=== PATIENT | female | born 1940 | race Caucasian/White ===

== ENCOUNTER → 2018-02-01 13:49 | Outpatient (CLI) | payer MEDICARE, BC, SELFPAY ==
[2018-02-01 15:03] LABS: Add Manual Diff / Slide Review NO; Basophils Percent Auto 0.9 % (0-2); Eosinophils Percent Auto 1.2 % (2-4); Hematocrit 33.4 % (36-46); Hemoglobin 11.3 g/dL (12.0-16.0); Lymphocytes Percent Auto 24.8 % (25-40); Mean Corpuscular HGB Conc 33.8 % (30-36); Mean Corpuscular Hemoglobin 33.2 PG (26-34); Mean Corpuscular Volume 98.1 fL (80-100); Monocytes Percent Auto 12.5 % (3-14); Neutrophils Absolute Auto 3400 /uL (3000-5900); Neutrophils Percent Auto 60.6 % (50-75); Platelet Count 174 X10^3/uL (150-400); Red Cell Distribution Width 16.7 % (11.6-14.8); White Blood Cell Count 5.5 X10^3/uL (4.5-11.0)
== END ==
PROVIDERS: Family Provider Internal Medicine; PCP Internal Medicine; Visit Provider Obstetrics & Gynecology
DX: C57.4 Malignant neoplasm of uterine adnexa, unspecified (principal)
CPT/HCPCS: 36415; 85025

== ENCOUNTER → 2018-02-23 16:05 | Outpatient (CLI) | payer MEDICARE, BC, SELFPAY ==
[2018-02-23 17:15] LABS: Add Manual Diff / Slide Review NO; Eosinophils Percent Auto 1.8 % (2-4); Hematocrit 32.8 % (36-46); Lymphocytes Percent Auto 35.2 % (25-40); Mean Corpuscular HGB Conc 33.5 % (30-36); Mean Corpuscular Hemoglobin 34.2 PG (26-34); Mean Corpuscular Volume 102.3 fL (80-100); Monocytes Percent Auto 15.4 % (3-14); Neutrophils Absolute Auto 2100 /uL (3000-5900); Neutrophils Percent Auto 46.6 % (50-75); Platelet Count 197 X10^3/uL (150-400); Red Blood Cell Count 3.21 X10^6/uL (4.0-5.2); Red Cell Distribution Width 16.6 % (11.6-14.8); White Blood Cell Count 4.6 X10^3/uL (4.5-11.0)
== END ==
PROVIDERS: Family Provider Internal Medicine; PCP Internal Medicine; Visit Provider Obstetrics & Gynecology
DX: C56.9 Malignant neoplasm of unspecified ovary (principal)
CPT/HCPCS: 36415; 85025

== ENCOUNTER → 2018-03-14 14:14 | Outpatient (CLI) | payer MEDICARE, BC, SELFPAY ==
[2018-03-14 14:40] LABS: Add Manual Diff / Slide Review NO; Basophils Percent Auto 1.2 % (0-2); Eosinophils Percent Auto 1.3 % (2-4); Hematocrit 33.3 % (36-46); Hemoglobin 11.4 g/dL (12.0-16.0); Lymphocytes Percent Auto 25.6 % (25-40); Mean Corpuscular HGB Conc 34.2 % (30-36); Mean Corpuscular Hemoglobin 35.4 PG (26-34); Mean Corpuscular Volume 103.6 fL (80-100); Monocytes Percent Auto 12.2 % (3-14); Neutrophils Absolute Auto 3700 /uL (3000-5900); Neutrophils Percent Auto 59.7 % (50-75); Platelet Count 184 X10^3/uL (150-400); Red Blood Cell Count 3.22 X10^6/uL (4.0-5.2); Red Cell Distribution Width 15.6 % (11.6-14.8); White Blood Cell Count 6.2 X10^3/uL (4.5-11.0)
== END ==
PROVIDERS: Family Provider Internal Medicine; PCP Internal Medicine; Visit Provider Obstetrics & Gynecology
DX: C57.4 Malignant neoplasm of uterine adnexa, unspecified (principal)
CPT/HCPCS: 36415; 85025

== ENCOUNTER → 2018-06-20 11:45 | Outpatient (CLI) | payer MEDICARE, BC, SELFPAY ==
[2018-06-20 12:04] LABS: Add Manual Diff / Slide Review NO; Basophils Percent Auto 0.4 % (0-2); Hematocrit 36.9 % (36-46); Hemoglobin 12.2 g/dL (12.0-16.0); Lymphocytes Percent Auto 20.9 % (25-40); Mean Corpuscular HGB Conc 33.2 % (30-36); Mean Corpuscular Hemoglobin 33.6 PG (26-34); Mean Corpuscular Volume 101.1 fL (80-100); Monocytes Percent Auto 3.5 % (3-14); Neutrophils Absolute Auto 3600 /uL (3000-5900); Neutrophils Percent Auto 73.2 % (50-75); Platelet Count 163 X10^3/uL (150-400); Red Blood Cell Count 3.65 X10^6/uL (4.0-5.2); Red Cell Distribution Width 12.4 % (11.6-14.8)
== END ==
PROVIDERS: Family Provider Internal Medicine; PCP Internal Medicine; Visit Provider Obstetrics & Gynecology
DX: C57.4 Malignant neoplasm of uterine adnexa, unspecified (principal); R68.89 Other general symptoms and signs
CPT/HCPCS: 36415; 85025

== ENCOUNTER → 2018-07-02 12:08 | Outpatient (CLI) | payer MEDICARE, BC, SELFPAY | PROVIDERS: Family Provider Internal Medicine; PCP Internal Medicine; Visit Provider Internal Medicine | DX: Z12.31 Encounter for screening mammogram for malignant neoplasm of breast (principal); Z53.9 Procedure and treatment not carried out, unspecified reason ==

== ENCOUNTER → 2018-07-11 10:23 | Outpatient (CLI) | payer MEDICARE, BC, SELFPAY ==
--- NOTE | 2018-07-11 | DI.MG.S_ITS ---
BILATERAL DIGITAL SCREENING MAMMOGRAM 3D/2D WITH CAD: 07/11/2018 Comparison is made to exams dated: 07/05/2017 mammogram, 07/03/2016 mammogram, and 07/01/2015 mammogram - [facility]. The tissue of both breasts is extremely dense, which lowers the sensitivity of mammography. Current study was also evaluated with a Computer Aided Detection (CAD) system. No significant masses, calcifications, or other findings are seen in either breast. There has been no significant interval change. IMPRESSION: NEGATIVE There is no mammographic evidence of malignancy. A 1 year screening mammogram is recommended. This exam was interpreted at Station ID: [id number]. NOTE: For mammograms, a report in lay terms will be sent to the patient. Approximately 15% of breast malignancies will not be visualized mammographically. In the management of a palpable breast mass, a negative mammogram must not discourage biopsy of a clinically suspicious lesion. Electronically Signed By: Kyleigh leos/[email or web address]:07/11/2018 14:28:23 copy to: Estrada Bahena letter sent: Normal Exam ACR BI-RADS Category 1: Negative [id number]
[2018-07-11 11:59] LABS: Add Manual Diff / Slide Review NO; Basophils Percent Auto 0.4 % (0-2); Eosinophils Percent Auto 0.5 % (2-4); Hematocrit 31.7 % (36-46); Hemoglobin 10.7 g/dL (12.0-16.0); Lymphocytes Percent Auto 11.8 % (25-40); Mean Corpuscular HGB Conc 33.6 % (30-36); Mean Corpuscular Volume 101.4 fL (80-100); Monocytes Percent Auto 6.7 % (3-14); Neutrophils Absolute Auto 5400 /uL (3000-5900); Neutrophils Percent Auto 80.6 % (50-75); Platelet Count 318 X10^3/uL (150-400); Red Blood Cell Count 3.13 X10^6/uL (4.0-5.2); Red Cell Distribution Width 13.3 % (11.6-14.8); White Blood Cell Count 6.7 X10^3/uL (4.5-11.0)
== END ==
PROVIDERS: Family Provider Obstetrics & Gynecology; PCP Internal Medicine; Visit Provider Internal Medicine
DX: Z12.31 Encounter for screening mammogram for malignant neoplasm of breast (principal); C57.00 Malignant neoplasm of unspecified fallopian tube
CPT/HCPCS: 36415; 77063; 77067; 85025

== ENCOUNTER → 2018-08-01 12:26 | Outpatient (CLI) | payer MEDICARE, BC, SELFPAY ==
[2018-08-01 13:03] LABS: Add Manual Diff / Slide Review NO; Basophils Percent Auto 0.9 % (0-2); Eosinophils Percent Auto 2.9 % (2-4); Hemoglobin 11.8 g/dL (12.0-16.0); Lymphocytes Percent Auto 23.1 % (25-40); Mean Corpuscular HGB Conc 33.6 % (30-36); Monocytes Percent Auto 8.6 % (3-14); Neutrophils Absolute Auto 5300 /uL (3000-5900); Neutrophils Percent Auto 64.5 % (50-75); Platelet Count 220 X10^3/uL (150-400); Red Blood Cell Count 3.47 X10^6/uL (4.0-5.2); Red Cell Distribution Width 15.6 % (11.6-14.8); White Blood Cell Count 8.2 X10^3/uL (4.5-11.0)
[2018-08-01 14:19] LABS: Alanine Aminotransferase 36 IU/L (9-52); Albumin Globulin Ratio 1.2 (1.0-2.8); Alkaline Phosphatase 79 U/L (38-126); Aspartate Aminotransferase 47 IU/L (14-36); Bilirubin Total 0.4 mg/dL (0.2-1.3); Blood Urea Nitrogen 40 mg/dL (7-17); Calcium 9.2 mg/dL (8.4-10.2); Carbon Dioxide 18 mmol/L (22-32); Chloride 108 mmol/L (98-107); Estimated Glomerular Filt Rate 53.9 mL/min (>60); Globulin 3.3 g/dL (1.7-4.1); Glucose 116 mg/dL (80-110); HEMOLYSIS < 15 (0-50); Potassium 5.2 mmol/L (3.4-5.1); Sodium 137 mmol/L (137-145); Total Protein 7.3 g/dL (6.3-8.2)
== END ==
PROVIDERS: Family Provider Obstetrics & Gynecology; PCP Internal Medicine; Visit Provider Physician Assistant Medical
DX: C56.9 Malignant neoplasm of unspecified ovary (principal)
CPT/HCPCS: 36415; 80053; 85025

== ENCOUNTER 2018-08-10 15:15 | Outpatient (RCR) | payer MEDICARE, BC, SELFPAY ==
--- NOTE | 2018-07-17 12:08 | PT.OPPOC ---
Current Diagnoses Lymphedema, not elsewhere classified (07/15/18) Sciatica, unspecified side (07/15/18) Provider Visit Care Team Role Provider Type Kristy Ortega MD Family Provider Non-Staff Primary Care Provider Specialty: Medical Address: [address] [place], [address] Email: Chuy Gudino MD Attending Provider Physician Specialty: Internal Medicine Address: [address] [place] [address], [phone] Email: [email or web address] Plan Of Care PT-OP-T Assessment and Plan Start: 07/15/18 15:14 Freq: Status: Active Protocol: Document 07/15/18 15:15 ADA (Rec: 07/17/18 12:08 ADA [id number]) Physical Therapy Assessment Rehab Potential Rehabilitation Potential Good Evaluation Complexity Number of Personal Factors/Comorbidities 3 or More Number of Body Systems Impaired 3 Clinical Presentation at Evaluation Evolving Impairments Impairments Activity Tolerance Edema Functional Mobility Goals Two Impairment Activity tolerance Life Enrichment Specialist Goal (LTG) Patient able to resume usual activities without worsening of her lymphedema. LTG Duration 8 wks One Impairment lymphedema exacerbation Retirement Goal (LTG) Decrease lymphedema sufficient to allow patient to resume use of compression stockings and self-manage her lymphedema LTG Duration 8 wks Assessment Summary Assessment Patient presents with exacerbation of her lymphedema and with signs and symptoms of cellulitis, currently being treated with antibiotics. Patient reports some improvement since starting medications. MLD is contraindicated during active infection. Patient requested no lymphedema wrapping today due to not having appropriate clothing and shoes to wear over. Tubigrip of appropriate sizes were applied to bilateral LE's for sequential compression, will do lymphedema wrapping next session and do further lymphedema management to include MLD when infection cleared as well as sequential lymphedema exercises for lymphedema reduction. Physical Therapy Plan Frequency and Duration Frequency of Treatment 3x/Week Duration of Treatment 2 months Plan of Care Start Date 07/15/18 Plan of Care End Date 09/14/18 Therapeutic Interventions Therapeutic Interventions Lymphedema Management Manual Therapy Patient/Caregiver Education Self-Care/Home Management Next Visit Focus/Plan Next Note Type Treatment Note Next Visit Plan Lymphedema wrapping, sequential lymphedema exercises. Plan of Care Dates Plan of Care Start Date 07/15/18 Plan of Care End Date 09/14/18 Please Sign and Return: I have reviewed this Plan of Care and certify that the skilled therapy services above are required to meet the patient?s needs. Physician Signature Date Printed Name and Credentials Clinical Instructor Signature Printed Name and Credentials
--- NOTE | 2018-07-17 12:08 | PT.OIE ---
Current Diagnoses Lymphedema, not elsewhere classified (07/15/18) Sciatica, unspecified side (07/15/18) Past Medical History (Last Updated 07/05/18 @ 11:04 by Charmaine Cabral) Pulmonary nodule (Chronic) Essential hypertension (Chronic) Fallopian tube carcinoma (Chronic) Hyperlipidemia (Chronic) Ovarian cancer (Chronic) Past Surgical History (Last Updated 07/05/18 @ 11:04 by Charmaine Cabral) Status post splenectomy (Inactive) Status post exploratory laparotomy (Inactive) History of partial pancreatectomy (Inactive) S/P total abdominal hysterectomy and bilateral salpingo-oophorectomy (~2013) Provider Visit Care Team Role Provider Type Kristy Ortega MD Family Provider Non-Staff Primary Care Provider Specialty: Medical Address: [address] [place] [address], [phone] Email: Chuy Gudino MD Attending Provider Physician Specialty: Internal Medicine Address: [address] [place] [address], [address] Email: [email or web address] Physical Therapy Initial Evaluation PT-OP-A Visit Information Start: 07/15/18 15:14 Freq: Status: Active Protocol: Document 07/15/18 15:15 [facility] (Rec: 07/17/18 12:08 [facility] [id number]) Out-Patient Physical Therapy Visit Information Visit Information Visit Type Initial Evaluation Visit Start Time 15:15 Visit Stop Time 16:05 Total Visit Minutes 50 Visit Number 1 Number of ENVIRONMENTAL MONITORING SPECIALIST Visits 0 Evaluation Information Evaluation Date 07/15/18 PT-OP-B Current Condition Start: 07/15/18 15:14 Freq: Status: Active Protocol: Document 07/15/18 15:15 SAK (Rec: 07/15/18 16:09 SAK [id number]) Current Condition History of Current Condition Onset Date 3 wks Current Complaints function-limiting swelling and redness bilateral LE's L greater than R History of Current Condition Started on a new chemo 3 wks ago; prior to that lymphedema was under control wearing compression stockings. Since starting chemo lymphedema worsened and became reddened and warm, unable to fit into compression stockings. Chemotherapy treatment held this week due to LE symptoms. Ultrasound performed bilateral LE's; no clot. Started on Doxacillin 07/12/18, Bactrim added today. Also has developed abdominal hernia since last seen in PT; can't have surgery due to cancer medications impact o healing. Has lost 12 lbs. Wearing Spanx to control abdominal and pelvic edema. Also reports recent symptoms of sciatica but at this time that is a secondary issue; states she has looked up some exercises and is performing on her own with some improvement of sciatica. Treatment Goals Patient/Caregiver Goals Reduce her edema sufficient to allow her to wear compression stockings and manage lymphedema independently. 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 PT-OP-J Posture/Palpation/Skin Start: 07/15/18 15:14 Freq: Status: Active Protocol: Document 07/15/18 15:15 [facility] (Rec: 07/17/18 12:08 [facility] [id number]) Skin Assessment Edema Assessment Bilateral Leg Edema Appearance Discolored Taut Comments lymphedema, reddening from toes to mid-calf PT-OP-N Lymphedema Start: 07/15/18 15:14 Freq: Status: Active Protocol: Document 07/15/18 15:15 [facility] (Rec: 07/17/18 12:08 [facility] [id number]) Lymphedema Measurements Lower Extremity Circumference Measurements Right Affected MT Heads 24.5 cm Medial Malleolus 28.6 cm 10 cm From Medial Malleolus 25.3 cm 20 cm From Medial Malleolus 29.4 cm 30 cm From Medial Malleolus 35.8 cm 40 cm From Medial Malleolus 35.2 cm 50 cm From Medial Malleolus 39.7 cm 60 cm From Medial Malleolus 39.8 cm 70 cm From Medial Malleolus 45.4 cm 80 cm From Medial Malleolus 52.5 cm Hip 57.7 cm Left Affected MT Heads 24 cm Medial Malleolus 31 cm 10 cm From Medial Malleolus 26.5 cm 20 cm From Medial Malleolus 28.8 cm 30 cm From Medial Malleolus 37 cm 40 cm From Medial Malleolus 37.4 cm 50 cm From Medial Malleolus 43 cm 60 cm From Medial Malleolus 45.5 cm 70 cm From Medial Malleolus 50.6 cm 80 cm From Medial Malleolus 58 cm Hip 62 cm Comments Lymphedema Comments skin reddened and taut mid calf to toes PT-OP-Q Treatments Start: 07/15/18 15:14 Freq: Status: Active Protocol: Document 07/15/18 15:15 [facility] (Rec: 07/15/18 16:29 [facility] [id number]) Lymphedema Treatment Manual Lymphatic Drainage Comments MLD contraindicated at this time due to active infection Lymphedema Wrapping Body Location right and left LE Materials right LE: Tubigrip size E toes to mid calf, size F toes to upper thigh left LE: Tibigrip size F toes to mid calf, size G toes to upper thigh Other Patient requests no wrapping today due to inability to don pants or shoes if wrapped. Will wear more appropriate clothing next session to allow for full lymphedema wrapping. Patient Education Other Elevate LE's as recommended by physician, wear appropriate clothing to allow wrapping if indicated next PT session. No MLD when being actively treated for infection. PT-OP-T Assessment and Plan Start: 07/15/18 15:14 Freq: Status: Active Protocol: Document 07/15/18 15:15 [facility] (Rec: 07/17/18 12:08 [facility] [id number]) Physical Therapy Assessment Rehab Potential Rehabilitation Potential Good Evaluation Complexity Number of Personal Factors/Comorbidities 3 or More Number of Body Systems Impaired 3 Clinical Presentation at Evaluation Evolving Impairments Impairments Activity Tolerance Edema Functional Mobility Goals Two Impairment Activity tolerance Locomotive Switch Operator Goal (LTG) Patient able to resume usual activities without worsening of her lymphedema. LTG Duration 8 wks One Impairment lymphedema exacerbation Locomotive Switch Operator Goal (LTG) Decrease lymphedema sufficient to allow patient to resume use of compression stockings and self-manage her lymphedema LTG Duration 8 wks Assessment Summary Assessment Patient presents with exacerbation of her lymphedema and with signs and symptoms of cellulitis, currently being treated with antibiotics. Patient reports some improvement since starting medications. MLD is contraindicated during active infection. Patient requested no lymphedema wrapping today due to not having appropriate clothing and shoes to wear over. Tubigrip of appropriate sizes were applied to bilateral LE's for sequential compression, will do lymphedema wrapping next session and do further lymphedema management to include MLD when infection cleared as well as sequential lymphedema exercises for lymphedema reduction. Physical Therapy Plan Frequency and Duration Frequency of Treatment 3x/Week Duration of Treatment 2 months Plan of Care Start Date 07/15/18 Plan of Care End Date 09/14/18 Therapeutic Interventions Therapeutic Interventions Lymphedema Management Manual Therapy Patient/Caregiver Education Self-Care/Home Management Next Visit Focus/Plan Next Note Type Treatment Note Next Visit Plan Lymphedema wrapping, sequential lymphedema exercises.
--- NOTE | 2018-07-20 16:19 | PT.OTN ---
Current Diagnoses Lymphedema, not elsewhere classified (07/20/18) Sciatica, unspecified side (07/20/18) Physical Therapy Treatment Note PT-OP-A Visit Information Start: 07/15/18 15:14 Freq: Status: Active Protocol: Document 07/20/18 15:20 SAK (Rec: 07/20/18 15:21 SAK [id number]) Out-Patient Physical Therapy Visit Information Visit Information Visit Type Treatment Note Visit Start Time 15:20 Visit Stop Time 16:00 Total Visit Minutes 40 Visit Number 2 Number of VB DEVELOPER Visits 0 Evaluation Information Evaluation Date 07/15/18 PT-OP-B Current Condition Start: 07/15/18 15:14 Freq: Status: Active Protocol: Document 07/15/18 15:15 SAK (Rec: 07/15/18 16:09 SAK [id number]) Current Condition History of Current Condition Onset Date 3 wks Current Complaints function-limiting swelling and redness bilateral LE's L greater than R History of Current Condition Started on a new chemo 3 wks ago; prior to that lymphedema was under control wearing compression stockings. Since starting chemo lymphedema worsened and became reddened and warm, unable to fit into compression stockings. Chemotherapy treatment held this week due to LE symptoms. Ultrasound performed bilateral LE's; no clot. Started on Doxacillin 07/12/18, Bactrim added today. Also has developed abdominal hernia since last seen in PT; can't have surgery due to cancer medications impact o healing. Has lost 12 lbs. Wearing Spanx to control abdominal and pelvic edema. Also reports recent symptoms of sciatica but at this time that is a secondary issue; states she has looked up some exercises and is performing on her own with some improvement of sciatica. Treatment Goals Patient/Caregiver Goals Reduce her edema sufficient to allow her to wear compression stockings and manage lymphedema independently. 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 PT-OP-C Subjective Start: 07/15/18 15:14 Freq: Status: Active Protocol: Document 07/20/18 15:21 SAK (Rec: 07/20/18 16:17 SAK [id number]) OP-PT Subjective Patient Comments Patient Comments Still on antibiotics, has been able to wear compression stockings past 3 days, still keeping legs up. Will be taking antibiotics another week. States her physician called her and agreed with no massage at this time due to infection; wants gentle ex. PT-OP-J Posture/Palpation/Skin Start: 07/15/18 15:14 Freq: Status: Active Protocol: Document 07/15/18 15:15 SAK (Rec: 07/17/18 12:08 [facility] [id number]) Skin Assessment Edema Assessment Bilateral Leg Edema Appearance Discolored Taut Comments lymphedema, reddening from toes to mid-calf PT-OP-N Lymphedema Start: 07/15/18 15:14 Freq: Status: Active Protocol: Document 07/15/18 15:15 SAK (Rec: 07/17/18 12:08 [facility] [id number]) Lymphedema Measurements Lower Extremity Circumference Measurements Right Affected MT Heads 24.5 cm Medial Malleolus 28.6 cm 10 cm From Medial Malleolus 25.3 cm 20 cm From Medial Malleolus 29.4 cm 30 cm From Medial Malleolus 35.8 cm 40 cm From Medial Malleolus 35.2 cm 50 cm From Medial Malleolus 39.7 cm 60 cm From Medial Malleolus 39.8 cm 70 cm From Medial Malleolus 45.4 cm 80 cm From Medial Malleolus 52.5 cm Hip 57.7 cm Left Affected MT Heads 24 cm Medial Malleolus 31 cm 10 cm From Medial Malleolus 26.5 cm 20 cm From Medial Malleolus 28.8 cm 30 cm From Medial Malleolus 37 cm 40 cm From Medial Malleolus 37.4 cm 50 cm From Medial Malleolus 43 cm 60 cm From Medial Malleolus 45.5 cm 70 cm From Medial Malleolus 50.6 cm 80 cm From Medial Malleolus 58 cm Hip 62 cm Comments Lymphedema Comments skin reddened and taut mid calf to toes PT-OP-Q Treatments Start: 07/15/18 15:14 Freq: Status: Active Protocol: Document 07/20/18 15:21 [facility] (Rec: 07/20/18 16:17 [facility] [id number]) Therapeutic Exercises Supine Exercises figure 4 stretch Reps/Minutes 2x piriformis stretch Reps/Minutes 2x DKTC, SKTC Reps/Minutes 2x Lymphedema Treatment Manual Lymphatic Drainage Comments MLD contraindicated at this time due to active infection Lymphedema Wrapping Materials inserted 1 chip bag and 1 horshoe ankle pad into compression stocking left medial and lateral malleolus for further edema reduction. Also encouraged wearing compression sock over current stocking due to persistant ankle lymphedema. Sequential Lymphedema Exercises Location cedric LE's Duration 15 min PT-OP-T Assessment and Plan Start: 07/15/18 15:14 Freq: Status: Active Protocol: Document 07/20/18 15:21 [facility] (Rec: 07/20/18 16:17 [facility] [id number]) Physical Therapy Assessment Goals Two Impairment Activity tolerance Bowling Ball Grader Goal (LTG) Patient able to resume usual activities without worsening of her lymphedema. LTG Duration 8 wks One Impairment lymphedema exacerbation Bowling Ball Grader Goal (LTG) Decrease lymphedema sufficient to allow patient to resume use of compression stockings and self-manage her lymphedema LTG Duration 8 wks Assessment Summary Assessment Improved edema with patient now able to wear her compression stockings though on left does not appear adequate compression at ankle with significant edema med and lateral malleoli regions; trial use of chip bag and horsehoe ankle pad. Patient also instructed to try wearing compression sock over current stocking. May need to consider new compression stocking. Also instructed in LE stretches to address recent sciatic pain which appears caused by patient pushing her in his wheelchair; demonstrates some weakness and decreased flexibility throuh her hips. Physical Therapy Plan Frequency and Duration Frequency of Treatment 3x/Week Duration of Treatment 2 months Plan of Care Start Date 07/15/18 Plan of Care End Date 09/14/18 Therapeutic Interventions Therapeutic Interventions Lymphedema Management Manual Therapy Patient/Caregiver Education Self-Care/Home Management Next Visit Focus/Plan Next Note Type Treatment Note Next Visit Plan Circumerential measurements, continue with lymphedema management, review HEP for sciatica and progress ther ex as indicated.
--- NOTE | 2018-08-10 16:23 | PT.OTN ---
Current Diagnoses Lymphedema, not elsewhere classified (08/10/18) Sciatica, unspecified side (08/10/18) Physical Therapy Treatment Note PT-OP-A Visit Information Start: 07/15/18 15:14 Freq: Status: Active Protocol: Document 07/20/18 15:20 [facility] (Rec: 07/20/18 15:21 [facility] [id number]) Out-Patient Physical Therapy Visit Information Visit Information Visit Type Treatment Note Visit Start Time 15:20 Visit Stop Time 16:00 Total Visit Minutes 40 Visit Number 2 Number of PARKING TECHNICIAN Visits 0 Evaluation Information Evaluation Date 07/15/18 PT-OP-B Current Condition Start: 07/15/18 15:14 Freq: Status: Active Protocol: Document 07/15/18 15:15 [facility] (Rec: 07/15/18 16:09 [facility] [id number]) Current Condition History of Current Condition Onset Date 3 wks Current Complaints function-limiting swelling and redness bilateral LE's L greater than R History of Current Condition Started on a new chemo 3 wks ago; prior to that lymphedema was under control wearing compression stockings. Since starting chemo lymphedema worsened and became reddened and warm, unable to fit into compression stockings. Chemotherapy treatment held this week due to LE symptoms. Ultrasound performed bilateral LE's; no clot. Started on Doxacillin 07/12/18, Bactrim added today. Also has developed abdominal hernia since last seen in PT; can't have surgery due to cancer medications impact o healing. Has lost 12 lbs. Wearing Spanx to control abdominal and pelvic edema. Also reports recent symptoms of sciatica but at this time that is a secondary issue; states she has looked up some exercises and is performing on her own with some improvement of sciatica. Treatment Goals Patient/Caregiver Goals Reduce her edema sufficient to allow her to wear compression stockings and manage lymphedema independently. 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 PT-OP-C Subjective Start: 07/15/18 15:14 Freq: Status: Active Protocol: Document 08/10/18 15:17 [facility] (Rec: 08/10/18 16:23 [facility] [id number]) OP-PT Subjective Patient Comments Patient Comments Completed antibiotics, swelling went down but reports she started back on chemo, next session next week and swelling has increased again. Able to wear stockings so far . PT-OP-J Posture/Palpation/Skin Start: 07/15/18 15:14 Freq: Status: Active Protocol: Document 07/15/18 15:15 [facility] (Rec: 07/17/18 12:08 [facility] [id number]) Skin Assessment Edema Assessment Bilateral Leg Edema Appearance Discolored Taut Comments lymphedema, reddening from toes to mid-calf PT-OP-N Lymphedema Start: 07/15/18 15:14 Freq: Status: Active Protocol: Document 08/10/18 15:17 [facility] (Rec: 08/10/18 16:23 [facility] [id number]) Lymphedema Measurements Lower Extremity Circumference Measurements Right Affected MT Heads 23.5 cm Medial Malleolus 25.1 cm 10 cm From Medial Malleolus 21.3 cm 20 cm From Medial Malleolus 28 cm 30 cm From Medial Malleolus 33.7 cm 40 cm From Medial Malleolus 33 cm 50 cm From Medial Malleolus 39 cm 60 cm From Medial Malleolus 45.3 cm Left Affected MT Heads 23.3 cm Medial Malleolus 28.2 cm 10 cm From Medial Malleolus 23.3 cm 20 cm From Medial Malleolus 28.4 cm 30 cm From Medial Malleolus 34.6 cm 40 cm From Medial Malleolus 33.4 cm 50 cm From Medial Malleolus 42.6 cm 60 cm From Medial Malleolus 45.1 cm PT-OP-Q Treatments Start: 07/15/18 15:14 Freq: Status: Active Protocol: Document 08/10/18 15:17 [facility] (Rec: 08/10/18 16:23 [facility] [id number]) Lymphedema Treatment Manual Lymphatic Drainage Duration 30 min Comments MLD left LE PT-OP-T Assessment and Plan Start: 07/15/18 15:14 Freq: Status: Active Protocol: Document 08/10/18 15:17 [facility] (Rec: 08/10/18 16:23 [facility] [id number]) Physical Therapy Assessment Goals Two Impairment Activity tolerance Favor Maker Goal (LTG) Patient able to resume usual activities without worsening of her lymphedema. LTG Duration 8 wks One Impairment lymphedema exacerbation Favor Maker Goal (LTG) Decrease lymphedema sufficient to allow patient to resume use of compression stockings and self-manage her lymphedema LTG Duration 8 wks Assessment Summary Assessment Decreased measurements compared to initial evaluation though with resumption of chemotherapy patient noting an increase again. Will need further monitoring and treatment for lymphedema as she attempts to complete her chemotherapy treatments. Physical Therapy Plan Frequency and Duration Frequency of Treatment 3x/Week Duration of Treatment 2 months Plan of Care Start Date 07/15/18 Plan of Care End Date 09/14/18 Therapeutic Interventions Therapeutic Interventions Lymphedema Management Manual Therapy Patient/Caregiver Education Self-Care/Home Management Next Visit Focus/Plan Next Note Type Treatment Note Next Visit Plan Circumerential measurements, continue with lymphedema management, review HEP for sciatica and progress ther ex as indicated. End session with recumbent elliptical to facilitate lymphatic flow.
--- NOTE | 2018-10-11 08:38 | PT.OPDS ---
Current Diagnoses Lymphedema, not elsewhere classified (08/10/18) Sciatica, unspecified side (08/10/18) Provider Visit Care Team Role Provider Type Kristy Ortega MD Family Provider Non-Staff Primary Care Provider Specialty: Medical Address: [address] [place], [address] Email: Chuy Gudino MD Attending Provider Physician Specialty: Internal Medicine Address: [address] [place] [address], [id number] Email: [email or web address] Visit Number Visit Number 2 Discharge Summary PT-OP-B Current Condition Start: 07/15/18 15:14 Freq: Status: Active Protocol: Document 07/15/18 15:15 [facility] (Rec: 07/15/18 16:09 [facility] [id number]) Current Condition History of Current Condition Onset Date 3 wks Current Complaints function-limiting swelling and redness bilateral LE's L greater than R History of Current Condition Started on a new chemo 3 wks ago; prior to that lymphedema was under control wearing compression stockings. Since starting chemo lymphedema worsened and became reddened and warm, unable to fit into compression stockings. Chemotherapy treatment held this week due to LE symptoms. Ultrasound performed bilateral LE's; no clot. Started on Doxacillin 07/12/18, Bactrim added today. Also has developed abdominal hernia since last seen in PT; can't have surgery due to cancer medications impact o healing. Has lost 12 lbs. Wearing Spanx to control abdominal and pelvic edema. Also reports recent symptoms of sciatica but at this time that is a secondary issue; states she has looked up some exercises and is performing on her own with some improvement of sciatica. Treatment Goals Patient/Caregiver Goals Reduce her edema sufficient to allow her to wear compression stockings and manage lymphedema independently. 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 PT-OP-C Subjective Start: 07/15/18 15:14 Freq: Status: Active Protocol: Document 08/10/18 15:17 [facility] (Rec: 08/10/18 16:23 [facility] [id number]) OP-PT Subjective Patient Comments Patient Comments Completed antibiotics, swelling went down but reports she started back on chemo, next session next week and swelling has increased again. Able to wear stockings so far . PT-OP-J Posture/Palpation/Skin Start: 07/15/18 15:14 Freq: Status: Active Protocol: Document 07/15/18 15:15 [facility] (Rec: 07/17/18 12:08 [facility] [id number]) Skin Assessment Edema Assessment Bilateral Leg Edema Appearance Discolored Taut Comments lymphedema, reddening from toes to mid-calf PT-OP-N Lymphedema Start: 07/15/18 15:14 Freq: Status: Active Protocol: Document 08/10/18 15:17 [facility] (Rec: 08/10/18 16:23 [facility] [id number]) Lymphedema Measurements Lower Extremity Circumference Measurements Right Affected MT Heads 23.5 cm Medial Malleolus 25.1 cm 10 cm From Medial Malleolus 21.3 cm 20 cm From Medial Malleolus 28 cm 30 cm From Medial Malleolus 33.7 cm 40 cm From Medial Malleolus 33 cm 50 cm From Medial Malleolus 39 cm 60 cm From Medial Malleolus 45.3 cm Left Affected MT Heads 23.3 cm Medial Malleolus 28.2 cm 10 cm From Medial Malleolus 23.3 cm 20 cm From Medial Malleolus 28.4 cm 30 cm From Medial Malleolus 34.6 cm 40 cm From Medial Malleolus 33.4 cm 50 cm From Medial Malleolus 42.6 cm 60 cm From Medial Malleolus 45.1 cm PT-OP-T Assessment and Plan Start: 07/15/18 15:14 Freq: Status: Active Protocol: Document 10/11/18 08:35 [facility] (Rec: 10/11/18 08:38 [facility] [id number]) Physical Therapy Assessment Goals Two Impairment Activity tolerance Business Process Specialist Goal (LTG) Patient able to resume usual activities without worsening of her lymphedema. goal met LTG Duration 8 wks One Impairment lymphedema exacerbation Business Process Specialist Goal (LTG) Decrease lymphedema sufficient to allow patient to resume use of compression stockings and self-manage her lymphedema goal met LTG Duration 8 wks Physical Therapy Plan Discharge Physical Therapy Discharge Reasons Goals Met Discharge Comments medical issues
== END 2018-08-11 11:42 ==
LOC: PHYS 15:15
PROVIDERS: Family Provider Obstetrics & Gynecology; PCP Obstetrics & Gynecology; Visit Provider Internal Medicine
DX: I89.0 Lymphedema, not elsewhere classified (principal); M54.30 Sciatica, unspecified side
CPT/HCPCS: 97110; 97140; 97162; 97535

== ENCOUNTER → 2018-08-22 12:11 | Outpatient (CLI) | payer MEDICARE, BC, SELFPAY ==
[2018-08-22 12:29] LABS: Add Manual Diff / Slide Review NO; Basophils Percent Auto 1.6 % (0-2); Eosinophils Percent Auto 1.3 % (2-4); Hematocrit 30.3 % (36-46); Hemoglobin 10.1 g/dL (12.0-16.0); Lymphocytes Percent Auto 22.9 % (25-40); Mean Corpuscular HGB Conc 33.5 % (30-36); Mean Corpuscular Volume 101.7 fL (80-100); Neutrophils Absolute Auto 3800 /uL (1500-7000); Neutrophils Percent Auto 68.2 % (50-75); Platelet Count 250 X10^3/uL (150-400); Red Blood Cell Count 2.98 X10^6/uL (4.0-5.2); White Blood Cell Count 5.6 X10^3/uL (4.5-11.0)
== END ==
PROVIDERS: Family Provider Obstetrics & Gynecology; PCP Internal Medicine; Visit Provider Obstetrics & Gynecology
DX: C57.4 Malignant neoplasm of uterine adnexa, unspecified (principal)
CPT/HCPCS: 36415; 85025

== ENCOUNTER → 2018-09-12 12:26 | Outpatient (CLI) | payer MEDICARE, BC, SELFPAY ==
[2018-09-12 12:48] LABS: Add Manual Diff / Slide Review NO; Eosinophils Percent Auto 1.4 % (2-4); Hematocrit 34.5 % (36-46); Hemoglobin 11.5 g/dL (12.0-16.0); Lymphocytes Percent Auto 16.4 % (25-40); Mean Corpuscular HGB Conc 33.2 % (30-36); Mean Corpuscular Hemoglobin 34.4 PG (26-34); Mean Corpuscular Volume 103.4 fL (80-100); Monocytes Percent Auto 10.6 % (3-14); Neutrophils Absolute Auto 7000 /uL (1500-7000); Neutrophils Percent Auto 70.6 % (50-75); Platelet Count 207 X10^3/uL (150-400); Red Blood Cell Count 3.34 X10^6/uL (4.0-5.2); White Blood Cell Count 9.9 X10^3/uL (4.5-11.0)
[2018-09-12 13:00] LABS: Alanine Aminotransferase 26 IU/L (9-52); Albumin 4.3 g/dL (3.5-5.0); Albumin Globulin Ratio 1.3 (1.0-2.8); Alkaline Phosphatase 70 U/L (38-126); Aspartate Aminotransferase 37 IU/L (14-36); BUN Creatinine Ratio 25.5 (6-22); Bilirubin Total 0.3 mg/dL (0.2-1.3); Bilirubin Unconjugated 0.2 mg/dL (0.0-1.1); Blood Urea Nitrogen 28 mg/dL (7-17); Calcium 9.4 mg/dL (8.4-10.2); Carbon Dioxide 25 mmol/L (22-32); Chloride 103 mmol/L (98-107); Estimated Glomerular Filt Rate 48.3 mL/min (>60); Globulin 3.2 g/dL (1.7-4.1); Glucose 104 mg/dL (80-110); HEMOLYSIS 16 (0-50); Lactate Dehydrogenase 551 U/L (313-618); Potassium 4.5 mmol/L (3.4-5.1); Sodium 141 mmol/L (137-145); Total Protein 7.5 g/dL (6.3-8.2)
== END ==
PROVIDERS: PCP Internal Medicine; Visit Provider Obstetrics & Gynecology
DX: C57.4 Malignant neoplasm of uterine adnexa, unspecified (principal)
CPT/HCPCS: 36415; 80053; 80076; 83615; 83735; 85025

== ENCOUNTER → 2018-09-19 12:14 | Outpatient (CLI) | payer MEDICARE, BC, SELFPAY ==
[2018-09-19 12:54] LABS: Add Manual Diff / Slide Review NO; Basophils Absolute Auto 100 /uL (0-100); Basophils Percent Auto 0.9 % (0-2); Eosinophils Absolute Auto 200 /uL (0-450); Eosinophils Percent Auto 2.4 % (2-4); Hematocrit 33.8 % (36-46); Hemoglobin 11.1 g/dL (12.0-16.0); Lymphocytes Absolute Auto 1100 /uL (1100-4500); Lymphocytes Percent Auto 16.8 % (25-40); Mean Corpuscular HGB Conc 32.8 % (30-36); Mean Corpuscular Hemoglobin 33.8 PG (26-34); Mean Corpuscular Volume 102.9 fL (80-100); Monocytes Absolute Auto 200 /uL (0-900); Monocytes Percent Auto 3.7 % (3-14); Neutrophils Absolute Auto 4900 /uL (1500-7000); Neutrophils Percent Auto 76.2 % (50-75); Platelet Count 177 X10^3/uL (150-400); Red Blood Cell Count 3.29 X10^6/uL (4.0-5.2); Red Cell Distribution Width 17.1 % (11.6-14.8); White Blood Cell Count 6.5 X10^3/uL (4.5-11.0)
== END ==
PROVIDERS: PCP Internal Medicine; Visit Provider Obstetrics & Gynecology
DX: C56.9 Malignant neoplasm of unspecified ovary (principal)
CPT/HCPCS: 36415; 85025

== ENCOUNTER → 2018-09-26 12:13 | Outpatient (CLI) | payer MEDICARE, BC, SELFPAY ==
[2018-09-26 14:22] LABS: Add Manual Diff / Slide Review NO; Basophils Absolute Auto 0 /uL (0-100); Basophils Percent Auto 0.7 % (0-2); Eosinophils Absolute Auto 100 /uL (0-450); Hematocrit 31.9 % (36-46); Hemoglobin 10.7 g/dL (12.0-16.0); Lymphocytes Absolute Auto 1000 /uL (1100-4500); Lymphocytes Percent Auto 29.2 % (25-40); Mean Corpuscular HGB Conc 33.6 % (30-36); Mean Corpuscular Hemoglobin 34.5 PG (26-34); Mean Corpuscular Volume 102.9 fL (80-100); Monocytes Absolute Auto 200 /uL (0-900); Monocytes Percent Auto 6.6 % (3-14); Neutrophils Absolute Auto 2000 /uL (1500-7000); Neutrophils Percent Auto 60.5 % (50-75); Red Cell Distribution Width 16.3 % (11.6-14.8); White Blood Cell Count 3.3 X10^3/uL (4.5-11.0)
[2018-09-26 14:43] LABS: Anisocytosis 1+; Macrocytosis 1+; Poikilocytosis 1+
[2018-09-26 19:29] LABS: Platelet Count 215 X10^3/uL (150-400)
== END ==
PROVIDERS: Family Provider Obstetrics & Gynecology; PCP Internal Medicine; Visit Provider Nurse Practitioner Family
DX: C57.4 Malignant neoplasm of uterine adnexa, unspecified (principal)
CPT/HCPCS: 36415; 85025

== ENCOUNTER → 2018-10-10 11:45 | Outpatient (CLI) | payer MEDICARE, BC, SELFPAY ==
[2018-10-10 12:28] LABS: Alanine Aminotransferase 34 IU/L (9-52); Albumin 4.3 g/dL (3.5-5.0); Albumin Globulin Ratio 1.3 (1.0-2.8); Alkaline Phosphatase 88 U/L (38-126); Aspartate Aminotransferase 42 IU/L (14-36); BUN Creatinine Ratio 31.1 (6-22); Bilirubin Total 0.4 mg/dL (0.2-1.3); Bilirubin Unconjugated 0.3 mg/dL (0.0-1.1); Blood Urea Nitrogen 28 mg/dL (7-17); Carbon Dioxide 25 mmol/L (22-32); Chloride 100 mmol/L (98-107); Estimated Glomerular Filt Rate > 60.0 mL/min (>60); Globulin 3.3 g/dL (1.7-4.1); Glucose 100 mg/dL (80-110); HEMOLYSIS < 15 (0-50); Lactate Dehydrogenase 509 U/L (313-618); Potassium 4.4 mmol/L (3.4-5.1); Sodium 137 mmol/L (137-145); Total Protein 7.6 g/dL (6.3-8.2)
[2018-10-10 12:39] LABS: Add Manual Diff / Slide Review NO; Basophils Absolute Auto 0 /uL (0-100); Basophils Percent Auto 0.5 % (0-2); Eosinophils Absolute Auto 100 /uL (0-450); Hemoglobin 11.4 g/dL (12.0-16.0); Lymphocytes Absolute Auto 1500 /uL (1100-4500); Mean Corpuscular HGB Conc 32.6 % (30-36); Mean Corpuscular Hemoglobin 33.8 PG (26-34); Mean Corpuscular Volume 103.5 fL (80-100); Monocytes Absolute Auto 900 /uL (0-900); Neutrophils Absolute Auto 4200 /uL (1500-7000); Neutrophils Percent Auto 62.5 % (50-75); Platelet Count 216 X10^3/uL (150-400); Red Blood Cell Count 3.38 X10^6/uL (4.0-5.2); Red Cell Distribution Width 16.6 % (11.6-14.8); White Blood Cell Count 6.7 X10^3/uL (4.5-11.0)
== END ==
PROVIDERS: Family Provider Obstetrics & Gynecology; PCP Internal Medicine; Visit Provider Obstetrics & Gynecology
DX: C57.4 Malignant neoplasm of uterine adnexa, unspecified (principal); E83.42 Hypomagnesemia
CPT/HCPCS: 36415; 80053; 80076; 83615; 83735; 85025

== ENCOUNTER → 2018-10-17 12:23 | Outpatient (CLI) | payer MEDICARE, BC, SELFPAY ==
[2018-10-17 12:44] LABS: Add Manual Diff / Slide Review NO; Basophils Absolute Auto 200 /uL (0-100); Basophils Percent Auto 3.2 % (0-2); Eosinophils Absolute Auto 100 /uL (0-450); Eosinophils Percent Auto 1.1 % (2-4); Hematocrit 34.3 % (36-46); Hemoglobin 11.6 g/dL (12.0-16.0); Lymphocytes Absolute Auto 1100 /uL (1100-4500); Lymphocytes Percent Auto 16.2 % (25-40); Mean Corpuscular HGB Conc 33.9 % (30-36); Mean Corpuscular Hemoglobin 34.1 PG (26-34); Mean Corpuscular Volume 100.5 fL (80-100); Monocytes Absolute Auto 400 /uL (0-900); Monocytes Percent Auto 5.1 % (3-14); Neutrophils Absolute Auto 5200 /uL (1500-7000); Neutrophils Percent Auto 74.4 % (50-75); Platelet Count 190 X10^3/uL (150-400); Red Blood Cell Count 3.41 X10^6/uL (4.0-5.2); Red Cell Distribution Width 15.6 % (11.6-14.8)
== END ==
PROVIDERS: Family Provider Obstetrics & Gynecology; PCP Internal Medicine; Visit Provider Nurse Practitioner Family
DX: C11.2 Malignant neoplasm of lateral wall of nasopharynx (principal); C57.4 Malignant neoplasm of uterine adnexa, unspecified
CPT/HCPCS: 36415; 85025

== ENCOUNTER → 2018-11-07 10:52 | Outpatient (CLI) | payer MEDICARE, BC, SELFPAY ==
[2018-11-07 11:39] LABS: Add Manual Diff / Slide Review NO; Basophils Absolute Auto 100 /uL (0-100); Basophils Percent Auto 1.5 % (0-2); Eosinophils Absolute Auto 100 /uL (0-450); Eosinophils Percent Auto 1.7 % (2-4); Hematocrit 35.8 % (36-46); Hemoglobin 11.8 g/dL (12.0-16.0); Lymphocytes Absolute Auto 1300 /uL (1100-4500); Mean Corpuscular Hemoglobin 33.7 PG (26-34); Monocytes Absolute Auto 800 /uL (0-900); Monocytes Percent Auto 11.7 % (3-14); Neutrophils Absolute Auto 4500 /uL (1500-7000); Neutrophils Percent Auto 66.1 % (50-75); Platelet Count 215 X10^3/uL (150-400); Red Blood Cell Count 3.51 X10^6/uL (4.0-5.2); Red Cell Distribution Width 15.6 % (11.6-14.8); White Blood Cell Count 6.9 X10^3/uL (4.5-11.0)
[2018-11-07 11:51] LABS: Alanine Aminotransferase 32 IU/L (9-52); Albumin 4.4 g/dL (3.5-5.0); Albumin Globulin Ratio 1.3 (1.0-2.8); Alkaline Phosphatase 84 U/L (38-126); Aspartate Aminotransferase 44 IU/L (14-36); BUN Creatinine Ratio 30.9 (6-22); Bilirubin Total 0.5 mg/dL (0.2-1.3); Bilirubin Unconjugated 0.3 mg/dL (0.0-1.1); Blood Urea Nitrogen 34 mg/dL (7-17); Calcium 9.5 mg/dL (8.4-10.2); Carbon Dioxide 27 mmol/L (22-32); Chloride 101 mmol/L (98-107); Estimated Glomerular Filt Rate 48.3 mL/min (>60); Globulin 3.5 g/dL (1.7-4.1); Glucose 101 mg/dL (80-110); HEMOLYSIS < 15 (0-50); Lactate Dehydrogenase 540 U/L (313-618); Magnesium 2.1 mg/dL (1.6-2.3); Sodium 137 mmol/L (137-145); Total Protein 7.9 g/dL (6.3-8.2)
== END ==
PROVIDERS: Family Provider Obstetrics & Gynecology; PCP Internal Medicine; Visit Provider Obstetrics & Gynecology
DX: C57.4 Malignant neoplasm of uterine adnexa, unspecified (principal)
CPT/HCPCS: 36415; 80053; 80076; 83615; 83735; 85025

== ENCOUNTER → 2018-11-14 16:24 | Outpatient (CLI) | payer MEDICARE, BC, SELFPAY ==
[2018-11-14 17:47] LABS: Alanine Aminotransferase 34 IU/L (9-52); Albumin Globulin Ratio 1.3 (1.0-2.8); Alkaline Phosphatase 69 U/L (38-126); Aspartate Aminotransferase 31 IU/L (14-36); Bilirubin Total 0.4 mg/dL (0.2-1.3); Bilirubin Unconjugated 0.3 mg/dL (0.0-1.1); Blood Urea Nitrogen 32 mg/dL (7-17); Carbon Dioxide 25 mmol/L (22-32); Chloride 101 mmol/L (98-107); Estimated Glomerular Filt Rate 53.9 mL/min (>60); Glucose 95 mg/dL (80-110); HEMOLYSIS < 15 (0-50); Lactate Dehydrogenase 475 U/L (313-618); Magnesium 1.9 mg/dL (1.6-2.3); Potassium 4.5 mmol/L (3.4-5.1); Sodium 135 mmol/L (137-145)
== END ==
PROVIDERS: Family Provider Obstetrics & Gynecology; PCP Internal Medicine; Visit Provider Obstetrics & Gynecology
DX: E83.40 Disorders of magnesium metabolism, unspecified (principal)
CPT/HCPCS: 36415; 80053; 80076; 83615; 83735

== ENCOUNTER → 2018-11-15 09:18 | Outpatient (CLI) | payer MEDICARE, BC, SELFPAY ==
[2018-11-15 09:33] LABS: Add Manual Diff / Slide Review NO; Basophils Absolute Auto 100 /uL (0-100); Basophils Percent Auto 1.3 % (0-2); Eosinophils Absolute Auto 100 /uL (0-450); Eosinophils Percent Auto 1.8 % (2-4); Hematocrit 36.5 % (36-46); Lymphocytes Absolute Auto 1100 /uL (1100-4500); Lymphocytes Percent Auto 17.4 % (25-40); Mean Corpuscular HGB Conc 32.9 % (30-36); Mean Corpuscular Hemoglobin 33.6 PG (26-34); Monocytes Absolute Auto 200 /uL (0-900); Neutrophils Absolute Auto 4700 /uL (1500-7000); Neutrophils Percent Auto 76.5 % (50-75); Platelet Count 185 X10^3/uL (150-400); Red Blood Cell Count 3.58 X10^6/uL (4.0-5.2); Red Cell Distribution Width 15.5 % (11.6-14.8); White Blood Cell Count 6.1 X10^3/uL (4.5-11.0)
== END ==
PROVIDERS: PCP Internal Medicine; Visit Provider Obstetrics & Gynecology
DX: C57.4 Malignant neoplasm of uterine adnexa, unspecified (principal)
CPT/HCPCS: 85025

== ENCOUNTER → 2018-11-29 14:39 | Outpatient (CLI) | payer MEDICARE, BC, SELFPAY ==
--- NOTE | 2018-11-29 | DI.MG.S_ITS ---
UNILATERAL RIGHT DIGITAL DIAGNOSTIC MAMMOGRAM 3D/2D: 11/29/2018 CLINICAL: .5 cm lesion Right breast seen on CT 11/04/18. Comparison is made to exams dated: 07/11/2018 mammogram, 07/05/2017 mammogram, and 07/03/2016 mammogram - [facility]. The tissue of right breast is extremely dense, which lowers the sensitivity of mammography. No significant masses, calcifications, or other findings are seen in the breast. IMPRESSION: INCOMPLETE: NEEDS ADDITIONAL IMAGING EVALUATION There is no abnormality seen in the right breast to correspond with the CT finding in the outer aspect, however, ultrasound is recommended. This exam was interpreted at Station ID: [id number]. NOTE: For mammograms, a report in lay terms will be sent to the patient. Approximately 15% of breast malignancies will not be visualized mammographically. In the management of a palpable breast mass, a negative mammogram must not discourage biopsy of a clinically suspicious lesion. Electronically Signed By: Piotr baker/:11/29/2018 15:36:09 copy to: Estrada Bahena letter sent: Need Ultrasound ACR BI-RADS Category 0: Incomplete [id number]
--- NOTE | 2018-11-29 | DI.US.S_ITS ---
LIMITED ULTRASOUND OF RIGHT BREAST: 11/29/2018 CLINICAL: Patient returns for additional imaging over a suspected mass in the right breast. Comparison is made to exams dated: 11/29/2018 mammogram, 07/05/2017 mammogram, 07/11/2018 mammogram, 07/03/2016 mammogram, 07/01/2015 mammogram, and 06/29/2014 mammogram - [facility]. Color flow and real-time ultrasound of the right breast outer aspect were performed on the areas of interest. There is 0.8 cm x 0.2 cm x 0.5 cm oval mass with a circumscribed margin in the right breast at 9 o'clock posterior depth. This oval mass is hypoechoic. Color flow imaging demonstrates that there is an adjacent vascularity. This may correspond to the finding on prior CT. IMPRESSION: PROBABLY BENIGN The 0.8 cm x 0.2 cm x 0.5 cm oval mass in the right breast resembles a lymph node and is probably benign. A follow-up ultrasound in 3 months is recommended. A follow-up ultrasound in 3 months is recommended. This may not correspond to the finding on prior CT. Attention is recommended to the finding on followup CT studies. This exam was interpreted at Station ID: [id number]. Electronically Signed By: Piotr baker/:11/29/2018 17:30:25 letter sent: Followup Recommended Ultrasound BI-RADS: 3 Probably benign
== END ==
PROVIDERS: PCP Internal Medicine; Visit Provider Obstetrics & Gynecology
DX: R92.8 Other abnormal and inconclusive findings on diagnostic imaging of breast (principal); N63.10 Unspecified lump in the right breast, unspecified quadrant
CPT/HCPCS: 76642; 77065; G0279

== ENCOUNTER → 2018-12-05 11:51 | Outpatient (CLI) | payer MEDICARE, BC, SELFPAY ==
[2018-12-05 12:32] LABS: Add Manual Diff / Slide Review NO; Basophils Absolute Auto 100 /uL (0-100); Basophils Percent Auto 1.4 % (0-2); Eosinophils Absolute Auto 100 /uL (0-450); Eosinophils Percent Auto 0.9 % (2-4); Hematocrit 38.1 % (36-46); Hemoglobin 12.4 g/dL (12.0-16.0); Lymphocytes Absolute Auto 1600 /uL (1100-4500); Lymphocytes Percent Auto 19.6 % (25-40); Mean Corpuscular HGB Conc 32.5 % (30-36); Mean Corpuscular Hemoglobin 32.6 PG (26-34); Mean Corpuscular Volume 100.4 fL (80-100); Monocytes Absolute Auto 800 /uL (0-900); Monocytes Percent Auto 10.1 % (3-14); Neutrophils Absolute Auto 5700 /uL (1500-7000); Platelet Count 243 X10^3/uL (150-400); Red Cell Distribution Width 15.7 % (11.6-14.8); White Blood Cell Count 8.4 X10^3/uL (4.5-11.0)
[2018-12-05 13:53] LABS: Alanine Aminotransferase 33 IU/L (9-52); Albumin 4.3 g/dL (3.5-5.0); Albumin Globulin Ratio 1.4 (1.0-2.8); Alkaline Phosphatase 88 U/L (38-126); Aspartate Aminotransferase 36 IU/L (14-36); Bilirubin Total 0.4 mg/dL (0.2-1.3); Bilirubin Unconjugated 0.3 mg/dL (0.0-1.1); Blood Urea Nitrogen 29 mg/dL (7-17); Calcium 9.6 mg/dL (8.4-10.2); Carbon Dioxide 26 mmol/L (22-32); Chloride 100 mmol/L (98-107); Estimated Glomerular Filt Rate 53.9 mL/min (>60); Glucose 93 mg/dL (80-110); HEMOLYSIS < 15 (0-50); Lactate Dehydrogenase 575 U/L (313-618); Magnesium 1.8 mg/dL (1.6-2.3); Potassium 4.7 mmol/L (3.4-5.1); Sodium 137 mmol/L (137-145); Total Protein 7.3 g/dL (6.3-8.2)
== END ==
PROVIDERS: PCP Internal Medicine; Visit Provider Obstetrics & Gynecology
DX: C57.4 Malignant neoplasm of uterine adnexa, unspecified (principal); E83.40 Disorders of magnesium metabolism, unspecified
CPT/HCPCS: 36415; 80053; 80076; 83615; 83735; 85025

== ENCOUNTER → 2018-12-12 12:02 | Outpatient (CLI) | payer MEDICARE, BC, SELFPAY ==
[2018-12-12 12:19] LABS: Add Manual Diff / Slide Review NO; Basophils Absolute Auto 100 /uL (0-100); Basophils Percent Auto 1.2 % (0-2); Eosinophils Absolute Auto 100 /uL (0-450); Eosinophils Percent Auto 1.6 % (2-4); Hematocrit 36.2 % (36-46); Hemoglobin 11.9 g/dL (12.0-16.0); Lymphocytes Absolute Auto 1300 /uL (1100-4500); Lymphocytes Percent Auto 22.2 % (25-40); Mean Corpuscular HGB Conc 32.9 % (30-36); Mean Corpuscular Hemoglobin 32.8 PG (26-34); Mean Corpuscular Volume 99.6 fL (80-100); Monocytes Absolute Auto 200 /uL (0-900); Monocytes Percent Auto 3.5 % (3-14); Neutrophils Absolute Auto 4200 /uL (1500-7000); Neutrophils Percent Auto 71.5 % (50-75); Platelet Count 183 X10^3/uL (150-400); Red Blood Cell Count 3.63 X10^6/uL (4.0-5.2); Red Cell Distribution Width 15.6 % (11.6-14.8); White Blood Cell Count 5.9 X10^3/uL (4.5-11.0)
== END ==
PROVIDERS: PCP Internal Medicine; Visit Provider Obstetrics & Gynecology
DX: C57.4 Malignant neoplasm of uterine adnexa, unspecified (principal)
CPT/HCPCS: 36415; 85025

== ENCOUNTER → 2019-01-02 12:28 | Outpatient (CLI) | payer MEDICARE, BC, SELFPAY ==
[2019-01-02 12:46] LABS: Add Manual Diff / Slide Review NO; Basophils Absolute Auto 100 /uL (0-100); Basophils Percent Auto 1.3 % (0-2); Eosinophils Absolute Auto 100 /uL (0-450); Hematocrit 38.4 % (36-46); Hemoglobin 12.5 g/dL (12.0-16.0); Lymphocytes Absolute Auto 2000 /uL (1100-4500); Lymphocytes Percent Auto 27.5 % (25-40); Mean Corpuscular HGB Conc 32.7 % (30-36); Mean Corpuscular Hemoglobin 32.5 PG (26-34); Mean Corpuscular Volume 99.4 fL (80-100); Monocytes Absolute Auto 800 /uL (0-900); Monocytes Percent Auto 10.6 % (3-14); Neutrophils Absolute Auto 4300 /uL (1500-7000); Neutrophils Percent Auto 59.6 % (50-75); Platelet Count 210 X10^3/uL (150-400); Red Blood Cell Count 3.86 X10^6/uL (4.0-5.2); Red Cell Distribution Width 15.8 % (11.6-14.8); White Blood Cell Count 7.2 X10^3/uL (4.5-11.0)
[2019-01-02 13:01] LABS: Alanine Aminotransferase 25 IU/L (9-52); Albumin 4.6 g/dL (3.5-5.0); Albumin Globulin Ratio 1.4 (1.0-2.8); Alkaline Phosphatase 93 U/L (38-126); Aspartate Aminotransferase 38 IU/L (14-36); Bilirubin Total 0.4 mg/dL (0.2-1.3); Bilirubin Unconjugated 0.4 mg/dL (0.0-1.1); Blood Urea Nitrogen 23 mg/dL (7-17); Calcium 9.4 mg/dL (8.4-10.2); Carbon Dioxide 27 mmol/L (22-32); Chloride 99 mmol/L (98-107); Estimated Glomerular Filt Rate 53.9 mL/min (>60); Globulin 3.4 g/dL (1.7-4.1); Glucose 98 mg/dL (80-110); HEMOLYSIS < 15 (0-50); Lactate Dehydrogenase 528 U/L (313-618); Magnesium 2.1 mg/dL (1.6-2.3); Potassium 4.4 mmol/L (3.4-5.1); Sodium 137 mmol/L (137-145)
== END ==
PROVIDERS: PCP Internal Medicine; Visit Provider Obstetrics & Gynecology
DX: C57.4 Malignant neoplasm of uterine adnexa, unspecified (principal)
CPT/HCPCS: 36415; 80053; 80076; 83615; 83735; 85025

== ENCOUNTER → 2019-01-09 11:56 | Outpatient (CLI) | payer MEDICARE, BC, SELFPAY ==
[2019-01-09 12:15] LABS: Add Manual Diff / Slide Review NO; Basophils Absolute Auto 100 /uL (0-100); Basophils Percent Auto 0.9 % (0-2); Eosinophils Absolute Auto 0 /uL (0-450); Eosinophils Percent Auto 0.7 % (2-4); Hematocrit 36.7 % (36-46); Lymphocytes Absolute Auto 1300 /uL (1100-4500); Lymphocytes Percent Auto 20.7 % (25-40); Mean Corpuscular HGB Conc 32.7 % (30-36); Mean Corpuscular Hemoglobin 32.3 PG (26-34); Mean Corpuscular Volume 98.6 fL (80-100); Monocytes Absolute Auto 300 /uL (0-900); Monocytes Percent Auto 4.3 % (3-14); Neutrophils Absolute Auto 4600 /uL (1500-7000); Neutrophils Percent Auto 73.4 % (50-75); Platelet Count 176 X10^3/uL (150-400); Red Blood Cell Count 3.73 X10^6/uL (4.0-5.2); Red Cell Distribution Width 15.5 % (11.6-14.8); White Blood Cell Count 6.3 X10^3/uL (4.5-11.0)
== END ==
PROVIDERS: PCP Internal Medicine; Visit Provider Obstetrics & Gynecology
DX: C57.4 Malignant neoplasm of uterine adnexa, unspecified (principal)
CPT/HCPCS: 36415; 85025

== ENCOUNTER → 2019-02-13 12:16 | Outpatient (CLI) | payer MEDICARE, BC, SELFPAY ==
[2019-02-13 13:00] LABS: Add Manual Diff / Slide Review NO; Basophils Absolute Auto 0 /uL (0-100); Basophils Percent Auto 0.5 % (0-2); Eosinophils Absolute Auto 200 /uL (0-450); Eosinophils Percent Auto 2.7 % (2-4); Hemoglobin 11.7 g/dL (12.0-16.0); Lymphocytes Absolute Auto 1200 /uL (1100-4500); Lymphocytes Percent Auto 18.6 % (25-40); Mean Corpuscular HGB Conc 33.5 % (30-36); Mean Corpuscular Hemoglobin 32.4 PG (26-34); Mean Corpuscular Volume 96.9 fL (80-100); Monocytes Absolute Auto 300 /uL (0-900); Monocytes Percent Auto 4.9 % (3-14); Neutrophils Absolute Auto 4700 /uL (1500-7000); Neutrophils Percent Auto 73.3 % (50-75); Platelet Count 202 X10^3/uL (150-400); Red Blood Cell Count 3.61 X10^6/uL (4.0-5.2); White Blood Cell Count 6.5 X10^3/uL (4.5-11.0)
== END ==
PROVIDERS: PCP Internal Medicine; Visit Provider Obstetrics & Gynecology
DX: C57.4 Malignant neoplasm of uterine adnexa, unspecified (principal)
CPT/HCPCS: 36415; 85025

== ENCOUNTER → 2019-02-16 12:36 | Outpatient (CLI) | payer MEDICARE, BC, SELFPAY ==
--- NOTE | 2019-02-16 | DI.US.S_ITS ---
ULTRASOUND OF RIGHT BREAST: 02/16/2019 CLINICAL: 3 month follow-up nodule. Comparison is made to exams dated: 11/29/2018 ultrasound, 11/29/2018 mammogram, 07/11/2018 mammogram, 07/05/2017 mammogram, 07/03/2016 mammogram, and 07/01/2015 mammogram - [facility]. Color flow and real-time ultrasound of the right breast were performed. Ortega scale images of the real-time examination were reviewed. There is 0.8 cm x 0.2 cm x 0.5 cm oval mass with a circumscribed margin in the right breast at 9 o'clock posterior depth. This oval mass is hypoechoic. This abnormality is not significantly changed. Color flow imaging demonstrates that there is an adjacent vascularity. This mass does not definitively correlate with finding on prior outside CT dated 11/04/2018. Review of the CT images showed that the nodular density may have represented a lymph node. No other sonographic abnormalities were seen on today's evaluation. IMPRESSION: PROBABLY BENIGN The 0.8 cm x 0.2 cm x 0.5 cm oval mass in the right breast resembles a lymph node versus focus of fatty breast tissue, and remains stable. This is probably benign. Follow-up bilateral mammogram and right breast ultrasound in 6 months is recommended to document continued stability. This exam was interpreted at Station ID: [id number]. Electronically Signed By: Eldon Oropeza M.D. aty/:02/16/2019 15:26:29 letter sent: Followup Recommended Ultrasound BI-RADS: 3 Probably benign
== END ==
PROVIDERS: PCP Internal Medicine; Visit Provider Obstetrics & Gynecology
DX: R92.8 Other abnormal and inconclusive findings on diagnostic imaging of breast (principal); N63.10 Unspecified lump in the right breast, unspecified quadrant
CPT/HCPCS: 76642

== ENCOUNTER → 2019-03-06 12:08 | Outpatient (CLI) | payer MEDICARE, BC, SELFPAY ==
[2019-03-06 12:28] LABS: Add Manual Diff / Slide Review NO; Basophils Absolute Auto 100 /uL (0-100); Basophils Percent Auto 1.4 % (0-2); Eosinophils Absolute Auto 200 /uL (0-450); Eosinophils Percent Auto 2.4 % (2-4); Hematocrit 36.8 % (36-46); Hemoglobin 12.2 g/dL (12.0-16.0); Lymphocytes Absolute Auto 1400 /uL (1100-4500); Lymphocytes Percent Auto 17.4 % (25-40); Mean Corpuscular Volume 96.8 fL (80-100); Monocytes Absolute Auto 900 /uL (0-900); Monocytes Percent Auto 11.3 % (3-14); Neutrophils Absolute Auto 5500 /uL (1500-7000); Neutrophils Percent Auto 67.5 % (50-75); Platelet Count 253 X10^3/uL (150-400); Red Cell Distribution Width 15.3 % (11.6-14.8); White Blood Cell Count 8.1 X10^3/uL (4.5-11.0)
== END ==
PROVIDERS: PCP Internal Medicine; Visit Provider Obstetrics & Gynecology
DX: C57.4 Malignant neoplasm of uterine adnexa, unspecified (principal)
CPT/HCPCS: 36415; 85025

== ENCOUNTER → 2019-03-13 12:24 | Outpatient (CLI) | payer MEDICARE, BC, SELFPAY ==
[2019-03-13 13:13] LABS: Add Manual Diff / Slide Review NO; Basophils Absolute Auto 0 /uL (0-100); Basophils Percent Auto 0.6 % (0-2); Eosinophils Absolute Auto 200 /uL (0-450); Eosinophils Percent Auto 3.4 % (2-4); Hematocrit 35.1 % (36-46); Hemoglobin 11.5 g/dL (12.0-16.0); Lymphocytes Absolute Auto 1000 /uL (1100-4500); Lymphocytes Percent Auto 15.7 % (25-40); Mean Corpuscular HGB Conc 32.7 % (30-36); Mean Corpuscular Hemoglobin 31.8 PG (26-34); Mean Corpuscular Volume 97.2 fL (80-100); Monocytes Absolute Auto 400 /uL (0-900); Monocytes Percent Auto 6.4 % (3-14); Neutrophils Absolute Auto 4600 /uL (1500-7000); Neutrophils Percent Auto 73.9 % (50-75); Platelet Count 206 X10^3/uL (150-400); Red Blood Cell Count 3.61 X10^6/uL (4.0-5.2); Red Cell Distribution Width 15.5 % (11.6-14.8); White Blood Cell Count 6.2 X10^3/uL (4.5-11.0)
== END ==
PROVIDERS: PCP Internal Medicine; Visit Provider Obstetrics & Gynecology
DX: C57.4 Malignant neoplasm of uterine adnexa, unspecified (principal)
CPT/HCPCS: 36415; 85025

== ENCOUNTER → 2019-04-03 12:01 | Outpatient (CLI) | payer MEDICARE, BC, SELFPAY ==
[2019-04-03 12:29] LABS: Add Manual Diff / Slide Review NO; Basophils Absolute Auto 100 /uL (0-100); Basophils Percent Auto 1.8 % (0-2); Eosinophils Absolute Auto 100 /uL (0-450); Eosinophils Percent Auto 1.2 % (2-4); Hematocrit 36.7 % (36-46); Lymphocytes Absolute Auto 1600 /uL (1100-4500); Lymphocytes Percent Auto 19.9 % (25-40); Mean Corpuscular HGB Conc 32.7 % (30-36); Mean Corpuscular Hemoglobin 31.7 PG (26-34); Monocytes Absolute Auto 900 /uL (0-900); Monocytes Percent Auto 11.8 % (3-14); Neutrophils Absolute Auto 5200 /uL (1500-7000); Neutrophils Percent Auto 65.3 % (50-75); Platelet Count 232 X10^3/uL (150-400); Red Blood Cell Count 3.79 X10^6/uL (4.0-5.2)
[2019-04-03 12:39] LABS: Albumin 4.3 g/dL (3.5-5.0); Blood Urea Nitrogen 28 mg/dL (7-17); Calcium 9.6 mg/dL (8.4-10.2); Carbon Dioxide 28 mmol/L (22-32); Chloride 101 mmol/L (98-107); Estimated Glomerular Filt Rate 53.8 mL/min (>60); Glucose 100 mg/dL (80-110); HEMOLYSIS < 15 (0-50); Lactate Dehydrogenase 531 U/L (313-618); Magnesium 1.9 mg/dL (1.6-2.3); Phosphorous 4.1 mg/dL (2.8-4.1); Potassium 4.6 mmol/L (3.4-5.1); Sodium 138 mmol/L (137-145)
== END ==
PROVIDERS: PCP Internal Medicine; Visit Provider Obstetrics & Gynecology
DX: C57.4 Malignant neoplasm of uterine adnexa, unspecified (principal)
CPT/HCPCS: 36415; 80069; 83615; 83735; 85025

== ENCOUNTER → 2019-04-10 12:17 | Outpatient (CLI) | payer MEDICARE, BC, SELFPAY ==
[2019-04-10 13:04] LABS: Add Manual Diff / Slide Review NO; Basophils Absolute Auto 0 /uL (0-100); Basophils Percent Auto 0.8 % (0-2); Eosinophils Absolute Auto 100 /uL (0-450); Eosinophils Percent Auto 1.8 % (2-4); Hematocrit 34.9 % (36-46); Hemoglobin 11.6 g/dL (12.0-16.0); Lymphocytes Absolute Auto 1000 /uL (1100-4500); Mean Corpuscular HGB Conc 33.3 % (30-36); Mean Corpuscular Hemoglobin 32.1 PG (26-34); Mean Corpuscular Volume 96.4 fL (80-100); Monocytes Absolute Auto 200 /uL (0-900); Monocytes Percent Auto 4.1 % (3-14); Neutrophils Absolute Auto 4300 /uL (1500-7000); Neutrophils Percent Auto 75.3 % (50-75); Platelet Count 161 X10^3/uL (150-400); Red Blood Cell Count 3.62 X10^6/uL (4.0-5.2); Red Cell Distribution Width 16.3 % (11.6-14.8); White Blood Cell Count 5.7 X10^3/uL (4.5-11.0)
== END ==
PROVIDERS: PCP Internal Medicine; Visit Provider Obstetrics & Gynecology
DX: C57.4 Malignant neoplasm of uterine adnexa, unspecified (principal)
CPT/HCPCS: 36415; 85025

== ENCOUNTER → 2019-05-01 12:25 | Outpatient (CLI) | payer MEDICARE, BC, SELFPAY ==
[2019-05-01 12:47] LABS: Add Manual Diff / Slide Review NO; Basophils Absolute Auto 100 /uL (0-100); Basophils Percent Auto 1.6 % (0-2); Eosinophils Absolute Auto 100 /uL (0-450); Eosinophils Percent Auto 1.2 % (2-4); Hematocrit 37.2 % (36-46); Hemoglobin 12.2 g/dL (12.0-16.0); Lymphocytes Absolute Auto 1800 /uL (1100-4500); Lymphocytes Percent Auto 28.1 % (25-40); Mean Corpuscular HGB Conc 32.8 % (30-36); Mean Corpuscular Hemoglobin 31.9 PG (26-34); Mean Corpuscular Volume 97.4 fL (80-100); Monocytes Absolute Auto 800 /uL (0-900); Monocytes Percent Auto 12.1 % (3-14); Neutrophils Absolute Auto 3700 /uL (1500-7000); Platelet Count 211 X10^3/uL (150-400); Red Blood Cell Count 3.82 X10^6/uL (4.0-5.2); Red Cell Distribution Width 16.8 % (11.6-14.8); White Blood Cell Count 6.5 X10^3/uL (4.5-11.0)
[2019-05-01 12:58] LABS: Alanine Aminotransferase 22 IU/L (9-52); Albumin 4.5 g/dL (3.5-5.0); Albumin Globulin Ratio 1.3 (1.0-2.8); Alkaline Phosphatase 89 U/L (38-126); Aspartate Aminotransferase 45 IU/L (14-36); BUN Creatinine Ratio 22.2 (6-22); Bilirubin Total 0.6 mg/dL (0.2-1.3); Bilirubin Unconjugated 0.3 mg/dL (0.0-1.1); Blood Urea Nitrogen 20 mg/dL (7-17); Calcium 9.5 mg/dL (8.4-10.2); Carbon Dioxide 24 mmol/L (22-32); Chloride 103 mmol/L (98-107); Estimated Glomerular Filt Rate > 60.0 mL/min (>60); Globulin 3.5 g/dL (1.7-4.1); Glucose 94 mg/dL (80-110); HEMOLYSIS 21 (0-50); Lactate Dehydrogenase 580 U/L (313-618); Magnesium 1.8 mg/dL (1.6-2.3); Potassium 3.8 mmol/L (3.4-5.1); Sodium 139 mmol/L (137-145)
== END ==
PROVIDERS: PCP Internal Medicine; Visit Provider Obstetrics & Gynecology
DX: C57.02 Malignant neoplasm of left fallopian tube (principal); C57.4 Malignant neoplasm of uterine adnexa, unspecified
CPT/HCPCS: 36415; 80053; 80076; 83615; 83735; 85025

== ENCOUNTER → 2019-05-22 10:24 | Outpatient (CLI) | payer MEDICARE, BC, SELFPAY ==
[2019-05-22 10:51] LABS: Add Manual Diff / Slide Review NO; Basophils Absolute Auto 100 /uL (0-100); Basophils Percent Auto 1.8 % (0-2); Eosinophils Absolute Auto 300 /uL (0-450); Eosinophils Percent Auto 4.7 % (2-4); Hemoglobin 12.7 g/dL (12.0-16.0); Lymphocytes Absolute Auto 1100 /uL (1100-4500); Mean Corpuscular HGB Conc 33.5 % (30-36); Mean Corpuscular Hemoglobin 32.4 PG (26-34); Mean Corpuscular Volume 96.8 fL (80-100); Monocytes Absolute Auto 600 /uL (0-900); Monocytes Percent Auto 10.2 % (3-14); Neutrophils Absolute Auto 4000 /uL (1500-7000); Neutrophils Percent Auto 65.3 % (50-75); Platelet Count 218 X10^3/uL (150-400); Red Blood Cell Count 3.92 X10^6/uL (4.0-5.2); Red Cell Distribution Width 16.1 % (11.6-14.8); White Blood Cell Count 6.1 X10^3/uL (4.5-11.0)
[2019-05-22 11:11] LABS: Alanine Aminotransferase 18 IU/L (9-52); Albumin 4.3 g/dL (3.5-5.0); Albumin Globulin Ratio 1.3 (1.0-2.8); Alkaline Phosphatase 87 U/L (38-126); Aspartate Aminotransferase 47 IU/L (14-36); Bilirubin Total 0.6 mg/dL (0.2-1.3); Bilirubin Unconjugated 0.4 mg/dL (0.0-1.1); Blood Urea Nitrogen 25 mg/dL (7-17); Calcium 9.6 mg/dL (8.4-10.2); Carbon Dioxide 27 mmol/L (22-32); Chloride 101 mmol/L (98-107); Estimated Glomerular Filt Rate 53.8 mL/min (>60); Globulin 3.4 g/dL (1.7-4.1); Glucose 96 mg/dL (80-110); HEMOLYSIS < 15 (0-50); Potassium 4.5 mmol/L (3.4-5.1); Sodium 140 mmol/L (137-145); Total Protein 7.7 g/dL (6.3-8.2)
[2019-05-22 16:21] LABS: Lactate Dehydrogenase 532 U/L (313-618)
== END ==
PROVIDERS: Family Provider Internal Medicine; PCP Internal Medicine; Visit Provider Obstetrics & Gynecology
DX: Z79.899 Other long term (current) drug therapy (principal); C57.4 Malignant neoplasm of uterine adnexa, unspecified; C57.02 Malignant neoplasm of left fallopian tube
CPT/HCPCS: 36415; 80053; 80076; 83615; 83735; 85025

== ENCOUNTER → 2019-06-12 12:38 | Outpatient (CLI) | payer MEDICARE, BC, SELFPAY ==
[2019-06-12 13:30] LABS: Add Manual Diff / Slide Review NO; Basophils Absolute Auto 0 /uL (0-100); Basophils Percent Auto 0.5 % (0-2); Eosinophils Absolute Auto 400 /uL (0-450); Hematocrit 39.1 % (36-46); Hemoglobin 13.1 g/dL (12.0-16.0); Lymphocytes Absolute Auto 1400 /uL (1100-4500); Lymphocytes Percent Auto 25.3 % (25-40); Mean Corpuscular HGB Conc 33.5 % (30-36); Mean Corpuscular Hemoglobin 32.3 PG (26-34); Mean Corpuscular Volume 96.3 fL (80-100); Monocytes Absolute Auto 600 /uL (0-900); Monocytes Percent Auto 9.9 % (3-14); Neutrophils Absolute Auto 3100 /uL (1500-7000); Neutrophils Percent Auto 56.3 % (50-75); Red Blood Cell Count 4.06 X10^6/uL (4.0-5.2); Red Cell Distribution Width 14.4 % (11.6-14.8); White Blood Cell Count 5.6 X10^3/uL (4.5-11.0)
[2019-06-12 13:41] LABS: Alanine Aminotransferase 23 IU/L (9-52); Albumin 4.4 g/dL (3.5-5.0); Albumin Globulin Ratio 1.3 (1.0-2.8); Alkaline Phosphatase 91 U/L (38-126); Aspartate Aminotransferase 40 IU/L (14-36); Bilirubin Total 0.6 mg/dL (0.2-1.3); Bilirubin Unconjugated 0.5 mg/dL (0.0-1.1); Blood Urea Nitrogen 24 mg/dL (7-17); Calcium 9.5 mg/dL (8.4-10.2); Carbon Dioxide 27 mmol/L (22-32); Chloride 101 mmol/L (98-107); Estimated Glomerular Filt Rate 53.8 mL/min (>60); Globulin 3.4 g/dL (1.7-4.1); Glucose 99 mg/dL (80-110); HEMOLYSIS < 15 (0-50); Lactate Dehydrogenase 504 U/L (313-618); Potassium 4.2 mmol/L (3.4-5.1); Sodium 138 mmol/L (137-145); Total Protein 7.8 g/dL (6.3-8.2)
[2019-06-12 14:03] LABS: Platelet Count 197 X10^3/uL (150-400)
== END ==
PROVIDERS: Family Provider Internal Medicine; PCP Obstetrics & Gynecology; Visit Provider Obstetrics & Gynecology
DX: C57.4 Malignant neoplasm of uterine adnexa, unspecified (principal); Z79.899 Other long term (current) drug therapy; C57.02 Malignant neoplasm of left fallopian tube
CPT/HCPCS: 36415; 80053; 80076; 83615; 83735; 85025

== ENCOUNTER → 2019-07-03 13:27 | Outpatient (CLI) | payer MEDICARE, BC, SELFPAY ==
[2019-07-03 14:14] LABS: Add Manual Diff / Slide Review NO; Basophils Absolute Auto 100 /uL (0-100); Basophils Percent Auto 0.8 % (0-2); Eosinophils Absolute Auto 1600 /uL (0-450); Eosinophils Percent Auto 19.7 % (2-4); Hematocrit 39.4 % (36-46); Hemoglobin 13.2 g/dL (12.0-16.0); Lymphocytes Absolute Auto 1700 /uL (1100-4500); Lymphocytes Percent Auto 20.8 % (25-40); Mean Corpuscular HGB Conc 33.4 % (30-36); Mean Corpuscular Hemoglobin 32.2 PG (26-34); Mean Corpuscular Volume 96.3 fL (80-100); Monocytes Absolute Auto 700 /uL (0-900); Neutrophils Absolute Auto 4100 /uL (1500-7000); Neutrophils Percent Auto 49.7 % (50-75); Platelet Count 197 X10^3/uL (150-400); Red Blood Cell Count 4.09 X10^6/uL (4.0-5.2); White Blood Cell Count 8.2 X10^3/uL (4.5-11.0)
[2019-07-03 15:36] LABS: Alanine Aminotransferase 28 IU/L (9-52); Albumin 4.4 g/dL (3.5-5.0); Albumin Globulin Ratio 1.3 (1.0-2.8); Alkaline Phosphatase 91 U/L (38-126); Aspartate Aminotransferase 49 IU/L (14-36); Bilirubin Total 0.8 mg/dL (0.2-1.3); Bilirubin Unconjugated 0.4 mg/dL (0.0-1.1); Blood Urea Nitrogen 22 mg/dL (7-17); Calcium 9.7 mg/dL (8.4-10.2); Carbon Dioxide 29 mmol/L (22-32); Chloride 101 mmol/L (98-107); Estimated Glomerular Filt Rate 53.8 mL/min (>60); Globulin 3.5 g/dL (1.7-4.1); Glucose 96 mg/dL (80-110); HEMOLYSIS < 15 (0-50); Magnesium 1.9 mg/dL (1.6-2.3); Potassium 4.5 mmol/L (3.4-5.1); Sodium 138 mmol/L (137-145); Total Protein 7.9 g/dL (6.3-8.2)
== END ==
PROVIDERS: PCP Obstetrics & Gynecology; Visit Provider Obstetrics & Gynecology
DX: Z79.899 Other long term (current) drug therapy (principal); C57.4 Malignant neoplasm of uterine adnexa, unspecified; C57.02 Malignant neoplasm of left fallopian tube
CPT/HCPCS: 36415; 80053; 80076; 83735; 85025

== ENCOUNTER → 2019-07-24 12:43 | Outpatient (CLI) | payer MEDICARE, BC, SELFPAY ==
[2019-07-24 13:02] LABS: Add Manual Diff / Slide Review NO; Basophils Absolute Auto 100 /uL (0-100); Basophils Percent Auto 1.1 % (0-2); Eosinophils Absolute Auto 300 /uL (0-450); Eosinophils Percent Auto 5.4 % (2-4); Hematocrit 40.8 % (36-46); Hemoglobin 13.7 g/dL (12.0-16.0); Lymphocytes Absolute Auto 1500 /uL (1100-4500); Lymphocytes Percent Auto 25.6 % (25-40); Mean Corpuscular HGB Conc 33.6 % (30-36); Mean Corpuscular Hemoglobin 32.1 PG (26-34); Mean Corpuscular Volume 95.6 fL (80-100); Monocytes Absolute Auto 700 /uL (0-900); Monocytes Percent Auto 13.1 % (3-14); Neutrophils Absolute Auto 3100 /uL (1500-7000); Neutrophils Percent Auto 54.8 % (50-75); Platelet Count 195 X10^3/uL (150-400); Red Blood Cell Count 4.27 X10^6/uL (4.0-5.2); Red Cell Distribution Width 13.9 % (11.6-14.8); White Blood Cell Count 5.7 X10^3/uL (4.5-11.0)
[2019-07-24 13:21] LABS: Alanine Aminotransferase 21 IU/L (<35); Albumin 4.5 g/dL (3.5-5.0); Albumin Globulin Ratio 1.5 (1.0-2.8); Alkaline Phosphatase 92 U/L (38-126); Aspartate Aminotransferase 43 IU/L (14-36); Bilirubin Total 0.7 mg/dL (0.2-1.3); Blood Urea Nitrogen 23 mg/dL (7-17); Calcium 9.5 mg/dL (8.4-10.2); Carbon Dioxide 30 mmol/L (22-32); Chloride 100 mmol/L (98-107); Estimated Glomerular Filt Rate 53.8 mL/min (>60); Globulin 3.1 g/dL (1.7-4.1); Glucose 95 mg/dL (80-110); HEMOLYSIS < 15 (0-50); Magnesium 2.1 mg/dL (1.6-2.3); Potassium 4.6 mmol/L (3.4-5.1); Sodium 139 mmol/L (137-145); Total Protein 7.6 g/dL (6.3-8.2)
== END ==
PROVIDERS: PCP Obstetrics & Gynecology; Visit Provider Physician Assistant Medical
DX: Z79.899 Other long term (current) drug therapy (principal); Z51.11 Encounter for antineoplastic chemotherapy
CPT/HCPCS: 36415; 80053; 83735; 85025

== ENCOUNTER → 2019-08-14 13:40 | Outpatient (CLI) | payer MEDICARE, BC, SELFPAY ==
[2019-08-14 13:59] LABS: Add Manual Diff / Slide Review NO; Basophils Absolute Auto 100 /uL (0-100); Basophils Percent Auto 1.5 % (0-2); Eosinophils Absolute Auto 300 /uL (0-450); Eosinophils Percent Auto 4.4 % (2-4); Hematocrit 40.7 % (36-46); Hemoglobin 13.6 g/dL (12.0-16.0); Lymphocytes Absolute Auto 1700 /uL (1100-4500); Lymphocytes Percent Auto 23.5 % (25-40); Mean Corpuscular HGB Conc 33.5 % (30-36); Mean Corpuscular Hemoglobin 31.6 PG (26-34); Mean Corpuscular Volume 94.4 fL (80-100); Monocytes Absolute Auto 900 /uL (0-900); Monocytes Percent Auto 12.7 % (3-14); Neutrophils Absolute Auto 4100 /uL (1500-7000); Neutrophils Percent Auto 57.9 % (50-75); Platelet Count 206 X10^3/uL (150-400); Red Blood Cell Count 4.32 X10^6/uL (4.0-5.2); Red Cell Distribution Width 13.8 % (11.6-14.8); White Blood Cell Count 7.1 X10^3/uL (4.5-11.0)
== END ==
PROVIDERS: PCP Internal Medicine; Visit Provider Physician Assistant Medical
DX: C57.4 Malignant neoplasm of uterine adnexa, unspecified (principal)
CPT/HCPCS: 36415; 85025

== ENCOUNTER → 2019-09-04 13:35 | Outpatient (CLI) | payer MEDICARE, BC, SELFPAY ==
[2019-09-04 13:58] LABS: Add Manual Diff / Slide Review NO; Basophils Absolute Auto 100 /uL (0-100); Basophils Percent Auto 1.3 % (0-2); Eosinophils Absolute Auto 200 /uL (0-450); Eosinophils Percent Auto 3.2 % (2-4); Hematocrit 38.5 % (36-46); Hemoglobin 12.9 g/dL (12.0-16.0); Lymphocytes Absolute Auto 1600 /uL (1100-4500); Lymphocytes Percent Auto 24.5 % (25-40); Mean Corpuscular HGB Conc 33.4 % (30-36); Mean Corpuscular Hemoglobin 31.8 PG (26-34); Mean Corpuscular Volume 95.2 fL (80-100); Monocytes Absolute Auto 700 /uL (0-900); Neutrophils Absolute Auto 4000 /uL (1500-7000); Platelet Count 183 X10^3/uL (150-400); Red Blood Cell Count 4.04 X10^6/uL (4.0-5.2); White Blood Cell Count 6.7 X10^3/uL (4.5-11.0)
[2019-09-04 14:08] LABS: Alanine Aminotransferase 21 IU/L (<35); Albumin 4.2 g/dL (3.5-5.0); Albumin Globulin Ratio 1.4 (1.0-2.8); Alkaline Phosphatase 86 U/L (38-126); Aspartate Aminotransferase 41 IU/L (14-36); BUN Creatinine Ratio 23.3 (6-22); Bilirubin Total 0.6 mg/dL (0.2-1.3); Blood Urea Nitrogen 21 mg/dL (7-17); Calcium 9.5 mg/dL (8.4-10.2); Carbon Dioxide 26 mmol/L (22-32); Chloride 104 mmol/L (98-107); Estimated Glomerular Filt Rate > 60.0 mL/min (>60); Globulin 2.9 g/dL (1.7-4.1); Glucose 91 mg/dL (80-110); HEMOLYSIS < 15 (0-50); Potassium 4.3 mmol/L (3.4-5.1); Sodium 140 mmol/L (137-145); Total Protein 7.1 g/dL (6.3-8.2)
== END ==
PROVIDERS: PCP Internal Medicine; Visit Provider Physician Assistant Medical
DX: C57.4 Malignant neoplasm of uterine adnexa, unspecified (principal)
CPT/HCPCS: 36415; 80053; 83735; 85025

== ENCOUNTER → 2019-09-25 12:12 | Outpatient (CLI) | payer MEDICARE, BC, SELFPAY ==
[2019-09-25 13:16] LABS: Add Manual Diff / Slide Review NO; Basophils Absolute Auto 100 /uL (0-100); Basophils Percent Auto 0.9 % (0-2); Eosinophils Absolute Auto 200 /uL (0-450); Eosinophils Percent Auto 2.7 % (2-4); Hematocrit 38.2 % (36-46); Hemoglobin 12.9 g/dL (12.0-16.0); Lymphocytes Absolute Auto 1200 /uL (1100-4500); Lymphocytes Percent Auto 20.5 % (25-40); Mean Corpuscular HGB Conc 33.7 % (30-36); Mean Corpuscular Hemoglobin 31.7 PG (26-34); Monocytes Absolute Auto 600 /uL (0-900); Monocytes Percent Auto 10.1 % (3-14); Neutrophils Absolute Auto 3900 /uL (1500-7000); Neutrophils Percent Auto 65.8 % (50-75); Platelet Count 184 X10^3/uL (150-400); Red Blood Cell Count 4.07 X10^6/uL (4.0-5.2); Red Cell Distribution Width 14.3 % (11.6-14.8)
[2019-09-25 13:36] LABS: Alanine Aminotransferase 27 IU/L (<35); Albumin 4.2 g/dL (3.5-5.0); Albumin Globulin Ratio 1.4 (1.0-2.8); Alkaline Phosphatase 93 U/L (38-126); Aspartate Aminotransferase 36 IU/L (14-36); Bilirubin Total 0.6 mg/dL (0.2-1.3); Blood Urea Nitrogen 25 mg/dL (7-17); Calcium 9.5 mg/dL (8.4-10.2); Carbon Dioxide 23 mmol/L (22-32); Chloride 107 mmol/L (98-107); Estimated Glomerular Filt Rate 53.8 mL/min (>60); Globulin 3.1 g/dL (1.7-4.1); Glucose 101 mg/dL (80-110); HEMOLYSIS < 15 (0-50); Magnesium 2.1 mg/dL (1.6-2.3); Potassium 5.5 mmol/L (3.4-5.1); Sodium 138 mmol/L (137-145); Total Protein 7.3 g/dL (6.3-8.2)
== END ==
PROVIDERS: PCP Internal Medicine; Visit Provider Obstetrics & Gynecology
DX: C57.4 Malignant neoplasm of uterine adnexa, unspecified (principal)
CPT/HCPCS: 36415; 80053; 83735; 85025

== ENCOUNTER → 2019-09-28 13:28 | Outpatient (CLI) | payer MEDICARE, BC, SELFPAY ==
--- NOTE | 2019-09-28 | DI.US.S_ITS ---
PROCEDURE: US PERIPH VENOUS LOW EXTREM LT INDICATIONS: LOCALIZED SWELLING, MASS AND LUMP, LEFT LOWER LIMB TECHNIQUE: Real-time imaging, as well as color and pulse Doppler interrogation, were performed of the lower extremity deep veins from the inguinal ligament to the popliteal fossa. COMPARISON: None. FINDINGS: The common femoral, femoral and popliteal veins are normally compressible, and free of intraluminal thrombus. Color and pulse Doppler demonstrate normal phasic intraluminal flow. There is normal augmentation response to distal compression maneuver. Extensive nonspecific soft tissue edema noted throughout the left calf and ankle. IMPRESSION: No evidence of a vein thrombosis involving the left lower extremity. Dictated by: Sandy Cabrera MD, PhD on 09/28/2019 at 14:15 Approved by: Sandy Cabrera MD, PhD on 09/28/2019 at 14:16
[2019-09-28 14:35] LABS: Blood Urea Nitrogen 24 mg/dL (7-17); Carbon Dioxide 22 mmol/L (22-32); Chloride 106 mmol/L (98-107); Estimated Glomerular Filt Rate 53.8 mL/min (>60); Glucose 109 mg/dL (80-110); HEMOLYSIS < 15 (0-50); Potassium 4.9 mmol/L (3.4-5.1); Sodium 137 mmol/L (137-145)
== END ==
PROVIDERS: PCP Internal Medicine; Visit Provider Obstetrics & Gynecology
DX: R22.42 Localized swelling, mass and lump, left lower limb (principal); E87.5 Hyperkalemia
CPT/HCPCS: 36415; 80048; 93971

== ENCOUNTER → 2019-10-16 12:07 | Outpatient (CLI) | payer MEDICARE, BC, SELFPAY ==
[2019-10-16 12:40] LABS: Add Manual Diff / Slide Review NO; Basophils Absolute Auto 100 /uL (0-100); Basophils Percent Auto 1.6 % (0-2); Eosinophils Absolute Auto 100 /uL (0-450); Eosinophils Percent Auto 1.9 % (2-4); Hematocrit 35.4 % (36-46); Hemoglobin 11.9 g/dL (12.0-16.0); Lymphocytes Absolute Auto 1200 /uL (1100-4500); Mean Corpuscular HGB Conc 33.7 % (30-36); Monocytes Absolute Auto 600 /uL (0-900); Monocytes Percent Auto 10.4 % (3-14); Neutrophils Absolute Auto 4100 /uL (1500-7000); Neutrophils Percent Auto 66.1 % (50-75); Platelet Count 190 X10^3/uL (150-400); Red Blood Cell Count 3.72 X10^6/uL (4.0-5.2); Red Cell Distribution Width 14.1 % (11.6-14.8); White Blood Cell Count 6.1 X10^3/uL (4.5-11.0)
[2019-10-16 12:57] LABS: Alanine Aminotransferase 16 IU/L (<35); Albumin 3.9 g/dL (3.5-5.0); Albumin Globulin Ratio 1.3 (1.0-2.8); Alkaline Phosphatase 75 U/L (38-126); Aspartate Aminotransferase 33 IU/L (14-36); BUN Creatinine Ratio 30.7 (6-22); Bilirubin Total 0.5 mg/dL (0.2-1.3); Bilirubin Unconjugated 0.5 mg/dL (0.0-1.1); Blood Urea Nitrogen 46 mg/dL (7-17); Calcium 9.2 mg/dL (8.4-10.2); Carbon Dioxide 19 mmol/L (22-32); Chloride 107 mmol/L (98-107); Estimated Glomerular Filt Rate 33.7 mL/min (>60); Globulin 3.1 g/dL (1.7-4.1); Glucose 105 mg/dL (80-110); Phosphorous 5.4 mg/dL (2.8-4.1); Sodium 135 mmol/L (137-145)
[2019-10-16 13:08] LABS: HEMOLYSIS 16 (0-50)
[2019-10-16 13:11] LABS: Potassium 6.7 mmol/L (3.4-5.1)
== END ==
PROVIDERS: PCP Internal Medicine; Referring Provider Physician Assistant Medical; Visit Provider Physician Assistant Medical
DX: C57.4 Malignant neoplasm of uterine adnexa, unspecified (principal)
CPT/HCPCS: 36415; 80069; 80076; 85025

== ENCOUNTER 2019-10-16 14:43 | Emergency (ER) | payer MEDICARE, BC, SELFPAY ==
[2019-10-16 15:13] VITALS: BP 204/92; PULSE 69; RESP 18; TEMP 36.8; O2SAT 97
[2019-10-16 15:42] LABS: HEMOLYSIS < 15 (0-50)
[2019-10-16 15:44] LABS: Potassium 5.9 mmol/L (3.4-5.1)
[2019-10-16 16:19] VITALS: BP 190/80; PULSE 60; RESP 15; O2SAT 100
[2019-10-16 16:26] LABS: Magnesium 2.6 mg/dL (1.6-2.3)
--- NOTE | 2019-10-16 16:36 | ED.RECABL ---
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 Patient has a history of attest that ache ovarian cancer and has been receiving chemo therapy with Avastatin every 3 weeks at for last 2 years which has been very effective for her ovarian cancer. Prior to this, patient gets blood test done routinely and she received a phone call today to going to ED for re-evaluation on potassium level duty was elevated up to 6.7. Patient also reports she has been struggling for high blood pressure which is 1 of the side effects from Avastatin. She has been seeing Dr. Shea, network infrastructure architect and her PCP, Dr. Gudino with elevated blood pressure and she is currently taking 6 different blood pressure medications to control this. She has follow-up appointment with Dr. Shea on 10/30/19 and is currently waiting for echocardiogram. Patient denies chest pain, breathing difficulty, dizziness, muscle aches or weakness at this time but reports occasional mild dizziness and short of breath. Patient denies trouble with urination. Related Data Home Medications Medication Instructions Recorded Confirmed prochlorperazine maleate 10 mg 10 mg PO Q6-8H PRN 01/07/18 10/12/19 tablet bevacizumab 25 mg/mL intravenous 5 mg IV ONCE ml 08/31/19 10/12/19 solution minoxidil 10 mg tablet 10 mg PO DAILY 10/12/19 10/12/19 spironolactone 50 mg PO DAILY 10/16/19 Previous Rx's Medication Instructions Recorded metoprolol succinate 100 mg See Rx Instructions .ROUTE 06/14/19 tablet,extended release 24 hr .COMPLEX #90 tablet felodipine 10 mg tablet,extended 10 mg PO DAILY #30 tab 08/31/19 release 24 hr clonidine HCl 0.3 mg tablet 0.3 mg PO BID #60 tab 09/04/19 lisinopril 40 mg tablet 40 mg PO BID #60 tab 09/08/19 Allergies Allergy/AdvReac Type Severity Reaction Status Date / Time azithromycin [AZITHROMYCIN] Allergy Unknown HIVES Verified 10/12/19 16:02 latex [LATEX] Allergy Unknown RASH Verified 10/12/19 16:02 Penicillins [PENICILLINS] Allergy Unknown HIVES/SWELL Verified 10/12/19 16:02 ING hydralazine AdvReac Severe hives Verified 10/12/19 16:02 hydrochlorothiazide AdvReac Intermediate FATIGUE/LIG Verified 10/12/19 16:02 [From DYAZIDE] HTHEADEDNES S triamterene [From DYAZIDE] AdvReac Intermediate FATIGUE/LIG Verified 10/12/19 16:02 HTHEADEDNES S HENRY Inhibitors AdvReac Unknown COUGH Verified 10/12/19 16:02 [HENRY INHIBITORS] amlodipine [AMLODIPINE] AdvReac Unknown EDEMA Verified 10/12/19 16:02 nifedipine [NIFEDIPINE] AdvReac Unknown EDEMA Verified 10/12/19 16:02 Sulfa (Sulfonamide AdvReac Unknown EMESIS Verified 10/12/19 16:02 Antibiotics) [SULFA (SULFONAMIDE ANTIBIOTICS)] Review of Systems <EVA Sargent - Last Filed: 10/16/19 21:27> Review of Systems Narrative: General: Denies fever, chills, fatigue, malaise, sweats. HEENT: Denies sinus pain, ear pain, sore throat, difficulty swallowing, dizziness. Respiratory: Denies dyspnea, cough, wheezing, hemoptysis, sputum. Cardiovascular: Denies chest pain, palpitations, orthopnea, edema. Gastrointestinal: Denies nausea, vomiting, abdominal pain, diarrhea, constipation, melena. : Denies dysuria, frequency, incontinence, hematuria, urinary retention. Musculoskeletal: Denies weakness, joint pain or bony pain. Skin: Denies rash, skin lesions, or other. Neurologic: Denies weakness, headache, numbness, change in speech, confusion, seizures, incoordination. Psychiatric: No concerning psychosocial issues. 12-point review of systems is negative except for those stated above. Patient History <EVA Sargent - Last Filed: 10/16/19 21:27> Medical History Essential hypertension (Chronic) Fallopian tube carcinoma (Chronic) Pulmonary nodule (Chronic) Surgical History History of partial pancreatectomy (Inactive) S/P total abdominal hysterectomy and bilateral salpingo-oophorectomy (Inactive ~2013) Status post exploratory laparotomy (Inactive) Status post splenectomy (Inactive) Social History Smoking Status: Never smoker Smoking Status: Never smoker Exam <EVA Sargent - Last Filed: 10/16/19 21:27> Narrative Exam Narrative: GEN: Alert, oriented x 3, well appearing and nourished, and in no acute distress. Head: Normal cephalic, atraumatic. No scalp or temporal tenderness, palpable mass or rash. EYES: Pupils are equal, round, and reactive to light and accommodation. Extraocular muscles are intact bilaterally. There is no subconjunctival hemorrhage, exudate and sclera non-icteric. ENT: Bilateral auditory canals and tympanic membranes clear. Hearing grossly intact. Nose without bleeding, purulent discharge or deviation. Facial sinuses nontender to palpate. Mucous membrane moist, no mucosal lesion. Throat without erythema, tonsillar hypertrophy or exudate. Uvula in midline, airway patent. Neck: Trachea in midline. No JVD, non-tender without lymphadenopathy. No masses or thyroid megaly. Supple, non-tender and no meningeal signs. CARDIAC: Normal regular rate and rhythm without murmurs, gallops, or rubs. No chest wall tenderness. No peripheral edema, cyanosis or pallor. Capillary refill is less than 2 seconds. RESPIRATORY: Lungs are clear to auscultate bilaterally. No cough, wheezes, rales, or rhonchi. No stridor, respiratory distress, increase work of breathing, or accessary muscle used. ABD: Abdomen soft, nontender and non-distended. No guarding or rebound tenderness to palpate. Bowel sounds are normal in all 4 quadrants. There is no palpable masses or organomegaly. EXT: Full painless ROM of all extremities with no loss of sensation, strength, effusion or edema. SKIN: Warm, dry, normal color for patient. No erythema, lesions or rash over visible areas. BACK: Nontender without deformity or crepitance. No flank tenderness. NEUROLOGICAL: Alert and oriented to place, time and person. Sensation and motor function intact bilaterally. No facial droops, dysphasia. PSYCHIATRIC: Good judgement and reason, without hallucinations, abnormal affect or abnormal behaviors during the examination. Initial Vital Signs Initial Vital Signs: Vital Signs Temperature 98.2 F 10/16/19 15:13 Pulse Rate 69 10/16/19 15:13 Respiratory Rate 18 10/16/19 15:13 Blood Pressure 204/92 H 10/16/19 15:13 Pulse Oximetry 97 10/16/19 15:13 <Naldo Alberto DO - Last Filed: 10/17/19 06:55> Initial Vital Signs Initial Vital Signs: Vital Signs Temperature 98.2 F 10/16/19 15:13 Pulse Rate 69 10/16/19 15:13 Respiratory Rate 18 10/16/19 15:13 Blood Pressure 204/92 H 10/16/19 15:13 Pulse Oximetry 97 10/16/19 15:13 Scores <EVA Sargent - Last Filed: 10/16/19 21:27> GCS Milligan coma scale eye opening: Spontaneous Milligan coma scale verbal response: Orientated Tyrone coma scale motor response: Obey commands Milligan coma scale total score: 15 Course <EVA Sargent - Last Filed: 10/16/19 21:27> Orders Ordered: Discontinued Medications Furosemide (Lasix) 20 mg IV NOW ONE Stop: 10/16/19 17:23 Last Admin: 10/16/19 18:16 Dose: 20 mg Documented by: NIMISHA Sodium Chloride (Normal Saline 0.9%) 500 mls @ 1,000 mls/hr IV BOLUS ONE Stop: 10/16/19 16:52 Last Infusion: 10/16/19 17:58 Dose: 0 mls/hr Documented by: Admin: 10/16/19 17:10 Dose: 1,000 mls/hr Documented by: WHITLEY Sodium Polystyrene Sulfonate (Kayexalate) 30 gm PO NOW ONE Stop: 10/16/19 17:23 Last Admin: 10/16/19 18:16 Dose: 30 gm Documented by: MARIEONER Vital Signs Vital signs: Vital Signs - 8 hr 10/16/19 15:13 10/16/19 16:19 02/10/20 18:41 Temperature 98.2 F Pulse Rate 69 60 69 Respiratory Rate 18 15 15 Blood Pressure 204/92 H Blood Pressure [Left Arm] 190/80 H 182/79 H Pulse Oximetry 97 100 99 <Naldo Alberto DO - Last Filed: 10/17/19 06:55> Orders Ordered: Discontinued Medications Furosemide (Lasix) 20 mg IV NOW ONE Stop: 10/16/19 17:23 Last Admin: 10/16/19 18:16 Dose: 20 mg Documented by: BTONER Sodium Chloride (Normal Saline 0.9%) 500 mls @ 1,000 mls/hr IV BOLUS ONE Stop: 10/16/19 16:52 Last Infusion: 10/16/19 17:58 Dose: 0 mls/hr Documented by: Admin: 10/16/19 17:10 Dose: 1,000 mls/hr Documented by: WHITLEY Sodium Polystyrene Sulfonate (Kayexalate) 30 gm PO NOW ONE Stop: 10/16/19 17:23 Last Admin: 10/16/19 18:16 Dose: 30 gm Documented by: BTONER Vital Signs Vital signs: Vital Signs - 8 hr 10/16/19 15:13 10/16/19 16:19 10/16/19 18:41 Temperature 98.2 F Pulse Rate 69 60 69 Respiratory Rate 18 15 15 Blood Pressure 204/92 H Blood Pressure [Left Arm] 190/80 H 182/79 H Pulse Oximetry 97 100 99 MDM - Recheck/Abnormal Lab/Rx <EVA Sargent - Last Filed: 10/16/19 21:27> Differential Diagnosis Differential diagnosis: Likely other (Hyperkalemia, electrolyte abnormality) Medical Records Attestation: I reviewed the patient's medical records. Lab Data Attestation: I reviewed the patient's lab results. Result diagrams: 10/16/19 15:20 Labs: Lab Results 10/16/19 10/16/19 Range/Units 15:20 15:20 Potassium 5.9 H (3.4-5.1) mmol/L Phosphorus 5.0 H (2.8-4.1) mg/dL Magnesium 2.6 H (1.6-2.3) mg/dL ECG Data Attestation: I personally reviewed and interpreted this ECG as follows: Prior ECG tracings: available for review Interpretation: Sinus rhythm with occasional supraventricular premature complexes rate at 63. Normal [place]. No ST elevation or depression. Previous EKG sinus bradycardia rate in 50s. MDM Narrative Medical decision making narrative: Spoke with YOUNG Pond at [facility] to inform current potassium level of 5.9. Lab test results from 09/04 today has been for faxed to the [facility] by lab department. Mildly elevated Mg of 2.6 and phosporous of 5.0. Patient denies urinary tension and reports able to urinate without difficulty. Patient has been busy today and had not been hydrated with water until she presented to ED since this morning. The patient is also taking spironolactone 50 mg once a day which was prescribed for twice a day actually. Patient's slightly decreased kidney function test an a bump up in creatinine is likely from dehydration. Blood pressure has decreased mildly to 190/80 and is asymptomatic at this time. Patient is being hydrated with normal saline 500 mL bolus 1st and medicated patient with Lasix 20 mg IV and Kayexalate 30 mg p.o. prior discharging to home. Patient advised to hydrate adequately since Lasix and Kayexalate may dehydrated with increasing urine and stool output. Patient reported has no problem hydrating orally. Patient advised to follow-up with [facility] as scheduled tomorrow for recheck on her labs and treatment as needed. Patient advised to follow-up with network infrastructure architect and PCP for elevated blood pressure, decreased kidney function, and elevated potassium with ongoing hypertension, multiple hypertensive medication included spironolactone. Return precautions were discussed with the patient and patient verbalized understanding and agrees with the treatment plan. <Naldo Alberto, DO - Last Filed: 10/17/19 06:55> Lab Data Labs: Lab Results 10/16/19 10/16/19 Range/Units 15:20 15:20 Potassium 5.9 H (3.4-5.1) mmol/L Phosphorus 5.0 H (2.8-4.1) mg/dL Magnesium 2.6 H (1.6-2.3) mg/dL Discharge Plan Departure Patient Disposition: Home Clinical Impression: Hyperkalemia Hypertension Qualifiers: Hypertension type: essential hypertension Qualified Code(s): I10 - Essential (primary) hypertension Discharge Date/Time: 10/16/19 18:42 Instructions: DI for Hyperkalemia, Low-Phosphorous Diet Activity Restrictions/Additional Instructions: You have been diagnosed with [hyperkalemia and elevated blood pressure. The 2nd potassium has improved from 6.7 to 5.9. It appears to be you were dehydrated as you stated and your kidney function test was somewhat decreased today. You were hydrated with IV fluid of normal saline and medicated with Lasix 20 mg IV and Kayexalate 30 mg p.o. before discharged to home. Also magnesium and phosphorus was mildly elevated today. If you take magnesium supplement please stop for next a few days. Please see diet list which is high in phosphorus and avoid these. ]. What to do: *Take your medications as directed. No new medications to go home with today. Please hydrate adequately when you get home. *Follow up with your primary care provider in 2-3 days, call for an appointment. Please follow-up with Dr. Ortega tomorrow as scheduled and you'll need repeat lab test. Also, please follow with Dr. Shea as scheduled if blood pressure is continue to be elevated. Let them know you were seen in the ED and that we asked you to be seen in follow up. *Return to ED if you have any new, worsening, or concerning symptoms, such as [chest pain, breathing difficulty, lightheadedness, unable to tolerate fluids, muscle weakness, tremor, fever or any acute concerns]. Prescriptions: No Action metoprolol succinate 100 mg tablet extended release 24 hr See Rx Instructions .ROUTE .COMPLEX Qty: 90 RF: 3 clonidine HCl 0.3 mg tablet 0.3 mg PO BID Qty: 60 RF: 1 lisinopril 40 mg tablet 40 mg PO BID Qty: 60 RF: 3 prochlorperazine maleate [Compazine] 10 mg tablet 10 mg PO Q6-8H PRNRF: 0 Avastin 25 mg/mL solution 5 mg IV ONCE RF: 0 felodipine 10 mg tablet extended release 24 hr 10 mg PO DAILY Qty: 30 RF: 0 minoxidil 10 mg tablet 10 mg PO DAILY RF: 0 spironolactone 50 mg tablet 50 mg PO DAILY RF: 0 Referrals: Kristy Ortega MD [Non-Staff] - Chuy Gudino MD [Primary Care Provider] - Precious Shea MD [Physician] - <Naldo Alberto DO - Last Filed: 10/17/19 06:55> Sign Out Provider Sign Out Attestation: Dr Alberto Co-Sign Statement: I was available for consultation during this patient's emergency department visit. This chart is signed by myself for administrative purposes only. I did not have direct contact with this patient during this visit. They were seen independently by the APC.
[2019-10-16] MEDS: SODIUM CHLORIDE 0.9% 500 ML 1000 ML IV (17:10)
[2019-10-16] MEDS: FUROSEMIDE 20 MG/2 ML VIAL IV (18:16)
[2019-10-16] MEDS: SODIUM POLYSTYRENE SULFON/SORB 15 GM/60 ML CUP 30 GM PO (18:16)
[2019-10-16 18:41] VITALS: BP 182/79; PULSE 69; RESP 15; O2SAT 99
== END 2019-10-16 18:42 | disposition home or self-care (01) ==
PROVIDERS: Emergency Medicine; Emergency Provider Nurse Practitioner Family; PCP Internal Medicine
DX: E87.5 Hyperkalemia (principal); I10 Essential (primary) hypertension; R00.1 Bradycardia, unspecified; C57.4 Malignant neoplasm of uterine adnexa, unspecified
CPT/HCPCS: 36415; 80069; 80076; 83735; 84100; 84132; 85025; 93005; 96361; 96374; 99284; J1940

== ENCOUNTER → 2019-10-23 13:32 | Outpatient (CLI) | payer MEDICARE, BC, SELFPAY ==
[2019-10-23 16:28] LABS: Alanine Aminotransferase 20 IU/L (<35); Albumin 3.9 g/dL (3.5-5.0); Albumin Globulin Ratio 1.3 (1.0-2.8); Alkaline Phosphatase 72 U/L (38-126); Aspartate Aminotransferase 37 IU/L (14-36); BUN Creatinine Ratio 20.9 (6-22); Bilirubin Total 0.4 mg/dL (0.2-1.3); Blood Urea Nitrogen 23 mg/dL (7-17); Calcium 8.9 mg/dL (8.4-10.2); Carbon Dioxide 23 mmol/L (22-32); Chloride 107 mmol/L (98-107); Estimated Glomerular Filt Rate 48.2 mL/min (>60); Globulin 3.1 g/dL (1.7-4.1); Glucose 90 mg/dL (80-110); HEMOLYSIS < 15 (0-50); Potassium 5.3 mmol/L (3.4-5.1); Sodium 138 mmol/L (137-145)
== END ==
PROVIDERS: PCP Internal Medicine; Referring Provider Internal Medicine Cardiovascular Disease; Visit Provider Obstetrics & Gynecology
DX: Z79.899 Other long term (current) drug therapy (principal)
CPT/HCPCS: 36415; 80053

== ENCOUNTER → 2019-10-25 06:45 | Outpatient (CLI) | payer MEDICARE, BC, SELFPAY ==
--- NOTE | 2019-10-25 | DI.ECHO.S_ITS ---
[facility] +---------+ : : [address] [address] : : : : [id number] : : : : Phone: [phone]---------+ Echocardiogram Report + + :Name: JUAN ANTONIO TREVIÑO Study Date: 10/25/2019 Height: 68 in : :[facility] Weight: 121 lb : : Gender: Female BSA: 1.7 m2 : :: 1940 Age: 79 yrs BP: 142/86 mmHg: :Reason For Study: Murmur : :Ordering Physician: Alexia Sanabria : :Monse Performed By: Stacie Verdin : :Referring: ALEXIA SHEA : + + Interpretation Summary 1) Normal left ventricular size, thickness, wall motion, and systolic function (EF 60-65%). 2) Normal right ventricular size and function. 3) There is mild to moderate tricuspid regurgitation. 4) Compared to the Echo done 06/05/2011, no change in valvluar abnormalities or LV function. Procedure: A two-dimensional transthoracic echocardiogram with color flow and Doppler was performed. The study quality was technically adequate. Comparison is made with the echocardiogram of 06/05/2011. Short segment of tachycardia with a heart rate of 101bpm was visualized during the exam. The patient was in sinus bradycardia with heart rates between 52-61 bpm during the exam. Left Ventricle: The left ventricle is normal in size and wall thickness. The ejection fraction is estimated to be 60-65%. Left ventricular wall motion is normal. Right Ventricle: The right ventricle is normal in size and function. Atria: The left atrium is moderately dilated. The right atrium is mild to moderately dilated. There is no Doppler evidence for an interatrial shunt. Mitral Valve: The mitral valve leaflets appear mildly thickened, but open well. There is mild mitral regurgitation. Aortic Valve: The aortic valve is trileaflet. The aortic valve opens well. There is mild aortic valve sclerosis. There is no aortic valve stenosis. There is mild aortic regurgitation. Tricuspid Valve: The tricuspid valve leaflets are thin and pliable. There is mild to moderate tricuspid regurgitation. The right ventricular systolic pressure is estimated to be at least 38 mmHg based on an estimated right atrial pressure of 8 mm Hg. Pulmonic Valve: The pulmonic valve is normal in structure and function. There is no pulmonic valvular regurgitation. Great Vessels: The aortic root is normal size. The aortic arch is normal in size. The ascending aorta is normal in size. The IVC is dilated (diameter is greater than 2.1 cm) yet it collapses greater than 50% with a sniff. This suggests a right atrial pressure of 8 mm Hg. Pericardium/ Pleura There is no pericardial effusion. MMode/2D Measurements & Calculations LVIDd: 4.5 cm LVOT diam: 1.8 cm LVIDs: 2.9 cm Ao root diam: 3.1 cm FS: 34.9 % asc Aorta Diam: 2.6 cm EPSS: 0.28 cm Ao Arch Diam (Prox Trans): 2.2 cm IVSd: 0.73 cm LVPWd: 0.73 cm LV thompson. diameter/BSA (cm/m^2): 2.7 LV sys. diameter/BSA (cm/m^2): 1.8 LA A2 area: 25.0 cm2 RA long axis: 4.7 cm LA A4 area: 18.6 cm2 RA area: 18.5 cm2 LA length (vol): 4.9 cm RA vol: 61.7 ml LA vol: 81.3 ml RA : 37.4 ml/m2 LA vol index: 49.3 ml/m2 IVC diam: 2.4 cm RVD1 (basal): 3.1 cm RVD2 (mid): 2.9 cm TAPSE: 2.5 cm Doppler Measurements & Calculations Ao V2 max: 107.8 cm/sec LVOT Max Baron: 122.0 cm/sec Ao V2 mean: 69.6 cm/sec LV V1 max P.9 mmHg Ao max P.6 mmHg LV V1 VTI: 28.8 cm Ao mean P.3 mmHg REYNALDO(I,D): 2.7 cm2 Ao V2 VTI: 27.0 cm REYNALDO(V,D): 2.9 cm2 sev ratio: 1.1 REYNALDO indexed to BSA (cm^2/m^2): 1.6 MV E max baron: 117.7 cm/sec TR max baron: 272.8 cm/sec MV A max baron: 86.4 cm/sec TR max P.8 mmHg MV E/A: 1.4 PA V2 max: 77.3 cm/sec Med Peak E' Baron: 7.8 cm/sec PA V2 mean: 56.5 cm/sec E/E' med: 15.1 PA mean P.4 mmHg Lat Peak E' Baron: 11.8 cm/sec PA pr(Accel): 20.9 mmHg E/E' lat: 10.0 PA Accel Time: 0.16 sec E/e' average: 12.5 MV dec time: 0.18 sec MV P1/2t: 54.8 msec MV P1/2t max baron: 117.8 cm/sec SV(LVOT): 73.0 ml MVA(P1/2t): 4.0 cm2 Reading Physician:09:38 AM
== END ==
PROVIDERS: PCP Internal Medicine; Referring Provider Internal Medicine Cardiovascular Disease; Visit Provider Internal Medicine Cardiovascular Disease
DX: I08.3 Combined rheumatic disorders of mitral, aortic and tricuspid valves (principal); R01.1 Cardiac murmur, unspecified
CPT/HCPCS: 93306

== ENCOUNTER 2019-10-31 13:00 | Outpatient (RCR) | payer MEDICARE, BC, SELFPAY ==
--- NOTE | 2019-10-02 16:49 | PT.OIE ---
Current Diagnoses Lymphedema, not elsewhere classified (10/02/19) Other specified disorders of muscle (10/02/19) Past Medical History (Last Reviewed 05/01/19 @ 16:52 by Chuy Gudino MD) Essential hypertension (Chronic) Fallopian tube carcinoma (Chronic) Pulmonary nodule (Chronic) Past Surgical History (Last Reviewed 05/01/19 @ 16:52 by Chuy Gudino MD) History of partial pancreatectomy (Inactive) S/P total abdominal hysterectomy and bilateral salpingo-oophorectomy (Inactive ~2013) Status post exploratory laparotomy (Inactive) Status post splenectomy (Inactive) Visit Care Team Role Provider Type Chuy Gudino MD Primary Care Provider Physician Specialty: Internal Medicine Address: [address] [place] [address], [address], [address] Email: [email or web address] Other Providers Specialty: Address: Phone: Fax: Email: EVA Salvador Attending Provider Non-Staff Specialty: Women's Health Address: [address] [place] [address], [id number] Email: Physical Therapy Initial Evaluation PT-OP-A Visit Information Start: 09/30/19 10:30 Freq: Status: Active Protocol: Document 10/02/19 14:29 [facility] (Rec: 10/02/19 16:34 [facility] [id number]) Out-Patient Physical Therapy Visit Information Visit Information Visit Type Initial Evaluation Visit Start Time 14:30 Visit Stop Time 15:45 Total Visit Minutes 75 Visit Number 1 Number of CIVIL SERVICE CLERK Visits 0 Evaluation Information Evaluation Date 10/02/19 Precautions Precautions history of cervical cancer, ongoing chemotherapy every 3 weeks, abdominal hernia, history of cellulitis, HTN, scoliosis PT-OP-B Current Condition Start: 09/30/19 10:30 Freq: Status: Active Protocol: Document 10/02/19 14:29 [facility] (Rec: 10/02/19 16:34 [facility] [id number]) Current Condition History of Current Condition Onset Date 6 months Current Complaints left LE lymphedema; stays red, hot, tight History of Current Condition Patient initially diagnosed with cervical cancer in 2013, underwent hysterectomy and oophorectomy and chem, with reported 26 lymph nodes biopsied. 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 Has had treatment previously for lymphedema and wears knee high compression stockings. Pantyhose-style compression previously recommended by PT but patient finds them very difficult to don and states she doesn't see a difference when she wears those vs knee high. Lymphedema worse on left, worst in lower leg and foot. Reports cellulitis 1 year ago left LE treated with antibiotics. States for unknown reason 6 months ago her lymphedema started to worsen and reports frequent redness and warmth. Had an ultrasound last week to check for a clot and test was negative. Prior Treatments and Tests ultrasound last week, negative for any clots left LE Future Testing and Treatments Planned doing chemo every 3 wks Hot spots lung, supraclavicular on left, intercostal region right, liver; physicians watching. Avastin side effect is HTN, having difficulty controlling BP, continues to work with her GP on this. Treatment Goals Patient/Caregiver Goals Decrease lymphedema to allow her to walk more easily, wear usual clothes, be caregiver for her more easily. 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 PT-OP-C Subjective Start: 09/30/19 10:30 Freq: Status: Active Protocol: Document 10/02/19 14:29 [facility] (Rec: 10/02/19 16:34 [facility] [id number]) OP-PT Pain Assessment Pain Assessment Grid Paper Pain Assessment Grid Completed Yes Location left LE Pain Location Details worst in foot Description Aching,Burning,Tightness PT-OP-G Mobility & Gait Start: 09/30/19 10:30 Freq: Status: Active Protocol: Document 10/02/19 14:29 [facility] (Rec: 10/02/19 16:34 [facility] [id number]) OP Mobility Evaluation Transfers Sit to Stand indep Bed to Chair Transfers indep Car Transfers indep OP Gait Assessment Gait Gait Assistance Required: Independent Assistive Devices Assistive Device None Gait Deviations General Gait Pattern Antalgic Factors Limiting Gait Function Factors Limiting Gait Function Decreased Strength, Incoordination,Pain Comments Gait Comments limited by weight of leg from lymphedema, scoliosis pain PT-OP-J Posture/Palpation/Skin Start: 09/30/19 10:30 Freq: Status: Active Protocol: Document 10/02/19 14:29 [facility] (Rec: 10/02/19 16:34 [facility] [id number]) Palpation Assessment Location abdomen Palpation Details hernia left lower leg Palpation Findings Edema,Soft Tissue Tightness Palpation Details incresed redness and warmth ( patient reports better than when seen by physician last week) Skin Assessment Edema Assessment Bilateral Leg Edema Type Pitting Edema Degree 3+ Edema Appearance Puffy,Shiny,Taut Subjective Edema Description Tightness PT-OP-K Range of Motion Start: 09/30/19 10:30 Freq: Status: Active Protocol: Document 10/02/19 14:29 [facility] (Rec: 10/02/19 16:34 [facility] [id number]) Hip Goniometric Range of Motion Hip cedric Hip ROM WFL Yes Knee Goniometric Range of Motion Knee cedric Knee ROM WFL Yes Ankle and Foot Goniometric Range of Motion Ankle and Foot Left Ankle/Foot ROM WFL No Dorsiflexion with Knee Flexed 5 Dorsiflexion with Knee Extended 0 Plantarflexion 35 Inversion 15 Eversion 10 Right Ankle/Foot ROM WFL Yes Ankle and Foot ROM Limitations ROM Limitations Soft Tissue Tightness,Swelling PT-OP-N Lymphedema Start: 09/30/19 10:30 Freq: Status: Active Protocol: Document 10/02/19 14:29 [facility] (Rec: 10/02/19 16:34 [facility] [id number]) Lymphedema Measurements Lower Extremity Circumference Measurements Right Affected MT Heads 22.7 cm Medial Malleolus 22.8 cm 10 cm From Medial Malleolus 25.4 cm 20 cm From Medial Malleolus 32.6 cm 30 cm From Medial Malleolus 31.6 cm 40 cm From Medial Malleolus 37.6 cm 50 cm From Medial Malleolus 38.9 cm 60 cm From Medial Malleolus 41.4 cm 70 cm From Medial Malleolus 50.3 cm Left Affected MT Heads 22.7 cm Medial Malleolus 25.7 cm 10 cm From Medial Malleolus 29.7 cm 20 cm From Medial Malleolus 35.6 cm 30 cm From Medial Malleolus 35.7 cm 40 cm From Medial Malleolus 38.5 cm 50 cm From Medial Malleolus 43 cm 60 cm From Medial Malleolus 46.4 cm 70 cm From Medial Malleolus 51.3 cm PT-OP-Q Treatments Start: 09/30/19 10:30 Freq: Status: Active Protocol: Document 10/02/19 14:29 [facility] (Rec: 10/02/19 16:34 [facility] [id number]) Lymphedema Treatment Manual Lymphatic Drainage Location trunk and left LE Duration 45 PT-OP-T Assessment and Plan Start: 09/30/19 10:30 Freq: Status: Active Protocol: Document 10/02/19 14:29 [facility] (Rec: 10/02/19 16:34 [facility] [id number]) Physical Therapy Assessment Rehab Potential Rehabilitation Potential Fair Evaluation Complexity Number of Personal Factors/Comorbidities 1-2 Number of Body Systems Impaired 3 Clinical Presentation at Evaluation Unstable Impairments Impairments Edema,Functional Activities, ROM Goals Four Impairment Lymphedema Life Impact Scale ( LLIS) score 50% Short Term Goal (STG) Decrease score on LLIS to no greater than 40% STG Duration 6 weeks [employer] Technical Developer Goal (LTG) Decrease score on LLIS to no greater than 25% LTG Duration 12 weeks Three Impairment decreased left ankle ROM Intermediate Goal (LTG) Improve left ankle ROM to WNL for improved use of muscle pump for reduction and management of lymphedema LTG Duration 12 weeks Two Impairment Activity intolerance due to edema and discomfort [employer] Technical Developer Goal (LTG) Patient able to resume all usual activities including being primary caregiver for her without worsening of her lymphedema. LTG Duration 12 weeks One Impairment lymphedema exacerbation [employer] Technical Developer Goal (LTG) Decrease lymphedema to a stable level (no increase or decrease more than 1 cm over the course of 1 week) and patient to obtain any new appropriate compression garments as indicated for self -management. Patient to be independent with all aspects of self-care: skin care, self- MLD, exercise, compression. LTG Duration 12 weeks Assessment Summary Assessment Patient presents with exacerbation of her lymphedema bilateral LE's left greater than right that started approximately 6 months ago for no known reason; denies change in her cancer treatment of any other issue that may have contributed. She continues with long-term chemotherapy treatments to address cervical cancer and reports no recent changes in the hot spots that are being monitored by her physicians. She had treatment for cellulitis in her left LE 1 year ago. Some redness of bilateral LE's below the know left worse than right, with puffiness and shiny skin dorsum of both feet. She is wearing knee high compression stockings as she notes no difference when she wears thigh high or pantyhose stle compression as previously recommended for her. She would benefit from physical therapy for lymphedema management to address the above goals. 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 Scheduling of PT appointments as frequently as recommended as well as being willing or able to have her LE wrapped with lymphedema bandages may be dictated by her 's needs. Physical Therapy Plan Frequency and Duration Frequency of Treatment 2-4x/wk Duration of Treatment 12 wks Plan of Care Start Date 10/02/19 Plan of Care End Date 12/31/19 Therapeutic Interventions Therapeutic Interventions Home Exercise Program, Lymphedema Management,Manual Therapy,Patient/Caregiver Education,Self-Care/Home Management,Therapeutic Activities,Therapeutic Exercises Next Visit Focus/Plan Next Note Type Treatment Note Next Visit Plan Manual lymphatic drainage, ther exercise, consider lymphedema wrapping left LE ( patient not willing today due to clothing and difficulty with mobility as she is primary caregiver for her )
--- NOTE | 2019-10-02 16:50 | PT.OPPOC ---
Physical, Occupational & Speech Therapy At [facility] Current Diagnoses Lymphedema, not elsewhere classified (10/02/19) Other specified disorders of muscle (10/02/19) Visit Care Team Role Provider Type Chuy Gudino MD Primary Care Provider Physician Specialty: Internal Medicine Address: [address] [place] [address], [facility] [address], [address] Email: [email or web address] Other Providers Specialty: Address: Phone: Fax: Email: EVA Salvador Attending Provider Non-Staff Specialty: Women's Health Address: [address] [place], [address] Email: Plan Of Care PT-OP-T Assessment and Plan Start: 09/30/19 10:30 Freq: Status: Active Protocol: Document 10/02/19 14:29 [facility] (Rec: 10/02/19 16:34 [facility] [id number]) Physical Therapy Assessment Rehab Potential Rehabilitation Potential Fair Evaluation Complexity Number of Personal Factors/Comorbidities 1-2 Number of Body Systems Impaired 3 Clinical Presentation at Evaluation Unstable Impairments Impairments Edema,Functional Activities, ROM Goals Four Impairment Lymphedema Life Impact Scale ( LLIS) score 50% Short Term Goal (STG) Decrease score on LLIS to no greater than 40% STG Duration 6 weeks [employer] Goal (LTG) Decrease score on LLIS to no greater than 25% LTG Duration 12 weeks Three Impairment decreased left ankle ROM [employer] Goal (LTG) Improve left ankle ROM to WNL for improved use of muscle pump for reduction and management of lymphedema LTG Duration 12 weeks Two Impairment Activity intolerance due to edema and discomfort [employer] Goal (LTG) Patient able to resume all usual activities including being primary caregiver for her without worsening of her lymphedema. LTG Duration 12 weeks One Impairment lymphedema exacerbation [facility] Goal (LTG) Decrease lymphedema to a stable level (no increase or decrease more than 1 cm over the course of 1 week) and patient to obtain any new appropriate compression garments as indicated for self -management. Patient to be independent with all aspects of self-care: skin care, self- MLD, exercise, compression. LTG Duration 12 weeks Assessment Summary Assessment Patient presents with exacerbation of her lymphedema bilateral LE's left greater than right that started approximately 6 months ago for no known reason; denies change in her cancer treatment of any other issue that may have contributed. She continues with long-term chemotherapy treatments to address cervical cancer and reports no recent changes in the hot spots that are being monitored by her physicians. She had treatment for cellulitis in her left LE 1 year ago. Some redness of bilateral LE's below the know left worse than right, with puffiness and shiny skin dorsum of both feet. She is wearing knee high compression stockings as she notes no difference when she wears thigh high or pantyhose stle compression as previously recommended for her. She would benefit from physical therapy for lymphedema management to address the above goals. 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 Scheduling of PT appointments as frequently as recommended as well as being willing or able to have her LE wrapped with lymphedema bandages may be dictated by her 's needs. Physical Therapy Plan Frequency and Duration Frequency of Treatment 2-4x/wk Duration of Treatment 12 wks Plan of Care Start Date 10/02/19 Plan of Care End Date 12/31/19 Therapeutic Interventions Therapeutic Interventions Home Exercise Program, Lymphedema Management,Manual Therapy,Patient/Caregiver Education,Self-Care/Home Management,Therapeutic Activities,Therapeutic Exercises Next Visit Focus/Plan Next Note Type Treatment Note Next Visit Plan Manual lymphatic drainage, ther exercise, consider lymphedema wrapping left LE ( patient not willing today due to clothing and difficulty with mobility as she is primary caregiver for her ) Plan of Care Dates Plan of Care Start Date 10/02/19 Plan of Care End Date 12/31/19 Electronically Signed by: Lara Balderas, PT 10/02/19 2389 Please Sign and Return: I have reviewed this Plan of Care and certify that the skilled therapy services above are required to meet the patient?s needs. Physician Signature Date Printed Name and Credentials Clinical Instructor Signature Printed Name and Credentials
--- NOTE | 2019-10-04 15:55 | PT.OTN ---
Current Diagnoses Lymphedema, not elsewhere classified (10/04/19) Other specified disorders of muscle (10/04/19) Physical Therapy Treatment Note PT-OP-A Visit Information Start: 09/30/19 10:30 Freq: Status: Active Protocol: Document 10/04/19 14:24 [facility] (Rec: 10/04/19 15:55 [facility] [id number]) Out-Patient Physical Therapy Visit Information Visit Information Visit Type Treatment Note Visit Start Time 14:30 Visit Stop Time 15:45 Total Visit Minutes 75 Visit Number 2 Number of CURRICULUM DEVELOPMENT SPECIALIST Visits 0 Evaluation Information Evaluation Date 10/02/19 Precautions Precautions history of cervical cancer, ongoing chemotherapy every 3 weeks, abdominal hernia, history of cellulitis, HTN, scoliosis PT-OP-B Current Condition Start: 09/30/19 10:30 Freq: Status: Active Protocol: Document 10/02/19 14:29 [facility] (Rec: 10/02/19 16:34 [facility]AK [id number]) Current Condition History of Current Condition Onset Date 6 months Current Complaints left LE lymphedema; stays red, hot, tight History of Current Condition Patient initially diagnosed with cervical cancer in 2013, underwent hysterectomy and oophorectomy and chem, with reported 26 lymph nodes biopsied. 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 Has had treatment previously for lymphedema and wears knee high compression stockings. Pantyhose-style compression previously recommended by PT but patient finds them very difficult to don and states she doesn't see a difference when she wears those vs knee high. Lymphedema worse on left, worst in lower leg and foot. Reports cellulitis 1 year ago left LE treated with antibiotics. States for unknown reason 6 months ago her lymphedema started to worsen and reports frequent redness and warmth. Had an ultrasound last week to check for a clot and test was negative. Prior Treatments and Tests ultrasound last week, negative for any clots left LE Future Testing and Treatments Planned doing chemo every 3 wks Hot spots lung, supraclavicular on left, intercostal region right, liver; physicians watching. Avastin side effect is HTN, having difficulty controlling BP, continues to work with her GP on this. Treatment Goals Patient/Caregiver Goals Decrease lymphedema to allow her to walk more easily, wear usual clothes, be caregiver for her more easily. 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 PT-OP-C Subjective Start: 09/30/19 10:30 Freq: Status: Active Protocol: Document 10/04/19 14:24 [facility] (Rec: 10/04/19 15:55 [facility] [id number]) OP-PT Subjective Patient Comments Patient Comments Wears 30mm Hg compression stockings, willing to go to 40mm Hg, will ask her physician for order for 40 mmHg. Willing to consider lymphedema bandaging but not able to be today. PT-OP-G Mobility & Gait Start: 09/30/19 10:30 Freq: Status: Active Protocol: Document 10/02/19 14:29 [facility] (Rec: 10/02/19 16:34 [facility] [id number]) OP Mobility Evaluation Transfers Sit to Stand indep Bed to Chair Transfers indep Car Transfers indep OP Gait Assessment Gait Gait Assistance Required: Independent Assistive Devices Assistive Device None Gait Deviations General Gait Pattern Antalgic Factors Limiting Gait Function Factors Limiting Gait Function Decreased Strength, Incoordination,Pain Comments Gait Comments limited by weight of leg from lymphedema, scoliosis pain PT-OP-J Posture/Palpation/Skin Start: 09/30/19 10:30 Freq: Status: Active Protocol: Document 10/02/19 14:29 [facility] (Rec: 10/02/19 16:34 [facility] [id number]) Palpation Assessment Location abdomen Palpation Details hernia left lower leg Palpation Findings Edema,Soft Tissue Tightness Palpation Details incresed redness and warmth ( patient reports better than when seen by physician last week) Skin Assessment Edema Assessment Bilateral Leg Edema Type Pitting Edema Degree 3+ Edema Appearance Puffy,Shiny,Taut Subjective Edema Description Tightness PT-OP-K Range of Motion Start: 09/30/19 10:30 Freq: Status: Active Protocol: Document 10/02/19 14:29 [facility] (Rec: 10/02/19 16:34 [facility] [id number]) Hip Goniometric Range of Motion Hip cedric Hip ROM WFL Yes Knee Goniometric Range of Motion Knee cedric Knee ROM WFL Yes Ankle and Foot Goniometric Range of Motion Ankle and Foot Left Ankle/Foot ROM WFL No Dorsiflexion with Knee Flexed 5 Dorsiflexion with Knee Extended 0 Plantarflexion 35 Inversion 15 Eversion 10 Right Ankle/Foot ROM WFL Yes Ankle and Foot ROM Limitations ROM Limitations Soft Tissue Tightness,Swelling PT-OP-N Lymphedema Start: 09/30/19 10:30 Freq: Status: Active Protocol: Document 10/02/19 14:29 [facility] (Rec: 10/02/19 16:34 [facility] [id number]) Lymphedema Measurements Lower Extremity Circumference Measurements Right Affected MT Heads 22.7 cm Medial Malleolus 22.8 cm 10 cm From Medial Malleolus 25.4 cm 20 cm From Medial Malleolus 32.6 cm 30 cm From Medial Malleolus 31.6 cm 40 cm From Medial Malleolus 37.6 cm 50 cm From Medial Malleolus 38.9 cm 60 cm From Medial Malleolus 41.4 cm 70 cm From Medial Malleolus 50.3 cm Left Affected MT Heads 22.7 cm Medial Malleolus 25.7 cm 10 cm From Medial Malleolus 29.7 cm 20 cm From Medial Malleolus 35.6 cm 30 cm From Medial Malleolus 35.7 cm 40 cm From Medial Malleolus 38.5 cm 50 cm From Medial Malleolus 43 cm 60 cm From Medial Malleolus 46.4 cm 70 cm From Medial Malleolus 51.3 cm PT-OP-Q Treatments Start: 09/30/19 10:30 Freq: Status: Active Protocol: Document 10/04/19 14:24 [facility] (Rec: 10/04/19 15:55 [facility] [id number]) Lymphedema Treatment Manual Lymphatic Drainage Location trunk and left LE Duration 45 Lymphedema Wrapping Body Location left LE Materials Comprilan over left foot and calf for demonstration and trial to increase level of compression. Other Patient issued written handout for self-wrapping and supplies for trial at home. Sequential Lymphedema Exercises Comments verbal review Patient Education Compression Garments need to increase level of compression Self Manual Lymphatic Drainage verbal review Sequential Lymphedema Exercises verbal review PT-OP-T Assessment and Plan Start: 09/30/19 10:30 Freq: Status: Active Protocol: Document 10/04/19 14:24 [facility] (Rec: 10/04/19 15:55 [facility] [id number]) Physical Therapy Assessment Rehab Potential Rehabilitation Potential Fair Evaluation Complexity Number of Personal Factors/Comorbidities 1-2 Number of Body Systems Impaired 3 Clinical Presentation at Evaluation Unstable Impairments Impairments Edema,Functional Activities, ROM Goals Four Impairment Lymphedema Life Impact Scale ( LLIS) score 50% Short Term Goal (STG) Decrease score on LLIS to no greater than 40% STG Duration 6 weeks Senior Care Goal (LTG) Decrease score on LLIS to no greater than 25% LTG Duration 12 weeks Three Impairment decreased left ankle ROM Senior Care Goal (LTG) Improve left ankle ROM to WNL for improved use of muscle pump for reduction and management of lymphedema LTG Duration 12 weeks Two Impairment Activity intolerance due to edema and discomfort Director Of Collections And Archives Goal (LTG) Patient able to resume all usual activities including being primary caregiver for her without worsening of her lymphedema. LTG Duration 12 weeks One Impairment lymphedema exacerbation Senior Care Goal (LTG) Decrease lymphedema to a stable level (no increase or decrease more than 1 cm over the course of 1 week) and patient to obtain any new appropriate compression garments as indicated for self -management. Patient to be independent with all aspects of self-care: skin care, self- MLD, exercise, compression. LTG Duration 12 weeks Assessment Summary Assessment Patient demonstrated good understanding of probable need for increased compression level in her compression stockings, and benefits of bandaging for LE lymphedema. 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 Physical Therapy Plan Frequency and Duration Frequency of Treatment 2-4x/wk Duration of Treatment 12 wks Plan of Care Start Date 10/02/19 Plan of Care End Date 12/31/19 Therapeutic Interventions Therapeutic Interventions Home Exercise Program, Lymphedema Management,Manual Therapy,Patient/Caregiver Education,Self-Care/Home Management,Therapeutic Activities,Therapeutic Exercises Next Visit Focus/Plan Next Note Type Treatment Note Next Visit Plan MLD, ther ex, lymphedema wrapping left LE. Continue lymphedema management. Review of self-wrapping. Determine if patient able to obtain 40mmHg compression stockings.
--- NOTE | 2019-10-19 16:51 | PT.OTN ---
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[employer]AT[employer] PLANT Visits 0 Precautions Precautions history of cervical cancer, ongoing chemotherapy every 3 weeks, abdominal hernia, history of cellulitis, HTN, scoliosis PT-OP-B Current Condition Start: 09/30/19 10:30 Freq: Status: Active Protocol: Document 10/02/19 14:29 [facility] (Rec: 10/02/19 16:34 [facility] [id number]) Current Condition History of Current Condition Onset Date 6 months Current Complaints left LE lymphedema; stays red, hot, tight History of Current Condition Patient initially diagnosed with cervical cancer in 2013, underwent hysterectomy and oophorectomy and chem, with reported 26 lymph nodes biopsied. 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 Has had treatment previously for lymphedema and wears knee high compression stockings. Pantyhose-style compression previously recommended by PT but patient finds them very difficult to don and states she doesn't see a difference when she wears those vs knee high. Lymphedema worse on left, worst in lower leg and foot. Reports cellulitis 1 year ago left LE treated with antibiotics. States for unknown reason 6 months ago her lymphedema started to worsen and reports frequent redness and warmth. Had an ultrasound last week to check for a clot and test was negative. Prior Treatments and Tests ultrasound last week, negative for any clots left LE Future Testing and Treatments Planned doing chemo every 3 wks Hot spots lung, supraclavicular on left, intercostal region right, liver; physicians watching. Avastin side effect is HTN, having difficulty controlling BP, continues to work with her GP on this. Treatment Goals Patient/Caregiver Goals Decrease lymphedema to allow her to walk more easily, wear usual clothes, be caregiver for her more easily. 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 PT-OP-C Subjective Start: 09/30/19 10:30 Freq: Status: Active Protocol: Document 10/19/19 14:29 [facility] (Rec: 10/19/19 16:24 [facility] [id number]) OP-PT Subjective Patient Comments Patient Comments Has gotten new compression stockings 30-40 mm Hg but not wearing today. Not sure she has seen a change in her lymphedema. Reports continued problems with HTN, has had medication changes ( see record), was unable to have most recent chemo because of blood levels of potassium. Patient very frustrated with ongoing medical issues including lymphedema. Next appointment for scans next week 2, then sees oncologist . Echocardiogram 10/25/19, sees tractor sweeper driver 10/30/19 PT-OP-G Mobility & Gait Start: 09/30/19 10:30 Freq: Status: Active Protocol: Document 10/02/19 14:29 [facility] (Rec: 10/02/19 16:34 [facility] [id number]) OP Mobility Evaluation Transfers Sit to Stand indep Bed to Chair Transfers indep Car Transfers indep OP Gait Assessment Gait Gait Assistance Required: Independent Assistive Devices Assistive Device None Gait Deviations General Gait Pattern Antalgic Factors Limiting Gait Function Factors Limiting Gait Function Decreased Strength, Incoordination,Pain Comments Gait Comments limited by weight of leg from lymphedema, scoliosis pain PT-OP-J Posture/Palpation/Skin Start: 09/30/19 10:30 Freq: Status: Active Protocol: Document 10/02/19 14:29 [facility] (Rec: 10/02/19 16:34 [facility] [id number]) Palpation Assessment Location abdomen Palpation Details hernia left lower leg Palpation Findings Edema,Soft Tissue Tightness Palpation Details incresed redness and warmth ( patient reports better than when seen by physician last week) Skin Assessment Edema Assessment Bilateral Leg Edema Type Pitting Edema Degree 3+ Edema Appearance Puffy,Shiny,Taut Subjective Edema Description Tightness PT-OP-K Range of Motion Start: 09/30/19 10:30 Freq: Status: Active Protocol: Document 10/02/19 14:29 [facility] (Rec: 10/02/19 16:34 [facility] [id number]) Hip Goniometric Range of Motion Hip cedric Hip ROM WFL Yes Knee Goniometric Range of Motion Knee cedric Knee ROM WFL Yes Ankle and Foot Goniometric Range of Motion Ankle and Foot Left Ankle/Foot ROM WFL No Dorsiflexion with Knee Flexed 5 Dorsiflexion with Knee Extended 0 Plantarflexion 35 Inversion 15 Eversion 10 Right Ankle/Foot ROM WFL Yes Ankle and Foot ROM Limitations ROM Limitations Soft Tissue Tightness,Swelling PT-OP-N Lymphedema Start: 09/30/19 10:30 Freq: Status: Active Protocol: Document 10/02/19 14:29 [facility] (Rec: 10/02/19 16:34 [facility] [id number]) Lymphedema Measurements Lower Extremity Circumference Measurements Right Affected MT Heads 22.7 cm Medial Malleolus 22.8 cm 10 cm From Medial Malleolus 25.4 cm 20 cm From Medial Malleolus 32.6 cm 30 cm From Medial Malleolus 31.6 cm 40 cm From Medial Malleolus 37.6 cm 50 cm From Medial Malleolus 38.9 cm 60 cm From Medial Malleolus 41.4 cm 70 cm From Medial Malleolus 50.3 cm Left Affected MT Heads 22.7 cm Medial Malleolus 25.7 cm 10 cm From Medial Malleolus 29.7 cm 20 cm From Medial Malleolus 35.6 cm 30 cm From Medial Malleolus 35.7 cm 40 cm From Medial Malleolus 38.5 cm 50 cm From Medial Malleolus 43 cm 60 cm From Medial Malleolus 46.4 cm 70 cm From Medial Malleolus 51.3 cm PT-OP-Q Treatments Start: 09/30/19 10:30 Freq: Status: Active Protocol: Document 10/19/19 14:29 [facility] (Rec: 10/19/19 16:24 [facility] [id number]) Lymphedema Treatment Manual Lymphatic Drainage Location trunk and left LE Duration 45 Comments gentle over fractured rib left . Using left IA, PII routes. Lymphedema Wrapping Body Location left LE Materials Artiflex and Comprilan toes to groin demo with patient instruction for home wrapping at night. Patient Education Other donning aids, compression alternatives, instructed in trial of layering her compression stockings for increased compression. PT-OP-T Assessment and Plan Start: 09/30/19 10:30 Freq: Status: Active Protocol: Document 10/19/19 14:29 [facility] (Rec: 10/19/19 16:24 [facility] [id number]) Physical Therapy Assessment Goals Four Impairment Lymphedema Life Impact Scale ( LLIS) score 50% Short Term Goal (STG) Decrease score on LLIS to no greater than 40% STG Duration 6 weeks Half-Way Goal (LTG) Decrease score on LLIS to no greater than 25% LTG Duration 12 weeks Three Impairment decreased left ankle ROM Watch And Clock Repair Clerk Goal (LTG) Improve left ankle ROM to WNL for improved use of muscle pump for reduction and management of lymphedema LTG Duration 12 weeks Two Impairment Activity intolerance due to edema and discomfort Watch And Clock Repair Clerk Goal (LTG) Patient able to resume all usual activities including being primary caregiver for her without worsening of her lymphedema. LTG Duration 12 weeks One Impairment lymphedema exacerbation Watch And Clock Repair Clerk Goal (LTG) Decrease lymphedema to a stable level (no increase or decrease more than 1 cm over the course of 1 week) and patient to obtain any new appropriate compression garments as indicated for self -management. Patient to be independent with all aspects of self-care: skin care, self- MLD, exercise, compression. LTG Duration 12 weeks Assessment Summary Assessment Decrease in edema s/p MLD. Demonstrated good understanding of demonstrated full lymphedema LE wrapping for use at night and of trial of layering of compression stockings. Interested in exploring compression alternatives. Physical Therapy Plan Frequency and Duration Frequency of Treatment 2-4x/wk Duration of Treatment 12 wks Plan of Care Start Date 10/02/19 Plan of Care End Date 12/31/19 Therapeutic Interventions Therapeutic Interventions Home Exercise Program, Lymphedema Management,Manual Therapy,Patient/Caregiver Education,Self-Care/Home Management,Therapeutic Activities,Therapeutic Exercises Next Visit Focus/Plan Next Note Type Treatment Note Next Visit Plan MLD, ther ex, lymphedema wrapping left LE. Continue lymphedema management. Review of self-wrapping. Determine if patient able to obtain 40mmHg compression stockings.
--- NOTE | 2019-10-24 16:26 | PT.OTN ---
Current Diagnoses Lymphedema, not elsewhere classified (10/24/19) Other specified disorders of muscle (10/24/19) Physical Therapy Treatment Note PT-OP-A Visit Information Start: 09/30/19 10:30 Freq: Status: Active Protocol: Document 10/24/19 16:11 [facility] (Rec: 10/24/19 16:26 [facility] [id number]) Out-Patient Physical Therapy Visit Information Visit Information Visit Type Treatment Note Visit Start Time 14:30 Visit Stop Time 16:00 Total Visit Minutes 90 Visit Number 4 Number of ADVERTISING SALES MANAGER Visits 0 Precautions Precautions history of cervical cancer, ongoing chemotherapy every 3 weeks, abdominal hernia, history of cellulitis, HTN, scoliosis PT-OP-B Current Condition Start: 09/30/19 10:30 Freq: Status: Active Protocol: Document 10/02/19 14:29 [facility] (Rec: 10/02/19 16:34 [facility] [id number]) Current Condition History of Current Condition Onset Date 6 months Current Complaints left LE lymphedema; stays red, hot, tight History of Current Condition Patient initially diagnosed with cervical cancer in 2013, underwent hysterectomy and oophorectomy and chem, with reported 26 lymph nodes biopsied. 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 Has had treatment previously for lymphedema and wears knee high compression stockings. Pantyhose-style compression previously recommended by PT but patient finds them very difficult to don and states she doesn't see a difference when she wears those vs knee high. Lymphedema worse on left, worst in lower leg and foot. Reports cellulitis 1 year ago left LE treated with antibiotics. States for unknown reason 6 months ago her lymphedema started to worsen and reports frequent redness and warmth. Had an ultrasound last week to check for a clot and test was negative. Prior Treatments and Tests ultrasound last week, negative for any clots left LE Future Testing and Treatments Planned doing chemo every 3 wks Hot spots lung, supraclavicular on left, intercostal region right, liver; physicians watching. Avastin side effect is HTN, having difficulty controlling BP, continues to work with her GP on this. Treatment Goals Patient/Caregiver Goals Decrease lymphedema to allow her to walk more easily, wear usual clothes, be caregiver for her more easily. 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 PT-OP-C Subjective Start: 09/30/19 10:30 Freq: Status: Active Protocol: Document 10/24/19 16:11 [facility] (Rec: 10/24/19 16:26 [facility] [id number]) OP-PT Subjective Patient Comments Patient Comments Reports she feels her edema continues to worsen, feels at least some related to her medications. Having echocardiogram tomorrow. Sees geospatial scientist 10/30/19. Wearing knee high compression stockings (knee high) today, no compression above. Hasn't been able to layer compression ; unable to put new stocking over old thigh high. States she feels her edema worsening, especially in her thigh. Agreeable to try new knee high stockings with old thigh high for more gradient effect as previously instructed. Patient reports LE cramping with lymphedema wraps, did not bring with her today. PT-OP-G Mobility & Gait Start: 09/30/19 10:30 Freq: Status: Active Protocol: Document 10/02/19 14:29 [facility] (Rec: 10/02/19 16:34 [facility] [id number]) OP Mobility Evaluation Transfers Sit to Stand indep Bed to Chair Transfers indep Car Transfers indep OP Gait Assessment Gait Gait Assistance Required: Independent Assistive Devices Assistive Device None Gait Deviations General Gait Pattern Antalgic Factors Limiting Gait Function Factors Limiting Gait Function Decreased Strength, Incoordination,Pain Comments Gait Comments limited by weight of leg from lymphedema, scoliosis pain PT-OP-J Posture/Palpation/Skin Start: 09/30/19 10:30 Freq: Status: Active Protocol: Document 10/02/19 14:29 [facility] (Rec: 10/02/19 16:34 [facility] [id number]) Palpation Assessment Location abdomen Palpation Details hernia left lower leg Palpation Findings Edema,Soft Tissue Tightness Palpation Details incresed redness and warmth ( patient reports better than when seen by physician last week) Skin Assessment Edema Assessment Bilateral Leg Edema Type Pitting Edema Degree 3+ Edema Appearance Puffy,Shiny,Taut Subjective Edema Description Tightness PT-OP-K Range of Motion Start: 09/30/19 10:30 Freq: Status: Active Protocol: Document 10/02/19 14:29 [facility] (Rec: 10/02/19 16:34 [facility] [id number]) Hip Goniometric Range of Motion Hip cedric Hip ROM WFL Yes Knee Goniometric Range of Motion Knee cedric Knee ROM WFL Yes Ankle and Foot Goniometric Range of Motion Ankle and Foot Left Ankle/Foot ROM WFL No Dorsiflexion with Knee Flexed 5 Dorsiflexion with Knee Extended 0 Plantarflexion 35 Inversion 15 Eversion 10 Right Ankle/Foot ROM WFL Yes Ankle and Foot ROM Limitations ROM Limitations Soft Tissue Tightness,Swelling PT-OP-N Lymphedema Start: 09/30/19 10:30 Freq: Status: Active Protocol: Document 10/24/19 16:11 [facility] (Rec: 10/24/19 16:26 [facility] [id number]) Lymphedema Measurements Lower Extremity Circumference Measurements Left Affected MT Heads 23 cm Medial Malleolus 25.7 cm 10 cm From Medial Malleolus 30.4 cm 20 cm From Medial Malleolus 37.4 cm 30 cm From Medial Malleolus 38.2 cm 40 cm From Medial Malleolus 47.1 cm 50 cm From Medial Malleolus 51.8 cm 60 cm From Medial Malleolus 57.6 cm 70 cm From Medial Malleolus 62.8 cm PT-OP-Q Treatments Start: 09/30/19 10:30 Freq: Status: Active Protocol: Document 10/24/19 16:11 [facility] (Rec: 10/24/19 16:26 [facility] [id number]) Lymphedema Treatment Manual Lymphatic Drainage Location trunk and left LE Duration 45 Comments gentle over fractured rib left . Using left IA, PII routes. Lymphedema Wrapping Body Location left LE Materials assisted patient to don her new compression stocking (30- 40 mm Hg) and will done thigh high 20mm Hg over when she gets home. Other Patient did not come to PT wearing her LE wraps Sequential Lymphedema Exercises Comments verbal review Patient Education Compression Garments further discussion of layering of compression Other video shown to patient of Juzo gator slippie device for donning of compression stockings. PT-OP-T Assessment and Plan Start: 09/30/19 10:30 Freq: Status: Active Protocol: Document 10/24/19 16:11 [facility] (Rec: 10/24/19 16:26 [facility] [id number]) Physical Therapy Assessment Rehab Potential Rehabilitation Potential Fair Evaluation Complexity Number of Personal Factors/Comorbidities 1-2 Number of Body Systems Impaired 3 Clinical Presentation at Evaluation Unstable Impairments Impairments Edema,Functional Activities, ROM Goals Four Impairment Lymphedema Life Impact Scale ( LLIS) score 50% Short Term Goal (STG) Decrease score on LLIS to no greater than 40% STG Duration 6 weeks Pawn Broker Goal (LTG) Decrease score on LLIS to no greater than 25% LTG Duration 12 weeks Three Impairment decreased left ankle ROM Correction Goal (LTG) Improve left ankle ROM to WNL for improved use of muscle pump for reduction and management of lymphedema LTG Duration 12 weeks Two Impairment Activity intolerance due to edema and discomfort Correction Goal (LTG) Patient able to resume all usual activities including being primary caregiver for her without worsening of her lymphedema. LTG Duration 12 weeks One Impairment lymphedema exacerbation Correction Goal (LTG) Decrease lymphedema to a stable level (no increase or decrease more than 1 cm over the course of 1 week) and patient to obtain any new appropriate compression garments as indicated for self -management. Patient to be independent with all aspects of self-care: skin care, self- MLD, exercise, compression. LTG Duration 12 weeks Assessment Summary Assessment Lymphedema increased, no signs or symptoms of cellulitis. Patient not wearing adequate compression; only wearing knee high, needs further problem solving of compression as discussed today. Also continue to work on problem- solving donning of higher compression stockings; shown Juzo gator slippie today and donning gloves; will need further review and practice of aids before determining most helpful and appropriate for this patient. Physical Therapy Plan Frequency and Duration Frequency of Treatment 2-4x/wk Duration of Treatment 12 wks Plan of Care Start Date 10/02/19 Plan of Care End Date 12/31/19 Therapeutic Interventions Therapeutic Interventions Home Exercise Program, Lymphedema Management,Manual Therapy,Patient/Caregiver Education,Self-Care/Home Management,Therapeutic Activities,Therapeutic Exercises Next Visit Focus/Plan Next Note Type Treatment Note Next Visit Plan MLD, further problem solving of compression levels and donning aid use, application of compression wraps as indicated, recumbant elliptical after compression applied.
--- NOTE | 2019-10-26 16:31 | PT.OTN ---
Current Diagnoses Lymphedema, not elsewhere classified (10/26/19) Other specified disorders of muscle (10/26/19) Physical Therapy Treatment Note PT-OP-A Visit Information Start: 09/30/19 10:30 Freq: Status: Active Protocol: Document 10/26/19 16:15 [facility] (Rec: 10/26/19 16:29 [facility] [id number]) Out-Patient Physical Therapy Visit Information Visit Information Visit Type Treatment Note Visit Start Time 14:30 Visit Stop Time 16:00 Total Visit Minutes 90 Visit Number 5 Number of MANAGER OF SOFTWARE Visits 0 Precautions Precautions history of cervical cancer, ongoing chemotherapy every 3 weeks, abdominal hernia, history of cellulitis, HTN, scoliosis PT-OP-B Current Condition Start: 09/30/19 10:30 Freq: Status: Active Protocol: Document 10/02/19 14:29 [facility] (Rec: 10/02/19 16:34 [facility] [id number]) Current Condition History of Current Condition Onset Date 6 months Current Complaints left LE lymphedema; stays red, hot, tight History of Current Condition Patient initially diagnosed with cervical cancer in 2013, underwent hysterectomy and oophorectomy and chem, with reported 26 lymph nodes biopsied. 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 Has had treatment previously for lymphedema and wears knee high compression stockings. Pantyhose-style compression previously recommended by PT but patient finds them very difficult to don and states she doesn't see a difference when she wears those vs knee high. Lymphedema worse on left, worst in lower leg and foot. Reports cellulitis 1 year ago left LE treated with antibiotics. States for unknown reason 6 months ago her lymphedema started to worsen and reports frequent redness and warmth. Had an ultrasound last week to check for a clot and test was negative. Prior Treatments and Tests ultrasound last week, negative for any clots left LE Future Testing and Treatments Planned doing chemo every 3 wks Hot spots lung, supraclavicular on left, intercostal region right, liver; physicians watching. Avastin side effect is HTN, having difficulty controlling BP, continues to work with her GP on this. Treatment Goals Patient/Caregiver Goals Decrease lymphedema to allow her to walk more easily, wear usual clothes, be caregiver for her more easily. 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 PT-OP-C Subjective Start: 09/30/19 10:30 Freq: Status: Active Protocol: Document 10/26/19 16:15 [facility] (Rec: 10/26/19 16:29 [facility] [id number]) OP-PT Subjective Patient Comments Patient Comments States she tried wearing her thigh high plus new knee high compression stocking yesterday , didn't notice bit difference in edema, though did report urinating more yesterday. Won 't be able to be wrapped today due to footwear, states she will wrap tonight. Feels lymphedema keeps getting worse . Agreeable to try pneumatic sequential pump today. PT-OP-G Mobility & Gait Start: 09/30/19 10:30 Freq: Status: Active Protocol: Document 10/02/19 14:29 [facility] (Rec: 10/02/19 16:34 [facility] [id number]) OP Mobility Evaluation Transfers Sit to Stand indep Bed to Chair Transfers indep Car Transfers indep OP Gait Assessment Gait Gait Assistance Required: Independent Assistive Devices Assistive Device None Gait Deviations General Gait Pattern Antalgic Factors Limiting Gait Function Factors Limiting Gait Function Decreased Strength, Incoordination,Pain Comments Gait Comments limited by weight of leg from lymphedema, scoliosis pain PT-OP-J Posture/Palpation/Skin Start: 09/30/19 10:30 Freq: Status: Active Protocol: Document 10/02/19 14:29 [facility] (Rec: 10/02/19 16:34 [facility] [id number]) Palpation Assessment Location abdomen Palpation Details hernia left lower leg Palpation Findings Edema,Soft Tissue Tightness Palpation Details incresed redness and warmth ( patient reports better than when seen by physician last week) Skin Assessment Edema Assessment Bilateral Leg Edema Type Pitting Edema Degree 3+ Edema Appearance Puffy,Shiny,Taut Subjective Edema Description Tightness PT-OP-K Range of Motion Start: 09/30/19 10:30 Freq: Status: Active Protocol: Document 10/02/19 14:29 [facility] (Rec: 10/02/19 16:34 [facility] [id number]) Hip Goniometric Range of Motion Hip cedric Hip ROM WFL Yes Knee Goniometric Range of Motion Knee cedric Knee ROM WFL Yes Ankle and Foot Goniometric Range of Motion Ankle and Foot Left Ankle/Foot ROM WFL No Dorsiflexion with Knee Flexed 5 Dorsiflexion with Knee Extended 0 Plantarflexion 35 Inversion 15 Eversion 10 Right Ankle/Foot ROM WFL Yes Ankle and Foot ROM Limitations ROM Limitations Soft Tissue Tightness,Swelling PT-OP-N Lymphedema Start: 09/30/19 10:30 Freq: Status: Active Protocol: Document 10/26/19 16:15 [facility] (Rec: 10/26/19 16:29 [facility] [id number]) Lymphedema Measurements Lower Extremity Circumference Measurements Right Affected MT Heads 23.7 cm Medial Malleolus 27 cm 10 cm From Medial Malleolus 27.6 cm 20 cm From Medial Malleolus 35.9 cm 30 cm From Medial Malleolus 36.1 cm 40 cm From Medial Malleolus 37.6 cm 50 cm From Medial Malleolus 41.4 cm 60 cm From Medial Malleolus 44.7 cm 70 cm From Medial Malleolus 50.9 cm PT-OP-Q Treatments Start: 09/30/19 10:30 Freq: Status: Active Protocol: Document 10/26/19 16:15 [facility] (Rec: 10/26/19 16:29 [facility] [id number]) Cardio Equipment Recumbent Elliptical (Biodex) Duration (Minutes) 5 Resistance 1 Other to facilitate lymphatic flow after MLD and compression stocking application Lymphedema Treatment Manual Lymphatic Drainage Location trunk and right LE Duration 45 Comments gentle over fractured rib left . Using left IA, PII routes. Lymphedema Wrapping Body Location cedric LE Materials assisted patient to don her new compression stocking left LE (30-40 mm Hg) using [email or web address] Gator (patient to borrow over weekend to see if wants to purchase one), and assisted in donning thigh-high stocking (20 mm Hg) over top on left LE On right LE toes wrapped and assisted patient in donning 20 mm Hg stocking. Other Patient to wrap at night PT-OP-R Modalities Start: 09/30/19 10:30 Freq: Status: Active Protocol: Document 10/26/19 16:29 [facility] (Rec: 10/26/19 16:31 [facility] [id number]) Compression Pump Treatment Treatment Location Left Leg Pressure Amount (mmHg) (mmHG) 45 Inflation Time (Seconds) 30 Deflation Time (Seconds) 10 Treatment Duration (minutes) 50 Treatment Tolerance Good Treatment Comments decrease edema left ankle PT-OP-T Assessment and Plan Start: 09/30/19 10:30 Freq: Status: Active Protocol: Document 10/26/19 16:15 [facility] (Rec: 10/26/19 16:29 [facility] [id number]) Physical Therapy Assessment Rehab Potential Rehabilitation Potential Fair Evaluation Complexity Number of Personal Factors/Comorbidities 1-2 Number of Body Systems Impaired 3 Clinical Presentation at Evaluation Unstable Impairments Impairments Edema,Functional Activities, ROM Goals Four Impairment Lymphedema Life Impact Scale ( LLIS) score 50% Short Term Goal (STG) Decrease score on LLIS to no greater than 40% STG Duration 6 weeks Alf Goal (LTG) Decrease score on LLIS to no greater than 25% LTG Duration 12 weeks Three Impairment decreased left ankle ROM Control Systems Eng Goal (LTG) Improve left ankle ROM to WNL for improved use of muscle pump for reduction and management of lymphedema LTG Duration 12 weeks Two Impairment Activity intolerance due to edema and discomfort Alf Goal (LTG) Patient able to resume all usual activities including being primary caregiver for her without worsening of her lymphedema. LTG Duration 12 weeks One Impairment lymphedema exacerbation Alf Goal (LTG) Decrease lymphedema to a stable level (no increase or decrease more than 1 cm over the course of 1 week) and patient to obtain any new appropriate compression garments as indicated for self -management. Patient to be independent with all aspects of self-care: skin care, self- MLD, exercise, compression. LTG Duration 12 weeks Assessment Summary Assessment Patient showed some reduction around ankle with pneumatic pump today. Not able to be wrapped but able to layer her compression garments today. 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 States she will continue to work on coming with footwear and clothing that will allow her to be wrapped at PT. Physical Therapy Plan Frequency and Duration Frequency of Treatment 2-4x/wk Duration of Treatment 12 wks Plan of Care Start Date 10/02/19 Plan of Care End Date 12/31/19 Therapeutic Interventions Therapeutic Interventions Home Exercise Program, Lymphedema Management,Manual Therapy,Patient/Caregiver Education,Self-Care/Home Management,Therapeutic Activities,Therapeutic Exercises Next Visit Focus/Plan Next Note Type Treatment Note Next Visit Plan Discuss physician visit, response to last treatment. MLD, pneumatic pump, lymphedema wrapping if able, assess ability to don compression stockings with device, continue to problem solve with lymphedema management. Pre and post pump measurements.
--- NOTE | 2019-10-31 15:56 | PT.OTN ---
Current Diagnoses Lymphedema, not elsewhere classified (10/31/19) Other specified disorders of muscle (10/31/19) Physical Therapy Treatment Note PT-OP-A Visit Information Start: 09/30/19 10:30 Freq: Status: Active Protocol: Document 10/31/19 12:57 [facility] (Rec: 10/31/19 14:45 [facility] [id number]) Out-Patient Physical Therapy Visit Information Visit Information Visit Type Treatment Note Visit Start Time 13:00 Visit Stop Time 14:30 Total Visit Minutes 90 Visit Number 6 Number of CLEAT FEEDER Visits 0 Precautions Precautions history of cervical cancer, ongoing chemotherapy every 3 weeks, abdominal hernia, history of cellulitis, HTN, scoliosis PT-OP-B Current Condition Start: 09/30/19 10:30 Freq: Status: Active Protocol: Document 10/02/19 14:29 [facility] (Rec: 10/02/19 16:34 [facility] [id number]) Current Condition History of Current Condition Onset Date 6 months Current Complaints left LE lymphedema; stays red, hot, tight History of Current Condition Patient initially diagnosed with cervical cancer in 2013, underwent hysterectomy and oophorectomy and chem, with reported 26 lymph nodes biopsied. 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 Has had treatment previously for lymphedema and wears knee high compression stockings. Pantyhose-style compression previously recommended by PT but patient finds them very difficult to don and states she doesn't see a difference when she wears those vs knee high. Lymphedema worse on left, worst in lower leg and foot. Reports cellulitis 1 year ago left LE treated with antibiotics. States for unknown reason 6 months ago her lymphedema started to worsen and reports frequent redness and warmth. Had an ultrasound last week to check for a clot and test was negative. Prior Treatments and Tests ultrasound last week, negative for any clots left LE Future Testing and Treatments Planned doing chemo every 3 wks Hot spots lung, supraclavicular on left, intercostal region right, liver; physicians watching. Avastin side effect is HTN, having difficulty controlling BP, continues to work with her GP on this. Treatment Goals Patient/Caregiver Goals Decrease lymphedema to allow her to walk more easily, wear usual clothes, be caregiver for her more easily. 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 PT-OP-C Subjective Start: 09/30/19 10:30 Freq: Status: Active Protocol: Document 10/31/19 12:57 [facility] (Rec: 10/31/19 14:45 [facility] [id number]) OP-PT Subjective Patient Comments Patient Comments Saw tax senior associate yesterday who was concerned about the fragility of her skin. He eliminated 1 medication, added Lasix. He told her that 2 of her current medications cause fluid retention. Echo was clear. He advised wearing thigh high without layering due to skin concerns. Stopped Metoprolol, added Carvediol and Lasix. Has body scans and sees Dr. Ortega 09/08/19 . PT-OP-G Mobility & Gait Start: 09/30/19 10:30 Freq: Status: Active Protocol: Document 10/02/19 14:29 [facility] (Rec: 10/02/19 16:34 [facility] [id number]) OP Mobility Evaluation Transfers Sit to Stand indep Bed to Chair Transfers indep Car Transfers indep OP Gait Assessment Gait Gait Assistance Required: Independent Assistive Devices Assistive Device None Gait Deviations General Gait Pattern Antalgic Factors Limiting Gait Function Factors Limiting Gait Function Decreased Strength, Incoordination,Pain Comments Gait Comments limited by weight of leg from lymphedema, scoliosis pain PT-OP-J Posture/Palpation/Skin Start: 09/30/19 10:30 Freq: Status: Active Protocol: Document 10/02/19 14:29 [facility] (Rec: 10/02/19 16:34 [facility] [id number]) Palpation Assessment Location abdomen Palpation Details hernia left lower leg Palpation Findings Edema,Soft Tissue Tightness Palpation Details incresed redness and warmth ( patient reports better than when seen by physician last week) Skin Assessment Edema Assessment Bilateral Leg Edema Type Pitting Edema Degree 3+ Edema Appearance Puffy,Shiny,Taut Subjective Edema Description Tightness PT-OP-K Range of Motion Start: 09/30/19 10:30 Freq: Status: Active Protocol: Document 10/02/19 14:29 [facility] (Rec: 10/02/19 16:34 [facility] [id number]) Hip Goniometric Range of Motion Hip cedric Hip ROM WFL Yes Knee Goniometric Range of Motion Knee cedric Knee ROM WFL Yes Ankle and Foot Goniometric Range of Motion Ankle and Foot Left Ankle/Foot ROM WFL No Dorsiflexion with Knee Flexed 5 Dorsiflexion with Knee Extended 0 Plantarflexion 35 Inversion 15 Eversion 10 Right Ankle/Foot ROM WFL Yes Ankle and Foot ROM Limitations ROM Limitations Soft Tissue Tightness,Swelling PT-OP-N Lymphedema Start: 09/30/19 10:30 Freq: Status: Active Protocol: Document 10/31/19 12:57 [facility] (Rec: 10/31/19 14:45 [facility] [id number]) Lymphedema Measurements Lower Extremity Circumference Measurements left affected after pneumatic pump MT Heads 23.2 cm Medial Malleolus 31 cm 10 cm From Medial Malleolus 30.5 cm 20 cm From Medial Malleolus 38.3 cm 30 cm From Medial Malleolus 39.5 cm 40 cm From Medial Malleolus 41.4 cm 50 cm From Medial Malleolus 42.5 cm 60 cm From Medial Malleolus 48 cm 70 cm From Medial Malleolus 51.6 cm Left Affected MT Heads 23.3 cm Medial Malleolus 31 cm 10 cm From Medial Malleolus 30.5 cm 20 cm From Medial Malleolus 38.3 cm 30 cm From Medial Malleolus 39.5 cm 40 cm From Medial Malleolus 41.4 cm 50 cm From Medial Malleolus 42.5 cm 60 cm From Medial Malleolus 48 cm 70 cm From Medial Malleolus 51.6 cm PT-OP-Q Treatments Start: 09/30/19 10:30 Freq: Status: Active Protocol: Document 10/31/19 12:57 [facility] (Rec: 10/31/19 15:56 [facility] [id number]) Lymphedema Treatment Manual Lymphatic Drainage Location trunk and right LE Duration 50 Comments gentle over fractured rib left . Using left IA, PII routes. Patient Education Compression Garments don't layer per physician recommendations Other patient to bring clothing and shoes to allow wrapping with short stretch bandages increase elevation PT-OP-R Modalities Start: 09/30/19 10:30 Freq: Status: Active Protocol: Document 10/31/19 12:57 [facility] (Rec: 10/31/19 14:45 [facility] [id number]) Compression Pump Treatment Treatment Location Left Leg Pressure Amount (mmHg) (mmHG) 45 Inflation Time (Seconds) 30 Deflation Time (Seconds) 10 Treatment Duration (minutes) 30 Treatment Tolerance Good Treatment Comments decrease edema left ankle PT-OP-T Assessment and Plan Start: 09/30/19 10:30 Freq: Status: Active Protocol: Document 10/31/19 12:57 [facility] (Rec: 10/31/19 14:45 [facility] [id number]) Physical Therapy Assessment Goals Four Impairment Lymphedema Life Impact Scale ( LLIS) score 50% Short Term Goal (STG) Decrease score on LLIS to no greater than 40% STG Duration 6 weeks Furniture Assembler And Installer Goal (LTG) Decrease score on LLIS to no greater than 25% LTG Duration 12 weeks Three Impairment decreased left ankle ROM Furniture Assembler And Installer Goal (LTG) Improve left ankle ROM to WNL for improved use of muscle pump for reduction and management of lymphedema LTG Duration 12 weeks Two Impairment Activity intolerance due to edema and discomfort Furniture Assembler And Installer Goal (LTG) Patient able to resume all usual activities including being primary caregiver for her without worsening of her lymphedema. LTG Duration 12 weeks One Impairment lymphedema exacerbation Detention Goal (LTG) Decrease lymphedema to a stable level (no increase or decrease more than 1 cm over the course of 1 week) and patient to obtain any new appropriate compression garments as indicated for self -management. Patient to be independent with all aspects of self-care: skin care, self- MLD, exercise, compression. LTG Duration 12 weeks Assessment Summary Assessment Feel patient may benefit from use of home lymphedema pump for home management of lymphedema , pending response to medication changes; see measurements for changes with pump. Physical Therapy Plan Frequency and Duration Frequency of Treatment 2-4x/wk Duration of Treatment 12 wks Plan of Care Start Date 10/02/19 Plan of Care End Date 12/31/19 Therapeutic Interventions Therapeutic Interventions Home Exercise Program, Lymphedema Management,Manual Therapy,Patient/Caregiver Education,Self-Care/Home Management,Therapeutic Activities,Therapeutic Exercises Next Visit Focus/Plan Next Note Type Treatment Note Next Visit Plan Further patient education regarding self-wrapping and to determine if more effective compression at this time than her compression stockings. Continue use of pneumatic pump as well.
--- NOTE | 2019-11-02 12:43 | PT-OP ANOTE ---
cancelled due to medical issues
--- NOTE | 2020-05-08 08:51 | PT.OPDS ---
Current Diagnoses Lymphedema, not elsewhere classified (10/31/19) Other specified disorders of muscle (10/31/19) Visit Care Team Role Provider Type Chuy Gudino MD Primary Care Provider Physician Specialty: Internal Medicine Address: [address] [place] [address], [address], [place], [address] Email: [email or web address] Providers Specialty: Address: Phone: Fax: Email: EVA Salvador Attending Provider Non-Staff Specialty: Women's Health Address: [address] [place], [address] Email: Visit Number Visit Number 6 Discharge Summary PT-OP-B Current Condition Start: 09/30/19 10:30 Freq: Status: Active Protocol: Document 10/02/19 14:29 [facility] (Rec: 10/02/19 16:34 [facility] [id number]) Current Condition History of Current Condition Onset Date 6 months Current Complaints left LE lymphedema; stays red, hot, tight History of Current Condition Patient initially diagnosed with cervical cancer in 2013, underwent hysterectomy and oophorectomy and chem, with reported 26 lymph nodes biopsied. 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 Has had treatment previously for lymphedema and wears knee high compression stockings. Pantyhose-style compression previously recommended by PT but patient finds them very difficult to don and states she doesn't see a difference when she wears those vs knee high. Lymphedema worse on left, worst in lower leg and foot. Reports cellulitis 1 year ago left LE treated with antibiotics. States for unknown reason 6 months ago her lymphedema started to worsen and reports frequent redness and warmth. Had an ultrasound last week to check for a clot and test was negative. Prior Treatments and Tests ultrasound last week, negative for any clots left LE Future Testing and Treatments Planned doing chemo every 3 wks Hot spots lung, supraclavicular on left, intercostal region right, liver; physicians watching. Avastin side effect is HTN, having difficulty controlling BP, continues to work with her GP on this. Treatment Goals Patient/Caregiver Goals Decrease lymphedema to allow her to walk more easily, wear usual clothes, be caregiver for her more easily. 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 PT-OP-C Subjective Start: 09/30/19 10:30 Freq: Status: Active Protocol: Document 10/31/19 12:57 [facility] (Rec: 10/31/19 14:45 [facility] [id number]) OP-PT Subjective Patient Comments Patient Comments Saw sorting supervisor yesterday who was concerned about the fragility of her skin. He eliminated 1 medication, added Lasix. He told her that 2 of her current medications cause fluid retention. Echo was clear. He advised wearing thigh high without layering due to skin concerns. Stopped Metoprolol, added Carvediol and Lasix. Has body scans and sees Dr. Ortega 09/08/19 . PT-OP-G Mobility & Gait Start: 09/30/19 10:30 Freq: Status: Active Protocol: Document 10/02/19 14:29 [facility] (Rec: 10/02/19 16:34 [facility] [id number]) OP Mobility Evaluation Transfers Sit to Stand indep Bed to Chair Transfers indep Car Transfers indep OP Gait Assessment Gait Gait Assistance Required: Independent Assistive Devices Assistive Device None Gait Deviations General Gait Pattern Antalgic Factors Limiting Gait Function Factors Limiting Gait Function Decreased Strength, Incoordination,Pain Comments Gait Comments limited by weight of leg from lymphedema, scoliosis pain PT-OP-J Posture/Palpation/Skin Start: 09/30/19 10:30 Freq: Status: Active Protocol: Document 10/02/19 14:29 [facility] (Rec: 10/02/19 16:34 [facility] [id number]) Palpation Assessment Location abdomen Palpation Details hernia left lower leg Palpation Findings Edema,Soft Tissue Tightness Palpation Details incresed redness and warmth ( patient reports better than when seen by physician last week) Skin Assessment Edema Assessment Bilateral Leg Edema Type Pitting Edema Degree 3+ Edema Appearance Puffy,Shiny,Taut Subjective Edema Description Tightness PT-OP-K Range of Motion Start: 09/30/19 10:30 Freq: Status: Active Protocol: Document 10/02/19 14:29 [facility] (Rec: 10/02/19 16:34 [facility] [id number]) Hip Goniometric Range of Motion Hip cedric Hip ROM WFL Yes Knee Goniometric Range of Motion Knee cedric Knee ROM WFL Yes Ankle and Foot Goniometric Range of Motion Ankle and Foot Left Ankle/Foot ROM WFL No Dorsiflexion with Knee Flexed 5 Dorsiflexion with Knee Extended 0 Plantarflexion 35 Inversion 15 Eversion 10 Right Ankle/Foot ROM WFL Yes Ankle and Foot ROM Limitations ROM Limitations Soft Tissue Tightness,Swelling PT-OP-N Lymphedema Start: 09/30/19 10:30 Freq: Status: Active Protocol: Document 10/31/19 12:57 [facility] (Rec: 10/31/19 14:45 [facility] [id number]) Lymphedema Measurements Lower Extremity Circumference Measurements left affected after pneumatic pump MT Heads 23.2 cm Medial Malleolus 31 cm 10 cm From Medial Malleolus 30.5 cm 20 cm From Medial Malleolus 38.3 cm 30 cm From Medial Malleolus 39.5 cm 40 cm From Medial Malleolus 41.4 cm 50 cm From Medial Malleolus 42.5 cm 60 cm From Medial Malleolus 48 cm 70 cm From Medial Malleolus 51.6 cm Left Affected MT Heads 23.3 cm Medial Malleolus 31 cm 10 cm From Medial Malleolus 30.5 cm 20 cm From Medial Malleolus 38.3 cm 30 cm From Medial Malleolus 39.5 cm 40 cm From Medial Malleolus 41.4 cm 50 cm From Medial Malleolus 42.5 cm 60 cm From Medial Malleolus 48 cm 70 cm From Medial Malleolus 51.6 cm PT-OP-T Assessment and Plan Start: 09/30/19 10:30 Freq: Status: Active Protocol: Document 05/08/20 08:50 [facility] (Rec: 05/08/20 08:51 [facility] [id number]) Physical Therapy Plan Discharge Physical Therapy Discharge Reasons Patient Request
== END 2020-05-09 11:40 ==
LOC: PHYS 13:00
PROVIDERS: PCP Internal Medicine; Visit Provider Nurse Practitioner Women's Health
DX: I89.0 Lymphedema, not elsewhere classified (principal); M62.89 Other specified disorders of muscle
CPT/HCPCS: 97016; 97140; 97162; 97535

== ENCOUNTER → 2019-11-06 11:38 | Outpatient (CLI) | payer MEDICARE, BC, SELFPAY ==
[2019-11-06 11:58] LABS: Add Manual Diff / Slide Review NO; Basophils Absolute Auto 100 /uL (0-100); Basophils Percent Auto 1.6 % (0-2); Eosinophils Absolute Auto 100 /uL (0-450); Eosinophils Percent Auto 1.3 % (2-4); Hematocrit 35.7 % (36-46); Hemoglobin 11.9 g/dL (12.0-16.0); Lymphocytes Absolute Auto 1000 /uL (1100-4500); Lymphocytes Percent Auto 19.5 % (25-40); Mean Corpuscular HGB Conc 33.4 % (30-36); Mean Corpuscular Hemoglobin 31.7 PG (26-34); Mean Corpuscular Volume 94.8 fL (80-100); Monocytes Absolute Auto 600 /uL (0-900); Monocytes Percent Auto 11.2 % (3-14); Neutrophils Absolute Auto 3500 /uL (1500-7000); Neutrophils Percent Auto 66.4 % (50-75); Platelet Count 210 X10^3/uL (150-400); Red Blood Cell Count 3.77 X10^6/uL (4.0-5.2); Red Cell Distribution Width 14.2 % (11.6-14.8); White Blood Cell Count 5.3 X10^3/uL (4.5-11.0)
[2019-11-06 12:10] LABS: Alanine Aminotransferase 18 IU/L (<35); Albumin 4.1 g/dL (3.5-5.0); Albumin Globulin Ratio 1.3 (1.0-2.8); Alkaline Phosphatase 85 U/L (38-126); Aspartate Aminotransferase 36 IU/L (14-36); Bilirubin Total 0.4 mg/dL (0.2-1.3); Bilirubin Unconjugated 0.4 mg/dL (0.0-1.1); Blood Urea Nitrogen 28 mg/dL (7-17); Carbon Dioxide 25 mmol/L (22-32); Chloride 103 mmol/L (98-107); Estimated Glomerular Filt Rate 36.5 mL/min (>60); Globulin 3.2 g/dL (1.7-4.1); Glucose 108 mg/dL (80-110); HEMOLYSIS < 15 (0-50); Potassium 5.3 mmol/L (3.4-5.1); Sodium 136 mmol/L (137-145); Total Protein 7.3 g/dL (6.3-8.2)
== END ==
PROVIDERS: PCP Internal Medicine; Referring Provider Physician Assistant Medical; Visit Provider Physician Assistant Medical
DX: C57.4 Malignant neoplasm of uterine adnexa, unspecified (principal)
CPT/HCPCS: 36415; 80069; 80076; 85025

== ENCOUNTER → 2019-12-04 12:54 | Outpatient (CLI) | payer MEDICARE, BC, SELFPAY ==
[2019-12-04 13:35] LABS: Hematocrit 39.7 % (36-46); Hemoglobin 13.1 g/dL (12.0-16.0); Mean Corpuscular HGB Conc 32.9 % (30-36); Mean Corpuscular Hemoglobin 31.7 PG (26-34); Mean Corpuscular Volume 96.3 fL (80-100); Platelet Count 203 X10^3/uL (150-400); Red Blood Cell Count 4.12 X10^6/uL (4.0-5.2); Red Cell Distribution Width 14.1 % (11.6-14.8); White Blood Cell Count 6.4 X10^3/uL (4.5-11.0)
[2019-12-04 13:55] LABS: Alanine Aminotransferase 19 IU/L (<35); Albumin 4.6 g/dL (3.5-5.0); Albumin Globulin Ratio 1.4 (1.0-2.8); Alkaline Phosphatase 89 U/L (38-126); Aspartate Aminotransferase 38 IU/L (14-36); BUN Creatinine Ratio 30.3 (6-22); Bilirubin Total 0.5 mg/dL (0.2-1.3); Bilirubin Unconjugated 0.4 mg/dL (0.0-1.1); Blood Urea Nitrogen 33 mg/dL (7-17); Calcium 9.7 mg/dL (8.4-10.2); Carbon Dioxide 23 mmol/L (22-32); Chloride 105 mmol/L (98-107); Estimated Glomerular Filt Rate 48.7 mL/min (>60); Globulin 3.3 g/dL (1.7-4.1); Glucose 84 mg/dL (80-110); HEMOLYSIS < 15 (0-50); Phosphorous 4.8 mg/dL (2.8-4.1); Potassium 4.3 mmol/L (3.4-5.1); Sodium 139 mmol/L (137-145); Total Protein 7.9 g/dL (6.3-8.2)
[2019-12-04 13:56] LABS: Neutrophils Absolute Manual 3840 /uL (3000-5900); Total Cells Counted 100
[2019-12-04 14:01] LABS: Burr Cells 1+; Poikilocytosis 1+
== END ==
PROVIDERS: Family Provider Internal Medicine; PCP Internal Medicine; Referring Provider Obstetrics & Gynecology; Visit Provider Obstetrics & Gynecology
DX: C57.4 Malignant neoplasm of uterine adnexa, unspecified (principal); Z79.899 Other long term (current) drug therapy
CPT/HCPCS: 36415; 80069; 80076; 83735; 85025

== ENCOUNTER → 2020-01-01 11:17 | Outpatient (CLI) | payer MEDICARE, BC, SELFPAY ==
[2020-01-01 13:22] LABS: Add Manual Diff / Slide Review NO; Basophils Absolute Auto 0 /uL (0-100); Basophils Percent Auto 0.6 % (0-2); Eosinophils Absolute Auto 300 /uL (0-450); Eosinophils Percent Auto 5.4 % (2-4); Hematocrit 39.4 % (36-46); Hemoglobin 13.1 g/dL (12.0-16.0); Lymphocytes Absolute Auto 1300 /uL (1100-4500); Mean Corpuscular HGB Conc 33.3 % (30-36); Mean Corpuscular Hemoglobin 31.6 PG (26-34); Mean Corpuscular Volume 94.8 fL (80-100); Monocytes Absolute Auto 600 /uL (0-900); Neutrophils Absolute Auto 3800 /uL (1500-7000); Platelet Count 186 X10^3/uL (150-400); Red Blood Cell Count 4.16 X10^6/uL (4.0-5.2); Red Cell Distribution Width 13.5 % (11.6-14.8); White Blood Cell Count 6.1 X10^3/uL (4.5-11.0)
[2020-01-01 13:37] LABS: Alanine Aminotransferase 19 IU/L (<35); Albumin 4.5 g/dL (3.5-5.0); Albumin Globulin Ratio 1.3 (1.0-2.8); Alkaline Phosphatase 95 U/L (38-126); Aspartate Aminotransferase 40 IU/L (14-36); BUN Creatinine Ratio 31.3 (6-22); Bilirubin Total 0.6 mg/dL (0.2-1.3); Blood Urea Nitrogen 36 mg/dL (7-17); Calcium 9.8 mg/dL (8.4-10.2); Carbon Dioxide 22 mmol/L (22-32); Chloride 103 mmol/L (98-107); Estimated Glomerular Filt Rate 45.8 mL/min (>60); Globulin 3.5 g/dL (1.7-4.1); Glucose 138 mg/dL (80-110); HEMOLYSIS < 15 (0-50); Potassium 4.8 mmol/L (3.4-5.1); Sodium 136 mmol/L (137-145)
== END ==
PROVIDERS: Physician Assistant Medical; Family Provider Internal Medicine; PCP Internal Medicine; Referring Provider Internal Medicine; Visit Provider Obstetrics & Gynecology
DX: C57.4 Malignant neoplasm of uterine adnexa, unspecified (principal); Z79.899 Other long term (current) drug therapy
CPT/HCPCS: 36415; 80053; 83735; 85025

== ENCOUNTER → 2020-01-25 12:54 | Outpatient (CLI) | payer MEDICARE, BC, SELFPAY ==
[2020-01-25 13:23] LABS: Add Manual Diff / Slide Review NO; Basophils Absolute Auto 0 /uL (0-100); Basophils Percent Auto 0.8 % (0-2); Eosinophils Absolute Auto 400 /uL (0-450); Eosinophils Percent Auto 6.7 % (2-4); Hematocrit 40.9 % (36-46); Hemoglobin 13.9 g/dL (12.0-16.0); Lymphocytes Absolute Auto 1300 /uL (1100-4500); Lymphocytes Percent Auto 24.1 % (25-40); Mean Corpuscular Hemoglobin 31.9 PG (26-34); Mean Corpuscular Volume 93.8 fL (80-100); Monocytes Absolute Auto 600 /uL (0-900); Monocytes Percent Auto 11.6 % (3-14); Neutrophils Absolute Auto 3100 /uL (1500-7000); Neutrophils Percent Auto 56.8 % (50-75); Platelet Count 197 X10^3/uL (150-400); Red Blood Cell Count 4.35 X10^6/uL (4.0-5.2); Red Cell Distribution Width 13.4 % (11.6-14.8); White Blood Cell Count 5.5 X10^3/uL (4.5-11.0)
[2020-01-25 13:35] LABS: Alanine Aminotransferase 20 IU/L (<35); Albumin 4.5 g/dL (3.5-5.0); Albumin Globulin Ratio 1.2 (1.0-2.8); Alkaline Phosphatase 95 U/L (38-126); Aspartate Aminotransferase 39 IU/L (14-36); BUN Creatinine Ratio 33.3 (6-22); Bilirubin Total 0.4 mg/dL (0.2-1.3); Bilirubin Unconjugated 0.3 mg/dL (0.0-1.1); Blood Urea Nitrogen 42 mg/dL (7-17); Calcium 9.7 mg/dL (8.4-10.2); Carbon Dioxide 25 mmol/L (22-32); Chloride 102 mmol/L (98-107); Estimated Glomerular Filt Rate 41.1 mL/min (>60); Globulin 3.8 g/dL (1.7-4.1); Glucose 77 mg/dL (80-110); HEMOLYSIS < 15 (0-50); Magnesium 2.1 mg/dL (1.6-2.3); Phosphorous 4.9 mg/dL (2.8-4.1); Potassium 4.8 mmol/L (3.4-5.1); Sodium 138 mmol/L (137-145); Total Protein 8.3 g/dL (6.3-8.2)
== END ==
PROVIDERS: Family Provider Internal Medicine; PCP Internal Medicine; Referring Provider Internal Medicine; Visit Provider Obstetrics & Gynecology
DX: C57.4 Malignant neoplasm of uterine adnexa, unspecified (principal); Z79.899 Other long term (current) drug therapy
CPT/HCPCS: 36415; 80069; 80076; 83735; 85025

== ENCOUNTER → 2020-02-26 11:59 | Outpatient (CLI) | payer MEDICARE, BC, SELFPAY ==
[2020-02-26 12:27] LABS: Add Manual Diff / Slide Review NO; Basophils Absolute Auto 0 /uL (0-100); Basophils Percent Auto 0.6 % (0-2); Eosinophils Absolute Auto 100 /uL (0-450); Eosinophils Percent Auto 1.1 % (2-4); Hematocrit 40.2 % (36-46); Hemoglobin 13.6 g/dL (12.0-16.0); Lymphocytes Absolute Auto 2100 /uL (1100-4500); Lymphocytes Percent Auto 26.6 % (25-40); Mean Corpuscular HGB Conc 33.7 % (30-36); Mean Corpuscular Hemoglobin 31.8 PG (26-34); Mean Corpuscular Volume 94.4 fL (80-100); Monocytes Absolute Auto 800 /uL (0-900); Monocytes Percent Auto 9.6 % (3-14); Neutrophils Absolute Auto 4900 /uL (1500-7000); Neutrophils Percent Auto 62.1 % (50-75); Platelet Count 221 X10^3/uL (150-400); Red Blood Cell Count 4.26 X10^6/uL (4.0-5.2); Red Cell Distribution Width 13.6 % (11.6-14.8); White Blood Cell Count 7.9 X10^3/uL (4.5-11.0)
[2020-02-26 12:49] LABS: Alanine Aminotransferase 27 IU/L (<35); Albumin 4.2 g/dL (3.5-5.0); Albumin Globulin Ratio 1.3 (1.0-2.8); Alkaline Phosphatase 97 U/L (38-126); Aspartate Aminotransferase 39 IU/L (14-36); BUN Creatinine Ratio 29.7 (6-22); Bilirubin Total 0.6 mg/dL (0.2-1.3); Bilirubin Unconjugated 0.5 mg/dL (0.0-1.1); Blood Urea Nitrogen 27 mg/dL (7-17); Calcium 9.3 mg/dL (8.4-10.2); Carbon Dioxide 27 mmol/L (22-32); Chloride 101 mmol/L (98-107); Estimated Glomerular Filt Rate 59.8 mL/min (>60); Globulin 3.2 g/dL (1.7-4.1); Glucose 94 mg/dL (80-110); HEMOLYSIS < 15 (0-50); Magnesium 2.4 mg/dL (1.6-2.3); Phosphorous 3.5 mg/dL (2.8-4.1); Potassium 5.1 mmol/L (3.4-5.1); Sodium 134 mmol/L (137-145); Total Protein 7.4 g/dL (6.3-8.2)
== END ==
PROVIDERS: Family Provider Internal Medicine; PCP Internal Medicine; Referring Provider Physician Assistant Medical; Visit Provider Physician Assistant Medical
DX: C57.4 Malignant neoplasm of uterine adnexa, unspecified (principal); Z79.899 Other long term (current) drug therapy
CPT/HCPCS: 36415; 80069; 80076; 83735; 85025

== ENCOUNTER → 2020-03-21 14:18 | Outpatient (CLI) | payer MEDICARE, BC, SELFPAY ==
--- NOTE | 2020-03-21 | DI.US.S_ITS ---
ULTRASOUND OF RIGHT BREAST: 03/21/2020 CLINICAL: Patient returns for short term follow-up of a probably benign mass in the right breast. Patient returns for a 6 month follow up of the right breast. Comparison is made to exams dated: 03/21/2020 mammogram, 02/16/2019 ultrasound, 11/29/2018 ultrasound, 11/29/2018 mammogram, 07/11/2018 mammogram, and 07/05/2017 mammogram - [facility]. Ultrasound of the right breast was performed on the area of interest. Ortega scale images of the real-time examination were reviewed. The hypoechoic mass in the right breast at 9 o'clock posterior depth that resembled a normal lymph node on the 02/16/19 ultrasound is no longer seen. IMPRESSION: BENIGN There is no sonographic evidence of malignancy. Return to annual mammogram screening schedule is recommended. This exam was interpreted at Station ID: [id number]. Electronically Signed By: Kyleigh leos/:03/21/2020 16:11:22 letter sent: Normal Exam Ultrasound BI-RADS: 2 Benign
--- NOTE | 2020-03-21 | DI.MG.S_ITS ---
BILATERAL DIGITAL DIAGNOSTIC MAMMOGRAM 3D/2D SHORT-TERM FOLLOW-UP: 03/21/2020 CLINICAL: Patient returns for 6 month follow up of right breast, due for bilateral exam. Comparison is made to exams dated: 11/29/2018 mammogram, 07/11/2018 mammogram, and 07/05/2017 mammogram - [facility]. The tissue of both breasts is extremely dense, which lowers the sensitivity of mammography. No significant masses, calcifications, or other findings are seen in either breast. IMPRESSION: INCOMPLETE: NEEDS ADDITIONAL IMAGING EVALUATION A targeted ultrasound of the right breast is recommended to evaluate the 0.8 cm x 0.2 cm x 0.5 cm oval mass with a circumscribed margin in the right breast at 9 o'clock posterior depth seen on the prior ultrasound and will be performed immediately following this exam. This exam was interpreted at Station ID: [id number]. NOTE: For mammograms, a report in lay terms will be sent to the patient. Approximately 15% of breast malignancies will not be visualized mammographically. In the management of a palpable breast mass, a negative mammogram must not discourage biopsy of a clinically suspicious lesion. Electronically Signed By: Kyleigh Otero M.D. lk/:03/21/2020 15:05:25 ACR BI-RADS Category 0: Incomplete [id number]
== END ==
PROVIDERS: Family Provider Internal Medicine; PCP Internal Medicine; Referring Provider Internal Medicine; Visit Provider Obstetrics & Gynecology
DX: R92.8 Other abnormal and inconclusive findings on diagnostic imaging of breast (principal); N63.10 Unspecified lump in the right breast, unspecified quadrant
CPT/HCPCS: 76642; 77066; G0279

== ENCOUNTER → 2020-03-25 13:18 | Outpatient (CLI) | payer MEDICARE, BC, SELFPAY ==
[2020-03-25 13:55] LABS: Add Manual Diff / Slide Review NO; Basophils Absolute Auto 100 /uL (0-100); Basophils Percent Auto 0.9 % (0-2); Eosinophils Absolute Auto 400 /uL (0-450); Eosinophils Percent Auto 7.7 % (2-4); Hemoglobin 12.7 g/dL (12.0-16.0); Lymphocytes Absolute Auto 1200 /uL (1100-4500); Lymphocytes Percent Auto 22.5 % (25-40); Mean Corpuscular HGB Conc 32.5 % (30-36); Mean Corpuscular Hemoglobin 31.1 PG (26-34); Mean Corpuscular Volume 95.9 fL (80-100); Monocytes Absolute Auto 600 /uL (0-900); Monocytes Percent Auto 10.7 % (3-14); Neutrophils Absolute Auto 3200 /uL (1500-7000); Neutrophils Percent Auto 58.2 % (50-75); Red Blood Cell Count 4.07 X10^6/uL (4.0-5.2); Red Cell Distribution Width 14.1 % (11.6-14.8); White Blood Cell Count 5.5 X10^3/uL (4.5-11.0)
[2020-03-25 14:11] LABS: Alanine Aminotransferase 22 IU/L (<35); Albumin 4.4 g/dL (3.5-5.0); Albumin Globulin Ratio 1.4 (1.0-2.8); Alkaline Phosphatase 114 U/L (38-126); Aspartate Aminotransferase 38 IU/L (14-36); BUN Creatinine Ratio 28.6 (6-22); Bilirubin Total 0.5 mg/dL (0.2-1.3); Bilirubin Unconjugated 0.5 mg/dL (0.0-1.1); Blood Urea Nitrogen 28 mg/dL (7-17); Calcium 9.6 mg/dL (8.4-10.2); Carbon Dioxide 25 mmol/L (22-32); Chloride 104 mmol/L (98-107); Estimated Glomerular Filt Rate 54.9 mL/min (>60); Globulin 3.2 g/dL (1.7-4.1); Glucose 98 mg/dL (80-110); HEMOLYSIS < 15 (0-50); Lactate Dehydrogenase 493 U/L (313-618); Magnesium 2.1 mg/dL (1.6-2.3); Phosphorous 4.5 mg/dL (2.8-4.1); Potassium 5.2 mmol/L (3.4-5.1); Sodium 135 mmol/L (137-145); Total Protein 7.6 g/dL (6.3-8.2)
[2020-03-25 14:27] LABS: Platelet Count 222 X10^3/uL (150-400)
[2020-03-25 14:41] LABS: Cancer Antigen 125 11.6 U/mL (0-35)
== END ==
PROVIDERS: Family Provider Internal Medicine; PCP Internal Medicine; Referring Provider Nurse Practitioner Women's Health; Visit Provider Nurse Practitioner Women's Health
DX: C57.4 Malignant neoplasm of uterine adnexa, unspecified (principal); Z79.899 Other long term (current) drug therapy
CPT/HCPCS: 36415; 80069; 80076; 83615; 83735; 85025; 86304

== ENCOUNTER → 2020-04-22 12:04 | Outpatient (CLI) | payer MEDICARE, BC, SELFPAY ==
[2020-04-22 13:23] LABS: Add Manual Diff / Slide Review NO; Basophils Absolute Auto 100 /uL (0-100); Basophils Percent Auto 1.1 % (0-2); Eosinophils Absolute Auto 800 /uL (0-450); Eosinophils Percent Auto 11.1 % (2-4); Hematocrit 37.3 % (36-46); Hemoglobin 12.3 g/dL (12.0-16.0); Lymphocytes Absolute Auto 1300 /uL (1100-4500); Lymphocytes Percent Auto 18.8 % (25-40); Mean Corpuscular HGB Conc 32.9 % (30-36); Mean Corpuscular Hemoglobin 31.3 PG (26-34); Mean Corpuscular Volume 95.1 fL (80-100); Monocytes Absolute Auto 600 /uL (0-900); Monocytes Percent Auto 8.6 % (3-14); Neutrophils Absolute Auto 4100 /uL (1500-7000); Neutrophils Percent Auto 60.4 % (50-75); Platelet Count 203 X10^3/uL (150-400); Red Blood Cell Count 3.92 X10^6/uL (4.0-5.2); Red Cell Distribution Width 13.7 % (11.6-14.8); White Blood Cell Count 6.8 X10^3/uL (4.5-11.0)
[2020-04-22 14:04] LABS: Alanine Aminotransferase 22 IU/L (<35); Albumin 4.1 g/dL (3.5-5.0); Albumin Globulin Ratio 1.4 (1.0-2.8); Alkaline Phosphatase 99 U/L (38-126); Aspartate Aminotransferase 37 IU/L (14-36); BUN Creatinine Ratio 25.5 (6-22); Bilirubin Total 0.5 mg/dL (0.2-1.3); Bilirubin Unconjugated 0.4 mg/dL (0.0-1.1); Blood Urea Nitrogen 25 mg/dL (7-17); Calcium 9.5 mg/dL (8.4-10.2); Carbon Dioxide 25 mmol/L (22-32); Chloride 102 mmol/L (98-107); Estimated Glomerular Filt Rate 54.9 mL/min (>60); Globulin 2.9 g/dL (1.7-4.1); Glucose 95 mg/dL (80-110); HEMOLYSIS < 15 (0-50); Phosphorous 4.7 mg/dL (2.8-4.1); Sodium 135 mmol/L (137-145)
[2020-04-22 14:07] LABS: Potassium 5.8 mmol/L (3.4-5.1)
== END ==
PROVIDERS: Family Provider Internal Medicine; PCP Internal Medicine; Referring Provider Nurse Practitioner Women's Health; Visit Provider Nurse Practitioner Women's Health
DX: C57.4 Malignant neoplasm of uterine adnexa, unspecified (principal)
CPT/HCPCS: 36415; 80069; 80076; 83735; 85025; 86304

== ENCOUNTER → 2020-05-20 13:24 | Outpatient (CLI) | payer MEDICARE, BC, SELFPAY ==
[2020-05-20 14:19] LABS: Add Manual Diff / Slide Review NO; Basophils Absolute Auto 0 /uL (0-100); Basophils Percent Auto 0.6 % (0-2); Eosinophils Absolute Auto 200 /uL (0-450); Eosinophils Percent Auto 4.1 % (2-4); Hematocrit 39.1 % (36-46); Hemoglobin 12.8 g/dL (12.0-16.0); Lymphocytes Absolute Auto 1300 /uL (1100-4500); Lymphocytes Percent Auto 21.1 % (25-40); Mean Corpuscular HGB Conc 32.6 % (30-36); Mean Corpuscular Hemoglobin 31.2 PG (26-34); Mean Corpuscular Volume 95.6 fL (80-100); Monocytes Absolute Auto 600 /uL (0-900); Monocytes Percent Auto 9.9 % (3-14); Neutrophils Absolute Auto 3800 /uL (1500-7000); Neutrophils Percent Auto 64.3 % (50-75); Platelet Count 189 X10^3/uL (150-400); Red Cell Distribution Width 13.5 % (11.6-14.8)
[2020-05-20 14:29] LABS: Alanine Aminotransferase 22 IU/L (<35); Albumin 4.4 g/dL (3.5-5.0); Albumin Globulin Ratio 1.3 (1.0-2.8); Alkaline Phosphatase 113 U/L (38-126); Aspartate Aminotransferase 42 IU/L (14-36); BUN Creatinine Ratio 31.5 (6-22); Bilirubin Total 0.5 mg/dL (0.2-1.3); Bilirubin Unconjugated 0.5 mg/dL (0.0-1.1); Blood Urea Nitrogen 35 mg/dL (7-17); Calcium 9.4 mg/dL (8.4-10.2); Carbon Dioxide 26 mmol/L (22-32); Chloride 99 mmol/L (98-107); Estimated Glomerular Filt Rate 47.5 mL/min (>60); Globulin 3.4 g/dL (1.7-4.1); Glucose 100 mg/dL (80-110); HEMOLYSIS < 15 (0-50); Phosphorous 4.6 mg/dL (2.8-4.1); Potassium 4.4 mmol/L (3.4-5.1); Sodium 135 mmol/L (137-145); Total Protein 7.8 g/dL (6.3-8.2)
== END ==
PROVIDERS: Family Provider Internal Medicine; PCP Internal Medicine; Referring Provider Nurse Practitioner Women's Health; Visit Provider Nurse Practitioner Women's Health
DX: C57.4 Malignant neoplasm of uterine adnexa, unspecified (principal); Z79.899 Other long term (current) drug therapy
CPT/HCPCS: 36415; 80069; 80076; 83735; 85025

== ENCOUNTER → 2020-05-31 14:21 | Outpatient (CLI) | payer MEDICARE, BC, SELFPAY ==
--- NOTE | 2020-05-31 14:24 | DIET.PN ---
Dietary Progress Note Assessment: 80y F referred to nutrition for help with weight gain and regulating nutrition related lab values secondary to residential chemotherapy for metastatic ovarian cancer and BP medication which is K+ sparing. Pt has been on antantiogenic chemo for 6y receiving infusions q3w at [facility]. Pt is confused on what to eat as she needs to limit potassium and phosphorus as well as watch her renal labs while trying to maintain weight. Pt has been trying to increase weight by having high protein snacks throughout the day including: chicken (thighs), pb (Jif or Skippy), dairy (cottage cheese, yogurt, cheese such as pimento cheese). Pt reports being hungry all the time but gets full easily so has small frequent meals and snacks. Appetite is complicated by taste changes which come and go. Pt drinks 4c green tea daily as well as 64oz water. Pt is on diuretic. Usual Day: wakes 8am drinks green tea Noon: brunch- oatmeal, scrambled egg beaters, pancakes, cold cereal, cream of wheat, toast/muffin, green tea 4pm: cheese and crackers, pb and crackers, fresh fruit-peach/apple Dinner: chicken, kale, spinach, asparagus, yellow squash, small roast c potatoes and carrots or beef short ribs c roast carrots. Since our initial phone conversation, pt has started cooking c more olive oil (instead of spinach in water, spinach in olive oil) and is limiting high K+ foods of potato, avocado, banana, is being more discerning on phosphorus additives in foods. RD and patient goals include increasing body weight to 120-125# while supporting immune system by focusing consumption of root vegetables and healthy fats, continue optimizing intake to regulate nutrition related laboratory values (K+, phos, sodium, Cr, eGFR). HT: 69 WT: 115# pt was maintaining high 120s# until 9mo ago UBW: 136-142# BMI: 17.3 (underweight) Labs: (05/20/20) Na 135 L, K+ 4.4 (down from 5.8), BUN 35 H, Cr 1.11 H, eGFR 47.5 L, phos 4.6 AST 42 H Nutrition Diagnosis: 1. underweight r/t early satiety and intake of low kcal diet aeb pts food recall show regular intake of low kcal versions of foods (egg beaters, steaming veggies c/o oil, drinking water or plain green tea), pt BMI 17.3 (severe for age), pt reports 8% unintentional weight loss in 9mo. 2. altered nutrition related laboratory values r/t nutrition related knowledge deficit, drug-nutrient interactions aeb pt reports using high protein foods to attempt weight gain, pt consuming high amounts of pro, K+, and phos containing foods, pt taking residential chemotherapy infusions and K+ sparing BP medication, deranged labs as listed above. Interventions: 1. Discussed focus on starchy veggies (carrots, parsnips, beets, sweet potato, rutabaga, turnip, etc) this fall for seasonally appropriate and immune supporting foods to promote weight gain. Also focus on increasing intake of healthy fats such as nuts, beans, seeds, olive and avocado oils. 2. Focus on 50g pro per day to see if this helps renal fxn. Plant based proteins easier on kidneys and phosphorus in them is only 60% absorbed by body. EER: 2g K+, limit phos from dairy and food additives, 50g PRO goal/d Monitoring/Evaluations: RD to follow pts labs and continuously work on optimizing intake c pt
== END ==
PROVIDERS: Family Provider Internal Medicine; PCP Internal Medicine; Referring Provider Internal Medicine; Visit Provider Internal Medicine
DX: C79.60 Secondary malignant neoplasm of unspecified ovary (principal); R63.4 Abnormal weight loss; Z68.1 Body mass index [BMI] 19.9 or less, adult; Z71.3 Dietary counseling and surveillance
CPT/HCPCS: 97802

== ENCOUNTER → 2020-06-17 12:30 | Outpatient (CLI) | payer MEDICARE, BC, SELFPAY ==
[2020-06-17 12:44] LABS: Add Manual Diff / Slide Review NO; Basophils Absolute Auto 0 /uL (0-100); Basophils Percent Auto 0.6 % (0-2); Eosinophils Absolute Auto 100 /uL (0-450); Eosinophils Percent Auto 1.8 % (2-4); Hematocrit 38.9 % (36-46); Hemoglobin 13.1 g/dL (12.0-16.0); Lymphocytes Absolute Auto 1200 /uL (1100-4500); Lymphocytes Percent Auto 19.3 % (25-40); Mean Corpuscular HGB Conc 33.6 % (30-36); Mean Corpuscular Hemoglobin 31.8 PG (26-34); Mean Corpuscular Volume 94.6 fL (80-100); Monocytes Absolute Auto 500 /uL (0-900); Neutrophils Absolute Auto 4400 /uL (1500-7000); Neutrophils Percent Auto 70.3 % (50-75); Platelet Count 188 X10^3/uL (150-400); Red Blood Cell Count 4.11 X10^6/uL (4.0-5.2); Red Cell Distribution Width 13.6 % (11.6-14.8); White Blood Cell Count 6.3 X10^3/uL (4.5-11.0)
[2020-06-17 12:56] LABS: Alanine Aminotransferase 27 IU/L (<35); Albumin 4.4 g/dL (3.5-5.0); Albumin Globulin Ratio 1.3 (1.0-2.8); Alkaline Phosphatase 117 U/L (38-126); Aspartate Aminotransferase 42 IU/L (14-36); BUN Creatinine Ratio 25.9 (6-22); Bilirubin Total 0.5 mg/dL (0.2-1.3); Blood Urea Nitrogen 29 mg/dL (7-17); Calcium 9.2 mg/dL (8.4-10.2); Carbon Dioxide 26 mmol/L (22-32); Chloride 103 mmol/L (98-107); Globulin 3.5 g/dL (1.7-4.1); Glucose 101 mg/dL (80-110); HEMOLYSIS < 15 (0-50); Magnesium 2.1 mg/dL (1.6-2.3); Sodium 136 mmol/L (137-145); Total Protein 7.9 g/dL (6.3-8.2)
== END ==
PROVIDERS: Family Provider Internal Medicine; PCP Internal Medicine; Referring Provider Physician Assistant Medical; Visit Provider Physician Assistant Medical
DX: C57.00 Malignant neoplasm of unspecified fallopian tube (principal); I10 Essential (primary) hypertension
CPT/HCPCS: 36415; 80053; 83735; 85025

== ENCOUNTER → 2020-06-19 13:51 | Outpatient (CLI) | payer MEDICARE, BC, SELFPAY ==
--- NOTE | 2020-06-20 14:26 | DIET.PN ---
Addendum entered by Neda Nguyễn 07/18/20 11:10: Pt was seen on 06/19/2020 with progress note signed on 06/20/2020 Original Note: Dietary Progress Note 80y F here for RD f/u for oncology related weight loss and abnormal nutrition related laboratory values (Cr, BUN, eGFR, K+, phos). Pt happy to report 2# weight gain since last visit and both BUN and K+ are stable, but Cr and eGFR has worsened slightly. Pts oncologist has reduced her chemotherapy slightly. Pt reports trying to stick to her 50g protein limit set last visit but feels hungry and is having difficulty with knowing what to eat things that are low potassium are high protein, etc. Pt regularly eats low fat food alternatives such as Egg Beaters and margarine which do not promote weight gain. Interventions: 1. Discussed current labs c pt and to focus on a long-term regulation of labs, we only started adjusting the diet together recently and will keep adjusting based on what labs are saying and how pt is doing with meal and snack choices. 2. RD shared two kidney friendly recipe resources: [employer] and [employer] for recipes that will be compliant with her low phos, low K+, protein restricted diet. Encouraged pt to increase portion sizes of pasta and rice as well as healthy fats in her diet to promote weight gain and satiety. While this seems counter intuitive to general healthy eating, it is a renal friendly method to support her health in the short term. Monitoring/Evaluation: RD to follow pts labs and pt to schedule f/u after next set to continue optimizing diet.
== END ==
PROVIDERS: Family Provider Internal Medicine; PCP Internal Medicine; Referring Provider Internal Medicine; Visit Provider Internal Medicine
DX: R63.4 Abnormal weight loss (principal)
CPT/HCPCS: 97803

== ENCOUNTER → 2020-07-15 13:12 | Outpatient (CLI) | payer MEDICARE, BC, SELFPAY ==
[2020-07-15 13:43] LABS: Add Manual Diff / Slide Review NO; Basophils Absolute Auto 0 /uL (0-100); Basophils Percent Auto 0.6 % (0-2); Eosinophils Absolute Auto 100 /uL (0-450); Eosinophils Percent Auto 1.4 % (2-4); Hematocrit 36.8 % (36-46); Hemoglobin 12.2 g/dL (12.0-16.0); Lymphocytes Absolute Auto 1200 /uL (1100-4500); Lymphocytes Percent Auto 18.1 % (25-40); Mean Corpuscular HGB Conc 33.1 % (30-36); Mean Corpuscular Hemoglobin 31.4 PG (26-34); Mean Corpuscular Volume 94.9 fL (80-100); Monocytes Absolute Auto 700 /uL (0-900); Monocytes Percent Auto 10.1 % (3-14); Neutrophils Absolute Auto 4700 /uL (1500-7000); Neutrophils Percent Auto 69.8 % (50-75); Platelet Count 203 X10^3/uL (150-400); Red Blood Cell Count 3.87 X10^6/uL (4.0-5.2)
[2020-07-15 13:59] LABS: Alanine Aminotransferase 19 IU/L (<35); Albumin 4.1 g/dL (3.5-5.0); Albumin Globulin Ratio 1.2 (1.0-2.8); Alkaline Phosphatase 108 U/L (38-126); Aspartate Aminotransferase 36 IU/L (14-36); Bilirubin Total 0.6 mg/dL (0.2-1.3); Bilirubin Unconjugated 0.5 mg/dL (0.0-1.1); Blood Urea Nitrogen 26 mg/dL (7-17); Calcium 9.1 mg/dL (8.4-10.2); Carbon Dioxide 30 mmol/L (22-32); Chloride 103 mmol/L (98-107); Estimated Glomerular Filt Rate 51.3 mL/min (>60); Globulin 3.3 g/dL (1.7-4.1); Glucose 110 mg/dL (80-110); HEMOLYSIS < 15 (0-50); Magnesium 1.8 mg/dL (1.6-2.3); Phosphorous 4.5 mg/dL (2.8-4.1); Potassium 4.2 mmol/L (3.4-5.1); Total Protein 7.4 g/dL (6.3-8.2)
[2020-07-15 14:06] LABS: Sodium 136 mmol/L (137-145)
[2020-07-15 14:07] LABS: White Blood Cell Count 6.7 X10^3/uL (4.5-11.0)
== END ==
PROVIDERS: Family Provider Internal Medicine; PCP Internal Medicine; Referring Provider Nurse Practitioner Women's Health; Visit Provider Nurse Practitioner Women's Health
DX: C57.00 Malignant neoplasm of unspecified fallopian tube (principal); Z79.899 Other long term (current) drug therapy
CPT/HCPCS: 36415; 80069; 80076; 83735; 85025

== ENCOUNTER → 2020-08-05 14:35 | Outpatient (CLI) | payer MEDICARE, BC, SELFPAY ==
[2020-08-05 15:30] LABS: COVID19 -Nasal RAPID Negative (Negative)
== END ==
PROVIDERS: Family Provider Internal Medicine; PCP Internal Medicine; Visit Provider Internal Medicine
DX: Z01.818 Encounter for other preprocedural examination (principal)
CPT/HCPCS: 87635

== ENCOUNTER → 2020-08-26 13:50 | Outpatient (CLI) | payer MEDICARE, BC, SELFPAY ==
[2020-08-26 14:11] LABS: Add Manual Diff / Slide Review NO; Basophils Absolute Auto 100 /uL (0-100); Basophils Percent Auto 1.1 % (0-2); Eosinophils Absolute Auto 100 /uL (0-450); Eosinophils Percent Auto 1.5 % (2-4); Hematocrit 35.2 % (36-46); Hemoglobin 11.7 g/dL (12.0-16.0); Lymphocytes Absolute Auto 1400 /uL (1100-4500); Lymphocytes Percent Auto 21.1 % (25-40); Mean Corpuscular HGB Conc 33.2 % (30-36); Mean Corpuscular Hemoglobin 31.4 PG (26-34); Mean Corpuscular Volume 94.4 fL (80-100); Monocytes Absolute Auto 600 /uL (0-900); Monocytes Percent Auto 9.2 % (3-14); Neutrophils Absolute Auto 4500 /uL (1500-7000); Neutrophils Percent Auto 67.1 % (50-75); Platelet Count 190 X10^3/uL (150-400); Red Blood Cell Count 3.73 X10^6/uL (4.0-5.2); Red Cell Distribution Width 13.8 % (11.6-14.8); White Blood Cell Count 6.6 X10^3/uL (4.5-11.0)
[2020-08-26 14:26] LABS: Alanine Aminotransferase 17 IU/L (<35); Albumin Globulin Ratio 1.3 (1.0-2.8); Alkaline Phosphatase 93 U/L (38-126); Aspartate Aminotransferase 36 IU/L (14-36); Bilirubin Total 0.4 mg/dL (0.2-1.3); Bilirubin Unconjugated 0.4 mg/dL (0.0-1.1); Blood Urea Nitrogen 27 mg/dL (7-17); Calcium 8.9 mg/dL (8.4-10.2); Carbon Dioxide 27 mmol/L (22-32); Chloride 104 mmol/L (98-107); Estimated Glomerular Filt Rate 51.3 mL/min (>60); Globulin 3.1 g/dL (1.7-4.1); Glucose 104 mg/dL (80-110); HEMOLYSIS < 15 (0-50); Magnesium 1.9 mg/dL (1.6-2.3); Phosphorous 4.3 mg/dL (2.8-4.1); Potassium 4.1 mmol/L (3.4-5.1); Sodium 135 mmol/L (137-145); Total Protein 7.1 g/dL (6.3-8.2)
== END ==
PROVIDERS: Family Provider Internal Medicine; PCP Internal Medicine; Referring Provider Obstetrics & Gynecology; Visit Provider Obstetrics & Gynecology
DX: C57.00 Malignant neoplasm of unspecified fallopian tube (principal); Z79.899 Other long term (current) drug therapy
CPT/HCPCS: 36415; 80069; 80076; 83735; 85025

== ENCOUNTER → 2020-09-23 12:14 | Outpatient (CLI) | payer MEDICARE, BC, SELFPAY ==
[2020-09-23 12:53] LABS: Add Manual Diff / Slide Review NO; Basophils Absolute Auto 0 /uL (0-100); Basophils Percent Auto 0.3 % (0-2); Eosinophils Absolute Auto 100 /uL (0-450); Eosinophils Percent Auto 1.6 % (2-4); Hematocrit 36.9 % (36-46); Hemoglobin 12.4 g/dL (12.0-16.0); Lymphocytes Absolute Auto 1100 /uL (1100-4500); Lymphocytes Percent Auto 16.3 % (25-40); Mean Corpuscular HGB Conc 33.5 % (30-36); Mean Corpuscular Hemoglobin 31.8 PG (26-34); Mean Corpuscular Volume 94.9 fL (80-100); Monocytes Absolute Auto 600 /uL (0-900); Monocytes Percent Auto 8.7 % (3-14); Neutrophils Absolute Auto 5000 /uL (1500-7000); Neutrophils Percent Auto 73.1 % (50-75); Red Blood Cell Count 3.89 X10^6/uL (4.0-5.2); Red Cell Distribution Width 14.2 % (11.6-14.8); White Blood Cell Count 6.9 X10^3/uL (4.5-11.0)
[2020-09-23 13:15] LABS: Alanine Aminotransferase 20 IU/L (<35); Albumin 4.3 g/dL (3.5-5.0); Albumin Globulin Ratio 1.3 (1.0-2.8); Alkaline Phosphatase 104 U/L (38-126); Aspartate Aminotransferase 44 IU/L (14-36); BUN Creatinine Ratio 26.8 (6-22); Bilirubin Total 0.5 mg/dL (0.2-1.3); Bilirubin Unconjugated 0.5 mg/dL (0.0-1.1); Blood Urea Nitrogen 26 mg/dL (7-17); Calcium 9.3 mg/dL (8.4-10.2); Carbon Dioxide 29 mmol/L (22-32); Chloride 103 mmol/L (98-107); Estimated Glomerular Filt Rate 55.5 mL/min (>60); Globulin 3.4 g/dL (1.7-4.1); Glucose 105 mg/dL (80-110); HEMOLYSIS 20 (0-50); Magnesium 1.8 mg/dL (1.6-2.3); Phosphorous 4.8 mg/dL (2.8-4.1); Potassium 4.5 mmol/L (3.4-5.1); Sodium 137 mmol/L (137-145); Total Protein 7.7 g/dL (6.3-8.2)
[2020-09-23 13:43] LABS: Platelet Count 199 X10^3/uL (150-400)
== END ==
PROVIDERS: Family Provider Internal Medicine; PCP Internal Medicine; Referring Provider Nurse Practitioner Women's Health; Visit Provider Obstetrics & Gynecology
DX: C57.00 Malignant neoplasm of unspecified fallopian tube (principal)
CPT/HCPCS: 36415; 80069; 80076; 83735; 85025

== ENCOUNTER → 2020-10-18 15:12 | Outpatient (CLI) | payer MEDICARE, BC, SELFPAY ==
[2020-10-18 16:55] LABS: Add Manual Diff / Slide Review NO; Basophils Absolute Auto 100 /uL (0-100); Basophils Percent Auto 0.7 % (0-2); Eosinophils Absolute Auto 100 /uL (0-450); Hematocrit 40.5 % (36-46); Hemoglobin 13.3 g/dL (12.0-16.0); Lymphocytes Absolute Auto 1500 /uL (1100-4500); Lymphocytes Percent Auto 20.4 % (25-40); Mean Corpuscular HGB Conc 32.8 % (30-36); Mean Corpuscular Hemoglobin 31.4 PG (26-34); Mean Corpuscular Volume 95.8 fL (80-100); Monocytes Absolute Auto 600 /uL (0-900); Monocytes Percent Auto 7.7 % (3-14); Neutrophils Absolute Auto 5100 /uL (1500-7000); Neutrophils Percent Auto 69.2 % (50-75); Platelet Count 199 X10^3/uL (150-400); Red Blood Cell Count 4.22 X10^6/uL (4.0-5.2); Red Cell Distribution Width 13.9 % (11.6-14.8); White Blood Cell Count 7.4 X10^3/uL (4.5-11.0)
[2020-10-18 17:05] LABS: Alanine Aminotransferase 17 IU/L (<35); Albumin 4.2 g/dL (3.5-5.0); Albumin Globulin Ratio 1.2 (1.0-2.8); Alkaline Phosphatase 88 U/L (38-126); Aspartate Aminotransferase 36 IU/L (14-36); BUN Creatinine Ratio 27.9 (6-22); Bilirubin Total 0.3 mg/dL (0.2-1.3); Bilirubin Unconjugated 0.2 mg/dL (0.0-1.1); Blood Urea Nitrogen 31 mg/dL (7-17); Carbon Dioxide 30 mmol/L (22-32); Chloride 102 mmol/L (98-107); Estimated Glomerular Filt Rate 47.5 mL/min (>60); Globulin 3.5 g/dL (1.7-4.1); Glucose 119 mg/dL (80-110); HEMOLYSIS < 15 (0-50); Phosphorous 4.6 mg/dL (2.8-4.1); Potassium 4.4 mmol/L (3.4-5.1); Sodium 137 mmol/L (137-145); Total Protein 7.7 g/dL (6.3-8.2)
== END ==
PROVIDERS: Family Provider Internal Medicine; PCP Internal Medicine; Referring Provider Physician Assistant Medical; Visit Provider Physician Assistant Medical
DX: C57.00 Malignant neoplasm of unspecified fallopian tube (principal); Z79.899 Other long term (current) drug therapy
CPT/HCPCS: 36415; 80069; 80076; 83735; 85025

== ENCOUNTER → 2020-11-18 13:08 | Outpatient (CLI) | payer MEDICARE, BC, SELFPAY ==
[2020-11-18 14:20] LABS: Add Manual Diff / Slide Review NO; Basophils Absolute Auto 100 /uL (0-100); Basophils Percent Auto 0.8 % (0-2); Eosinophils Absolute Auto 100 /uL (0-450); Eosinophils Percent Auto 1.7 % (2-4); Hematocrit 37.6 % (36-46); Hemoglobin 12.5 g/dL (12.0-16.0); Lymphocytes Absolute Auto 1300 /uL (1100-4500); Lymphocytes Percent Auto 18.9 % (25-40); Mean Corpuscular HGB Conc 33.2 % (30-36); Mean Corpuscular Volume 96.2 fL (80-100); Monocytes Absolute Auto 600 /uL (0-900); Monocytes Percent Auto 8.3 % (3-14); Neutrophils Absolute Auto 4700 /uL (1500-7000); Neutrophils Percent Auto 70.3 % (50-75); Platelet Count 196 X10^3/uL (150-400); Red Cell Distribution Width 13.4 % (11.6-14.8); White Blood Cell Count 6.7 X10^3/uL (4.5-11.0)
[2020-11-18 14:57] LABS: Alanine Aminotransferase 18 IU/L (<35); Albumin 4.2 g/dL (3.5-5.0); Albumin Globulin Ratio 1.4 (1.0-2.8); Alkaline Phosphatase 102 U/L (38-126); Aspartate Aminotransferase 36 IU/L (14-36); Bilirubin Total 0.6 mg/dL (0.2-1.3); Bilirubin Unconjugated 0.6 mg/dL (0.0-1.1); Blood Urea Nitrogen 31 mg/dL (7-17); Calcium 9.3 mg/dL (8.4-10.2); Carbon Dioxide 26 mmol/L (22-32); Chloride 102 mmol/L (98-107); Estimated Glomerular Filt Rate 55.5 mL/min (>60); Globulin 3.1 g/dL (1.7-4.1); Glucose 100 mg/dL (80-110); HEMOLYSIS < 15 (0-50); Magnesium 2.1 mg/dL (1.6-2.3); Phosphorous 4.4 mg/dL (2.8-4.1); Potassium 4.6 mmol/L (3.4-5.1); Sodium 135 mmol/L (137-145); Total Protein 7.3 g/dL (6.3-8.2)
== END ==
PROVIDERS: Family Provider Internal Medicine; PCP Internal Medicine; Referring Provider Physician Assistant Medical; Visit Provider Physician Assistant Medical
DX: Z79.899 Other long term (current) drug therapy (principal)
CPT/HCPCS: 36415; 80069; 80076; 83735; 85025

== ENCOUNTER → 2020-12-06 14:45 | Outpatient (CLI) | payer MEDICARE, BC, SELFPAY ==
--- NOTE | 2020-12-06 14:56 | DI.CT.S_ITS ---
PROCEDURE: CT SINUS SCREEN WO CON INDICATIONS: Chronic pansinusitis TECHNIQUE: Noncontrast 3.0 mm axial images acquired from the frontal sinuses to the mid-sella, with coronal and sagittal reformats. For radiation dose reduction, the following was used: automated exposure control, adjustment of mA and/or kV according to patient size. COMPARISON: None. FINDINGS: Image quality: Excellent. Maxillary Sinuses: No bony remodeling or destruction. Sinuses are clear. Ethmoid Air Cells: No bony remodeling or destruction. Sinuses are clear. Sphenoid Sinuses: No bony remodeling or destruction. There is moderate mucosal thickening seen within the left sphenoid sinus. Frontal Sinuses: No bony remodeling or destruction. Sinuses are clear. Ostiomeatal Complexes: Ostiomeatal complexes are patent, yet there constitutionally narrowed, with bilateral Yusuf cells. Miscellaneous: Visualized intra-orbital contents are normal. No lisa bullosa or paradoxical turbinate curvature. No nasal septal deviation. Degenerative changes can be seen of the temporomandibular joints, with joint space narrowing with associated spur formation and irregularity, as on series 5 images 13 and 45. IMPRESSION: Focal moderate mucosal thickening seen within the left sphenoid sinus. Constitutionally narrowed ostiomeatal complexes, with bilateral Yusuf cells. Note is made of degenerative change of the temporomandibular joints. Dictated by: Steven Tran M.D. on 12/06/2020 at 14:39 Approved by: Steven Tran M.D. on 12/06/2020 at 14:41
== END ==
PROVIDERS: Family Provider Internal Medicine; PCP Internal Medicine; Referring Provider Otolaryngology; Visit Provider Otolaryngology
DX: J32.4 Chronic pansinusitis (principal); G44.89 Other headache syndrome; J34.89 Other specified disorders of nose and nasal sinuses; C57.00 Malignant neoplasm of unspecified fallopian tube; I10 Essential (primary) hypertension
CPT/HCPCS: 36415; 70486; 80069; 80076; 83735; 85025

== ENCOUNTER → 2020-12-06 14:56 | Outpatient (CLI) | payer MEDICARE, BC, SELFPAY ==
[2020-12-06 15:59] LABS: Add Manual Diff / Slide Review NO; Basophils Absolute Auto 100 /uL (0-100); Basophils Percent Auto 0.9 % (0-2); Eosinophils Absolute Auto 100 /uL (0-450); Hematocrit 38.1 % (36-46); Hemoglobin 12.5 g/dL (12.0-16.0); Lymphocytes Absolute Auto 1600 /uL (1100-4500); Lymphocytes Percent Auto 22.2 % (25-40); Mean Corpuscular HGB Conc 32.7 % (30-36); Mean Corpuscular Hemoglobin 31.4 PG (26-34); Mean Corpuscular Volume 95.8 fL (80-100); Monocytes Absolute Auto 600 /uL (0-900); Monocytes Percent Auto 7.6 % (3-14); Neutrophils Absolute Auto 4900 /uL (1500-7000); Neutrophils Percent Auto 67.3 % (50-75); Platelet Count 224 X10^3/uL (150-400); Red Blood Cell Count 3.98 X10^6/uL (4.0-5.2); Red Cell Distribution Width 13.3 % (11.6-14.8); White Blood Cell Count 7.3 X10^3/uL (4.5-11.0)
[2020-12-06 16:28] LABS: Alanine Aminotransferase 18 IU/L (<35); Albumin 4.2 g/dL (3.5-5.0); Albumin Globulin Ratio 1.2 (1.0-2.8); Alkaline Phosphatase 88 U/L (38-126); Aspartate Aminotransferase 34 IU/L (14-36); BUN Creatinine Ratio 23.7 (6-22); Bilirubin Total 0.3 mg/dL (0.2-1.3); Bilirubin Unconjugated 0.4 mg/dL (0.0-1.1); Blood Urea Nitrogen 23 mg/dL (7-17); Calcium 9.1 mg/dL (8.4-10.2); Carbon Dioxide 26 mmol/L (22-32); Chloride 105 mmol/L (98-107); Estimated Glomerular Filt Rate 55.5 mL/min (>60); Globulin 3.4 g/dL (1.7-4.1); Glucose 91 mg/dL (80-110); HEMOLYSIS < 15 (0-50); Magnesium 2.1 mg/dL (1.6-2.3); Phosphorous 3.7 mg/dL (2.8-4.1); Potassium 4.4 mmol/L (3.4-5.1); Sodium 139 mmol/L (137-145); Total Protein 7.6 g/dL (6.3-8.2)
== END ==
PROVIDERS: Family Provider Internal Medicine; PCP Internal Medicine; Referring Provider Obstetrics & Gynecology; Visit Provider Obstetrics & Gynecology
DX: C57.00 Malignant neoplasm of unspecified fallopian tube (principal); I10 Essential (primary) hypertension
CPT/HCPCS: 36415; 80069; 80076; 83735; 85025

== ENCOUNTER → 2020-12-30 10:39 | Outpatient (CLI) | payer MEDICARE, BC, SELFPAY ==
[2020-12-30 11:50] LABS: Add Manual Diff / Slide Review NO; Basophils Absolute Auto 0 /uL (0-100); Basophils Percent Auto 0.6 % (0-2); Eosinophils Absolute Auto 100 /uL (0-450); Hematocrit 37.5 % (36-46); Hemoglobin 12.3 g/dL (12.0-16.0); Lymphocytes Absolute Auto 1100 /uL (1100-4500); Lymphocytes Percent Auto 16.3 % (25-40); Mean Corpuscular HGB Conc 32.7 % (30-36); Mean Corpuscular Hemoglobin 31.4 PG (26-34); Mean Corpuscular Volume 95.9 fL (80-100); Monocytes Absolute Auto 600 /uL (0-900); Monocytes Percent Auto 8.2 % (3-14); Neutrophils Absolute Auto 5000 /uL (1500-7000); Neutrophils Percent Auto 72.9 % (50-75); Platelet Count 204 X10^3/uL (150-400); Red Blood Cell Count 3.91 X10^6/uL (4.0-5.2); Red Cell Distribution Width 13.3 % (11.6-14.8); White Blood Cell Count 6.9 X10^3/uL (4.5-11.0)
[2020-12-30 12:16] LABS: Alanine Aminotransferase 13 IU/L (<35); Albumin Globulin Ratio 1.3 (1.0-2.8); Alkaline Phosphatase 93 U/L (38-126); Aspartate Aminotransferase 31 IU/L (14-36); BUN Creatinine Ratio 33.6 (6-22); Bilirubin Total 0.4 mg/dL (0.2-1.3); Bilirubin Unconjugated 0.4 mg/dL (0.0-1.1); Blood Urea Nitrogen 36 mg/dL (7-17); Calcium 9.6 mg/dL (8.4-10.2); Carbon Dioxide 22 mmol/L (22-32); Chloride 105 mmol/L (98-107); Estimated Glomerular Filt Rate 49.6 mL/min (>60); Glucose 93 mg/dL (80-110); HEMOLYSIS < 15 (0-50); Magnesium 2.3 mg/dL (1.6-2.3); Phosphorous 4.5 mg/dL (2.8-4.1); Potassium 5.1 mmol/L (3.4-5.1); Sodium 135 mmol/L (137-145)
== END ==
PROVIDERS: Family Provider Internal Medicine; PCP Internal Medicine; Referring Provider Nurse Practitioner Women's Health; Visit Provider Nurse Practitioner Women's Health
DX: C57.00 Malignant neoplasm of unspecified fallopian tube (principal)
CPT/HCPCS: 36415; 80069; 80076; 83735; 85025

== ENCOUNTER → 2021-01-27 13:46 | Outpatient (CLI) | payer MEDICARE, BC, SELFPAY ==
[2021-01-27 14:01] LABS: Add Manual Diff / Slide Review NO; Basophils Absolute Auto 0 /uL (0-100); Basophils Percent Auto 0.8 % (0-2); Eosinophils Absolute Auto 100 /uL (0-450); Eosinophils Percent Auto 1.9 % (2-4); Hematocrit 35.6 % (36-46); Hemoglobin 11.9 g/dL (12.0-16.0); Lymphocytes Absolute Auto 1400 /uL (1100-4500); Lymphocytes Percent Auto 22.4 % (25-40); Mean Corpuscular HGB Conc 33.4 % (30-36); Mean Corpuscular Hemoglobin 32.2 PG (26-34); Mean Corpuscular Volume 96.4 fL (80-100); Monocytes Absolute Auto 500 /uL (0-900); Neutrophils Absolute Auto 4000 /uL (1500-7000); Neutrophils Percent Auto 65.9 % (50-75); Platelet Count 235 X10^3/uL (150-400); Red Blood Cell Count 3.69 X10^6/uL (4.0-5.2); White Blood Cell Count 6.1 X10^3/uL (4.5-11.0)
[2021-01-27 14:14] LABS: Alanine Aminotransferase 15 IU/L (<35); Albumin 4.3 g/dL (3.5-5.0); Albumin Globulin Ratio 1.3 (1.0-2.8); Alkaline Phosphatase 79 U/L (38-126); Aspartate Aminotransferase 32 IU/L (14-36); BUN Creatinine Ratio 28.4 (6-22); Bilirubin Total 0.4 mg/dL (0.2-1.3); Blood Urea Nitrogen 31 mg/dL (7-17); Calcium 9.1 mg/dL (8.4-10.2); Carbon Dioxide 21 mmol/L (22-32); Chloride 104 mmol/L (98-107); Estimated Glomerular Filt Rate 48.4 mL/min (>60); Globulin 3.2 g/dL (1.7-4.1); Glucose 108 mg/dL (80-110); HEMOLYSIS < 15 (0-50); Potassium 4.6 mmol/L (3.4-5.1); Sodium 134 mmol/L (137-145); Total Protein 7.5 g/dL (6.3-8.2)
== END ==
PROVIDERS: Family Provider Internal Medicine; PCP Internal Medicine; Referring Provider Obstetrics & Gynecology; Visit Provider Obstetrics & Gynecology
DX: Z79.899 Other long term (current) drug therapy (principal); C57.00 Malignant neoplasm of unspecified fallopian tube
CPT/HCPCS: 36415; 80053; 83735; 85025

== ENCOUNTER → 2021-01-30 12:14 | Outpatient (CLI) | payer MEDICARE, BC, SELFPAY ==
--- NOTE | 2021-01-30 12:16 | DI.MRI.S_ITS ---
PROCEDURE: MR LUMBAR SPINE WO CON INDICATIONS: Spinal stenosis, lumbar region with neurogenic claudication. TECHNIQUE: Noncontrast sagittal T1 spin echo and T2 fast echo, sagittal STIR, axial T1 and T2 fast spin echo through the lumbar spine. In cases with scoliosis, additional coronal T2 fast spin echo may be performed. COMPARISON: [facility], MR, L-SPINE WITHOUT CONTRAST, 07/17/2011, 6:57. [facility], MR, L-SPINE WITHOUT CONTRAST, 07/12/2007, 20:46. [facility], CT, CT CHEST ABDOMEN PELVIS WITH CONTRAST, 01/10/2021, 13:38. [facility], MR, L-SPINE WITHOUT CONTRAST, 02/01/2013, 7:55. [facility], CR, XR LUMBAR SPINE WITH OLBIQUES PLUS FLEXION EXTENSION, 01/20/2021, 15:27. FINDINGS: Image quality: This examination is limited by involuntary motion artifact. Alignment and Curvature: There is at least moderate dextroconvex scoliosis. Mild grade 1 anterolisthesis is seen at the L5-S1 level. Bone Marrow: Marrow is of normal overall signal. No acute vertebral body compression fractures. Spinal Cord: Conus medullaris terminates at the L1 level. Visualized cord demonstrates normal signal and size. Paraspinous Soft Tissues: No paravertebral masses. T12-L1: No significant abnormality is seen. L1-L2: The disc height and disk signal are well-preserved. Mild generalized disc bulge is seen. Mild to moderate facet hypertrophy is seen. Moderate bilateral neural foraminal narrowing is seen. No significant central canal narrowing is seen. These imaging findings have progressed compared to the prior study. L2-L3: There is at least moderate loss of disc height and disc signal on the left side. Reactive marrow endplate changes are seen, which are hyperintense on T1-weighted and T2-weighted imaging and most consistent with fatty metaplasia (Modic type II changes). Moderate disc bulge is seen, which is eccentric to the left. There is at least moderate facet hypertrophy seen. There is hdmx-nm-[id number] right-sided and moderate left-sided neural foraminal narrowing seen. Mild central canal narrowing is seen. These imaging findings have progressed compared to the prior study. L3-L4: There is at least moderate loss of disc height and disc signal seen on the left side. At least moderate disc bulge is seen, which is eccentric to the left. There is a central/left disc protrusion. At least moderate facet hypertrophy can be seen. There is moderate to severe bilateral neural foraminal narrowing seen. There is a degree of compression seen upon the exiting nerve roots. These imaging findings have progressed compared to the prior study. L4-L5: On the left, there are bilateral pedicle screws seen, with associated susceptibility artifact. There is a vertical fixation ester. A disc spacer is seen. Moderate loss of disc height is seen. Loss of disc signal is seen. There is at least moderate facet hypertrophy seen. There is pnva-hm-cegwqdyw right-sided and no significant left-sided neural foraminal narrowing seen. No significant central canal narrowing is seen. The degree of central canal narrowing is improved compared to 2013. L5-S1: The disc height is well-preserved. Loss of disc signal is seen at this level. Moderate disc bulge is seen, which is eccentric to the right. There is moderate to prominent facet hypertrophy seen at this level. There is moderate to severe right-sided and mild left-sided neural foraminal narrowing seen. There is a degree of compression seen upon the exiting right L5 nerve root. Mild central canal narrowing is seen. These degenerative changes are worse than in two thousand thirteen. 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 IMPRESSION: Unremarkable L4-5 postoperative hardware. There is improvement in the degree of central canal narrowing at L4-L5 compared to 2013. Dextroconvex scoliosis, with multiple levels of relatively prominent degenerative change. The degenerative changes have overall progressed compared to 2013. Dictated by: Steven Tran M.D. on 01/30/2021 at 12:52 Approved by: Steven Tran M.D. on 01/30/2021 at 12:59
== END ==
PROVIDERS: Family Provider Internal Medicine; PCP Internal Medicine; Referring Provider Physical Medicine & Rehabilitation Pain Medicine; Visit Provider Physical Medicine & Rehabilitation Pain Medicine
DX: M48.062 Spinal stenosis, lumbar region with neurogenic claudication (principal); M47.816 Spondylosis without myelopathy or radiculopathy, lumbar region; M47.817 Spondylosis without myelopathy or radiculopathy, lumbosacral region; M41.86 Other forms of scoliosis, lumbar region; Z98.1 Arthrodesis status
CPT/HCPCS: 72148

== ENCOUNTER → 2021-02-11 13:45 | Outpatient (CLI) | payer MEDICARE, BC, SELFPAY ==
--- NOTE | 2021-02-11 | DI.MRI.S_ITS ---
PROCEDURE: MR HEAD/BRAIN WO CON INDICATIONS: Headache, unspecified TECHNIQUE: Non-contrast axial T1 spin echo, axial T2 fast spin echo, sagittal and axial FLAIR, coronal T2 fast spin echo, axial gradient echo, axial diffusion and ADC through the brain. COMPARISON: None. FINDINGS: Image quality: Excellent. CSF spaces: Ventricles appear symmetric in size and shape. Basal cisterns are patent. No extra-axial fluid collections. Brain: No intracranial bleeds or mass effects. There is cerebral volume loss for age. There are periventricular and deep white matter chronic small vessel ischemic changes. Brainstem appears normal. Diffusion-weighted images show no acute ischemic insults. No chronic ischemic insults. Normal intravascular flow voids are present. Skull and face: Calvarial bone marrow is normal in signal. Orbits are normal. Sinuses: Sinuses and mastoids are clear. IMPRESSION: Minimal microvascular atherosclerotic change in the deep white matter of each hemisphere. No evidence of mass, ventriculomegaly, or trauma. A definite source of non-specific headache symptoms is not seen. Dictated by: Tim Hall M.D. on 02/11/2021 at 15:08 Approved by: iTm Hall M.D. on 02/11/2021 at 15:09
== END ==
PROVIDERS: Family Provider Internal Medicine; PCP Internal Medicine; Referring Provider Psychiatry & Neurology Neurology; Visit Provider Psychiatry & Neurology Neurology
DX: R51.9 Headache, unspecified (principal)
CPT/HCPCS: 70551

== ENCOUNTER → 2021-02-24 12:03 | Outpatient (CLI) | payer MEDICARE, BC, SELFPAY ==
[2021-02-24 12:57] LABS: Add Manual Diff / Slide Review NO; Basophils Absolute Auto 100 /uL (0-100); Basophils Percent Auto 0.9 % (0-2); Eosinophils Absolute Auto 100 /uL (0-450); Eosinophils Percent Auto 2.2 % (2-4); Hemoglobin 11.7 g/dL (12.0-16.0); Lymphocytes Absolute Auto 900 /uL (1100-4500); Lymphocytes Percent Auto 14.3 % (25-40); Mean Corpuscular HGB Conc 33.4 % (30-36); Mean Corpuscular Hemoglobin 32.4 PG (26-34); Mean Corpuscular Volume 96.9 fL (80-100); Monocytes Absolute Auto 600 /uL (0-900); Monocytes Percent Auto 9.3 % (3-14); Neutrophils Absolute Auto 4800 /uL (1500-7000); Neutrophils Percent Auto 73.3 % (50-75); Platelet Count 210 X10^3/uL (150-400); Red Blood Cell Count 3.62 X10^6/uL (4.0-5.2); Red Cell Distribution Width 13.3 % (11.6-14.8); White Blood Cell Count 6.5 X10^3/uL (4.5-11.0)
[2021-02-24 13:04] LABS: Alanine Aminotransferase 18 IU/L (<35); Albumin Globulin Ratio 1.2 (1.0-2.8); Alkaline Phosphatase 88 U/L (38-126); Aspartate Aminotransferase 35 IU/L (14-36); BUN Creatinine Ratio 33.3 (6-22); Bilirubin Total 0.5 mg/dL (0.2-1.3); Blood Urea Nitrogen 34 mg/dL (7-17); Calcium 9.1 mg/dL (8.4-10.2); Carbon Dioxide 25 mmol/L (22-32); Chloride 102 mmol/L (98-107); Estimated Glomerular Filt Rate 52.3 mL/min (>60); Globulin 3.3 g/dL (1.7-4.1); Glucose 98 mg/dL (80-110); HEMOLYSIS < 15 (0-50); Magnesium 2.3 mg/dL (1.6-2.3); Sodium 134 mmol/L (137-145); Total Protein 7.3 g/dL (6.3-8.2)
[2021-02-24 13:15] LABS: Erythrocyte Sedimentation Rate 23 MM/HR (0-20)
== END ==
PROVIDERS: Family Provider Internal Medicine; PCP Internal Medicine; Referring Provider Psychiatry & Neurology Neurology; Visit Provider Psychiatry & Neurology Neurology
DX: R51.9 Headache, unspecified (principal); Z79.899 Other long term (current) drug therapy
CPT/HCPCS: 36415; 80053; 83735; 85025; 85651

== ENCOUNTER → 2021-03-29 14:46 | Outpatient (CLI) | payer MEDICARE, BC, SELFPAY ==
--- NOTE | 2021-03-29 | DI.MG.S_ITS ---
BILATERAL DIGITAL SCREENING MAMMOGRAM 3D/2D WITH CAD: 03/29/2021 CLINICAL: Routine screening. Comparison is made to exams dated: 03/21/2020 mammogram, 07/11/2018 mammogram, and 07/05/2017 mammogram - [facility]. The tissue of both breasts is extremely dense, which lowers the sensitivity of mammography. Current study was also evaluated with a Computer Aided Detection (CAD) system. No significant masses, calcifications, or other findings are seen in either breast. There has been no significant interval change. IMPRESSION: NEGATIVE There is no mammographic evidence of malignancy. A 1 year screening mammogram is recommended. This exam was interpreted at Station ID: [id number]. NOTE: For mammograms, a report in lay terms will be sent to the patient. Approximately 15% of breast malignancies will not be visualized mammographically. In the management of a palpable breast mass, a negative mammogram must not discourage biopsy of a clinically suspicious lesion. Electronically Signed By: Binu Ordonez M.D., jr/jossie:03/31/2021 09:37:46 letter sent: Normal Exam ACR BI-RADS Category 1: Negative [id number]
== END ==
PROVIDERS: Family Provider Internal Medicine; PCP Internal Medicine; Referring Provider Internal Medicine; Visit Provider Internal Medicine
DX: Z12.31 Encounter for screening mammogram for malignant neoplasm of breast (principal)
CPT/HCPCS: 77063; 77067

== ENCOUNTER → 2021-03-31 12:14 | Outpatient (CLI) | payer MEDICARE, BC, SELFPAY ==
[2021-03-31 13:44] LABS: Add Manual Diff / Slide Review NO; Basophils Absolute Auto 0 /uL (0-100); Basophils Percent Auto 0.4 % (0-2); Eosinophils Absolute Auto 200 /uL (0-450); Eosinophils Percent Auto 3.6 % (2-4); Hematocrit 35.9 % (36-46); Hemoglobin 11.8 g/dL (12.0-16.0); Lymphocytes Absolute Auto 1200 /uL (1100-4500); Lymphocytes Percent Auto 18.3 % (25-40); Mean Corpuscular HGB Conc 32.8 % (30-36); Mean Corpuscular Hemoglobin 31.7 PG (26-34); Mean Corpuscular Volume 96.7 fL (80-100); Monocytes Absolute Auto 800 /uL (0-900); Monocytes Percent Auto 12.2 % (3-14); Neutrophils Absolute Auto 4300 /uL (1500-7000); Neutrophils Percent Auto 65.5 % (50-75); Platelet Count 238 X10^3/uL (150-400); Red Blood Cell Count 3.71 X10^6/uL (4.0-5.2); Red Cell Distribution Width 13.1 % (11.6-14.8); White Blood Cell Count 6.5 X10^3/uL (4.5-11.0)
[2021-03-31 14:20] LABS: Alanine Aminotransferase 20 IU/L (<35); Albumin Globulin Ratio 1.1 (1.0-2.8); Alkaline Phosphatase 96 U/L (38-126); Aspartate Aminotransferase 38 IU/L (14-36); BUN Creatinine Ratio 29.4 (6-22); Bilirubin Total 0.3 mg/dL (0.2-1.3); Blood Urea Nitrogen 30 mg/dL (7-17); Calcium 9.1 mg/dL (8.4-10.2); Carbon Dioxide 23 mmol/L (22-32); Chloride 100 mmol/L (98-107); Estimated Glomerular Filt Rate 52.3 mL/min (>60); Globulin 3.5 g/dL (1.7-4.1); Glucose 100 mg/dL (80-110); HEMOLYSIS < 15 (0-50); Magnesium 2.2 mg/dL (1.6-2.3); Potassium 4.8 mmol/L (3.4-5.1); Sodium 131 mmol/L (137-145); Total Protein 7.5 g/dL (6.3-8.2)
== END ==
PROVIDERS: Family Provider Internal Medicine; PCP Internal Medicine; Referring Provider Physician Assistant Medical; Visit Provider Physician Assistant Medical
DX: C57.00 Malignant neoplasm of unspecified fallopian tube (principal); Z79.899 Other long term (current) drug therapy
CPT/HCPCS: 36415; 80053; 83735; 85025

== ENCOUNTER → 2021-05-15 13:52 | Outpatient (CLI) | payer MEDICARE, BC, SELFPAY ==
[2021-05-15 15:37] LABS: Add Manual Diff / Slide Review NO; Basophils Absolute Auto 0 /uL (0-100); Basophils Percent Auto 0.3 % (0-2); Eosinophils Absolute Auto 0 /uL (0-450); Eosinophils Percent Auto 0.2 % (2-4); Hematocrit 37.3 % (36-46); Hemoglobin 12.1 g/dL (12.0-16.0); Lymphocytes Absolute Auto 1600 /uL (1100-4500); Lymphocytes Percent Auto 12.5 % (25-40); Mean Corpuscular HGB Conc 32.4 % (30-36); Mean Corpuscular Hemoglobin 31.4 PG (26-34); Mean Corpuscular Volume 96.8 fL (80-100); Monocytes Absolute Auto 1300 /uL (0-900); Monocytes Percent Auto 10.7 % (3-14); Neutrophils Absolute Auto 9500 /uL (1500-7000); Neutrophils Percent Auto 76.3 % (50-75); Platelet Count 271 X10^3/uL (150-400); Red Blood Cell Count 3.85 X10^6/uL (4.0-5.2); Red Cell Distribution Width 12.9 % (11.6-14.8); White Blood Cell Count 12.4 X10^3/uL (4.5-11.0)
[2021-05-15 15:59] LABS: Alanine Aminotransferase 21 IU/L (<35); Albumin 4.1 g/dL (3.5-5.0); Albumin Globulin Ratio 1.4 (1.0-2.8); Alkaline Phosphatase 87 U/L (38-126); Aspartate Aminotransferase 29 IU/L (14-36); BUN Creatinine Ratio 41.2 (6-22); Bilirubin Total 0.4 mg/dL (0.2-1.3); Blood Urea Nitrogen 40 mg/dL (7-17); Calcium 8.8 mg/dL (8.4-10.2); Carbon Dioxide 24 mmol/L (22-32); Chloride 100 mmol/L (98-107); Estimated Glomerular Filt Rate 55.4 mL/min (>60); Glucose 90 mg/dL (80-110); HEMOLYSIS < 15 (0-50); Magnesium 2.2 mg/dL (1.6-2.3); Potassium 4.5 mmol/L (3.4-5.1); Sodium 132 mmol/L (137-145); Total Protein 7.1 g/dL (6.3-8.2)
== END ==
PROVIDERS: Family Provider Internal Medicine; PCP Internal Medicine; Referring Provider Obstetrics & Gynecology; Visit Provider Obstetrics & Gynecology
DX: C57.00 Malignant neoplasm of unspecified fallopian tube (principal); Z79.899 Other long term (current) drug therapy
CPT/HCPCS: 36415; 80053; 83735; 85025

== ENCOUNTER → 2021-05-20 13:59 | Outpatient (CLI) | payer MEDICARE, BC, SELFPAY ==
[2021-05-20 14:31] LABS: COVID19 -Nasal RAPID Negative (Negative)
== END ==
PROVIDERS: Family Provider Internal Medicine; PCP Internal Medicine; Referring Provider Surgery; Visit Provider Surgery
DX: Z01.812 Encounter for preprocedural laboratory examination (principal); Z20.822 Contact with and (suspected) exposure to COVID-19
CPT/HCPCS: 87635

== ENCOUNTER 2021-05-21 07:42 | Day surgery (SDC) | payer MEDICARE, BC, SELFPAY ==
[2021-05-14 13:47] VITALS: BMI 17.4
[2021-05-21] VITALS (17 sets, daily range): BP systolic 122–169; BP diastolic 58–92; PULSE 59–74; RESP 11–18; TEMP 35.9–37; O2SAT 97–100; BMI 17.4
[2021-05-21] MEDS: ACETAMINOPHEN 325 MG TABLET 975 MG PO (08:28)
[2021-05-21] MEDS: GABAPENTIN 300 MG CAPSULE PO (08:29)
[2021-05-21] MEDS: LACTATED RINGERS 1,000 ML 42 ML IV ×2 (08:31→10:28)
--- NOTE | 2021-05-21 08:34 | PM.PREOP ---
Pre-operative Note Interval Note History & Physical reviewed/Exam performed by Physician: Yes Changes to H&P: No
[2021-05-21] MEDS: CEFAZOLIN 1 GM VIAL 2 GM IV (09:07)
--- NOTE | 2021-05-21 09:46 | SUR.OPER ---
Supine on padded OR bed, head on pillow, arms secured on padded arm boards at <90 degrees abduction, gel pads under both elbows and forearms, legs uncrossed, safety belt at thigh, tape over blanket over lower legs.
[2021-05-21] MEDS: BUPIVACAINE 0.5% (PF) VIAL 30 ML INJ (10:06)
[2021-05-21] MEDS: BUPIVACAINE LIPOSOME 266 MG/20 ML VIAL INJ (10:07)
--- NOTE | 2021-05-21 11:54 | PM.OP.1 ---
Operative Date/Time/Diagnoses Date of procedure: 05/21/21 Time of procedure: 11:55 Pre-op diagnosis: Incisional hernia Post-op diagnosis: same Procedure & Clinicians Procedure: Open ventral hernia retro rectus with mesh Same procedure as scheduled: Yes Indications: Infra umbilical incisional hernia containing bowel Surgeon: Anurag Lewis Click Yes if Unassisted: Yes Anesthesia Type: General Operative Notes Findings: 15 by 8 cm incisional hernia defect inferior to the umbilicus containing transverse colon Specimen(s): none sent Estimated Blood Loss (mL): 50 Procedure in detail: Patient was brought to the operating room placed supine on the table. Bilateral lower extremity compression devices were applied. They received 2 g of Ancef prior to skin incision. Prepped and draped in sterile fashion. Time-out was performed. A midline incision was made inferior to the umbilicus with a knife. The subcutaneous tissue was divided to expose the midline fascia. The fascia was elevated and sharply incised. The abdomen was entered atrumatically. There were minimal intra-abdominal adhesions, the hernia sac contained the transverse colon which was freed. With the viscera mobile, a towel was then placed over the visceral content to protect it out of harms way. The retromuscular space was entered by incising the posterior rectus sheath approximately 1 cm from its edge. The retromuscular plane was developed using electrocautery with care to protect the neurovascular structures. The retrorectus space was developed in the same fashion on the contralateral side. The spaces were then connected superiorly near the umbilicus and inferiorly near the pubis. The peritoneum was then closed in interrupted fashion with with running 2-0 vicryl. The peritoneum was tight and attenuated but because it was so thin and I was concerned that she may develop rent in it I decided to use mesh with anti adhesive on its posterior surface. We did not have a single piece of mesh of this fashion available so two 8 cm circular pieces of mesh were joined end to end and placed into the retro rectus space. Each mesh was anchored with interrupted Ethibond in transfascial fashion circumferentially using the cornelia domingo device such that the mesh lay under physiologic tension. A 10 [place] flat drain was placed anterior to the mesh and behind the anterior sheath brought out through the skin. The anterior sheath/ linea alba was then closed in interrupted fashion with Ethibond without tension. I laid a second piece of soft macroporus mesh over the anterior sheath for additional support which was tacked in place with interupted Ethibond to the anterior sheath. Hemostasis was checked. The subcutaneous tissue was then reapproximated using Vicryl skin closed with running 4-0 Monocryl followed by the application of Dermabond. Patient emerged from anesthesia was extubated and transferred to recovery room in stable condition. Complications: none Post-operative Condition: stable Disposition: observation
--- NOTE | 2021-05-21 12:56 | PM.PROC.1 ---
Procedures Date/Time Date of procedure: 05/21/21 Time of procedure: 11:40 Nerve Block Time out performed: Yes Local anesthetic used: bupivacaine 0.25% Location of anesthetic used: bilateral TAP Amount of anesthesia used (mL): 30 Nerve blocks: other (transverse abdominus plane) Procedure successful: Yes Patient tolerated procedure: well and no complications Complications: none Additional comments: Bilateral TAP block performed for post-op pain control at surgeon request. Patient was positioned with IV, O2, monitors and rescue meds available. Prepped and timeout performed. Target identified with continuous ultrasound guidance. 15 mL of bupivicaine 0.25% was injected in the space with intermittent aspiration and injection. No blood, no paresthesias, no acute complications. Ultrasound pic attached.
--- NOTE | 2021-05-21 13:16 | PT-IP ANOTE ---
checked with nurse and pt just arrived from PACU ~ 5 min ago and will not be ready for PT eval. will f/u tomorrow.
--- NOTE | 2021-05-21 13:52 | PC.NURSE ---
Patient to room 220. She has an incision to her lower abdomen that is cdi with dressing in place, and abdominal binder over. Patient also has a wade drain with bloody drainage in bulb. She denies pain, report from [employer] states that she had a tap block. She will be on ivf and patient states that she just wants to sleep for 1 week. She has a hx of fallopian tube cancer with hysterectomy and states that she goes to chemotherapy every 3 weeks. Patient has a portacath present in her r.upper chest. Betsy also has 3+ pitting edema to her l.lower extremity, she states that they had to remove 32 lymphnodes and biopsy them, this left her with lymph edema. Patient usually wears a compression stockings. She has bilateral scds on and states that they feel good to her.
[2021-05-21] MEDS: LACTATED RINGERS 1,000 ML 100 ML IV (14:23)
[2021-05-21] MEDS: LOSARTAN 50 MG TABLET PO (20:16)
[2021-05-21] MEDS: TRIMETH/SULFA 160/800 (DS) TABLET 1 TAB PO (20:16)
[2021-05-21] MEDS: carvediloL 3.125 MG TABLET 6.25 MG PO (20:16)
[2021-05-22] VITALS (7 sets, daily range): BP systolic 142–179; BP diastolic 79–89; PULSE 66–89; RESP 16; TEMP 35.9–36; O2SAT 97–98
[2021-05-22] MEDS: ACETAMINOPHEN 325 MG TABLET 650 MG PO (06:37)
[2021-05-22] MEDS: hydroCHLOROthiazide 25 MG TABLET 12.5 MG PO (08:29)
[2021-05-22] MEDS: TRIMETH/SULFA 160/800 (DS) TABLET 1 TAB PO (08:29)
[2021-05-22] MEDS: LOSARTAN 50 MG TABLET PO (08:29)
[2021-05-22] MEDS: carvediloL 12.5 MG TABLET PO (08:30)
[2021-05-22] MEDS: AMLODIPINE 5 MG TABLET PO (08:30)
--- NOTE | 2021-05-22 10:47 | PT.IIE ---
Current Diagnoses Ventral hernia without obstruction or gangrene (05/21/21) Surgery Performed Operation Date: 05/21/21 08:45 Actual Procedures p Open Ventral Hernia Repair(Not Applicable) - Anurag Lewis MD Surgical History (Last Updated 05/14/21 @ 13:50 by Nery Garcia, RN) History of partial pancreatectomy S/P total abdominal hysterectomy and bilateral salpingo-oophorectomy (~2013) Status post exploratory laparotomy Status post splenectomy (2015) Medical History (Last Updated 05/14/21 @ 14:10 by Nery Garcia RN) Arthritis Essential hypertension Fallopian tube carcinoma Ovarian cancer Pulmonary nodule Scoliosis Physical Therapy Inpatient Evaluation/Re-Eval M1 PT/OT-IP Prior Functional Status Start: 05/22/21 13:16 Freq: NEEDED Status: Active Protocol: Document 05/22/21 10:47 AB (Rec: 05/22/21 13:27 AB [id number]) Medical Review Prior Functional Status Medical History Reviewed Yes Communication able to make needs known Mobility and Gait pt stated that she is modified indepenedent with all mobilities and ambulation without AD but usually furniture cruises; stated that she has bad scoliosis but is very careful when moving Social History Household Members spouse Living Arrangements House Number of Floors (Floors) One Floor Number of Stairs To Enter/Railing? 3 platform steps to enter the house Home Environment High Toilet,Walk in Shower Home Equipment Front Wheel Walker,Straight Cane,Shower Seat with Backrest ,Hand Held Shower,Grab Bars Near Toilet,Grab Bars In Shower Additional Social History Comment pt stated that her spouse has a CVA and cannot assist her. 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 PT-IP Current Condition Start: 05/22/21 13:16 Freq: NEEDED Status: Active Protocol: Document 05/22/21 10:47 AB (Rec: 05/22/21 13:27 AB [email or web address]) Physical Therapy Current Condition Current Condition Evaluation Date 05/22/21 Treatment Diagnosis s/p hernia repair; difficulty in walking Onset Date 05/21/21 Precautions Abdominal Surgery Precautions Log Roll,Lifting Restrictions, Gait Belt above Incisional Area M3 PT-IP Subjective Start: 05/22/21 13:16 Freq: NEEDED Status: Active Protocol: Document 05/22/21 10:47 AB (Rec: 05/22/21 13:27 [id number]) Subjective Physical Therapy Visit Type Type Initial Evaluation Visit Start Time 10:47 Visit Stop Time 11:09 Total Visit Minutes 22 Number of SYSTEMS ARCHITECT Visits 0 Physical Therapy Visit Comments Patient Comments pt is agreeable to do PT Therapy Pain Assessment Pain When Pain Assessed At Rest Pain Present Pain Present Pain Reported Location abdomen Intensity 3 Scale Used Numeric (0 - 10) Pain Management Techniques Distraction,Modification of Treatment,Re-positioning, Timing of Activity with Medications M4 PT-IP Mobility and Gait Start: 05/22/21 13:16 Freq: NEEDED Status: Active Protocol: Document 05/22/21 10:47 AB (Rec: 05/22/21 13:27 [email or web address]) PT-Bed Mobility Assessment Rolling Type of Rolling Log Rolling Level of Assist Standby Assistance Supine to Sit Supine to Sit Standby Assistance PT-Transfer Assessment Sit to and From Stand Sit to and from Stand Standby Assistance Equipment Transfer Assistive Device None,Gait Belt,Front Wheeled Walker Orthotic/Prosthetic Devices or Brace: No Transfers Transfer Destination Toilet Transfer Technique ambulated Transfer Ability Level of Assist Standby Assistance,Contact Guard Assistance,1 Person Assistance,Use of Upper Extremities Comments Mobility Comments pt is aware of her abdominal precautions and log roll bed mobility. able to complete log roll SBA but with cues needed. pt completed sit to stand SBA and ambulated in room without AD SBA to CGA. pt tends to hold on to the wall for support. pt agreed to use FWW. ambulated ~ 40 ft using FWW SBA. completed up/ down platform step x 2 reps using FWW SBA to CGA. pt ambulated back to the room and requested to use the toilet. Left pt using the toilet. informed nurse. Gait Assessment Gait Gait Assistance Required: Standby Assistance,Contact Guard Assist Distance (Feet) 40 Able to Maintain Weight Bearing Status Yes During Gait Assistive Devices Assistive Device None,Gait Belt,Front Wheeled Walker Orthotic/Prosthetic Devices or Brace: No Gait Deviations General Gait Pattern Antalgic,Decreased Stride Length,Decreased Feet Clearance Factors Limiting Gait Function Factors Limiting Gait Function Decreased Activity Tolerance, Decreased Strength,Limited Range of Motion,Pain Stair Climbing Assessment Evaluation Level of Assist On Stairs Standby Assistance,1 Person Assistance Devices Stair Climbing Assistive Devices Front Wheel Walker Technique/Endurance Stair Climbing Direction Ascend and Descend Stair Climbing Technique Step to Step Number of Steps Climbed 1 Query Text: Stair Climbing Set # Repetitions (reps) 2 PT-Balance Assessment Sitting Balance and Reactions Static Sitting Balance Ability Normal Dynamic Sitting Balance Ability Good Standing Balance and Reactions Static Standing Balance Ability Fair Dynamic Standing Balance Ability Fair Device Used without AD M5 PT-IP Objective Assessments Start: 05/22/21 13:16 Freq: NEEDED Status: Active Protocol: Document 05/22/21 10:47 AB (Rec: 05/22/21 13:27 [facility] Orientation Orientation/Cognition Level of Alertness Alert Orientation Name,Place,Situation Language Function Ability No Deficits Noted Safety Awareness Understands Safety Issues Gross Range of Motion Lower Extremity ROM Assessment Within Functional Limits Strength Lower Extremity Strength Assessment Within Functional Limits Coordination Assessment Gross Coordination Gross Coordination WNL Sensation Assessment Sensation Gross Sensation WNL Muscle Tone Muscle Tone WNL Yes M6 PT-IP Treatment Start: 05/22/21 13:16 Freq: NEEDED Status: Active Protocol: Document 05/22/21 10:47 AB (Rec: 05/22/21 13:27 [facility] Physical Therapy Treatment Education Education Provided Precautions,Safety M7 PT-IP Assessment and Plan Start: 05/22/21 13:16 Freq: NEEDED Status: Active Protocol: Document 05/22/21 10:47 AB (Rec: 05/22/21 13:27 [facility]) PT Summary Assessment and Plan Potential Rehabilitation Potential Good Status of Condition at Evaluation Stable Summary Impairments Pain,ROM,Strength,Balance,Bed Mobility,Transfers,Gait, Activity Tolerance Assessment Summary pt requiring SBA with mobility and CGA with ambulation without AD and recommending use of FWW at this time. Pt agreed. pt has 29/03 caregiver available at home and plans to go home with assist. pt may go home when medically stable. Goals Bed Mobility Goal Independent Transfer Goal Independent Gait Goal Independent Gait Distance 150 Other Goals up/down 3 platform steps without AD SBA Days to Meet Goals 5 Frequency of Treatment Frequency Of Treatment Once a Day Treatment Plan Physical Therapy Treatment Plan Bed Mobility Training,Transfer Training,Gait Training, Therapeutic Exercise,Balance Retraining,Post Op Education, Discharge Planning,Hot or Cold Pack,Neuromuscular Re-ed, Coordination Retraining,Manual Therapy Precautions Abdominal Surgery Precautions Log Roll,Lifting Restrictions, Gait Belt above Incisional Area Recommendations To Nursing Amount of Assist Needed Standby Assistance Discharge Recommendations PT Discharge Recommendations Home with Assistance Transportation Needs at Discharge Private Vehicle
--- NOTE | 2021-05-22 11:46 | CM.DANOTE ---
DCP: Case received, EMR reviewed and met with patient. Introduced self and role. Was able to obtain information regarding patient's baseline activity status prior to hospitalization. DCP assessment competed with information currently available. Patient is a 81 year old female who admitted yesterday morning to the care of the surgical team. PCP: Dr. Gudino. Payer: confirmed: Medicare/ [employer]. Patient came to the hospital for a surgical procedure. She had open ventral hernia retro with mesh. Patient was prepared for surgery. She has had history of ventral hernia. Met with patient in her room. She is alert and oriented, pleasant. She resides here in [place] with her spouse, Estrada. She indicated that she has round the clock caregivers, [employer], for her , for he had a CVA. 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 At her baseline, she is independent. She is to work with [facility] today. P: Patient is to discharge home today. She will be working with [facility] before discharge. She does not use any DME at her baseline. Madonna Whitley RN/Weight Loss Sales Consultant
--- NOTE | 2021-05-22 14:07 | PC.NURSE ---
Pt recieved lying in bed, A&OX3. BP elevated initially SBP 170's-180's prior to a.m. antihypertensives. Pt alerted staff the site around her Yasir drain was leaking blood this a.m. RN reinforced with good effect. PA at bedside aware and after evaluating patient, cleared her discharge home. She is able to ambulate independently in the room. She acknowledges activity restrictions, site care, new medications and symptoms worsening as well as follow up appointment and Yasir drain management. She requests to stay until after lunch and then assisted to get dressed. At approximately 1300 patient is escorted by wheel chair to private vehicle with friend with all of her belongings.
== END 2021-05-22 13:56 | disposition home or self-care (01) ==
LOC: AC 05-22 13:16 → OR 05-23 09:57
PROVIDERS: Family Provider Internal Medicine; PCP Internal Medicine; Referring Provider Surgery; Visit Provider Surgery
PROC: 0WUF0JZ Supplement Abdominal Wall with Synthetic Substitute, Open Approach (ICD-10-PCS; CPT 49560; principal; 2021-05-21 08:45)
DX: K43.2 Incisional hernia without obstruction or gangrene (principal); K43.9 Ventral hernia without obstruction or gangrene; I10 Essential (primary) hypertension; Z20.822 Contact with and (suspected) exposure to COVID-19; Z85.44 Personal history of malignant neoplasm of other female genital organs; Z90.710 Acquired absence of both cervix and uterus; Z90.81 Acquired absence of spleen
CPT/HCPCS: 49560; 49568; 87635; 94760; 97161; C1781; C9803; C9290; J0690; J1100; J1170; J1885; J2405; J2704

== ENCOUNTER → 2021-06-23 15:14 | Outpatient (CLI) | payer MEDICARE, BC, SELFPAY ==
[2021-06-04 13:28] VITALS: BMI 17.4
[2021-06-23 15:35] LABS: Add Manual Diff / Slide Review NO; Basophils Absolute Auto 100 /uL (0-100); Basophils Percent Auto 0.9 % (0-2); Eosinophils Absolute Auto 100 /uL (0-450); Hematocrit 33.3 % (36-46); Lymphocytes Absolute Auto 1400 /uL (1100-4500); Lymphocytes Percent Auto 20.7 % (25-40); Mean Corpuscular HGB Conc 32.9 % (30-36); Mean Corpuscular Hemoglobin 31.7 PG (26-34); Mean Corpuscular Volume 96.4 fL (80-100); Monocytes Absolute Auto 800 /uL (0-900); Monocytes Percent Auto 11.3 % (3-14); Neutrophils Absolute Auto 4400 /uL (1500-7000); Neutrophils Percent Auto 65.1 % (50-75); Platelet Count 265 X10^3/uL (150-400); Red Blood Cell Count 3.45 X10^6/uL (4.0-5.2); Red Cell Distribution Width 13.8 % (11.6-14.8); White Blood Cell Count 6.8 X10^3/uL (4.5-11.0)
[2021-06-23 16:32] LABS: Alanine Aminotransferase 16 IU/L (<35); Albumin 4.1 g/dL (3.5-5.0); Albumin Globulin Ratio 1.4 (1.0-2.8); Alkaline Phosphatase 94 U/L (38-126); Aspartate Aminotransferase 32 IU/L (14-36); BUN Creatinine Ratio 29.3 (6-22); Bilirubin Total 0.3 mg/dL (0.2-1.3); Blood Urea Nitrogen 24 mg/dL (7-17); Calcium 9.5 mg/dL (8.4-10.2); Carbon Dioxide 24 mmol/L (22-32); Chloride 107 mmol/L (98-107); Estimated Glomerular Filt Rate > 60.0 mL/min (>60); Glucose 102 mg/dL (80-110); HEMOLYSIS < 15 (0-50); Magnesium 1.9 mg/dL (1.6-2.3); Potassium 5.1 mmol/L (3.4-5.1); Sodium 139 mmol/L (137-145); Total Protein 7.1 g/dL (6.3-8.2)
== END ==
PROVIDERS: Family Provider Internal Medicine; PCP Internal Medicine; Referring Provider Obstetrics & Gynecology; Visit Provider Obstetrics & Gynecology
DX: C57.00 Malignant neoplasm of unspecified fallopian tube (principal); Z79.899 Other long term (current) drug therapy
CPT/HCPCS: 36415; 80053; 83735; 85025

== ENCOUNTER → 2021-07-08 13:57 | Outpatient (CLI) | payer MEDICARE, BC, SELFPAY ==
[2021-06-04 13:28] VITALS: BMI 17.4
[2021-07-08 15:07] LABS: Add Manual Diff / Slide Review NO; Basophils Absolute Auto 100 /uL (0-100); Basophils Percent Auto 0.8 % (0-2); Eosinophils Absolute Auto 200 /uL (0-450); Eosinophils Percent Auto 2.9 % (2-4); Hematocrit 33.1 % (36-46); Hemoglobin 10.9 g/dL (12.0-16.0); Lymphocytes Absolute Auto 1500 /uL (1100-4500); Lymphocytes Percent Auto 22.9 % (25-40); Mean Corpuscular HGB Conc 33.1 % (30-36); Mean Corpuscular Hemoglobin 31.8 PG (26-34); Monocytes Absolute Auto 700 /uL (0-900); Monocytes Percent Auto 10.5 % (3-14); Neutrophils Absolute Auto 4000 /uL (1500-7000); Neutrophils Percent Auto 62.9 % (50-75); Platelet Count 226 X10^3/uL (150-400); Red Blood Cell Count 3.45 X10^6/uL (4.0-5.2); Red Cell Distribution Width 13.7 % (11.6-14.8); White Blood Cell Count 6.4 X10^3/uL (4.5-11.0)
[2021-07-08 15:44] LABS: Alanine Aminotransferase 13 IU/L (<35); Albumin Globulin Ratio 1.4 (1.0-2.8); Alkaline Phosphatase 73 U/L (38-126); Aspartate Aminotransferase 28 IU/L (14-36); BUN Creatinine Ratio 27.7 (6-22); Bilirubin Total 0.3 mg/dL (0.2-1.3); Blood Urea Nitrogen 28 mg/dL (7-17); Calcium 8.9 mg/dL (8.4-10.2); Carbon Dioxide 27 mmol/L (22-32); Chloride 102 mmol/L (98-107); Estimated Glomerular Filt Rate 52.9 mL/min (>60); Globulin 2.8 g/dL (1.7-4.1); Glucose 97 mg/dL (80-110); HEMOLYSIS < 15 (0-50); Magnesium 2.4 mg/dL (1.6-2.3); Potassium 4.8 mmol/L (3.4-5.1); Sodium 136 mmol/L (137-145); Total Protein 6.8 g/dL (6.3-8.2)
== END ==
PROVIDERS: Family Provider Internal Medicine; PCP Internal Medicine; Referring Provider Obstetrics & Gynecology; Visit Provider Obstetrics & Gynecology
DX: C57.00 Malignant neoplasm of unspecified fallopian tube (principal); Z79.899 Other long term (current) drug therapy
CPT/HCPCS: 36415; 80053; 83735; 85025

== ENCOUNTER → 2021-08-04 15:25 | Outpatient (CLI) | payer MEDICARE, BC, SELFPAY ==
[2021-06-04 13:28] VITALS: BMI 17.4
[2021-08-04 16:02] LABS: Add Manual Diff / Slide Review NO; Basophils Absolute Auto 100 /uL (0-100); Basophils Percent Auto 0.9 % (0-2); Eosinophils Absolute Auto 100 /uL (0-450); Hematocrit 32.3 % (36-46); Hemoglobin 10.8 g/dL (12.0-16.0); Lymphocytes Absolute Auto 1300 /uL (1100-4500); Lymphocytes Percent Auto 20.4 % (25-40); Mean Corpuscular HGB Conc 33.3 % (30-36); Mean Corpuscular Volume 96.1 fL (80-100); Monocytes Absolute Auto 800 /uL (0-900); Monocytes Percent Auto 12.8 % (3-14); Neutrophils Absolute Auto 4100 /uL (1500-7000); Neutrophils Percent Auto 63.9 % (50-75); Platelet Count 213 X10^3/uL (150-400); Red Blood Cell Count 3.37 X10^6/uL (4.0-5.2); Red Cell Distribution Width 13.5 % (11.6-14.8); White Blood Cell Count 6.4 X10^3/uL (4.5-11.0)
[2021-08-04 16:12] LABS: Alanine Aminotransferase 14 IU/L (<35); Albumin 4.2 g/dL (3.5-5.0); Albumin Globulin Ratio 1.3 (1.0-2.8); Alkaline Phosphatase 76 U/L (38-126); Aspartate Aminotransferase 29 IU/L (14-36); BUN Creatinine Ratio 27.3 (6-22); Bilirubin Total 0.5 mg/dL (0.2-1.3); Bilirubin Unconjugated 0.3 mg/dL (0.0-1.1); Blood Urea Nitrogen 24 mg/dL (7-17); Carbon Dioxide 25 mmol/L (22-32); Chloride 105 mmol/L (98-107); Estimated Glomerular Filt Rate > 60.0 mL/min (>60); Globulin 3.2 g/dL (1.7-4.1); Glucose 101 mg/dL (80-110); HEMOLYSIS < 15 (0-50); Magnesium 1.9 mg/dL (1.6-2.3); Phosphorous 3.5 mg/dL (2.8-4.1); Potassium 4.4 mmol/L (3.4-5.1); Sodium 138 mmol/L (137-145); Total Protein 7.4 g/dL (6.3-8.2)
== END ==
PROVIDERS: Obstetrics & Gynecology; Family Provider Internal Medicine; PCP Internal Medicine; Referring Provider Nurse Practitioner Women's Health; Visit Provider Nurse Practitioner Women's Health
DX: C57.00 Malignant neoplasm of unspecified fallopian tube (principal); Z79.899 Other long term (current) drug therapy
CPT/HCPCS: 36415; 80069; 80076; 83735; 85025

== ENCOUNTER → 2021-09-08 14:35 | Outpatient (CLI) | payer MEDICARE, BC, SELFPAY ==
[2021-06-04 13:28] VITALS: BMI 17.4
[2021-09-08 15:19] LABS: Add Manual Diff / Slide Review NO; Basophils Absolute Auto 0 /uL (0-100); Basophils Percent Auto 0.6 % (0-2); Eosinophils Absolute Auto 100 /uL (0-450); Eosinophils Percent Auto 2.1 % (2-4); Hematocrit 34.3 % (36-46); Hemoglobin 11.4 g/dL (12.0-16.0); Lymphocytes Absolute Auto 1400 /uL (1100-4500); Lymphocytes Percent Auto 23.6 % (25-40); Mean Corpuscular HGB Conc 33.3 % (30-36); Mean Corpuscular Hemoglobin 31.8 PG (26-34); Mean Corpuscular Volume 95.4 fL (80-100); Monocytes Absolute Auto 700 /uL (0-900); Monocytes Percent Auto 11.9 % (3-14); Neutrophils Absolute Auto 3700 /uL (1500-7000); Neutrophils Percent Auto 61.8 % (50-75); Platelet Count 221 X10^3/uL (150-400); Red Blood Cell Count 3.59 X10^6/uL (4.0-5.2); Red Cell Distribution Width 12.9 % (11.6-14.8)
[2021-09-08 15:44] LABS: Alanine Aminotransferase 15 IU/L (<35); Albumin 4.3 g/dL (3.5-5.0); Albumin Globulin Ratio 1.4 (1.0-2.8); Alkaline Phosphatase 84 U/L (38-126); Aspartate Aminotransferase 31 IU/L (14-36); BUN Creatinine Ratio 29.1 (6-22); Bilirubin Total 0.4 mg/dL (0.2-1.3); Bilirubin Unconjugated 0.4 mg/dL (0.0-1.1); Blood Urea Nitrogen 30 mg/dL (7-17); Calcium 9.5 mg/dL (8.4-10.2); Carbon Dioxide 24 mmol/L (22-32); Chloride 106 mmol/L (98-107); Estimated Glomerular Filt Rate 51.7 mL/min (>60); Glucose 93 mg/dL (80-110); HEMOLYSIS < 15 (0-50); Phosphorous 3.5 mg/dL (2.8-4.1); Potassium 4.4 mmol/L (3.4-5.1); Sodium 137 mmol/L (137-145); Total Protein 7.3 g/dL (6.3-8.2)
== END ==
PROVIDERS: Family Provider Internal Medicine; PCP Internal Medicine; Referring Provider Obstetrics & Gynecology; Visit Provider Obstetrics & Gynecology
DX: C57.00 Malignant neoplasm of unspecified fallopian tube (principal); Z79.899 Other long term (current) drug therapy
CPT/HCPCS: 36415; 80069; 80076; 83735; 85025

== ENCOUNTER → 2021-10-06 14:32 | Outpatient (CLI) | payer MEDICARE, BC, SELFPAY ==
[2021-06-04 13:28] VITALS: BMI 17.4
[2021-10-06 15:30] LABS: Add Manual Diff / Slide Review NO; Basophils Absolute Auto 0 /uL (0-100); Basophils Percent Auto 0.7 % (0-2); Eosinophils Absolute Auto 100 /uL (0-450); Eosinophils Percent Auto 1.8 % (2-4); Hematocrit 36.1 % (36-46); Hemoglobin 11.8 g/dL (12.0-16.0); Lymphocytes Absolute Auto 1200 /uL (1100-4500); Lymphocytes Percent Auto 17.3 % (25-40); Mean Corpuscular HGB Conc 32.8 % (30-36); Mean Corpuscular Hemoglobin 31.4 PG (26-34); Mean Corpuscular Volume 95.5 fL (80-100); Monocytes Absolute Auto 600 /uL (0-900); Monocytes Percent Auto 9.6 % (3-14); Neutrophils Absolute Auto 4800 /uL (1500-7000); Neutrophils Percent Auto 70.6 % (50-75); Platelet Count 221 X10^3/uL (150-400); Red Blood Cell Count 3.78 X10^6/uL (4.0-5.2); Red Cell Distribution Width 13.3 % (11.6-14.8); White Blood Cell Count 6.7 X10^3/uL (4.5-11.0)
[2021-10-06 16:01] LABS: Alanine Aminotransferase 15 IU/L (<35); Albumin 4.5 g/dL (3.5-5.0); Albumin Globulin Ratio 1.5 (1.0-2.8); Alkaline Phosphatase 94 U/L (38-126); Aspartate Aminotransferase 32 IU/L (14-36); BUN Creatinine Ratio 26.6 (6-22); Bilirubin Total 0.5 mg/dL (0.2-1.3); Bilirubin Unconjugated 0.5 mg/dL (0.0-1.1); Blood Urea Nitrogen 29 mg/dL (7-17); Calcium 9.2 mg/dL (8.4-10.2); Carbon Dioxide 23 mmol/L (22-32); Chloride 105 mmol/L (98-107); Estimated Glomerular Filt Rate 48.4 mL/min (>60); Globulin 3.1 g/dL (1.7-4.1); Glucose 109 mg/dL (80-110); HEMOLYSIS < 15 (0-50); Phosphorous 4.2 mg/dL (2.8-4.1); Sodium 134 mmol/L (137-145); Total Protein 7.6 g/dL (6.3-8.2)
[2021-10-06 16:02] LABS: Potassium 5.6 mmol/L (3.4-5.1)
== END ==
PROVIDERS: Family Provider Internal Medicine; PCP Internal Medicine; Referring Provider Physician Assistant Medical; Visit Provider Physician Assistant Medical
DX: Z51.11 Encounter for antineoplastic chemotherapy (principal); C57.00 Malignant neoplasm of unspecified fallopian tube; Z79.899 Other long term (current) drug therapy
CPT/HCPCS: 36415; 80069; 80076; 83735; 85025

== ENCOUNTER → 2021-10-31 15:44 | Outpatient (CLI) | payer MEDICARE, BC, SELFPAY ==
[2021-06-04 13:28] VITALS: BMI 17.4
[2021-10-31 16:25] LABS: Add Manual Diff / Slide Review NO; Basophils Absolute Auto 0 /uL (0-100); Basophils Percent Auto 0.6 % (0-2); Eosinophils Absolute Auto 100 /uL (0-450); Eosinophils Percent Auto 2.2 % (2-4); Hematocrit 34.8 % (36-46); Hemoglobin 11.5 g/dL (12.0-16.0); Lymphocytes Absolute Auto 1300 /uL (1100-4500); Lymphocytes Percent Auto 20.3 % (25-40); Mean Corpuscular HGB Conc 33.1 % (30-36); Mean Corpuscular Hemoglobin 31.3 PG (26-34); Mean Corpuscular Volume 94.5 fL (80-100); Monocytes Absolute Auto 800 /uL (0-900); Monocytes Percent Auto 11.7 % (3-14); Neutrophils Absolute Auto 4300 /uL (1500-7000); Neutrophils Percent Auto 65.2 % (50-75); Platelet Count 209 X10^3/uL (150-400); Red Blood Cell Count 3.68 X10^6/uL (4.0-5.2); Red Cell Distribution Width 13.2 % (11.6-14.8); White Blood Cell Count 6.5 X10^3/uL (4.5-11.0)
[2021-10-31 16:43] LABS: Albumin 4.4 g/dL (3.5-5.0); BUN Creatinine Ratio 28.2 (6-22); Blood Urea Nitrogen 29 mg/dL (7-17); Calcium 9.1 mg/dL (8.4-10.2); Carbon Dioxide 25 mmol/L (22-32); Chloride 105 mmol/L (98-107); Estimated Glomerular Filt Rate 51.7 mL/min (>60); Glucose 100 mg/dL (80-110); HEMOLYSIS < 15 (0-50); Phosphorous 4.1 mg/dL (2.8-4.1); Potassium 5.3 mmol/L (3.4-5.1); Sodium 133 mmol/L (137-145)
[2021-11-01 07:28] LABS: Alanine Aminotransferase 14 IU/L (<35); Albumin Globulin Ratio 1.3 (1.0-2.8); Alkaline Phosphatase 94 U/L (38-126); Aspartate Aminotransferase 51 IU/L (14-36); Bilirubin Total 0.4 mg/dL (0.2-1.3); Bilirubin Unconjugated 0.4 mg/dL (0.0-1.1); Globulin 3.4 g/dL (1.7-4.1); Total Protein 7.8 g/dL (6.3-8.2)
== END ==
PROVIDERS: Family Provider Internal Medicine; PCP Internal Medicine; Referring Provider Physician Assistant Medical; Visit Provider Physician Assistant Medical
DX: C57.00 Malignant neoplasm of unspecified fallopian tube (principal); Z51.11 Encounter for antineoplastic chemotherapy; Z79.899 Other long term (current) drug therapy
CPT/HCPCS: 36415; 80069; 80076; 83735; 85025

== ENCOUNTER → 2021-12-01 14:50 | Outpatient (CLI) | payer MEDICARE, BC, SELFPAY ==
[2021-06-04 13:28] VITALS: BMI 17.4
[2021-12-01 15:23] LABS: Add Manual Diff / Slide Review NO; Basophils Absolute Auto 0 /uL (0-100); Basophils Percent Auto 0.8 % (0-2); Eosinophils Absolute Auto 100 /uL (0-450); Eosinophils Percent Auto 2.4 % (2-4); Hematocrit 33.9 % (36-46); Hemoglobin 11.2 g/dL (12.0-16.0); Lymphocytes Absolute Auto 1100 /uL (1100-4500); Lymphocytes Percent Auto 17.8 % (25-40); Mean Corpuscular Hemoglobin 31.2 PG (26-34); Mean Corpuscular Volume 94.6 fL (80-100); Monocytes Absolute Auto 700 /uL (0-900); Neutrophils Absolute Auto 4100 /uL (1500-7000); Platelet Count 227 X10^3/uL (150-400); Red Blood Cell Count 3.59 X10^6/uL (4.0-5.2); Red Cell Distribution Width 13.2 % (11.6-14.8)
[2021-12-01 15:35] LABS: Alanine Aminotransferase 13 IU/L (<35); Albumin 4.4 g/dL (3.5-5.0); Albumin Globulin Ratio 1.4 (1.0-2.8); Alkaline Phosphatase 82 U/L (38-126); Aspartate Aminotransferase 28 IU/L (14-36); BUN Creatinine Ratio 27.2 (6-22); Bilirubin Total 0.5 mg/dL (0.2-1.3); Blood Urea Nitrogen 31 mg/dL (7-17); Calcium 9.1 mg/dL (8.4-10.2); Carbon Dioxide 21 mmol/L (22-32); Chloride 107 mmol/L (98-107); Globulin 3.2 g/dL (1.7-4.1); Glucose 102 mg/dL (80-110); HEMOLYSIS < 15 (0-50); Sodium 135 mmol/L (137-145); Total Protein 7.6 g/dL (6.3-8.2)
[2021-12-01 15:43] LABS: Potassium 5.7 mmol/L (3.4-5.1)
== END ==
PROVIDERS: Family Provider Internal Medicine; PCP Internal Medicine; Referring Provider Physician Assistant Medical; Visit Provider Physician Assistant Medical
DX: I10 Essential (primary) hypertension (principal); C57.00 Malignant neoplasm of unspecified fallopian tube; E83.42 Hypomagnesemia
CPT/HCPCS: 36415; 80053; 83735; 85025

== ENCOUNTER → 2021-12-16 14:53 | Outpatient (CLI) | payer MEDICARE, BC, SELFPAY ==
[2021-06-04 13:28] VITALS: BMI 17.4
[2021-12-16 16:04] LABS: BUN Creatinine Ratio 28.2 (6-22); Blood Urea Nitrogen 37 mg/dL (7-17); Calcium 8.7 mg/dL (8.4-10.2); Carbon Dioxide 22 mmol/L (22-32); Chloride 104 mmol/L (98-107); Estimated Glomerular Filt Rate 41.4 mL/min (>60); Glucose 103 mg/dL (80-110); HEMOLYSIS < 15 (0-50); Potassium 5.3 mmol/L (3.4-5.1); Sodium 135 mmol/L (137-145)
== END ==
PROVIDERS: Family Provider Internal Medicine; PCP Internal Medicine; Referring Provider Internal Medicine Cardiovascular Disease; Visit Provider Internal Medicine Cardiovascular Disease
DX: E87.5 Hyperkalemia (principal)
CPT/HCPCS: 36415; 80048

== ENCOUNTER → 2021-12-30 16:38 | Outpatient (CLI) | payer MEDICARE, BC, SELFPAY ==
[2021-06-04 13:28] VITALS: BMI 17.4
[2021-12-30 17:34] LABS: Add Manual Diff / Slide Review NO; Basophils Absolute Auto 100 /uL (0-100); Basophils Percent Auto 0.9 % (0-2); Eosinophils Absolute Auto 200 /uL (0-450); Eosinophils Percent Auto 3.1 % (2-4); Hematocrit 32.4 % (36-46); Hemoglobin 10.6 g/dL (12.0-16.0); Lymphocytes Absolute Auto 1300 /uL (1100-4500); Mean Corpuscular HGB Conc 32.8 % (30-36); Mean Corpuscular Hemoglobin 31.2 PG (26-34); Mean Corpuscular Volume 95.3 fL (80-100); Monocytes Absolute Auto 600 /uL (0-900); Monocytes Percent Auto 10.2 % (3-14); Neutrophils Absolute Auto 3600 /uL (1500-7000); Neutrophils Percent Auto 62.8 % (50-75); Platelet Count 234 X10^3/uL (150-400); Red Cell Distribution Width 13.6 % (11.6-14.8); White Blood Cell Count 5.8 X10^3/uL (4.5-11.0)
[2021-12-30 17:50] LABS: Alanine Aminotransferase 17 IU/L (<35); Albumin 4.3 g/dL (3.5-5.0); Albumin Globulin Ratio 1.3 (1.0-2.8); Alkaline Phosphatase 86 U/L (38-126); Aspartate Aminotransferase 35 IU/L (14-36); BUN Creatinine Ratio 25.7 (6-22); Bilirubin Total 0.4 mg/dL (0.2-1.3); Blood Urea Nitrogen 26 mg/dL (7-17); Carbon Dioxide 22 mmol/L (22-32); Chloride 107 mmol/L (98-107); Estimated Glomerular Filt Rate 57 mL/min (>60); Globulin 3.2 g/dL (1.7-4.1); Glucose 145 mg/dL (80-110); HEMOLYSIS < 15 (0-50); Magnesium 2.3 mg/dL (1.6-2.3); Phosphorous 3.9 mg/dL (2.8-4.1); Sodium 137 mmol/L (137-145); Total Protein 7.5 g/dL (6.3-8.2)
[2021-12-30 17:57] LABS: Potassium 5.9 mmol/L (3.4-5.1)
== END ==
PROVIDERS: Family Provider Internal Medicine; PCP Internal Medicine; Referring Provider Physician Assistant Medical; Visit Provider Physician Assistant Medical
DX: I10 Essential (primary) hypertension (principal); Z79.899 Other long term (current) drug therapy; C57.00 Malignant neoplasm of unspecified fallopian tube; E83.42 Hypomagnesemia
CPT/HCPCS: 36415; 80053; 80069; 83735; 85025

== ENCOUNTER → 2022-01-20 14:11 | Outpatient (CLI) | payer MEDICARE, BC, SELFPAY ==
[2021-06-04 13:28] VITALS: BMI 17.4
[2022-01-20 15:56] LABS: Add Manual Diff / Slide Review NO; Basophils Absolute Auto 0 /uL (0-100); Basophils Percent Auto 0.5 % (0-2); Eosinophils Absolute Auto 100 /uL (0-450); Eosinophils Percent Auto 2.4 % (2-4); Hematocrit 31.9 % (36-46); Hemoglobin 10.6 g/dL (12.0-16.0); Lymphocytes Absolute Auto 1300 /uL (1100-4500); Lymphocytes Percent Auto 20.7 % (25-40); Mean Corpuscular HGB Conc 33.1 % (30-36); Mean Corpuscular Hemoglobin 31.8 PG (26-34); Mean Corpuscular Volume 96.1 fL (80-100); Monocytes Absolute Auto 700 /uL (0-900); Monocytes Percent Auto 11.2 % (3-14); Neutrophils Absolute Auto 4000 /uL (1500-7000); Neutrophils Percent Auto 65.2 % (50-75); Platelet Count 224 X10^3/uL (150-400); Red Blood Cell Count 3.32 X10^6/uL (4.0-5.2); White Blood Cell Count 6.1 X10^3/uL (4.5-11.0)
[2022-01-20 16:42] LABS: Alanine Aminotransferase 15 IU/L (<35); Albumin 4.2 g/dL (3.5-5.0); Albumin Globulin Ratio 1.2 (1.0-2.8); Alkaline Phosphatase 77 U/L (38-126); Aspartate Aminotransferase 33 IU/L (14-36); Bilirubin Total 0.4 mg/dL (0.2-1.3); Blood Urea Nitrogen 28 mg/dL (7-17); Calcium 8.6 mg/dL (8.4-10.2); Carbon Dioxide 25 mmol/L (22-32); Chloride 102 mmol/L (98-107); Estimated Glomerular Filt Rate 50 mL/min (>60); Globulin 3.4 g/dL (1.7-4.1); Glucose 95 mg/dL (80-110); HEMOLYSIS < 15 (0-50); Potassium 5.1 mmol/L (3.4-5.1); Sodium 135 mmol/L (137-145); Total Protein 7.6 g/dL (6.3-8.2)
== END ==
PROVIDERS: Family Provider Internal Medicine; PCP Internal Medicine; Referring Provider Obstetrics & Gynecology; Visit Provider Obstetrics & Gynecology
DX: C57.00 Malignant neoplasm of unspecified fallopian tube (principal)
CPT/HCPCS: 36415; 80053; 83735; 85025

== ENCOUNTER → 2022-01-26 16:11 | Outpatient (CLI) | payer MEDICARE, BC, SELFPAY ==
[2021-06-04 13:28] VITALS: BMI 17.4
[2022-01-26 17:09] LABS: Add Manual Diff / Slide Review NO; Basophils Absolute Auto 0 /uL (0-100); Basophils Percent Auto 1.1 % (0-2); Eosinophils Absolute Auto 100 /uL (0-450); Eosinophils Percent Auto 1.4 % (2-4); Hematocrit 32.3 % (36-46); Hemoglobin 10.8 g/dL (12.0-16.0); Lymphocytes Absolute Auto 1200 /uL (1100-4500); Lymphocytes Percent Auto 25.1 % (25-40); Mean Corpuscular HGB Conc 33.6 % (30-36); Mean Corpuscular Hemoglobin 31.8 PG (26-34); Mean Corpuscular Volume 94.8 fL (80-100); Monocytes Absolute Auto 300 /uL (0-900); Monocytes Percent Auto 5.8 % (3-14); Neutrophils Absolute Auto 3100 /uL (1500-7000); Neutrophils Percent Auto 66.6 % (50-75); Platelet Count 188 X10^3/uL (150-400); Red Blood Cell Count 3.41 X10^6/uL (4.0-5.2); Red Cell Distribution Width 13.7 % (11.6-14.8); White Blood Cell Count 4.6 X10^3/uL (4.5-11.0)
[2022-01-26 17:22] LABS: Alanine Aminotransferase 15 IU/L (<35); Albumin 4.3 g/dL (3.5-5.0); Albumin Globulin Ratio 1.3 (1.0-2.8); Alkaline Phosphatase 72 U/L (38-126); Aspartate Aminotransferase 33 IU/L (14-36); BUN Creatinine Ratio 35.5 (6-22); Bilirubin Total 0.6 mg/dL (0.2-1.3); Blood Urea Nitrogen 39 mg/dL (7-17); Calcium 8.6 mg/dL (8.4-10.2); Carbon Dioxide 23 mmol/L (22-32); Chloride 102 mmol/L (98-107); Estimated Glomerular Filt Rate 51 mL/min (>60); Globulin 3.3 g/dL (1.7-4.1); Glucose 112 mg/dL (80-110); HEMOLYSIS < 15 (0-50); Sodium 135 mmol/L (137-145); Total Protein 7.6 g/dL (6.3-8.2)
== END ==
PROVIDERS: Family Provider Internal Medicine; PCP Internal Medicine; Referring Provider Obstetrics & Gynecology; Visit Provider Obstetrics & Gynecology
DX: Z79.899 Other long term (current) drug therapy (principal); C57.00 Malignant neoplasm of unspecified fallopian tube
CPT/HCPCS: 36415; 80053; 83735; 85025

== ENCOUNTER → 2022-02-09 16:19 | Outpatient (CLI) | payer MEDICARE, BC, SELFPAY ==
[2021-06-04 13:28] VITALS: BMI 17.4
[2022-02-09 17:14] LABS: Basophils Absolute Auto 0 /uL (0-100); Basophils Percent Auto 1.2 % (0-2); Eosinophils Absolute Auto 100 /uL (0-450); Eosinophils Percent Auto 1.3 % (2-4); Hematocrit 29.9 % (36-46); Hemoglobin 10.2 g/dL (12.0-16.0); Lymphocytes Absolute Auto 1300 /uL (1100-4500); Mean Corpuscular HGB Conc 34.1 % (30-36); Mean Corpuscular Hemoglobin 32.7 PG (26-34); Mean Corpuscular Volume 95.9 fL (80-100); Monocytes Absolute Auto 800 /uL (0-900); Monocytes Percent Auto 19.9 % (3-14); Neutrophils Absolute Auto 2000 /uL (1500-7000); Neutrophils Percent Auto 47.6 % (50-75); Platelet Count 239 X10^3/uL (150-400); Red Blood Cell Count 3.11 X10^6/uL (4.0-5.2); Red Cell Distribution Width 13.9 % (11.6-14.8); White Blood Cell Count 4.2 X10^3/uL (4.5-11.0)
[2022-02-09 17:16] LABS: Add Manual Diff / Slide Review SLIDE REVIEW
[2022-02-09 17:18] LABS: Alanine Aminotransferase 19 IU/L (<35); Albumin 4.3 g/dL (3.5-5.0); Albumin Globulin Ratio 1.4 (1.0-2.8); Alkaline Phosphatase 77 U/L (38-126); Aspartate Aminotransferase 38 IU/L (14-36); BUN Creatinine Ratio 31.4 (6-22); Bilirubin Total 0.2 mg/dL (0.2-1.3); Blood Urea Nitrogen 33 mg/dL (7-17); Calcium 8.6 mg/dL (8.4-10.2); Carbon Dioxide 25 mmol/L (22-32); Chloride 104 mmol/L (98-107); Estimated Glomerular Filt Rate 54 mL/min (>60); Globulin 3.1 g/dL (1.7-4.1); Glucose 100 mg/dL (80-110); HEMOLYSIS < 15 (0-50); Magnesium 2.4 mg/dL (1.6-2.3); Potassium 4.8 mmol/L (3.4-5.1); Sodium 136 mmol/L (137-145); Total Protein 7.4 g/dL (6.3-8.2)
[2022-02-09 17:24] LABS: Anisocytosis 1+; Burr Cells 1+
== END ==
PROVIDERS: Family Provider Internal Medicine; PCP Internal Medicine; Referring Provider Obstetrics & Gynecology; Visit Provider Obstetrics & Gynecology
DX: Z79.899 Other long term (current) drug therapy (principal)
CPT/HCPCS: 36415; 80053; 83735; 85025

== ENCOUNTER → 2022-02-14 12:44 | Outpatient (CLI) | payer MEDICARE, BC, SELFPAY ==
[2021-06-04 13:28] VITALS: BMI 17.4
--- NOTE | 2022-02-14 | DI.RAD.S_ITS ---
PROCEDURE: XR HIP W PEL IF DONE DEYANIRA MIN 4V INDICATIONS: Bilateral Hip Pain TECHNIQUE: AP pelvis with lateral views of each hip. COMPARISON: None. FINDINGS: Bones: Postsurgical changes are seen with tendon anchors in the left greater trochanter. No acute fractures or dislocations. Pelvic ring appears intact. No suspicious bony lesions. Postsurgical changes are partially imaged in the lower lumbar spine. Minimal degenerative changes in the hips. Soft tissues: The visualized bowel gas pattern is normal. No suspicious soft tissue calcifications. IMPRESSION: Postsurgical changes at the left greater trochanter. No acute osseous abnormality. Very mild bilateral hip osteoarthrosis. Dictated by: Bernard Crawford M.D. on 02/14/2022 at 13:12 Approved by: Bernard Crawford M.D. on 02/14/2022 at 13:13
== END ==
PROVIDERS: Family Provider Internal Medicine; PCP Internal Medicine; Referring Provider Physician Assistant Medical; Visit Provider Physician Assistant Medical
DX: M16.0 Bilateral primary osteoarthritis of hip (principal); M25.551 Pain in right hip; M25.552 Pain in left hip
CPT/HCPCS: 73522

== ENCOUNTER → 2022-02-16 15:16 | Outpatient (CLI) | payer MEDICARE, BC, SELFPAY ==
[2021-06-04 13:28] VITALS: BMI 17.4
[2022-02-16 15:48] LABS: Add Manual Diff / Slide Review NO; Basophils Absolute Auto 100 /uL (0-100); Basophils Percent Auto 1.1 % (0-2); Eosinophils Absolute Auto 0 /uL (0-450); Eosinophils Percent Auto 0.7 % (2-4); Hematocrit 31.3 % (36-46); Hemoglobin 10.7 g/dL (12.0-16.0); Lymphocytes Absolute Auto 1200 /uL (1100-4500); Mean Corpuscular HGB Conc 34.2 % (30-36); Mean Corpuscular Hemoglobin 32.7 PG (26-34); Mean Corpuscular Volume 95.7 fL (80-100); Monocytes Absolute Auto 300 /uL (0-900); Monocytes Percent Auto 6.3 % (3-14); Neutrophils Absolute Auto 3800 /uL (1500-7000); Neutrophils Percent Auto 69.9 % (50-75); Platelet Count 196 X10^3/uL (150-400); Red Blood Cell Count 3.27 X10^6/uL (4.0-5.2); Red Cell Distribution Width 14.2 % (11.6-14.8); White Blood Cell Count 5.4 X10^3/uL (4.5-11.0)
[2022-02-16 16:01] LABS: Alanine Aminotransferase 16 IU/L (<35); Albumin 4.2 g/dL (3.5-5.0); Albumin Globulin Ratio 1.3 (1.0-2.8); Alkaline Phosphatase 70 U/L (38-126); Aspartate Aminotransferase 32 IU/L (14-36); BUN Creatinine Ratio 36.4 (6-22); Bilirubin Total 0.4 mg/dL (0.2-1.3); Blood Urea Nitrogen 36 mg/dL (7-17); Calcium 8.7 mg/dL (8.4-10.2); Carbon Dioxide 25 mmol/L (22-32); Chloride 107 mmol/L (98-107); Estimated Glomerular Filt Rate 58 mL/min (>60); Globulin 3.3 g/dL (1.7-4.1); Glucose 112 mg/dL (80-110); HEMOLYSIS < 15 (0-50); Magnesium 1.7 mg/dL (1.6-2.3); Potassium 4.6 mmol/L (3.4-5.1); Sodium 137 mmol/L (137-145); Total Protein 7.5 g/dL (6.3-8.2)
== END ==
PROVIDERS: Family Provider Internal Medicine; PCP Internal Medicine; Referring Provider Obstetrics & Gynecology; Visit Provider Obstetrics & Gynecology
DX: C57.00 Malignant neoplasm of unspecified fallopian tube (principal); I10 Essential (primary) hypertension
CPT/HCPCS: 36415; 80053; 83735; 85025

== ENCOUNTER → 2022-03-02 15:32 | Outpatient (CLI) | payer MEDICARE, BC, SELFPAY ==
[2021-06-04 13:28] VITALS: BMI 17.4
[2022-03-02 16:41] LABS: Basophils Absolute Auto 0 /uL (0-100); Basophils Percent Auto 0.4 % (0-2); Eosinophils Absolute Auto 100 /uL (0-450); Eosinophils Percent Auto 1.1 % (2-4); Hematocrit 29.7 % (36-46); Lymphocytes Absolute Auto 1300 /uL (1100-4500); Lymphocytes Percent Auto 28.3 % (25-40); Mean Corpuscular HGB Conc 33.6 % (30-36); Mean Corpuscular Hemoglobin 32.4 PG (26-34); Mean Corpuscular Volume 96.5 fL (80-100); Monocytes Absolute Auto 800 /uL (0-900); Monocytes Percent Auto 18.3 % (3-14); Neutrophils Absolute Auto 2400 /uL (1500-7000); Neutrophils Percent Auto 51.9 % (50-75); Platelet Count 240 X10^3/uL (150-400); Red Blood Cell Count 3.07 X10^6/uL (4.0-5.2); Red Cell Distribution Width 14.8 % (11.6-14.8); White Blood Cell Count 4.6 X10^3/uL (4.5-11.0)
[2022-03-02 16:42] LABS: Add Manual Diff / Slide Review SLIDE REVIEW
[2022-03-02 17:10] LABS: Alanine Aminotransferase 16 IU/L (<35); Albumin 4.3 g/dL (3.5-5.0); Albumin Globulin Ratio 1.4 (1.0-2.8); Alkaline Phosphatase 73 U/L (38-126); Aspartate Aminotransferase 32 IU/L (14-36); BUN Creatinine Ratio 32.7 (6-22); Bilirubin Total 0.3 mg/dL (0.2-1.3); Blood Urea Nitrogen 34 mg/dL (7-17); Calcium 8.6 mg/dL (8.4-10.2); Carbon Dioxide 26 mmol/L (22-32); Chloride 103 mmol/L (98-107); Estimated Glomerular Filt Rate 54 mL/min (>60); Globulin 3.1 g/dL (1.7-4.1); Glucose 96 mg/dL (80-110); HEMOLYSIS < 15 (0-50); Magnesium 1.7 mg/dL (1.6-2.3); Potassium 4.3 mmol/L (3.4-5.1); RBC Morphology Normal Morphology; Sodium 137 mmol/L (137-145); Total Protein 7.4 g/dL (6.3-8.2)
== END ==
PROVIDERS: Family Provider Internal Medicine; PCP Internal Medicine; Referring Provider Obstetrics & Gynecology; Visit Provider Obstetrics & Gynecology
DX: Z79.899 Other long term (current) drug therapy (principal)
CPT/HCPCS: 36415; 80053; 83735; 85025

== ENCOUNTER → 2022-03-10 14:40 | Outpatient (CLI) | payer MEDICARE, BC, SELFPAY ==
[2021-06-04 13:28] VITALS: BMI 17.4
[2022-03-10 15:03] LABS: Add Manual Diff / Slide Review NO; Basophils Absolute Auto 100 /uL (0-100); Basophils Percent Auto 0.9 % (0-2); Eosinophils Absolute Auto 0 /uL (0-450); Eosinophils Percent Auto 0.6 % (2-4); Hematocrit 30.5 % (36-46); Hemoglobin 10.2 g/dL (12.0-16.0); Lymphocytes Absolute Auto 1200 /uL (1100-4500); Lymphocytes Percent Auto 21.1 % (25-40); Mean Corpuscular HGB Conc 33.3 % (30-36); Mean Corpuscular Hemoglobin 32.4 PG (26-34); Mean Corpuscular Volume 97.4 fL (80-100); Monocytes Absolute Auto 300 /uL (0-900); Neutrophils Absolute Auto 4100 /uL (1500-7000); Neutrophils Percent Auto 71.4 % (50-75); Platelet Count 195 X10^3/uL (150-400); Red Blood Cell Count 3.14 X10^6/uL (4.0-5.2); White Blood Cell Count 5.7 X10^3/uL (4.5-11.0)
[2022-03-10 15:32] LABS: Alanine Aminotransferase 15 IU/L (<35); Albumin Globulin Ratio 1.4 (1.0-2.8); Alkaline Phosphatase 75 U/L (38-126); Aspartate Aminotransferase 29 IU/L (14-36); BUN Creatinine Ratio 37.6 (6-22); Bilirubin Total 0.4 mg/dL (0.2-1.3); Blood Urea Nitrogen 32 mg/dL (7-17); Calcium 8.5 mg/dL (8.4-10.2); Carbon Dioxide 23 mmol/L (22-32); Chloride 104 mmol/L (98-107); Estimated Glomerular Filt Rate > 60 mL/min (>60); Globulin 2.8 g/dL (1.7-4.1); Glucose 91 mg/dL (80-110); HEMOLYSIS < 15 (0-50); Magnesium 1.9 mg/dL (1.6-2.3); Potassium 4.9 mmol/L (3.4-5.1); Sodium 135 mmol/L (137-145); Total Protein 6.8 g/dL (6.3-8.2)
== END ==
PROVIDERS: Family Provider Internal Medicine; PCP Internal Medicine; Referring Provider Obstetrics & Gynecology; Visit Provider Obstetrics & Gynecology
DX: C57.00 Malignant neoplasm of unspecified fallopian tube (principal); Z79.899 Other long term (current) drug therapy
CPT/HCPCS: 36415; 80053; 83735; 85025

== ENCOUNTER 2022-03-17 14:30 | Outpatient (RCR) | payer MEDICARE, BC, SELFPAY ==
[2021-06-04 13:28] VITALS: BMI 17.4
--- NOTE | 2022-02-17 15:00 | PT.OIE ---
Current Diagnoses Lymphedema, not elsewhere classified (02/17/22) Past Medical History (Last Updated 05/14/21 @ 14:10 by Nery Garcia RN) Arthritis Essential hypertension Fallopian tube carcinoma Ovarian cancer Pulmonary nodule Scoliosis Past Surgical History (Last Updated 05/14/21 @ 13:50 by Nery Garcia RN) History of lung biopsy (2016) History of partial pancreatectomy S/P total abdominal hysterectomy and bilateral salpingo-oophorectomy (~2013) Status post exploratory laparotomy Status post splenectomy (2015) Visit Care Team Role Provider Type Chuy Gudino MD Attending Provider Physician Family Provider Primary Care Provider Referring Provider Specialty: Internal Medicine Address: [address] [place] [address], [address], [facility] Email: [email or web address] Physical Therapy Initial Evaluation PT-OP-A Visit Information Start: 02/16/22 16:45 Freq: Status: Active Protocol: Document 02/17/22 13:49 SAK (Rec: 02/22/22 11:32 SAK [id number]) Out-Patient Physical Therapy Visit Information Visit Information Visit Type Initial Evaluation Visit Start Time 13:45 Visit Stop Time 14:30 Total Visit Minutes 45 Visit Number 1 Evaluation Information Evaluation Date 02/17/22 Precautions Precautions currently on long-term chemo with mets to lungs PT-OP-B Current Condition Start: 02/16/22 16:45 Freq: Status: Active Protocol: Document 02/17/22 13:49 SAK (Rec: 02/17/22 14:37 SAK [id number]) Current Condition History of Current Condition Onset Date 8 months Current Complaints increased lymphedema left LE History of Current Condition Gradual increase in lymphedema , doesn't reduce at night. Red but negative for infection or clot. Wound on left leg recently that took weeks to heal. Sees oncologist tomorrow. Metastasis with 2 masses right lung. Has been on long-term cancer treatment. Now doing chemo Plaxotaxol in combination with Evastin. On 2 weeks, off 1 week x 8 cycles . Currently on second cycle. Has knee high compression stocking and thigh high compression stocking 30-40 mm Hg compression, very difficult to don. Recent irritation to skin. 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 , hot needle pain medial right thigh, spasms left LE at night , poor sleep. Doing self massage 2x/day. Prior Treatments and Tests Has had prior treatment for lymphedema, has compression stockings . Difficult to don at this time due to severity of lymphedema Developmental History Developmental History PMH: Arthritis Essential hypertension Fallopian tube carcinoma Ovarian cancer Pulmonary nodule Scoliosis Treatment Goals Patient/Caregiver Goals decrease lymphedema to allow her to move more easily, have less discomfort, and be able to wear her usual clothing. 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 Prior Functional Status Baseline Function- ADL's Independent Baseline Function- Mobility Independent Baseline Function- Gait indep Current Functional Impairments (Reported) Functional Limitations- ADL's difficult, painful, leg heavy Functional Limitations- Mobility/Gait leg heavy, limited, unable to take walks Functional Limitations- Work/School retired, caregiver for her Personal Factors Other Personal Factors That May Effect unable to take NSAIDS Therapy/Recovery PT-OP-C Subjective Start: 02/16/22 16:45 Freq: Status: Active Protocol: Document 02/17/22 13:49 [facility] (Rec: 02/22/22 11:32 [facility] [id number]) Patient Questionnaires Lymphedema Life Impact Score Lymphedema Score 54 PT-OP-K Range of Motion Start: 02/16/22 16:45 Freq: Status: Active Protocol: Document 02/17/22 13:49 [facility] (Rec: 02/22/22 11:32 [facility] [id number]) Hip Goniometric Range of Motion Hip Left Hip ROM WFL No Right Hip ROM WFL Yes Hip ROM Limitations Hip ROM Limitations Soft Tissue Tightness,Swelling Comments moderate decrease due to lymphedema Knee Goniometric Range of Motion Knee Left Knee ROM WFL No Right Knee ROM WFL Yes Knee ROM Limitations Knee ROM Limitations Soft Tissue Tightness,Swelling Comments mildly decreased flexion due to lymphedema Ankle and Foot Goniometric Range of Motion Ankle and Foot Left Ankle/Foot ROM WFL No Right Ankle/Foot ROM WFL Yes Ankle and Foot ROM Limitations ROM Limitations Swelling Comments moderately dec due to lymphedema PT-OP-N Lymphedema Start: 02/16/22 16:45 Freq: Status: Active Protocol: Document 02/17/22 13:49 [facility] (Rec: 02/22/22 11:32 [facility] [id number]) Lymphedema Measurements Lower Extremity Circumference Measurements Left Affected MT Heads 23.3 cm Mid-foot 23.4 cm Medial Malleolus 29.5 cm 10 cm From Medial Malleolus 30.5 cm 20 cm From Medial Malleolus 36 cm 30 cm From Medial Malleolus 36.8 cm 40 cm From Medial Malleolus 38.9 cm 50 cm From Medial Malleolus 42 cm 60 cm From Medial Malleolus 46 cm 70 cm From Medial Malleolus 53.7 cm Knee Joint 39.9 cm Hip 57.5 cm Right Unaffected MT Heads 23.2 cm Mid-foot 22.3 cm Medial Malleolus 25.1 cm 10 cm From Medial Malleolus 23.5 cm 20 cm From Medial Malleolus 32.1 cm 30 cm From Medial Malleolus 32.8 cm 40 cm From Medial Malleolus 37.9 cm 50 cm From Medial Malleolus 37.2 cm 60 cm From Medial Malleolus 42 cm 70 cm From Medial Malleolus 49.8 cm Knee Joint 38.8 cm Hip 59.4 cm PT-OP-Q Treatments Start: 02/16/22 16:45 Freq: Status: Active Protocol: Document 02/17/22 13:49 [facility] (Rec: 02/22/22 11:32 [facility] [id number]) Lymphedema Treatment Lymphedema Wrapping Materials Patient was loaned Ready Wrap, Juzo night garments for trial Patient Education Lymphedema Pathology patient demonstrates good understanding Lymphedema Prevention patient demonstrates good understanding Lymphedema Precautions patient demonstrates good understanding Compression Garments discussed options, loaned above garments for trial Self Manual Lymphatic Drainage Patient reports does 2x/day; will need to review for effectiveness Sequential Lymphedema Exercises does 1-2x/day; will need to review for effectiveness Other Discussed possible medication options including anti- inflammatory and antibiotics; patient to discuss with her oncologist tomorrow. PT-OP-T Assessment and Plan Start: 02/16/22 16:45 Freq: Status: Active Protocol: Document 02/17/22 13:49 [facility] (Rec: 02/22/22 11:32 [facility] [id number]) Physical Therapy Assessment Rehab Potential Rehabilitation Potential Fair Evaluation Complexity Number of Personal Factors/Comorbidities 1-2 Number of Body Systems Impaired 3 Clinical Presentation at Evaluation Unstable Impairments Impairments Activity Tolerance,Edema, Functional Mobility Goals Two Impairment lymphedema left LE Short Term Goal (STG) Review all aspects of lymphedema self-care, identify and discuss alternative compression garments for self- management of lymphedema during the day and night. STG Duration 04/06/22 Electrical Machinist Goal (LTG) Decrease lymphedema to a stable level (no increase or decrease greater than 1 cm over the course of 1 week) and patient to be independent with all aspects of lymphedema care to include skin care, self manual lymphatic drainage , lymphedema exercises, and use of compression. Patient to have effective and well- fitting compression garments for wearing during the day and night for lymphedema management. LTG Duration 05/20/22 One Impairment lymphedema left LE affecting patient's daily function Impairment Lymphedema Life Impact scale 54% indicating decreased activity tolerance and functional mobility Electrical Machinist Goal (LTG) Decrease LLIS to no greater than 25% as measure of improved management of lymphedema and improved daily function and quality of life. LTG Duration 05/20/22 Assessment Summary Assessment Patient presents to PT with function-limiting lymphedema left LE. She has been managing lymphedema for 10+ years due to cancer with chronic chemotherapy treatments. Most recent exacerbation of lymphedema was largely due to a medication issue, and patient to discuss this with her oncologist tomorrow. Recommendation made to discuss options of anti- inflammatories and/or antibiotics as possible adjunct to lymphedema management with her oncologist . Feel patient may benefit from use of compression alternative garments due to difficulty currently with donning and doffing and benefit from use of compression garments at night. She reports being unable to tolerate compression pump, but if no improvement with other options feel that is something she should consider also, starting with very low setting . REcommend PT for lymphedema management. Physical Therapy Plan Frequency and Duration Frequency of Treatment 2x/Week Duration of Treatment 12 weeks Plan of Care Start Date 02/17/22 Plan of Care End Date 05/20/22 Therapeutic Interventions Therapeutic Interventions Home Exercise Program, Lymphedema Management,Manual Therapy,Self-Care/Home Management,Therapeutic Exercises Next Visit Focus/Plan Next Note Type Treatment Note Next Visit Plan Discuss outcome of patient appointment with oncologist, review self-massage and lymphedema exercises, further discussion of compression options, MLD.
--- NOTE | 2022-02-17 15:00 | PT.OPPOC ---
Physical, Occupational & Speech Therapy At [facility] Current Diagnoses Lymphedema, not elsewhere classified (02/17/22) Visit Care Team Role Provider Type Chuy Gudino MD Attending Provider Physician Family Provider Primary Care Provider Referring Provider Specialty: Internal Medicine Address: [address] [place] [address], [address], [facility] Email: [email or web address] Plan Of Care PT-OP-T Assessment and Plan Start: 02/16/22 16:45 Freq: Status: Active Protocol: Document 02/17/22 13:49 SAK (Rec: 02/22/22 11:32 SAK [id number]) Physical Therapy Assessment Rehab Potential Rehabilitation Potential Fair Evaluation Complexity Number of Personal Factors/Comorbidities 1-2 Number of Body Systems Impaired 3 Clinical Presentation at Evaluation Unstable Impairments Impairments Activity Tolerance,Edema, Functional Mobility Goals Two Impairment lymphedema left LE Short Term Goal (STG) Review all aspects of lymphedema self-care, identify and discuss alternative compression garments for self- management of lymphedema during the day and night. STG Duration 04/06/22 Long-Term Goal (LTG) Decrease lymphedema to a stable level (no increase or decrease greater than 1 cm over the course of 1 week) and patient to be independent with all aspects of lymphedema care to include skin care, self manual lymphatic drainage , lymphedema exercises, and use of compression. Patient to have effective and well- fitting compression garments for wearing during the day and night for lymphedema management. LTG Duration 05/20/22 One Impairment lymphedema left LE affecting patient's daily function Impairment Lymphedema Life Impact scale 54% indicating decreased activity tolerance and functional mobility Ion Implant Machine Operator Goal (LTG) Decrease LLIS to no greater than 25% as measure of improved management of lymphedema and improved daily function and quality of life. LTG Duration 05/20/22 Assessment Summary Assessment Patient presents to PT with function-limiting lymphedema left LE. She has been managing lymphedema for 10+ years due to cancer with chronic chemotherapy treatments. Most recent exacerbation of lymphedema was largely due to a medication issue, and patient to discuss this with her oncologist tomorrow. Recommendation made to discuss options of anti- inflammatories and/or antibiotics as possible adjunct to lymphedema management with her oncologist . Feel patient may benefit from use of compression alternative garments due to difficulty currently with donning and doffing and benefit from use of compression garments at night. She reports being unable to tolerate compression pump, but if no improvement with other options feel that is something she should consider also, starting with very low setting . REcommend PT for lymphedema management. Physical Therapy Plan Frequency and Duration Frequency of Treatment 2x/Week Duration of Treatment 12 weeks Plan of Care Start Date 02/17/22 Plan of Care End Date 05/20/22 Therapeutic Interventions Therapeutic Interventions Home Exercise Program, Lymphedema Management,Manual Therapy,Self-Care/Home Management,Therapeutic Exercises Next Visit Focus/Plan Next Note Type Treatment Note Next Visit Plan Discuss outcome of patient appointment with oncologist, review self-massage and lymphedema exercises, further discussion of compression options, MLD. Plan of Care Dates Plan of Care Start Date 02/17/22 Plan of Care End Date 05/20/22 Electronically Signed by: Lara Balderas, PT 02/22/22 0998 If you are in agreement with this Plan of Care, please return a signed and dated copy. I have reviewed this Plan of Care and certify that the skilled therapy services above are required to meet the patient?s needs. Physician Signature Date Printed Name and Credentials Clinical Instructor Signature Printed Name and Credentials
--- NOTE | 2022-02-24 16:45 | PT.OTN ---
Current Diagnoses Lymphedema, not elsewhere classified (02/24/22) Physical Therapy Treatment Note PT-OP-A Visit Information Start: 02/16/22 16:45 Freq: Status: Active Protocol: Document 02/24/22 13:45 SAK (Rec: 02/24/22 16:45 SAK [id number]) Out-Patient Physical Therapy Visit Information Visit Information Visit Type Treatment Note Visit Start Time 13:45 Visit Stop Time 14:30 Total Visit Minutes 45 Visit Number 2 Evaluation Information Evaluation Date 02/17/22 Precautions Precautions currently on long-term chemo with mets to lungs PT-OP-B Current Condition Start: 02/16/22 16:45 Freq: Status: Active Protocol: Document 02/24/22 13:45 SAK (Rec: 02/24/22 16:45 SAK [id number]) Current Condition History of Current Condition Onset Date 8 months Current Complaints increased lymphedema left LE History of Current Condition Gradual increase in lymphedema , doesn't reduce at night. Red but negative for infection or clot. Wound on left leg recently that took weeks to heal. Sees oncologist tomorrow. Metastasis with 2 masses right lung. Has been on long-term cancer treatment. Now doing chemo Plaxotaxol in combination with Evastin. On 2 weeks, off 1 week x 8 cycles . Currently on second cycle. Has knee high compression stocking and thigh high compression stocking 30-40 mm Hg compression, very difficult to don. Recent irritation to skin. 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 , hot needle pain medial right thigh, spasms left LE at night , poor sleep. Doing self massage 2x/day. Prior Treatments and Tests Has had prior treatment for lymphedema, has compression stockings . Difficult to don at this time due to severity of lymphedema Developmental History Developmental History PMH: Arthritis Essential hypertension Fallopian tube carcinoma Ovarian cancer Pulmonary nodule Scoliosis Treatment Goals Patient/Caregiver Goals decrease lymphedema to allow her to move more easily, have less discomfort, and be able to wear her usual clothing. 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 Prior Functional Status Baseline Function- ADL's Independent Baseline Function- Mobility Independent Baseline Function- Gait indep PT-OP-C Subjective Start: 02/16/22 16:45 Freq: Status: Active Protocol: Document 02/24/22 13:45 SAK (Rec: 02/24/22 16:45 [facility] [id number]) OP-PT Subjective Patient Comments Patient Comments Can't take anti-inflammatory because of effect on BP. BUN and Creatinine high. No word yet on trial antibiotic, states oncologist is going to do further researching for any other medication that may be helpful. Has used compression some, uncomfortable, but wearing. Wearing 20-30mm Hg compression today. Has custom compression stockings but hasn't been remeasured for years; agreeable to PT recommendation to make appointment at [facility] to be remeasured. Plans to order night compression garments that were loaned. Requests no bandaging due to unable to wear clothes. Patient encouraged to wear skirt or wide leg pants to allow bandaging. Reports continued pain bilateral anterior hips, difficult to lift legs espescially into bed. PT-OP-K Range of Motion Start: 02/16/22 16:45 Freq: Status: Active Protocol: Document 02/17/22 13:49 SAK (Rec: 02/22/22 11:32 [facility] [id number]) Hip Goniometric Range of Motion Hip Left Hip ROM WFL No Right Hip ROM WFL Yes Hip ROM Limitations Hip ROM Limitations Soft Tissue Tightness,Swelling Comments moderate decrease due to lymphedema Knee Goniometric Range of Motion Knee Left Knee ROM WFL No Right Knee ROM WFL Yes Knee ROM Limitations Knee ROM Limitations Soft Tissue Tightness,Swelling Comments mildly decreased flexion due to lymphedema Ankle and Foot Goniometric Range of Motion Ankle and Foot Left Ankle/Foot ROM WFL No Right Ankle/Foot ROM WFL Yes Ankle and Foot ROM Limitations ROM Limitations Swelling Comments moderately dec due to lymphedema PT-OP-N Lymphedema Start: 02/16/22 16:45 Freq: Status: Active Protocol: Document 02/24/22 13:45 SAK (Rec: 02/24/22 16:45 [facility] [id number]) Lymphedema Measurements Lower Extremity Circumference Measurements Left Affected MT Heads 23.8 cm Mid-foot 22.3 cm Medial Malleolus 31.7 cm 10 cm From Medial Malleolus 31.3 cm 20 cm From Medial Malleolus 38.1 cm 30 cm From Medial Malleolus 39.7 cm 40 cm From Medial Malleolus 43.9 cm 50 cm From Medial Malleolus 46.4 cm 60 cm From Medial Malleolus 51 cm Knee Joint 39.9 cm Hip 58 cm PT-OP-Q Treatments Start: 02/16/22 16:45 Freq: Status: Active Protocol: Document 02/24/22 13:45 [facility] (Rec: 02/24/22 16:45 [facility] [id number]) Therapeutic Exercises Supine Exercises hip flexor stretch Reps/Minutes 2x30 left Comments instructed to do cedric. Manual Therapy Treatment Soft Tissue Mobilization iliopsoas Body Location left hip Mobilization Type Sustained Pressure Intensity/Depth Moderate Body Position Supine Lymphedema Treatment Manual Lymphatic Drainage Location left LE Duration 20 min Comments focus and AIA and AII pathways with patient educated to try using soft brush at home with self MLD and watch cancer rehab APT videos for lymphedema education. Lymphedema Wrapping Materials Patient to wear current compression stockings but foam horseshoe cut for around lateral malleolus and recommended patient bandage with short stretch bandage as foot and ankle have worst edema. Also issued 2 small chip bags as alternative under bandage. Unable to bandage today due to time constraints; 45 min scheduled session vs recommended 90 min to allow full treatment. Patient Education Self Manual Lymphatic Drainage instrsucted to try use of long -handled soft brush to reach hard to reach ar Sequential Lymphedema Exercises does 1-2x/day; will need to review for effectiveness Other Recommended patient make appointment for being remeasured for custom compression stockings. PT-OP-T Assessment and Plan Start: 02/16/22 16:45 Freq: Status: Active Protocol: Document 02/24/22 13:45 [facility] (Rec: 02/24/22 16:45 [facility] [id number]) Physical Therapy Assessment Evaluation Complexity Number of Personal Factors/Comorbidities 1-2 Number of Body Systems Impaired 3 Clinical Presentation at Evaluation Unstable Impairments Impairments Activity Tolerance,Edema, Functional Mobility Goals Three Impairment pain bilateral anterior hips Impairment 6/10 on pain scale Residential Youth Counselor Goal (LTG) Decrease pain to no greater than 2/10 with all usual activities include getting into bed. Patient to be independent with hip flexor stretching and self massage. LTG Duration 05/20/22 Two Impairment lymphedema left LE Short Term Goal (STG) Review all aspects of lymphedema self-care, identify and discuss alternative compression garments for self- management of lymphedema during the day and night. STG Duration 04/06/22 Senior Living Goal (LTG) Decrease lymphedema to a stable level (no increase or decrease greater than 1 cm over the course of 1 week) and patient to be independent with all aspects of lymphedema care to include skin care, self manual lymphatic drainage , lymphedema exercises, and use of compression. Patient to have effective and well- fitting compression garments for wearing during the day and night for lymphedema management. LTG Duration 05/20/22 One Impairment lymphedema left LE affecting patient's daily function Impairment Lymphedema Life Impact scale 54% indicating decreased activity tolerance and functional mobility Residential Youth Counselor Goal (LTG) Decrease LLIS to no greater than 25% as measure of improved management of lymphedema and improved daily function and quality of life. LTG Duration 05/20/22 Assessment Summary Assessment Patient circumferential measurements higher today. REcommended bandaging but patient states she wouldn't be able to wear clothes. Previously recommended wearing a long skirt to allow bandaging. PT cut black foam and issued chip bags for patient trial at home with self bandaging over compression stocking just at ankle with use of foam especially retromalleolar. Also recommended patient use long-handled soft brush for reaching distal areas with self MLD, make appointment for new measurements to be taken for custom compression stockings. Anterior hip pain appears due to iliopsoas tightness; started to address with STM and stretching; patient demonstrated good understanding. Some decrease in edema noted with MLD; time constraints didn't allow to be remeasured. Patient given information regarding [employer] PT videos. Physical Therapy Plan Frequency and Duration Frequency of Treatment 2x/Week Duration of Treatment 12 weeks Plan of Care Start Date 02/17/22 Plan of Care End Date 05/20/22 Therapeutic Interventions Therapeutic Interventions Home Exercise Program, Lymphedema Management,Manual Therapy,Self-Care/Home Management,Therapeutic Exercises Next Visit Focus/Plan Next Note Type Treatment Note Next Visit Plan REview lymphedema exercises, further discussion of compression options as needed including assure patient made appointment to be remeasured. . Extend treatment sessions to 90 min appointments as schedule allows.
--- NOTE | 2022-03-03 17:24 | PT.OTN ---
Current Diagnoses Lymphedema, not elsewhere classified (03/03/22) Physical Therapy Treatment Note PT-OP-A Visit Information Start: 02/16/22 16:45 Freq: Status: Active Protocol: Document 03/03/22 13:49 SAK (Rec: 03/03/22 14:45 SAK [id number]) Out-Patient Physical Therapy Visit Information Visit Information Visit Type Treatment Note Visit Start Time 13:46 Visit Stop Time 15:15 Total Visit Minutes 89 Visit Number 3 Evaluation Information Evaluation Date 02/17/22 Precautions Precautions currently on long-term chemo with mets to lungs PT-OP-B Current Condition Start: 02/16/22 16:45 Freq: Status: Active Protocol: Document 03/03/22 13:49 SAK (Rec: 03/03/22 14:45 SAK [id number]) Current Condition History of Current Condition Onset Date 8 months Current Complaints increased lymphedema left LE History of Current Condition Gradual increase in lymphedema , doesn't reduce at night. Red but negative for infection or clot. Wound on left leg recently that took weeks to heal. Sees oncologist tomorrow. Metastasis with 2 masses right lung. Has been on long-term cancer treatment. Now doing chemo Plaxotaxol in combination with Evastin. On 2 weeks, off 1 week x 8 cycles . Currently on second cycle. Has knee high compression stocking and thigh high compression stocking 30-40 mm Hg compression, very difficult to don. Recent irritation to skin. 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 , hot needle pain medial right thigh, spasms left LE at night , poor sleep. Doing self massage 2x/day. Prior Treatments and Tests Has had prior treatment for lymphedema, has compression stockings . Difficult to don at this time due to severity of lymphedema Developmental History Developmental History PMH: Arthritis Essential hypertension Fallopian tube carcinoma Ovarian cancer Pulmonary nodule Scoliosis Treatment Goals Patient/Caregiver Goals decrease lymphedema to allow her to move more easily, have less discomfort, and be able to wear her usual clothing. 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 Prior Functional Status Baseline Function- ADL's Independent Baseline Function- Mobility Independent Baseline Function- Gait indep PT-OP-C Subjective Start: 02/16/22 16:45 Freq: Status: Active Protocol: Document 03/03/22 13:49 SAK (Rec: 03/03/22 14:45 [facility] [id number]) OP-PT Subjective Patient Comments Patient Comments Measurements sent to [facility] for ordering new compression garment due to current ones not working well. Difficulty tolerating any night garments. Reports she previously had a pump but it was too difficult for her to manage but that was a long time ago and is willing to consider a more modern potentially easier pump to use. She reports frustration with her worsening lymphedema, difficulty managing at home despite wearing the compression she has and doing self-massage and exercise at least 2x/day. LYmphedema has been very bad past few days. Had last week off from chemo, has again tomorrow. PT-OP-K Range of Motion Start: 02/16/22 16:45 Freq: Status: Active Protocol: Document 02/17/22 13:49 [facility] (Rec: 02/22/22 11:32 [facility] [id number]) Hip Goniometric Range of Motion Hip Left Hip ROM WFL No Right Hip ROM WFL Yes Hip ROM Limitations Hip ROM Limitations Soft Tissue Tightness,Swelling Comments moderate decrease due to lymphedema Knee Goniometric Range of Motion Knee Left Knee ROM WFL No Right Knee ROM WFL Yes Knee ROM Limitations Knee ROM Limitations Soft Tissue Tightness,Swelling Comments mildly decreased flexion due to lymphedema Ankle and Foot Goniometric Range of Motion Ankle and Foot Left Ankle/Foot ROM WFL No Right Ankle/Foot ROM WFL Yes Ankle and Foot ROM Limitations ROM Limitations Swelling Comments moderately dec due to lymphedema PT-OP-N Lymphedema Start: 02/16/22 16:45 Freq: Status: Active Protocol: Document 03/03/22 17:15 [facility] (Rec: 03/03/22 17:16 [facility] [id number]) Lymphedema Measurements Lower Extremity Circumference Measurements Left Affected MT Heads 24.1 cm Mid-foot 22.9 cm Medial Malleolus 29.5 cm 10 cm From Medial Malleolus 29.4 cm 20 cm From Medial Malleolus 36.7 cm 30 cm From Medial Malleolus 37.8 cm 40 cm From Medial Malleolus 39.7 cm 50 cm From Medial Malleolus 44.1 cm 60 cm From Medial Malleolus 47.9 cm - after sequential pneumatic pump x 40 min PT-OP-Q Treatments Start: 02/16/22 16:45 Freq: Status: Active Protocol: Document 03/03/22 13:49 [facility] (Rec: 03/03/22 17:22 [facility] [id number]) Lymphedema Treatment Manual Lymphatic Drainage Location trunk in prep for pump to left LE Duration 20 min Comments prior to sequential pneumatic pump left LE; for prep of proximal trunk to facilitate lymphagiomotoricity during pump of LE. 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 Sequential Lymphedema Exercises Comments Patient not feeling well enough. Compression Garment Assessment Compression Garment Assessment Details further discussion and education in benefit of night garments, possibility of layering garments and/or bandaging. PT-OP-T Assessment and Plan Start: 02/16/22 16:45 Freq: Status: Active Protocol: Document 03/03/22 13:49 [facility] (Rec: 03/03/22 14:45 [facility] [id number]) Physical Therapy Assessment Goals Three Impairment pain bilateral anterior hips Impairment 6/10 on pain scale Leather Colorer Goal (LTG) Decrease pain to no greater than 2/10 with all usual activities include getting into bed. Patient to be independent with hip flexor stretching and self massage. LTG Duration 05/20/22 Two Impairment lymphedema left LE Short Term Goal (STG) Review all aspects of lymphedema self-care, identify and discuss alternative compression garments for self- management of lymphedema during the day and night. STG Duration 04/06/22 Assisted Goal (LTG) Decrease lymphedema to a stable level (no increase or decrease greater than 1 cm over the course of 1 week) and patient to be independent with all aspects of lymphedema care to include skin care, self manual lymphatic drainage , lymphedema exercises, and use of compression. Patient to have effective and well- fitting compression garments for wearing during the day and night for lymphedema management. LTG Duration 05/20/22 One Impairment lymphedema left LE affecting patient's daily function Impairment Lymphedema Life Impact scale 54% indicating decreased activity tolerance and functional mobility Assisted Goal (LTG) Decrease LLIS to no greater than 25% as measure of improved management of lymphedema and improved daily function and quality of life. LTG Duration 05/20/22 Assessment Summary Assessment Due to active cancer at this time MLD and use of pump is a precaution but not absolute contraindication and as patient lymphedema is so limiting and uncomfortable for her and has continued to worsen, I feel a home sequential pneumatic pump is highly indicated for this patient, including trunk component for best reduction. 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 She is concerned about her ability to be safe and mobile enough to be caregiver for her if she is bandaged. Trial done today with sequential pneumatic pump and we noted decrease in measurements as noted in chart after use of pump. Will request order from Dr. Gudino and send referral to [facility] rep. After noting improvement after trial next sessions will include training in use of pump as so far best results achieved with this. Measurements were sent to On[facility] at [facility] for new, custom compression stocking. Physical Therapy Plan Frequency and Duration Frequency of Treatment 2x/Week Duration of Treatment 12 weeks Plan of Care Start Date 02/17/22 Plan of Care End Date 05/20/22 Therapeutic Interventions Therapeutic Interventions Home Exercise Program, Lymphedema Management,Manual Therapy,Self-Care/Home Management,Therapeutic Exercises Next Visit Focus/Plan Next Note Type Treatment Note Next Visit Plan Assist with referral to [facility] for potential pump for home use. Continue lymphedema management including MLD, compression problem solving, evaluate new compression stocking when obtained, educate in use of sequential pneumatic pump in PT so she will be able to do independently in the home.
--- NOTE | 2022-03-05 17:38 | PT.OTN ---
Current Diagnoses Lymphedema, not elsewhere classified (03/05/22) Physical Therapy Treatment Note PT-OP-A Visit Information Start: 02/16/22 16:45 Freq: Status: Active Protocol: Document 03/05/22 16:05 SAK (Rec: 03/05/22 17:28 [facility] [id number]) Out-Patient Physical Therapy Visit Information Visit Information Visit Type Treatment Note Visit Start Time 16:05 Visit Stop Time 16:00 Total Visit Minutes 55 Visit Number 4 Evaluation Information Evaluation Date 02/17/22 Precautions Precautions currently on long-term chemo with mets to lungs PT-OP-B Current Condition Start: 02/16/22 16:45 Freq: Status: Active Protocol: Document 03/05/22 16:05 SAK (Rec: 03/05/22 17:28 [facility] [id number]) Current Condition History of Current Condition Onset Date 8 months Current Complaints increased lymphedema left LE History of Current Condition Gradual increase in lymphedema , doesn't reduce at night. Red but negative for infection or clot. Wound on left leg recently that took weeks to heal. Sees oncologist tomorrow. Metastasis with 2 masses right lung. Has been on long-term cancer treatment. Now doing chemo Plaxotaxol in combination with Evastin. On 2 weeks, off 1 week x 8 cycles . Currently on second cycle. Has knee high compression stocking and thigh high compression stocking 30-40 mm Hg compression, very difficult to don. Recent irritation to skin. 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 , hot needle pain medial right thigh, spasms left LE at night , poor sleep. Doing self massage 2x/day. Prior Treatments and Tests Has had prior treatment for lymphedema, has compression stockings . Difficult to don at this time due to severity of lymphedema Developmental History Developmental History PMH: Arthritis Essential hypertension Fallopian tube carcinoma Ovarian cancer Pulmonary nodule Scoliosis Treatment Goals Patient/Caregiver Goals decrease lymphedema to allow her to move more easily, have less discomfort, and be able to wear her usual clothing. 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 PT-OP-C Subjective Start: 02/16/22 16:45 Freq: Status: Active Protocol: Document 03/05/22 16:05 SAK (Rec: 03/05/22 17:28 [facility] [id number]) OP-PT Subjective Patient Comments Patient Comments Reports the pump felt so good last time, I am so hoping to be able to use one at home. Less swelling and discomfort in left leg after. Continues to do hip flexor stretch and manual treatment as instructed by PT and is having less anterior hip pain. PT-OP-K Range of Motion Start: 02/16/22 16:45 Freq: Status: Active Protocol: Document 02/17/22 13:49 [facility] (Rec: 02/22/22 11:32 [facility] [id number]) Hip Goniometric Range of Motion Hip Left Hip ROM WFL No Right Hip ROM WFL Yes Hip ROM Limitations Hip ROM Limitations Soft Tissue Tightness,Swelling Comments moderate decrease due to lymphedema Knee Goniometric Range of Motion Knee Left Knee ROM WFL No Right Knee ROM WFL Yes Knee ROM Limitations Knee ROM Limitations Soft Tissue Tightness,Swelling Comments mildly decreased flexion due to lymphedema Ankle and Foot Goniometric Range of Motion Ankle and Foot Left Ankle/Foot ROM WFL No Right Ankle/Foot ROM WFL Yes Ankle and Foot ROM Limitations ROM Limitations Swelling Comments moderately dec due to lymphedema PT-OP-N Lymphedema Start: 02/16/22 16:45 Freq: Status: Active Protocol: Document 03/05/22 17:36 [facility] (Rec: 03/05/22 17:38 [facility] [id number]) Lymphedema Measurements Lower Extremity Circumference Measurements Left Affected MT Heads 23.8 cm Mid-foot 22.8 cm Medial Malleolus 30.6 cm 10 cm From Medial Malleolus 30.5 cm 20 cm From Medial Malleolus 37.1 cm 30 cm From Medial Malleolus 38.6 cm 40 cm From Medial Malleolus 38.8 cm 50 cm From Medial Malleolus 45.8 cm 60 cm From Medial Malleolus 48.1 cm Knee Joint 42.7 cm Hip 60 cm - after sequential pneumatic pump x 40 min PT-OP-Q Treatments Start: 02/16/22 16:45 Freq: Status: Active Protocol: Document 03/05/22 16:05 [facility] (Rec: 03/05/22 17:28 [facility] [id number]) Lymphedema Treatment Manual Lymphatic Drainage Location trunk in prep for pump to left LE Duration 10 min Comments prior to sequential pneumatic pump left LE; for prep of proximal trunk to facilitate lymphagiomotoricity during pump of LE. (PT clinic pump has no trunk component) PT-OP-R Modalities Start: 02/16/22 16:45 Freq: Status: Active Protocol: Document 03/05/22 16:05 [facility] (Rec: 03/05/22 17:29 [facility] [id number]) Compression Pump Treatment Treatment Location Left Leg Pressure Amount (mmHg) (mmHG) 45 Inflation Time (Seconds) 30 Deflation Time (Seconds) 10 Treatment Duration (minutes) 40 Treatment Tolerance Excellent Treatment Comments decreased lymphedema visually as well as per circumferential measurements PT-OP-T Assessment and Plan Start: 02/16/22 16:45 Freq: Status: Active Protocol: Document 03/05/22 16:05 [facility] (Rec: 03/05/22 17:28 [facility] [id number]) Physical Therapy Assessment Goals Three Impairment pain bilateral anterior hips Impairment 6/10 on pain scale Group Home Goal (LTG) Decrease pain to no greater than 2/10 with all usual activities include getting into bed. Patient to be independent with hip flexor stretching and self massage. LTG Duration 05/20/22 Two Impairment lymphedema left LE Short Term Goal (STG) Review all aspects of lymphedema self-care, identify and discuss alternative compression garments for self- management of lymphedema during the day and night. STG Duration 04/06/22 Group Home Goal (LTG) Decrease lymphedema to a stable level (no increase or decrease greater than 1 cm over the course of 1 week) and patient to be independent with all aspects of lymphedema care to include skin care, self manual lymphatic drainage , lymphedema exercises, and use of compression. Patient to have effective and well- fitting compression garments for wearing during the day and night for lymphedema management. LTG Duration 05/20/22 One Impairment lymphedema left LE affecting patient's daily function Impairment Lymphedema Life Impact scale 54% indicating decreased activity tolerance and functional mobility Group Home Goal (LTG) Decrease LLIS to no greater than 25% as measure of improved management of lymphedema and improved daily function and quality of life. LTG Duration 05/20/22 Physical Therapy Plan Frequency and Duration Frequency of Treatment 2x/Week Duration of Treatment 12 weeks Plan of Care Start Date 02/17/22 Plan of Care End Date 05/20/22 Therapeutic Interventions Therapeutic Interventions Home Exercise Program, Lymphedema Management,Manual Therapy,Self-Care/Home Management,Therapeutic Exercises Next Visit Focus/Plan Next Note Type Treatment Note Next Visit Plan Assist with referral to [employer] for potential pump for home use. Continue lymphedema management including MLD, compression problem solving, evaluate new compression stocking when obtained, educate in use of sequential pneumatic pump in PT so she will be able to do independently in the home.
--- NOTE | 2022-03-12 15:04 | PT.OTN ---
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 Red but negative for infection or clot. Wound on left leg recently that took weeks to heal. Sees oncologist tomorrow. Metastasis with 2 masses right lung. Has been on long-term cancer treatment. Now doing chemo Plaxotaxol in combination with Evastin. On 2 weeks, off 1 week x 8 cycles . Currently on second cycle. Has knee high compression stocking and thigh high compression stocking 30-40 mm Hg compression, very difficult to don. Recent irritation to skin. 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 , hot needle pain medial right thigh, spasms left LE at night , poor sleep. Doing self massage 2x/day. Prior Treatments and Tests Has had prior treatment for lymphedema, has compression stockings . Difficult to don at this time due to severity of lymphedema Developmental History Developmental History PMH: Arthritis Essential hypertension Fallopian tube carcinoma Ovarian cancer Pulmonary nodule Scoliosis Treatment Goals Patient/Caregiver Goals decrease lymphedema to allow her to move more easily, have less discomfort, and be able to wear her usual clothing. 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 PT-OP-C Subjective Start: 02/16/22 16:45 Freq: Status: Active Protocol: Document 03/12/22 14:31 AW (Rec: 03/12/22 15:02 AW [id number]) OP-PT Subjective Patient Comments Patient Comments I had chemo yesterday and I'm feeling so nauseous and tired . PT-OP-K Range of Motion Start: 02/16/22 16:45 Freq: Status: Active Protocol: Document 02/17/22 13:49 SAK (Rec: 02/22/22 11:32 SAK [id number]) Hip Goniometric Range of Motion Hip Left Hip ROM WFL No Right Hip ROM WFL Yes Hip ROM Limitations Hip ROM Limitations Soft Tissue Tightness,Swelling Comments moderate decrease due to lymphedema Knee Goniometric Range of Motion Knee Left Knee ROM WFL No Right Knee ROM WFL Yes Knee ROM Limitations Knee ROM Limitations Soft Tissue Tightness,Swelling Comments mildly decreased flexion due to lymphedema Ankle and Foot Goniometric Range of Motion Ankle and Foot Left Ankle/Foot ROM WFL No Right Ankle/Foot ROM WFL Yes Ankle and Foot ROM Limitations ROM Limitations Swelling Comments moderately dec due to lymphedema PT-OP-N Lymphedema Start: 02/16/22 16:45 Freq: Status: Active Protocol: Document 03/05/22 17:36 SAK (Rec: 03/05/22 17:38 SAK [id number]) Lymphedema Measurements Lower Extremity Circumference Measurements Left Affected MT Heads 23.8 cm Mid-foot 22.8 cm Medial Malleolus 30.6 cm 10 cm From Medial Malleolus 30.5 cm 20 cm From Medial Malleolus 37.1 cm 30 cm From Medial Malleolus 38.6 cm 40 cm From Medial Malleolus 38.8 cm 50 cm From Medial Malleolus 45.8 cm 60 cm From Medial Malleolus 48.1 cm Knee Joint 42.7 cm Hip 60 cm - after sequential pneumatic pump x 40 min PT-OP-Q Treatments Start: 02/16/22 16:45 Freq: Status: Active Protocol: Document 03/12/22 14:31 AW (Rec: 03/12/22 15:02 AW [id number]) Lymphedema Treatment Manual Lymphatic Drainage Location trunk in prep for pump to left LE Duration 10 min Comments prior to sequential pneumatic pump left LE; for prep of proximal trunk to facilitate lymphagiomotoricity during pump of LE. (PT clinic pump has no trunk component) Sequential Lymphedema Exercises Comments Patient not feeling well enough. PT-OP-R Modalities Start: 02/16/22 16:45 Freq: Status: Active Protocol: Document 03/12/22 14:31 AW (Rec: 03/12/22 15:02 AW [id number]) Compression Pump Treatment Treatment Location Left Leg Pressure Amount (mmHg) (mmHG) 45 Inflation Time (Seconds) 30 Deflation Time (Seconds) 10 Treatment Duration (minutes) 40 Treatment Tolerance Excellent Treatment Comments decreased lymphedema visually as well as per circumferential measurements PT-OP-T Assessment and Plan Start: 02/16/22 16:45 Freq: Status: Active Protocol: Document 03/12/22 14:31 AW (Rec: 03/12/22 15:02 AW [id number]) Physical Therapy Assessment Goals Three Impairment pain bilateral anterior hips Impairment 6/10 on pain scale Correction Goal (LTG) Decrease pain to no greater than 2/10 with all usual activities include getting into bed. Patient to be independent with hip flexor stretching and self massage. LTG Duration 05/20/22 Two Impairment lymphedema left LE Short Term Goal (STG) Review all aspects of lymphedema self-care, identify and discuss alternative compression garments for self- management of lymphedema during the day and night. STG Duration 04/06/22 [employer] Goal (LTG) Decrease lymphedema to a stable level (no increase or decrease greater than 1 cm over the course of 1 week) and patient to be independent with all aspects of lymphedema care to include skin care, self manual lymphatic drainage , lymphedema exercises, and use of compression. Patient to have effective and well- fitting compression garments for wearing during the day and night for lymphedema management. LTG Duration 05/20/22 One Impairment lymphedema left LE affecting patient's daily function Impairment Lymphedema Life Impact scale 54% indicating decreased activity tolerance and functional mobility Correction Goal (LTG) Decrease LLIS to no greater than 25% as measure of improved management of lymphedema and improved daily function and quality of life. LTG Duration 05/20/22 Assessment Summary Assessment Short treatment today due to scheduling. Pt has limited tolerance for treatment this date after chemo yesterday. Focused on MLD prep at trunk and pneumatic pump treatment today with reduction noted visually and with circumferential measurements post-treatment. Continue to recommend pump for home to improve pt's mobility and ability to care for her spouse . Physical Therapy Plan Frequency and Duration Frequency of Treatment 2x/Week Duration of Treatment 12 weeks Plan of Care Start Date 02/17/22 Plan of Care End Date 05/20/22 Therapeutic Interventions Therapeutic Interventions Home Exercise Program, Lymphedema Management,Manual Therapy,Self-Care/Home Management,Therapeutic Exercises Next Visit Focus/Plan Next Note Type Treatment Note Next Visit Plan Assist with referral to [employer] for potential pump for home use. Continue lymphedema management including MLD, compression problem solving, evaluate new compression stocking when obtained, educate in use of sequential pneumatic pump in PT so she will be able to do independently in the home.
--- NOTE | 2022-03-12 17:02 | PT.OTN ---
Current Diagnoses Lymphedema, not elsewhere classified (03/12/22) Physical Therapy Treatment Note PT-OP-A Visit Information Start: 02/16/22 16:45 Freq: Status: Active Protocol: Document 03/12/22 14:31 AW (Rec: 03/12/22 15:02 AW [id number]) Out-Patient Physical Therapy Visit Information Visit Information Visit Type Treatment Note Visit Start Time 14:30 Visit Stop Time 15:15 Total Visit Minutes 45 Visit Number 5 Number of TUNNEL MUCKER Visits 0 Evaluation Information Evaluation Date 02/17/22 Precautions Precautions currently on long-term chemo with mets to lungs PT-OP-B Current Condition Start: 02/16/22 16:45 Freq: Status: Active Protocol: Document 03/05/22 16:05 SAK (Rec: 03/05/22 17:28 SAK [id number]) Current Condition History of Current Condition Onset Date 8 months Current Complaints increased lymphedema left LE History of Current Condition Gradual increase in lymphedema , doesn't reduce at night. Red but negative for infection or clot. Wound on left leg recently that took weeks to heal. Sees oncologist tomorrow. Metastasis with 2 masses right lung. Has been on long-term cancer treatment. Now doing chemo Plaxotaxol in combination with Evastin. On 2 weeks, off 1 week x 8 cycles . Currently on second cycle. Has knee high compression stocking and thigh high compression stocking 30-40 mm Hg compression, very difficult to don. Recent irritation to skin. 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 , hot needle pain medial right thigh, spasms left LE at night , poor sleep. Doing self massage 2x/day. Prior Treatments and Tests Has had prior treatment for lymphedema, has compression stockings . Difficult to don at this time due to severity of lymphedema Developmental History Developmental History PMH: Arthritis Essential hypertension Fallopian tube carcinoma Ovarian cancer Pulmonary nodule Scoliosis Treatment Goals Patient/Caregiver Goals decrease lymphedema to allow her to move more easily, have less discomfort, and be able to wear her usual clothing. 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 PT-OP-C Subjective Start: 02/16/22 16:45 Freq: Status: Active Protocol: Document 03/12/22 14:31 AW (Rec: 03/12/22 15:02 AW [id number]) OP-PT Subjective Patient Comments Patient Comments I had chemo yesterday and I'm feeling so nauseous and tired . PT-OP-K Range of Motion Start: 02/16/22 16:45 Freq: Status: Active Protocol: Document 02/17/22 13:49 SAK (Rec: 02/22/22 11:32 SAK [id number]) Hip Goniometric Range of Motion Hip Left Hip ROM WFL No Right Hip ROM WFL Yes Hip ROM Limitations Hip ROM Limitations Soft Tissue Tightness,Swelling Comments moderate decrease due to lymphedema Knee Goniometric Range of Motion Knee Left Knee ROM WFL No Right Knee ROM WFL Yes Knee ROM Limitations Knee ROM Limitations Soft Tissue Tightness,Swelling Comments mildly decreased flexion due to lymphedema Ankle and Foot Goniometric Range of Motion Ankle and Foot Left Ankle/Foot ROM WFL No Right Ankle/Foot ROM WFL Yes Ankle and Foot ROM Limitations ROM Limitations Swelling Comments moderately dec due to lymphedema PT-OP-N Lymphedema Start: 02/16/22 16:45 Freq: Status: Active Protocol: Document 03/12/22 14:31 AW (Rec: 03/12/22 17:02 AW [id number]) Lymphedema Measurements Lower Extremity Circumference Measurements Left Affected MT Heads 22.3 cm Mid-foot 22.4 cm Medial Malleolus 28.9 cm 10 cm From Medial Malleolus 29.5 cm 20 cm From Medial Malleolus 35.1 cm 30 cm From Medial Malleolus 34.8 cm 40 cm From Medial Malleolus 38.1 cm 50 cm From Medial Malleolus 41.8 cm 60 cm From Medial Malleolus 44.2 cm - after sequential pneumatic pump left LE PT-OP-Q Treatments Start: 02/16/22 16:45 Freq: Status: Active Protocol: Document 03/12/22 14:31 AW (Rec: 03/12/22 15:02 AW [id number]) Lymphedema Treatment Manual Lymphatic Drainage Location trunk in prep for pump to left LE Duration 10 min Comments prior to sequential pneumatic pump left LE; for prep of proximal trunk to facilitate lymphagiomotoricity during pump of LE. (PT clinic pump has no trunk component) Sequential Lymphedema Exercises Comments Patient not feeling well enough. PT-OP-R Modalities Start: 02/16/22 16:45 Freq: Status: Active Protocol: Document 03/12/22 14:31 AW (Rec: 03/12/22 15:02 AW [id number]) Compression Pump Treatment Treatment Location Left Leg Pressure Amount (mmHg) (mmHG) 45 Inflation Time (Seconds) 30 Deflation Time (Seconds) 10 Treatment Duration (minutes) 40 Treatment Tolerance Excellent Treatment Comments decreased lymphedema visually as well as per circumferential measurements PT-OP-T Assessment and Plan Start: 02/16/22 16:45 Freq: Status: Active Protocol: Document 03/12/22 14:31 AW (Rec: 03/12/22 15:02 AW [id number]) Physical Therapy Assessment Goals Three Impairment pain bilateral anterior hips Impairment 6/10 on pain scale Jail Goal (LTG) Decrease pain to no greater than 2/10 with all usual activities include getting into bed. Patient to be independent with hip flexor stretching and self massage. LTG Duration 05/20/22 Two Impairment lymphedema left LE Short Term Goal (STG) Review all aspects of lymphedema self-care, identify and discuss alternative compression garments for self- management of lymphedema during the day and night. STG Duration 04/06/22 Jail Goal (LTG) Decrease lymphedema to a stable level (no increase or decrease greater than 1 cm over the course of 1 week) and patient to be independent with all aspects of lymphedema care to include skin care, self manual lymphatic drainage , lymphedema exercises, and use of compression. Patient to have effective and well- fitting compression garments for wearing during the day and night for lymphedema management. LTG Duration 05/20/22 One Impairment lymphedema left LE affecting patient's daily function Impairment Lymphedema Life Impact scale 54% indicating decreased activity tolerance and functional mobility Serger Goal (LTG) Decrease LLIS to no greater than 25% as measure of improved management of lymphedema and improved daily function and quality of life. LTG Duration 05/20/22 Assessment Summary Assessment Short treatment today due to scheduling. Pt has limited tolerance for treatment this date after chemo yesterday. Focused on MLD prep at trunk and pneumatic pump treatment today with reduction noted visually and with circumferential measurements post-treatment. Continue to recommend pump for home to improve pt's mobility and ability to care for her spouse . Physical Therapy Plan Frequency and Duration Frequency of Treatment 2x/Week Duration of Treatment 12 weeks Plan of Care Start Date 02/17/22 Plan of Care End Date 05/20/22 Therapeutic Interventions Therapeutic Interventions Home Exercise Program, Lymphedema Management,Manual Therapy,Self-Care/Home Management,Therapeutic Exercises Next Visit Focus/Plan Next Note Type Treatment Note Next Visit Plan Assist with referral to [employer] for potential pump for home use. Continue lymphedema management including MLD, compression problem solving, evaluate new compression stocking when obtained, educate in use of sequential pneumatic pump in PT so she will be able to do independently in the home.
--- NOTE | 2022-03-17 16:30 | PT.OTN ---
Current Diagnoses Lymphedema, not elsewhere classified (03/17/22) Physical Therapy Treatment Note PT-OP-A Visit Information Start: 02/16/22 16:45 Freq: Status: Active Protocol: Document 03/17/22 14:31 AW (Rec: 03/17/22 15:11 AW [id number]) Out-Patient Physical Therapy Visit Information Visit Information Visit Type Treatment Note Visit Start Time 14:30 Visit Stop Time 15:15 Total Visit Minutes 45 Visit Number 6 Number of IMPREGNATOR OPERATOR Visits 0 Precautions Precautions currently on long-term chemo with mets to lungs PT-OP-B Current Condition Start: 02/16/22 16:45 Freq: Status: Active Protocol: Document 03/05/22 16:05 SAK (Rec: 03/05/22 17:28 SAK [id number]) Current Condition History of Current Condition Onset Date 8 months Current Complaints increased lymphedema left LE History of Current Condition Gradual increase in lymphedema , doesn't reduce at night. Red but negative for infection or clot. Wound on left leg recently that took weeks to heal. Sees oncologist tomorrow. Metastasis with 2 masses right lung. Has been on long-term cancer treatment. Now doing chemo Plaxotaxol in combination with Evastin. On 2 weeks, off 1 week x 8 cycles . Currently on second cycle. Has knee high compression stocking and thigh high compression stocking 30-40 mm Hg compression, very difficult to don. Recent irritation to skin. 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 , hot needle pain medial right thigh, spasms left LE at night , poor sleep. Doing self massage 2x/day. Prior Treatments and Tests Has had prior treatment for lymphedema, has compression stockings . Difficult to don at this time due to severity of lymphedema Developmental History Developmental History PMH: Arthritis Essential hypertension Fallopian tube carcinoma Ovarian cancer Pulmonary nodule Scoliosis Treatment Goals Patient/Caregiver Goals decrease lymphedema to allow her to move more easily, have less discomfort, and be able to wear her usual clothing. 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 PT-OP-C Subjective Start: 02/16/22 16:45 Freq: Status: Active Protocol: Document 03/17/22 14:31 AW (Rec: 03/17/22 15:11 AW [id number]) OP-PT Subjective Patient Comments Patient Comments This is an off week for chemo. Feeling less sick but maybe more swollen. Weight was up five pounds last week. PT-OP-K Range of Motion Start: 02/16/22 16:45 Freq: Status: Active Protocol: Document 02/17/22 13:49 SAK (Rec: 02/22/22 11:32 SAK [id number]) Hip Goniometric Range of Motion Hip Left Hip ROM WFL No Right Hip ROM WFL Yes Hip ROM Limitations Hip ROM Limitations Soft Tissue Tightness,Swelling Comments moderate decrease due to lymphedema Knee Goniometric Range of Motion Knee Left Knee ROM WFL No Right Knee ROM WFL Yes Knee ROM Limitations Knee ROM Limitations Soft Tissue Tightness,Swelling Comments mildly decreased flexion due to lymphedema Ankle and Foot Goniometric Range of Motion Ankle and Foot Left Ankle/Foot ROM WFL No Right Ankle/Foot ROM WFL Yes Ankle and Foot ROM Limitations ROM Limitations Swelling Comments moderately dec due to lymphedema PT-OP-N Lymphedema Start: 02/16/22 16:45 Freq: Status: Active Protocol: Document 03/17/22 14:31 AW (Rec: 03/17/22 15:11 AW [id number]) Lymphedema Measurements Lower Extremity Circumference Measurements Left Affected MT Heads 21.5 cm Mid-foot 22.4 cm Medial Malleolus 29.1 cm 10 cm From Medial Malleolus 28.9 cm 20 cm From Medial Malleolus 35.6 cm 30 cm From Medial Malleolus 36.6 cm 40 cm From Medial Malleolus 38.6 cm 50 cm From Medial Malleolus 42.6 cm 60 cm From Medial Malleolus 45.5 cm - measured after pump only today . PT-OP-Q Treatments Start: 02/16/22 16:45 Freq: Status: Active Protocol: Document 03/17/22 14:31 AW (Rec: 03/17/22 15:11 AW [id number]) Lymphedema Treatment Manual Lymphatic Drainage Location trunk in prep for pump to left LE Duration 10 min Comments prior to sequential pneumatic pump left LE; for prep of proximal trunk to facilitate lymphagiomotoricity during pump of LE. (PT clinic pump has no trunk component) Sequential Lymphedema Exercises Comments Limited treatment time today PT-OP-R Modalities Start: 02/16/22 16:45 Freq: Status: Active Protocol: Document 03/17/22 14:31 AW (Rec: 03/17/22 16:30 AW [id number]) Compression Pump Treatment Treatment Location Left Leg Pressure Amount (mmHg) (mmHG) 45 Inflation Time (Seconds) 30 Deflation Time (Seconds) 10 Treatment Duration (minutes) 40 Treatment Tolerance Excellent Treatment Comments decreased lymphedema visually as well as per circumferential measurements PT-OP-T Assessment and Plan Start: 02/16/22 16:45 Freq: Status: Active Protocol: Document 03/17/22 14:31 AW (Rec: 03/17/22 15:11 AW [id number]) Physical Therapy Assessment Goals Three Impairment pain bilateral anterior hips Impairment 6/10 on pain scale Chain Hoist Operator Goal (LTG) Decrease pain to no greater than 2/10 with all usual activities include getting into bed. Patient to be independent with hip flexor stretching and self massage. LTG Duration 05/20/22 Two Impairment lymphedema left LE Short Term Goal (STG) Review all aspects of lymphedema self-care, identify and discuss alternative compression garments for self- management of lymphedema during the day and night. STG Duration 04/06/22 Chain Hoist Operator Goal (LTG) Decrease lymphedema to a stable level (no increase or decrease greater than 1 cm over the course of 1 week) and patient to be independent with all aspects of lymphedema care to include skin care, self manual lymphatic drainage , lymphedema exercises, and use of compression. Patient to have effective and well- fitting compression garments for wearing during the day and night for lymphedema management. LTG Duration 05/20/22 One Impairment lymphedema left LE affecting patient's daily function Impairment Lymphedema Life Impact scale 54% indicating decreased activity tolerance and functional mobility Senior Living Goal (LTG) Decrease LLIS to no greater than 25% as measure of improved management of lymphedema and improved daily function and quality of life. LTG Duration 05/20/22 Assessment Summary Assessment Nicke from [facility] called pt and said new compression garment was in hand and would be mailed to her. Plan to assess next visit. Short treatment again today. Continued focus on MLD for trunk and LLE in preparation for pneumatic pump . Continued working trunk MLD during pump time. Measurements were taken only after pump today due to limited time. Continue to recommend pump for home to improve pt's mobility and ability to care for her spouse. Physical Therapy Plan Frequency and Duration Frequency of Treatment 2x/Week Duration of Treatment 12 weeks Plan of Care Start Date 02/17/22 Plan of Care End Date 05/20/22 Therapeutic Interventions Therapeutic Interventions Home Exercise Program, Lymphedema Management,Manual Therapy,Self-Care/Home Management,Therapeutic Exercises Next Visit Focus/Plan Next Note Type Treatment Note Next Visit Plan Assist with referral to [employer] for potential pump for home use. Continue lymphedema management including MLD, compression problem solving, evaluate new compression stocking when obtained, educate in use of sequential pneumatic pump in PT so she will be able to do independently in the home.
--- NOTE | 2022-06-10 13:31 | PT.OPDS ---
Current Diagnoses Lymphedema, not elsewhere classified (03/17/22) Visit Care Team Role Provider Type Chuy Gudino MD Attending Provider Physician Family Provider Primary Care Provider Referring Provider Specialty: Internal Medicine Address: [address] [place] [address], [address], [place], [address] Email: [email or web address] Visit Number Visit Number 6 Discharge Summary PT-OP-B Current Condition Start: 02/16/22 16:45 Freq: Status: Active Protocol: Document 03/05/22 16:05 SAK (Rec: 03/05/22 17:28 SAK [id number]) Current Condition History of Current Condition Onset Date 8 months Current Complaints increased lymphedema left LE History of Current Condition Gradual increase in lymphedema , doesn't reduce at night. Red but negative for infection or clot. Wound on left leg recently that took weeks to heal. Sees oncologist tomorrow. Metastasis with 2 masses right lung. Has been on long-term cancer treatment. Now doing chemo Plaxotaxol in combination with Evastin. On 2 weeks, off 1 week x 8 cycles . Currently on second cycle. Has knee high compression stocking and thigh high compression stocking 30-40 mm Hg compression, very difficult to don. Recent irritation to skin. 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 , hot needle pain medial right thigh, spasms left LE at night , poor sleep. Doing self massage 2x/day. Prior Treatments and Tests Has had prior treatment for lymphedema, has compression stockings . Difficult to don at this time due to severity of lymphedema Developmental History Developmental History PMH: Arthritis Essential hypertension Fallopian tube carcinoma Ovarian cancer Pulmonary nodule Scoliosis Treatment Goals Patient/Caregiver Goals decrease lymphedema to allow her to move more easily, have less discomfort, and be able to wear her usual clothing. 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 PT-OP-C Subjective Start: 02/16/22 16:45 Freq: Status: Active Protocol: Document 03/17/22 14:31 AW (Rec: 03/17/22 15:11 AW [id number]) OP-PT Subjective Patient Comments Patient Comments This is an off week for chemo. Feeling less sick but maybe more swollen. Weight was up five pounds last week. PT-OP-K Range of Motion Start: 02/16/22 16:45 Freq: Status: Active Protocol: Document 02/17/22 13:49 SAK (Rec: 02/22/22 11:32 SAK [id number]) Hip Goniometric Range of Motion Hip Left Hip ROM WFL No Right Hip ROM WFL Yes Hip ROM Limitations Hip ROM Limitations Soft Tissue Tightness,Swelling Comments moderate decrease due to lymphedema Knee Goniometric Range of Motion Knee Left Knee ROM WFL No Right Knee ROM WFL Yes Knee ROM Limitations Knee ROM Limitations Soft Tissue Tightness,Swelling Comments mildly decreased flexion due to lymphedema Ankle and Foot Goniometric Range of Motion Ankle and Foot Left Ankle/Foot ROM WFL No Right Ankle/Foot ROM WFL Yes Ankle and Foot ROM Limitations ROM Limitations Swelling Comments moderately dec due to lymphedema PT-OP-N Lymphedema Start: 02/16/22 16:45 Freq: Status: Active Protocol: Document 03/17/22 14:31 AW (Rec: 03/17/22 15:11 AW [id number]) Lymphedema Measurements Lower Extremity Circumference Measurements Left Affected MT Heads 21.5 cm Mid-foot 22.4 cm Medial Malleolus 29.1 cm 10 cm From Medial Malleolus 28.9 cm 20 cm From Medial Malleolus 35.6 cm 30 cm From Medial Malleolus 36.6 cm 40 cm From Medial Malleolus 38.6 cm 50 cm From Medial Malleolus 42.6 cm 60 cm From Medial Malleolus 45.5 cm - measured after pump only today . PT-OP-T Assessment and Plan Start: 02/16/22 16:45 Freq: Status: Active Protocol: Document 06/10/22 13:30 SAK (Rec: 06/10/22 13:31 SAK [id number]) Physical Therapy Plan Discharge Physical Therapy Discharge Reasons Change in Medical Status Discharge Comments hip fracture
== END 2022-06-11 12:15 | disposition home or self-care (01) ==
LOC: PHYS 14:30
PROVIDERS: Family Provider Internal Medicine; PCP Internal Medicine; Referring Provider Internal Medicine; Visit Provider Internal Medicine
DX: I89.0 Lymphedema, not elsewhere classified (principal)
CPT/HCPCS: 97016; 97140; 97163; 97535

== ENCOUNTER → 2022-03-23 15:11 | Outpatient (CLI) | payer MEDICARE, BC, SELFPAY ==
[2021-06-04 13:28] VITALS: BMI 17.4
[2022-03-23 16:25] LABS: Add Manual Diff / Slide Review NO; Basophils Absolute Auto 0 /uL (0-100); Basophils Percent Auto 0.5 % (0-2); Eosinophils Absolute Auto 100 /uL (0-450); Eosinophils Percent Auto 2.1 % (2-4); Hematocrit 31.3 % (36-46); Hemoglobin 10.5 g/dL (12.0-16.0); Lymphocytes Absolute Auto 1200 /uL (1100-4500); Lymphocytes Percent Auto 30.4 % (25-40); Mean Corpuscular HGB Conc 33.6 % (30-36); Mean Corpuscular Hemoglobin 32.8 PG (26-34); Mean Corpuscular Volume 97.5 fL (80-100); Monocytes Absolute Auto 800 /uL (0-900); Monocytes Percent Auto 19.7 % (3-14); Neutrophils Absolute Auto 1900 /uL (1500-7000); Neutrophils Percent Auto 47.3 % (50-75); Platelet Count 261 X10^3/uL (150-400); Red Blood Cell Count 3.21 X10^6/uL (4.0-5.2); Red Cell Distribution Width 15.6 % (11.6-14.8); White Blood Cell Count 4.1 X10^3/uL (4.5-11.0)
[2022-03-23 16:40] LABS: Alanine Aminotransferase 15 IU/L (<35); Albumin 4.3 g/dL (3.5-5.0); Albumin Globulin Ratio 1.6 (1.0-2.8); Alkaline Phosphatase 99 U/L (38-126); Aspartate Aminotransferase 31 IU/L (14-36); BUN Creatinine Ratio 23.6 (6-22); Bilirubin Total 0.3 mg/dL (0.2-1.3); Blood Urea Nitrogen 21 mg/dL (7-17); Calcium 8.9 mg/dL (8.4-10.2); Carbon Dioxide 26 mmol/L (22-32); Chloride 103 mmol/L (98-107); Estimated Glomerular Filt Rate > 60 mL/min (>60); Globulin 2.7 g/dL (1.7-4.1); Glucose 97 mg/dL (80-110); HEMOLYSIS < 15 (0-50); Magnesium 2.1 mg/dL (1.6-2.3); Sodium 135 mmol/L (137-145)
[2022-03-23 16:48] LABS: Potassium 5.4 mmol/L (3.4-5.1)
== END ==
PROVIDERS: Family Provider Internal Medicine; PCP Internal Medicine; Referring Provider Obstetrics & Gynecology; Visit Provider Obstetrics & Gynecology
DX: Z79.899 Other long term (current) drug therapy (principal)
CPT/HCPCS: 36415; 80053; 83735; 85025

== ENCOUNTER 2022-03-29 10:04 | Emergency (ER) | payer MEDICARE, BC, SELFPAY ==
[2021-06-04 13:28] VITALS: BMI 17.4
[2022-03-29] VITALS (7 sets, daily range): BP systolic 170–203; BP diastolic 78–95; PULSE 59–72; RESP 18–20; TEMP 36.4; O2SAT 97–99; BMI 18.2
--- NOTE | 2022-03-29 10:24 | DI.RAD.S_ITS ---
PROCEDURE: XR HIP W PEL IF DONE RT 2V INDICATIONS: pain, cancer TECHNIQUE: AP pelvis with lateral view(s) of the right hip(s). COMPARISON: Outside Facility, RG, CT THORAX/ABDOMEN/PELVIS WITH CONTRAST, 07/09/2021, 11:26. [facility], CR, XR HIP W PEL IF DONE DEYANIRA 3TO4V, 02/14/2022, 12:36. FINDINGS: Bones: There is an apparent mildly displaced fracture seen involving the right greater trochanter. Pelvic ring appears intact. Generalized degenerative changes are seen. Postoperative change is seen of the left lower lumbar spine and the left greater trochanter. Soft tissues: The visualized bowel gas pattern is normal. No suspicious soft tissue calcifications. IMPRESSION: Apparent mildly displaced fracture involving the right greater trochanter. If it would be helpful for clinical management decision making in this patient with this given history, please consider a dedicated CT for further evaluation. Postoperative and degenerative changes are seen. Dictated by: Steven Tran M.D. on 03/29/2022 at 10:19 Approved by: Steven Tran M.D. on 03/29/2022 at 10:21
--- NOTE | 2022-03-29 11:18 | ED_ITS ---
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 She is on Avastin and chemotherapy with SCCA. She has had increasing pain in her right groin area she has not fallen. She has increasing weakness in her leg. No nausea or vomiting. No chest pain or shortness of breath. She has ongoing lower leg swelling more in the left than the right. She has known lymphedema in the left leg. Related Data Home Medications Medication Instructions Recorded Confirmed telmisartan 40 mg tablet 40 mg PO BID 10/09/20 06/23/21 carvedilol 12.5 mg tablet 12.5 mg PO QAM 04/21/21 06/23/21 felodipine 5 mg tablet,extended 5 mg PO DAILY 04/21/21 06/23/21 release 24 hr hydrochlorothiazide 12.5 mg capsule 12.5 mg PO DAILY 04/21/21 06/23/21 carvedilol 12.5 mg tablet 6.25 mg PO QPM 05/14/21 06/23/21 prochlorperazine maleate 10 mg 10 mg PO Q6H PRN 05/26/21 06/23/21 tablet (Compazine) Previous Rx's Medication Instructions Recorded acetaminophen 325 mg capsule 650 mg PO QID PRN pain #60 caps 05/22/21 (Tylenol) docusate sodium 100 mg capsule 100 mg PO BID #30 caps 05/22/21 (Colace) sulfamethoxazole 800 1 tab PO Q12H #10 tabs 05/22/21 mg-trimethoprim 160 mg tablet (Bactrim DS) mupirocin 2 % topical ointment 1 applic topical BID #60 grams 12/17/21 hydrocodone 5 mg-acetaminophen 325 1 tab PO Q6H PRN pain #10 tabs 03/29/22 mg tablet Allergies Allergy/AdvReac Type Severity Reaction Status Date / Time latex [LATEX] Allergy Intermediate RASH Verified 06/23/21 15:07 amoxicillin Allergy Mild Rash Verified 06/23/21 15:07 azithromycin [AZITHROMYCIN] Allergy Mild HIVES Verified 06/23/21 15:07 Penicillins [PENICILLINS] Allergy Mild HIVES/SWELL Verified 06/23/21 15:07 ING hydralazine AdvReac Severe hives Verified 06/23/21 15:07 minoxidil AdvReac Intermediate severe leg Verified 06/23/21 15:07 edema and symptomatic hypotension spironolactone AdvReac Intermediate hyperkalemi Verified 06/23/21 15:07 a HENRY Inhibitors AdvReac Mild COUGH Verified 06/23/21 15:07 [HENRY INHIBITORS] Review of Systems Review of Systems Narrative: GENERAL: Denies chills, fatigue, malaise, fever, sweats, travel HEENT: Denies sinus pain, ear pain, sore throat, difficulty swallowing, neck pain RESPIRATORY: Denies dyspnea, cough, wheezing, hemoptysis, sputum. CARDIOVASCULAR: Denies chest pain, palpitations, orthopnea, edema GASTROINTESTINAL see HPI : Denies dysuria, frequency, incontinence, hematuria, urinary retention, flank pain. MUSCULOSKELETAL: Denies weakness, joint pain, or bony pain SKIN: No rash, no erythema, no pruritus NEUROLOGIC: Denies weakness, dizziness, headache, numbness, change in speech, confusion PSYCHIATRIC: No concerning psychosocial issues. 12 point review of systems is negative except for those stated above and HPI Patient History Medical History Arthritis Essential hypertension Fallopian tube carcinoma Ovarian cancer Pulmonary nodule Scoliosis Surgical History History of lung biopsy (2016) History of partial pancreatectomy S/P total abdominal hysterectomy and bilateral salpingo-oophorectomy (~2013) Status post exploratory laparotomy Status post splenectomy (2015) Social History household members: spouse Smoking Status: Former smoker alcohol intake: former Smoking Status: Former smoker Substance Use Type: does not use Exam Initial Vital Signs Initial Vital Signs: Vital Signs Temperature 97.6 F 03/29/22 10:04 Pulse Rate 72 03/29/22 10:04 Respiratory Rate 18 03/29/22 10:04 Blood Pressure 203/95 H 03/29/22 10:04 Pulse Oximetry 99 03/29/22 10:04 Oxygen Delivery Method 03/29/22 10:04 GENERAL: Chronically ill pleasant 82-year-old female HEENT: Head atraumatic,EOMI, pupils reactive, face symmetric, moist mucous membranes CARDIOVASCULAR: Regular rate and rhythm without murmurs, rubs or gallops. RESPIRATORY: Breath sounds equal bilaterally, no wheezes rales or rhonchi. ABDOMEN: Soft, nontender. Normoactive bowel sounds all 4 quadrants. No guarding or rebound. EXTREMITIES: Normal range of motion, no clubbing or edema. Neurovascularly intact Mild pain and right groin area strong femoral pulse on the right good distal pedal pulse on the right as well NEUROLOGICAL: Alert and oriented x4.Normal gait and speech. SKIN: Warm, dry, no laceration, no petechiae, no rashes or lesions. Course Orders Ordered: ED Orders 03/29/22 10:24 XR hip w pel if done RT 2V Stat 03/29/22 11:26 CT abdomen pelvis w con Stat 03/29/22 11:30 US periph venous low extrem bi Stat 03/29/22 12:44 Complete Blood Count AUTO DIFF Stat Comprehensive Metabolic Panel Stat Lipase Stat 03/29/22 13:00 Urine Microscopic Stat Discontinued Medications Sodium Chloride (Normal Saline 0.9%) 1,000 mls @ 150 mls/hr IV CONT KASHMIR Last Infusion: 03/29/22 15:04 Dose: 0 mls/hr Documented By: Admin: 03/29/22 12:07 Dose: 150 mls/hr Documented By: KB Morphine Sulfate (Morphine 2 Mg/Ml Inj) 2 mg IV NOW ONE Stop: 03/29/22 11:27 Last Admin: 03/29/22 12:32 Dose: 2 mg Documented By: OW Vital Signs Vital signs: Vital Signs - 8 hr 03/29/22 12:52 03/29/22 12:52 03/29/22 13:13 Pulse Rate 64 69 59 L Respiratory Rate 20 Blood Pressure 170/78 H Pulse Oximetry 98 98 99 Oxygen Delivery Method Room Air 03/29/22 13:14 03/29/22 13:14 03/29/22 13:30 Pulse Rate 60 Respiratory Rate Blood Pressure 198/81 H 181/78 H Pulse Oximetry 98 Oxygen Delivery Method 03/29/22 13:30 03/29/22 14:00 03/29/22 14:00 Pulse Rate 68 66 Respiratory Rate Blood Pressure 189/85 H Pulse Oximetry 97 98 Oxygen Delivery Method 03/29/22 14:30 03/29/22 14:30 Pulse Rate 64 Respiratory Rate Blood Pressure 177/83 H Pulse Oximetry 98 Oxygen Delivery Method MDM - Extremity Injury (Lower) Lab Data Result diagrams: 03/29/22 12:44 03/29/22 12:44 Labs: Lab Results 03/29/22 03/29/22 03/29/22 Range/Units 12:44 12:44 13:00 WBC 6.1 (4.5-11.0) X10^3/uL RBC 3.24 L (4.0-5.2) X10^6/uL Hgb 10.6 L (12.0-16.0) g/dL Hct 31.4 L (36-46) % MCV 97.0 (80-100) fL MCH 32.8 (26-34) PG MCHC 33.8 (30-36) % RDW 15.4 H (11.6-14.8) % Plt Count 196 (150-400) X10^3/uL Neut % (Auto) 81.7 H (50-75) % Lymph % (Auto) 9.8 L (25-40) % Mcminn % (Auto) 6.2 (3-14) % Eos % (Auto) 0.4 L (2-4) % Baso % (Auto) 1.9 (0-2) % Neut # (Auto) 5000 (1091-4507) /uL Lymph # (Auto) 600 L (8362-3747) /uL Mcminn # (Auto) 400 (0-900) /uL Eos # (Auto) 0 (0-450) /uL Baso # (Auto) 100 (0-100) /uL Sodium 134 L (137-145) mmol/L Potassium 4.5 (3.4-5.1) mmol/L Chloride 103 (98-107) mmol/L Carbon Dioxide 22 (22-32) mmol/L BUN 21 H (7-17) mg/dL Creatinine 0.75 (0.52-1.04) mg/dL Estimated GFR > 60 (>60) mL/min BUN/Creatinine Ratio 28.0 H (6-22) Glucose 109 (80-110) mg/dL Calcium 8.5 (8.4-10.2) mg/dL Total Bilirubin 0.6 (0.2-1.3) mg/dL AST 31 (14-36) IU/L ALT 15 (<35) IU/L Alkaline Phosphatase 90 (38-126) U/L Total Protein 7.0 (6.3-8.2) g/dL Albumin 4.0 (3.5-5.0) g/dL Globulin 3.0 (1.7-4.1) g/dL Albumin/Globulin Ratio 1.3 (1.0-2.8) Lipase 81 (23-300) U/L Urine RBC 0-1/hpf (0-5/HPF) Urine WBC None seen (0-5/HPF) Urine Bacteria None seen (None) Ur Culture Indicated? Cult not indicated Urine Dip Bedside Urine Glucose Negative Bedside Urine Bilirubin - Negative Bedside Urine Ketone - Negative Urine Specific [place] 1.015 Bedside Urine Occult Blood + Bedside Urine pH 7.0 Bedside Urine Protein ++ 100 Bedside Urine Urobilinogen - Negative Bedside Urine Nitrite - Negative Bedside Urine Leukocytes - Negative Esterase Imaging Data CT scan - abdomen/pelvis: Radiologist's Impression: CT Scan Report Signed Patient: Betsy Schmid MR#: [id number] : 1940 Acct:[id number] Age/Sex: 82 / F Date of Service: 03/29/22 Loc: ED Accession Number: [id number] ?? Procedure: CT abdomen pelvis w con Ordering Provider: Isabela Calderon D.O. PROCEDURE:? CT ABDOMEN PELVIS W CON ? INDICATIONS:? Metastatic ovarian cancer, increased right groin pain ? TECHNIQUE:? After the administration of oral and IV contrast, axial sections were acquired from the lung bases to the pubic symphysis.? Coronal and sagittal reformats were performed.? For radiation dose reduction, the following was used:? automated exposure control, adjustment of mA and/or kV according to patient size. ? COMPARISON:? Outside Facility, , CT THORAX/ABDOMEN/PELVIS WITH CONTRAST, , 11:26.? [facility], CT, ABDOMEN/PELVIS WITH CONTRAST, 03/20/2016, 11:59.? [facility], CR, XR HIP W PEL IF DONE RT 2V, 03/29/2022, 11:52. ? FINDINGS:? Image quality:? Excellent.? ? Lung bases:? Unremarkable.? ? Heart:? No significant findings. ? ? ABDOMEN: Liver:? Unremarkable.? ? Gallbladder:? Unremarkable.? ? Biliary ducts:? Unremarkable.? ? Pancreas:? Unremarkable.? ? Spleen:? Unremarkable.? ? Adrenal Glands:? Unremarkable.? ? Kidneys and Ureters:? Along the inferior lateral right kidney, there is a simple appearing water density nonenhancing renal cyst that measures 2.2 cm. ? Stomach and Bowel:? Postoperative change is seen of the stomach, which is attributed to gastric bypass surgery. No dilated loops of small bowel are seen. No significant colonic abnormality can be seen. Peritoneum:? No free air is seen.? There is a small amount of ascites. ? Ventral Wall: ? No hernia.? Abdominal Nodes:? No retroperitoneal or mesenteric adenopathy by size criteria.? Vessels:? Aorta and inferior vena cava are normal in size.? ? PELVIS: Pelvic Organs:? This patient is status post hysterectomy. No adnexal masses are seen.? Bladder:? Unremarkable.? ? Pelvic Nodes: No enlarged lymph nodes.? Miscellaneous: No inguinal hernias are seen. ? ? ? Bones:? In this patient with this given history, scrutiny is given to bones of the pelvis, including the right proximal femur.? There is no greater trochanter fracture.? Generalized degenerative changes are seen, without displaced fractures or suspicious lytic or blastic lesions. Note is made of osteitis pubis, which is not considered to be frankly abnormal in a woman of this age.? ? There is postoperative change of the left greater trochanter. ? Postoperative change is seen of the L4-L5 level.? There is moderate dextroconvex scoliosis.? Age-appropriate bony degenerative changes are seen.? ? ? IMPRESSION:? A cause of right groin pain is not seen.? No suspicious bony abnormality is seen. ? No right greater trochanter fracture is seen. ? Hysterectomy, without adnexal masses seen. ? Incidental note is made of: Apparent bariatric surgery Right renal cyst Dextroconvex scoliosis L4-5 postoperative change Left greater trochanter postoperative change. ? ? Dictated by: Steven Tran M.D. on 03/29/2022 at 11:21 ? ? Approved by: Steven Tran M.D. on 03/29/2022 at 11:26 ? US - DVT: Radiologist's Impression: Ultrasound Report Signed Patient: Betsy Schmid MR#: [id number] : 1940 Acct:[id number] Age/Sex: 82 / F Date of Service: 03/29/22 Loc: ED Accession Number: [id number] ?? Procedure: US periph venous low extrem bi Ordering Provider: Isabela Calderon D.O. PROCEDURE:? US PERIPH VENOUS LOW EXTREM BI ? INDICATIONS:? swelling pain ? TECHNIQUE:? Real-time imaging, as well as color and pulse Doppler interrogation, were performed of the deep veins of both legs from the inguinal ligament to the popliteal fossa.? ? COMPARISON:? [facility], PERIPH VENOUS LOW EXTREM LT, 09/28/2019, 13:43.? [facility], PERIPH.QUYNH EXT BILAT, 03/01/2014, 15:03.? [facility], CR, XR HIP W PEL IF DONE RT 2V, 03/29/2022, 11:52.? [facility], CT, CT ABDOMEN PELVIS W CON, 03/29/2022, 11:37. ? FINDINGS:? ? Right: The common femoral, femoral and popliteal veins are normally compressible, and free of intraluminal thrombus.? Color and pulse Doppler demonstrate normal phasic intravascular flow.? There is normal augmentation response to distal compression maneuver.? ? Left: The common femoral, femoral and popliteal veins are normally compressible, and free of intraluminal thrombus.? Color and pulse Doppler demonstrate normal phasic intravascular flow.? There is normal augmentation response to distal compression maneuver.? ? ? IMPRESSION:? ? Negative for deep venous thrombosis involving either lower extremity. ? ? Dictated by: Steven Tran M.D. on 03/29/2022 at 11:31 Extremity x-ray #1: Radiologist's Impression: Signed Patient: Betsy Schmid MR#: [id number] : 1940 Acct:[id number] Age/Sex: 82 / F Date of Service: 03/29/22 Loc: ED Accession Number: [id number] ?? Procedure: XR hip w pel if done RT 2V Ordering Provider: Isabela Calderon D.O. PROCEDURE:? XR HIP W PEL IF DONE RT 2V ? INDICATIONS:? pain, cancer ? TECHNIQUE:? AP pelvis with lateral view(s) of the right hip(s).? ? COMPARISON:? Outside Facility, RG, CT THORAX/ABDOMEN/PELVIS WITH CONTRAST, 07/09/2021, 11:26.? [facility], CR, XR HIP W PEL IF DONE DEYANIRA 3TO4V, 02/14/2022, 12:36. ? FINDINGS:? ? Bones:? There is an apparent mildly displaced fracture seen involving the right greater trochanter.? Pelvic ring appears intact.? ? Generalized degenerative changes are seen. ? Postoperative change is seen of the left lower lumbar spine and the left greater trochanter. ? Soft tissues:? The visualized bowel gas pattern is normal.? No suspicious soft tissue calcifications.? ? ? IMPRESSION:? Apparent mildly displaced fracture involving the right greater trochanter. ? If it would be helpful for clinical management decision making in this patient with this given history, please consider a dedicated CT for further evaluation. ? Postoperative and degenerative changes are seen.? Dictated by: Steven Tran M.D. on 03/29/2022 at 10:19 ?? [facility] Narrative Medical decision making narrative: Patient is a bharati 82-year-old female chronically ill with groin pain. CT blood work is negative. She does have chronic ongoing lower extremity edema but today negative for DVT. She does not describe pain is sharp and shooting nerve like it is a dull ache and has difficult time getting into a comfortable position. She thinks it might be nerve she may have had this before. She is given a small dose of morphine here which does seem to help. She was worried ab out taking any kind of pain medication could she was warned about Avastin. Which can cause thrombocytopenia admitting other side effects. However Tylenol should not interact nor should open in fact she was told to take Tylenol if needed for pain to that all she has been taking. Will give her some hydrocodone so she can get some rest and relief Discharge Plan Departure Patient Disposition: Home Clinical Impression: Acute hip pain Instructions: DI for Hip Pain Activity Restrictions/Additional Instructions: *You have been diagnosed with hip pain *What to do: At this time blood work and scans are overall reassuring no cause of acute hip pain *Continue to take medications as directed [place] 1 tablet every 6 hours if needed for severe pain--> SENT TO [facility] *Follow up with your primary care provider in 2-3 days or call [phone] *Return to ER if you should have increasing pain, or any new, worsening or concerning symptoms CONTROLLED SUBSTANCE DISCHARGE (Narcotoic/benzodiazepine/Flexeril/Phenergan) 1. You have been prescribed narcotic medications, it does have acetaminophen/ Tylenol/paracetamol in it, DO NOT TAKE MORE THAN 4,00mg in 24 hours of Tylenol. TRAMADOL DOES NOT CONTAIN TYLENOL 2. Please understand that we cannot provide further refills of narcotics, benzodiazepines or controlled substances through the ED and her pain management will need to be through your provider. 3. While on these medications you cannot drive or operate heavy machinery. 4. You cannot sign legal documents or perform any duties such as this. 5. As long as you're taking opiate pain medications he should also be taking a stool softener such as Colace, Dulcolax, MiraLAX or prune juice, to help avoid constipation. Prescriptions: New hydrocodone-acetaminophen 5-325 mg tablet 1 tab PO Q6H PRN (Reason: pain) Qty: 10 0RF No Action mupirocin 2 % ointment 1 applic topical BID Qty: 60 0RF telmisartan 40 mg tablet 40 mg PO BID hydrochlorothiazide 12.5 mg capsule 12.5 mg PO DAILY felodipine 5 mg tablet extended release 24 hr 5 mg PO DAILY carvedilol 12.5 mg tablet 12.5 mg PO QAM Rx Instructions: 1 tablet Qam / 1/2 tablet Qpm prochlorperazine maleate [Compazine] 10 mg tablet 10 mg PO Q6H PRN carvedilol 12.5 mg Tablet 6.25 mg PO QPM acetaminophen [Tylenol] 325 mg capsule 650 mg PO QID PRN (Reason: pain) Qty: 60 0RF sulfamethoxazole-trimethoprim [Bactrim DS] 800-160 mg tablet 1 tab PO Q12H Qty: 10 0RF docusate sodium [Colace] 100 mg capsule 100 mg PO BID Qty: 30 0RF Referrals: Chuy Gudino MD [Primary Care Provider] - Visit Report Forms: Patient Portal/API
--- NOTE | 2022-03-29 11:26 | DI.CT.S_ITS ---
PROCEDURE: CT ABDOMEN PELVIS W CON INDICATIONS: Metastatic ovarian cancer, increased right groin pain TECHNIQUE: After the administration of oral and IV contrast, axial sections were acquired from the lung bases to the pubic symphysis. Coronal and sagittal reformats were performed. For radiation dose reduction, the following was used: automated exposure control, adjustment of mA and/or kV according to patient size. COMPARISON: Outside Facility, , CT THORAX/ABDOMEN/PELVIS WITH CONTRAST, 07/09/2021, 11:26. [facility], CT, ABDOMEN/PELVIS WITH CONTRAST, 03/20/2016, 11:59. [facility], CR, XR HIP W PEL IF DONE RT 2V, 03/29/2022, 11:52. FINDINGS: Image quality: Excellent. Lung bases: Unremarkable. Heart: No significant findings. ABDOMEN: Liver: Unremarkable. Gallbladder: Unremarkable. Biliary ducts: Unremarkable. Pancreas: Unremarkable. Spleen: Unremarkable. Adrenal Glands: Unremarkable. Kidneys and Ureters: Along the inferior lateral right kidney, there is a simple appearing water density nonenhancing renal cyst that measures 2.2 cm. Stomach and Bowel: Postoperative change is seen of the stomach, which is attributed to gastric bypass surgery. No dilated loops of small bowel are seen. No significant colonic abnormality can be seen. Peritoneum: No free air is seen. There is a small amount of ascites. Ventral Wall: No hernia. Abdominal Nodes: No retroperitoneal or mesenteric adenopathy by size criteria. Vessels: Aorta and inferior vena cava are normal in size. PELVIS: Pelvic Organs: This patient is status post hysterectomy. No adnexal masses are seen. Bladder: Unremarkable. Pelvic Nodes: No enlarged lymph nodes. Miscellaneous: No inguinal hernias are seen. Bones: In this patient with this given history, scrutiny is given to bones of the pelvis, including the right proximal femur. There is no greater trochanter fracture. Generalized degenerative changes are seen, without displaced fractures or suspicious lytic or blastic lesions. Note is made of osteitis pubis, which is not considered to be frankly abnormal in a woman of this age. There is postoperative change of the left greater trochanter. Postoperative change is seen of the L4-L5 level. There is moderate dextroconvex scoliosis. Age-appropriate bony degenerative changes are seen. IMPRESSION: A cause of right groin pain is not seen. No suspicious bony abnormality is seen. No right greater trochanter fracture is seen. Hysterectomy, without adnexal masses seen. Incidental note is made of: Apparent bariatric surgery Right renal cyst Dextroconvex scoliosis L4-5 postoperative change Left greater trochanter postoperative change. Dictated by: Steven Tran M.D. on 03/29/2022 at 11:21 Approved by: Steven Tran M.D. on 03/29/2022 at 11:26
--- NOTE | 2022-03-29 11:30 | DI.US.S_ITS ---
PROCEDURE: US PERIP VENOUS LOW EXTREM BI INDICATIONS: swelling pain TECHNIQUE: Real-time imaging, as well as color and pulse Doppler interrogation, were performed of the deep veins of both legs from the inguinal ligament to the popliteal fossa. COMPARISON: [facility], , US PERIP VENOUS LOW EXTREM LT, 09/28/2019, 13:43. [facility], , PERIPH.QUYNH EXT BILAT, 03/01/2014, 15:03. [facility], CR, XR HIP W PEL IF DONE RT 2V, 03/29/2022, 11:52. [facility], CT, CT ABDOMEN PELVIS W CON, 03/29/2022, 11:37. FINDINGS: Right: The common femoral, femoral and popliteal veins are normally compressible, and free of intraluminal thrombus. Color and pulse Doppler demonstrate normal phasic intravascular flow. There is normal augmentation response to distal compression maneuver. Left: The common femoral, femoral and popliteal veins are normally compressible, and free of intraluminal thrombus. Color and pulse Doppler demonstrate normal phasic intravascular flow. There is normal augmentation response to distal compression maneuver. IMPRESSION: Negative for deep venous thrombosis involving either lower extremity. Dictated by: Steven Tran M.D. on 03/29/2022 at 11:31 Approved by: Steven rTan M.D. on 03/29/2022 at 11:32
[2022-03-29] MEDS: SODIUM CHLORIDE 0.9% 1,000 ML 150 ML IV (12:07)
--- NOTE | 2022-03-29 12:30 | PC.NURSE ---
Pt initially declined morphine but recently changed her mind and now wants the medication. MAR indicated not given but reversed so med could be given.
[2022-03-29] MEDS: MORPHINE 2 MG/ML INJ IV (12:32)
[2022-03-29 12:54] LABS: Add Manual Diff / Slide Review NO; Basophils Absolute Auto 100 /uL (0-100); Basophils Percent Auto 1.9 % (0-2); Eosinophils Absolute Auto 0 /uL (0-450); Eosinophils Percent Auto 0.4 % (2-4); Hematocrit 31.4 % (36-46); Hemoglobin 10.6 g/dL (12.0-16.0); Lymphocytes Absolute Auto 600 /uL (1100-4500); Lymphocytes Percent Auto 9.8 % (25-40); Mean Corpuscular HGB Conc 33.8 % (30-36); Mean Corpuscular Hemoglobin 32.8 PG (26-34); Monocytes Absolute Auto 400 /uL (0-900); Monocytes Percent Auto 6.2 % (3-14); Neutrophils Absolute Auto 5000 /uL (1500-7000); Neutrophils Percent Auto 81.7 % (50-75); Platelet Count 196 X10^3/uL (150-400); Red Blood Cell Count 3.24 X10^6/uL (4.0-5.2); Red Cell Distribution Width 15.4 % (11.6-14.8); White Blood Cell Count 6.1 X10^3/uL (4.5-11.0)
[2022-03-29 13:03] LABS: Alanine Aminotransferase 15 IU/L (<35); Albumin Globulin Ratio 1.3 (1.0-2.8); Alkaline Phosphatase 90 U/L (38-126); Aspartate Aminotransferase 31 IU/L (14-36); Bilirubin Total 0.6 mg/dL (0.2-1.3); Blood Urea Nitrogen 21 mg/dL (7-17); Calcium 8.5 mg/dL (8.4-10.2); Carbon Dioxide 22 mmol/L (22-32); Chloride 103 mmol/L (98-107); Estimated Glomerular Filt Rate > 60 mL/min (>60); Glucose 109 mg/dL (80-110); HEMOLYSIS 18 (0-50); Lipase 81 U/L (23-300); Potassium 4.5 mmol/L (3.4-5.1); Sodium 134 mmol/L (137-145)
[2022-03-29 13:36] LABS: Bacteria Urine None Seen; Culture Indicated Urine Cult Not Indicated; RBC Urine 0-1/HPF (0-5/HPF); WBC Urine None Seen (0-5/HPF)
--- NOTE | 2022-03-30 14:09 | PC.NURSE ---
Pt called today as she was unable to fill full hydrocodone prescription from single pharmacy. Per ED provider, unable to send another script. Pt encouraged to call PCP for further assistance which she verbalized understanding.
== END 2022-03-29 15:10 | disposition home or self-care (01) ==
PROVIDERS: Emergency Provider Emergency Medicine; Family Provider Internal Medicine; PCP Internal Medicine
DX: M25.551 Pain in right hip (principal); C57.00 Malignant neoplasm of unspecified fallopian tube
CPT/HCPCS: 73502; 74177; 80053; 81003; 81015; 83690; 85025; 93970; 96361; 96374; 99283; 99284; J2270; Q9967

== ENCOUNTER 2022-03-30 18:23 | Inpatient (IN) | payer MEDICARE, BC, SELFPAY ==
[2021-06-04 13:28] VITALS: BMI 17.4
--- NOTE | 2022-03-30 18:27 | DI.MRI.S_ITS ---
PROCEDURE: MR LUMBAR SPINE WO/W CON INDICATIONS: severe radiating pain to both legs, numbness, immune comprom TECHNIQUE: Noncontrast sagittal T1 spin echo and T2 fast spin echo, sagittal STIR, axial T1 and T2 fast spin echo through the lumbar spine. In cases with scoliosis, additional coronal T2 fast spin echo may be performed. After the administration of contrast, sagittal and axial T1 spin echo with fat saturation through the lumbar spine. COMPARISON: [facility], CT, CT ABDOMEN PELVIS W CON, 03/29/2022, 11:37. [facility], MR, MR LUMBAR SPINE WO CON, 01/30/2021, 12:27. [facility], CR, XR LUMBAR SPINE WITH OLBIQUES PLUS FLEXION EXTENSION, 01/20/2021, 15:27. FINDINGS: Image quality: Excellent. Alignment and curvature: There is severe scoliosis. Grade 1 anterolisthesis of L4 on L5 and L5 on S1. Marrow: Marrow is of normal overall signal. No abnormal enhancement. There is a 1 cm T2 hyperintense lesion in T12 and unchanged, most likely a cyst. No acute vertebral body compression fractures. No suspicious marrow enhancement. Spinal cord: Conus medullaris terminates at the L1 level. Visualized spinal cord demonstrates normal signal, without suspicious enhancement. Paraspinous soft tissues: No paravertebral masses or abnormal enhancement. Small paravertebral fluid is noted in the T12-L1 level, minimally visualized. Paravertebral muscle atrophy. There is hepatic steatosis. T12-L1: Normal appearance. L1-L2: Mild loss of disc height and disc desiccation. There is diffuse posterior disc bulge. Mild bilateral facet arthropathy. The central canal is patent. Moderate bilateral foraminal stenosis. L2-L3: Moderate loss of disc height and disc desiccation. There is diffuse posterior disc bulge and disc osteophyte complex. Moderate bilateral facet arthropathy. The central canal is mildly narrowed. Moderate left and ftrw-li-bdgywyia right foraminal stenosis. L3-L4: Left hemilaminectomy. Moderate loss of disc height and disc desiccation. There is diffuse posterior disc bulge and posterior and left lateral disc osteophyte complex. Moderate bilateral facet arthropathy. The central canal is severely narrowed. Severe left and ovvvnlrx-wh-ppnznw right foraminal stenosis. L4-L5: Discectomy and left hemilaminectomy. Cvktrmho-iz-snsbdm loss of disc height and disc desiccation. There is diffuse posterior disc bulge and posterior and left lateral disc osteophyte complex. Severe bilateral facet arthropathy. The central canal is patent. Xuxy-hp-bpsbcuma right foraminal stenosis. The left foramen is patent. L5-S1: Loss of disc height and moderate disc desiccation. There is diffuse posterior disc bulge and posterior and left lateral disc osteophyte complex. Severe bilateral facet arthropathy. The central canal is the narrowed. Severe right and mild left foraminal stenosis. 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 IMPRESSION: 1. Multilevel degenerative disc disease and facet arthropathy as described. 2. Multilevel central canal stenosis as described. 3. Multilevel foraminal stenosis as described. 4. Fluid collection posterior to the T12-L1 level on the left, partially visualized. It appears unchanged compared to 01/30/2021. Etiology is uncertain. If clinically indicated, thoracic spine MRI can be obtained for follow-up. Dictated by: Arash Ayers M.D. on 03/30/2022 at 19:36 Approved by: Arash Ayers M.D. on 03/30/2022 at 20:36
[2022-03-30 18:29] VITALS: BP 200/96; PULSE 78; RESP 18; TEMP 36.5; O2SAT 96; BMI 17.7
[2022-03-30] MEDS: ONDANSETRON 4 MG/2 ML INJ IV (18:41)
[2022-03-30] MEDS: HYDROMORPHONE 0.5 MG INJ IV ×2 (18:43→23:58)
[2022-03-30] MEDS: SODIUM CHLORIDE 0.9% 1,000 ML 125 ML IV (18:43)
[2022-03-30 18:50] LABS: Add Manual Diff / Slide Review NO; Basophils Absolute Auto 100 /uL (0-100); Basophils Percent Auto 1.1 % (0-2); Eosinophils Absolute Auto 0 /uL (0-450); Eosinophils Percent Auto 0.3 % (2-4); Hemoglobin 10.3 g/dL (12.0-16.0); Lymphocytes Absolute Auto 700 /uL (1100-4500); Lymphocytes Percent Auto 8.1 % (25-40); Mean Corpuscular HGB Conc 34.4 % (30-36); Mean Corpuscular Hemoglobin 33.2 PG (26-34); Mean Corpuscular Volume 96.5 fL (80-100); Monocytes Absolute Auto 400 /uL (0-900); Monocytes Percent Auto 4.3 % (3-14); Neutrophils Absolute Auto 7600 /uL (1500-7000); Neutrophils Percent Auto 86.2 % (50-75); Platelet Count 191 X10^3/uL (150-400); Red Blood Cell Count 3.11 X10^6/uL (4.0-5.2); Red Cell Distribution Width 15.2 % (11.6-14.8); White Blood Cell Count 8.8 X10^3/uL (4.5-11.0)
[2022-03-30 19:08] LABS: Alanine Aminotransferase 16 IU/L (<35); Albumin 4.2 g/dL (3.5-5.0); Albumin Globulin Ratio 1.4 (1.0-2.8); Alkaline Phosphatase 98 U/L (38-126); Aspartate Aminotransferase 39 IU/L (14-36); BUN Creatinine Ratio 28.9 (6-22); Bilirubin Total 0.4 mg/dL (0.2-1.3); Blood Urea Nitrogen 28 mg/dL (7-17); C-Reactive Protein Quant 2.7 mg/dL (<1.0); Calcium 8.6 mg/dL (8.4-10.2); Carbon Dioxide 22 mmol/L (22-32); Chloride 101 mmol/L (98-107); Estimated Glomerular Filt Rate 59 mL/min (>60); Glucose 113 mg/dL (80-110); HEMOLYSIS < 15 (0-50); Magnesium 1.9 mg/dL (1.6-2.3); Potassium 4.8 mmol/L (3.4-5.1); Sodium 132 mmol/L (137-145); Total Protein 7.2 g/dL (6.3-8.2)
[2022-03-30 19:12] LABS: Erythrocyte Sedimentation Rate 35 MM/HR (0-20)
[2022-03-30 19:28] LABS: COVID19 -Nasal RAPID Negative (Negative)
--- NOTE | 2022-03-30 19:38 | ED.EXTPRO ---
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 She denies any fall or injury. She was seen and evaluated yesterday for severe right hip pain in the absence of any fall and x-ray suggested the possibility of a nondisplaced right greater trochanter fracture, however CT of the abdomen and pelvis showed no bony abnormality. She states she has severe bilateral hip pain and lower extremity pain with numbness in her groin. She denies fever or chills. She denies any loss of control of bowel or bladder. She had been evaluated yesterday and was able to ambulate, pain control included hydrocodone but has not been sufficient. She presents for repeat evaluation. She denies any runny nose, sore throat or cough. She has no chest pain or shortness of breath. She has some nausea but denies any vomiting or diarrhea. She denies any back pain. She states her pain becomes severe, even intolerable with minimal motion or palpation Related Data Home Medications Medication Instructions Recorded Confirmed telmisartan 40 mg tablet 40 mg PO BID 10/09/20 03/31/22 carvedilol 12.5 mg tablet 12.5 mg PO QAM 04/21/21 03/31/22 felodipine 5 mg tablet,extended 5 mg PO BID 04/21/21 03/31/22 release 24 hr hydrochlorothiazide 12.5 mg capsule 12.5 mg PO DAILY 04/21/21 06/23/21 carvedilol 12.5 mg tablet 6.25 mg PO QPM 05/14/21 03/31/22 prochlorperazine maleate 10 mg 10 mg PO Q6H PRN Nausea 05/26/21 03/31/22 tablet (Compazine) Previous Rx's Medication Instructions Recorded acetaminophen 325 mg capsule 650 mg PO QID PRN pain #60 caps 05/22/21 (Tylenol) docusate sodium 100 mg capsule 100 mg PO BID #30 caps 05/22/21 (Colace) sulfamethoxazole 800 1 tab PO Q12H #10 tabs 05/22/21 mg-trimethoprim 160 mg tablet (Bactrim DS) mupirocin 2 % topical ointment 1 applic topical BID #60 grams 12/17/21 hydrocodone 5 mg-acetaminophen 325 1 tab PO Q6H PRN pain #10 tabs 03/29/22 mg tablet Allergies Allergy/AdvReac Type Severity Reaction Status Date / Time latex [LATEX] Allergy Intermediate RASH Verified 06/23/21 15:07 amoxicillin Allergy Mild Rash Verified 06/23/21 15:07 azithromycin [AZITHROMYCIN] Allergy Mild HIVES Verified 06/23/21 15:07 Penicillins [PENICILLINS] Allergy Mild HIVES/SWELL Verified 06/23/21 15:07 ING hydralazine AdvReac Severe hives Verified 06/23/21 15:07 minoxidil AdvReac Intermediate severe leg Verified 06/23/21 15:07 edema and symptomatic hypotension spironolactone AdvReac Intermediate hyperkalemi Verified 06/23/21 15:07 a HENRY Inhibitors AdvReac Mild COUGH Verified 06/23/21 15:07 [HENRY INHIBITORS] Review of Systems Review of Systems Narrative: GENERAL: See HPI HEENT: Denies sinus pain, ear pain, sore throat, difficulty swallowing, dizziness. RESPIRATORY: Denies dyspnea, cough, wheezing, hemoptysis, sputum. CARDIOVASCULAR: Denies chest pain, palpitations, orthopnea, edema, GASTROINTESTINAL: Denies nausea, vomiting, abdominal pain, diarrhea, constipation, melena. : Denies dysuria, frequency, incontinence, hematuria, urinary retention. MUSCULOSKELETAL: See HPI SKIN: Denies rash, skin lesions, or other NEUROLOGIC: See HPI PSYCHIATRIC: No concerning psychosocial issues. 12 point review of systems is negative except for those stated above Patient History Medical History Arthritis Essential hypertension Fallopian tube carcinoma Ovarian cancer Pulmonary nodule Scoliosis Surgical History History of lung biopsy (2016) History of partial pancreatectomy S/P total abdominal hysterectomy and bilateral salpingo-oophorectomy (~2013) Status post exploratory laparotomy Status post splenectomy (2015) Social History household members: spouse Smoking Status: Former smoker alcohol intake: former Smoking Status: Former smoker alcohol intake frequency: 0-2 drinks per day Substance Use Type: does not use Exam Narrative Exam Narrative: GENERAL: [82] year old patient appears stated age. Thin, chronically ill, obviously in significant pain and very uncomfortable HEAD: Atraumatic. Normocephalic. EYES: Pupils equal round and reactive. Extraocular motions intact. No scleral icterus. No injection or drainage. ENT: Nose without bleeding, purulent drainage. Throat without erythema, tonsillar hypertrophy or exudate. Airway patent. NECK: Trachea midline. Non tender CARDIOVASCULAR: Regular rate and rhythm without murmurs, gallops, or rubs. RESPIRATORY: Clear to auscultation. Breath sounds equal bilaterally. No wheezes, rales, or rhonchi. GASTROINTESTINAL: Abdomen soft, non-tender, nondistended. EXTREMITIES: No edema or joint tenderness. BACK: No midline back tenderness, step-offs or crepitance. no CVA tenderness, or vertebral point tenderness. Palpation to bilateral hips and anterior thighs as well as passive or active range of motion cause exquisite pain. Patient reports numbness though not lack of sensation in her groin. Patient in too much pain to actively flex at the hips. NEURO: Cranial nerves 2-12 grossly intact SKIN: No rash or erythema of visible areas Initial Vital Signs Initial Vital Signs: Vital Signs Temperature 97.7 F 03/30/22 18:29 Pulse Rate 78 03/30/22 18:29 Respiratory Rate 18 03/30/22 18:29 Blood Pressure 200/96 H 03/30/22 18:29 Pulse Oximetry 96 03/30/22 18:29 Oxygen Delivery Method 03/30/22 18:29 Course Orders Ordered: ED Orders 03/30/22 18:38 C-Reactive Protein Quant Stat COVID19 -Nasal RAPID/Pre-Proc Stat Complete Blood Count AUTO DIFF Stat Comprehensive Metabolic Panel Stat Erythrocyte Sedimentation Rate Stat Magnesium Stat Acetaminophen (Acetaminophen 325 Mg Tablet) 975 mg PO Q8HR [facility] Amlodipine Besylate (Amlodipine 5 Mg Tablet) 5 mg PO DAILY [facility] Carvedilol (Carvedilol 12.5 Mg Tablet) 12.5 mg PO DAILY [facility] Carvedilol (Carvedilol 12.5 Mg Tablet) 6.25 mg PO QPM [facility] Docusate Sodium (Docusate 100 Mg Capsule) 100 mg PO BID [facility] Enoxaparin Sodium (Enoxaparin 40 Mg/0.4 Ml Syringe) 40 mg SUBCUT DAILY [facility] Gabapentin (Gabapentin 300 Mg Capsule) 300 mg PO Q12HR [facility] Hydromorphone HCl (Hydromorphone 0.5 Mg Inj) 1 mg IV Q2H PRN PRN Reason: Breakthrough pain only (8-10) Dextrose/Sodium Chloride (Dextrose 5%-0.9% Ns) 1,000 mls @ 84 mls/hr IV CONT [facility] Last Admin: 03/31/22 01:49 Dose: 84 mls/hr Documented By: CS Losartan Potassium (Losartan 50 Mg Tablet) 50 mg PO BID [facility] Magnesium Hydroxide (Magnesium Hydroxide 30 Ml Udc) 30 ml PO DAILY PRN PRN Reason: Constipation Ondansetron HCl (Ondansetron 4 Mg/2 Ml Inj) 4 mg IV Q8HR PRN PRN Reason: Nausea And Vomiting Oxycodone HCl (Oxycodone Ir 5 Mg Tablet) 5 mg PO Q2H PRN PRN Reason: Pain, Moderate (4-6) Discontinued Medications Dexamethasone (Dexamethasone 10 Mg/Ml Vial) 6 mg IV NOW ONE Stop: 03/30/22 20:36 Last Admin: 03/30/22 20:52 Dose: 6 mg Documented By: KEILA Gabapentin (Gabapentin 300 Mg Capsule) 300 mg PO NOW ONE Stop: 03/30/22 20:36 Last Admin: 03/30/22 20:51 Dose: 300 mg Documented By: KEILA Hydromorphone HCl (Hydromorphone 0.5 Mg Inj) 0.5 mg IV NOW ONE Stop: 03/30/22 18:28 Last Admin: 03/30/22 18:43 Dose: 0.5 mg Documented By: NANDA Hydromorphone HCl (Hydromorphone 0.5 Mg Inj) 0.5 mg IV NOW ONE Stop: 03/30/22 23:46 Last Admin: 03/30/22 23:58 Dose: 0.5 mg Documented By: KEILA Sodium Chloride (Normal Saline 0.9%) 1,000 mls @ 125 mls/hr IV CONT [facility] Last Infusion: 03/31/22 00:00 Dose: 0 mls/hr Documented By: Admin: 03/30/22 18:43 Dose: 125 mls/hr Documented By: NANDA Ondansetron HCl (Ondansetron 4 Mg/2 Ml Inj) 4 mg IV NOW ONE Stop: 03/30/22 18:28 Last Admin: 03/30/22 18:41 Dose: 4 mg Documented By: NANDA Reevaluation(s) Reevaluation #1: Patient has had little to no improvement after above-stated therapies. She is unable to even tolerate the amount of pain associated with sitting on a bedside commode. Vital Signs Vital signs: Vital Signs - 8 hr 03/30/22 22:47 Pulse Rate 75 Blood Pressure 193/84 H Pulse Oximetry 95 Oxygen Delivery Method Room Air MDM - Extremity (Nontraumatic) Lab Data Result diagrams: 03/30/22 18:38 03/30/22 18:38 Labs: Lab Results 03/30/22 03/30/22 03/30/22 Range/Units 18:38 18:38 18:38 WBC 8.8 (4.5-11.0) X10^3/uL RBC 3.11 L (4.0-5.2) X10^6/uL Hgb 10.3 L (12.0-16.0) g/dL Hct 30.0 L (36-46) % MCV 96.5 (80-100) fL MCH 33.2 (26-34) PG MCHC 34.4 (30-36) % RDW 15.2 H (11.6-14.8) % Plt Count 191 (150-400) X10^3/uL Neut % (Auto) 86.2 H (50-75) % Lymph % (Auto) 8.1 L (25-40) % [place] % (Auto) 4.3 (3-14) % Eos % (Auto) 0.3 L (2-4) % Baso % (Auto) 1.1 (0-2) % Neut # (Auto) 7600 H (5805-6869) /uL Lymph # (Auto) 700 L (6197-0160) /uL [place] # (Auto) 400 (0-900) /uL Eos # (Auto) 0 (0-450) /uL Baso # (Auto) 100 (0-100) /uL ESR 35 H (0-20) MM/HR Sodium 132 L (137-145) mmol/L Potassium 4.8 (3.4-5.1) mmol/L Chloride 101 (98-107) mmol/L Carbon Dioxide 22 (22-32) mmol/L BUN 28 H (7-17) mg/dL Creatinine 0.97 (0.52-1.04) mg/dL Estimated GFR 59 L (>60) mL/min BUN/Creatinine Ratio 28.9 H (6-22) Glucose 113 H (80-110) mg/dL Calcium 8.6 (8.4-10.2) mg/dL Magnesium 1.9 (1.6-2.3) mg/dL Total Bilirubin 0.4 (0.2-1.3) mg/dL AST 39 H (14-36) IU/L ALT 16 (<35) IU/L Alkaline Phosphatase 98 (38-126) U/L C-Reactive Protein 2.7 H (<1.0) mg/dL Total Protein 7.2 (6.3-8.2) g/dL Albumin 4.2 (3.5-5.0) g/dL Globulin 3.0 (1.7-4.1) g/dL Albumin/Globulin Ratio 1.4 (1.0-2.8) SARS-CoV-2 (PCR) Negative (Negative) Imaging Data Lumbar MRI w/contrast: Radiologist's Impression: [address] [address] Magnetic Resonance Report Signed Patient: Betsy Schmid MR#: [id number] : 1940 Acct:[id number] Age/Sex: 82 / F Date of Service: 03/30/22 Loc: ED Accession Number: [id number] ?? Procedure: MR lumbar spine wo/w con Ordering Provider: Octaviano Santiago D.O. PROCEDURE:? MR LUMBAR SPINE WO/W CON ? INDICATIONS:? severe radiating pain to both legs, numbness, immune comprom ? TECHNIQUE:? Noncontrast sagittal T1 spin echo and T2 fast spin echo, sagittal STIR, axial T1 and T2 fast spin echo through the lumbar spine.? In cases with scoliosis, additional coronal T2 fast spin echo may be performed.? After the administration of contrast, sagittal and axial T1 spin echo with fat saturation through the lumbar spine.? ? COMPARISON:? [facility], CT, CT ABDOMEN PELVIS W CON, 03/29/2022, 11:37.? [facility], MR, MR LUMBAR SPINE WO CON, 01/30/2021, 12:27.? [facility], CR, XR LUMBAR SPINE WITH OLBIQUES PLUS FLEXION EXTENSION, 01/20/2021, 15:27. ? FINDINGS:? Image quality:? Excellent.? ? Alignment and curvature:? There is severe scoliosis.? Grade 1 anterolisthesis of L4 on L5 and L5 on S1.? ? Marrow:? Marrow is of normal overall signal.? No abnormal enhancement.? There is a 1 cm T2 hyperintense lesion in T12 and unchanged, most likely a cyst.? No acute vertebral body compression fractures.? No suspicious marrow enhancement.? ? Spinal cord:? Conus medullaris terminates at the L1 level.? Visualized spinal cord demonstrates normal signal, without suspicious enhancement.? ? Paraspinous soft tissues:? No paravertebral masses or abnormal enhancement.? Small paravertebral fluid is noted in the T12-L1 level, minimally visualized.? Paravertebral muscle atrophy.? There is hepatic steatosis. ? T12-L1:? Normal appearance.? ? L1-L2:? Mild loss of disc height and disc desiccation.? There is diffuse posterior disc bulge.? Mild bilateral facet arthropathy.? The central canal is patent.? Moderate bilateral foraminal stenosis.? ? L2-L3:? Moderate loss of disc height and disc desiccation.? There is diffuse posterior disc bulge and disc osteophyte complex.? Moderate bilateral facet arthropathy.? The central canal is mildly narrowed.? Moderate left and chvl-nz-pyrywrhn right foraminal stenosis.? ? L3-L4:? Left hemilaminectomy.? Moderate loss of disc height and disc desiccation.? There is diffuse posterior disc bulge and posterior and left lateral disc osteophyte complex.? Moderate bilateral facet arthropathy.? The central canal is severely narrowed.? Severe left and mdlxxeua-xu-vcknin right foraminal stenosis.? ? L4-L5:? Discectomy and left hemilaminectomy.? Bujbwsnz-jl-tvuzzx loss of disc height and disc desiccation.? There is diffuse posterior disc bulge and posterior and left lateral disc osteophyte complex.? Severe bilateral facet arthropathy.? The central canal is patent.? Fkxs-hu-neikglal right foraminal stenosis.? The left foramen is patent. ? L5-S1:? Loss of disc height and moderate disc desiccation.? There is diffuse posterior disc bulge and posterior and left lateral disc osteophyte complex.? Severe bilateral facet arthropathy.? The central canal is the narrowed.? Severe right and mild left foraminal stenosis.? 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 ? ? IMPRESSION:? ? 1. Multilevel degenerative disc disease and facet arthropathy as described. ? 2. Multilevel central canal stenosis as described. ? 3. Multilevel foraminal stenosis as described. ? 4. Fluid collection posterior to the T12-L1 level on the left, partially visualized.? It appears unchanged compared to 01/30/2021.? Etiology is uncertain.? If clinically indicated, thoracic spine MRI can be obtained for follow-up.? Dictated by: Arash Ayers M.D. on 03/30/2022 at 19:36 ? ? Approved by: Arash Ayers M.D. on 03/30/2022 at 20:36 ? MDM Narrative Medical decision making narrative: Patient has had multiple visits recently and multiple imaging modalities without obvious explanation of pain. Though yesterday there was some question on an x-ray of a nondisplaced greater trochanteric fracture a subsequent CT did not demonstrate fracture. Elements of her exam are certainly concerning for a lumbar radiculopathy and a lumbar MRI was performed today with contrast demonstrates no evidence of a neurosurgical emergency such as abscess or cauda equina. Patient pain is intractable in preventing her from ambulating, she will require hospitalization for pain control, gait evaluation and further evaluation Discharge Plan Departure Patient Disposition: Admitted as Observation Clinical Impression: Acute pain of right hip, Intractable pain Admit Date/Time: 03/30/22 23:56 Admit Provider: Chuy Gudino
[2022-03-30] MEDS: GABAPENTIN 300 MG CAPSULE PO (20:51)
[2022-03-30] MEDS: DEXAMETHASONE 10 MG/ML VIAL 6 MG IV (20:52)
[2022-03-30 22:47] VITALS: BP 193/84; PULSE 75; O2SAT 95
[2022-03-31 00:05] VITALS: BP 181/79; PULSE 63
[2022-03-31 00:20] LABS: Appearance Urine UA CLEAR; Bilirubin Urine UA NEGATIVE (NEGATIVE); Color Urine UA YELLOW; Glucose Urine UA NEGATIVE (Negative); Ketones Urine UA TRACE (NEGATIVE); Leukocyte Esterase Urine UA NEGATIVE (NEGATIVE); Nitrite Urine UA NEGATIVE (Negative); Occult Blood Urine UA 2+ (Negative); Protein Urine UA 2+ (Negative); Specific Gravity Urine UA 1.015 (1.000-1.035); Urobilinogen Urine UA 0.2 E.U./dL (0.2)
[2022-03-31 00:29] LABS: Bacteria Urine Occasional (0-1); Hyaline Casts Urine 0-1/LPF; RBC Urine 0-1/HPF (0-5/HPF); Squamous Epithelial Cell Urine 0-1 /HPF (0-5/HPF); WBC Urine None Seen (0-5/HPF)
[2022-03-31 00:30] LABS: Culture Indicated Urine Cult Not Indicated
[2022-03-31 00:46] VITALS: BMI 17.7
[2022-03-31 01:00] VITALS: BP 189/70; PULSE 81; RESP 25; TEMP 37.1; O2SAT 94
[2022-03-31] MEDS: DEXTROSE 5%-0.9% NS 1,000 ML 84 ML IV ×2 (01:49→16:57)
[2022-03-31] MEDS: OXYCODONE IR 5 MG TABLET PO ×3 (04:36→17:45)
[2022-03-31] MEDS: ACETAMINOPHEN 325 MG TABLET 975 MG PO ×3 (05:46→21:11)
--- NOTE | 2022-03-31 07:29 | PM.HP.1 ---
History of Present Illness History of Present Illness Date Patient Seen: 03/31/22 Time Patient Seen: 07:29 Chief complaint: Increased right hip pain Narrative: Patient admitted after presenting for the second straight day with severe right-sided hip or groin pain. She is unable to walk or ambulate. She says she has both pain and some element of weakness and she can not really tell the difference. In her head this is some progression of a neuropathic kind of pain she is had for long time but obviously is tremendously worse. she denies any difficulty with bowel or bladder control. Says her sensation appears to be altered in her right lower extremity compared to left although has not completely numb but is different. This is also somewhat new but also somewhat a progression of what she describes as her neuropathy as well. ER evaluation done day before admission and day of admission ruled out DVT or bony issue. CT scan failed to identify any bony abnormality either fracture or related to her known recurrent fallopian tube cancer. MRI of the lumbar spine also failed to reveal an etiology for ongoing symptoms. She really failed to improve after being given IV steroids and modest doses of IV narcotics. 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 She is felt to have recurrence of her cancer based on rising CA 125 levels as well as evidence of additional findings on CT scan based imaging. Patient with known severe left greater than right lower extremity lymphedema thought secondary to her issues in her pelvis. Also has had chronic hip pain evaluated by Ortho locally not felt to be a candidate for intervention Patient History Medical History (Updated 03/31/22 @ 08:08 by Chuy Gudino MD) Arthritis Essential hypertension Fallopian tube carcinoma Pulmonary nodule Scoliosis Surgical History History of lung biopsy (2016) History of partial pancreatectomy S/P total abdominal hysterectomy and bilateral salpingo-oophorectomy (~2013) Status post exploratory laparotomy Status post splenectomy (2016) Family & Social History Social History: household members spouse Prior Living Arrangements House Safety & Behavioral: Feels Safe in Current Yes Environment Tobacco & Substance use: Smoking Status Former smoker alcohol intake former alcohol intake frequency 0-2 drinks per day Substance Use Type does not use Meds Home Medications and Allergies Home Medications Medication Instructions Recorded Confirmed Type telmisartan 40 mg tablet 40 mg PO BID 10/09/20 03/31/22 History carvedilol 12.5 mg tablet 12.5 mg PO QAM 04/21/21 03/31/22 History felodipine 5 mg tablet,extended 5 mg PO BID 04/21/21 03/31/22 History release 24 hr hydrochlorothiazide 12.5 mg capsule 12.5 mg PO DAILY 04/21/21 06/23/21 History carvedilol 12.5 mg tablet 6.25 mg PO QPM 05/14/21 03/31/22 History acetaminophen 325 mg capsule 650 mg PO QID PRN pain #60 caps 05/22/21 03/31/22 Rx (Tylenol) docusate sodium 100 mg capsule 100 mg PO BID #30 caps 05/22/21 03/31/22 Rx (Colace) sulfamethoxazole 800 1 tab PO Q12H #10 tabs 05/22/21 03/31/22 Rx mg-trimethoprim 160 mg tablet (Bactrim DS) prochlorperazine maleate 10 mg 10 mg PO Q6H PRN Nausea 05/26/21 03/31/22 History tablet (Compazine) mupirocin 2 % topical ointment 1 applic topical BID #60 grams 12/17/21 03/31/22 Rx hydrocodone 5 mg-acetaminophen 325 1 tab PO Q6H PRN pain #10 tabs 03/29/22 03/31/22 Rx mg tablet Allergies Allergy/AdvReac Type Severity Reaction Status Date / Time latex [LATEX] Allergy Intermediate RASH Verified 06/23/21 15:07 amoxicillin Allergy Mild Rash Verified 06/23/21 15:07 azithromycin [AZITHROMYCIN] Allergy Mild HIVES Verified 06/23/21 15:07 Penicillins [PENICILLINS] Allergy Mild HIVES/SWELL Verified 06/23/21 15:07 ING hydralazine AdvReac Severe hives Verified 06/23/21 15:07 minoxidil AdvReac Intermediate severe leg Verified 06/23/21 15:07 edema and symptomatic hypotension spironolactone AdvReac Intermediate hyperkalemi Verified 06/23/21 15:07 a HENRY Inhibitors AdvReac Mild COUGH Verified 06/23/21 15:07 [HENRY INHIBITORS] Review of Systems Review of Systems ROS: Yes All systems reviewed with the patient and are negative except as otherwise documented Exam Vital Signs (past 8 hours): - 03/31/22 00:05 03/31/22 01:00 Temperature 98.8 F Pulse Rate 63 81 Respiratory Rate 25 H Blood Pressure 181/79 H 189/70 H Pulse Oximetry 94 Oxygen Flow Rate 0 Oxygen Delivery Method Room Air Oxygen Flow Rate 0 Narrative Exam Narrative: elderly female in no obvious distress lying in hospital bed not really moving HEENT- unremarkable Lungs- clear with good breath sounds Heart-regular rate and rhythm Abdomen- benign Extremities- 3+ pitting edema left lower extremity to the knee, 1+ edema right lower extremity to the knee. Seems to have diminished strength in the right lower leg compared to left Neuro- alert orient x3 no cranial nerve defects. Gait not tested but seems to have decreased muscle strength in right lower extremity compared to left as above Objective Labs Result Diagrams: 03/30/22 18:38 03/30/22 18:38 Labs: Laboratory Results - last 24 hr 03/30/22 03/30/22 03/30/22 18:38 18:38 18:38 WBC 8.8 RBC 3.11 L Hgb 10.3 L Hct 30.0 L MCV 96.5 MCH 33.2 MCHC 34.4 RDW 15.2 H Plt Count 191 Neut % (Auto) 86.2 H Lymph % (Auto) 8.1 L Levy % (Auto) 4.3 Eos % (Auto) 0.3 L Baso % (Auto) 1.1 Neut # (Auto) 7600 H Lymph # (Auto) 700 L Levy # (Auto) 400 Eos # (Auto) 0 Baso # (Auto) 100 ESR 35 H Sodium 132 L Potassium 4.8 Chloride 101 Carbon Dioxide 22 BUN 28 H Creatinine 0.97 Estimated GFR 59 L BUN/Creatinine Ratio 28.9 H Glucose 113 H Calcium 8.6 Magnesium 1.9 Total Bilirubin 0.4 AST 39 H ALT 16 Alkaline Phosphatase 98 C-Reactive Protein 2.7 H Total Protein 7.2 Albumin 4.2 Globulin 3.0 Albumin/Globulin Ratio 1.4 Urine Color Urine Appearance Urine pH Ur Specific [place] Urine Protein Urine Glucose (UA) Urine Ketones Urine Occult Blood Urine Nitrate Urine Bilirubin Urine Urobilinogen Ur Leukocyte Esterase Urine RBC Urine WBC Ur Squamous Epith Cells Urine Bacteria Hyaline Casts Ur Culture Indicated? SARS-CoV-2 (PCR) Negative 03/31/22 00:00 WBC RBC Hgb Hct MCV MCH MCHC RDW Plt Count Neut % (Auto) Lymph % (Auto) Levy % (Auto) Eos % (Auto) Baso % (Auto) Neut # (Auto) Lymph # (Auto) Levy # (Auto) Eos # (Auto) Baso # (Auto) ESR Sodium Potassium Chloride Carbon Dioxide BUN Creatinine Estimated GFR BUN/Creatinine Ratio Glucose Calcium Magnesium Total Bilirubin AST ALT Alkaline Phosphatase C-Reactive Protein Total Protein Albumin Globulin Albumin/Globulin Ratio Urine Color Yellow Urine Appearance Clear Urine pH 5.0 Ur Specific [place] 1.015 Urine Protein 2+ H Urine Glucose (UA) Negative Urine Ketones Trace H Urine Occult Blood 2+ H Urine Nitrate Negative Urine Bilirubin Negative Urine Urobilinogen 0.2 Ur Leukocyte Esterase Negative Urine RBC 0-1/hpf Urine WBC None seen Ur Squamous Epith Cells 0-1 /hpf Urine Bacteria Occasional (0-1) Hyaline Casts 0-1/lpf Ur Culture Indicated? Cult not indicated SARS-CoV-2 (PCR) Assessment & Plan Assessment & Plan narrative: 1. Severe right hip/groin pain-unclear etiology at this point. I have to believe it is related either her biologic medications for her malignancy of which myalgias arthralgias etcetera are significant known side effect or perhaps there is some evidence of disease although this point imaging fails to demonstrate any abnormalities within the bone or even soft tissues either in the lumbar spine with radicular radiating kind of symptoms or within the hip and pelvis itself. This certainly seems like a neurologic source of symptoms and I think we need some sort of imaging of the lumbosacral plexus and MRI is going to be the definitive modality for this. Will go ahead and order an MRI of the pelvis specifically asking to look at the lumbosacral plexus. For now we need to control her pain I will continue her on oral steroids as well as some gabapentin as well as oral opiate narcotics and if necessary parental opiate narcotics. She will need to be seen by Physical therapy to help evaluate her current status and next steps 2. Hypertension-patient has had severe difficult to control hypertension previously. Her current medication appears to be the best regimen we come up with. She is generally somewhat hypertensive on a good day. Continue to monitor her numbers knowing that some of her hypertension is likely secondary to her pain issues there 3. VTE prophylaxis-Lovenox make sense although will need to watch her blood counts having received her infusions for her fallopian tube cancer less than a week ago 4. Code status- patient has pretty clear with her current status that she would be unlikely to survive a cardiac or respiratory event returned to her previous level of functioning. She does have a disabled home she is primary caregiver for but recognizes she needs to take care of herself as well. In the and she is pretty clear and jose that she would not want to be resuscitated in the event of a sudden cardiac or respiratory arrest and so she is made a no code /do not resuscitate for the purposes this hospitalization COVID-19 COVID-19 status: Negative Result date/Date tested (Pos, Neg/Pending): 03/30/22 Quality VTE Deep Vein Thrombosis/Pulmonary Embolism Present on Admission: No
[2022-03-31 08:00] VITALS: BP 159/66; PULSE 67; RESP 17; TEMP 37.1; O2SAT 95
--- NOTE | 2022-03-31 08:03 | DI.MRI.S_ITS ---
PROCEDURE: MR PELIS WO/W CON INDICATIONS: right lumbosacral neuropathy TECHNIQUE: Noncontrast coronal T1 spin echo and STIR, sagittal T1 spin echo with fat saturation and STIR, axial T1 spin echo and T2 fast spin echo with fat saturation, axial T1 gradient echo in and out of phase, and axial diffusion-weighted imaging through the pelvis. Additional noncontrast coronal and T2 fast spin echo with fat saturation and sagittal T1 spin echo through the right hip. After the administration of contrast, axial/sagittal/coronal T1 spin echo with fat saturation through the pelvis. COMPARISON: [facility], CT, CT ABDOMEN PELVIS W CON, 03/29/2022, 11:37. [facility], CR, XR HIP W PEL IF DONE RT 2V, 03/29/2022, 11:52. FINDINGS: Image quality: Excellent. Bones: There is a displaced subcapital fracture of the right proximal femur that is new or newly displaced when compared to the radiographs from 03/29/2022. The femoral neck component is proximally displaced by up to 1.9 cm and anteriorly displaced by approximately 0.4 cm. The femoral head component is mildly rotated. The possible displaced intertrochanteric fracture seen on radiographs from 03/29/2022 was most likely artifactual due to a superimposed skin fold. Metallic surgical anchors are seen at the left greater trochanter with associated metal artifact. The remaining visualized pelvic bones are intact without internal edema or enhancement. Mild degenerative changes are seen in the pubic symphysis. Postsurgical changes in the lower lumbar spine are partially imaged, along with superimposed degenerative changes. No marrow replacing mass is seen. Soft tissues: Soft tissue edema is seen within the muscles surrounding the right hip as well as in the left abductor musculature. There is severe fatty infiltration of the left gluteus medius and minimus muscles and mild fatty infiltration of the right gluteus musculature. Bilateral proximal hamstring tendinosis is seen with superimposed low-grade partial tearing of the right hamstring muscle. Status post hysterectomy. Trace free fluid in the pelvis is nonspecific. No enhancing soft tissue mass. IMPRESSION: 1. Displaced subcapital fracture of the right proximal femur is new or newly displaced when compared to the recent prior exams from 03/29/2022. 2. Intramuscular edema is seen surrounding the right proximal femoral fracture that may be reactive or secondary to muscle strains. Low-grade muscle strains are seen within the left abductor musculature. 3. Postsurgical changes and degenerative changes are partially imaged in the lower lumbar spine. 4. Low-grade partial intrasubstance tearing of the right proximal hamstring tendon at the origin. Bilateral proximal hamstring tendinosis is also seen. 5. Trace free fluid in the pelvis is of uncertain etiology. Dictated by: Bernard Crawford M.D. on 03/31/2022 at 10:35 Approved by: Bernard Crawford M.D. on 03/31/2022 at 10:54
--- NOTE | 2022-03-31 08:45 | PC.NURSE ---
Addendum entered by Emili Gary R.N. 03/31/22 17:12: Patient bladder scanned for 281cc of urine, she is emptying out her bladder better this evening. No campos placed yet, will pass this on in report. Patient given oxycodone for complaints of 7/10 discomfort to r.hip. Addendum entered by Emili Gary R.N. 03/31/22 16:05: Patients bladder scan around 1130 was 300cc, She was over 700. Pure wick is placed and on suction. Patient is voiding in chamber. If she has above 400 or more when bladder scanned again around 1630, will place campos. Patient is sleeping soundly. Original Note: Assess- Patient is alert and oriented x4, she is having pain to her r.groin. She is not bearing any weight on this area, just down for an MRI and patient placed on a gurney and is down there now. She has 2+ lymph edema to her l.leg and r.leg is not swollen. Patient will get her medications when she comes back and pain medication with also be given. Patient is pleasant and makes her needs know.
[2022-03-31] MEDS: ENOXAPARIN 40 MG/0.4 ML SYRINGE SUBCUT (10:22)
[2022-03-31] MEDS: DOCUSATE 100 MG CAPSULE PO ×2 (10:23→21:06)
[2022-03-31] MEDS: LOSARTAN 50 MG TABLET PO ×2 (10:24→21:06)
[2022-03-31] MEDS: carvediloL 12.5 MG TABLET PO (10:24)
[2022-03-31] MEDS: AMLODIPINE 5 MG TABLET PO (10:24)
[2022-03-31] MEDS: dexAMETHasone 4 MG TABLET PO ×2 (10:25→17:46)
--- NOTE | 2022-03-31 11:29 | DIET.CONS ---
Dietary Consultation Note Admission Date: 03/30/2022 23:56 Assessment: 82y F admitted for severe pain found to have displaced subcapital femoral fracture screened by RD for low BMI (17.7) Pt is well known to this RD as we work intermittently together on outpatient basis. Pt with metastatic ovarian cancer (lungs, spleen) x8y treated through [facility]. Pt continues to have difficulty maintaining weight, current BMI 17.7, pts goal is to maintain BMI 18. Pt consumes small frequent meals with some protein restriction due to wavering renal function (currently good functioning, eGFR 59, Cr 0.97). Ht: 175.26 cm Wt: 54.431 kg BMI: 17.7 Last BM: 03/30/22 (03/31/22 00:46) MNA: 9 Chris Score: 19 Diet: 03/31/22 Breakfast General (Regular) Diet Diet Modifications: Nutrition Percent Meal Consumed 25% 03/31/22 08:42 Labs: RBC 3.11 X10^6/uL (4.0-5.2) L 03/30/22 18:38 Hgb 10.3 g/dL (12.0-16.0) L 03/30/22 18:38 Hct 30.0 % (36-46) L 03/30/22 18:38 Creatinine 0.97 mg/dL (0.52-1.04) 03/30/22 18:38 Nutrition Diagnosis: Severe Chronic Protein Calorie Malnutrition r/t chronic metastatic ovarian cancer in already lean post menopausal female aeb BMI 17.7 (severe for age), pt being treated at [facility] x8y, pt with difficulty maintaining BMI 18 despite nutrition assistance from RD, admitted for femoral fracture. Interventions: 1. Recc pt order small, frequent snacks in hospital for meals to allow her to graze throughout day. 2. Recc yogurt, LS cottage cheese to support bone health. 3. Recc starting ONS if pt having difficulty with POs. EER: 1800kcals (35kcal/kg), 55g PRO (1g/kg) Monitoring/Evaluations: following through d/c Electronically Signed by: Neda Nguyễn 03/31/22 11:29 Clinical Dietitian [address] [address]
--- NOTE | 2022-03-31 12:10 | PT-IP ANOTE ---
pt stated that she just had an MRI and has a lot of pain and wants PT later. Obtained PLOF and home set up. will f/u.
[2022-03-31] MEDS: GABAPENTIN 300 MG CAPSULE PO (12:18)
--- NOTE | 2022-03-31 13:17 | CM.DANOTE ---
DCP Assessment: Payor: Medicare PCP: MD Terese Pt is a 82 y.o. F who presented to the ER for evaluation of severe or worsening lower extremity pain. Pt has a history of metastatic ovarian cancer to the lung and spleen and is being managed with chemo at [facility]. Pt was seen and evaluated yesterday for R hip pain in the absence of any fall and the x-ray showed possible nondisplaced right greater trochanter fracture. CT showed no bony abnormality of the abdomen and pelvis. Pt admitted under observation for further management of her pain. DCP met with pt this morning to discuss discharge needs. Pt sitting up in bed. DCP introduced herself and role. Pt states that she lives in a 3 story house with her spouse Estrada. Estrada is left side compromised from previous stroke and pt is sole caregiver. Pt states that they have [employer] Caregivers who provide assistance within the home. Pt states that she has friends and neighbors willing to help out when needed. Pt states that since Wednesday, she has been using a walker. Pt declines any further resources at this time. DCP to continue to follow. Whiteboard updated and instructed to call. P: Once pt is medically stable for discharge, pt to discharge home via [facility]. Christa Skinner RN/ROSELIA Discharge Planning/Care Management Advanced directive, confirm from FAMILY Start: 03/31/22 00:53 Freq: Q24H Status: Active Protocol: Document 03/31/22 01:42 CS (Rec: 03/31/22 01:42 CS [id number]) Advance Directive, confirm on record Time 01:42 Person contacted pt Copy received No CM Discharge Assessment Start: 03/31/22 13:06 Freq: Status: Active Protocol: Document 03/31/22 13:06 AJ (Rec: 03/31/22 13:07 AJ [id number]) Discharge Planning Assessment Assigned Photovoltaic Technician Christa Skinner RN/MANDAP Advance Directives? Yes Advance Directives on File Yes History Provided By Patient,Medical Record Prior Living Arrangements House Household Members spouse Type of transporation used prior to Relies on Others admit Independent with ADL's Yes Is patient alert and oriented? Yes Caregiver for Another Yes: Spouse DME Already Rented / Owned FWW / Walker Discharge Plan Home Transportation Arrangement Friend Vida Osorio Referrals Initiated None needed Additional Comment At this time. Whiteboard Updated in Patient Room with Yes name and ext. # of Photovoltaic Technician Comment Instructed to call Review Status In Process Please Provide Date Initial DC 03/31/22 Assessment Was Performed Next Review Type Continued Stay Review
--- NOTE | 2022-03-31 13:41 | PT-IP ANOTE ---
Recent EMR showed R hip fracture and per patricia Quinonez at this time. Awaiting ortho consult. Will d/c PT eval order for now.
[2022-03-31] MEDS: carvediloL 12.5 MG TABLET 6.25 MG PO (17:46)
--- NOTE | 2022-03-31 18:19 | P.CONS_ITS ---
History of Present Illness Consult details Date Patient Seen: 03/31/22 Time Patient Seen: 18:19 Chief complaint: Increased right hip pain Reason for consult: Right femoral neck fracture Requesting provider: Chuy Gudino Narrative: The patient is an 82-year-old woman undergoing treatment for metastatic cancer with Dr. Kristy Ortega at [facility]. She has had a couple of months of significant right hip pain which has worsened considerably over the last several weeks. She had an x-ray performed at [facility] on February 14, 2022 which was read as negative. On Wednesday she found it hard to walk. On Wednesday she borrowed her 's walker and on Wednesday, March 29, 2022 she was seen in the emergency room and evaluated with a CT scan, ultrasound and x-ray of the right hip, these were read as negative. She was discharged home but returned on Wednesday, March 30, 2022 due to continued pain with ambulation. An MRI of the lumbar spine with and without contrast was obtained. This showed a prior spinal fusion but no fractures. She was readmitted to the hospital due to failure to walk. An MRI of the pelvis was obtained on March 31, 2022 and this revealed a displaced femoral neck fracture. Orthopedic consultation has been obtained for definitive management of the fracture. Meds Home Medications and Allergies Home Medications Medication Instructions Recorded Confirmed Type telmisartan 40 mg tablet 40 mg PO BID 10/09/20 03/31/22 History carvedilol 12.5 mg tablet 12.5 mg PO QAM 04/21/21 03/31/22 History felodipine 5 mg tablet,extended 5 mg PO BID 04/21/21 03/31/22 History release 24 hr hydrochlorothiazide 12.5 mg capsule 12.5 mg PO DAILY 04/21/21 06/23/21 History carvedilol 12.5 mg tablet 6.25 mg PO QPM 05/14/21 03/31/22 History acetaminophen 325 mg capsule 650 mg PO QID PRN pain #60 caps 05/22/21 03/31/22 Rx (Tylenol) docusate sodium 100 mg capsule 100 mg PO BID #30 caps 05/22/21 03/31/22 Rx (Colace) sulfamethoxazole 800 1 tab PO Q12H #10 tabs 05/22/21 03/31/22 Rx mg-trimethoprim 160 mg tablet (Bactrim DS) prochlorperazine maleate 10 mg 10 mg PO Q6H PRN Nausea 05/26/21 03/31/22 History tablet (Compazine) mupirocin 2 % topical ointment 1 applic topical BID #60 grams 12/17/21 03/31/22 Rx hydrocodone 5 mg-acetaminophen 325 1 tab PO Q6H PRN pain #10 tabs 03/29/22 03/31/22 Rx mg tablet Allergies Allergy/AdvReac Type Severity Reaction Status Date / Time latex [LATEX] Allergy Intermediate RASH Verified 06/23/21 15:07 amoxicillin Allergy Mild ITCHING/CALIN Verified 03/31/22 14:13 H azithromycin [AZITHROMYCIN] Allergy Mild HIVES Verified 06/23/21 15:07 Penicillins [PENICILLINS] Allergy Mild RASH/ITCHIN Verified 03/31/22 14:13 G hydralazine AdvReac Severe hives Verified 06/23/21 15:07 minoxidil AdvReac Intermediate severe leg Verified 06/23/21 15:07 edema and symptomatic hypotension spironolactone AdvReac Intermediate hyperkalemi Verified 06/23/21 15:07 a HENRY Inhibitors AdvReac Mild COUGH Verified 06/23/21 15:07 [HENRY INHIBITORS] Review of Systems Review of Systems Narrative: Review of systems is notable for the effects of her chemotherapy. Exam Vital Signs (past 8 hours): Oxygen Delivery Method Room Air Oxygen Flow Rate 0 Narrative Exam Narrative: On physical examination, the patient is comfortably resting in her hospital bed. Her right leg is shortened and externally rotated. The skin overlying the intended incision is intact. Light touch is intact in the superficial and deep peroneal nerve distribution as well as the tibial nerve distribution. She can dorsiflex and plantar flex her toes on command. She has a 2+ dorsalis pedis pulse. Objective Labs Result Diagrams: 03/30/22 18:38 03/30/22 18:38 Labs: Laboratory Results - last 24 hr 03/30/22 03/30/22 03/30/22 18:38 18:38 18:38 WBC 8.8 RBC 3.11 L Hgb 10.3 L Hct 30.0 L MCV 96.5 MCH 33.2 MCHC 34.4 RDW 15.2 H Plt Count 191 Neut % (Auto) 86.2 H Lymph % (Auto) 8.1 L [place] % (Auto) 4.3 Eos % (Auto) 0.3 L Baso % (Auto) 1.1 Neut # (Auto) 7600 H Lymph # (Auto) 700 L [place] # (Auto) 400 Eos # (Auto) 0 Baso # (Auto) 100 ESR 35 H Sodium 132 L Potassium 4.8 Chloride 101 Carbon Dioxide 22 BUN 28 H Creatinine 0.97 Estimated GFR 59 L BUN/Creatinine Ratio 28.9 H Glucose 113 H Calcium 8.6 Magnesium 1.9 Total Bilirubin 0.4 AST 39 H ALT 16 Alkaline Phosphatase 98 C-Reactive Protein 2.7 H Total Protein 7.2 Albumin 4.2 Globulin 3.0 Albumin/Globulin Ratio 1.4 Urine Color Urine Appearance Urine pH Ur Specific [place] Urine Protein Urine Glucose (UA) Urine Ketones Urine Occult Blood Urine Nitrate Urine Bilirubin Urine Urobilinogen Ur Leukocyte Esterase Urine RBC Urine WBC Ur Squamous Epith Cells Urine Bacteria Hyaline Casts Ur Culture Indicated? SARS-CoV-2 (PCR) Negative 03/31/22 00:00 WBC RBC Hgb Hct MCV MCH MCHC RDW Plt Count Neut % (Auto) Lymph % (Auto) [place] % (Auto) Eos % (Auto) Baso % (Auto) Neut # (Auto) Lymph # (Auto) [place] # (Auto) Eos # (Auto) Baso # (Auto) ESR Sodium Potassium Chloride Carbon Dioxide BUN Creatinine Estimated GFR BUN/Creatinine Ratio Glucose Calcium Magnesium Total Bilirubin AST ALT Alkaline Phosphatase C-Reactive Protein Total Protein Albumin Globulin Albumin/Globulin Ratio Urine Color Yellow Urine Appearance Clear Urine pH 5.0 Ur Specific [place] 1.015 Urine Protein 2+ H Urine Glucose (UA) Negative Urine Ketones Trace H Urine Occult Blood 2+ H Urine Nitrate Negative Urine Bilirubin Negative Urine Urobilinogen 0.2 Ur Leukocyte Esterase Negative Urine RBC 0-1/hpf Urine WBC None seen Ur Squamous Epith Cells 0-1 /hpf Urine Bacteria Occasional (0-1) Hyaline Casts 0-1/lpf Ur Culture Indicated? Cult not indicated SARS-CoV-2 (PCR) Radiographic studies: Plain film of the pelvis with right hip February 14, 2022 is reviewed and indepen dently interpreted. This shows no significant findings of right hip fracture. Plain film of the pelvis with right hip on March 29, 2022 is reviewed and independently interpreted. This shows a line of compression underlying the femoral head in the area of the eventual fracture which in retrospect probably represents an impacted fracture of the femoral neck. This is also evident in retrospect on the CT of the abdomen and pelvis obtained on March 29, 2022. The MRI scan of the lumbar spine from March 30, 2022 is reviewed and independently interpreted. This shows a prior fusion with hardware in the lumbar spine. No evidence of compression fracture. The MRI scan of the pelvis from March 31, 2022 was reviewed and independently interpreted today. This shows a displaced femoral neck fracture on the right. There does not appear to be a metastatic lesion at the site of the fracture. [facility] Medical History Arthritis Essential hypertension Fallopian tube carcinoma Pulmonary nodule Scoliosis Surgical History History of lung biopsy (2016) History of partial pancreatectomy S/P total abdominal hysterectomy and bilateral salpingo-oophorectomy (~2013) Status post exploratory laparotomy Status post splenectomy (2015) Social History household members: spouse Tobacco & Substance Use Smoking Status: Former smoker alcohol intake: former Assessment & Plan Assessment & Plan narrative: She has a pathologic fracture of the femoral neck. This is pathologic in the sense that it occurred as a stress fracture from low bone density, not due to it being through a metastatic lesion. She is being treated for fallopian tube cancer with chemotherapy. This will affect her fracture healing. Appropriate treatment for this condition would be a hemiarthroplasty of the right hip even in normal circumstances, a cemented hemiarthroplasty of the hip does not require healing of a fracture as fixation is maximal with the cement immediately. I suspect she has an increased risk of infection however delaying surgery until the effects of her chemotherapy have completely resolved would put her at risk of extended bed rest. Although the fracture does not appear to be related to her metastatic cancer, we will send the femoral head to pathology to rule out tumor involvement. I have discussed the risks benefits and alternatives to right hip hemiarthroplasty with the patient. Risks discussed included but were not limited to: Failure to relieve pain, dislocation, leg length discrepancy, blood loss requiring transfusion, deep venous thrombosis, pulmonary embolism, wound healing difficulties, infection, nerve damage, stroke, myocardial infarction, permanent paralysis and . Surgery will be performed tomorrow at the conclusion of my elective operating day. We will keep her NPO after midn ight as if there is a cancellation during the day we will do her surgery earlier. COVID-19 COVID-19 status: Negative Result date/Date tested (Pos, Neg/Pending): 03/30/22 Time Spent With Patient Time with patient: 30 to 49 minutes with 50% spent counseling/coordinating care Critical Care time: I spent a total of [] minutes of critical care time on this patient's care today; this time is exclusive of procedural time.
[2022-03-31 19:00] VITALS: BP 143/58; PULSE 72; RESP 18; TEMP 36.9; O2SAT 92; O2SAT 95
[2022-03-31 21:06] VITALS: BP 143/58; PULSE 72
[2022-04-01] VITALS (21 sets, daily range): BP systolic 130–190; BP diastolic 62–94; PULSE 53–78; RESP 9–20; TEMP 36–37.5; O2SAT 93–99; BMI 17.4
--- NOTE | 2022-04-01 | PATH_ITS ---
[facility] [place] Accession Number: [id number] No. of containers..01 Tissue . 01 Material submitted: . hip - RIGHT FEMORAL HEAD . 01 Clinical history: . TO RULE OUT METASTASIS FROM FALLOPIAN TUBE CANCER . 01 Diagnosis: Right Femoral Head, Resection: Focal mild degenerative changes, osteopenia, and apparent hemorrhagic fracture site at base/neck. Negative for malignancy. [facility] 04/09/2022 0958 Local . 01 Electronically signed: . Zayra Mcmanus MD, Pathologist NPI- [id number] . 01 Gross description: . Received in formalin in a specimen container, labeled with the patient's name and medical record number, right femoral head, rule out metastasis from fallopian tube cancer, is a femoral head with notch at resection margin that measures 4.5 x 4.5 x 3.2 cm in height. The notched hemorrhagic resection margin is entirely inked blue. There is an old screw site within the resection margin that measures 0.5 x 1.0 cm. The articular surface is focally wrinkled and irregular. No distinct eburnated areas or osteophytes are grossly identified. The specimen is serially sectioned to reveal dense bone parenchyma. No distinct lesions are grossly identified. Also in the same container is a possible femoral neck with smooth resection margin and no acute surface identified that measures 3.3 x 3.0 x 1.8 cm. The specimen is entirely inked in blue and serially sectioned to reveal unremarkable dense calcified bone parenchyma cut surfaces. No distinct lesions are grossly identified. Actuarial Mathematician sections are submitted in cassettes A1-A3 as follows: . A1: Resection margin on femoral head. A2: Slightly irregular surface of femoral head. A3: Possible femoral neck career services representative. . The specimen is submitted following decalcification. ([id number]) /MRV 04/03/2022 1059 Local . 01 Pathologist provided ICD-10: M84.9 . 01 CPT . 811545, 732439, 854508, 212949 Specimen Comment: A courtesy copy of this report has been sent to [phone] Performed at: 01 [facility] [address] [place] [address], [place], [place] [id number] MD Piotr Palmer MD Phone: [phone]
--- NOTE | 2022-04-01 | DI.RAD.S_ITS ---
PROCEDURE: XR PELVIS 1-2V INDICATIONS: Right proximal femur fracture. TECHNIQUE: Single AP view(s) of the pelvis acquired. COMPARISON: [facility], MR, MR PELVIS WO/W CON, 03/31/2022, 8:45. [facility], CR, XR HIP W PEL IF DONE RT 2V, 03/29/2022, 11:52. FINDINGS: Status post right total hip arthroplasty. No periprosthetic fracture. Relatively large amount of subcutaneous and intra-articular air noted. IMPRESSION: Interval right total hip arthroplasty with no acute complicating hardware feature identified. Dictated by: Binu Ordonez M.D. on 04/01/2022 at 20:27 Approved by: Binu Ordonez M.D. on 04/01/2022 at 20:30
[2022-04-01] MEDS: GABAPENTIN 300 MG CAPSULE PO ×2 (00:14→11:08)
[2022-04-01] MEDS: dexAMETHasone 4 MG TABLET PO ×2 (02:24→09:34)
[2022-04-01 06:14] LABS: Add Manual Diff / Slide Review NO; Basophils Absolute Auto 0 /uL (0-100); Basophils Percent Auto 0.2 % (0-2); Eosinophils Absolute Auto 0 /uL (0-450); Hematocrit 28.8 % (36-46); Hemoglobin 9.7 g/dL (12.0-16.0); Lymphocytes Absolute Auto 400 /uL (1100-4500); Lymphocytes Percent Auto 6.5 % (25-40); Mean Corpuscular HGB Conc 33.5 % (30-36); Mean Corpuscular Hemoglobin 32.6 PG (26-34); Mean Corpuscular Volume 97.2 fL (80-100); Monocytes Absolute Auto 200 /uL (0-900); Monocytes Percent Auto 2.6 % (3-14); Neutrophils Absolute Auto 6200 /uL (1500-7000); Neutrophils Percent Auto 90.7 % (50-75); Platelet Count 193 X10^3/uL (150-400); Red Blood Cell Count 2.97 X10^6/uL (4.0-5.2); Red Cell Distribution Width 15.2 % (11.6-14.8); White Blood Cell Count 6.9 X10^3/uL (4.5-11.0)
[2022-04-01 06:24] LABS: BUN Creatinine Ratio 34.7 (6-22); Blood Urea Nitrogen 35 mg/dL (7-17); Calcium 7.9 mg/dL (8.4-10.2); Carbon Dioxide 19 mmol/L (22-32); Chloride 104 mmol/L (98-107); Estimated Glomerular Filt Rate 56 mL/min (>60); Glucose 146 mg/dL (80-110); HEMOLYSIS < 15 (0-50); Potassium 4.9 mmol/L (3.4-5.1); Sodium 131 mmol/L (137-145)
--- NOTE | 2022-04-01 09:16 | PM.PN.1 ---
Subjective Subjective Date Patient Seen: 04/01/22 Time Patient Seen: 09:16 Interval history: Patient with an uneventful evening. Was seen by Dr. Cox from Orthopedic surgery who explained what is required to help fix her hip to get her back on her feet literally and she of course is fully on board with that her words to me this morning are basically 'let us get on with it'. Patient reports her pain is well controlled no issues there Exam Vital Signs (past 8 hours): Oxygen Delivery Method Room Air Oxygen Flow Rate 0 Objective Labs Result Diagrams: 04/01/22 06:02 04/01/22 06:02 Labs: Laboratory Results - last 24 hr 04/01/22 04/01/22 06:02 06:02 WBC 6.9 RBC 2.97 L Hgb 9.7 L Hct 28.8 L MCV 97.2 MCH 32.6 MCHC 33.5 RDW 15.2 H Plt Count 193 Neut % (Auto) 90.7 H Lymph % (Auto) 6.5 L [place] % (Auto) 2.6 L Eos % (Auto) 0.0 L Baso % (Auto) 0.2 Neut # (Auto) 6200 Lymph # (Auto) 400 L [place] # (Auto) 200 Eos # (Auto) 0 Baso # (Auto) 0 Sodium 131 L Potassium 4.9 Chloride 104 Carbon Dioxide 19 L BUN 35 H Creatinine 1.01 Estimated GFR 56 L BUN/Creatinine Ratio 34.7 H Glucose 146 H Calcium 7.9 L PFSH Medical History Arthritis Essential hypertension Fallopian tube carcinoma Pulmonary nodule Scoliosis Surgical History History of lung biopsy (2016) History of partial pancreatectomy S/P total abdominal hysterectomy and bilateral salpingo-oophorectomy (~2013) Status post exploratory laparotomy Status post splenectomy (2015) Social History household members: spouse Smoking Status: Former smoker alcohol intake: former Assessment & Plan Assessment & Plan narrative: 1. Right hip fracture-for surgical repair later today as per Orthopedic surgery 2. Fallopian tube malignancy-patient was due for additional treatment today as part of her ongoing cycle. Obviously this will have to be interrupted for surgery and long enough to allow for healing to occur. I have left a message for her oncologist in [place] but have yet to hear back from her as yet. 3. Severe chronic protein calorie malnutrition-patient of course significantly malnourished in part due to her malignancy or chemotherapy on overall debilitated state. She struggles to keep her BMI over 18. This increased pain from her hip etcetera as well as the ongoing active treatment for her metastatic cancer has not been helpful. Will continue to offer small frequent snacks and continue monitoring by dietary staff. The malnutrition will probably slow her healing addition to of course the chemotherapy etcetera. 4. Hypertension-patient's blood pressure better controlled with better pain control obviously. Continue her usual medications. Note: Greater than 20 minutes total time was spent on day of service, evaluating the patient on the floor, including examining the patient, discussing clinical course with clinical and nursing staff, reviewing clinical course in the computer, preparing documentation and writing orders for continued management of care, discussing status with family as appropriate, reviewing plans for the next 24 hours with both patient/family and nursing staff as appropriate. Quality VTE Deep Vein Thrombosis/Pulmonary Embolism Present on Admission: No
[2022-04-01] MEDS: carvediloL 12.5 MG TABLET PO (09:34)
[2022-04-01] MEDS: AMLODIPINE 5 MG TABLET PO (09:34)
[2022-04-01] MEDS: LOSARTAN 50 MG TABLET PO ×2 (09:34→23:58)
[2022-04-01] MEDS: DOCUSATE 100 MG CAPSULE PO ×2 (09:34→23:58)
[2022-04-01] MEDS: OXYCODONE IR 5 MG TABLET PO (11:08)
[2022-04-01] MEDS: HYDROMORPHONE 0.5 MG INJ 1 MG IV (12:40)
--- NOTE | 2022-04-01 13:58 | CM.DPC ---
DCP Cont: Per Ortho Consult, recommending surgical intervention for pt's hip pain. Per MD, pt agreeable and goal is to get back to being ambulatory to be home with her . Per rn community, surgery scheduled for later today around 1615. Pt changed from OBS to Inpt Status as of 03/31/22 and therefore SW to follow closely post surgery and PT/OT eval towards determining SNF vs home with assist and PP CGs already in place. Plan: SW to follow closely after surgery late this afternoon towards determining d/c planning needs as high likelihood she may need SNF rehab. Juli Hudson MSW
[2022-04-01] MEDS: carvediloL 12.5 MG TABLET 6.25 MG PO (17:18)
--- NOTE | 2022-04-01 17:30 | PC.NURSE ---
Day shift: Pt off unit at approx 1720 for left hip surgery.
[2022-04-01] MEDS: LACTATED RINGERS 1,000 ML 42 ML IV (17:58)
--- NOTE | 2022-04-01 18:22 | PM.PREOP ---
Pre-operative Note COVID-19 COVID-19 status: Negative Result date/Date tested (Pos, Neg/Pending): 03/30/22 Interval Note History & Physical reviewed/Exam performed by Physician: Yes Changes to H&P: No
[2022-04-01] MEDS: CEFAZOLIN 2 GM/20 ML SYRINGE IV (18:58)
[2022-04-01] MEDS: TRANEXAMIC ACID 1,000 MG VIAL 2000 MG INJ ×2 (19:03→20:10)
--- NOTE | 2022-04-01 19:33 | SUR.OPER ---
Lateral on padded OR bed. Gel axillary roll. Arms secured on padded armboard with pillow supporting top arm. Padded hip positioner braces x4 - anterior and posterior chest and pelvis. Additional gel pad used anterior pelvis. Gel pad under bottom leg from knee to foot and secured with tape over sheet. Patient voided via Purewick device in pre-op area prior to entering OR. Brief also in place.
[2022-04-01] MEDS: BUPIVACAINE 0.5% W/ EPI (PF) 30 ML VIAL INJ (19:44)
[2022-04-01] MEDS: EPINEPHrine 1 MG/ML 0.15 MG INJ (19:47)
--- NOTE | 2022-04-01 20:20 | P.OP_ITS ---
Operative Date/Time/Diagnoses Date of procedure: 04/01/22 Time of procedure: 20:20 Pre-op diagnosis: Right hip femoral neck fracture Post-op diagnosis: same Procedure & Clinicians Procedure: Right hip hemiarthroplasty Same procedure as scheduled: Yes Indications: The patient is an 82-year-old woman who likely had a stress fracture of her fem oral neck on the right which eventually completed and became a displaced femoral neck fracture. She is agreed to hemiarthroplasty after discussion the risks benefits and alternatives. Risks discussed included but were not limited to: Failure to improve, infection, leg length discrepancy, dislocation, deep venous thrombosis, pulmonary embolism, nerve damage, stroke, myocardial infarction, permanent paralysis and . Surgeon: Minor Cox [employer] Communications Sergeant: Caron Grayson Walker Click Yes if Unassisted: No Anesthesia Type: General and Local Operative Notes Findings: Displaced femoral neck fracture on the right Closure Type: primary Specimen(s): other (Femoral head and neck sent to pathology to rule out pathologic fracture from metastatic cancer.) Prosthetic devices, grafts, tissues, transplants, or devices: Implants used in this procedure were manufactured by the [employer] and [employer] and included a 47 mm tandem unipolar head with a size 10 synergy cemented stem with a 10 mm distal centralizer and a +0 taper sleeve. In addition a distal cement bone plug was placed. Applied: implant(s) Estimated Blood Loss (mL): 150 Blood products transfused: none Procedure in detail: The patient was seen in the pre-operative area, where they identified the right hip as the operative site and this was marked with my initials. The patient received pre-operative antibiotics and was taken to the operating room and placed on the operative table in the left lateral decubitus position after satisfactory anesthesia. A night time nanny out was performed. The right leg was prepared from the ankle to the iliac crest with ChloroPrep in the usual fashion and draped through sterile drapes. The hip was approached through an approximately 15 cm incision centered over the greater trochanter and curving gently posteriorly as it went proximally. This was carried sharply to the fascia bert, which was divided and retracted with a self-retaining retractor. The trochanteric bursa was excised with care being taken to avoid the sciatic nerve, which was identified and protected throughout the case. The short external rotators were incised and the capsulomuscular flap was raised and tagged for later repair. The femoral head was removed with a ?corkscrew?, and the femoral neck osteotomy performed approximately 15 mm above the lesser trochanter. Retractors were placed to expose the acetabulum and a trial femoral head placed to confirm the size of the ball. We then turned our attention to the femur. The canal was opened with a box cutting osteotome, followed by a T handled reamer and a lateralizing reamer. The broaches were used, sequentially enlarging until a good fit was obtained. A trial head and neck were then placed and the hip relocated and checked for leg length and stability. The patient was stable in the position of sleep, of squatting, and could be put through a range of motion with 45 degrees internal rotation without dislocation. At 90 degrees flexion, internal rotation to 70? was possible before dislocation. This was felt to be satisfactory and the appropriate components were opened, and the trials were removed. The canal was prepared by placing a distal cement plug. The pulsatile lavage wa s used followed by an epinephrine-soaked sponge for hemostasis. Cement was then retrograde injected and pressurized. The final stem was then impacted into the prepared femoral canal. Finally the femoral head was impacted onto the stem. The acetabulum was cleared of all material and the hip relocated one final time. Radiographs were obtained intra-operatively confirming the position of all components and confirming that there were no iatrogenic fractures. The capsulomuscular flap was then repaired to the greater trochanter though an awl hole using the tag sutures. The short external rotators were repaired with a running 0 Vicryl. The fascia bert was closed with running and interrupted 0 Vicryl. The subcutaneous layer was closed with interrupted 3-0 Vicryl, and the skin with a running 3-0 V-Lock suture and Dermabond. An Aquacel Ag dressing was applied and the patient was taken to recovery having tolerated the procedure well. A skilled budget assistant was required for this procedure both for positioning the leg and assisting with exposure. The procedure would have taken considerably longer had Walker not been available. Complications: none Post-operative Condition: stable Disposition: PACU Plan for aftercare: She will be maintained on posterior hip precautions. She will be allowed to weight bear as tolerated. She will be discharged either to home or to a nursing home facility depending on her progress with physical therapy.
[2022-04-01] MEDS: HYDROMORPHONE 2 MG INJ IV ×3 (21:20→21:42)
--- NOTE | 2022-04-01 21:26 | SUR.PHASEI ---
Patient was attempting to reposition herself in the bed, caused dressing to roll up. Dressing changed by Juanita Montana RN. New brief applied, pure-wick in place for urination. Working to position patient for comfort. Medicated for pain 03/15.
--- NOTE | 2022-04-01 21:45 | SUR.PHASEI ---
continues to decline PO Rx, very pleasant and appreciative. Communicates well regarding pain management based on her experience and knowledge.
--- NOTE | 2022-04-01 22:03 | SUR.PHASEI ---
discussed pain level with patient; currently 6/10 and feels this is acceptable and that we can prepare for transfer to her room. States anything is better than the pain she was having pre-op. Resting comfortably with eyes closed, arouses easily to voice.
--- NOTE | 2022-04-01 22:12 | SUR.PHASEI ---
waiting for AC RN to return call for report. Patient comfortable, pleasant, declines oral intake I think I'll wait till I get to the floor.
--- NOTE | 2022-04-01 22:13 | SUR.PHASEI ---
Occasional desat to 91% when dozing but immediately rises to 96-97%
--- NOTE | 2022-04-01 22:40 | SUR.PHASEI ---
2228 patient to room, bed down and locked, call light within reach. SCDs on. Patient awake and talking, appreciative of care. No questions from patient or staff. Pain 3/10 when last asked.
[2022-04-01] MEDS: LACTATED RINGERS 1,000 ML 125 ML IV (23:58)
[2022-04-02] VITALS (9 sets, daily range): BP systolic 113–172; BP diastolic 63–76; PULSE 58–71; RESP 16–20; TEMP 36–36.6; O2SAT 93–99
[2022-04-02] MEDS: ACETAMINOPHEN 325 MG TABLET 650 MG PO ×3 (05:39→18:57)
--- NOTE | 2022-04-02 06:44 | PM.PN.1 ---
Subjective Subjective Date Patient Seen: 04/02/22 Time Patient Seen: 06:44 Interval history: Patient underwent successful surgery yesterday with a hemiarthroplasty to repair the fracture. Overnight vital signs have been stable no evidence of active complications I also spoke with her oncologist yesterday afternoon. 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 The Avastin will clearly delay healing and certainly will not likely be able to be restarted until least [address] The Abraxane that she was due for yesterday should have less of an impact on her recovery and is less likely to produce any complications. 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 Exam Vital Signs (past 8 hours): - 04/01/22 23:00 04/01/22 23:30 04/01/22 23:58 Temperature 97.3 F L 97.3 F L Pulse Rate 65 60 74 Respiratory Rate 20 17 Blood Pressure 140/67 131/64 167/85 H Pulse Oximetry 94 93 Oxygen Delivery Method Oxygen Flow Rate 0 0 04/01/22 23:00 04/02/22 00:30 04/02/22 01:30 Temperature 97.1 F L 96.8 F L Pulse Rate 69 68 Respiratory Rate 18 18 Blood Pressure 138/63 130/65 Pulse Oximetry 97 95 94 Oxygen Delivery Method Room Air Oxygen Flow Rate 0 0 0 04/02/22 05:30 Temperature 97.5 F L Pulse Rate 71 Respiratory Rate 20 Blood Pressure 113/64 Pulse Oximetry 93 Oxygen Delivery Method Oxygen Flow Rate 0 Oxygen Delivery Method Room Air Oxygen Flow Rate 0 Objective Labs Result Diagrams: 04/02/22 06:12 04/01/22 06:02 [facility] Medical History Arthritis Essential hypertension 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 Postop day 1 Status post right hemiarthroplasty-continue rehab and recovery as per Orthopedic surgery 2. Hypertension-patient's numbers are actually quite good during this ?honeymoon period? postop. I expect they will go back up through the course of the day and certainly should continue patient's usual medications 3. Fallopian tube carcinoma-treatment on hold. Will resume when medically appropriate presumably at least 6-[address] 4. Disposition-patient intends to go home with assistance at home. 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 Will see how she does in the first day or 2 here postop. Note: Greater than 20 minutes total time was spent on day of service, evaluating the patient on the floor, including examining the patient, discussing clinical course with clinical and nursing staff, reviewing clinical course in the computer, preparing documentation and writing orders for continued management of care, discussing status with family as appropriate, reviewing plans for the next 24 hours with both patient/family and nursing staff as appropriate. Quality VTE Deep Vein Thrombosis/Pulmonary Embolism Present on Admission: No
[2022-04-02 06:49] LABS: Hemoglobin 9.6 g/dL (12.0-16.0)
--- NOTE | 2022-04-02 08:03 | PM.PNPO.1 ---
Subjective Subjective Date Patient Seen: 04/02/22 Time Patient Seen: 08:03 Interval history: Patient was comfortable or early this morning but is having a little bit more pain currently. Denies fever or chills. No nausea vomiting. Exam Vital Signs (past 8 hours): - 04/02/22 00:30 04/02/22 01:30 04/02/22 05:30 Temperature 97.1 F L 96.8 F L 97.5 F L Pulse Rate 69 68 71 Respiratory Rate 18 18 20 Blood Pressure 138/63 130/65 113/64 Pulse Oximetry 95 94 93 Oxygen Flow Rate 0 0 0 Oxygen Delivery Method Room Air Oxygen Flow Rate 0 Narrative Exam Narrative: 82-year-old female resting comfortably in bed in no apparent distress. Dressing is Clean, dry, intact.. Motor functions intact distal right lower extremity. 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 Pulmonary nodule Scoliosis Surgical History History of lung biopsy (2016) History of partial pancreatectomy S/P total abdominal hysterectomy and bilateral salpingo-oophorectomy (~2013) Status post exploratory laparotomy Status post splenectomy (2015) Social History household members: spouse Smoking Status: Former smoker alcohol intake: former Assessment & Plan Post-op Postoperative Procedures: Procedures Operation Date: 04/01/22 16:15 Actual Procedure Side Surgeon p Hip Hemiarthroplasty Right Minor Cox MD Postoperative day: 1 Postoperative status: doing well Postoperative status narrative: Stable status post right hip hemiarthroplasty Postoperative plan: routine post-op care Postoperative plan narrative: Mobilize with physical therapy, posterior hip precautions, weight-bearing as tolerated Multimodal pain management Disposition to be determined dependent on progress with physical therapy. Quality VTE Deep Vein Thrombosis/Pulmonary Embolism Present on Admission: No
[2022-04-02] MEDS: DOCUSATE 100 MG CAPSULE PO ×3 (08:04→20:57)
[2022-04-02] MEDS: CELECOXIB 200 MG CAPSULE PO (08:07)
[2022-04-02] MEDS: HYDROMORPHONE 2 MG TABLET PO ×2 (08:07→11:30)
[2022-04-02] MEDS: carvediloL 12.5 MG TABLET PO (08:07)
[2022-04-02] MEDS: LOSARTAN 50 MG TABLET PO ×2 (08:07→20:58)
[2022-04-02] MEDS: AMLODIPINE 5 MG TABLET PO (08:07)
[2022-04-02] MEDS: ENOXAPARIN 40 MG/0.4 ML SYRINGE SUBCUT (08:10)
--- NOTE | 2022-04-02 08:38 | PC.NURSE ---
Addendum entered by Emili Gary R.N. 04/02/22 13:39: Patient medicated with po dilaudid and tylenol after getting up with physical therapy, she is sitting up in the chair and comfortable. Original Note: Assess- Patient is alert and oriented and states that she is having a lot of pain to her r.hip. Given po dilaudid and helpful. IVF stopped as patient is drinking plenty of fluids. Dressing to hip cdi, aquacel. Resting comfortably.
--- NOTE | 2022-04-02 10:25 | PT.IIE ---
Current Diagnoses Pathological fracture in neoplastic disease, right femur, initial encounter for fracture (03/31/22) Surgery Performed Operation Date: 04/01/22 16:15 Actual Procedures p Hip Hemiarthroplasty(Right) - Minor Cox MD Surgical History (Last Updated 04/02/22 @ 08:22 by Chuy Gudino MD) History of lung biopsy (2016) History of partial pancreatectomy S/P total abdominal hysterectomy and bilateral salpingo-oophorectomy (~2013) Status post exploratory laparotomy Status post hip hemiarthroplasty (04/01/22) Status post splenectomy (2015) Medical History (Last Reviewed 04/02/22 @ 08:04 by Rivera Hirsch PA-C) Arthritis Essential hypertension 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 Pulmonary nodule Scoliosis Physical Therapy Inpatient Evaluation/Re-Eval M1 PT/OT-IP Prior Functional Status Start: 03/31/22 12:10 Freq: NEEDED Status: Active Protocol: Document 04/02/22 10:25 AB (Rec: 04/02/22 13:20 AB [email or web address]) Medical Review Prior Functional Status Medical History Reviewed Yes Communication able to make needs known Mobility and Gait pt stated that she is modified independent with all mobilities and ambulation without AD; tends to furniture cruise when at home and stated that she is very careful when she walks outside without AD; uses shopping cart for support when going to the grocery Social History Household Members spouse Living Arrangements House Number of Floors (Floors) 3 or More Floors Number of Stairs To Enter/Railing? pt will stay on the main level of the house 3 steps with B rails to enter the house Home Environment High Toilet,Walk in Shower Home Equipment Front Wheel Walker,Four Wheel Walker,Shower Seat with Backrest,Grab Bars Near Toilet ,Grab Bars In Shower Additional Social History Comment pt stated that her spouse had a CVA and will not be able to assist her; pt has arranged for 29/03 assist/caregiver at home M2 PT-IP Current Condition Start: 03/31/22 12:10 Freq: NEEDED Status: Active Protocol: Document 04/02/22 10:25 AB (Rec: 04/02/22 13:20 AB [email or web address]) Physical Therapy Current Condition Current Condition Evaluation Date 04/02/22 Treatment Diagnosis R fem neck fx s/p hemiarthroplasty; CA w/ lung mets; difficulty in walking Onset Date 03/31/22 M3 PT-IP Subjective Start: 03/31/22 12:10 Freq: NEEDED Status: Active Protocol: Document 04/02/22 10:25 AB (Rec: 04/02/22 13:20 AB [email or web address]) Subjective Physical Therapy Visit Type Type Initial Evaluation Visit Start Time 10:25 Visit Stop Time 11:30 Total Visit Minutes 65 Number of ACCOUNTANCY PROFESSOR Visits 0 Physical Therapy Visit Comments Patient Comments agreeable to do PT M4 PT-IP Mobility and Gait Start: 03/31/22 12:10 Freq: NEEDED Status: Active Protocol: Document 04/02/22 10:25 AB (Rec: 04/02/22 13:20 AB [email or web address]) PT-Bed Mobility Assessment Supine to Sit Supine to Sit Minimal Assistance PT-Transfer Assessment Sit to and From Stand Sit to and from Stand Moderate Assistance,1 Person Assistance,Use of Upper Extremities Equipment Transfer Assistive Device Front Wheeled Walker Orthotic/Prosthetic Devices or Brace: No Transfers Transfer Destination Chair Transfer Technique Stand Step Pivot Transfer Ability Level of Assist Moderate Assistance,Maximum Assistance,1 Person Assistance ,Use of Upper Extremities Comments Mobility Comments educated pt on R hip posterior precautions. pt has difficulty recalling precautions and needs cues. completed supine to sit min A and max cues for techniques and for hip precautions. pt with increase guarding. able to sit on eOB SBA. completed sit to stand mod A and max cues. pt needs one step instructions on all tasks. completed step transfer to chair using FWW mod to max a and max cues. unable to ambulate at this time but agreed to stay up on the chair . positioned pt on the chair. call light and table placed within reach. informed pt regardign SNF rehab but pt refused. stated that she cannot be away from her spouse. PT-Balance Assessment Sitting Balance and Reactions Static Sitting Balance Ability Good Dynamic Sitting Balance Ability Good Standing Balance and Reactions Static Standing Balance Ability Fair Dynamic Standing Balance Ability Poor Device Used FWW M5 PT-IP Objective Assessments Start: 03/31/22 12:10 Freq: NEEDED Status: Active Protocol: Document 04/02/22 10:25 AB (Rec: 04/02/22 13:20 AB [id number]) Orientation Orientation/Cognition Level of Alertness Alert Orientation Name,Place,Situation Language Function Ability No Deficits Noted Safety Awareness Decreased Safety Awareness Memory Description Short Term Impaired Gross Range of Motion Lower Extremity ROM Assessment Within Functional Limits Strength Lower Extremity Strength Assessment Right Impaired Hip 3+/5 Knee 4-/5 Coordination Assessment Gross Coordination Gross Coordination WNL Muscle Tone Muscle Tone WNL Yes M6 PT-IP Treatment Start: 03/31/22 12:10 Freq: NEEDED Status: Active Protocol: Document 04/02/22 10:25 AB (Rec: 04/02/22 13:20 AB [id number]) Physical Therapy Treatment Education Education Provided Precautions,Weight Bearing Status,Post-Op Packet,Safety M7 PT-IP Assessment and Plan Start: 03/31/22 12:10 Freq: NEEDED Status: Active Protocol: Document 04/02/22 10:25 AB (Rec: 04/02/22 13:20 AB [id number]) PT Summary Assessment and Plan Potential Rehabilitation Potential Fair Status of Condition at Evaluation Evolving Summary Impairments Pain,ROM,Strength,Balance, Coordination,Sensation,Tone, Cognition,Bed Mobility, Transfers,Gait,Activity Tolerance Assessment Summary pt requiring mod to max A with mobility and unable to ambulate at this time. presents with decrease activity tolerance and requires cues with all tasks. informed pt regarding SNF rehab but pt refused. Pt will need 24/7 assist at this time and services. will conduct caregiver when appropriate. pt has 3 steps to enter the house and need to be able to complete prior to d/c. will continue to assess progress. Goals Bed Mobility Goal Standby Assistance Transfer Goal Independent,Front Wheeled Walker Gait Goal Standby Assistance,Front Wheel Walker Gait Distance 150 Other Goals up/down 3 steps B rails SBA Frequency of Treatment Frequency Of Treatment Twice a Day Treatment Plan Physical Therapy Treatment Plan Bed Mobility Training,Transfer Training,Gait Training, Therapeutic Exercise,Balance Retraining,Post Op Education, Discharge Planning,Hot or Cold Pack,Neuromuscular Re-ed, Coordination Retraining,Manual Therapy Precautions Posterior Hip Precautions No Hip Flexion > 90 degrees,No Hip Internal Rotation,No Hip Adduction Weight Bearing Status Weight Bearing Status Weight Bear as Tolerated Allowed Weight Bearing Amount (enter % RLE WBAT or #) (%) Recommendations To Nursing Amount of Assist Needed 1 Person Assist Discharge Recommendations PT Discharge Recommendations Home with 24/7 Assist Available,Home Health,SNF Rehab,Home vs SNF Transportation Needs at Discharge Private Vehicle,Wheelchair/ Cabulance
--- NOTE | 2022-04-02 14:00 | PT.IPTN ---
Current Diagnoses Pathological fracture in neoplastic disease, right femur, initial encounter for fracture (03/31/22) Surgery Performed Operation Date: 04/01/22 16:15 Actual Procedures p Hip Hemiarthroplasty(Right) - Minor Cox MD Physical Therapy Treatment Note M2 PT-IP Current Condition Start: 03/31/22 12:10 Freq: NEEDED Status: Active Protocol: Document 04/02/22 10:25 AB (Rec: 04/02/22 13:20 AB [email or web address]) Physical Therapy Current Condition Current Condition Evaluation Date 04/02/22 Treatment Diagnosis R fem neck fx s/p hemiarthroplasty; CA w/ lung mets; difficulty in walking Onset Date 03/31/22 M3 PT-IP Subjective Start: 03/31/22 12:10 Freq: NEEDED Status: Active Protocol: Document 04/02/22 14:00 AB (Rec: 04/02/22 15:14 AB [email or web address]) Subjective Physical Therapy Visit Type Type Treatment Note Visit Start Time 14:00 Visit Stop Time 14:53 Total Visit Minutes 53 Number of MANAGER WELLNESS Visits 0 Physical Therapy Visit Comments Patient Comments agreeable to do PT M4 PT-IP Mobility and Gait Start: 03/31/22 12:10 Freq: NEEDED Status: Active Protocol: Document 04/02/22 14:00 AB (Rec: 04/02/22 15:14 AB [email or web address]) PT-Bed Mobility Assessment Sit to Supine Sit to Supine Moderate Assistance,1 Person Assistance PT-Transfer Assessment Sit to and From Stand Sit to and from Stand Contact Guard Assistance, Minimal Assistance,1 Person Assistance,Use of Upper Extremities Equipment Transfer Assistive Device Gait Belt,Front Wheeled Walker Orthotic/Prosthetic Devices or Brace: No Transfers Transfer Destination Bed Transfer Technique Stand Step Pivot Transfer Ability Level of Assist Contact Guard Assistance,Use of Upper Extremities Comments Mobility Comments reviewed posterior hip precautions. pt continues to require cues to recall. completed sit to stand from the chair CGA to min A and ambulated in room using FWW CGA to min A ~ 35 ft. cues for turns. pt with memory issues and tends to require cues for all tasks. pt sat back on chair. completed sit < >stand x 5 reps CGA to min A with emphasis on techniques and maintaining hip precautions and decreasing cues provided. pt completed step transfer to EOB using FWW CGA. completed sit<>stand from EOB x 5 reps requiring CGA to min A and LOB x 1. pt continues to require max cues but occasionally just requires mod cues. completed sit to supine mod A and max cues. positioned pt on the bed. call light and table placed within reach. set up caregiver training tomorrow at 1pm. Gait Assessment Gait Gait Assistance Required: Contact Guard Assist,Minimum Assistance Distance (Feet) 35 Able to Maintain Weight Bearing Status Yes During Gait Assistive Devices Assistive Device Gait Belt,Front Wheeled Walker Orthotic/Prosthetic Devices or Brace: No Gait Deviations General Gait Pattern Decreased Stride Length, Decreased Feet Clearance,Step- to Gait Factors Limiting Gait Function Factors Limiting Gait Function Decreased Activity Tolerance, Decreased Strength,Difficulty Following Directions,Limited Range of Motion,Pain,Poor Balance,Poor Safety Awareness M5 PT-IP Objective Assessments Start: 03/31/22 12:10 Freq: NEEDED Status: Active Protocol: Document 04/02/22 10:25 AB (Rec: 04/02/22 13:20 AB [email or web address]) Orientation Orientation/Cognition Level of Alertness Alert Orientation Name,Place,Situation Language Function Ability No Deficits Noted Safety Awareness Decreased Safety Awareness Memory Description Short Term Impaired Gross Range of Motion Lower Extremity ROM Assessment Within Functional Limits Strength Lower Extremity Strength Assessment Right Impaired Hip 3+/5 Knee 4-/5 Coordination Assessment Gross Coordination Gross Coordination WNL Muscle Tone Muscle Tone WNL Yes M6 PT-IP Treatment Start: 03/31/22 12:10 Freq: NEEDED Status: Active Protocol: Document 04/02/22 14:00 AB (Rec: 04/02/22 15:14 AB [email or web address]) Physical Therapy Treatment Education Education Provided Precautions,Safety M7 PT-IP Assessment and Plan Start: 03/31/22 12:10 Freq: NEEDED Status: Active Protocol: Document 04/02/22 14:00 AB (Rec: 04/02/22 15:14 AB [email or web address]) PT Summary Assessment and Plan Potential Rehabilitation Potential Fair Summary Impairments Pain,ROM,Strength,Balance, Coordination,Sensation,Tone, Cognition,Bed Mobility, Transfers,Gait,Activity Tolerance Progress Towards Goals Slow Progress due to Medical Issues,Slow Progress due to Activity Tolerance,Slow Progress - Other Assessment Summary pt progressing slowly with mobility and able to ambulate this afternoon using FWW but continues to require step by step cues with all tasks. caregiver training set up tomorrow at 1pm. pt continues to require to go to SNF rehab. will continue to assess progress. Goals Bed Mobility Goal Standby Assistance Transfer Goal Independent,Front Wheeled Walker Gait Goal Standby Assistance,Front Wheel Walker Gait Distance 150 Other Goals up/down 3 steps B rails SBA Frequency of Treatment Frequency Of Treatment Twice a Day Treatment Plan Physical Therapy Treatment Plan Bed Mobility Training,Transfer Training,Gait Training, Therapeutic Exercise,Balance Retraining,Post Op Education, Discharge Planning,Hot or Cold Pack,Neuromuscular Re-ed, Coordination Retraining,Manual Therapy Precautions Posterior Hip Precautions No Hip Flexion > 90 degrees,No Hip Internal Rotation,No Hip Adduction Weight Bearing Status Weight Bearing Status Weight Bear as Tolerated Allowed Weight Bearing Amount (enter % RLE WBAT or #) (%) Recommendations To Nursing Amount of Assist Needed 1 Person Assist Discharge Recommendations PT Discharge Recommendations Home with 29/03 Assist Available,Home Health,SNF Rehab,Home vs SNF Transportation Needs at Discharge Private Vehicle,Wheelchair/ Cabulance
[2022-04-02] MEDS: carvediloL 12.5 MG TABLET 6.25 MG PO (18:57)
[2022-04-03] VITALS (11 sets, daily range): BP systolic 144–186; BP diastolic 65–73; PULSE 57–80; RESP 15–18; TEMP 36.3–37; O2SAT 96–99
[2022-04-03] MEDS: HYDROMORPHONE 2 MG TABLET PO ×2 (02:12→14:57)
--- NOTE | 2022-04-03 07:16 | PM.PN.1 ---
Subjective Subjective Date Patient Seen: 04/03/22 Time Patient Seen: 07:17 Interval history: Patient with fairly uneventful postoperative course yesterday. Up with physical therapy a couple of times with basic transfers. 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 Postop day 2 status post right hemiarthroplasty-continued rehabilitation and management management of wound and recovery as per Orthopedic surgery. Patient plans to return home with significantly increased assistance when ready for discharge 2. Hypertension-patient's numbers are at her baseline. She is not getting her usual medications since those are non formulary but is receiving formulary alternatives here she maybe somewhat better when able to be discharged home on her usual medications. Pain is probably playing a role as well. Pain should also diminish over time 3. Fallopian tube carcinoma-treatment on hold. Will keep Oncology in [place] updated on status but not anticipating any intervention until end may at earliest 4. Disposition-patient plans to go home with increased assistance when medically appropriate. Note: Greater than 20 minutes total time was spent on day of service, evaluating the patient on the floor, including examining the patient, discussing clinical course with clinical and nursing staff, reviewing clinical course in the computer, preparing documentation and writing orders for continued management of care, discussing status with family as appropriate, reviewing plans for the next 24 hours with both patient/family and nursing staff as appropriate. Quality VTE Deep Vein Thrombosis/Pulmonary Embolism Present on Admission: No
--- NOTE | 2022-04-03 08:07 | P.PN_ITS ---
Subjective Subjective Date Patient Seen: 04/03/22 Time Patient Seen: 08:07 Interval history: Patient is complaining of moderate to severe right hip pain this morning. She is also complaining of increased left leg pain and notes she is not been taking her home gabapentin. She has baseline of neuropathy and left lower extremity edema due to prior cancer surgery. Overall she is feeling pretty well and would like to be discharged home when she is safe. Exam Vital Signs (past 8 hours): - 04/03/22 01:00 04/03/22 06:30 Temperature 98.6 F 98.1 F Pulse Rate 69 57 L Respiratory Rate 18 15 Blood Pressure 163/73 H 171/73 H Pulse Oximetry 96 96 Oxygen Flow Rate 0 Oxygen Delivery Method Room Air Oxygen Flow Rate 0 Narrative Exam Narrative: Pleasant but frail 82-year-old female, resting comfortably in bed, no acute distress. Dressing is clean, dry, intact. Bilateral lower extremity: Motor functions are grossly intact, sensation is decreased left compared to right, calves are soft and nontender to palpation. Left lower extremity has 1 to 2+ distal edema. 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 Pulmonary nodule Scoliosis Surgical History History of lung biopsy (2016) History of partial pancreatectomy S/P total abdominal hysterectomy and bilateral salpingo-oophorectomy (~2013) Status post exploratory laparotomy Status post hip hemiarthroplasty (04/01/22) Status post splenectomy (2015) Social History household members: spouse Smoking Status: Former smoker alcohol intake: former Assessment & Plan Post-op Postoperative Procedures: Procedures Operation Date: 04/01/22 16:15 Actual Procedure Side Surgeon p Hip Hemiarthroplasty Right Minor Cox MD Postoperative day: 2 Postoperative status narrative: -stable status post right hip hemiarthroplasty -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 Weightbearing as tolerated with front wheel walker. Maintain posterior hip precautions x6 weeks -patient will need 6 weeks of DVT prophylaxis, currently on Lovenox 40 mg -continue with multimodal pain management -hemoglobin hematocrit ordered today -patient would like to be discharged home once she is deemed safe by the Hospitalist team and cleared by Physical therapy. Quality VTE Deep Vein Thrombosis/Pulmonary Embolism Present on Admission: No
--- NOTE | 2022-04-03 08:43 | CM.DPC ---
Addendum entered by Madonna Whitley R.N. 04/03/22 15:19: Corey, Emergency Medical Technician Basic [facility] outpatient case manager came by to see patient for caregiver training with Ninfa. Corey is working on getting hours for patient, since their current client is her spouse, Sebas. Asked Corey how the training went after working with Ninfa, and she stated, went well. She is working on getting hours for patient. Let her know that patient could be ready by tomorrow or the next day for discharge. Asked her how to contact over the week-end, and she left her cards. Stated that there is someone to answer the phones on the weekend, can either try to contact her or the director, Monse Dumont. There is also an after hours number. Asked patient which home health agency she is interested in, and she picked [facility]. Called Yovani at [facility], and he is aware of the referral. Faxed over the face sheet, face to face, H&P, today's progress note, P.T, and O.T. notes. Yovani indicated, can update him on the week-end if she is ready for discharge. Addendum entered by Madonna Whitley R.N. 04/03/22 12:14: Brought in a Medicare Choice List for patient to review with home health agencies. She indicated, she will review and call this DC Hydraulic Specialist back. Completed face to face form. Asked patient if she was also interested in bath aide, she did state, she has [facility] currently, 24 hours a day for spouse, may be able to use them as well, but can still order. Adding nursing (pain assess), P.T, O.T, bath aide. Pending which agency patient chooses. Original Note: DCP Cont: Met with patient in her room. Introduced self and role. Wanted to confirm with patient that she wants home versus skilled. Patient is adamant that she wants home, would be willing to have home health. Confirmed with patient that she has been driving herself to her chemo appointments in [place]. She indicated, she does not need treatment for the next 6-8 weeks. Asked her if she preferred any particular home health agencies, and she stated, she has no preference, what ever you think. Will bring her in the Medicare Choice List later today. Let her know that [facility] and [facility] serve the [place] area, and that they can supply nursing, therapy, and shower aide if needed, which is covered by her insurance. She will be working with therapy today. P: ROSELIA to continue to follow. Will bring patient Medicare Choice List with home health agencies, and can send referral today with her agency of choice. She will be working with therapy further today. Madonna Whitley RN/Embossing Press [employer]
[2022-04-03 08:48] LABS: Hematocrit 30.3 % (36-46); Hemoglobin 10.4 g/dL (12.0-16.0)
[2022-04-03] MEDS: CELECOXIB 200 MG CAPSULE PO (09:32)
[2022-04-03] MEDS: GABAPENTIN 100 MG CAPSULE 200 MG PO ×2 (09:32→20:35)
[2022-04-03] MEDS: DOCUSATE 100 MG CAPSULE PO ×2 (09:32→20:33)
[2022-04-03] MEDS: AMLODIPINE 5 MG TABLET PO (09:32)
[2022-04-03] MEDS: carvediloL 12.5 MG TABLET PO (09:33)
[2022-04-03] MEDS: ENOXAPARIN 40 MG/0.4 ML SYRINGE SUBCUT (09:36)
[2022-04-03] MEDS: LOSARTAN 50 MG TABLET PO ×2 (09:40→20:33)
--- NOTE | 2022-04-03 10:07 | OT.IP.TRT ---
Current Diagnoses Pathological fracture in neoplastic disease, right femur, initial encounter for fracture (03/31/22) Surgery Performed Operation Date: 04/01/22 16:15 Actual Procedures p Hip Hemiarthroplasty(Right) - Minor Cox MD Occupational Therapy Treatment Note M2 OT-IP Current Condition Start: 04/03/22 11:53 Freq: Status: Active Protocol: Document 04/03/22 11:54 [facility] (Rec: 04/03/22 12:08 [facility] [id number]) Occupational Therapy Current Condition Current Condition Evaluation Date 04/03/22 Treatment Diagnosis Right hip femoral neck fx s/p R RYAN, CA with mets Diagnosis Onset Date 03/31/22 M3 OT- IP Subjective and Pain Start: 04/03/22 11:53 Freq: Status: Active Protocol: Document 04/03/22 11:54 [facility] (Rec: 04/03/22 12:08 [facility] [id number]) OT- Subjective Occupational Therapy Visit Type Type Treatment Note Visit Start Time 09:32 Visit Stop Time 10:07 Total Visit Minutes 35 Occupational Therapy Visit Comments Patient Comments Pt states too tired to get up and wanting to save her energy for PT sessions as having caregiver training later. Able to go over ADL equipment and needs with the pt. Patient/Caregiver Goals TO go home OT Pain Assessment Pain When Pain Assessed At Rest Pain Present Pain Present Pain Reported Location Right Hip Intensity 4 M4 OT- IP ADL's Start: 04/03/22 11:53 Freq: Status: Active Protocol: Document 04/03/22 11:54 [facility] (Rec: 04/03/22 12:08 [facility] [id number]) OT ADL-Dressing Comments OT Dressing Comments At this time pt states will have her caregiver assist her with all ADL tasks and slowly take on more when she is doing better. Pt also has CA with lung mets which limits her activity tolerance. Pt agrees that she will not be able to do her compression stocks anymore at this time due to her posterior hip precautions. OT ADL-Toileting Comments OT Toileting Comments Suggested pt get a BSC to use at night, in addition to use pads/brief at night and try to limit water intake at night. OT ADL-Bathing Comments OT Bathing Comments Pt states pending on activity tolerance considering just sponging off initially. Pt would benefit from a bath aid from home health. M6 OT- IP Functional Cognition Start: 04/03/22 11:53 Freq: Status: Active Protocol: Document 04/03/22 11:54 [facility] (Rec: 04/03/22 12:08 [facility] [id number]) Cognitive Factors Limiting Selfcare Function Cognitive Ability Level of Alertness Alert Patient Orientation Name,Age,Birthday,Month,Date, Year,Day of Week,Place, Situation Attention Span Ability Capable of Focused Attention, Capable of Sustained Attention Ability to Follow Commands Able to Follow Multi-Step Commands Memory Description No Deficits Noted Cognitive Comments Cognitive Assessment Comments Pt appears to be intact with no cognitive issue during OT session. OT- Vision and Hearing OT- Hearing Assessment OT- Hearing Assessment WFL OT- Vision Assessment Visual Acuity Glasses For Reading M9 OT- IP Assessment and Plan Start: 04/03/22 11:53 Freq: Status: Active Protocol: Document 04/03/22 11:54 [facility] (Rec: 04/03/22 12:08 [facility] [id number]) OT Summary Assessment and Plan Potential Rehabilitation Potential Good Summary OT Impairments Pain,Functional Mobility, Dressing,Toileting,Bathing, Toilet Transfers,Shower Transfers,Activity Tolerance Progress Towards Goals Slow Progress due to Pain,Slow Progress due to Medical Issues,Slow Progress due to Activity Tolerance Assessment Summary Pt not having energy to get up at this time and wanting to save her energy for caregiver training with PT today. Able to thoroughly go over ADL equipment needs and suggestions. To touch base with her caregiver this PM. Pt looking to go home with 24/7 assist and home health pending caregiver training needs. Discharge Recommendations OT Discharge Recommendations Home with 24/7 Assist Available,Home Health Home Equipment Needs BSC shoe horn and bath sponge issued Transportation Needs at Discharge Private Vehicle
--- NOTE | 2022-04-03 10:30 | PT.IPTN ---
Current Diagnoses Pathological fracture in neoplastic disease, right femur, initial encounter for fracture (03/31/22) Surgery Performed Operation Date: 04/01/22 16:15 Actual Procedures p Hip Hemiarthroplasty(Right) - Minor Cox MD Physical Therapy Treatment Note M2 PT-IP Current Condition Start: 03/31/22 12:10 Freq: NEEDED Status: Active Protocol: Document 04/02/22 10:25 AB (Rec: 04/02/22 13:20 AB [email or web address]) Physical Therapy Current Condition Current Condition Evaluation Date 04/02/22 Treatment Diagnosis R fem neck fx s/p hemiarthroplasty; CA w/ lung mets; difficulty in walking Onset Date 03/31/22 M3 PT-IP Subjective Start: 03/31/22 12:10 Freq: NEEDED Status: Active Protocol: Document 04/03/22 10:30 AB (Rec: 04/03/22 12:39 AB [email or web address]) Subjective Physical Therapy Visit Type Type Treatment Note Visit Start Time 10:30 Visit Stop Time 11:10 Total Visit Minutes 40 Number of CARDIAC EXERCISE SPECIALIST Visits 0 Physical Therapy Visit Comments Patient Comments agreeable to do PT M4 PT-IP Mobility and Gait Start: 03/31/22 12:10 Freq: NEEDED Status: Active Protocol: Document 04/03/22 10:30 AB (Rec: 04/03/22 12:39 AB [email or web address]) PT-Bed Mobility Assessment Supine to Sit Supine to Sit Standby Assistance PT-Transfer Assessment Sit to and From Stand Sit to and from Stand Contact Guard Assistance,1 Person Assistance,Use of Upper Extremities Equipment Transfer Assistive Device Gait Belt,Front Wheeled Walker Orthotic/Prosthetic Devices or Brace: No Transfers Transfer Destination Chair Transfer Technique Stand Step Pivot Transfer Ability Level of Assist Contact Guard Assistance,1 Person Assistance,Use of Upper Extremities Comments Mobility Comments reviewed hip precautions and pt continue to require cues to review. completed supine to sit SBA. completed sit to stand cGA and step transfer to chair using fWW CGA. pt sat on chair. c/o lightheadedness . BP checked: 154/63. pt agreed to ambulated. completed sit to stand from chair CGA and ambulated in room ~ 30 ft using FWW CGA to min A. c/o lightheadedness midway during ambulation but able to ambulate back to chair and sat. BP checked: 95/46. positioned pt on chair. nurse aware of PT. BP checked again seated 116/60. call light and table placed within reach. Gait Assessment Gait Gait Assistance Required: Contact Guard Assist,Minimum Assistance Distance (Feet) 30 Able to Maintain Weight Bearing Status Yes During Gait Assistive Devices Assistive Device Gait Belt,Front Wheeled Walker Orthotic/Prosthetic Devices or Brace: No Gait Deviations General Gait Pattern Antalgic,Decreased Stride Length,Decreased Feet Clearance Factors Limiting Gait Function Factors Limiting Gait Function Decreased Activity Tolerance, Decreased Strength,Difficulty Following Directions,Limited Range of Motion,Pain,Poor Balance,Poor Safety Awareness M5 PT-IP Objective Assessments Start: 03/31/22 12:10 Freq: NEEDED Status: Active Protocol: Document 04/02/22 10:25 [facility] (Rec: [facility]/02/22 13:[facility] Orientation Orientation/Cognition Level of Alertness Alert Orientation Name,Place,Situation Language Function Ability No Deficits Noted Safety Awareness Decreased Safety Awareness Memory Description Short Term Impaired Gross Range of Motion Lower Extremity ROM Assessment Within Functional Limits Strength Lower Extremity Strength Assessment Right Impaired Hip 3+/5 Knee 4-/5 Coordination Assessment Gross Coordination Gross Coordination WNL Muscle Tone Muscle Tone WNL Yes M6 PT-IP Treatment Start: 03/31/22 12:10 Freq: NEEDED Status: Active Protocol: Document 04/03/22 10:30 [facility] (Rec: 04/03/22 12:39 [facility] Physical Therapy Treatment Education Education Provided Precautions,Safety M7 PT-IP Assessment and Plan Start: 03/31/22 12:10 Freq: NEEDED Status: Active Protocol: Document 04/03/22 10:30 AB (Rec: 04/03/22 12:39 [facility] PT Summary Assessment and Plan Potential Rehabilitation Potential Fair Summary Impairments Pain,ROM,Strength,Balance, Coordination,Sensation,Tone, Cognition,Bed Mobility, Transfers,Gait,Activity Tolerance Progress Towards Goals Slow Progress due to Pain,Slow Progress due to Medical Issues,Slow Progress due to Activity Tolerance Assessment Summary Pt progressing with mobility but continues to require cues for safety. unable to tolerate much activity this morning due to c/o lightheadedness with decrease in BP. caregiver training set up this afternoon at 1pm. Goals Bed Mobility Goal Standby Assistance Transfer Goal Independent,Front Wheeled Walker Gait Goal Standby Assistance,Front Wheel Walker Gait Distance 150 Other Goals up/down 3 steps B rails SBA Days to Meet Goals 10 Frequency of Treatment Frequency Of Treatment Twice a Day Treatment Plan Physical Therapy Treatment Plan Bed Mobility Training,Transfer Training,Gait Training, Therapeutic Exercise,Balance Retraining,Post Op Education, Discharge Planning,Hot or Cold Pack,Neuromuscular Re-ed, Coordination Retraining,Manual Therapy Precautions Posterior Hip Precautions No Hip Flexion > 90 degrees,No Hip Internal Rotation,No Hip Adduction Weight Bearing Status Weight Bearing Status Weight Bear as Tolerated Allowed Weight Bearing Amount (enter % RLE WBAT or #) (%) Recommendations To Nursing Amount of Assist Needed 1 Person Assist Discharge Recommendations PT Discharge Recommendations Home with 29/03 Assist Available,Home Health,SNF Rehab,Home vs SNF Transportation Needs at Discharge Private Vehicle,Wheelchair/ Cabulance
[2022-04-03] MEDS: ACETAMINOPHEN 325 MG TABLET 650 MG PO (12:12)
--- NOTE | 2022-04-03 13:10 | PT.IPTN ---
Current Diagnoses Pathological fracture in neoplastic disease, right femur, initial encounter for fracture (03/31/22) Surgery Performed Operation Date: 04/01/22 16:15 Actual Procedures p Hip Hemiarthroplasty(Right) - Minor Cox MD Physical Therapy Treatment Note M2 PT-IP Current Condition Start: 03/31/22 12:10 Freq: NEEDED Status: Active Protocol: Document 04/02/22 10:25 AB (Rec: 04/02/22 13:20 AB [email or web address]) Physical Therapy Current Condition Current Condition Evaluation Date 04/02/22 Treatment Diagnosis R fem neck fx s/p hemiarthroplasty; CA w/ lung mets; difficulty in walking Onset Date 03/31/22 M3 PT-IP Subjective Start: 03/31/22 12:10 Freq: NEEDED Status: Active Protocol: Document 04/03/22 13:10 AB (Rec: 04/03/22 15:04 AB [email or web address]) Subjective Physical Therapy Visit Type Type Treatment Note Visit Start Time 13:10 Visit Stop Time 14:35 Total Visit Minutes 85 Number of TREASURY REPRESENTATIVE Visits 0 Physical Therapy Visit Comments Patient Comments agreeable to do PT M4 PT-IP Mobility and Gait Start: 03/31/22 12:10 Freq: NEEDED Status: Active Protocol: Document 04/03/22 13:10 AB (Rec: 04/03/22 15:04 AB [email or web address]) PT-Bed Mobility Assessment Supine to Sit Supine to Sit Standby Assistance Sit to Supine Sit to Supine Minimal Assistance,Moderate Assistance,1 Person Assistance PT-Transfer Assessment Sit to and From Stand Sit to and from Stand Contact Guard Assistance,1 Person Assistance,Use of Upper Extremities Equipment Transfer Assistive Device Gait Belt,Front Wheeled Walker Orthotic/Prosthetic Devices or Brace: No Transfers Transfer Destination Bed Transfer Technique ambulated Transfer Ability Level of Assist Contact Guard Assistance,1 Person Assistance Comments Mobility Comments caregiver arrived and educated on pt's hip precautions. educated on use of safety belt and how to assist pt. BP sittin/65. caregiver was able to put safety belt on pt. assisted with sit to stand and cued pt when needed. pt ambulated in room using FWW CGA with caregiver assisting ~ 20 ft and pt has to sit down. c/o lightheadedness. BP checked: 120/66. educated on safety and stair climbing techniques. BP checked after restin/74. pt has access to a w/ c and plans to use a w/c depending on endurance level. educated on safety and energy conservation. pt transferred to w/c using FWW with caregiver assisting. assisted pt towards the stairs. completed stair climbing using B rails with caregiver providing CGA to min A. assisted pt back to her room. transferred from w/c to EOB with caregiver assisting. completed sit to supine min A to mod A for LE elevation and cued caregiver on how to assist and was able to assist pt safely. completed supine to sit SBA. requested to go back to bed and completed sit to supine again with caregiver assisting. positioned pt in bed. call light and table placed within reach. Pt and caregiver without further concerns. Caregiver that is present stated that she will dispense and do training with other staff members that will assist pt upon dc. Gait Assessment Gait Gait Assistance Required: Contact Guard Assist Distance (Feet) 20 Able to Maintain Weight Bearing Status Yes During Gait Assistive Devices Assistive Device Gait Belt,Front Wheeled Walker Orthotic/Prosthetic Devices or Brace: No Gait Deviations General Gait Pattern Decreased Stride Length, Decreased Feet Clearance,Step- to Gait Factors Limiting Gait Function Factors Limiting Gait Function Decreased Activity Tolerance, Decreased Strength,Difficulty Following Directions,Limited Range of Motion,Pain,Poor Balance,Poor Safety Awareness Stair Climbing Assessment Evaluation Level of Assist On Stairs Contact Guard Assistance, Minimal Assistance Devices Stair Climbing Assistive Devices Left Railing,Right Railing Technique/Endurance Stair Climbing Direction Ascend and Descend Stair Climbing Technique Step to Step Number of Steps Climbed 3 Stair Climbing Set # Repetitions (reps) 1 M5 PT-IP Objective Assessments Start: 03/31/22 12:10 Freq: NEEDED Status: Active Protocol: Document 04/02/22 10:25 AB (Rec: 04/02/22 13:20 AB [id number]) Orientation Orientation/Cognition Level of Alertness Alert Orientation Name,Place,Situation Language Function Ability No Deficits Noted Safety Awareness Decreased Safety Awareness Memory Description Short Term Impaired Gross Range of Motion Lower Extremity ROM Assessment Within Functional Limits Strength Lower Extremity Strength Assessment Right Impaired Hip 3+/5 Knee 4-/5 Coordination Assessment Gross Coordination Gross Coordination WNL Muscle Tone Muscle Tone WNL Yes M6 PT-IP Treatment Start: 03/31/22 12:10 Freq: NEEDED Status: Active Protocol: Document 04/03/22 13:10 AB (Rec: 04/03/22 15:04 [id number]) Physical Therapy Treatment Education Education Provided Precautions,Weight Bearing Status,Post-Op Packet,Safety M7 PT-IP Assessment and Plan Start: 03/31/22 12:10 Freq: NEEDED Status: Active Protocol: Document 04/03/22 13:10 AB (Rec: 04/03/22 15:04 AB [id number]) PT Summary Assessment and Plan Potential Rehabilitation Potential Good Summary Impairments Pain,ROM,Strength,Balance, Coordination,Sensation,Tone, Cognition,Bed Mobility, Transfers,Gait,Activity Tolerance Progress Towards Goals Slow Progress due to Medical Issues,Slow Progress due to Activity Tolerance Assessment Summary caregiver training conducted and caregiver was able to safely assist pt with mobility . pt continues to have decrease activity tolernace affecting mobility level but has access to a w/c and plans to have 29/03 caregiver to assist her at home. Pt will need HHPT. Goals Bed Mobility Goal Standby Assistance Transfer Goal Independent,Front Wheeled Walker Gait Goal Standby Assistance,Front Wheel Walker Gait Distance 150 Other Goals up/down 3 steps B rails SBA Days to Meet Goals 10 Frequency of Treatment Frequency Of Treatment Twice a Day Treatment Plan Physical Therapy Treatment Plan Bed Mobility Training,Transfer Training,Gait Training, Therapeutic Exercise,Balance Retraining,Post Op Education, Discharge Planning,Hot or Cold Pack,Neuromuscular Re-ed, Coordination Retraining,Manual Therapy Precautions Posterior Hip Precautions No Hip Flexion > 90 degrees,No Hip Internal Rotation,No Hip Adduction Weight Bearing Status Weight Bearing Status Weight Bear as Tolerated Allowed Weight Bearing Amount (enter % RLE WBAT or #) (%) Recommendations To Nursing Amount of Assist Needed 1 Person Assist Discharge Recommendations PT Discharge Recommendations Home with 29/03 Assist Available,Home Health Transportation Needs at Discharge Private Vehicle,Wheelchair/ Cabulance
--- NOTE | 2022-04-03 14:45 | OT.IP.TRT ---
Current Diagnoses Pathological fracture in neoplastic disease, right femur, initial encounter for fracture (03/31/22) Surgery Performed Operation Date: 04/01/22 16:15 Actual Procedures p Hip Hemiarthroplasty(Right) - Minor Cox MD Occupational Therapy Treatment Note M2 OT-IP Current Condition Start: 04/03/22 11:53 Freq: Status: Active Protocol: Document 04/03/22 11:54 [facility] (Rec: 04/03/22 12:08 [facility] [id number]) Occupational Therapy Current Condition Current Condition Evaluation Date 04/03/22 Treatment Diagnosis Right hip femoral neck fx s/p R RYAN, CA with mets Diagnosis Onset Date 03/31/22 M3 OT- IP Subjective and Pain Start: 04/03/22 11:53 Freq: Status: Active Protocol: Document 04/03/22 14:48 [facility] (Rec: 04/03/22 14:52 [facility] [id number]) OT- Subjective Occupational Therapy Visit Type Type Treatment Note Visit Start Time 14:35 Visit Stop Time 14:45 Total Visit Minutes 10 Occupational Therapy Visit Comments Patient Comments Pt in bed resting after PT session of caregiver training. Patient/Caregiver Goals TO go home. OT Pain Assessment Pain When Pain Assessed At Rest Pain Present Pain Present Pain Reported M4 OT- IP ADL's Start: 04/03/22 11:53 Freq: Status: Active Protocol: Document 04/03/22 14:48 [facility] (Rec: 04/03/22 14:52 [facility] [id number]) OT ADL-Dressing Comments OT Dressing Comments Able to talk to caregiver fo dressing needs and definitely the need for assist with compression stocking. OT ADL-Toileting Comments OT Toileting Comments Pt states to get BSC, and already has wipes and to get pads/briefs. OT ADL-Bathing Comments OT Bathing Comments Pt agreed to having a bath aid would be helpful. M6 OT- IP Functional Cognition Start: 04/03/22 11:53 Freq: Status: Active Protocol: Document 04/03/22 11:54 [facility] (Rec: 04/03/22 12:08 [facility] [id number]) Cognitive Factors Limiting Selfcare Function Cognitive Ability Level of Alertness Alert Patient Orientation Name,Age,Birthday,Month,Date, Year,Day of Week,Place, Situation Attention Span Ability Capable of Focused Attention, Capable of Sustained Attention Ability to Follow Commands Able to Follow Multi-Step Commands Memory Description No Deficits Noted Cognitive Comments Cognitive Assessment Comments Pt appears to be intact with no cognitive issue during OT session. OT- Vision and Hearing OT- Hearing Assessment OT- Hearing Assessment WFL OT- Vision Assessment Visual Acuity Glasses For Reading M9 OT- IP Assessment and Plan Start: 04/03/22 11:53 Freq: Status: Active Protocol: Document 04/03/22 11:54 [facility] (Rec: 04/03/22 12:08 [facility] [id number]) OT Summary Assessment and Plan Potential Rehabilitation Potential Good Summary OT Impairments Pain,Functional Mobility, Dressing,Toileting,Bathing, Toilet Transfers,Shower Transfers,Activity Tolerance Progress Towards Goals Slow Progress due to Pain,Slow Progress due to Medical Issues,Slow Progress due to Activity Tolerance Assessment Summary Pt caregiver present to hear OT equipment needs and suggestions. Pt anticipating going home with 24/7 assist and home health. Discharge Recommendations OT Discharge Recommendations Home with 24/7 Assist Available,Home Health Home Equipment Needs BSC shoe horn and bath sponge issued Transportation Needs at Discharge Private Vehicle
[2022-04-03] MEDS: carvediloL 12.5 MG TABLET 6.25 MG PO (17:54)
[2022-04-04] VITALS (10 sets, daily range): BP systolic 151–191; BP diastolic 57–82; PULSE 63–79; RESP 16–19; TEMP 36.3–36.9; O2SAT 96–99
[2022-04-04] MEDS: ACETAMINOPHEN 325 MG TABLET 650 MG PO ×5 (00:26→23:28)
[2022-04-04] MEDS: carvediloL 12.5 MG TABLET PO ×2 (07:49→20:24)
[2022-04-04] MEDS: GABAPENTIN 100 MG CAPSULE 200 MG PO ×2 (07:49→20:24)
[2022-04-04] MEDS: AMLODIPINE 5 MG TABLET PO (07:50)
[2022-04-04] MEDS: LOSARTAN 50 MG TABLET PO ×2 (07:50→20:25)
[2022-04-04] MEDS: DOCUSATE 100 MG CAPSULE PO ×2 (07:50→20:26)
[2022-04-04] MEDS: CELECOXIB 200 MG CAPSULE PO (07:50)
[2022-04-04] MEDS: ENOXAPARIN 40 MG/0.4 ML SYRINGE SUBCUT (07:51)
--- NOTE | 2022-04-04 08:43 | OT.IPNOTE ---
Pt will have caregivers 29/03 to assist with all her ADL needs and and nursing assisting her here in the hospital due to limited activity tolerance. Able to finalize all OT equipment needs and suggestions with pt, therefore discharge pt for OT services. No charge.
--- NOTE | 2022-04-04 10:42 | P.PN_ITS ---
Subjective Subjective Date Patient Seen: 04/04/22 Time Patient Seen: 09:35 Interval history: Patient is complaining of moderate right hip pain. Her biggest concern is her elevated blood pressure. She does note she had headache over night. She is not feeling dizzy or lightheaded. She is working with physical therapy. Exam Vital Signs (past 8 hours): - 04/04/22 05:59 04/04/22 07:49 04/04/22 07:50 Temperature 97.4 F L Pulse Rate 65 63 63 Respiratory Rate 16 Blood Pressure 180/70 H 191/82 H 191/82 H Pulse Oximetry 96 Oxygen Delivery Method Oxygen Flow Rate 04/04/22 07:35 04/04/22 08:08 Temperature 98.3 F Pulse Rate 69 Respiratory Rate 17 Blood Pressure 170/71 H Pulse Oximetry 97 97 Oxygen Delivery Method Room Air Oxygen Flow Rate 0 Oxygen Delivery Method Room Air Oxygen Flow Rate 0 Narrative Exam Narrative: 82-year-old female, resting comfortably in bed, no acute distress. Dressing is clean, dry, intact. Bilateral lower extremity: Motor functions are grossly intact, sensation is grossly intact to light touch, calves are soft and nontender to palpation. 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 Pulmonary nodule Scoliosis Surgical History History of lung biopsy (2016) History of partial pancreatectomy S/P total abdominal hysterectomy and bilateral salpingo-oophorectomy (~2013) Status post exploratory laparotomy Status post hip hemiarthroplasty (04/01/22) Status post splenectomy (2015) Social History household members: spouse Smoking Status: Former smoker alcohol intake: former Assessment & Plan Post-op Postoperative Procedures: Procedures Operation Date: 04/01/22 16:15 Actual Procedure Side Surgeon p Hip Hemiarthroplasty Right Minor Cox MD Postoperative day: 3 Postoperative status narrative: -stable status post right hip hemiarthroplasty -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 Weightbearing as tolerated with front wheel walker. Maintain posterior hip precautions x6 weeks -patient will need 6 weeks of DVT prophylaxis, currently on Lovenox 40 mg -continue with multimodal pain management -patient is concerned about her elevated blood pressure, encouraged to work with primary Hospitalist team to make adjustments in medications as needed. -patient would like to be discharged home once she is deemed safe by the [facility] ali team and cleared by Physical therapy Quality VTE Deep Vein Thrombosis/Pulmonary Embolism Present on Admission: No
--- NOTE | 2022-04-04 11:00 | P.PN_ITS ---
Subjective Subjective Date Patient Seen: 04/04/22 Time Patient Seen: 11:00 Interval history: Patient doing all right overall. Relatively uneventful day yesterday. Concerned about her elevated blood pressure which is exceed 200 systolic this morning. She is had a bit of a headache. However she also had some hypotension with systolic in the 90s working with physical therapy yesterday. (the lowest I can see in the PT notes is 120 but patient was lightheaded with that although lightheaded with a blood pressure 150 in another episode as well) Clearly feeling better doing more with physical therapy up even doing a couple of stairs very carefully very slowly she reports to me Exam Vital Signs (past 8 hours): - 04/04/22 05:59 04/04/22 07:49 04/04/22 07:50 Temperature 97.4 F L Pulse Rate 65 63 63 Respiratory Rate 16 Blood Pressure 180/70 H 191/82 H 191/82 H Pulse Oximetry 96 Oxygen Delivery Method Oxygen Flow Rate 04/04/22 07:35 04/04/22 08:08 Temperature 98.3 F Pulse Rate 69 Respiratory Rate 17 Blood Pressure 170/71 H Pulse Oximetry 97 97 Oxygen Delivery Method Room Air Oxygen Flow Rate 0 Oxygen Delivery Method Room Air Oxygen Flow Rate 0 Objective Labs Result Diagrams: 04/03/22 08:38 04/01/22 06:02 [facility] Medical History Arthritis Essential hypertension 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 Postop day 3 status post right hemiarthroplasty-continued rehabilitation and skilled therapies as per Orthopedic surgery. Plan is for her to discharge home and is nearing that she is had tremendous improvement even in the last 24 hours. However likely she will be here another 48 hours or so 2. Hypertension-patient with significant hypertension which is been an ongoing struggle for her for years frankly. She gets quite symptomatic when her blood pressure is frankly closer to normal she has struggled because when her blood p ressure is 120 she does indeed feel poorly which is limited our ability to treat her blood pressure in a very tight narrow range. However I do think she would benefit from tighter blood pressure control and I am going to at this point add some topical nitrates which can be removed and the effect removed rapidly if need be if she develops hypotension. I am going to slowly increase her carvedilol up to 12.5 mg twice a day. Heart rates been in the mid 60s I think she will tolerate a slight increase in beta blockade and I do think we should go slow with additional medication for hypertension. Again something like the nitroglycerin topically that can be discontinued and its effect discontinued rapidly I think is going to be helpful. 3. Disposition-patient to go home when safe as per physical therapy Orthopedic surgery and my evaluation as well. Likely to happen sometime in the next 24-72 hours although at this point it is 1 day at a time of course. Note: Greater than 30 minutes total time was spent on day of service, evaluating the patient on the floor, including examining the patient, discussing clinical course with clinical and nursing staff, reviewing clinical course in the computer, preparing documentation and writing orders for continued management of care, discussing status with family as appropriate, reviewing plans for the next 24 hours with both patient/family and nursing staff as appropriate. Quality VTE Deep Vein Thrombosis/Pulmonary Embolism Present on Admission: No
--- NOTE | 2022-04-04 11:26 | PT.IPTN ---
Current Diagnoses Pathological fracture in neoplastic disease, right femur, initial encounter for fracture (03/31/22) Surgery Performed Operation Date: 04/01/22 16:15 Actual Procedures p Hip Hemiarthroplasty(Right) - Minor Cox MD Physical Therapy Treatment Note M2 PT-IP Current Condition Start: 03/31/22 12:10 Freq: NEEDED Status: Active Protocol: Document 04/02/22 10:25 AB (Rec: 04/02/22 13:20 AB [id number]) Physical Therapy Current Condition Current Condition Evaluation Date 04/02/22 Treatment Diagnosis R fem neck fx s/p hemiarthroplasty; CA w/ lung mets; difficulty in walking Onset Date 03/31/22 M3 PT-IP Subjective Start: 03/31/22 12:10 Freq: NEEDED Status: Active Protocol: Document 04/04/22 11:10 KS (Rec: 04/04/22 12:32 KS [id number]) Subjective Physical Therapy Visit Type Type Treatment Note Visit Start Time 11:10 Visit Stop Time 11:26 Total Visit Minutes 16 Number of FOREST AIDE Visits 1 Physical Therapy Visit Comments Patient Comments agreeable to do PT M4 PT-IP Mobility and Gait Start: 03/31/22 12:10 Freq: NEEDED Status: Active Protocol: Document 04/04/22 11:10 KS (Rec: 04/04/22 12:32 KS [id number]) PT-Bed Mobility Assessment Supine to Sit Supine to Sit Standby Assistance Scooting Scooting to Edge of Bed Standby Assistance PT-Transfer Assessment Sit to and From Stand Sit to and from Stand Contact Guard Assistance,1 Person Assistance,Use of Upper Extremities Equipment Transfer Assistive Device Gait Belt,Front Wheeled Walker Orthotic/Prosthetic Devices or Brace: No Transfers Transfer Destination Toilet Transfer Technique ambulated Transfer Ability Level of Assist Contact Guard Assistance,1 Person Assistance Comments Mobility Comments Pt in bed upon arrival and requesting assistance to walk to toilet. Pt SBA for sup<>Sit and scooting EOB. BP: 173/74. Pt sit<>stand w/ FWW and ambulated ~15 ft to toilet and sat down CGA. Pt left w/ call light as requested. Gait Assessment Gait Gait Assistance Required: Contact Guard Assist Distance (Feet) 15 Able to Maintain Weight Bearing Status Yes During Gait Assistive Devices Assistive Device Gait Belt,Front Wheeled Walker Orthotic/Prosthetic Devices or Brace: No Gait Deviations General Gait Pattern Decreased Stride Length, Decreased Feet Clearance,Step- to Gait Factors Limiting Gait Function Factors Limiting Gait Function Decreased Activity Tolerance, Decreased Strength,Limited Range of Motion,Pain,Poor Balance Comments Gait Comments Good use of FWW, no LOB . Stair Climbing Assessment Comments Stair Climbing Comments Did not assess. PT-Balance Assessment Sitting Balance and Reactions Static Sitting Balance Ability Good Dynamic Sitting Balance Ability Good Standing Balance and Reactions Static Standing Balance Ability Fair Dynamic Standing Balance Ability Fair Device Used FWW M5 PT-IP Objective Assessments Start: 03/31/22 12:10 Freq: NEEDED Status: Active Protocol: Document 04/02/22 10:25 AB (Rec: 04/02/22 13:20 AB [email or web address]) Orientation Orientation/Cognition Level of Alertness Alert Orientation Name,Place,Situation Language Function Ability No Deficits Noted Safety Awareness Decreased Safety Awareness Memory Description Short Term Impaired Gross Range of Motion Lower Extremity ROM Assessment Within Functional Limits Strength Lower Extremity Strength Assessment Right Impaired Hip 3+/5 Knee 4-/5 Coordination Assessment Gross Coordination Gross Coordination WNL Muscle Tone Muscle Tone WNL Yes M6 PT-IP Treatment Start: 03/31/22 12:10 Freq: NEEDED Status: Active Protocol: Document 04/04/22 11:10 KS (Rec: 04/04/22 12:32 KS [id number]) Physical Therapy Treatment Education Education Provided Precautions,Weight Bearing Status,Safety M7 PT-IP Assessment and Plan Start: 03/31/22 12:10 Freq: NEEDED Status: Active Protocol: Document 04/04/22 11:10 KS (Rec: 04/04/22 12:32 KS [id number]) PT Summary Assessment and Plan Potential Rehabilitation Potential Good Summary Impairments Pain,ROM,Strength,Balance, Coordination,Sensation,Tone, Cognition,Bed Mobility, Transfers,Gait,Activity Tolerance Progress Towards Goals Slow Progress due to Medical Issues,Slow Progress due to Activity Tolerance Assessment Summary Pt requiring SBA to CGA for assistance today. Good awareness and adherence to precautions. Completed caregiver training w/ her yesterday. She will require HHPt to improve strength and functional mobility. Goals Bed Mobility Goal Standby Assistance Transfer Goal Independent,Front Wheeled Walker Gait Goal Standby Assistance,Front Wheel Walker Gait Distance 150 Other Goals up/down 3 steps B rails SBA Days to Meet Goals 10 Frequency of Treatment Frequency Of Treatment Twice a Day Treatment Plan Physical Therapy Treatment Plan Bed Mobility Training,Transfer Training,Gait Training, Therapeutic Exercise,Balance Retraining,Post Op Education, Discharge Planning,Hot or Cold Pack,Neuromuscular Re-ed, Coordination Retraining,Manual Therapy Precautions Posterior Hip Precautions No Hip Flexion > 90 degrees,No Hip Internal Rotation,No Hip Adduction Weight Bearing Status Weight Bearing Status Weight Bear as Tolerated Allowed Weight Bearing Amount (enter % RLE WBAT or #) (%) Recommendations To Nursing Amount of Assist Needed 1 Person Assist Discharge Recommendations PT Discharge Recommendations Home with 29/03 Assist Available,Home Health Transportation Needs at Discharge Private Vehicle,Wheelchair/ Cabulance
[2022-04-04] MEDS: NITROGLYCERIN OINT 1 INCH/GM OINT...G. 0.5 INCH TOP (11:46)
--- NOTE | 2022-04-04 13:25 | PT-IP ANOTE ---
Attempted to see pt at 13:24, pt reports just getting back into bed and felt very lightheaded during transfer and therefore does not want PT this PM. Pt SBA to CGA this AM and w/ nursing staff.
[2022-04-04] MEDS: HYDROMORPHONE 2 MG TABLET PO (14:39)
[2022-04-05] VITALS (9 sets, daily range): BP systolic 132–192; BP diastolic 63–80; PULSE 63–83; RESP 16–18; TEMP 35.8–36.8; O2SAT 96–98
[2022-04-05] MEDS: ACETAMINOPHEN 325 MG TABLET 650 MG PO ×4 (06:41→23:46)
[2022-04-05] MEDS: ENOXAPARIN 40 MG/0.4 ML SYRINGE SUBCUT (08:45)
[2022-04-05] MEDS: DOCUSATE 100 MG CAPSULE PO ×2 (08:45→20:52)
[2022-04-05] MEDS: CELECOXIB 200 MG CAPSULE PO (08:47)
[2022-04-05] MEDS: LOSARTAN 50 MG TABLET PO ×2 (08:47→20:52)
[2022-04-05] MEDS: carvediloL 12.5 MG TABLET PO ×2 (08:51→20:52)
[2022-04-05] MEDS: AMLODIPINE 5 MG TABLET PO ×2 (08:51→11:36)
[2022-04-05] MEDS: GABAPENTIN 100 MG CAPSULE 200 MG PO ×2 (08:51→20:52)
--- NOTE | 2022-04-05 10:13 | P.PN_ITS ---
Subjective Subjective Date Patient Seen: 04/05/22 Time Patient Seen: 08:20 Interval history: Postop day 4 right hip hemiarthroplasty with Dr. Cox. Patient doing well. In bedside chair finishing breakfast. Pain is 0. Most concerned about her elevated blood pressure Exam Vital Signs (past 8 hours): - 04/05/22 03:01 04/05/22 08:47 04/05/22 08:51 Temperature 96.4 F L Pulse Rate 63 83 83 Respiratory Rate 16 Blood Pressure 188/78 H 160/80 H 160/80 H Pulse Oximetry 97 Oxygen Delivery Method Oxygen Flow Rate 04/05/22 07:40 04/05/22 10:02 Temperature 98.2 F Pulse Rate 69 Respiratory Rate 18 Blood Pressure 192/74 H Pulse Oximetry 96 96 Oxygen Delivery Method Room Air Oxygen Flow Rate 0 Oxygen Delivery Method Room Air Oxygen Flow Rate 0 Narrative Exam Narrative: Alert oriented no acute distress. Sitting in bedside chair. Respirations unlabored.. Elevated blood pressure. Demonstrates dorsiflexion plantar flexion of her ankles. Calves are soft. 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 Pulmonary nodule Scoliosis Surgical History History of lung biopsy (2016) History of partial pancreatectomy S/P total abdominal hysterectomy and bilateral salpingo-oophorectomy (~2013) Status post exploratory laparotomy Status post hip hemiarthroplasty (04/01/22) Status post splenectomy (2015) Social History household members: spouse Smoking Status: Former smoker alcohol intake: former Assessment & Plan Post-op Postoperative Procedures: Procedures Operation Date: 04/01/22 16:15 Actual Procedure Side Surgeon p Hip Hemiarthroplasty Right Minor Cox MD Postoperative day: 4 Postoperative status: doing well Postoperative status narrative: Doing well postop day for right hip hemiarthroplasty posterior approach with Dr. Cox. Postoperative plan: routine post-op care Postoperative plan narrative: Ambulate with walker. Weight bear as tolerated. Posterior hip precautions. DVT prophylaxis. Follow up outpatient with Orthopedics Time Spent With Patient Time with patient: less than 15 minutes Quality VTE Deep Vein Thrombosis/Pulmonary Embolism Present on Admission: No
--- NOTE | 2022-04-05 10:54 | PM.PN.1 ---
Subjective Subjective Date Patient Seen: 04/05/22 Time Patient Seen: 10:54 Interval history: Pretty uneventful day yesterday. Patient up with physical therapy moving pretty well. Still gets lightheaded at times without any real reproducible pattern and does not appear to be necessarily associated with hypotension of any significant degree Remains fairly concerned about her blood pressure which continues to be elevated first thing in the morning and then persistently 160-170 after that No new issues or complaints or problems identified Exam Vital Signs (past 8 hours): - 04/05/22 03:01 04/05/22 08:47 04/05/22 08:51 Temperature 96.4 F L Pulse Rate 63 83 83 Respiratory Rate 16 Blood Pressure 188/78 H 160/80 H 160/80 H Pulse Oximetry 97 Oxygen Delivery Method Oxygen Flow Rate 04/05/22 07:40 04/05/22 10:02 Temperature 98.2 F Pulse Rate 69 Respiratory Rate 18 Blood Pressure 192/74 H Pulse Oximetry 96 96 Oxygen Delivery Method Room Air Oxygen Flow Rate 0 Oxygen Delivery Method Room Air Oxygen Flow Rate 0 Objective Labs Result Diagrams: 04/03/22 08:38 04/01/22 06:02 [facility] Medical History Arthritis Essential hypertension 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 Postop day 4 status post right hemiarthroplasty-continued rehabilitation and postoperative management as per Orthopedic surgery. Planning to go home from here with home health services as well as additional private health care assistance etcetera 2. Hypertension-patient persists with hypertension. This been difficult to control despite multiple medications in the past. I am somewhat concerned about producing hypotension but I think at this point I am going to increase her calcium channel krystyna. She normally takes felodipine at home which is not on formulary here but amlodipine here is really fairly equivalent. I am going to increase her dose from 5 mg currently to 10 mg daily. I have already increased her carvedilol dose slightly from what it was before so now she is taking 12.5 mg twice daily. She may be able to tolerate a higher dose of this as well looking at her heart rate which is in the 70s and 80s consistently. Overall I am not worried about blood pressure in the 160s for the next several weeks but would not want to be at that level for month after month and certainly with the Avastin which can cause hypertension (which she will be off for the next couple of months) will need to be super cautious. 3. Disposition-patient planning to return home which I think given the resources she has at her disposal and is working to arrange is entirely appropriate. Patient should be ready for discharge in my opinion sometime the next 24-48 hours in all likelihood Note: Greater than 30 minutes total time was spent on day of service, evaluating the patient on the floor, including examining the patient, discussing clinical course with clinical and nursing staff, reviewing clinical course in the computer, preparing documentation and writing orders for continued management of care, discussing status with family as appropriate, reviewing plans for the next 24 hours with both patient/family and nursing staff as appropriate. Quality VTE Deep Vein Thrombosis/Pulmonary Embolism Present on Admission: No
--- NOTE | 2022-04-05 15:00 | PT.IPTN ---
Current Diagnoses Pathological fracture in neoplastic disease, right femur, initial encounter for fracture (03/31/22) Surgery Performed Operation Date: 04/01/22 16:15 Actual Procedures p Hip Hemiarthroplasty(Right) - Minor Cox MD Physical Therapy Treatment Note M2 PT-IP Current Condition Start: 03/31/22 12:10 Freq: NEEDED Status: Active Protocol: Document 04/02/22 10:25 AB (Rec: 04/02/22 13:20 AB [id number]) Physical Therapy Current Condition Current Condition Evaluation Date 04/02/22 Treatment Diagnosis R fem neck fx s/p hemiarthroplasty; CA w/ lung mets; difficulty in walking Onset Date 03/31/22 M3 PT-IP Subjective Start: 03/31/22 12:10 Freq: NEEDED Status: Active Protocol: Document 04/05/22 15:00 AW (Rec: 04/05/22 16:05 AW [id number]) Subjective Physical Therapy Visit Type Type Treatment Note Visit Start Time 14:46 Visit Stop Time 15:00 Total Visit Minutes 14 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 Physical Therapy Visit Comments Patient Comments agreeable to do PT M4 PT-IP Mobility and Gait Start: 03/31/22 12:10 Freq: NEEDED Status: Active Protocol: Document 04/05/22 15:00 AW (Rec: 04/05/22 16:05 AW [id number]) PT-Bed Mobility Assessment Supine to Sit Supine to Sit Standby Assistance PT-Transfer Assessment Sit to and From Stand Sit to and from Stand Standby Assistance,1 Person Assistance,Use of Upper Extremities Equipment Transfer Assistive Device Gait Belt,Front Wheeled Walker Orthotic/Prosthetic Devices or Brace: No Transfers Transfer Destination Toilet Transfer Technique ambulated with FWW Transfer Ability Level of Assist Standby Assistance,1 Person Assistance,Use of Upper Extremities Comments Mobility Comments Betsy was in bed as PT arrived. She agreed to get up, completing bed mobility SBA and sitting EOB. She stood SBA with good attention to hop precautions and used FWW to ambulate 80 feet in the halls. On return to the room, she transferred to the toilet with heavy use of the grab bar. She agreed to call nursing when ready to get up. Gait Assessment Gait Gait Assistance Required: Standby Assistance,Contact Guard Assist Distance (Feet) 80 Able to Maintain Weight Bearing Status Yes During Gait Assistive Devices Assistive Device Gait Belt,Front Wheeled Walker Gait Deviations General Gait Pattern Decreased Stride Length, Decreased Feet Clearance,Step- to Gait Factors Limiting Gait Function Factors Limiting Gait Function Decreased Activity Tolerance, Decreased Strength,Limited Range of Motion,Pain Comments Gait Comments Pt pays good attention to all precautions. She often verbalizes her movement strategies as she moves. Good safety awareness all around. Stair Climbing Assessment Comments Stair Climbing Comments Not assessed today. If pt to discharge tomorrow, can review . PT-Balance Assessment Sitting Balance and Reactions Static Sitting Balance Ability Good Dynamic Sitting Balance Ability Good Standing Balance and Reactions Static Standing Balance Ability Good Dynamic Standing Balance Ability Fair Device Used FWW M5 PT-IP Objective Assessments Start: 03/31/22 12:10 Freq: NEEDED Status: Active Protocol: Document 04/02/22 10:25 AB (Rec: 04/02/22 13:20 AB [id number]) Orientation Orientation/Cognition Level of Alertness Alert Orientation Name,Place,Situation Language Function Ability No Deficits Noted Safety Awareness Decreased Safety Awareness Memory Description Short Term Impaired Gross Range of Motion Lower Extremity ROM Assessment Within Functional Limits Strength Lower Extremity Strength Assessment Right Impaired Hip 3+/5 Knee 4-/5 Coordination Assessment Gross Coordination Gross Coordination WNL Muscle Tone Muscle Tone WNL Yes M6 PT-IP Treatment Start: 03/31/22 12:10 Freq: NEEDED Status: Active Protocol: Document 04/05/22 15:00 AW (Rec: 04/05/22 16:05 AW [id number]) Physical Therapy Treatment Education Education Provided Precautions,Weight Bearing Status,Safety M7 PT-IP Assessment and Plan Start: 03/31/22 12:10 Freq: NEEDED Status: Active Protocol: Document 04/05/22 15:00 AW (Rec: 04/05/22 16:05 AW [id number]) PT Summary Assessment and Plan Summary Progress Towards Goals Progressing Toward Goals Assessment Summary Pt continues to require SBA to CGA for mobility with FWW. She progressed her ambulation distance to 80 feet. She walks slowly but with good attention to precautions. She will have caregiver assist up to 29/03 at home. HH PT will be needed to progress her strength and mobility independence. Goals Bed Mobility Goal Standby Assistance Transfer Goal Independent,Front Wheeled Walker Gait Goal Standby Assistance,Front Wheel Walker Gait Distance 150 Other Goals up/down 3 steps B rails SBA Days to Meet Goals 10 Frequency of Treatment Frequency Of Treatment Twice a Day Treatment Plan Physical Therapy Treatment Plan Bed Mobility Training,Transfer Training,Gait Training, Therapeutic Exercise,Balance Retraining,Post Op Education, Discharge Planning,Hot or Cold Pack,Neuromuscular Re-ed, Coordination Retraining,Manual Therapy Precautions Posterior Hip Precautions No Hip Flexion > 90 degrees,No Hip Internal Rotation,No Hip Adduction Weight Bearing Status Weight Bearing Status Weight Bear as Tolerated Allowed Weight Bearing Amount (enter % RLE WBAT or #) (%) Recommendations To Nursing Amount of Assist Needed 1 Person Assist Discharge Recommendations PT Discharge Recommendations Home with 29/03 Assist Available,Home Health Transportation Needs at Discharge Private Vehicle,Wheelchair/ Cabulance
[2022-04-05] MEDS: SODIUM CHLORIDE 0.9% FLUSH 10 ML IV (20:53)
--- NOTE | 2022-04-05 21:36 | PC.NURSE ---
Patient is alert and oriented. Breath sounds CTA with RA sat of 97%. HRR. BP trends high and was 150/65 on last vitals check; MD is adjusting meds. Denies nausea. BT present and reports BM earlier today. Denies dysuria, frequency or urgency with urination. Is able to move herself in bed and gets out of bed with walker and SBA. Aquacel dressing to right hip is CDI. 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 Has chronic lymphedema in left LE. Wearing bilateral calf SCD's. Denies pain other than some soreness in right hip but declines pain medication. Fall risk score is high and bed alarm is activated.
[2022-04-05] MEDS: HYDROMORPHONE 2 MG TABLET PO (23:46)
[2022-04-06 05:42] VITALS: BP 181/70; PULSE 62; RESP 17; TEMP 36.3; O2SAT 97
[2022-04-06] MEDS: ACETAMINOPHEN 325 MG TABLET 650 MG PO ×2 (06:06→11:37)
--- NOTE | 2022-04-06 07:18 | P.PN_ITS ---
Subjective Subjective Date Patient Seen: 04/06/22 Time Patient Seen: 07:18 Interval history: Patient is complaining of very mild right hip pain this morning. Her biggest concern is her elevated blood pressure. She is complaining of a headache this morning. She has a history of baseline neuropathy bilaterally, left worse than right. Exam Vital Signs (past 8 hours): - 04/06/22 05:42 Temperature 97.3 F L Pulse Rate 62 Respiratory Rate 17 Blood Pressure 181/70 H Pulse Oximetry 97 Oxygen Delivery Method Room Air Oxygen Flow Rate 0 Narrative Exam Narrative: Very pleasant 82-year-old female, frail appearing, resting comfortably in bed, no acute distress. Dressing is clean, dry, intact. Bilateral lower extremity: Motor functions are grossly intact, sensation is decreased right compared to left (patient notes this is her baseline), bilateral calves are soft and nontender to palpation. 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 Pulmonary nodule Scoliosis Surgical History History of lung biopsy (2016) History of partial pancreatectomy S/P total abdominal hysterectomy and bilateral salpingo-oophorectomy (~2013) Status post exploratory laparotomy Status post hip hemiarthroplasty (04/01/22) Status post splenectomy (2015) Social History household members: spouse Smoking Status: Former smoker alcohol intake: former Assessment & Plan Post-op Postoperative Procedures: Procedures Operation Date: 04/01/22 16:15 Actual Procedure Side Surgeon p Hip Hemiarthroplasty Right Minor Cox MD Postoperative day: 5 Postoperative status narrative: -stable status post right hip hemiarthroplasty -history of fallopian tube cancer with wide spread Mets -symptomatic hypertension Postoperative plan narrative: -mobilize with PT. Weightbearing as tolerated with front wheel walker. Maintain posterior hip precautions x6 weeks -patient will need 6 weeks of DVT prophylaxis, currently on Lovenox 40 mg -continue with multimodal pain management -patient is concerned about her elevated blood pressure, encouraged to work with primary Hospitalist team to make adjustments in medications as needed. -patient would like to be discharged home once she is deemed safe by the Hospitalist team and cleared by Physical therapy -orthopedics to sign off at this point. Please not hesitate to re-consult us with any questions or concerns. Quality VTE Deep Vein Thrombosis/Pulmonary Embolism Present on Admission: No
[2022-04-06 07:30] VITALS: BP 165/70; PULSE 68; RESP 19; TEMP 37.3; O2SAT 97
--- NOTE | 2022-04-06 08:09 | PM.DS.1 ---
History of Present Illness History of Present Illness Date Patient Seen: 04/06/22 Time Patient Seen: 08:09 Chief complaint: Increased right hip pain Narrative: Patient admitted after presenting for the second straight day with severe right-sided hip or groin pain. She is unable to walk or ambulate. She says she has both pain and some element of weakness and she can not really tell the difference. In her head this is some progression of a neuropathic kind of pain she is had for long time but obviously is tremendously worse. she denies any difficulty with bowel or bladder control. Says her sensation appears to be altered in her right lower extremity compared to left although has not completely numb but is different. This is also somewhat new but also somewhat a progression of what she describes as her neuropathy as well. ER evaluation done day before admission and day of admission ruled out DVT or bony issue. CT scan failed to identify any bony abnormality either fracture or related to her known recurrent fallopian tube cancer. MRI of the lumbar spine also failed to reveal an etiology for ongoing symptoms. She really failed to improve after being given IV steroids and modest doses of IV narcotics. 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 She is felt to have recurrence of her cancer based on rising CA 125 levels as well as evidence of additional findings on CT scan based imaging. Patient with known severe left greater than right lower extremity lymphedema thought secondary to her issues in her pelvis. Also has had chronic hip pain evaluated by Ortho locally not felt to be a candidate for intervention Discharge Providers Provider Date of admission: 03/31/22 11:46 Discharge Date: 04/06/22 Primary care physician: Chuy Gudino MD Consults: 03/31/22 00:45 Consult to Discharge Planning Routine Comment: Consult to Physical Therapy Evaluate & Treat Comment: Physician Instructions: Evaluate and Treat 03/31/22 11:59 Consult to Physician Routine Comment: Consulting Provider: Minor Cox Reason for consultation: Fx Femur Has provider been notified: Yes 04/01/22 22:27 Consult to Discharge Planning Routine Comment: Consult to Physical Therapy Evaluate & Treat Comment: Physician Instructions: post op RYAN protocol 04/02/22 14:12 Consult to Occupational Therapy Evaluate & Treat Comment: Physician Instructions: Evaluate and treat Discharge provider: Chuy Gudino MD Summary Hospital Course Discharge Diagnosis: 1. Pathologic subcapital fracture right proximal femur 2. Hypertension 3. Fallopian tube carcinoma 4. Ventral hernia 5. Severe protein calorie malnutrition Hospital Course: Patient admitted to the hospital as above. Imaging demonstrated the fracture of the right proximal femur. Orthopedic surgery was consulted and she was taken to surgery for a hemiarthroplasty. She successfully underwent surgery without any obvious complications and was up and about as expected postoperatively. She is struggled a bit with hypertension which is been an ongoing issue for her. Hospital formulary does not contain the usual medications that have been effective in controlling her hypertension and she has demonstrated sensitivity to medications such that it has been difficult. However with titration of medications she was some improved. She had no immediately dangerous super hypertensive episodes Patient's blood counts remained normal There appeared to be normal healing going on postoperatively. This is of a concern given the ongoing treatment with Avastin, in addition to her severe protein calorie malnutrition. The malnutrition is secondary to her ongoing chronic illness with the fallopian tube cancer and subsequent treatments etcetera. 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 Patient will continue with 6 weeks of DVT prophylaxis with Lovenox Patient will continue all of her usual medications at the usual doses at home with the exception of a slight increase in her carvedilol to 12.5 mg b.i.d. Patient will follow-up with orthopedic surgery as recommended Patient will follow-up with me in the primary care clinic on [facility] in approximately 3-4 weeks time Discharge Plan Discharge Plan Patient Disposition: Home Health Service Discharge orders & Medications Prescriptions: New polyethylene glycol 3350 17 gram Powder In Packet 17 g PO DAILY PRN (Reason: Constipation) Qty: 30 0RF hydromorphone 2 mg Tablet 2 mg PO Q3H PRN (Reason: Pain, Severe (7-10)) Qty: 30 0RF enoxaparin [Lovenox] 40 mg/0.4 mL Syringe 40 mg SUBCUT DAILY Qty: 12 0RF gabapentin 100 mg Capsule 200 mg PO BID Qty: 180 0RF Continued mupirocin 2 % ointment 1 applic topical BID Qty: 60 0RF Rx Instructions: on R hip for pain telmisartan 40 mg tablet 40 mg PO BID hydrochlorothiazide 12.5 mg capsule 12.5 mg PO DAILY Label Comments: no longer takes felodipine 5 mg tablet extended release 24 hr 5 mg PO BID carvedilol 12.5 mg tablet 12.5 mg PO QAM Rx Instructions: 1 tablet Qam / 1/2 tablet Qpm prochlorperazine maleate [Compazine] 10 mg tablet 10 mg PO Q6H PRN (Reason: Nausea) Label Comments: no longer takes acetaminophen [Tylenol] 325 mg capsule 650 mg PO QID PRN (Reason: pain) Qty: 60 0RF docusate sodium [Colace] 100 mg capsule 100 mg PO BID Qty: 30 0RF Label Comments: does not use at this time hydrocodone-acetaminophen 5-325 mg tablet 1 tab PO Q6H PRN (Reason: pain) Qty: 10 0RF Label Comments: does not take until yesterday in the ED Changed carvedilol 12.5 mg Tablet 12.5 mg PO QPM Qty: 30 0RF Discontinued sulfamethoxazole-trimethoprim [Bactrim DS] 800-160 mg tablet 1 tab PO Q12H Qty: 10 0RF Label Comments: no longer takes Follow up/Referrals: Chuy Gudino MD [Primary Care Provider] - 1 Month Minor Cox MD [Physician] - (10-14 days for postoperative visit) Diet/Activity/Treatments Diet: Diet as Tolerated Other treatments: Dressing/Wound care: -Keep Aquacell dressing in place until postoperative follow-up office visit. -Okay to shower. Keep wound out of direct water stream. No soaking or submerging until all the scabs fall off (approximately 6 weeks). -No lotions, ointments, or scar creams directly to the incision until the wound is healed (4-6 weeks), -Please call the office if dressing becomes wet, soiled, or saturated. Activities: -Maintain posterior hip precautions x6 weeks. -Weight-bearing as tolerated. Use front wheeled walker, and progress to cane when safe. -Continue with home exercises as directed by your physical therapist. -Elevate ?toes above the nose if you have significant swelling in your lower leg. (A wedge pillow is easiest.) -Ice your incision as needed for pain/inflammation/swelling. Protect your skin with a folded pillowcase. Follow-up: -Follow-up with your surgeon or PA in the office in 10-14 days after surgery. -Follow-up with your surgeon 6 weeks postoperatively. Call the office if you have chest pain, shortness of breath, significant swelling that will not resolve with elevating, fever over 101?, significantly worsening pain, or are concerned you might need to go to the Emergency Room. [facility]: [phone] Skin/Wound/Dressing Care Report to your healthcare provider any signs of infection, such as:: chills, fever, night sweats, unusual drainage and unusual redness Visit Report/Discharge Packet Instructions: DI for Hip Replacement Stand Alone Forms: Surgery Discharge Discharge Data Primary Care Provider: Chuy Gudino Quality VTE Deep Vein Thrombosis/Pulmonary Embolism Present on Admission: No
[2022-04-06] MEDS: DOCUSATE 100 MG CAPSULE PO (09:49)
[2022-04-06] MEDS: LOSARTAN 50 MG TABLET PO (09:49)
[2022-04-06] MEDS: carvediloL 12.5 MG TABLET PO (09:49)
[2022-04-06] MEDS: CELECOXIB 200 MG CAPSULE PO (09:49)
[2022-04-06] MEDS: AMLODIPINE 5 MG TABLET 10 MG PO (09:49)
[2022-04-06] MEDS: GABAPENTIN 100 MG CAPSULE 200 MG PO (09:49)
[2022-04-06] MEDS: ENOXAPARIN 40 MG/0.4 ML SYRINGE SUBCUT (09:50)
[2022-04-06] MEDS: SODIUM CHLORIDE 0.9% FLUSH 10 ML IV (09:50)
--- NOTE | 2022-04-06 10:36 | PT.IPTN ---
Current Diagnoses Pathological fracture in neoplastic disease, right femur, initial encounter for fracture (03/31/22) Surgery Performed Operation Date: 04/01/22 16:15 Actual Procedures p Hip Hemiarthroplasty(Right) - Minor Cox MD Physical Therapy Treatment Note M2 PT-IP Current Condition Start: 03/31/22 12:10 Freq: NEEDED Status: Discharge Protocol: Document 04/06/22 10:35 SP (Rec: 04/06/22 16:46 SP [id number]) Physical Therapy Current Condition Current Condition Evaluation Date 04/02/22 Treatment Diagnosis R fem neck fx s/p hemiarthroplasty; CA w/ lung mets; difficulty in walking Onset Date 03/31/22 M3 PT-IP Subjective Start: 03/31/22 12:10 Freq: NEEDED Status: Discharge Protocol: Document 04/06/22 10:35 SP (Rec: 04/06/22 16:46 SP [id number]) Subjective Physical Therapy Visit Type Type Treatment Note Visit Start Time 10:28 Visit Stop Time 10:36 Total Visit Minutes 8 Notes ERIC Morse provided CGA-SBA to pt throughout tx while being directly supervised by CHIDI Cabrera. Vitals taken during tx: supine: BP 171/72 HR 73 SaO2 99% on RA post mobility: 179/79 HR 69 SaO2 99% Number of [facility]NAGER FACILITY Visits 1 Physical Therapy Visit Comments Patient Comments agreeable to do PT Patient Goals Return home with 24/7 caregivers to assist her and her . M4 PT-IP Mobility and Gait Start: 03/31/22 12:10 Freq: NEEDED Status: Discharge Protocol: Document 04/06/22 10:35 SP (Rec: 04/06/22 16:46 SP [id number]) PT-Bed Mobility Assessment Supine to Sit Supine to Sit Standby Assistance Sit to Supine Sit to Supine Standby Assistance Scooting Scooting to Edge of Bed Standby Assistance PT-Transfer Assessment Sit to and From Stand Sit to and from Stand Standby Assistance,Contact Guard Assistance,1 Person Assistance,Use of Upper Extremities Equipment Transfer Assistive Device Gait Belt,Front Wheeled Walker Orthotic/Prosthetic Devices or Brace: No Transfers Transfer Destination Bed,Toilet Transfer Technique ambulated with FWW Transfer Ability Level of Assist Standby Assistance,Contact Guard Assistance,1 Person Assistance,Use of Upper Extremities Comments Mobility Comments Pt recalled 3/3 precautions and maintained throughout tx. Elevated supine>sit, scoot to EOB SBA. Sit>stand CGA w/ FWW, cued for pushing from bed. Gait L side bed>door>bathroom approx 35 ft w/ FWW CGA initally safety assessment CG- SBA. Cued full pivot and back up to toilet with FWW, pt ableto complete clothing mgt and safety use of grab bar slow descent to toilet CGA. Pt able to void and perform self pericare in sitting. Sit> stand CGA w/ FWW and use of grab bar, self pant mgt. Gait further to sink approx 10 ft w / FWW CGA-SBA, good FWW positioning facing sink and no support required while washing hands, no LOB/ deviations. Gait back to bed w / FWW CG- SBA, cued side step higher to rail HOB and reach back slow descent SBA and RLE positioned little in front for comfort. Completed sit<supine SBA. Pt is ok to return home with 29/03 caregiver assist available when medically cleared, recommending HHPT to progress strength and functional independence in mobility. Pt declined review of post op exercises and stair mgt felt confident due to already completed with prior PT. MANAGER FACILITY ed for safety assessment with support requiring during stair mgt compared to 2 days ago and pt declined. Pt had call light and all needs in reach with bed alarmed before left. Gait Assessment Gait Gait Assistance Required: Standby Assistance,Contact Guard Assist Distance (Feet) 35 Able to Maintain Weight Bearing Status Yes During Gait Assistive Devices Assistive Device Gait Belt,Front Wheeled Walker Orthotic/Prosthetic Devices or Brace: No Gait Deviations General Gait Pattern Decreased Stride Length, Decreased Feet Clearance,Step- to Gait Factors Limiting Gait Function Factors Limiting Gait Function Decreased Activity Tolerance, Decreased Strength,Limited Range of Motion,Pain Comments Gait Comments Pt pays good attention to all precautions. She often verbalizes her movement strategies as she moves. Good safety awareness all around. Stair Climbing Assessment Comments Stair Climbing Comments Pt declined further assessment with stair mgt review since last performed 2 days ago. PT-Balance Assessment Sitting Balance and Reactions Static Sitting Balance Ability Normal Dynamic Sitting Balance Ability Normal Standing Balance and Reactions Static Standing Balance Ability Good Dynamic Standing Balance Ability Fair Device Used FWW M5 PT-IP Objective Assessments Start: 03/31/22 12:10 Freq: NEEDED Status: Discharge Protocol: Document 04/02/22 10:25 AB (Rec: 04/02/22 13:20 AB [id number]) Orientation Orientation/Cognition Level of Alertness Alert Orientation Name,Place,Situation Language Function Ability No Deficits Noted Safety Awareness Decreased Safety Awareness Memory Description Short Term Impaired Gross Range of Motion Lower Extremity ROM Assessment Within Functional Limits Strength Lower Extremity Strength Assessment Right Impaired Hip 3+/5 Knee 4-/5 Coordination Assessment Gross Coordination Gross Coordination WNL Muscle Tone Muscle Tone WNL Yes M6 PT-IP Treatment Start: 03/31/22 12:10 Freq: NEEDED Status: Discharge Protocol: Document 04/06/22 10:35 SP (Rec: 04/06/22 16:46 SP [id number]) Physical Therapy Treatment Education Education Provided Precautions,Weight Bearing Status,Safety M7 PT-IP Assessment and Plan Start: 03/31/22 12:10 Freq: NEEDED Status: Discharge Protocol: Document 04/06/22 10:35 SP (Rec: 04/06/22 16:46 SP [id number]) PT Summary Assessment and Plan Potential Rehabilitation Potential Good Status of Condition at Evaluation Evolving Summary Impairments Pain,ROM,Strength,Balance, Coordination,Sensation,Tone, Cognition,Bed Mobility, Transfers,Gait,Activity Tolerance Progress Towards Goals Progressing Toward Goals,Slow Progress due to Activity Tolerance Assessment Summary Pt continues to require SBA to CGA for mobility with FWW. She walks slowly but with good attention to precautions. She will have caregiver assist up to 29/03 at home. PT will be needed to progress her strength and mobility independence. Goals Bed Mobility Goal Standby Assistance Transfer Goal Independent,Front Wheeled Walker Gait Goal Standby Assistance,Front Wheel Walker Gait Distance 150 Other Goals up/down 3 steps B rails SBA Days to Meet Goals 10 Frequency of Treatment Frequency Of Treatment Twice a Day Treatment Plan Physical Therapy Treatment Plan Bed Mobility Training,Transfer Training,Gait Training, Therapeutic Exercise,Balance Retraining,Post Op Education, Discharge Planning,Hot or Cold Pack,Neuromuscular Re-ed, Coordination Retraining,Manual Therapy Other Recommendations and Next Treatment post op ex, gait w/ FWW, stair Focus mgt Precautions Posterior Hip Precautions No Hip Flexion > 90 degrees,No Hip Internal Rotation,No Hip Adduction Weight Bearing Status Weight Bearing Status Weight Bear as Tolerated Allowed Weight Bearing Amount (enter % RLE WBAT or #) (%) Recommendations To Nursing Amount of Assist Needed Standby Assistance,1 Person Assist Discharge Recommendations PT Discharge Recommendations Home with 29/03 Assist Available,Home Health Transportation Needs at Discharge Private Vehicle,Wheelchair/ Cabulance
--- NOTE | 2022-04-06 11:12 | CM.DPC ---
DCP Cont: DCP spoke with [facility] this morning to update them on pt discharge today. Yovani @ [place] aware and will reach out to the patient directly. DCP contacted [employer] to update them on pt discharge today. Chelsea verbalized thankfulness for the call and will reach out to the patient today. DCP to fax over d/c summary to [facility] Alfredo today. Christa Skinner RN/ROSELIA
--- NOTE | 2022-04-06 11:29 | PC.NURSE ---
Assess- Patient is getting up with one person assist and walker. She is working with physical therapy now. Dressing to r.hip is [facility], [facility] wnl. She will be discharging home at 1300 as ride will he here then. Personal items retrieved from the safe, she is sitting up in the chair and tylenol given.
== END 2022-04-06 13:17 | disposition home health service (06) | DRG 521 ==
LOC: ED 19:33 → AC 23:57
PROVIDERS: Orthopaedic Surgery; Physician Assistant; Admitting Provider Internal Medicine; Emergency Provider Emergency Medicine; Family Provider Internal Medicine; PCP Internal Medicine; Referring Provider Emergency Medicine; Visit Provider Internal Medicine
PROC: 0SRR0JZ Replacement of Right Hip Joint, Femoral Surface with Synthetic Substitute, Open Approach (ICD-10-PCS; CPT 27125; principal; 2022-04-01 16:15)
DX: M84.651A Pathological fracture in other disease, right femur, initial encounter for fracture (principal); E43 Unspecified severe protein-calorie malnutrition; C78.2 Secondary malignant neoplasm of pleura; Z68.1 Body mass index [BMI] 19.9 or less, adult; I10 Essential (primary) hypertension; C57.00 Malignant neoplasm of unspecified fallopian tube; Z20.822 Contact with and (suspected) exposure to COVID-19; Z87.891 Personal history of nicotine dependence
CPT/HCPCS: 36415; 72158; 72170; 72197; 73502; 74177; 80048; 80053; 81001; 81003; 81015; 83690; 83735; 85014; 85018; 85025; 85651; 86140; 87635; 93970; 96361; 96374; 96375; 96376; 97116; 97162; 97530; 97535; 99223; 99232; 99238; 99284; C9803; G0378; A9579; J0171; J0690; J1100; J1170; J1650; J2270; J2405; J2704; J3010; Q9967

== ENCOUNTER 2022-04-12 12:52 | Emergency (ER) | payer MEDICARE, BC, SELFPAY ==
[2022-04-12 12:32] VITALS: BP 175/79; PULSE 72; RESP 16; TEMP 36.8; O2SAT 96; BMI 17.9
--- NOTE | 2022-04-12 12:36 | DI.RAD.S_ITS ---
PROCEDURE: XR HIP W PEL IF DONE RT 2V INDICATIONS: recent R hip surg, felt pop today TECHNIQUE: Three views of the pelvis and right hip were submitted for review. COMPARISON: [facility] [place], CR, XR LUMBAR SPINE WITH OLBIQUES PLUS FLEXION EXTENSION, 01/20/2021, 15:27. [facility], CR, XR PELVIS 1-2V, 04/01/2022, 19:47. [facility], CR, XR HIP W PEL IF DONE RT 2V, 03/29/2022, 11:52. FINDINGS: Bones: Patient is status post right hip arthroplasty, with hardware components in expected positions and unchanged in alignment. The hip joint appears congruent. The visualized bony structures appear intact. Mild degenerative changes of the left hip with surgical anchors noted within the greater tuberosity. Severe scoliosis of the lumbar spine unchanged. Postsurgical changes of the lumbosacral junction incompletely evaluated. Soft tissues: Overlying postoperative changes are noted. No suspicious soft tissue densities. IMPRESSION: Postsurgical changes of right total hip arthroplasty in unchanged alignment without evidence of complication. Dictated by: Michael Novak D.O. on 04/12/2022 at 13:00 Approved by: Michael Novak D.O. on 04/12/2022 at 13:03
[2022-04-12 15:35] VITALS: BP 170/75; PULSE 78; RESP 18; O2SAT 99
--- NOTE | 2022-04-12 16:38 | ED.LOWEXIN ---
HPI - Extremity Injury (Lower) <Home Luna MD - Last Filed: 04/12/22 16:56> General Chief Complaint: Extremity Injury, Lower Stated Complaint: R hip px Time Seen by Provider: 04/12/22 16:38 Source: patient and EMS Mode of arrival: EMS History of Present Illness HPI Narrative: This 82-year-old patient had a total hip replacement on the right 11 days ago. She has been doing very well and not requiring any pain medication and today while walking on level ground she suddenly felt a loud ?pop? that caused severe pain and she is no longer able to bear weight without full assistance. She denies any trip or stumble and she did not fall to the ground. She has been doing extremely well otherwise. Additional medical problems include pulmonary nodule, essential hypertension, carcinoma of the fallopian tube Related Data Home Medications Medication Instructions Recorded Confirmed telmisartan 40 mg tablet 40 mg PO BID 10/09/20 03/31/22 carvedilol 12.5 mg tablet 12.5 mg PO QAM 04/21/21 03/31/22 felodipine 5 mg tablet,extended 5 mg PO BID 04/21/21 03/31/22 release 24 hr hydrochlorothiazide 12.5 mg capsule 12.5 mg PO DAILY 04/21/21 04/01/22 prochlorperazine maleate 10 mg 10 mg PO Q6H PRN Nausea 05/26/21 03/31/22 tablet (Compazine) Previous Rx's Medication Instructions Recorded acetaminophen 325 mg capsule 650 mg PO QID PRN pain #60 caps 05/22/21 (Tylenol) docusate sodium 100 mg capsule 100 mg PO BID #30 caps 05/22/21 (Colace) mupirocin 2 % topical ointment 1 applic topical BID #60 grams 12/17/21 hydrocodone 5 mg-acetaminophen 325 1 tab PO Q6H PRN pain #10 tabs 03/29/22 mg tablet carvedilol 12.5 mg tablet 12.5 mg PO QPM #30 tabs 04/05/22 enoxaparin 40 mg/0.4 mL 40 mg (0.4 mL) SUBCUT DAILY #12 mL 04/05/22 subcutaneous syringe (Lovenox) gabapentin 100 mg capsule 200 mg PO BID #180 caps 04/05/22 hydromorphone 2 mg tablet 2 mg PO Q3H PRN Pain, Severe 04/05/22 (7-10) #30 tabs polyethylene glycol 3350 17 gram 17 g PO DAILY PRN Constipation #30 04/05/22 oral powder packet ea Allergies Allergy/AdvReac Type Severity Reaction Status Date / Time latex [LATEX] Allergy Intermediate RASH Verified 04/12/22 12:35 amoxicillin Allergy Mild ITCHING/CALIN Verified 04/12/22 12:35 H azithromycin [AZITHROMYCIN] Allergy Mild HIVES Verified 04/12/22 12:35 Penicillins [PENICILLINS] Allergy Mild RASH/ITCHIN Verified 04/12/22 12:35 G hydralazine AdvReac Severe hives Verified 04/12/22 12:35 minoxidil AdvReac Intermediate severe leg Verified 04/12/22 12:35 edema and symptomatic hypotension spironolactone AdvReac Intermediate hyperkalemi Verified 04/12/22 12:35 a HENRY Inhibitors AdvReac Mild COUGH Verified 04/12/22 12:35 [HENRY INHIBITORS] Review of Systems <Home Luna MD - Last Filed: 04/12/22 16:56> Review of Systems Narrative: Review of systems is negative other than as noted Patient History <Home Luna MD - Last Filed: 04/12/22 16:56> Medical History Arthritis Essential hypertension 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 Pulmonary nodule Scoliosis Surgical History History of lung biopsy (2016) History of partial pancreatectomy S/P total abdominal hysterectomy and bilateral salpingo-oophorectomy (~2013) Status post exploratory laparotomy Status post hip hemiarthroplasty (04/01/22) Status post splenectomy (2015) Social History household members: spouse Smoking Status: Former smoker alcohol intake: former Smoking Status: Former smoker alcohol intake frequency: 0-2 drinks per day Substance Use Type: does not use Exam <Home Luna MD - Last Filed: 04/12/22 16:56> Narrative Exam Narrative: GENERAL: Alert, cooperative and in no distress. HEAD: Atraumatic. Normocephalic. EYES: Sclera are clear without icterus. Extraocular movements are full. ENT: No rhinorrhea NECK: No visible abnormality RESPIRATORY: No respiratory distress GASTROINTESTINAL: Nondistended EXTREMITIES: No obvious trauma. Patient can bear weight and take a couple of steps with full assistance from 2 people. Minimal ambulation is still very painful. NEURO: Nonfocal, normal speech SKIN: No rash or erythema of visible areas PSYCH: Normally oriented. Normal range of affect. Appropriate behavior Initial Vital Signs Initial Vital Signs: Vital Signs Temperature 98.2 F 04/12/22 12:32 Pulse Rate 72 04/12/22 12:32 Respiratory Rate 16 04/12/22 12:32 Blood Pressure 175/79 H 04/12/22 12:32 Pulse Oximetry 96 04/12/22 12:32 Oxygen Delivery Method 04/12/22 12:32 <Isabela Calderon DO - Last Filed: 04/12/22 23:47> Initial Vital Signs Initial Vital Signs: Vital Signs Temperature 98.2 F 04/12/22 12:32 Pulse Rate 72 04/12/22 12:32 Respiratory Rate 16 04/12/22 12:32 Blood Pressure 175/79 H 04/12/22 12:32 Pulse Oximetry 96 04/12/22 12:32 Oxygen Delivery Method 04/12/22 12:32 Course <Home Luna MD - Last Filed: 04/12/22 16:56> Orders Ordered: ED Orders 04/12/22 16:53 CT hip RT wo con Stat Discontinued Medications Acetaminophen (Acetaminophen 325 Mg Tablet) 650 mg PO NOW ONE Stop: 04/12/22 16:52 Last Admin: 04/12/22 17:25 Dose: 650 mg Documented By: RICHIE Consultations Consultation #1: Spoke with Dawn [facility] from [facility]. She recommends CT of the right hip to exclude occult fracture or periprosthetic fracture. Vital Signs Vital signs: Vital Signs - 8 hr 04/12/22 16:52 04/12/22 19:24 Temperature 98.6 F Pulse Rate 80 70 Respiratory Rate 18 18 Blood Pressure 170/64 H 143/69 H Pulse Oximetry 98 98 Oxygen Delivery Method Room Air <Isabela Calderon DO - Last Filed: 04/12/22 23:47> Orders Ordered: ED Orders 04/12/22 16:53 CT hip RT wo con Stat Discontinued Medications Acetaminophen (Acetaminophen 325 Mg Tablet) 650 mg PO NOW ONE Stop: 04/12/22 16:52 Last Admin: 04/12/22 17:25 Dose: 650 mg Documented By: RICHIE Vital Signs Vital signs: Vital Signs - 8 hr 04/12/22 16:52 04/12/22 19:24 Temperature 98.6 F Pulse Rate 80 70 Respiratory Rate 18 18 Blood Pressure 170/64 H 143/69 H Pulse Oximetry 98 98 Oxygen Delivery Method Room Air MDM - Extremity Injury (Lower) <Home Luna MD - Last Filed: 04/12/22 16:56> Imaging Data Extremity x-ray #1: Radiologist's Impression: IMPRESSION:? ? Postsurgical changes of right total hip arthroplasty in unchanged alignment without evidence of complication. ? Dictated by: Michael Novak D.O. on 04/12/2022 at 13:00 ? ? Approved by: Michael Novak D.O. on 04/12/2022 at 13:03 ? <Isabela Calderon DO - Last Filed: 04/12/22 23:47> Imaging Data CT pelvis: Radiologist's Impression: Postsurgical changes of right hip arthroplasty without evidence of acute osseous abnormality or complication MDM Narrative Medical decision making narrative: Patient signed out to me by Dr. Luna. I have seen evaluated patient myself. She is quite pleasant. Says that she was walking when she heard a pop overall she was doing very well postoperatively. She was in quite a bit of pain some likely 24 hour care at. She has a walker and a wheelchair. She does not want any medication here in the ED. She has Dilaudid at home. CT and x-ray are both negative. Discharge Plan Departure Patient Disposition: Home Clinical Impression: Acute hip pain Instructions: DI for Hip Pain Activity Restrictions/Additional Instructions: *You have been diagnosed with right hip pain *What to do: At this time both her x-ray and her CT are negative. I recommend talking with Dr. Cox tomorrow. Please ice in take it easy. Use wheelchair and walker as needed *Continue to take medications as directed Please take dilaudid tonight so you can get some sleep You may also take Tylenol 650 mg every 4 hours if needed for [id number] *Follow up with your primary care provider in 2-3 days or call [phone] Cox tomorrow *Return to ER if you should have inability to walk redness fever or any new, worsening or concerning symptoms Prescriptions: No Action mupirocin 2 % ointment 1 applic topical BID Qty: 60 0RF Rx Instructions: on R hip for pain telmisartan 40 mg tablet 40 mg PO BID hydrochlorothiazide 12.5 mg capsule 12.5 mg PO DAILY Label Comments: no longer takes felodipine 5 mg tablet extended release 24 hr 5 mg PO BID carvedilol 12.5 mg tablet 12.5 mg PO QAM Rx Instructions: 1 tablet Qam / 1/2 tablet Qpm prochlorperazine maleate [Compazine] 10 mg tablet 10 mg PO Q6H PRN (Reason: Nausea) Label Comments: no longer takes acetaminophen [Tylenol] 325 mg capsule 650 mg PO QID PRN (Reason: pain) Qty: 60 0RF docusate sodium [Colace] 100 mg capsule 100 mg PO BID Qty: 30 0RF Label Comments: does not use at this time hydrocodone-acetaminophen 5-325 mg tablet 1 tab PO Q6H PRN (Reason: pain) Qty: 10 0RF Label Comments: does not take until yesterday in the ED polyethylene glycol 3350 17 gram Powder In Packet 17 g PO DAILY PRN (Reason: Constipation) Qty: 30 0RF hydromorphone 2 mg Tablet 2 mg PO Q3H PRN (Reason: Pain, Severe (7-10)) Qty: 30 0RF enoxaparin [Lovenox] 40 mg/0.4 mL Syringe 40 mg SUBCUT DAILY Qty: 12 0RF gabapentin 100 mg Capsule 200 mg PO BID Qty: 180 0RF carvedilol 12.5 mg Tablet 12.5 mg PO QPM Qty: 30 0RF Referrals: Chuy Gudino MD [Primary Care Provider] - Visit Report Forms: Patient Portal/API
[2022-04-12 16:52] VITALS: BP 170/64; PULSE 80; RESP 18; O2SAT 98
--- NOTE | 2022-04-12 16:53 | DI.CT.S_ITS ---
PROCEDURE: CT HIP RIGHT WITHOUT CON INDICATIONS: pain TECHNIQUE: Noncontrast 3 mm axial sections acquired through the bony pelvis. Additional 3 mm axial sections acquired through the symptomatic hip joint, with coronal and sagittal reformats. COMPARISON: [facility], CT, CT ABDOMEN PELVIS W CON, 03/29/2022, 11:37. [facility], CR, XR PELVIS 1-2V, 04/01/2022, 19:47. [facility], CR, XR HIP W PEL IF DONE RT 2V, 04/12/2022, 13:42. FINDINGS: Image quality: Examination is somewhat limited given hardware artifact adjacent to the right hip prosthesis. Bones: Patient is status post right total hip arthroplasty. Hardware appears appropriately aligned and intact. No perihardware fracture. Stable calcification adjacent to the lesser trochanter likely representing small enthesophyte formation. Enthesophyte formation of the hamstring insertions are also noted. Postsurgical changes of the left hip greater trochanter with 2 anchors noted. Degenerative changes of the pubic symphysis and sacroiliac joints. Severe scoliotic curvature of the lumbar spine incompletely evaluated. Postsurgical changes of the lumbosacral junction are also incompletely evaluated. Other osseous structures are intact without evidence of an acute fracture. Soft tissues: Stable appearance of the lower abdomen/pelvis without evidence of an acute abnormality. Stable right renal cyst and pelviectasis. Status post hysterectomy. Soft tissues of the hips are unremarkable. IMPRESSION: Postsurgical changes of right hip arthroplasty without evidence of an acute osseous abnormality or complication. Dictated by: Michael Novak D.O. on 04/12/2022 at 16:41 Approved by: Michael Novak D.O. on 04/12/2022 at 16:46
[2022-04-12] MEDS: ACETAMINOPHEN 325 MG TABLET 650 MG PO (17:25)
[2022-04-12 19:24] VITALS: BP 143/69; PULSE 70; RESP 18; TEMP 37; O2SAT 98
== END 2022-04-12 19:24 | disposition home or self-care (01) ==
PROVIDERS: Emergency Provider Emergency Medicine; Family Provider Internal Medicine; PCP Internal Medicine
DX: T84.84XA Pain due to internal orthopedic prosthetic devices, implants and grafts, initial encounter (principal)
CPT/HCPCS: 73502; 73700; 99283

== ENCOUNTER → 2022-04-22 15:54 | Outpatient (CLI) | payer MEDICARE, BC, SELFPAY ==
[2022-03-31 00:46] VITALS: BMI 17.7
--- NOTE | 2022-04-22 | DI.US.S_ITS ---
PROCEDURE: US PERIPH VENOUS LOW EXTREM RT INDICATIONS: RULE OUT DVT RIGHT LEG TECHNIQUE: Real-time imaging, as well as color and pulse Doppler interrogation, were performed of the lower extremity deep veins from the inguinal ligament to the popliteal fossa. COMPARISON: None. FINDINGS: The common femoral, femoral and popliteal veins are normally compressible, and free of intraluminal thrombus. Color and pulse Doppler demonstrate normal phasic intraluminal flow. There is normal augmentation response to distal compression maneuver. IMPRESSION: No deep vein thrombosis of the right lower extremity. Dictated by: Kyleigh Otero M.D. on 04/23/2022 at 13:48 Approved by: Kyleigh Otero M.D. on 04/23/2022 at 13:48
== END ==
PROVIDERS: Family Provider Internal Medicine; PCP Internal Medicine; Referring Provider Orthopaedic Surgery; Visit Provider Physician Assistant Medical
DX: M79.89 Other specified soft tissue disorders (principal)
CPT/HCPCS: 93971

== ENCOUNTER → 2022-04-30 14:00 | Outpatient (CLI) | payer MEDICARE, BC, SELFPAY ==
[2022-03-31 00:46] VITALS: BMI 17.7
[2022-04-30 15:27] LABS: BUN Creatinine Ratio 26.8 (6-22); Blood Urea Nitrogen 26 mg/dL (7-17); Carbon Dioxide 26 mmol/L (22-32); Chloride 103 mmol/L (98-107); Estimated Glomerular Filt Rate 59 mL/min (>60); Glucose 88 mg/dL (80-110); HEMOLYSIS < 15 (0-50); Potassium 5.2 mmol/L (3.4-5.1); Sodium 137 mmol/L (137-145)
== END ==
PROVIDERS: Family Provider Internal Medicine; PCP Internal Medicine; Referring Provider Internal Medicine; Visit Provider Internal Medicine
DX: I10 Essential (primary) hypertension (principal)
CPT/HCPCS: 36415; 80048

== ENCOUNTER → 2022-05-14 13:11 | Outpatient (CLI) | payer MEDICARE, BC, SELFPAY ==
[2022-05-14 14:32] LABS: Add Manual Diff / Slide Review NO; Basophils Absolute Auto 100 /uL (0-100); Basophils Percent Auto 0.8 % (0-2); Eosinophils Absolute Auto 200 /uL (0-450); Eosinophils Percent Auto 2.7 % (2-4); Hematocrit 32.4 % (36-46); Hemoglobin 10.6 g/dL (12.0-16.0); Lymphocytes Absolute Auto 1000 /uL (1100-4500); Lymphocytes Percent Auto 13.2 % (25-40); Mean Corpuscular HGB Conc 32.6 % (30-36); Mean Corpuscular Hemoglobin 31.8 PG (26-34); Mean Corpuscular Volume 97.6 fL (80-100); Monocytes Absolute Auto 800 /uL (0-900); Monocytes Percent Auto 11.4 % (3-14); Neutrophils Absolute Auto 5300 /uL (1500-7000); Neutrophils Percent Auto 71.9 % (50-75); Platelet Count 258 X10^3/uL (150-400); Red Blood Cell Count 3.31 X10^6/uL (4.0-5.2); Red Cell Distribution Width 15.2 % (11.6-14.8); White Blood Cell Count 7.4 X10^3/uL (4.5-11.0)
[2022-05-14 14:37] LABS: Alanine Aminotransferase 10 IU/L (<35); Albumin 4.2 g/dL (3.5-5.0); Albumin Globulin Ratio 1.1 (1.0-2.8); Alkaline Phosphatase 86 U/L (38-126); Aspartate Aminotransferase 25 IU/L (14-36); Bilirubin Total 0.3 mg/dL (0.2-1.3); Blood Urea Nitrogen 33 mg/dL (7-17); Calcium 8.9 mg/dL (8.4-10.2); Carbon Dioxide 27 mmol/L (22-32); Chloride 102 mmol/L (98-107); Estimated Glomerular Filt Rate 51 mL/min (>60); Globulin 3.7 g/dL (1.7-4.1); Glucose 91 mg/dL (80-110); HEMOLYSIS < 15 (0-50); Sodium 138 mmol/L (137-145); Total Protein 7.9 g/dL (6.3-8.2)
== END ==
PROVIDERS: Family Provider Internal Medicine; PCP Internal Medicine; Referring Provider Physician Assistant Medical; Visit Provider Physician Assistant Medical
DX: C57.00 Malignant neoplasm of unspecified fallopian tube (principal)
CPT/HCPCS: 36415; 80053; 85025

== ENCOUNTER → 2022-05-21 14:17 | Outpatient (CLI) | payer MEDICARE, BC, SELFPAY ==
[2022-05-21 14:50] LABS: Add Manual Diff / Slide Review NO; Basophils Absolute Auto 100 /uL (0-100); Eosinophils Absolute Auto 200 /uL (0-450); Eosinophils Percent Auto 3.7 % (2-4); Hematocrit 29.7 % (36-46); Lymphocytes Absolute Auto 800 /uL (1100-4500); Lymphocytes Percent Auto 14.5 % (25-40); Mean Corpuscular HGB Conc 33.5 % (30-36); Mean Corpuscular Volume 95.6 fL (80-100); Monocytes Absolute Auto 400 /uL (0-900); Monocytes Percent Auto 6.6 % (3-14); Neutrophils Absolute Auto 4000 /uL (1500-7000); Neutrophils Percent Auto 74.2 % (50-75); Platelet Count 217 X10^3/uL (150-400); Red Blood Cell Count 3.11 X10^6/uL (4.0-5.2); Red Cell Distribution Width 14.5 % (11.6-14.8); White Blood Cell Count 5.3 X10^3/uL (4.5-11.0)
[2022-05-21 15:03] LABS: Alanine Aminotransferase 11 IU/L (<35); Albumin Globulin Ratio 1.1 (1.0-2.8); Alkaline Phosphatase 78 U/L (38-126); Aspartate Aminotransferase 25 IU/L (14-36); Bilirubin Total 0.3 mg/dL (0.2-1.3); Blood Urea Nitrogen 36 mg/dL (7-17); Calcium 8.6 mg/dL (8.4-10.2); Carbon Dioxide 25 mmol/L (22-32); Chloride 102 mmol/L (98-107); Estimated Glomerular Filt Rate 55 mL/min (>60); Globulin 3.5 g/dL (1.7-4.1); Glucose 115 mg/dL (80-110); HEMOLYSIS 20 (0-50); Potassium 4.9 mmol/L (3.4-5.1); Sodium 138 mmol/L (137-145); Total Protein 7.5 g/dL (6.3-8.2)
== END ==
PROVIDERS: Family Provider Internal Medicine; PCP Internal Medicine; Referring Provider Physician Assistant Medical; Visit Provider Physician Assistant Medical
DX: C57.00 Malignant neoplasm of unspecified fallopian tube (principal)
CPT/HCPCS: 36415; 80053; 85025

== ENCOUNTER → 2022-06-04 15:16 | Outpatient (CLI) | payer MEDICARE, BC, SELFPAY ==
[2022-06-04 16:30] LABS: Add Manual Diff / Slide Review NO; Basophils Absolute Auto 0 /uL (0-100); Basophils Percent Auto 0.5 % (0-2); Eosinophils Absolute Auto 0 /uL (0-450); Hematocrit 28.1 % (36-46); Hemoglobin 9.2 g/dL (12.0-16.0); Lymphocytes Absolute Auto 400 /uL (1100-4500); Mean Corpuscular HGB Conc 32.7 % (30-36); Mean Corpuscular Hemoglobin 31.1 PG (26-34); Mean Corpuscular Volume 95.1 fL (80-100); Monocytes Absolute Auto 200 /uL (0-900); Monocytes Percent Auto 2.7 % (3-14); Neutrophils Absolute Auto 5700 /uL (1500-7000); Neutrophils Percent Auto 90.8 % (50-75); Platelet Count 336 X10^3/uL (150-400); Red Blood Cell Count 2.95 X10^6/uL (4.0-5.2); Red Cell Distribution Width 15.5 % (11.6-14.8); White Blood Cell Count 6.3 X10^3/uL (4.5-11.0)
[2022-06-04 16:42] LABS: Alanine Aminotransferase 10 IU/L (<35); Albumin 3.8 g/dL (3.5-5.0); Albumin Globulin Ratio 1.1 (1.0-2.8); Alkaline Phosphatase 82 U/L (38-126); Aspartate Aminotransferase 26 IU/L (14-36); Bilirubin Total 0.3 mg/dL (0.2-1.3); Blood Urea Nitrogen 31 mg/dL (7-17); Calcium 8.4 mg/dL (8.4-10.2); Carbon Dioxide 20 mmol/L (22-32); Chloride 104 mmol/L (98-107); Estimated Glomerular Filt Rate 57 mL/min (>60); Globulin 3.6 g/dL (1.7-4.1); Glucose 116 mg/dL (80-110); HEMOLYSIS < 15 (0-50); Potassium 4.8 mmol/L (3.4-5.1); Sodium 136 mmol/L (137-145); Total Protein 7.4 g/dL (6.3-8.2)
== END ==
PROVIDERS: Family Provider Internal Medicine; PCP Internal Medicine; Referring Provider Obstetrics & Gynecology; Visit Provider Obstetrics & Gynecology
DX: C57.00 Malignant neoplasm of unspecified fallopian tube (principal)
CPT/HCPCS: 36415; 80053; 85025

== ENCOUNTER → 2022-06-10 16:07 | Outpatient (CLI) | payer MEDICARE, BC, SELFPAY ==
[2022-06-10 17:08] LABS: Hematocrit 30.1 % (36-46); Hemoglobin 9.7 g/dL (12.0-16.0); Mean Corpuscular HGB Conc 32.3 % (30-36); Mean Corpuscular Hemoglobin 30.8 PG (26-34); Mean Corpuscular Volume 95.3 fL (80-100); Platelet Count 301 X10^3/uL (150-400); Red Blood Cell Count 3.16 X10^6/uL (4.0-5.2); Red Cell Distribution Width 15.5 % (11.6-14.8); White Blood Cell Count 6.5 X10^3/uL (4.5-11.0)
[2022-06-10 17:15] LABS: Add Manual Diff / Slide Review YES
[2022-06-10 17:18] LABS: Alanine Aminotransferase 12 IU/L (<35); Albumin 3.8 g/dL (3.5-5.0); Albumin Globulin Ratio 1.2 (1.0-2.8); Alkaline Phosphatase 85 U/L (38-126); Aspartate Aminotransferase 22 IU/L (14-36); BUN Creatinine Ratio 38.5 (6-22); Bilirubin Total 0.4 mg/dL (0.2-1.3); Blood Urea Nitrogen 40 mg/dL (7-17); Calcium 8.3 mg/dL (8.4-10.2); Carbon Dioxide 24 mmol/L (22-32); Chloride 102 mmol/L (98-107); Estimated Glomerular Filt Rate 54 mL/min (>60); Globulin 3.3 g/dL (1.7-4.1); Glucose 117 mg/dL (80-110); HEMOLYSIS < 15 (0-50); Potassium 4.7 mmol/L (3.4-5.1); Sodium 137 mmol/L (137-145); Total Protein 7.1 g/dL (6.3-8.2)
[2022-06-10 18:01] LABS: Neutrophils Absolute Manual 4875 /uL (3000-5900); Platelet Estimate Adequate on smear; RBC Morphology Normal Morphology; Total Cells Counted 100
== END ==
PROVIDERS: Family Provider Internal Medicine; PCP Internal Medicine; Referring Provider Obstetrics & Gynecology; Visit Provider Obstetrics & Gynecology
DX: C57.00 Malignant neoplasm of unspecified fallopian tube (principal)
CPT/HCPCS: 36415; 80053; 85007; 85025

== ENCOUNTER → 2022-06-25 15:31 | Outpatient (CLI) | payer MEDICARE, BC, SELFPAY | PROVIDERS: Family Provider Internal Medicine; PCP Internal Medicine; Referring Provider Internal Medicine; Visit Provider Family Medicine | DX: I89.0 Lymphedema, not elsewhere classified (principal); L97.822 Non-pressure chronic ulcer of other part of left lower leg with fat layer exposed; L08.9 Local infection of the skin and subcutaneous tissue, unspecified; D84.821 Immunodeficiency due to drugs; Z79.899 Other long term (current) drug therapy; E46 Unspecified protein-calorie malnutrition | CPT/HCPCS: 11042; 87070; 87075; 87077; 87186; 87205; 99204; 99213 ==

== ENCOUNTER → 2022-06-30 14:55 | Outpatient (CLI) | payer MEDICARE, BC, SELFPAY | PROVIDERS: Family Provider Internal Medicine; PCP Internal Medicine; Referring Provider Internal Medicine; Visit Provider Family Medicine | DX: I89.0 Lymphedema, not elsewhere classified (principal); L97.822 Non-pressure chronic ulcer of other part of left lower leg with fat layer exposed; L08.9 Local infection of the skin and subcutaneous tissue, unspecified; B96.5 Pseudomonas (aeruginosa) (mallei) (pseudomallei) as the cause of diseases classified elsewhere; C57.00 Malignant neoplasm of unspecified fallopian tube; Z79.899 Other long term (current) drug therapy | CPT/HCPCS: 99212; 99214 ==

== ENCOUNTER → 2022-07-01 15:37 | Outpatient (CLI) | payer MEDICARE, BC, SELFPAY ==
[2022-07-01 16:00] LABS: Add Manual Diff / Slide Review NO; Basophils Absolute Auto 100 /uL (0-100); Basophils Percent Auto 1.2 % (0-2); Eosinophils Absolute Auto 100 /uL (0-450); Eosinophils Percent Auto 1.4 % (2-4); Hemoglobin 9.7 g/dL (12.0-16.0); Lymphocytes Absolute Auto 1100 /uL (1100-4500); Lymphocytes Percent Auto 16.5 % (25-40); Mean Corpuscular HGB Conc 33.4 % (30-36); Monocytes Absolute Auto 1100 /uL (0-900); Monocytes Percent Auto 15.7 % (3-14); Neutrophils Absolute Auto 4500 /uL (1500-7000); Neutrophils Percent Auto 65.2 % (50-75); Platelet Count 274 X10^3/uL (150-400); Red Blood Cell Count 3.12 X10^6/uL (4.0-5.2); Red Cell Distribution Width 16.1 % (11.6-14.8); White Blood Cell Count 6.9 X10^3/uL (4.5-11.0)
[2022-07-01 16:12] LABS: Alanine Aminotransferase 14 IU/L (<35); Albumin 3.7 g/dL (3.5-5.0); Albumin Globulin Ratio 1.1 (1.0-2.8); Alkaline Phosphatase 108 U/L (38-126); Aspartate Aminotransferase 24 IU/L (14-36); BUN Creatinine Ratio 22.1 (6-22); Bilirubin Total 0.3 mg/dL (0.2-1.3); Blood Urea Nitrogen 23 mg/dL (7-17); Calcium 8.4 mg/dL (8.4-10.2); Carbon Dioxide 23 mmol/L (22-32); Chloride 103 mmol/L (98-107); Estimated Glomerular Filt Rate 54 mL/min (>60); Globulin 3.4 g/dL (1.7-4.1); Glucose 93 mg/dL (80-110); HEMOLYSIS < 15 (0-50); Potassium 4.4 mmol/L (3.4-5.1); Sodium 136 mmol/L (137-145); Total Protein 7.1 g/dL (6.3-8.2)
== END ==
PROVIDERS: Family Provider Internal Medicine; PCP Internal Medicine; Referring Provider Obstetrics & Gynecology; Visit Provider Obstetrics & Gynecology
DX: Z79.899 Other long term (current) drug therapy (principal)
CPT/HCPCS: 36415; 80053; 85025

== ENCOUNTER → 2022-07-02 17:23 | Outpatient (CLI) | payer MEDICARE, BC, SELFPAY ==
--- NOTE | 2022-07-02 17:25 | DI.MG.S_ITS ---
BILATERAL DIGITAL SCREENING MAMMOGRAM 3D/2D WITH CAD: 07/02/2022 CLINICAL: Routine screening. Comparison is made to exams dated: 03/29/2021 mammogram, 03/21/2020 mammogram, and 07/11/2018 mammogram - [facility]. Both breasts are extremely dense, which lowers the sensitivity of mammography (category d />75% glandular tissue). Current study was also evaluated with a Computer Aided Detection (CAD) system. There is an asymmetry in the left breast posterior depth superior region seen on the mediolateral oblique view only. No other significant masses, calcifications, or other findings are seen in either breast. IMPRESSION: INCOMPLETE: NEEDS ADDITIONAL IMAGING EVALUATION The asymmetry in the left breast is indeterminate. Additional views with possible ultrasound are recommended. Based on the Tyrer Cuzick model (a risk assessment model) the patient's lifetime risk is 3.9% and her 10 year risk is 0.0%. According to the ACR, ACS, and NCCN guidelines, an annual breast MRI exam along with mammogram is recommended if the patient's lifetime risk is 20% or greater. This exam was interpreted at Station ID: [id number]. NOTE: For mammograms, a report in lay terms will be sent to the patient. Approximately 15% of breast malignancies will not be visualized mammographically. In the management of a palpable breast mass, a negative mammogram must not discourage biopsy of a clinically suspicious lesion. Electronically Signed By: Kyleigh leos/jossie:07/03/2022 08:48:58 letter sent: Additional Imaging Needed ACR BI-RADS Category 0: Incomplete 3340F
== END ==
PROVIDERS: Family Provider Internal Medicine; PCP Internal Medicine; Referring Provider Internal Medicine; Visit Provider Internal Medicine
DX: Z12.31 Encounter for screening mammogram for malignant neoplasm of breast (principal)
CPT/HCPCS: 77063; 77067

== ENCOUNTER → 2022-07-06 14:08 | Outpatient (CLI) | payer MEDICARE, BC, SELFPAY | PROVIDERS: Family Provider Internal Medicine; PCP Internal Medicine; Referring Provider Internal Medicine; Visit Provider Family Medicine | DX: I89.0 Lymphedema, not elsewhere classified (principal); L97.822 Non-pressure chronic ulcer of other part of left lower leg with fat layer exposed; Z79.899 Other long term (current) drug therapy; E46 Unspecified protein-calorie malnutrition | CPT/HCPCS: 97597; 97607 ==

== ENCOUNTER → 2022-07-08 15:00 | Outpatient (CLI) | payer MEDICARE, BC, SELFPAY ==
[2022-07-08 15:43] LABS: Add Manual Diff / Slide Review NO; Basophils Absolute Auto 100 /uL (0-100); Basophils Percent Auto 1.6 % (0-2); Eosinophils Absolute Auto 100 /uL (0-450); Eosinophils Percent Auto 1.8 % (2-4); Hematocrit 29.5 % (36-46); Hemoglobin 9.5 g/dL (12.0-16.0); Lymphocytes Absolute Auto 1200 /uL (1100-4500); Lymphocytes Percent Auto 25.5 % (25-40); Mean Corpuscular HGB Conc 32.3 % (30-36); Mean Corpuscular Hemoglobin 30.2 PG (26-34); Mean Corpuscular Volume 93.4 fL (80-100); Monocytes Absolute Auto 300 /uL (0-900); Monocytes Percent Auto 6.3 % (3-14); Neutrophils Absolute Auto 3200 /uL (1500-7000); Neutrophils Percent Auto 64.8 % (50-75); Platelet Count 213 X10^3/uL (150-400); Red Blood Cell Count 3.16 X10^6/uL (4.0-5.2); Red Cell Distribution Width 16.1 % (11.6-14.8); White Blood Cell Count 4.9 X10^3/uL (4.5-11.0)
[2022-07-08 15:54] LABS: Alanine Aminotransferase 12 IU/L (<35); Albumin 3.7 g/dL (3.5-5.0); Albumin Globulin Ratio 1.2 (1.0-2.8); Alkaline Phosphatase 88 U/L (38-126); Aspartate Aminotransferase 26 IU/L (14-36); BUN Creatinine Ratio 26.7 (6-22); Bilirubin Total 0.4 mg/dL (0.2-1.3); Blood Urea Nitrogen 36 mg/dL (7-17); Calcium 8.2 mg/dL (8.4-10.2); Carbon Dioxide 24 mmol/L (22-32); Chloride 105 mmol/L (98-107); Estimated Glomerular Filt Rate 40 mL/min (>60); Globulin 3.2 g/dL (1.7-4.1); Glucose 110 mg/dL (80-110); HEMOLYSIS 34 (0-50); Sodium 137 mmol/L (137-145); Total Protein 6.9 g/dL (6.3-8.2)
[2022-07-08 15:57] LABS: Potassium 5.5 mmol/L (3.4-5.1)
== END ==
PROVIDERS: Family Provider Internal Medicine; PCP Internal Medicine; Referring Provider Obstetrics & Gynecology; Visit Provider Obstetrics & Gynecology
DX: C57.00 Malignant neoplasm of unspecified fallopian tube (principal)
CPT/HCPCS: 36415; 80053; 85025

== ENCOUNTER → 2022-07-08 15:09 | Outpatient (CLI) | payer MEDICARE, BC, SELFPAY | PROVIDERS: Family Provider Internal Medicine; PCP Internal Medicine; Referring Provider Internal Medicine; Visit Provider Family Medicine | DX: I89.0 Lymphedema, not elsewhere classified (principal); L97.822 Non-pressure chronic ulcer of other part of left lower leg with fat layer exposed | CPT/HCPCS: 99213 ==

== ENCOUNTER → 2022-07-16 14:22 | Outpatient (CLI) | payer MEDICARE, BC, SELFPAY | PROVIDERS: Family Provider Internal Medicine; PCP Internal Medicine; Referring Provider Internal Medicine; Visit Provider Family Medicine | DX: I89.0 Lymphedema, not elsewhere classified (principal); L97.822 Non-pressure chronic ulcer of other part of left lower leg with fat layer exposed; C57.00 Malignant neoplasm of unspecified fallopian tube; M62.81 Muscle weakness (generalized); Z79.899 Other long term (current) drug therapy; E46 Unspecified protein-calorie malnutrition | CPT/HCPCS: 11042 ==

== ENCOUNTER → 2022-07-23 15:10 | Outpatient (CLI) | payer MEDICARE, BC, SELFPAY | PROVIDERS: Family Provider Internal Medicine; PCP Internal Medicine; Referring Provider Internal Medicine; Visit Provider Surgery | DX: I89.0 Lymphedema, not elsewhere classified (principal); L97.822 Non-pressure chronic ulcer of other part of left lower leg with fat layer exposed; Z79.899 Other long term (current) drug therapy; E46 Unspecified protein-calorie malnutrition | CPT/HCPCS: 15271; Q4196 ==

== ENCOUNTER → 2022-07-24 15:20 | Outpatient (CLI) | payer MEDICARE, BC, SELFPAY ==
[2022-07-24 15:53] LABS: Add Manual Diff / Slide Review NO; Basophils Absolute Auto 100 /uL (0-100); Basophils Percent Auto 1.1 % (0-2); Eosinophils Absolute Auto 200 /uL (0-450); Eosinophils Percent Auto 3.1 % (2-4); Hematocrit 33.5 % (36-46); Hemoglobin 10.7 g/dL (12.0-16.0); Lymphocytes Absolute Auto 1300 /uL (1100-4500); Lymphocytes Percent Auto 19.3 % (25-40); Mean Corpuscular HGB Conc 31.9 % (30-36); Mean Corpuscular Hemoglobin 29.7 PG (26-34); Mean Corpuscular Volume 93.2 fL (80-100); Monocytes Absolute Auto 900 /uL (0-900); Monocytes Percent Auto 14.6 % (3-14); Neutrophils Absolute Auto 4000 /uL (1500-7000); Neutrophils Percent Auto 61.9 % (50-75); Platelet Count 257 X10^3/uL (150-400); Red Cell Distribution Width 16.5 % (11.6-14.8); White Blood Cell Count 6.5 X10^3/uL (4.5-11.0)
[2022-07-24 16:07] LABS: Alanine Aminotransferase 15 IU/L (<35); Albumin 4.1 g/dL (3.5-5.0); Albumin Globulin Ratio 1.2 (1.0-2.8); Alkaline Phosphatase 132 U/L (38-126); Aspartate Aminotransferase 25 IU/L (14-36); BUN Creatinine Ratio 29.7 (6-22); Bilirubin Total 0.3 mg/dL (0.2-1.3); Bilirubin Unconjugated 0.3 mg/dL (0.0-1.1); Blood Urea Nitrogen 33 mg/dL (7-17); Calcium 8.7 mg/dL (8.4-10.2); Carbon Dioxide 24 mmol/L (22-32); Chloride 104 mmol/L (98-107); Estimated Glomerular Filt Rate 50 mL/min (>60); Globulin 3.5 g/dL (1.7-4.1); Glucose 86 mg/dL (80-110); HEMOLYSIS < 15 (0-50); Potassium 4.1 mmol/L (3.4-5.1); Sodium 138 mmol/L (137-145); Total Protein 7.6 g/dL (6.3-8.2)
== END ==
PROVIDERS: Family Provider Internal Medicine; PCP Internal Medicine; Referring Provider Obstetrics & Gynecology; Visit Provider Obstetrics & Gynecology
DX: C57.00 Malignant neoplasm of unspecified fallopian tube (principal)
CPT/HCPCS: 36415; 80048; 80076; 85025

== ENCOUNTER → 2022-07-28 15:11 | Outpatient (CLI) | payer MEDICARE, BC, SELFPAY | PROVIDERS: Family Provider Internal Medicine; PCP Internal Medicine; Referring Provider Internal Medicine; Visit Provider Surgery | DX: I89.0 Lymphedema, not elsewhere classified (principal); L97.822 Non-pressure chronic ulcer of other part of left lower leg with fat layer exposed; Z79.899 Other long term (current) drug therapy; C57.00 Malignant neoplasm of unspecified fallopian tube; E46 Unspecified protein-calorie malnutrition | CPT/HCPCS: 99212; 99213 ==

== ENCOUNTER → 2022-08-19 15:51 | Outpatient (CLI) | payer MEDICARE, BC, SELFPAY | PROVIDERS: Family Provider Internal Medicine; PCP Internal Medicine; Referring Provider Internal Medicine; Visit Provider Surgery | DX: I89.0 Lymphedema, not elsewhere classified (principal); L97.822 Non-pressure chronic ulcer of other part of left lower leg with fat layer exposed; C57.00 Malignant neoplasm of unspecified fallopian tube; Z79.899 Other long term (current) drug therapy | CPT/HCPCS: 99213 ==

== ENCOUNTER → 2022-09-04 13:15 | Outpatient (CLI) | payer MEDICARE, BC, SELFPAY ==
[2022-09-04 13:38] LABS: Add Manual Diff / Slide Review NO; Basophils Absolute Auto 0 /uL (0-100); Basophils Percent Auto 0.6 % (0-2); Eosinophils Absolute Auto 100 /uL (0-450); Eosinophils Percent Auto 1.9 % (2-4); Hematocrit 33.3 % (36-46); Hemoglobin 11.1 g/dL (12.0-16.0); Lymphocytes Absolute Auto 1200 /uL (1100-4500); Lymphocytes Percent Auto 17.4 % (25-40); Mean Corpuscular HGB Conc 33.2 % (30-36); Mean Corpuscular Hemoglobin 30.3 PG (26-34); Mean Corpuscular Volume 91.3 fL (80-100); Monocytes Absolute Auto 700 /uL (0-900); Monocytes Percent Auto 9.5 % (3-14); Neutrophils Absolute Auto 4800 /uL (1500-7000); Neutrophils Percent Auto 70.6 % (50-75); Platelet Count 248 X10^3/uL (150-400); Red Blood Cell Count 3.65 X10^6/uL (4.0-5.2); Red Cell Distribution Width 16.8 % (11.6-14.8); White Blood Cell Count 6.8 X10^3/uL (4.5-11.0)
[2022-09-04 13:48] LABS: Alanine Aminotransferase 14 IU/L (<35); Albumin 3.9 g/dL (3.5-5.0); Albumin Globulin Ratio 1.1 (1.0-2.8); Alkaline Phosphatase 150 U/L (38-126); Aspartate Aminotransferase 28 IU/L (14-36); BUN Creatinine Ratio 34.1 (6-22); Bilirubin Total 0.6 mg/dL (0.2-1.3); Bilirubin Unconjugated 0.3 mg/dL (0.0-1.1); Blood Urea Nitrogen 29 mg/dL (7-17); Carbon Dioxide 26 mmol/L (22-32); Chloride 103 mmol/L (98-107); Estimated Glomerular Filt Rate > 60 mL/min (>60); Globulin 3.6 g/dL (1.7-4.1); Glucose 94 mg/dL (80-110); HEMOLYSIS 32 (0-50); Potassium 4.4 mmol/L (3.4-5.1); Sodium 137 mmol/L (137-145); Total Protein 7.5 g/dL (6.3-8.2)
== END ==
PROVIDERS: Family Provider Internal Medicine; PCP Internal Medicine; Referring Provider Obstetrics & Gynecology; Visit Provider Obstetrics & Gynecology
DX: Z79.899 Other long term (current) drug therapy (principal)
CPT/HCPCS: 36415; 80048; 80076; 85025

== ENCOUNTER → 2022-09-09 12:58 | Outpatient (CLI) | payer MEDICARE, BC, SELFPAY | PROVIDERS: Family Provider Internal Medicine; PCP Internal Medicine; Referring Provider Internal Medicine; Visit Provider Surgery | DX: I89.0 Lymphedema, not elsewhere classified (principal); L97.822 Non-pressure chronic ulcer of other part of left lower leg with fat layer exposed; Z79.899 Other long term (current) drug therapy | CPT/HCPCS: 15271; 99213; Q4196 ==

== ENCOUNTER → 2022-09-16 14:41 | Outpatient (CLI) | payer MEDICARE, BC, SELFPAY | PROVIDERS: Family Provider Internal Medicine; PCP Internal Medicine; Referring Provider Internal Medicine; Visit Provider Surgery | DX: I89.0 Lymphedema, not elsewhere classified (principal); L97.822 Non-pressure chronic ulcer of other part of left lower leg with fat layer exposed | CPT/HCPCS: 15271; 99213; Q4196 ==

== ENCOUNTER → 2022-09-23 15:09 | Outpatient (CLI) | payer MEDICARE, BC, SELFPAY | PROVIDERS: Family Provider Internal Medicine; PCP Internal Medicine; Referring Provider Internal Medicine; Visit Provider Surgery | DX: I89.0 Lymphedema, not elsewhere classified (principal); L97.822 Non-pressure chronic ulcer of other part of left lower leg with fat layer exposed | CPT/HCPCS: 15271; Q4196 ==

== ENCOUNTER → 2022-09-30 13:27 | Outpatient (CLI) | payer MEDICARE, BC, SELFPAY ==
--- NOTE | 2022-09-30 | DI.US.S_ITS ---
LIMITED ULTRASOUND OF LEFT BREAST: 09/30/2022 CLINICAL: Patient returns today to evaluate a focal asymmetry in the left breast. Comparison is made to exams dated: 09/30/2022 mammogram, 07/02/2022 mammogram, and 03/21/2020 mammogram - [facility]. Real-time ultrasound of the left breast 12 o'clock region was performed. Ortega scale images of the real-time examination were reviewed. No significant abnormalities were seen sonographically in the left breast. IMPRESSION: NEGATIVE There is no sonographic evidence of malignancy. A 1 year screening mammogram is recommended. Exam findings were conveyed to the patient. This exam was interpreted at Station ID: [id number]. Electronically Signed By: Sidney Meng M.D. [facility]/:09/30/2022 16:26:43 letter sent: Normal Exam Ultrasound BI-RADS: 1 Negative
--- NOTE | 2022-09-30 | DI.MG.S_ITS ---
UNILATERAL LEFT DIGITAL DIAGNOSTIC MAMMOGRAM 3D/2D WITH ADDITIONAL VIEWS: 09/30/2022 CLINICAL: Additional evaluation requested from prior study. Comparison is made to exams dated: 07/02/2022 mammogram, 03/29/2021 mammogram, and 03/21/2020 mammogram - [facility]. The left breast is extremely dense, which lowers the sensitivity of mammography (category d />75% glandular tissue). There is a possible asymmetry in the left breast posterior depth superior region seen on the mediolateral oblique view only. This is less prominent. No other significant masses or calcifications are seen in the breast. IMPRESSION: INCOMPLETE: NEEDS ADDITIONAL IMAGING EVALUATION The possible asymmetry in the left breast is indeterminate. A targeted ultrasound is recommended and will immediately follow. Based on the Tyrer Cuzick model (a risk assessment model) the patient's lifetime risk is 3.9% and her 10 year risk is 0.0%. According to the ACR, ACS, and NCCN guidelines, an annual breast MRI exam along with mammogram is recommended if the patient's lifetime risk is 20% or greater. This exam was interpreted at Station ID: [id number]. NOTE: For mammograms, a report in lay terms will be sent to the patient. Approximately 15% of breast malignancies will not be visualized mammographically. In the management of a palpable breast mass, a negative mammogram must not discourage biopsy of a clinically suspicious lesion. Electronically Signed By: Sidney Meng M.D. [facility]/:09/30/2022 13:58:26 ACR BI-RADS Category 0: Incomplete 3340F
== END ==
PROVIDERS: Family Provider Internal Medicine; PCP Internal Medicine; Referring Provider Internal Medicine; Visit Provider Internal Medicine
DX: R92.8 Other abnormal and inconclusive findings on diagnostic imaging of breast (principal); N63.25 Unspecified lump in the left breast, overlapping quadrants
CPT/HCPCS: 76642; 77065; G0279

== ENCOUNTER → 2022-10-01 14:06 | Outpatient (CLI) | payer MEDICARE, BC, SELFPAY | PROVIDERS: Family Provider Internal Medicine; PCP Internal Medicine; Referring Provider Internal Medicine; Visit Provider Surgery | DX: I89.0 Lymphedema, not elsewhere classified (principal); L97.822 Non-pressure chronic ulcer of other part of left lower leg with fat layer exposed; C57.00 Malignant neoplasm of unspecified fallopian tube; R60.0 Localized edema | CPT/HCPCS: 15271; Q4196 ==

== ENCOUNTER → 2022-10-07 14:32 | Outpatient (CLI) | payer MEDICARE, BC, SELFPAY | PROVIDERS: Family Provider Internal Medicine; PCP Internal Medicine; Referring Provider Internal Medicine; Visit Provider Surgery | DX: I89.0 Lymphedema, not elsewhere classified (principal); L97.822 Non-pressure chronic ulcer of other part of left lower leg with fat layer exposed; Z79.899 Other long term (current) drug therapy; E46 Unspecified protein-calorie malnutrition | CPT/HCPCS: 97597 ==

== ENCOUNTER → 2022-10-14 15:08 | Outpatient (CLI) | payer MEDICARE, BC, SELFPAY | PROVIDERS: Family Provider Internal Medicine; PCP Internal Medicine; Referring Provider Internal Medicine; Visit Provider Surgery | DX: I89.0 Lymphedema, not elsewhere classified (principal); L97.822 Non-pressure chronic ulcer of other part of left lower leg with fat layer exposed; Z79.899 Other long term (current) drug therapy; E46 Unspecified protein-calorie malnutrition; C57.00 Malignant neoplasm of unspecified fallopian tube | CPT/HCPCS: 15271; 36415; 80048; 80076; 85025; Q4133 ==

== ENCOUNTER → 2022-10-14 15:29 | Outpatient (CLI) | payer MEDICARE, BC, SELFPAY ==
[2022-10-14 16:06] LABS: Add Manual Diff / Slide Review NO; Basophils Absolute Auto 100 /uL (0-100); Eosinophils Absolute Auto 100 /uL (0-450); Eosinophils Percent Auto 1.6 % (2-4); Hematocrit 34.2 % (36-46); Hemoglobin 10.9 g/dL (12.0-16.0); Lymphocytes Absolute Auto 1300 /uL (1100-4500); Mean Corpuscular Hemoglobin 30.1 PG (26-34); Mean Corpuscular Volume 94.1 fL (80-100); Monocytes Absolute Auto 600 /uL (0-900); Neutrophils Absolute Auto 3700 /uL (1500-7000); Neutrophils Percent Auto 64.4 % (50-75); Platelet Count 226 X10^3/uL (150-400); Red Blood Cell Count 3.63 X10^6/uL (4.0-5.2); Red Cell Distribution Width 15.8 % (11.6-14.8); White Blood Cell Count 5.8 X10^3/uL (4.5-11.0)
[2022-10-14 16:19] LABS: Alanine Aminotransferase 14 IU/L (<35); Albumin Globulin Ratio 1.1 (1.0-2.8); Alkaline Phosphatase 127 U/L (38-126); Aspartate Aminotransferase 27 IU/L (14-36); Bilirubin Total 0.3 mg/dL (0.2-1.3); Bilirubin Unconjugated 0.1 mg/dL (0.0-1.1); Blood Urea Nitrogen 35 mg/dL (7-17); Calcium 8.4 mg/dL (8.4-10.2); Carbon Dioxide 25 mmol/L (22-32); Chloride 101 mmol/L (98-107); Estimated Glomerular Filt Rate 49 mL/min (>60); Globulin 3.6 g/dL (1.7-4.1); Glucose 98 mg/dL (80-110); HEMOLYSIS < 15 (0-50); Potassium 4.7 mmol/L (3.4-5.1); Sodium 137 mmol/L (137-145); Total Protein 7.6 g/dL (6.3-8.2)
== END ==
PROVIDERS: Family Provider Internal Medicine; PCP Internal Medicine; Referring Provider Obstetrics & Gynecology; Visit Provider Obstetrics & Gynecology
DX: C57.00 Malignant neoplasm of unspecified fallopian tube (principal)
CPT/HCPCS: 36415; 80048; 80076; 85025

== ENCOUNTER → 2022-10-20 15:50 | Outpatient (CLI) | payer MEDICARE, BC, SELFPAY | PROVIDERS: Family Provider Internal Medicine; PCP Internal Medicine; Referring Provider Internal Medicine; Visit Provider Surgery | DX: L97.822 Non-pressure chronic ulcer of other part of left lower leg with fat layer exposed (principal); I89.0 Lymphedema, not elsewhere classified; Z79.899 Other long term (current) drug therapy | CPT/HCPCS: 15271; Q4133 ==

== ENCOUNTER → 2022-10-30 16:03 | Outpatient (CLI) | payer MEDICARE, BC, SELFPAY | PROVIDERS: Family Provider Internal Medicine; PCP Internal Medicine; Referring Provider Internal Medicine; Visit Provider Nurse Practitioner Family | DX: I89.0 Lymphedema, not elsewhere classified (principal); L97.822 Non-pressure chronic ulcer of other part of left lower leg with fat layer exposed | CPT/HCPCS: 15271; 99213; Q4133 ==

== ENCOUNTER → 2022-11-06 14:56 | Outpatient (CLI) | payer MEDICARE, BC, SELFPAY | PROVIDERS: Family Provider Internal Medicine; PCP Internal Medicine; Referring Provider Internal Medicine; Visit Provider Surgery | DX: I89.0 Lymphedema, not elsewhere classified (principal); L97.822 Non-pressure chronic ulcer of other part of left lower leg with fat layer exposed; Z79.899 Other long term (current) drug therapy; E46 Unspecified protein-calorie malnutrition; C57.00 Malignant neoplasm of unspecified fallopian tube | CPT/HCPCS: 15271; Q4196 ==

== ENCOUNTER → 2022-11-11 13:20 | Outpatient (CLI) | payer MEDICARE, BC, SELFPAY ==
[2022-11-11 13:39] LABS: Add Manual Diff / Slide Review NO; Basophils Absolute Auto 100 /uL (0-100); Basophils Percent Auto 1.8 % (0-2); Eosinophils Absolute Auto 100 /uL (0-450); Eosinophils Percent Auto 1.8 % (2-4); Hematocrit 36.9 % (36-46); Hemoglobin 12.1 g/dL (12.0-16.0); Lymphocytes Absolute Auto 1200 /uL (1100-4500); Lymphocytes Percent Auto 16.5 % (25-40); Mean Corpuscular HGB Conc 32.8 % (30-36); Mean Corpuscular Hemoglobin 30.6 PG (26-34); Mean Corpuscular Volume 93.4 fL (80-100); Monocytes Absolute Auto 800 /uL (0-900); Monocytes Percent Auto 10.9 % (3-14); Neutrophils Absolute Auto 5000 /uL (1500-7000); Platelet Count 209 X10^3/uL (150-400); Red Blood Cell Count 3.95 X10^6/uL (4.0-5.2); Red Cell Distribution Width 15.3 % (11.6-14.8); White Blood Cell Count 7.3 X10^3/uL (4.5-11.0)
[2022-11-11 13:53] LABS: Alanine Aminotransferase 16 IU/L (<35); Albumin 4.2 g/dL (3.5-5.0); Albumin Globulin Ratio 1.2 (1.0-2.8); Alkaline Phosphatase 128 U/L (38-126); Aspartate Aminotransferase 25 IU/L (14-36); BUN Creatinine Ratio 37.4 (6-22); Bilirubin Total 0.4 mg/dL (0.2-1.3); Bilirubin Unconjugated 0.2 mg/dL (0.0-1.1); Blood Urea Nitrogen 34 mg/dL (7-17); Calcium 8.7 mg/dL (8.4-10.2); Carbon Dioxide 29 mmol/L (22-32); Chloride 102 mmol/L (98-107); Estimated Glomerular Filt Rate > 60 mL/min (>60); Globulin 3.4 g/dL (1.7-4.1); Glucose 71 mg/dL (80-110); HEMOLYSIS < 15 (0-50); Potassium 4.2 mmol/L (3.4-5.1); Sodium 138 mmol/L (137-145); Total Protein 7.6 g/dL (6.3-8.2)
== END ==
PROVIDERS: Family Provider Internal Medicine; PCP Internal Medicine; Referring Provider Obstetrics & Gynecology; Visit Provider Obstetrics & Gynecology
DX: C57.00 Malignant neoplasm of unspecified fallopian tube (principal)
CPT/HCPCS: 36415; 80048; 80076; 85025

== ENCOUNTER → 2022-11-11 15:40 | Outpatient (CLI) | payer MEDICARE, BC, SELFPAY | PROVIDERS: Family Provider Internal Medicine; PCP Internal Medicine; Referring Provider Internal Medicine; Visit Provider Surgery | DX: L08.9 Local infection of the skin and subcutaneous tissue, unspecified (principal); I89.0 Lymphedema, not elsewhere classified; L97.822 Non-pressure chronic ulcer of other part of left lower leg with fat layer exposed; E46 Unspecified protein-calorie malnutrition; Z79.899 Other long term (current) drug therapy; R60.0 Localized edema; Z79.811 Long term (current) use of aromatase inhibitors; Z92.21 Personal history of antineoplastic chemotherapy | CPT/HCPCS: 36415; 80048; 80076; 85025; 87070; 87075; 87077; 87147; 87186; 87205; 97597; 99213 ==

== ENCOUNTER → 2022-11-11 16:16 | Outpatient (ROUT) | payer MEDICARE, BC, SELFPAY | PROVIDERS: Family Provider Internal Medicine; PCP Internal Medicine; Visit Provider Surgery | DX: L08.9 Local infection of the skin and subcutaneous tissue, unspecified (principal) | CPT/HCPCS: 87070; 87075; 87077; 87147; 87186; 87205 ==

== ENCOUNTER → 2022-11-18 14:51 | Outpatient (CLI) | payer MEDICARE, BC, SELFPAY | PROVIDERS: Family Provider Internal Medicine; PCP Internal Medicine; Referring Provider Internal Medicine; Visit Provider Surgery | DX: I89.0 Lymphedema, not elsewhere classified (principal); L97.822 Non-pressure chronic ulcer of other part of left lower leg with fat layer exposed; Z79.899 Other long term (current) drug therapy; E46 Unspecified protein-calorie malnutrition | CPT/HCPCS: 11042 ==

== ENCOUNTER → 2022-12-01 14:47 | Outpatient (CLI) | payer MEDICARE, BC, SELFPAY | PROVIDERS: Family Provider Internal Medicine; PCP Internal Medicine; Referring Provider Internal Medicine; Visit Provider Surgery | DX: I89.0 Lymphedema, not elsewhere classified (principal); L97.822 Non-pressure chronic ulcer of other part of left lower leg with fat layer exposed; Z79.899 Other long term (current) drug therapy; E46 Unspecified protein-calorie malnutrition | CPT/HCPCS: 99212; 99213 ==

== ENCOUNTER → 2022-12-08 14:41 | Outpatient (CLI) | payer MEDICARE, BC, SELFPAY ==
[2022-12-08 15:23] LABS: Add Manual Diff / Slide Review NO; Basophils Absolute Auto 100 /uL (0-100); Basophils Percent Auto 1.6 % (0-2); Eosinophils Absolute Auto 100 /uL (0-450); Eosinophils Percent Auto 2.4 % (2-4); Hematocrit 34.7 % (36-46); Hemoglobin 11.4 g/dL (12.0-16.0); Lymphocytes Absolute Auto 1400 /uL (1100-4500); Lymphocytes Percent Auto 23.3 % (25-40); Mean Corpuscular HGB Conc 32.8 % (30-36); Mean Corpuscular Hemoglobin 31.2 PG (26-34); Monocytes Absolute Auto 600 /uL (0-900); Monocytes Percent Auto 10.3 % (3-14); Neutrophils Absolute Auto 3700 /uL (1500-7000); Neutrophils Percent Auto 62.4 % (50-75); Platelet Count 204 X10^3/uL (150-400); Red Blood Cell Count 3.65 X10^6/uL (4.0-5.2); Red Cell Distribution Width 14.8 % (11.6-14.8); White Blood Cell Count 5.9 X10^3/uL (4.5-11.0)
[2022-12-08 15:45] LABS: Alanine Aminotransferase 17 IU/L (<35); Albumin Globulin Ratio 1.2 (1.0-2.8); Alkaline Phosphatase 109 U/L (38-126); Aspartate Aminotransferase 29 IU/L (14-36); BUN Creatinine Ratio 32.6 (6-22); Bilirubin Total 0.3 mg/dL (0.2-1.3); Bilirubin Unconjugated 0.2 mg/dL (0.0-1.1); Blood Urea Nitrogen 29 mg/dL (7-17); Calcium 8.6 mg/dL (8.4-10.2); Carbon Dioxide 25 mmol/L (22-32); Chloride 105 mmol/L (98-107); Estimated Glomerular Filt Rate > 60 mL/min (>60); Globulin 3.3 g/dL (1.7-4.1); Glucose 99 mg/dL (80-110); HEMOLYSIS < 15 (0-50); Potassium 4.7 mmol/L (3.4-5.1); Sodium 137 mmol/L (137-145); Total Protein 7.3 g/dL (6.3-8.2)
== END ==
PROVIDERS: Family Provider Internal Medicine; PCP Internal Medicine; Referring Provider Obstetrics & Gynecology; Visit Provider Obstetrics & Gynecology
DX: C57.00 Malignant neoplasm of unspecified fallopian tube (principal)
CPT/HCPCS: 36415; 80048; 80076; 85025

== ENCOUNTER → 2022-12-15 14:47 | Outpatient (CLI) | payer MEDICARE, BC, SELFPAY | PROVIDERS: Family Provider Internal Medicine; PCP Internal Medicine; Referring Provider Internal Medicine; Visit Provider Surgery | DX: I89.0 Lymphedema, not elsewhere classified (principal); C57.00 Malignant neoplasm of unspecified fallopian tube; Z79.899 Other long term (current) drug therapy; R60.0 Localized edema | CPT/HCPCS: 99213 ==

== ENCOUNTER → 2022-12-29 14:41 | Outpatient (CLI) | payer MEDICARE, BC, SELFPAY ==
[2022-12-28 16:40] VITALS: BMI 17.7
== END ==
PROVIDERS: Family Provider Internal Medicine; PCP Internal Medicine; Referring Provider Internal Medicine; Visit Provider Surgery
DX: I89.0 Lymphedema, not elsewhere classified (principal); L97.822 Non-pressure chronic ulcer of other part of left lower leg with fat layer exposed; Z79.899 Other long term (current) drug therapy; E46 Unspecified protein-calorie malnutrition
CPT/HCPCS: 99212; 99213

== ENCOUNTER → 2023-01-06 14:33 | Outpatient (CLI) | payer MEDICARE, BC, SELFPAY ==
[2022-12-28 16:40] VITALS: BMI 17.7
[2023-01-06 15:14] LABS: Basophils Absolute Auto 100 /uL (0-100); Basophils Percent Auto 1.2 % (0-2); Eosinophils Absolute Auto 100 /uL (0-450); Eosinophils Percent Auto 2.5 % (2-4); Hematocrit 34.8 % (36-46); Hemoglobin 11.6 g/dL (12.0-16.0); Lymphocytes Absolute Auto 1300 /uL (1100-4500); Lymphocytes Percent Auto 23.2 % (25-40); Mean Corpuscular HGB Conc 33.3 % (30-36); Mean Corpuscular Hemoglobin 31.4 PG (26-34); Mean Corpuscular Volume 94.3 fL (80-100); Monocytes Absolute Auto 700 /uL (0-900); Monocytes Percent Auto 13.2 % (3-14); Neutrophils Absolute Auto 3400 /uL (1500-7000); Neutrophils Percent Auto 59.9 % (50-75); Platelet Count 190 X10^3/uL (150-400); Red Blood Cell Count 3.69 X10^6/uL (4.0-5.2); White Blood Cell Count 5.7 X10^3/uL (4.5-11.0)
[2023-01-06 15:15] LABS: Add Manual Diff / Slide Review SLIDE REVIEW
[2023-01-06 15:21] LABS: Alanine Aminotransferase 18 IU/L (<35); Albumin Globulin Ratio 1.3 (1.0-2.8); Alkaline Phosphatase 98 U/L (38-126); Aspartate Aminotransferase 30 IU/L (14-36); BUN Creatinine Ratio 43.2 (6-22); Bilirubin Total 0.2 mg/dL (0.2-1.3); Blood Urea Nitrogen 54 mg/dL (7-17); Calcium 8.5 mg/dL (8.4-10.2); Carbon Dioxide 25 mmol/L (22-32); Chloride 102 mmol/L (98-107); Estimated Glomerular Filt Rate 44 mL/min (>60); Globulin 3.2 g/dL (1.7-4.1); Glucose 99 mg/dL (80-110); HEMOLYSIS < 15 (0-50); Potassium 4.8 mmol/L (3.4-5.1); Sodium 136 mmol/L (137-145); Total Protein 7.2 g/dL (6.3-8.2)
[2023-01-06 15:45] LABS: Poikilocytosis 1+
== END ==
PROVIDERS: Family Provider Internal Medicine; PCP Internal Medicine; Referring Provider Obstetrics & Gynecology; Visit Provider Obstetrics & Gynecology
DX: C57.00 Malignant neoplasm of unspecified fallopian tube (principal); Z79.899 Other long term (current) drug therapy
CPT/HCPCS: 36415; 80048; 80076; 85025

== ENCOUNTER → 2023-01-12 14:56 | Outpatient (CLI) | payer MEDICARE, BC, SELFPAY ==
[2022-12-28 16:40] VITALS: BMI 17.7
== END ==
PROVIDERS: Family Provider Internal Medicine; PCP Internal Medicine; Referring Provider Internal Medicine; Visit Provider Surgery
DX: I89.0 Lymphedema, not elsewhere classified (principal); Z79.899 Other long term (current) drug therapy; E46 Unspecified protein-calorie malnutrition
CPT/HCPCS: 99211; 99213

== ENCOUNTER → 2023-02-02 13:58 | Outpatient (CLI) | payer MEDICARE, BC, SELFPAY ==
[2022-12-28 16:40] VITALS: BMI 17.7
[2023-02-02 14:40] LABS: Add Manual Diff / Slide Review NO; Basophils Absolute Auto 0 /uL (0-100); Basophils Percent Auto 0.7 % (0-2); Eosinophils Absolute Auto 100 /uL (0-450); Eosinophils Percent Auto 2.8 % (2-4); Hematocrit 34.5 % (36-46); Hemoglobin 11.4 g/dL (12.0-16.0); Lymphocytes Absolute Auto 1000 /uL (1100-4500); Lymphocytes Percent Auto 20.3 % (25-40); Mean Corpuscular HGB Conc 32.9 % (30-36); Mean Corpuscular Hemoglobin 31.2 PG (26-34); Monocytes Absolute Auto 500 /uL (0-900); Monocytes Percent Auto 10.3 % (3-14); Neutrophils Absolute Auto 3100 /uL (1500-7000); Neutrophils Percent Auto 65.9 % (50-75); Platelet Count 182 X10^3/uL (150-400); Red Blood Cell Count 3.64 X10^6/uL (4.0-5.2); Red Cell Distribution Width 13.9 % (11.6-14.8); White Blood Cell Count 4.7 X10^3/uL (4.5-11.0)
[2023-02-02 14:53] LABS: Alanine Aminotransferase 17 IU/L (<35); Albumin Globulin Ratio 1.4 (1.0-2.8); Alkaline Phosphatase 93 U/L (38-126); Aspartate Aminotransferase 29 IU/L (14-36); BUN Creatinine Ratio 23.5 (6-22); Bilirubin Total 0.4 mg/dL (0.2-1.3); Blood Urea Nitrogen 24 mg/dL (7-17); Calcium 8.7 mg/dL (8.4-10.2); Carbon Dioxide 24 mmol/L (22-32); Chloride 103 mmol/L (98-107); Estimated Glomerular Filt Rate 55 mL/min (>60); Globulin 2.8 g/dL (1.7-4.1); Glucose 82 mg/dL (80-110); HEMOLYSIS < 15 (0-50); Potassium 4.8 mmol/L (3.4-5.1); Sodium 136 mmol/L (137-145); Total Protein 6.8 g/dL (6.3-8.2)
== END ==
PROVIDERS: Family Provider Internal Medicine; PCP Internal Medicine; Referring Provider Obstetrics & Gynecology; Visit Provider Obstetrics & Gynecology
DX: C57.00 Malignant neoplasm of unspecified fallopian tube (principal)
CPT/HCPCS: 36415; 80053; 85025

== ENCOUNTER → 2023-02-22 14:04 | Outpatient (CLI) | payer MEDICARE, BC, SELFPAY ==
[2022-12-28 16:40] VITALS: BMI 17.7
== END ==
PROVIDERS: Family Provider Internal Medicine; PCP Internal Medicine; Referring Provider Internal Medicine; Visit Provider Surgery
DX: I89.0 Lymphedema, not elsewhere classified (principal); L97.822 Non-pressure chronic ulcer of other part of left lower leg with fat layer exposed
CPT/HCPCS: 99213; 99214

== ENCOUNTER → 2023-03-02 13:48 | Outpatient (CLI) | payer MEDICARE, BC, SELFPAY ==
[2022-12-28 16:40] VITALS: BMI 17.7
[2023-03-02 14:39] LABS: Add Manual Diff / Slide Review NO; Basophils Absolute Auto 100 /uL (0-100); Basophils Percent Auto 0.9 % (0-2); Eosinophils Absolute Auto 100 /uL (0-450); Eosinophils Percent Auto 1.9 % (2-4); Hematocrit 36.1 % (36-46); Lymphocytes Absolute Auto 1300 /uL (1100-4500); Lymphocytes Percent Auto 21.7 % (25-40); Mean Corpuscular HGB Conc 33.2 % (30-36); Mean Corpuscular Hemoglobin 31.9 PG (26-34); Mean Corpuscular Volume 96.1 fL (80-100); Monocytes Absolute Auto 400 /uL (0-900); Monocytes Percent Auto 7.3 % (3-14); Neutrophils Absolute Auto 4000 /uL (1500-7000); Neutrophils Percent Auto 68.2 % (50-75); Platelet Count 201 X10^3/uL (150-400); Red Blood Cell Count 3.75 X10^6/uL (4.0-5.2); Red Cell Distribution Width 13.8 % (11.6-14.8); White Blood Cell Count 5.9 X10^3/uL (4.5-11.0)
[2023-03-02 14:55] LABS: Alanine Aminotransferase 20 IU/L (<35); Albumin 4.2 g/dL (3.5-5.0); Albumin Globulin Ratio 1.4 (1.0-2.8); Alkaline Phosphatase 86 U/L (38-126); Aspartate Aminotransferase 30 IU/L (14-36); BUN Creatinine Ratio 39.6 (6-22); Bilirubin Total 0.4 mg/dL (0.2-1.3); Blood Urea Nitrogen 42 mg/dL (7-17); Calcium 8.8 mg/dL (8.4-10.2); Carbon Dioxide 25 mmol/L (22-32); Chloride 103 mmol/L (98-107); Estimated Glomerular Filt Rate 53 mL/min (>60); Globulin 3.1 g/dL (1.7-4.1); Glucose 109 mg/dL (80-110); HEMOLYSIS < 15 (0-50); Potassium 4.6 mmol/L (3.4-5.1); Sodium 137 mmol/L (137-145); Total Protein 7.3 g/dL (6.3-8.2)
== END ==
PROVIDERS: Family Provider Internal Medicine; PCP Internal Medicine; Referring Provider Physician Assistant Medical; Visit Provider Physician Assistant Medical
DX: C57.00 Malignant neoplasm of unspecified fallopian tube (principal)
CPT/HCPCS: 36415; 80053; 83735; 85025

== ENCOUNTER → 2023-03-02 14:54 | Outpatient (CLI) | payer MEDICARE, BC, SELFPAY ==
[2022-12-28 16:40] VITALS: BMI 17.7
== END ==
PROVIDERS: Family Provider Internal Medicine; PCP Internal Medicine; Referring Provider Internal Medicine; Visit Provider Surgery
DX: I89.0 Lymphedema, not elsewhere classified (principal); L97.822 Non-pressure chronic ulcer of other part of left lower leg with fat layer exposed; R60.0 Localized edema; C57.00 Malignant neoplasm of unspecified fallopian tube
CPT/HCPCS: 99213

== ENCOUNTER → 2023-03-16 15:09 | Outpatient (CLI) | payer MEDICARE, BC, SELFPAY ==
[2022-12-28 16:40] VITALS: BMI 17.7
== END ==
PROVIDERS: Family Provider Internal Medicine; PCP Internal Medicine; Referring Provider Internal Medicine; Visit Provider Surgery
DX: I89.0 Lymphedema, not elsewhere classified (principal)
CPT/HCPCS: 99213

== ENCOUNTER → 2023-03-30 13:44 | Outpatient (CLI) | payer MEDICARE, BC, SELFPAY ==
[2022-12-28 16:40] VITALS: BMI 17.7
[2023-03-30 14:22] LABS: Add Manual Diff / Slide Review NO; Basophils Absolute Auto 100 /uL (0-100); Basophils Percent Auto 1.2 % (0-2); Eosinophils Absolute Auto 100 /uL (0-450); Eosinophils Percent Auto 2.6 % (2-4); Hematocrit 36.4 % (36-46); Hemoglobin 12.1 g/dL (12.0-16.0); Lymphocytes Absolute Auto 900 /uL (1100-4500); Lymphocytes Percent Auto 17.1 % (25-40); Mean Corpuscular HGB Conc 33.2 % (30-36); Mean Corpuscular Hemoglobin 31.7 PG (26-34); Mean Corpuscular Volume 95.6 fL (80-100); Monocytes Absolute Auto 700 /uL (0-900); Monocytes Percent Auto 12.7 % (3-14); Neutrophils Absolute Auto 3400 /uL (1500-7000); Neutrophils Percent Auto 66.4 % (50-75); Platelet Count 182 X10^3/uL (150-400); Red Blood Cell Count 3.81 X10^6/uL (4.0-5.2); Red Cell Distribution Width 13.7 % (11.6-14.8); White Blood Cell Count 5.1 X10^3/uL (4.5-11.0)
[2023-03-30 14:31] LABS: Alanine Aminotransferase 18 IU/L (<35); Albumin 4.3 g/dL (3.5-5.0); Albumin Globulin Ratio 1.3 (1.0-2.8); Alkaline Phosphatase 86 U/L (38-126); Aspartate Aminotransferase 33 IU/L (14-36); BUN Creatinine Ratio 34.9 (6-22); Bilirubin Total 0.5 mg/dL (0.2-1.3); Blood Urea Nitrogen 37 mg/dL (7-17); Calcium 8.8 mg/dL (8.4-10.2); Carbon Dioxide 24 mmol/L (22-32); Chloride 102 mmol/L (98-107); Estimated Glomerular Filt Rate 53 mL/min (>60); Globulin 3.2 g/dL (1.7-4.1); Glucose 88 mg/dL (80-110); HEMOLYSIS 15 (0-50); Magnesium 2.1 mg/dL (1.6-2.3); Potassium 4.9 mmol/L (3.4-5.1); Sodium 135 mmol/L (137-145); Total Protein 7.5 g/dL (6.3-8.2)
== END ==
PROVIDERS: Family Provider Internal Medicine; PCP Internal Medicine; Referring Provider Physician Assistant Medical; Visit Provider Physician Assistant Medical
DX: C57.00 Malignant neoplasm of unspecified fallopian tube (principal); Z79.899 Other long term (current) drug therapy
CPT/HCPCS: 36415; 80053; 83735; 85025

== ENCOUNTER → 2023-04-28 14:41 | Outpatient (CLI) | payer MEDICARE, BC, SELFPAY ==
[2022-12-28 16:40] VITALS: BMI 17.7
[2023-04-28 16:16] LABS: Add Manual Diff / Slide Review NO; Basophils Absolute Auto 100 /uL (0-100); Basophils Percent Auto 0.9 % (0-2); Eosinophils Absolute Auto 400 /uL (0-450); Eosinophils Percent Auto 5.2 % (2-4); Hematocrit 37.9 % (36-46); Hemoglobin 12.5 g/dL (12.0-16.0); Lymphocytes Absolute Auto 1100 /uL (1100-4500); Lymphocytes Percent Auto 13.8 % (25-40); Mean Corpuscular HGB Conc 32.9 % (30-36); Mean Corpuscular Hemoglobin 31.6 PG (26-34); Mean Corpuscular Volume 96.2 fL (80-100); Monocytes Absolute Auto 900 /uL (0-900); Monocytes Percent Auto 11.1 % (3-14); Neutrophils Absolute Auto 5600 /uL (1500-7000); Platelet Count 221 X10^3/uL (150-400); Red Blood Cell Count 3.94 X10^6/uL (4.0-5.2); Red Cell Distribution Width 13.7 % (11.6-14.8); White Blood Cell Count 8.1 X10^3/uL (4.5-11.0)
[2023-04-28 16:29] LABS: Alanine Aminotransferase 22 IU/L (<35); Albumin Globulin Ratio 1.2 (1.0-2.8); Alkaline Phosphatase 79 U/L (38-126); Aspartate Aminotransferase 32 IU/L (14-36); BUN Creatinine Ratio 38.8 (6-22); Bilirubin Total 0.4 mg/dL (0.2-1.3); Blood Urea Nitrogen 40 mg/dL (7-17); Calcium 8.6 mg/dL (8.4-10.2); Carbon Dioxide 26 mmol/L (22-32); Chloride 103 mmol/L (98-107); Estimated Glomerular Filt Rate 55 mL/min (>60); Globulin 3.3 g/dL (1.7-4.1); Glucose 89 mg/dL (80-110); HEMOLYSIS 20 (0-50); Magnesium 2.2 mg/dL (1.6-2.3); Potassium 4.6 mmol/L (3.4-5.1); Sodium 136 mmol/L (137-145); Total Protein 7.3 g/dL (6.3-8.2)
== END ==
PROVIDERS: Family Provider Internal Medicine; PCP Internal Medicine; Referring Provider Physician Assistant Medical; Visit Provider Physician Assistant Medical
DX: C57.00 Malignant neoplasm of unspecified fallopian tube (principal); Z79.899 Other long term (current) drug therapy
CPT/HCPCS: 36415; 80053; 83735; 85025

== ENCOUNTER → 2023-05-25 15:26 | Outpatient (CLI) | payer MEDICARE, BC, SELFPAY ==
[2022-12-28 16:40] VITALS: BMI 17.7
[2023-05-25 16:37] LABS: Add Manual Diff / Slide Review NO; Basophils Absolute Auto 0 /uL (0-100); Basophils Percent Auto 0.9 % (0-2); Eosinophils Absolute Auto 200 /uL (0-450); Eosinophils Percent Auto 4.7 % (2-4); Hematocrit 35.2 % (36-46); Hemoglobin 11.7 g/dL (12.0-16.0); Lymphocytes Absolute Auto 1000 /uL (1100-4500); Lymphocytes Percent Auto 20.3 % (25-40); Mean Corpuscular HGB Conc 33.3 % (30-36); Mean Corpuscular Hemoglobin 31.5 PG (26-34); Mean Corpuscular Volume 94.4 fL (80-100); Monocytes Absolute Auto 900 /uL (0-900); Monocytes Percent Auto 17.2 % (3-14); Neutrophils Absolute Auto 2900 /uL (1500-7000); Neutrophils Percent Auto 56.9 % (50-75); Platelet Count 209 X10^3/uL (150-400); Red Blood Cell Count 3.73 X10^6/uL (4.0-5.2); White Blood Cell Count 5.1 X10^3/uL (4.5-11.0)
[2023-05-25 16:51] LABS: Alanine Aminotransferase 20 IU/L (<35); Albumin Globulin Ratio 1.1 (1.0-2.8); Alkaline Phosphatase 94 U/L (38-126); Aspartate Aminotransferase 33 IU/L (14-36); BUN Creatinine Ratio 34.3 (6-22); Bilirubin Total 0.3 mg/dL (0.2-1.3); Blood Urea Nitrogen 47 mg/dL (7-17); Calcium 8.9 mg/dL (8.4-10.2); Carbon Dioxide 23 mmol/L (22-32); Chloride 101 mmol/L (98-107); Estimated Glomerular Filt Rate 39 mL/min (>60); Globulin 3.5 g/dL (1.7-4.1); Glucose 90 mg/dL (80-110); HEMOLYSIS < 15 (0-50); Magnesium 2.8 mg/dL (1.6-2.3); Potassium 4.7 mmol/L (3.4-5.1); Sodium 134 mmol/L (137-145); Total Protein 7.5 g/dL (6.3-8.2)
== END ==
PROVIDERS: Family Provider Internal Medicine; PCP Internal Medicine; Referring Provider Physician Assistant Medical; Visit Provider Physician Assistant Medical
DX: Z79.899 Other long term (current) drug therapy (principal); C57.00 Malignant neoplasm of unspecified fallopian tube
CPT/HCPCS: 36415; 80053; 83735; 85025

== ENCOUNTER → 2023-06-22 14:05 | Outpatient (CLI) | payer MEDICARE, BC, SELFPAY ==
[2022-12-28 16:40] VITALS: BMI 17.7
[2023-06-22 14:53] LABS: Add Manual Diff / Slide Review NO; Basophils Absolute Auto 0 /uL (0-100); Basophils Percent Auto 0.6 % (0-2); Eosinophils Absolute Auto 200 /uL (0-450); Eosinophils Percent Auto 3.8 % (2-4); Hematocrit 33.2 % (36-46); Hemoglobin 10.8 g/dL (12.0-16.0); Lymphocytes Absolute Auto 1000 /uL (1100-4500); Lymphocytes Percent Auto 16.9 % (25-40); Mean Corpuscular HGB Conc 32.6 % (30-36); Mean Corpuscular Hemoglobin 31.3 PG (26-34); Monocytes Absolute Auto 800 /uL (0-900); Monocytes Percent Auto 13.6 % (3-14); Neutrophils Absolute Auto 3900 /uL (1500-7000); Neutrophils Percent Auto 65.1 % (50-75); Platelet Count 227 X10^3/uL (150-400); Red Blood Cell Count 3.45 X10^6/uL (4.0-5.2); Red Cell Distribution Width 13.8 % (11.6-14.8)
[2023-06-22 15:16] LABS: Alanine Aminotransferase 17 IU/L (<35); Albumin 3.7 g/dL (3.5-5.0); Albumin Globulin Ratio 1.2 (1.0-2.8); Alkaline Phosphatase 81 U/L (38-126); Aspartate Aminotransferase 29 IU/L (14-36); BUN Creatinine Ratio 35.7 (6-22); Bilirubin Total 0.2 mg/dL (0.2-1.3); Blood Urea Nitrogen 41 mg/dL (7-17); Calcium 9.2 mg/dL (8.4-10.2); Carbon Dioxide 27 mmol/L (22-32); Chloride 101 mmol/L (98-107); Estimated Glomerular Filt Rate 48 mL/min (>60); Glucose 104 mg/dL (80-110); HEMOLYSIS < 15 (0-50); Magnesium 2.1 mg/dL (1.6-2.3); Potassium 4.2 mmol/L (3.4-5.1); Sodium 136 mmol/L (137-145); Total Protein 6.7 g/dL (6.3-8.2)
== END ==
PROVIDERS: Family Provider Internal Medicine; PCP Internal Medicine; Referring Provider Physician Assistant Medical; Visit Provider Physician Assistant Medical
DX: C57.00 Malignant neoplasm of unspecified fallopian tube (principal); Z79.899 Other long term (current) drug therapy
CPT/HCPCS: 36415; 80053; 83735; 85025

== ENCOUNTER 2023-06-29 14:53 | Outpatient (RCR) | payer MEDICARE, BC, SELFPAY ==
[2022-12-28 16:40] VITALS: BMI 17.7
--- NOTE | 2023-06-29 16:22 | PT.OIE ---
Current Diagnoses Gluteal tendinitis, right hip (06/29/23) Past Medical History (Last Reviewed 04/06/22 @ 07:19 by Caron Powers PA-C) Arthritis Essential hypertension 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 Pulmonary nodule Scoliosis Past Surgical History (Last Reviewed 04/06/22 @ 07:19 by Caron Powers PA-C) History of lung biopsy (2016) History of partial pancreatectomy S/P total abdominal hysterectomy and bilateral salpingo-oophorectomy (~2013) Status post exploratory laparotomy Status post hip hemiarthroplasty (04/01/22) Status post splenectomy (2016) Visit Care Team Role Provider Type Chuy Gudino MD Family Provider Physician Primary Care Provider Specialty: Internal Medicine Address: [address] [place] [address], [address], [address] Email: [email or web address] Tyrell Corrigan MD Attending Provider Physician Referring Provider Specialty: Orthopedics Orthopedic Surgery Address: [address] [place] [address], [id number] Email: [email or web address] Physical Therapy Initial Evaluation PT-OP-A Visit Information Start: 06/28/23 12:37 Freq: Status: Active Protocol: Document 06/29/23 14:50 [facility]AK (Rec: 06/29/23 16:18 SAK [id number]) Out-Patient Physical Therapy Visit Information Visit Information Visit Type Initial Evaluation Visit Start Time 15:00 Visit Stop Time 15:55 Total Visit Minutes 55 Visit Number 1 Evaluation Information Evaluation Date 06/29/23 Precautions Precautions history uterine cancer with metastasis, ongoing treatment, recent radiation right lower T spine PT-OP-B Current Condition Start: 06/28/23 12:37 Freq: Status: Active Protocol: Document 06/29/23 14:50 SAK (Rec: 06/29/23 16:18 SAK [id number]) Current Condition History of Current Condition Onset Date 6 months Current Complaints right hip pain, right thoracolumbar pain History of Current Condition Right sided back and hip pain worsening to severe. Partial RYAN right Sep 2021; has some achiness which increases with prolonged standing and with certain movements , and reports severe pain in right thoracolumbar spine. Had cortisone injection by Dr. Pace to right hip last September, good results. Had another injection last week, some decrease in pain (from 6 to 4) . Dr. Cortez said he couldn't do anything for her spinal pain . Pain increases in her back with prolonged standing and as day progresses . 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 Heat more comfortable than cold. Sleeps on her back. Moderate scoliosis. 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 Treatment Goals Patient/Caregiver Goals decrease her pain to allow her to perform usual activities with min pain. 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 Therapy/Recovery for her who is disabled from a CVA PT-OP-C Subjective Start: 06/28/23 12:37 Freq: Status: Active Protocol: Document 06/29/23 14:50 [facility] (Rec: 06/30/23 12:01 [facility] [id number]) OP-PT Pain Assessment Location thoracolumbar spine Intensity 8 right hip Intensity 8 PT-OP-D Balance Start: 06/28/23 12:37 Freq: Status: Active Protocol: Document 06/29/23 14:50 SAK (Rec: 06/29/23 16:18 [facility] [id number]) OP-PT Balance Assessment Sitting Balance Static Sitting Balance Ability Good Dynamic Sitting Balance Ability Good Standing Balance Static Standing Balance Ability Fair Dynamic Standing Balance Ability Poor Mccormack Fall Scale Copyright Permission PT-OP-F Manual Assessment Start: 06/28/23 12:37 Freq: Status: Active Protocol: Document 06/29/23 14:50 [facility]AK (Rec: 06/30/23 12:00 [facility] [id number]) Manual Assessments Joint Mobility Assessment Joint Mobility Assessment decreased thoracic spine and lumbar spine; moderate dec all motions PT-OP-G Mobility & Gait Start: 06/28/23 12:37 Freq: Status: Active Protocol: Document 06/29/23 14:50 [facility]AK (Rec: 06/29/23 16:18 [facility] [id number]) OP Gait Assessment Gait Gait Assistance Required: Independent Assistive Devices Assistive Device Front Wheeled Walker Gait Deviations General Gait Pattern Antalgic,Decreased Stride Length,Decreased Feet Clearance,Flexed Trunk,Lateral Trunk Lean,Narrow Based Gait Comments Gait Comments scolios with concavity left lumbar right thoracic, convexity right lumbar, left thoracic PT-OP-H Neuro Start: 06/28/23 12:37 Freq: Status: Active Protocol: Document 06/29/23 14:50 [facility]AK (Rec: 06/29/23 16:18 [facility] [id number]) Sensation Evaluation Gross Sensation Gross Sensation WNL PT-OP-J Posture/Palpation/Skin Start: 06/28/23 12:37 Freq: Status: Active Protocol: Document 06/29/23 14:50 [facility]AK (Rec: 06/29/23 16:18 [facility] [id number]) Posture Evaluation Position Sitting Head/C-Spine Posture Forward Head T-Spine Posture Rotation Right,Fixed Scoliosis on (L) L-Spine Posture Increased Lordosis,Fixed Scoliosis on (R) Shoulder Posture (L) Rounded,(R) Rounded,(L) Forward,(R) Forward Scapula Posture (L) Protracted,(R) Protracted Arm Posture (L) Internally Rotated,(R) Internally Rotated Pelvis Posture Anteriorly Tilted,(L) Rotated Anterior Weight Distribution Weight Shifted Right Hip Posture (L) Internally Rotated,(R) Internally Rotated Knee Posture (L) Genu Varus,(R) Genu Varus Ankle/Foot Posture (R) Neutral,(L) Pronated,(L) Forefoot Eversion Comments Posture Comments seated with right lean, left side shortened, right side lengthened. Palpation Assessment Location right lower thorax Palpation Findings Tenderness PT-OP-M Strength Start: 06/28/23 12:37 Freq: Status: Active Protocol: Document 06/29/23 14:50 [facility] (Rec: 06/30/23 12:00 [facility] [id number]) Trunk Strength Trunk Manual Muscle Testing Flexion 4 Good Extension 3- Fair- Core Stabilization poor Hip Strength Hip Manual Muscle Testing Right Flexion (L2) 4- Good- Extension (S1) 3- Fair- Abduction 3- Fair- Adduction 4- Good- External Rotation 3+ Fair+ Internal Rotation 4- Good- Comments pain with all resisted motions Left Flexion (L2) 4 Good Extension (S1) 4- Good- Abduction 4- Good- External Rotation 4- Good- Internal Rotation 4 Good Knee Strength Knee Manual Muscle Testing cedric Flexion (S2) 4 Good Extension (L3) 4 Good PT-OP-Q Treatments Start: 06/28/23 12:37 Freq: Status: Active Protocol: Document 06/29/23 14:50 [facility] (Rec: 06/29/23 16:18 [facility] [id number]) Self-Care/Home Management Treatment Education Patient Education Body Mechanics,Home Exercise Program,Joint Protection,Pain Management,Posture Other Education deep breathing ex with tactile cues lateral and posterior ribcage issued written HO. Instruction in postural correction and positioning in chair, bed, and with standing. PT-OP-T Assessment and Plan Start: 06/28/23 12:37 Freq: Status: Active Protocol: Document 06/29/23 14:50 [facility] (Rec: 06/29/23 16:18 [facility] [id number]) Physical Therapy Assessment Goals Four Impairment postural dysfunction Short Term Goal (STG) Instruct patient in postural correction exercises and optimal positioning to address postural dysfunction STG Duration 07/30/23 [employer] Goal (LTG) Patient to be independent and compliant with postural correction and positioning activities and exercises and be able to demonstrate to PT without cues LTG Duration 08/29/23 Two Impairment pain right hip and thoracolumbar spine Impairment pain doesn't allow her to stand long enough to prepare a meal. Skilled Nursing Goal (LTG) Decrease patient pain sufficient to allow her to stand long enough to prepare a simple meal LTG Duration 08/29/23 Three Impairment weakness core and hips Short Term Goal (STG) instruct in HEP to address strength deficits STG Duration 07/30/23 Skilled Nursing Goal (LTG) patient to be indep and compliant with HEP and demonstrate improvement to WNL to promote improved functional activity tolerance in the home and community LTG Duration 08/29/23 One Impairment pain right hip and thoracolumbar spine as high as 8/10 Short Term Goal (STG) decrease pain to no greater than 6/10 with all usual activities STG Duration 07/30/23 Skilled Nursing Goal (LTG) Decrease pain to no greater than 4/10 with all usual activities LTG Duration 08/29/23 Assessment Summary Assessment Patient presents to PT with c/ o function-limiting pain right thoracolumbar spine and right hip pain, both worse with standing and toward the end of the day. Patient has severe scoliosis as well as metastatic uterine cancer and prior partial right RYAN which are likely contributory. Patient has weakness and pain in core, pelvic, and hip musculature. 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 She would benefit from PT for postural correction and strengthening exercises, patient education regarding posture and body mechanics and pain management. She requests primarily education in strengthening exercises due to her role as primary caregiver for her ; she would like to be able to perform them in the home. Progress may be slow and limited due to her multiple medical issues, but she is highly motivated. Issued initial HEP handout today and she demonstrated good understanding. Discussed POC and she is in agreement. Physical Therapy Plan Frequency and Duration Frequency of Treatment Every Other Week Duration of treatment (weeks) 8 Plan of Care Start Date 06/29/23 Plan of Care End Date 08/29/23 Therapeutic Interventions Therapeutic Interventions Home Exercise Program,Manual Therapy,Neuromuscular Re- education,Patient/Caregiver Education,Self-Care/Home Management,Soft Tissue Mobilization,Taping, Therapeutic Activities, Therapeutic Exercises Modalities Electric Stimulation,Hot Packs Next Visit Focus/Plan Next Note Type Treatment Note Next Visit Plan review HEP, gentle progression as tolerated including addition of gentle bridge and sidelying clamshell. 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
--- NOTE | 2023-06-29 16:22 | PT.OPPOC ---
Physical, Occupational & Speech Therapy At [facility] Current Diagnoses Gluteal tendinitis, right hip (06/29/23) Visit Care Team Role Provider Type Chuy Gudino MD Family Provider Physician Primary Care Provider Specialty: Internal Medicine Address: [address] [place] [address], [facility] [address], [place], [address] Email: [email or web address] Tyrell Corrigan MD Attending Provider Physician Referring Provider Specialty: Orthopedics Orthopedic Surgery Address: [address] [place] [address], [address] Email: [email or web address] Plan Of Care PT-OP-T Assessment and Plan Start: 06/28/23 12:37 Freq: Status: Active Protocol: Document 06/29/23 14:50 [facility]AK (Rec: 06/29/23 16:18 [facility]AK [id number]) Physical Therapy Assessment Goals Four Impairment postural dysfunction Short Term Goal (STG) Instruct patient in postural correction exercises and optimal positioning to address postural dysfunction STG Duration 07/30/23 Custodial Goal (LTG) Patient to be independent and compliant with postural correction and positioning activities and exercises and be able to demonstrate to PT without cues LTG Duration 08/29/23 Two Impairment pain right hip and thoracolumbar spine Impairment pain doesn't allow her to stand long enough to prepare a meal. Associate Marketing Manager Goal (LTG) Decrease patient pain sufficient to allow her to stand long enough to prepare a simple meal LTG Duration 08/29/23 Three Impairment weakness core and hips Short Term Goal (STG) instruct in HEP to address strength deficits STG Duration 07/30/23 Custodial Goal (LTG) patient to be indep and compliant with HEP and demonstrate improvement to WNL to promote improved functional activity tolerance in the home and community LTG Duration 08/29/23 One Impairment pain right hip and thoracolumbar spine as high as 8/10 Short Term Goal (STG) decrease pain to no greater than 6/10 with all usual activities STG Duration 07/30/23 Associate Marketing Manager Goal (LTG) Decrease pain to no greater than 4/10 with all usual activities LTG Duration 08/29/23 Assessment Summary Assessment Patient presents to PT with c/ o function-limiting pain right thoracolumbar spine and right hip pain, both worse with standing and toward the end of the day. Patient has severe scoliosis as well as metastatic uterine cancer and prior partial right RYAN which are likely contributory. Patient has weakness and pain in core, pelvic, and hip musculature. 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 She would benefit from PT for postural correction and strengthening exercises, patient education regarding posture and body mechanics and pain management. She requests primarily education in strengthening exercises due to her role as primary caregiver for her ; she would like to be able to perform them in the home. Progress may be slow and limited due to her multiple medical issues, but she is highly motivated. Issued initial HEP handout today and she demonstrated good understanding. Discussed POC and she is in agreement. Physical Therapy Plan Frequency and Duration Frequency of Treatment Every Other Week Duration of treatment (weeks) 8 Plan of Care Start Date 06/29/23 Plan of Care End Date 08/29/23 Therapeutic Interventions Therapeutic Interventions Home Exercise Program,Manual Therapy,Neuromuscular Re- education,Patient/Caregiver Education,Self-Care/Home Management,Soft Tissue Mobilization,Taping, Therapeutic Activities, Therapeutic Exercises Modalities Electric Stimulation,Hot Packs Next Visit Focus/Plan Next Note Type Treatment Note Next Visit Plan review HEP, gentle progression as tolerated including addition of gentle bridge and sidelying clamshell. 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 Plan of Care Dates Plan of Care Start Date 06/29/23 Plan of Care End Date 08/29/23 Electronically Signed by: Lara Balderas, PT 06/30/23 [id number] If you are in agreement with this Plan of Care, please return a signed and dated copy. I have reviewed this Plan of Care and certify that the skilled therapy services above are required to meet the patient?s needs. Physician Signature Date Printed Name and Credentials Clinical Instructor Signature Printed Name and Credentials
--- NOTE | 2023-07-26 08:54 | PT.OPDS ---
Current Diagnoses Gluteal tendinitis, right hip (06/29/23) Visit Care Team Role Provider Type Chuy Gudino MD Family Provider Physician Primary Care Provider Specialty: Internal Medicine Address: [address] [place] [address], [address], [place], [address] Email: [email or web address] Tyrell Corrigan MD Attending Provider Physician Referring Provider Specialty: Orthopedics Orthopedic Surgery Address: [address] [place] [address], [id number] Email: [email or web address] Visit Number Visit Number 1 Discharge Summary PT-OP-B Current Condition Start: 06/28/23 12:37 Freq: Status: Active Protocol: Document 06/29/23 14:50 [facility] (Rec: 06/29/23 16:18 [facility] [id number]) Current Condition History of Current Condition Onset Date 6 months Current Complaints right hip pain, right thoracolumbar pain History of Current Condition Right sided back and hip pain worsening to severe. Partial RYAN right Sep 2021; has some achiness which increases with prolonged standing and with certain movements , and reports severe pain in right thoracolumbar spine. Had cortisone injection by Dr. Pace to right hip last September, good results. Had another injection last week, some decrease in pain (from 6 to 4) . Dr. Cortez said he couldn't do anything for her spinal pain . Pain increases in her back with prolonged standing and as day progresses . 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 Heat more comfortable than cold. Sleeps on her back. Moderate scoliosis. 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 Treatment Goals Patient/Caregiver Goals decrease her pain to allow her to perform usual activities with min pain. 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 Therapy/Recovery for her who is disabled from a CVA PT-OP-C Subjective Start: 06/28/23 12:37 Freq: Status: Active Protocol: Document 06/29/23 14:50 [facility]AK (Rec: 06/30/23 12:01 [facility] [id number]) OP-PT Pain Assessment Location thoracolumbar spine Intensity 8 right hip Intensity 8 PT-OP-D Balance Start: 06/28/23 12:37 Freq: Status: Active Protocol: Document 06/29/23 14:50 [facility]AK (Rec: 06/29/23 16:18 [facility] [id number]) OP-PT Balance Assessment Sitting Balance Static Sitting Balance Ability Good Dynamic Sitting Balance Ability Good Standing Balance Static Standing Balance Ability Fair Dynamic Standing Balance Ability Poor Mccormack Fall Scale Copyright Permission PT-OP-F Manual Assessment Start: 06/28/23 12:37 Freq: Status: Active Protocol: Document 06/29/23 14:50 [facility] (Rec: 06/30/23 12:00 [facility] [id number]) Manual Assessments Joint Mobility Assessment Joint Mobility Assessment decreased thoracic spine and lumbar spine; moderate dec all motions PT-OP-G Mobility & Gait Start: 06/28/23 12:37 Freq: Status: Active Protocol: Document 06/29/23 14:50 [facility] (Rec: 06/29/23 16:18 [facility] [id number]) OP Gait Assessment Gait Gait Assistance Required: Independent Assistive Devices Assistive Device Front Wheeled Walker Gait Deviations General Gait Pattern Antalgic,Decreased Stride Length,Decreased Feet Clearance,Flexed Trunk,Lateral Trunk Lean,Narrow Based Gait Comments Gait Comments scolios with concavity left lumbar right thoracic, convexity right lumbar, left thoracic PT-OP-H Neuro Start: 06/28/23 12:37 Freq: Status: Active Protocol: Document 06/29/23 14:50 [facility] (Rec: 06/29/23 16:18 [facility] [id number]) Sensation Evaluation Gross Sensation Gross Sensation WNL PT-OP-J Posture/Palpation/Skin Start: 06/28/23 12:37 Freq: Status: Active Protocol: Document 06/29/23 14:50 [facility] (Rec: 06/29/23 16:18 [facility] [id number]) Posture Evaluation Position Sitting Head/C-Spine Posture Forward Head T-Spine Posture Rotation Right,Fixed Scoliosis on (L) L-Spine Posture Increased Lordosis,Fixed Scoliosis on (R) Shoulder Posture (L) Rounded,(R) Rounded,(L) Forward,(R) Forward Scapula Posture (L) Protracted,(R) Protracted Arm Posture (L) Internally Rotated,(R) Internally Rotated Pelvis Posture Anteriorly Tilted,(L) Rotated Anterior Weight Distribution Weight Shifted Right Hip Posture (L) Internally Rotated,(R) Internally Rotated Knee Posture (L) Genu Varus,(R) Genu Varus Ankle/Foot Posture (R) Neutral,(L) Pronated,(L) Forefoot Eversion Comments Posture Comments seated with right lean, left side shortened, right side lengthened. Palpation Assessment Location right lower thorax Palpation Findings Tenderness PT-OP-M Strength Start: 06/28/23 12:37 Freq: Status: Active Protocol: Document 06/29/23 14:50 [facility] (Rec: 06/30/23 12:00 [facility] [id number]) Trunk Strength Trunk Manual Muscle Testing Flexion 4 Good Extension 3- Fair- Core Stabilization poor Hip Strength Hip Manual Muscle Testing Right Flexion (L2) 4- Good- Extension (S1) 3- Fair- Abduction 3- Fair- Adduction 4- Good- External Rotation 3+ Fair+ Internal Rotation 4- Good- Comments pain with all resisted motions Left Flexion (L2) 4 Good Extension (S1) 4- Good- Abduction 4- Good- External Rotation 4- Good- Internal Rotation 4 Good Knee Strength Knee Manual Muscle Testing cedric Flexion (S2) 4 Good Extension (L3) 4 Good PT-OP-T Assessment and Plan Start: 06/28/23 12:37 Freq: Status: Active Protocol: Document 07/26/23 08:53 [facility] (Rec: 07/26/23 08:54 [facility] [id number]) Physical Therapy Plan Discharge Physical Therapy Discharge Comments Patient was in hospital and being discharged home with hospice, prior to going home
== END 2023-07-26 10:33 | disposition home or self-care (01) ==
LOC: PHYS 14:53
PROVIDERS: Family Provider Internal Medicine; PCP Internal Medicine; Referring Provider Orthopaedic Surgery Adult Reconstructive Orthopaedic Surgery; Visit Provider Orthopaedic Surgery Adult Reconstructive Orthopaedic Surgery
DX: M76.01 Gluteal tendinitis, right hip (principal)
CPT/HCPCS: 97110; 97162; 97535

== ENCOUNTER 2023-07-01 22:36 | Inpatient (IN) | payer MEDICARE, BC, SELFPAY ==
[2022-12-28 16:40] VITALS: BMI 17.7
[2023-07-01 22:37] VITALS: BP 237/106; PULSE 77; RESP 16; TEMP 36.7; O2SAT 98; BMI 17.4
--- NOTE | 2023-07-01 22:54 | ED_ITS ---
HPI - General Adult General Chief complaint: Abdominal Pain Stated complaint: abd pain on fire! Time Seen by Provider: 07/01/23 22:39 Source: patient Mode of arrival: Ambulatory History of Present Illness HPI narrative: Patient is an 83-year-old female. Has a history of ovarian/fallopian tube cancer. Is currently going chemotherapy and has been doing chemotherapy for many years now. She is here for evaluation of abdominal discomfort. She states the symptoms started about noon today. They worsened as the day went on. Is having some nausea but no vomiting. No chest pain. No shortness of breath. No fevers. No cough. She does feel like her abdomen is becoming distended. No urinary symptoms. He has had multiple abdominal surgeries in the past. Related Data Home Medications Medication Instructions Recorded Confirmed prochlorperazine maleate 10 mg 10 mg PO Q6H PRN Nausea 05/26/21 05/14/23 tablet (Compazine) bevacizumab 25 mg/mL intravenous IV QMONTH 05/14/23 05/14/23 solution (Avastin) carvedilol phosphate 40 mg See Rx Instructions PO DAILY 05/14/23 05/14/23 capsule,[id number] multiphase gabapentin 100 mg capsule 300 mg PO DAILY 05/14/23 05/14/23 mirabegron 25 mg tablet,extended 25 mg PO DAILY 05/14/23 05/14/23 release 24 hr (Myrbetriq) telmisartan 40 mg tablet 40 mg PO BID 05/14/23 05/14/23 Previous Rx's Medication Instructions Recorded acetaminophen 325 mg capsule 650 mg (2 x 325 mg) PO QID PRN 05/22/21 (Tylenol) pain #60 caps furosemide 20 mg tablet 40 mg (2 x 20 mg) PO DAILY #180 04/12/23 tabs felodipine 2.5 mg tablet,extended 2.5 mg PO DAILY #90 tabs 06/28/23 release 24 hr Allergies Allergy/AdvReac Type Severity Reaction Status Date / Time latex [LATEX] Allergy Intermediate RASH Verified 05/14/23 15:40 amoxicillin Allergy Mild ITCHING/CALIN Verified 05/14/23 15:40 H azithromycin [AZITHROMYCIN] Allergy Mild HIVES Verified 05/14/23 15:40 Penicillins [PENICILLINS] Allergy Mild RASH/ITCHIN Verified 05/14/23 15:40 G hydralazine AdvReac Severe hives Verified 05/14/23 15:40 minoxidil AdvReac Intermediate severe leg Verified 05/14/23 15:40 edema and symptomatic hypotension spironolactone AdvReac Intermediate hyperkalemi Verified 05/14/23 15:40 a HENRY Inhibitors AdvReac Mild COUGH Verified 05/14/23 15:40 [HENRY INHIBITORS] Review of Systems Constitutional Constitutional: Reports system reviewed and no additional complaints, except as documented Cardiovascular Cardiovascular: Reports system reviewed and no additional complaints, except as documented Respiratory Respiratory: Reports system reviewed and no additional complaints, except as documented Gastrointestinal Gastrointestinal: Reports system reviewed and no additional complaints, except as documented Genitourinary Genitourinary: Reports system reviewed and no additional complaints, except as documented Hematologic/Lymphatic On Anticoagulants: No Patient History Medical History Port-A-Cath in place Scoliosis Arthritis Pulmonary nodule Fallopian tube carcinoma Essential hypertension Surgical History History of lung biopsy (2016) History of partial pancreatectomy S/P total abdominal hysterectomy and bilateral salpingo-oophorectomy (~2013) Status post exploratory laparotomy Status post hip hemiarthroplasty (04/01/22) Status post splenectomy (2015) Social History household members: spouse Smoking Status: Former smoker alcohol intake: former Smoking Status: Former smoker alcohol intake frequency: 0-2 drinks per day Substance Use Type: does not use Exam Initial Vital Signs Initial Vital Signs: Vital Signs Temperature 98.1 F 07/01/23 22:37 Pulse Rate 77 07/01/23 22:37 Respiratory Rate 16 07/01/23 22:37 Blood Pressure 237/106 H 07/01/23 22:37 Pulse Oximetry 98 07/01/23 22:37 Oxygen Delivery Method Room Air 07/01/23 22:37 Const General: cooperative, comfortable and No ill appearing HENMT Head: normal to inspection and normocephalic Resp Effort & Inspection: normal respiratory effort Auscultation: clear to auscultation bilaterally Cardio Rate: regular rate Rhythm: regular rhythm GI Inspection: distended Palpation: firm, No guarding and tender Skin General: no rashes or lesions noted Neuro General: patient alert, patient awake and patient oriented x3 Cognition: normal cognition Speech: speech normal Extrem General: capillary refill normal Psych Appearance: grossly normal and well kempt Course Orders Ordered: ED Orders 07/01/23 22:48 Complete Blood Count AUTO DIFF Stat Comprehensive Metabolic Panel Stat Lipase Stat 07/01/23 22:52 CT abdomen pelvis w con Stat 07/02/23 01:12 Consult to General Surgery Stat Morphine Sulfate (Morphine 4 Mg/Ml Inj) 4 mg IV NOW ONE Stop: 07/02/23 01:50 Discontinued Medications Morphine Sulfate (Morphine 4 Mg/Ml Inj) 4 mg IV NOW ONE Stop: 07/01/23 22:53 Last Admin: 07/01/23 23:00 Dose: 4 mg Documented By: SUSANA Vital Signs Vital signs: Vital Signs - 8 hr 07/01/23 22:37 07/01/23 22:56 07/01/23 23:00 Temperature 98.1 F Pulse Rate 77 70 68 Respiratory Rate 16 Blood Pressure 237/106 H Pulse Oximetry 98 99 98 Oxygen Delivery Method Room Air 07/01/23 23:08 07/01/23 23:08 07/01/23 23:37 Temperature Pulse Rate 64 71 Respiratory Rate Blood Pressure 184/85 H Pulse Oximetry 97 96 Oxygen Delivery Method 07/02/23 00:00 07/02/23 00:12 07/02/23 00:12 Temperature Pulse Rate 64 59 L Respiratory Rate Blood Pressure 165/73 H Pulse Oximetry 97 96 Oxygen Delivery Method 07/02/23 00:30 07/02/23 00:30 07/02/23 01:00 Temperature Pulse Rate 61 60 Respiratory Rate 18 Blood Pressure 183/85 H Pulse Oximetry 96 94 Oxygen Delivery Method 07/02/23 01:00 Temperature Pulse Rate Respiratory Rate 18 Blood Pressure 186/82 H Pulse Oximetry Oxygen Delivery Method Medical Decision Making Medical Records Medical records reviewed: Yes I reviewed the patient's medical records. Lab Data Lab results reviewed: Yes I reviewed the patient's lab results. 07/01/23 22:48 07/01/23 22:48 Labs: Lab Results 07/01/23 Range/Units 22:48 WBC 8.7 (4.5-11.0) X10^3/uL RBC 3.92 L (4.0-5.2) X10^6/uL Hgb 12.2 (12.0-16.0) g/dL Hct 37.3 (36-46) % MCV 95.2 (80-100) fL MCH 31.0 (26-34) PG MCHC 32.6 (30-36) % RDW 13.8 (11.6-14.8) % Plt Count 239 (150-400) X10^3/uL Neut % (Auto) 73.6 (50-75) % Lymph % (Auto) 15.4 L (25-40) % [place] % (Auto) 8.6 (3-14) % Eos % (Auto) 1.5 L (2-4) % Baso % (Auto) 0.9 (0-2) % Neut # (Auto) 6400 (7580-1985) /uL Lymph # (Auto) 1300 (8337-8735) /uL [place] # (Auto) 800 (0-900) /uL Eos # (Auto) 100 (0-450) /uL Baso # (Auto) 100 (0-100) /uL Sodium 136 L (137-145) mmol/L Potassium 4.8 (3.4-5.1) mmol/L Chloride 103 (98-107) mmol/L Carbon Dioxide 22 (22-32) mmol/L BUN 35 H (7-17) mg/dL Creatinine 0.98 (0.52-1.04) mg/dL Estimated GFR 58 L (>60) mL/min BUN/Creatinine Ratio 35.7 H (6-22) Glucose 132 H (80-110) mg/dL Calcium 9.5 (8.4-10.2) mg/dL Total Bilirubin 0.4 (0.2-1.3) mg/dL AST 31 (14-36) IU/L ALT 18 (<35) IU/L Alkaline Phosphatase 113 (38-126) U/L Total Protein 8.6 H (6.3-8.2) g/dL Albumin 4.2 (3.5-5.0) g/dL Globulin 4.4 H (1.7-4.1) g/dL Albumin/Globulin Ratio 1.0 (1.0-2.8) Lipase 174 (23-300) U/L Imaging Data CT scan - abdomen/pelvis: Radiologist's Impression: PROCEDURE: CT ABDOMEN PELVIS W CON INDICATIONS: Abdominal distention and generalized discomfort TECHNIQUE: After the administration of intravenous contrast, axial sections acquired from the lung bases to the pubic symphysis. Coronal and sagittal reformats were performed. For radiation dose reduction, the following was used: automated exposure control, adjustment of mA and/or kV according to patient size. COMPARISON: [facility], CT, CT ABDOMEN PELVIS W CON, 03/29/2022, 11:37. FINDINGS: Image quality: Excellent. Lung bases: Right lower lobe alveolar opacity with air bronchograms. Small right pleural effusion. In the left lung is clear. Heart: No significant findings. ABDOMEN: Liver: No visible mass. Gallbladder: Distended with slight wall thickening. No visible calcifications. Biliary ducts: Mild diffuse intrahepatic biliary dilatation. Extrahepatic common duct is normal caliber. Pancreas: Moderate diffuse smooth pancreatic ductal dilatation. Spleen: Surgically absent. Adrenal Glands: No nodules. Kidneys and Ureters: Symmetric enhancement. No nephrolithiasis or hydronephrosis. No hydroureter. Right renal cyst. Stomach and Bowel: Proximal stomach is distended and filled with fluid. There is narrowing in the gastric body and the distal stomach is decompressed. There is small bowel obstruction with several dilated loops of fluid-filled small bowel in the lower abdomen and pelvis demonstrating air-fluid levels. There are several long segments of decompressed small bowel. There is 1 transition point in the left lower quadrant, series 2, image 50. Peritoneum: There is left pericolic gutter fluid. No free air. Ventral Wall: No hernias. Abdominal Nodes: No retroperitoneal or mesenteric adenopathy by size criteria. Vessels: The IVC is decompressed. Abdominal aorta is normal caliber. PELVIS: Pelvic Organs: Not well seen Bladder: Decompressed Pelvic Nodes: No enlarged lymph nodes. Miscellaneous: No hernias are seen. Bones: Right hip arthroplasty. Left lateral L4-5 laminectomy and disc spacer. Moderate dextroscoliosis. Diffuse demineralization. IMPRESSION: 1. Acute small bowel obstruction with a left lower quadrant transition point, likely adhesion. 2. Pancreaticobiliary ductal dilatation, potentially reactive. Correlate with LFTs to determine clinical significance. 3. Right lower lobe lung alveolar opacity with effusion. Possibly infectious or aspiration. 4. Findings called to Dr. Alberto in the emergency room at 102 hours. MDM Narrative Medical decision making narrative: History and physical exam are consistent with the CT scan finding of a small bowel obstruction. I did discuss the case with Dr. Granados on-call for General surgery. I also discussed the case with Dr. Gudino who is the patient's primary doctor who will admit her for further evaluation and treatment. I did discuss the need for admission with the patient. We did discuss the CT scan. I do feel that she would benefit from a NG tube in the patient was agreeable to have an attempt made to place this. CT scan does show some findings potentially concerning for pneumonia however clinically she is not have pneumonia. We will hold on any antibiotics for now. We will admit for further evaluation and treatment. Discharge Plan Departure Patient Disposition: Admitted As Inpatient Clinical Impression: Small bowel obstruction Admit Date/Time: 07/02/23 01:27 Admit Provider: Chuy Gudino
[2023-07-01 22:56] VITALS: PULSE 70; O2SAT 99
[2023-07-01 23:00] VITALS: PULSE 68; O2SAT 98
[2023-07-01] MEDS: MORPHINE 4 MG/ML INJ IV (23:00)
[2023-07-01 23:06] LABS: Add Manual Diff / Slide Review NO; Basophils Absolute Auto 100 /uL (0-100); Basophils Percent Auto 0.9 % (0-2); Eosinophils Absolute Auto 100 /uL (0-450); Eosinophils Percent Auto 1.5 % (2-4); Hematocrit 37.3 % (36-46); Hemoglobin 12.2 g/dL (12.0-16.0); Lymphocytes Absolute Auto 1300 /uL (1100-4500); Lymphocytes Percent Auto 15.4 % (25-40); Mean Corpuscular HGB Conc 32.6 % (30-36); Mean Corpuscular Volume 95.2 fL (80-100); Monocytes Absolute Auto 800 /uL (0-900); Monocytes Percent Auto 8.6 % (3-14); Neutrophils Absolute Auto 6400 /uL (1500-7000); Neutrophils Percent Auto 73.6 % (50-75); Platelet Count 239 X10^3/uL (150-400); Red Blood Cell Count 3.92 X10^6/uL (4.0-5.2); Red Cell Distribution Width 13.8 % (11.6-14.8); White Blood Cell Count 8.7 X10^3/uL (4.5-11.0)
[2023-07-01 23:08] VITALS: BP 184/85; PULSE 64; O2SAT 97
[2023-07-01 23:17] LABS: Alanine Aminotransferase 18 IU/L (<35); Albumin 4.2 g/dL (3.5-5.0); Alkaline Phosphatase 113 U/L (38-126); Aspartate Aminotransferase 31 IU/L (14-36); BUN Creatinine Ratio 35.7 (6-22); Bilirubin Total 0.4 mg/dL (0.2-1.3); Blood Urea Nitrogen 35 mg/dL (7-17); Calcium 9.5 mg/dL (8.4-10.2); Carbon Dioxide 22 mmol/L (22-32); Chloride 103 mmol/L (98-107); Estimated Glomerular Filt Rate 58 mL/min (>60); Globulin 4.4 g/dL (1.7-4.1); Glucose 132 mg/dL (80-110); HEMOLYSIS < 15 (0-50); Lipase 174 U/L (23-300); Potassium 4.8 mmol/L (3.4-5.1); Sodium 136 mmol/L (137-145); Total Protein 8.6 g/dL (6.3-8.2)
[2023-07-01 23:37] VITALS: PULSE 71; O2SAT 96
[2023-07-02] VITALS (20 sets, daily range): BP systolic 142–209; BP diastolic 63–119; PULSE 59–80; RESP 15–20; TEMP 36.6–37.4; O2SAT 91–98; BMI 17.6
--- NOTE | 2023-07-02 | DI.RAD.S_ITS ---
PROCEDURE: XR GASTROGRAFIN CHALLENGE COMPARISON: [facility], CT, CT ABDOMEN PELVIS W CON, 07/01/2023, 23:26. INDICATIONS: SBO FINDINGS: Gastrografin was administered at 13:50 p.m. Image was taken at 17:50 p.m. There is oral contrast within the stomach and distended small bowel. Suspected contrast within the hepatic flexure. Contrast seen within the distal esophagus, indicating reflux. Right total hip arthroplasty. IMPRESSION: Gastrografin likely within the large bowel, 4 hours after administration. Dictated by: Tay Frank M.D. on 07/02/2023 at 18:37 Approved by: Tay Frank M.D. on 07/02/2023 at 18:38
[2023-07-02] MEDS: MORPHINE 4 MG/ML INJ IV (01:54)
--- NOTE | 2023-07-02 02:13 | DI.RAD.S_ITS ---
PROCEDURE: XR CHEST 1V INDICATIONS: NG tube placement TECHNIQUE: One view of the chest was acquired. COMPARISON: [facility], CHEST 2 VIEW, 06/22/2014, 10:40. [facility], , CHEST 2 VIEW, 05/09/2010, 13:24. FINDINGS: Surgical changes and devices: Gastric tube side port projects over GE junction. Right chest wall port tip projects over the high right atrium. Suture material projects over the left lower lung zone. Lungs and pleura: Bilateral nodularity. Hazy right basilar airspace opacity. Mediastinum: Mediastinal contours appear normal. Heart size is normal. Bones and chest wall: No suspicious bony lesions. Overlying soft tissues appear unremarkable. IMPRESSION: Gastric tube side port projects over the GE junction. Recommend advancement by 3 cm. Bilateral nodularity of unclear etiology. Metastatic disease not excluded. Hazy right basilar airspace opacity, probably atelectasis, less likely infection or aspiration. Agree with preliminary report. Dictated by: Tay Frank M.D. on 07/02/2023 at 8:04 Approved by: Tay Frank M.D. on 07/02/2023 at 8:05
[2023-07-02] MEDS: DEXTROSE 5%-LACTATED RINGERS 1,000 ML 100 ML IV ×2 (03:48→11:41)
--- NOTE | 2023-07-02 04:51 | DI.RAD.S_ITS ---
PROCEDURE: XR CHEST 1V INDICATIONS: NG placement TECHNIQUE: One view of the chest was acquired. COMPARISON: [facility], CT, CT ABDOMEN PELVIS W CON, 07/01/2023, 23:26. [facility], CR, XR CHEST 1V, 07/02/2023, 2:47. FINDINGS: Surgical changes and devices: Right chest Port-A-Cath, NGT projects to the stomach Lungs and pleura: Persistent right basilar consolidative density. Remote partial left pulmonary section. No pleural effusions or pneumothorax. Mediastinum: Mediastinal contours appear normal. Heart size is normal. Bones and chest wall: No suspicious bony lesions. Overlying soft tissues appear unremarkable. IMPRESSION: Unchanged right basilar consolidative density. NG tube in satisfactory position. Comment: Final report is concordant with preliminary interpretation provided by [facility]. Dictated by: Rajendra Evangelista M.D. on 07/02/2023 at 7:57 Approved by: Rajendra Evangelista M.D. on 07/02/2023 at 7:59
--- NOTE | 2023-07-02 06:05 | PC.NURSE ---
mine shifter RN called Dr Terese An to request topical throat spray to alleviate Patients throat pain from NG tube placement. And to get parameters for metoprolol 5mg IV Q6hr. Dr Gudino instructed to give metoprolol [id number] without parameters due to patient being NPO and not being able to take her home medications including beta blockers.
--- NOTE | 2023-07-02 06:37 | PM.HP.1 ---
History of Present Illness History of Present Illness Date Patient Seen: 07/02/23 Time Patient Seen: 06:37 Chief complaint: abd pain on fire! 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 Symptoms were less than 24 hours in duration. She had nausea but no emesis. Also denies any shortness of breath cough or any respiratory symptoms. She was subsequently found to have a small-bowel obstruction. Patient has had multiple intra-abdominal procedures because of her cancer. She is not had a bowel obstruction previously White blood cell count was normal. She had NG tube placed because of her distention. Surgery was consulted and she was admitted to my service for conservative therapy [facility] Medical History (Updated 07/02/23 @ 06:40 by Chuy Gudino MD) Symptomatic anemia Port-A-Cath in place Scoliosis Arthritis Pulmonary nodule Fallopian tube carcinoma Essential hypertension Surgical History Status post hip hemiarthroplasty (04/01/22) History of lung biopsy (2016) S/P total abdominal hysterectomy and bilateral salpingo-oophorectomy (~2013) History of partial pancreatectomy Status post exploratory laparotomy Status post splenectomy (2015) Social History household members: spouse Smoking Status: Former smoker alcohol intake: former Meds Home Medications and Allergies Home Medications Medication Instructions Recorded Confirmed Type acetaminophen 325 mg capsule 650 mg (2 x 325 mg) PO QID PRN 05/22/21 07/02/23 Rx (Tylenol) pain #60 caps prochlorperazine maleate 10 mg 10 mg PO Q6H PRN Nausea 05/26/21 07/02/23 History tablet (Compazine) furosemide 20 mg tablet 40 mg (2 x 20 mg) PO DAILY #180 04/12/23 07/02/23 Rx tabs bevacizumab 25 mg/mL intravenous IV QMONTH 05/14/23 05/14/23 History solution (Avastin) carvedilol phosphate 40 mg See Rx Instructions PO DAILY 05/14/23 07/02/23 History capsule,[id number] multiphase gabapentin 100 mg capsule 200 mg PO DAILY 05/14/23 07/02/23 History mirabegron 25 mg tablet,extended 25 mg PO DAILY 05/14/23 07/02/23 History release 24 hr (Myrbetriq) telmisartan 40 mg tablet 40 mg PO BID 05/14/23 05/14/23 History felodipine 2.5 mg tablet,extended 2.5 mg PO DAILY #90 tabs 06/28/23 07/02/23 Rx release 24 hr Allergies Allergy/AdvReac Type Severity Reaction Status Date / Time latex [LATEX] Allergy Intermediate RASH Verified 05/14/23 15:40 amoxicillin Allergy Mild ITCHING/CALIN Verified 05/14/23 15:40 H azithromycin [AZITHROMYCIN] Allergy Mild HIVES Verified 05/14/23 15:40 Penicillins [PENICILLINS] Allergy Mild RASH/ITCHIN Verified 05/14/23 15:40 G hydralazine AdvReac Severe hives Verified 05/14/23 15:40 minoxidil AdvReac Intermediate severe leg Verified 05/14/23 15:40 edema and symptomatic hypotension spironolactone AdvReac Intermediate hyperkalemi Verified 05/14/23 15:40 a HENRY Inhibitors AdvReac Mild COUGH Verified 05/14/23 15:40 [HENRY INHIBITORS] Review of Systems Review of Systems ROS: Yes All systems reviewed with the patient and are negative except as otherwise documented Exam Vital Signs (past 8 hours): - 07/01/23 22:56 07/01/23 23:00 07/01/23 23:08 Temperature Pulse Rate 70 68 Respiratory Rate Blood Pressure 184/85 H Pulse Oximetry 99 98 Oxygen Delivery Method Oxygen Flow Rate 07/01/23 23:08 07/01/23 23:37 07/02/23 00:00 Temperature Pulse Rate 64 71 64 Respiratory Rate Blood Pressure Pulse Oximetry 97 96 97 Oxygen Delivery Method Oxygen Flow Rate 07/02/23 00:12 07/02/23 00:12 07/02/23 00:30 Temperature Pulse Rate 59 L 61 Respiratory Rate 18 Blood Pressure 165/73 H Pulse Oximetry 96 96 Oxygen Delivery Method Oxygen Flow Rate 07/02/23 00:30 07/02/23 01:00 07/02/23 01:00 Temperature Pulse Rate 60 Respiratory Rate 18 Blood Pressure 183/85 H 186/82 H Pulse Oximetry 94 Oxygen Delivery Method Oxygen Flow Rate 07/02/23 01:20 07/02/23 01:30 07/02/23 01:37 Temperature Pulse Rate 70 71 Respiratory Rate Blood Pressure 209/119 H Pulse Oximetry 95 Oxygen Delivery Method Room Air Oxygen Flow Rate 07/02/23 02:00 07/02/23 02:00 07/02/23 02:30 Temperature Pulse Rate 66 63 Respiratory Rate 18 Blood Pressure 194/83 H Pulse Oximetry 95 92 Oxygen Delivery Method Room Air Oxygen Flow Rate 07/02/23 02:30 07/02/23 03:10 Temperature 98 F Pulse Rate 68 Respiratory Rate 20 Blood Pressure 168/74 H 185/70 H Pulse Oximetry 94 Oxygen Delivery Method Oxygen Flow Rate 0 Oxygen Delivery Method Room Air Oxygen Flow Rate 0 Narrative Exam Narrative: Elderly female who appears chronically ill lying in hospital bed in no obvious distress HEENT-unremarkable Neck-no lymphadenopathy Lungs-clear good breath sounds Heart-regular rate and rhythm Abdomen-mildly distended, no bowel tones, no rebound or guarding Objective Imaging CT scan - abdomen: Radiologist's impression: PROCEDURE: CT ABDOMEN PELVIS W CON INDICATIONS: Abdominal distention and generalized discomfort TECHNIQUE: After the administration of intravenous contrast, axial sections acquired from the lung bases to the pubic symphysis. Coronal and sagittal reformats were performed. For radiation dose reduction, the following was used: automated exposure control, adjustment of mA and/or kV according to patient size. COMPARISON: [facility], CT, CT ABDOMEN PELVIS W CON, 03/29/2022, 11:37. FINDINGS: Image quality: Excellent. Lung bases: Right lower lobe alveolar opacity with air bronchograms. Small right pleural effusion. In the left lung is clear. Heart: No significant findings. ABDOMEN: Liver: No visible mass. Gallbladder: Distended with slight wall thickening. No visible calcifications. Biliary ducts: Mild diffuse intrahepatic biliary dilatation. Extrahepatic common duct is normal caliber. Pancreas: Moderate diffuse smooth pancreatic ductal dilatation. Spleen: Surgically absent. Adrenal Glands: No nodules. Kidneys and Ureters: Symmetric enhancement. No nephrolithiasis or hydronephrosis. No hydroureter. Right renal cyst. Stomach and Bowel: Proximal stomach is distended and filled with fluid. There is narrowing in the gastric body and the distal stomach is decompressed. There is small bowel obstruction with several dilated loops of fluid-filled small bowel in the lower abdomen and pelvis demonstrating air-fluid levels. There are several long segments of decompressed small bowel. There is 1 transition point in the left lower quadrant, series 2, image 50. Peritoneum: There is left pericolic gutter fluid. No free air. Ventral Wall: No hernias. Abdominal Nodes: No retroperitoneal or mesenteric adenopathy by size criteria. Vessels: The IVC is decompressed. Abdominal aorta is normal caliber. PELVIS: Pelvic Organs: Not well seen Bladder: Decompressed Pelvic Nodes: No enlarged lymph nodes. Miscellaneous: No hernias are seen. Bones: Right hip arthroplasty. Left lateral L4-5 laminectomy and disc spacer. Moderate dextroscoliosis. Diffuse demineralization. IMPRESSION: 1. Acute small bowel obstruction with a left lower quadrant transition point, likely adhesion. 2. Pancreaticobiliary ductal dilatation, potentially reactive. Correlate with LFTs to determine clinical significance. 3. Right lower lobe lung alveolar opacity with effusion. Possibly infectious or aspiration. 4. Findings called to Dr. Alberto in the emergency room at 102 hours. Labs 07/01/23 22:48 07/01/23 22:48 Labs: Laboratory Results - last 24 hr 07/01/23 22:48 WBC 8.7 RBC 3.92 L Hgb 12.2 Hct 37.3 MCV 95.2 MCH 31.0 MCHC 32.6 RDW 13.8 Plt Count 239 Neut % (Auto) 73.6 Lymph % (Auto) 15.4 L [place] % (Auto) 8.6 Eos % (Auto) 1.5 L Baso % (Auto) 0.9 Neut # (Auto) 6400 Lymph # (Auto) 1300 [place] # (Auto) 800 Eos # (Auto) 100 Baso # (Auto) 100 Sodium 136 L Potassium 4.8 Chloride 103 Carbon Dioxide 22 BUN 35 H Creatinine 0.98 Estimated GFR 58 L BUN/Creatinine Ratio 35.7 H Glucose 132 H Calcium 9.5 Total Bilirubin 0.4 AST 31 ALT 18 Alkaline Phosphatase 113 Total Protein 8.6 H Albumin 4.2 Globulin 4.4 H Albumin/Globulin Ratio 1.0 Lipase 174 Assessment & Plan Assessment & Plan narrative: 1. Small-bowel obstruction-appears to be due to adhesions based on CT imaging and radiology interpretation. I would also be concerned of the possibility of recurrent carcinoma causing her symptoms. However at this point it seems appropriate to monitor her while NPO with IV fluids antiemetics. NG decompression of her stomach also makes sense given the degree of distention described by ER physician. However she is had no output from the NG and it may well be able to be removed later this morning after she is been seen by surgery. Surgery has been consulted. I believe this particular situation carries with it a slightly higher than average risk of need for surgical intervention, but will follow along conservatively to begin with 2. Hypertension-patient with significant hypertension and we frankly tolerate some degree of hypertension over time because of intolerance to medication. She is now going to be NPO and off of the medications that she is tolerated and have been helpful for her blood pressure. I am going to employ topical nitrates in the form of nitroglycerin ointment as well as scheduled parental metoprolol in effort to control her blood pressure to some degree anyway. 3. Question pneumonia-nonspecific changes on plain film imaging of her chest. She is completely asymptomatic with normal vital signs including oximetry. She had no emesis as part of her presentation so I think very low if any risk for aspiration. Will continue to monitor for now without treatment 4. VTE prophylaxis-if patient is not improving does not go to surgery in the next 24 hours consider Lovenox but for now use SCDs given my concern that she will require surgical intervention. However would start Lovenox tomorrow if not headed for the OR. 5. Code status-patient's previous expressed wishes for no resuscitation in the event of a sudden cardiac or respiratory arrest which is not anticipated. This is verified with her at this time. 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 This is part of her decision-making now as it was previously.
[2023-07-02] MEDS: ONDANSETRON 4 MG/2 ML INJ IV (06:46)
--- NOTE | 2023-07-02 07:11 | PC.NURSE ---
IT ADMINISTRATOR Patient had a total of 4 BM during passenger solicitor. Notified Night time provider Pt had an increase in pain and requested 10mg Oxy.
[2023-07-02] MEDS: HYDROMORPHONE 0.5 MG INJ IV (08:34)
[2023-07-02] MEDS: diphenhydrAMINE 50 MG/ML VIAL 25 MG IV (08:34)
[2023-07-02] MEDS: NITROGLYCERIN OINT 1 INCH/GM OINT...G. TOP ×2 (09:08→16:21)
[2023-07-02] MEDS: HYDROMORPHONE 0.5 MG INJ 1 MG IV (13:20)
--- NOTE | 2023-07-02 13:26 | PM.CN ---
History of Present Illness Consult details Date Patient Seen: 07/02/23 Time Patient Seen: 13:26 Chief complaint: abd pain on fire! Reason for consult: SBO Requesting provider: Naldo Alberto Narrative: Abdominal pain started yesterday, is cramping and wave like of upper abdomen. No flatus, NGT has minimal output. Last BM was yesterday morning. Meds Home Medications and Allergies Home Medications Medication Instructions Recorded Confirmed Type acetaminophen 325 mg capsule 650 mg (2 x 325 mg) PO QID PRN 05/22/21 07/02/23 Rx (Tylenol) pain #60 caps prochlorperazine maleate 10 mg 10 mg PO Q6H PRN Nausea 05/26/21 07/02/23 History tablet (Compazine) furosemide 20 mg tablet 40 mg (2 x 20 mg) PO DAILY #180 04/12/23 07/02/23 Rx tabs bevacizumab 25 mg/mL intravenous 25 mg IV QMONTH 05/14/23 07/02/23 History solution (Avastin) carvedilol phosphate 40 mg See Rx Instructions PO DAILY 05/14/23 07/02/23 History capsule,[id number] multiphase gabapentin 100 mg capsule 200 mg PO DAILY 05/14/23 07/02/23 History mirabegron 25 mg tablet,extended 25 mg PO DAILY 05/14/23 07/02/23 History release 24 hr (Myrbetriq) telmisartan 40 mg tablet 40 mg PO BID 05/14/23 07/02/23 History felodipine 2.5 mg tablet,extended 2.5 mg PO DAILY #90 tabs 06/28/23 07/02/23 Rx release 24 hr Allergies Allergy/AdvReac Type Severity Reaction Status Date / Time latex [LATEX] Allergy Intermediate RASH Verified 05/14/23 15:40 amoxicillin Allergy Mild ITCHING/CALIN Verified 05/14/23 15:40 H azithromycin [AZITHROMYCIN] Allergy Mild HIVES Verified 05/14/23 15:40 Penicillins [PENICILLINS] Allergy Mild RASH/ITCHIN Verified 05/14/23 15:40 G hydralazine AdvReac Severe hives Verified 05/14/23 15:40 minoxidil AdvReac Intermediate severe leg Verified 05/14/23 15:40 edema and symptomatic hypotension spironolactone AdvReac Intermediate hyperkalemi Verified 05/14/23 15:40 a HENRY Inhibitors AdvReac Mild COUGH Verified 05/14/23 15:40 [HENRY INHIBITORS] Review of Systems Review of Systems ROS: Yes All systems reviewed with the patient and are negative except as otherwise documented Exam Vital Signs (past 8 hours): - 07/02/23 07:00 07/02/23 08:34 07/02/23 09:08 Temperature 97.8 F Pulse Rate 70 70 Respiratory Rate 17 Blood Pressure 168/70 H 168/70 H Pulse Oximetry 96 96 Oxygen Delivery Method Room Air Oxygen Flow Rate 0 07/02/23 12:18 Temperature 98.4 F Pulse Rate 80 Respiratory Rate 17 Blood Pressure 146/63 H Pulse Oximetry 97 Oxygen Delivery Method Oxygen Flow Rate 0 Oxygen Delivery Method Room Air Oxygen Flow Rate 0 Const General: cooperative and frail appearing Nutritional Appearance: cachectic and malnourished Orientation: alert, awake and oriented x3 HENMT Head: normocephalic and atraumatic Eyes Periorbital: periorbital findings normal Sclera: sclerae normal Neck Neck: trachea midline and No JVD Chest Chest: normal inspection of the chest Other: port a cath Right upper chest, skin is thin but intact. Resp Effort & Inspection: normal respiratory effort, able to speak in complete sentences and normal respiratory pattern Cardio Rate: tachycardic Rhythm: regular rhythm GI Inspection: scaphoid Palpation: firm, No guarding, No rigid and No tender Skin General: atrophy, No jaundice and pallor Neuro General: patient alert, patient awake and patient oriented x3 Cranial Nerves: tongue midline Cognition: normal cognition Psych Appearance: grossly normal Mental Status: mental status grossly normal Judgment: judgment good Objective Labs 07/01/23 22:48 07/01/23 22:48 Labs: Laboratory Results - last 24 hr 07/01/23 22:48 WBC 8.7 RBC 3.92 L Hgb 12.2 Hct 37.3 MCV 95.2 MCH 31.0 MCHC 32.6 RDW 13.8 Plt Count 239 Neut % (Auto) 73.6 Lymph % (Auto) 15.4 L [place] % (Auto) 8.6 Eos % (Auto) 1.5 L Baso % (Auto) 0.9 Neut # (Auto) 6400 Lymph # (Auto) 1300 [place] # (Auto) 800 Eos # (Auto) 100 Baso # (Auto) 100 Sodium 136 L Potassium 4.8 Chloride 103 Carbon Dioxide 22 BUN 35 H Creatinine 0.98 Estimated GFR 58 L BUN/Creatinine Ratio 35.7 H Glucose 132 H Calcium 9.5 Total Bilirubin 0.4 AST 31 ALT 18 Alkaline Phosphatase 113 Total Protein 8.6 H Albumin 4.2 Globulin 4.4 H Albumin/Globulin Ratio 1.0 Lipase 174 [facility] Medical History Symptomatic anemia Port-A-Cath in place Scoliosis Arthritis Pulmonary nodule Fallopian tube carcinoma Essential hypertension Surgical History Status post hip hemiarthroplasty (04/01/22) History of lung biopsy (2016) S/P total abdominal hysterectomy and bilateral salpingo-oophorectomy (~2013) History of partial pancreatectomy Status post exploratory laparotomy Status post splenectomy (2015) Social History household members: spouse Tobacco & Substance Use Smoking Status: Former smoker alcohol intake: former Assessment & Plan Assessment & Plan narrative: SBO with minimal NGT output since placed. Anemia h/o fallopian tube cancer Multiple abdominal surgeries malnutrition Abnormal Chest CT with consolidation on the right w/o clinical evidence of pneumonia Plan: Continue bowel rest with NGT Gastrografin challenge Time Spent With Patient Time with patient: 30 to 49 minutes with 50% spent counseling/coordinating care
--- NOTE | 2023-07-02 13:49 | CM.DANOTE ---
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 Patient lives w/spouse who requires assist with all ADLs r/t h/o stroke. Caregivers from [facility] have been looking after spouse while patient admitted. Patient/spouse have adult children that live out of state. Patient appears insulted when this HAND SCRAPER suggests adult children assist during time of vulnerability. Patient has been receiving chemo at for 9 years and has been going once a month recently, patient denies ill effects from chemo. Patient independent at her baseline, cooks and drives. Patient denies needs from this HAND SCRAPER, anticipates returning home upon discharge. Plan: Anticipate patient will return home upon discharge, via friend to transport. Patient may benefit from HH services if agreeable. [facility] to assist patient and her spouse as needed. CM team will plan to follow closely in case any DC needs or concerns arise. CHIKIS Valencia Discharge Planning/Care Management CM Discharge Assessment Start: 07/02/23 13:45 Freq: Status: Active Protocol: Document 07/02/23 13:45 STEVIE (Rec: 07/02/23 13:49 STEVIE [id number]) Discharge Planning Assessment Assigned Tailings Worker CHIKIS Weeks DPOA/Assigned Designee Name Estrada Schmid, spouse Contact Information [phone] Advance Directives? Yes Advance Directives on File Yes History Provided By Patient,Medical Record Prior Living Arrangements House Household Members spouse Type of transporation used prior to Drives own vehicle admit Independent with ADL's Yes Is patient alert and oriented? Yes Comment [facility] for spouse while patient admitted Patient/Family Preference Home with Home Health Barriers to Discharge Yes Comment Although patient is quite fragile, anticipate she will want to return home as she is the primary caregiver for her spouse, HH and in home caregivers available through [facility] Discharge Plan Home Transportation Arrangement Friend Referrals Initiated None needed Additional Comment At this time. HH may be helpful if patient is agreeable Whiteboard Updated in Patient Room with Yes name and ext. # of Tailings Worker
[2023-07-02] MEDS: HYDROMORPHONE 2 MG INJ IV ×2 (16:15→20:27)
--- NOTE | 2023-07-02 19:21 | PC.NURSE ---
At shift change patient vomiting clear spit phlegm but wrenching caused NGT to become dislodged and removed. MD Gudino notified and ok'd to leave out.
[2023-07-02] MEDS: PROCHLORPERAZINE 10 MG/2 ML VIAL IV (20:26)
[2023-07-03] VITALS (18 sets, daily range): BP systolic 108–184; BP diastolic 59–93; PULSE 68–159; RESP 16–25; TEMP 36.3–37.3; O2SAT 90–94
[2023-07-03] MEDS: METOPROLOL TARTRATE 5 MG/5 ML INJ IV ×2 (02:53→09:29)
[2023-07-03] MEDS: PROCHLORPERAZINE 10 MG/2 ML VIAL IV ×2 (03:32→18:13)
[2023-07-03] MEDS: HYDROMORPHONE 2 MG INJ IV ×2 (03:32→23:03)
[2023-07-03 06:17] LABS: Hematocrit 35.6 % (36-46); Hemoglobin 11.6 g/dL (12.0-16.0); Mean Corpuscular HGB Conc 32.7 % (30-36); Mean Corpuscular Hemoglobin 31.3 PG (26-34); Mean Corpuscular Volume 95.8 fL (80-100); Platelet Count 180 X10^3/uL (150-400); Red Blood Cell Count 3.72 X10^6/uL (4.0-5.2); Red Cell Distribution Width 13.9 % (11.6-14.8); White Blood Cell Count 7.1 X10^3/uL (4.5-11.0)
[2023-07-03 06:18] LABS: BUN Creatinine Ratio 16.7 (6-22); Blood Urea Nitrogen 30 mg/dL (7-17); Calcium 9.2 mg/dL (8.4-10.2); Carbon Dioxide 25 mmol/L (22-32); Chloride 107 mmol/L (98-107); Estimated Glomerular Filt Rate 28 mL/min (>60); Glucose 144 mg/dL (80-110); HEMOLYSIS < 15 (0-50); Potassium 4.6 mmol/L (3.4-5.1); Sodium 140 mmol/L (137-145)
[2023-07-03 06:22] LABS: Add Manual Diff / Slide Review YES
[2023-07-03] MEDS: DEXTROSE 5%-LACTATED RINGERS 1,000 ML 100 ML IV ×2 (06:44→19:27)
[2023-07-03 07:43] LABS: Neutrophils Absolute Manual 6177 /uL (3000-5900); Poikilocytosis 1+; Total Cells Counted 100
--- NOTE | 2023-07-03 08:57 | DI.RAD.S_ITS ---
PROCEDURE: XR ABDOMEN 1V INDICATIONS: gastrografin challenge TECHNIQUE: Supine 1 view abdomen radiograph acquired. COMPARISON: [facility], CR, XR GASTROGRAFIN CHALLENGE, 07/02/2023, 17:37. [facility], CT, CT ABDOMEN PELVIS W CON, 07/01/2023, 23:26. FINDINGS: Surgical changes and devices: Left lumbar fixation. Right hip prosthesis. Anchors within the left trochanter. Bowel: Oral contrast is within a distended stomach and small bowel. Contrast is seen within the proximal colon. Soft tissues: No suspicious abdominal calcifications. Visualized solid organ contours appear normal in size. Bones: No suspicious bony lesions. IMPRESSION: Gastrografin is seen within the right side of the colon, similar to comparison. Dictated by: Blue Ordonez M.D. on 07/03/2023 at 8:56 Approved by: Blue Ordonez M.D. on 07/03/2023 at 9:00
[2023-07-03] MEDS: NITROGLYCERIN OINT 1 INCH/GM OINT...G. TOP ×2 (09:29→15:37)
--- NOTE | 2023-07-03 10:33 | DI.RAD.S_ITS ---
PROCEDURE: XR CHEST 1V INDICATIONS: hypoxia TECHNIQUE: One view of the chest was acquired. COMPARISON: [facility], CR, XR CHEST 1V, 07/02/2023, 4:53. FINDINGS: Surgical changes and devices: Right chest port with tip within the right atria. Chain sutures within the left lower lobe. Lumbar fixation partially visualized. Lungs and pleura: Right middle lobe and right basilar opacities relatively unchanged. Curvilinear left basilar opacities likely reflecting atelectasis. No pleural effusions or pneumothorax. Mediastinum: Mediastinal contours appear normal. Heart size is normal. Bones and chest wall: No suspicious bony lesions. Overlying soft tissues appear unremarkable. IMPRESSION: Persistent opacities within the right middle and right lower lobes. Opacities of the left lower lobe are favored to represent atelectasis. Dictated by: Blue Ordonez M.D. on 07/03/2023 at 10:19 Approved by: Blue Ordonez M.D. on 07/03/2023 at 10:22
--- NOTE | 2023-07-03 10:34 | PM.PN.1 ---
Subjective Subjective Date Patient Seen: 07/03/23 Time Patient Seen: 10:34 Interval history: Pt this morning reports that her pain is well controlled on the pain medication. She passed a small amount of flatus yesterday, but none yet this morning. She did have a small episode of emesis last night after trying an ice chip. Her NG tube fell out at that time, and was not replaced. The pt denies any chest pain or SOB. She does have a significant oxygen requirement at this time, however. She denies any fevers. She chronically feels chilled. Exam Vital Signs (past 8 hours): - 07/03/23 03:32 07/03/23 04:18 07/03/23 08:00 Temperature 99.2 F 98.9 F Pulse Rate 74 68 70 Respiratory Rate 18 Blood Pressure 178/80 H 184/79 H 140/62 Pulse Oximetry 91 90 L Oxygen Delivery Method Oxygen Flow Rate 6 10 07/03/23 09:29 07/03/23 10:02 07/03/23 10:02 Temperature Pulse Rate 84 Respiratory Rate Blood Pressure 164/59 H Pulse Oximetry 91 Oxygen Delivery Method Oximask Oximask Oxygen Flow Rate 8 07/03/23 10:24 Temperature Pulse Rate Respiratory Rate Blood Pressure Pulse Oximetry 93 Oxygen Delivery Method Oximask Oxygen Flow Rate Oxygen Delivery Method Oximask Oxygen Flow Rate 8 Narrative Exam Narrative: Gen: NAD, sitting comfortably in bed, speaking easily in complete sentences CV: RRR, no murmurs Resp: clear to auscultation bilaterally, no wheezes or crackles, decreased air movement throughout Abd: hypoactive bowel sounds, firm to palpation without discrete tenderness, no rebound/guarding Ext: no edema Objective Labs 07/03/23 05:38 07/03/23 05:38 Labs: Laboratory Results - last 24 hr 07/03/23 05:38 WBC 7.1 RBC 3.72 L Hgb 11.6 L Hct 35.6 L MCV 95.8 MCH 31.3 MCHC 32.7 RDW 13.9 Plt Count 180 Neut % (Auto) Not Reportable Lymph % (Auto) Not Reportable Cassia % (Auto) Not Reportable Eos % (Auto) Not Reportable Baso % (Auto) Not Reportable Lymph # (Auto) Not Reportable Cassia # (Auto) Not Reportable Baso # (Auto) Not Reportable Total Counted 100 Seg Neutrophils % 50.0 Band Neutrophils % 37.0 H Lymphocytes % (Manual) 5.0 L Monocytes % (Manual) 6.0 Eosinophils % (Manual) 1.0 L Metamyelocytes % 1.0 H Neutrophils # (Manual) 6177 H RBC Morphology Not Reportable Poikilocytosis 1+ H Sodium 140 Potassium 4.6 Chloride 107 Carbon Dioxide 25 BUN 30 H Creatinine 1.80 H Estimated GFR 28 L BUN/Creatinine Ratio 16.7 Glucose 144 H Calcium 9.2 PFSH Medical History Symptomatic anemia Port-A-Cath in place Scoliosis Arthritis Pulmonary nodule Fallopian tube carcinoma Essential hypertension Surgical History Status post hip hemiarthroplasty (04/01/22) History of lung biopsy (2016) S/P total abdominal hysterectomy and bilateral salpingo-oophorectomy (~2013) History of partial pancreatectomy Status post exploratory laparotomy Status post splenectomy (2015) Social History household members: spouse Smoking Status: Former smoker alcohol intake: former Assessment & Plan Assessment & Plan narrative: Pt is an 83 year old woman with fallopian tube carcinoma, HTN who presented with abdominal pain found to have small bowel obstruction. 1) Small bowel obstruction: Likely due to adhesions with hx of multiple abdominal surgeries, however also consider recurrent carcinoma. Pt with small episode of emesis after ice chips last night. Gastrografin study completed. - Surgery consulted, appreciate recommendations and care - Continue NPO for now - Do not need to replace NG tube for now - Repeat xray to 4pm to further evaluate - Pain adequately controlled with IV Dilaudid 2) HTN: BP elevated above goal currently - Holding home medications due to NPO - Increase IV Metoprolol to 10mg q6hr 3) Hypoxia: New onset. No fever, tachycardia, elevated WBC count. Has been receiving IVF, but no known significant CHF/cardiomyopathy. Prior CXR with questionable consolidation. - Repeat CXR this morning. If right consolidation remains present, will initiate antibiotics for CAP. FEN: NPO as above DVT ppx: SCDs Code: DNR, confirmed at admission Dispo: Pending stabilization of bowel function. Anticipate at least 2-3 additional days.
--- NOTE | 2023-07-03 11:33 | P.PN_ITS ---
Subjective Subjective Date Patient Seen: 07/03/23 Time Patient Seen: 11:33 Interval history: No flatus or BM, pain remains and is 8/10 in waves when it happens. No nausea. NGT fell out last night. Exam Vital Signs (past 8 hours): - 07/03/23 04:18 07/03/23 08:00 07/03/23 09:29 Temperature 99.2 F 98.9 F Pulse Rate 68 70 84 Respiratory Rate 18 Blood Pressure 184/79 H 140/62 164/59 H Pulse Oximetry 91 90 L Oxygen Delivery Method Oxygen Flow Rate 6 10 07/03/23 10:02 07/03/23 10:02 07/03/23 10:24 Temperature Pulse Rate Respiratory Rate Blood Pressure Pulse Oximetry 91 93 Oxygen Delivery Method Oximask Oximask Oximask Oxygen Flow Rate 8 Oxygen Delivery Method Oximask Oxygen Flow Rate 8 Narrative Exam Narrative: distended, firm, no acute abdomen. Objective Labs 07/03/23 05:38 07/03/23 05:38 Labs: Laboratory Results - last 24 hr 07/03/23 05:38 WBC 7.1 RBC 3.72 L Hgb 11.6 L Hct 35.6 L MCV 95.8 MCH 31.3 MCHC 32.7 RDW 13.9 Plt Count 180 Neut % (Auto) Not Reportable Lymph % (Auto) Not Reportable Bonner % (Auto) Not Reportable Eos % (Auto) Not Reportable Baso % (Auto) Not Reportable Lymph # (Auto) Not Reportable Bonner # (Auto) Not Reportable Baso # (Auto) Not Reportable Total Counted 100 Seg Neutrophils % 50.0 Band Neutrophils % 37.0 H Lymphocytes % (Manual) 5.0 L Monocytes % (Manual) 6.0 Eosinophils % (Manual) 1.0 L Metamyelocytes % 1.0 H Neutrophils # (Manual) 6177 H RBC Morphology Not Reportable Poikilocytosis 1+ H Sodium 140 Potassium 4.6 Chloride 107 Carbon Dioxide 25 BUN 30 H Creatinine 1.80 H Estimated GFR 28 L BUN/Creatinine Ratio 16.7 Glucose 144 H Calcium 9.2 PFSH Medical History Symptomatic anemia Port-A-Cath in place Scoliosis Arthritis Pulmonary nodule Fallopian tube carcinoma Essential hypertension Surgical History Status post hip hemiarthroplasty (04/01/22) History of lung biopsy (2016) S/P total abdominal hysterectomy and bilateral salpingo-oophorectomy (~2013) History of partial pancreatectomy Status post exploratory laparotomy Status post splenectomy (2015) Social History household members: spouse Smoking Status: Former smoker alcohol intake: former Assessment & Plan Assessment & Plan narrative: Abd Xray reading is that the contrast passed into colon. I suspect it has not yet passed the transition point given her clinical condition. Will give until this afternoon to have BM or flatus, repeat film at 4 pm. Don't replace the NGT just yet. Patient request that Dr. Kristy Ortega gynonc surgeon at [facility] be aware of her hospitalization. Time Spent With Patient Time with patient: 30 to 49 minutes with 50% spent counseling/coordinating care
[2023-07-03] MEDS: cefTRIAXone 1,000 MG in SODIUM CHLORIDE 0.9% 100 ML 200 MG IV (12:14)
[2023-07-03] MEDS: ONDANSETRON 4 MG/2 ML INJ IV ×2 (12:43→23:03)
[2023-07-03] MEDS: HYDROMORPHONE 0.5 MG INJ 1 MG IV ×2 (12:44→18:12)
[2023-07-03] MEDS: DOXYCYCLINE 100 MG in SODIUM CHLORIDE 0.9% 100 ML IV (13:35)
--- NOTE | 2023-07-03 16:00 | DI.RAD.S_ITS ---
PROCEDURE: XR ABDOMEN 1V INDICATIONS: gastrografin challenge TECHNIQUE: One view of the abdomen acquired. COMPARISON: [facility], CT, CT ABDOMEN PELVIS W CON, 07/01/2023, 23:26. [facility], CR, XR ABDOMEN 1V, 07/03/2023, 9:02. FINDINGS: Surgical changes and devices: None. Bowel: No significant change. The large majority of water-soluble contrast remains in dilated small bowel. There is some contrast which has begun to enter the right colon. Soft tissues: No suspicious abdominal calcifications. Visualized solid organ contours appear normal in size. Bones: No suspicious bony lesions. IMPRESSION: Small-bowel obstruction. Dictated by: Rajendra Evangelista M.D. on 07/03/2023 at 16:29 Approved by: Rajendra Evangelista M.D. on 07/03/2023 at 16:31
[2023-07-03] MEDS: METOPROLOL TARTRATE 5 MG/5 ML INJ 10 MG IV ×3 (16:44→19:55)
[2023-07-03] MEDS: dilTIAZem 5 MG/ML SDV 10 MG IV ×2 (20:17→21:46)
--- NOTE | 2023-07-03 23:17 | PC.NURSE ---
Notified by ICU nurse @ approximately 1915 that patient's HR was high (160's), patient is AxOx4, denies chest pain, SOB, nausea; Scheduled IV Metoprolol given, HR remained in the 150's-160's. EKG done which showed rapid afib, MD Ng notified, another 10 mg IV Metoprolol ordered and given, HR remained unchanged. MD Ng notified again @ approximately 1999, 10 mg IV Diltiazem ordered and given; HR decreased to 90's briefly, then went back up to 110's-120's, MD Ng ordered to continue tele monitoring & notify when HR increases >140's. Received call from MD Ng @ approximately 2130, 10 mg IV Diltiazem ordered and given; HR is currently remaining in the 110's-120's. Tele monitoring in place. Medications given as ordered (see MAR)
[2023-07-04] VITALS (52 sets, daily range): BP systolic 77–155; BP diastolic 42–96; PULSE 82–145; RESP 0–22; TEMP 36.1–37; O2SAT 78–99
[2023-07-04] MEDS: DOXYCYCLINE 100 MG in SODIUM CHLORIDE 0.9% 100 ML IV ×2 (00:31→17:25)
[2023-07-04] MEDS: HYDROMORPHONE 0.5 MG INJ 1 MG IV (04:06)
[2023-07-04] MEDS: PROCHLORPERAZINE 10 MG/2 ML VIAL IV ×2 (04:06→11:16)
[2023-07-04] MEDS: METOPROLOL TARTRATE 5 MG/5 ML INJ 10 MG IV ×2 (04:24→10:10)
[2023-07-04] MEDS: DEXTROSE 5%-LACTATED RINGERS 1,000 ML 100 ML IV (06:53)
--- NOTE | 2023-07-04 07:10 | DI.RAD.S_ITS ---
PROCEDURE: XR ABDOMEN 1V INDICATIONS: free air TECHNIQUE: One view of the abdomen acquired. COMPARISON: [facility], CR, XR ABDOMEN 1V, 07/03/2023, 15:50. [facility], CR, XR ABDOMEN 1V, 07/03/2023, 9:02. FINDINGS: Surgical changes and devices: None. Bowel: Significant distention of small bowel with water-soluble contrast. Soft tissues: No suspicious abdominal calcifications. Visualized solid organ contours appear normal in size. Bones: No suspicious bony lesions. IMPRESSION: Similar distended loops of small bowel with oral contrast. No large volume free air. Note: Supine radiograph does not reliably detect small amounts of pneumoperitoneum. Dictated by: Tay Frank M.D. on 07/04/2023 at 7:57 Approved by: Tay Frank M.D. on 07/04/2023 at 7:58
[2023-07-04] MEDS: HYDROMORPHONE 2 MG INJ IV ×2 (07:27→11:17)
[2023-07-04] MEDS: NITROGLYCERIN OINT 1 INCH/GM OINT...G. TOP (08:15)
--- NOTE | 2023-07-04 08:29 | DI.RAD.S_ITS ---
PROCEDURE: XR CHEST 1V INDICATIONS: new afib TECHNIQUE: One view of the chest was acquired. COMPARISON: [facility], CR, XR CHEST 1V, 07/03/2023, 10:41. [facility], CR, XR CHEST 1V, 07/02/2023, 4:53. FINDINGS: Surgical changes and devices: Right chest wall port tip projects over the high right atrium. Lungs and pleura: Similar right lower lobe airspace opacity with right pleural effusion. Developing left middle lung zone opacity. Stable left middle lung zone nodularity. Mediastinum: Mediastinal contours appear normal. Heart size is normal. Bones and chest wall: No suspicious bony lesions. Overlying soft tissues appear unremarkable. IMPRESSION: Similar right basilar airspace opacity with pleural effusion. Developing left middle lung zone opacity, concerning for infection. Dictated by: Tay Frank M.D. on 07/04/2023 at 9:31 Approved by: Tay Frank M.D. on 07/04/2023 at 9:32
[2023-07-04 08:36] LABS: Add Manual Diff / Slide Review NO; Basophils Absolute Auto 100 /uL (0-100); Basophils Percent Auto 0.3 % (0-2); Eosinophils Absolute Auto 0 /uL (0-450); Hemoglobin 10.7 g/dL (12.0-16.0); Lymphocytes Absolute Auto 500 /uL (1100-4500); Lymphocytes Percent Auto 2.6 % (25-40); Mean Corpuscular HGB Conc 32.5 % (30-36); Mean Corpuscular Volume 95.3 fL (80-100); Monocytes Absolute Auto 800 /uL (0-900); Monocytes Percent Auto 4.4 % (3-14); Neutrophils Absolute Auto 16800 /uL (1500-7000); Neutrophils Percent Auto 92.7 % (50-75); Platelet Count 152 X10^3/uL (150-400); Red Blood Cell Count 3.46 X10^6/uL (4.0-5.2); Red Cell Distribution Width 13.9 % (11.6-14.8); White Blood Cell Count 18.1 X10^3/uL (4.5-11.0)
[2023-07-04 08:47] LABS: Alanine Aminotransferase 17 IU/L (<35); Albumin 3.5 g/dL (3.5-5.0); Alkaline Phosphatase 64 U/L (38-126); Aspartate Aminotransferase 36 IU/L (14-36); BUN Creatinine Ratio 22.7 (6-22); Bilirubin Total 0.5 mg/dL (0.2-1.3); Blood Urea Nitrogen 44 mg/dL (7-17); Calcium 9.2 mg/dL (8.4-10.2); Carbon Dioxide 26 mmol/L (22-32); Chloride 109 mmol/L (98-107); Estimated Glomerular Filt Rate 26 mL/min (>60); Globulin 3.5 g/dL (1.7-4.1); Glucose 144 mg/dL (80-110); HEMOLYSIS 38 (0-50); Magnesium 2.5 mg/dL (1.6-2.3); Potassium 4.9 mmol/L (3.4-5.1); Sodium 142 mmol/L (137-145)
[2023-07-04 09:45] LABS: Free T4, Direct Thyroxine 1.07 ng/dL (0.78-2.19)
--- NOTE | 2023-07-04 09:58 | P.PN_ITS ---
Subjective Subjective Date Patient Seen: 07/04/23 Time Patient Seen: 09:20 Interval history: The pt reports that she is overall feeling okay this morning. Her pain remains well controlled with the narcotic pain medication, but she does have significant pain prior to dosing. She denies any chest pain. She denies any SOB, despite her ongoing oxygen requirement. Her primary complaint is how dry her mouth is. The pt went into atrial fibrillation with RVR last night, with HR up to the 150- 160s. She received her scheduled 10mg of Metoprolol without response. She then was given 10mg of IV Diltiazem x2, with her HR coming down to the 110-130s. The pt throughout this time period denied any chest pain or worsening SOB. Her BP remained stable. Exam Vital Signs (past 8 hours): - 07/04/23 04:06 07/04/23 06:00 07/04/23 08:15 Temperature Pulse Rate 135 H 115 H Respiratory Rate Blood Pressure 155/89 H 132/71 Pulse Oximetry 95 Oxygen Delivery Method Oxygen Flow Rate 8.5 07/04/23 08:57 07/04/23 09:15 Temperature 98.6 F Pulse Rate 134 H Respiratory Rate 18 Blood Pressure 132/71 Pulse Oximetry 92 92 Oxygen Delivery Method High Flow Nasal Cannula Oxygen Flow Rate 8 Oxygen Delivery Method High Flow Nasal Cannula Oxygen Flow Rate 8 Narrative Exam Narrative: Gen: NAD, sitting comfortably in bed, speaking easily in complete sentences CV: tachycardic, irregularly irregular rhythm, no murmurs Resp: mild crackles right lower lobe, left lobe clear to auscultation, no wheezes Abd: hypoactive bowel sounds, firm to palpation without discrete tenderness, no rebound/guarding Ext: no edema Objective Labs 07/04/23 08:30 07/04/23 08:30 Labs: Laboratory Results - last 24 hr 07/04/23 08:30 WBC 18.1 H D RBC 3.46 L Hgb 10.7 L Hct 33.0 L MCV 95.3 MCH 31.0 MCHC 32.5 RDW 13.9 Plt Count 152 Neut % (Auto) 92.7 H Lymph % (Auto) 2.6 L Caldwell % (Auto) 4.4 Eos % (Auto) 0.0 L Baso % (Auto) 0.3 Neut # (Auto) 53921 H Lymph # (Auto) 500 L Caldwell # (Auto) 800 Eos # (Auto) 0 Baso # (Auto) 100 Sodium 142 Potassium 4.9 Chloride 109 H Carbon Dioxide 26 BUN 44 H Creatinine 1.94 H Estimated GFR 26 L BUN/Creatinine Ratio 22.7 H Glucose 144 H Calcium 9.2 Magnesium 2.5 H Total Bilirubin 0.5 AST 36 ALT 17 Alkaline Phosphatase 64 Total Protein 7.0 Albumin 3.5 Globulin 3.5 Albumin/Globulin Ratio 1.0 TSH 15.30 H Free T4 1.07 PFSH Medical History Symptomatic anemia Port-A-Cath in place Scoliosis Arthritis Pulmonary nodule Fallopian tube carcinoma Essential hypertension Surgical History Status post hip hemiarthroplasty (04/01/22) History of lung biopsy (2016) S/P total abdominal hysterectomy and bilateral salpingo-oophorectomy (~2013) History of partial pancreatectomy Status post exploratory laparotomy Status post splenectomy (2015) Social History household members: spouse Smoking Status: Former smoker alcohol intake: former Assessment & Plan Assessment & Plan narrative: Pt is an 83 year old woman with fallopian tube carcinoma, HTN who presented with abdominal pain found to have small bowel obstruction. 1) Small bowel obstruction: Likely due to adhesions with hx of multiple abdominal surgeries, however also consider recurrent carcinoma. Persistent despite gastrografin study. WBC count increased significantly this morning, unclear if due to abdominal process vs pneumonia. - Surgery consulted, appreciate recommendations and care - Plan for exploratory laparotomy later today - NG tube placement - Initiate TPN after surgery - Pain adequately controlled with IV Dilaudid 2) Atrial fibrillation with RVR: New onset last night, no know hx of atrial fibrillation. No electrolyte abnormalities. Echo from 10/25/2019 showed normal EF. Likely precipitated by abdominal process/potentially stomach distention, pneumonia, and dehydration. Received IV Diltiazem 10mg x2 last night with HR response down to the 110-130s from 150-160s. Hemodynamically stable otherwise. - Cardiology consulted, Dr Villegas - IV Diltiazem drip to be initiated prior to surgery - Discussed with Dr Rivers, and Diltiazem drip can be continued intraoperatively - Echocardiogram ordered to be completed today - Hold anticoagulation for now due to pending surgery 3) Pneumonia with acute respiratory failure: Afebrile. WBC count increased this morning, questionable new consolidation on the left today. Started on Ceftriaxone and Doxycycline yesterday. O2 requirement currently at 8L via NC. - Continue oxygen support, titrate as needed - Continue Ceftriaxone and Doxycycline for now, may need to be expanded if not improving 4) HTN: BP remains stable to elevated - Holding home medications due to NPO - IV Metoprolol to 10mg q6hr, Nitropaste 5) Acute kidney injury: Most likely due to dehydration. - 500cc NS bolus - mIVF with 125cc/hr LR - Trend BMP - Place campos to monitor I/O 6) Hypothyroidism: TSH elevated to 15.3 with normal T4 - Hold potential treatment while NPO FEN: NPO as above DVT ppx: SCDs Code: DNR, confirmed at admission. Discussed case with Anesthesiology. Concerns regarding ability to extubate after surgery, with already present oxygen requirement. Discussed this with the patient. She is agreeable to remaining intubated after surgery, as long as her vital signs are stable and there is evidence of progression towards recovery. If there are not signs of improvement, the pt would like to be extubated to comfort care. More than 120 minutes spent in direct care of this pt, discussing plan and goals of care, coordinating with specialists and imaging technicians, documentation.
[2023-07-04] MEDS: SODIUM CHLORIDE 0.9% 500 ML 250 ML IV (10:22)
[2023-07-04] MEDS: DILTIAZEM 125 MG/125 ML PIGGYBACK IV ×2 (11:16→19:37)
--- NOTE | 2023-07-04 11:50 | DI.RAD.S_ITS ---
PROCEDURE: XR CHEST FOR PICC 1V INDICATIONS: PICC line placement COMPARISON: [facility], PRO, XR CHEST 1V, 07/04/2023, 9:05. [facility], PRO, XR CHEST 1V, 07/03/2023, 10:41. FINDINGS: PICC was placed by the intravenous therapy team from the right side. Fluoroscopic spot film demonstrates the tip of PICC projecting to the area of the cavoatrial junction. IMPRESSION: Tip of PICC projects to the area of the cavoatrial junction. Dictated by: Tay Frank M.D. on 07/04/2023 at 12:42 Approved by: Tay Frank M.D. on 07/04/2023 at 12:43
--- NOTE | 2023-07-04 12:00 | PM.PREOP ---
Pre-operative Note Interval Note History & Physical reviewed/Exam performed by Physician: Yes Changes to H&P: Yes H&P completed within 30 days and has changed as indicated here:: New onset Afib, getting ECHO, rise is O2 requirement and WBC concerning for aspiration. Will be placing NGT preop. PICC line placed and post op TPN ordered.
--- NOTE | 2023-07-04 12:18 | CM.DPNOTE ---
DCP Note Medical course has shifted this morning. Patient transferred to ICU w/increased WBC this morning. Patient w/ Pneumonia with acute respiratory failure according to Dr Ng's prog note. SBO which has not resolved, patient has left the floor for exploratory laparotomy now. Patient quite ill, CM team will plan to follow clinical course closely. Reassess discharge needs when appropriate. STEVIE
--- NOTE | 2023-07-04 12:34 | DI.ECHO.S_ITS ---
:Name: JUAN ANTONIO TREVIÑO Study Date: 07/04/2023 Height: 69 in : :Hospital ReadingLocation: Weight: 126 lb : : Gender: Female BSA: 1.7 m2 : :: 1940 Age: 83 yrs BP: 117/73 mmHg: :Reason For Study: AFIB : : Performed By: Perfecto Ramirez : :Referring: JOSEF SOUZA : + + Interpretation Summary The left ventricle is normal in size and wall thickness. The left ventricle is hyperdynamic. The ejection fraction is estimated to be 70-75%. There are no focal wall motion abnormalities. The right ventricle is normal in size and function. Right ventricular systolic pressure is estimated to be 28 mmHg plus the clinically estimated CVP which cannot be estimated on this exam. There is mild mitral regurgitation. There is moderate to severe tricuspid regurgitation. There is a trivial pericardial effusion noted. Procedure: A modified complete study was performed to assess LV function and valves prior to surgery. The patient had poor subcostals. According to her hospitalist she had consumed contrast which is noted in the subcostal image. The study quality was technically good. Comparison is made with the echocardiogram of 10/25/19. The patient was in atrial fibrillation with rapid ventricular response during the exam with a heart rate exceeding 100 bpm. The patient had a heart rate of 100-134 beats per minute. Left Ventricle: The left ventricle is normal in size and wall thickness. The left ventricle is hyperdynamic. The ejection fraction is estimated to be 70- 75%. There are no focal wall motion abnormalities. Diastolic function could not be accurately assessed due to atrial fibrillation. Right Ventricle: The right ventricle is normal in size and function. Mitral Valve: There is mild mitral annular calcification. There is mild mitral regurgitation. Aortic Valve: The aortic valve is trileaflet. The aortic valve is mildly calcified. Tricuspid Valve: The tricuspid valve leaflets are thin and pliable. There is moderate to severe tricuspid regurgitation. Right ventricular systolic pressure is estimated to be 28 mmHg plus the clinically estimated CVP which cannot be estimated on this exam. Great Vessels: The inferior vena cava was not well visualized. Pericardium/ Pleura There is a trivial pericardial effusion noted. MMode/2D Measurements & Calculations LVIDd: 3.5 cm TAPSE: 1.6 cm LVIDs: 2.5 cm FS: 29.1 % IVSd: 0.76 cm LVPWd: 0.83 cm LV thompson. diameter/BSA (cm/m^2): 2.1 LV sys. diameter/BSA (cm/m^2): 1.5 Doppler Measurements & Calculations TR max mauricio: 263.3 cm/sec TR max P.7 mmHg Reading Physician:01:47 PM
--- NOTE | 2023-07-04 13:48 | SUR.OPER ---
Supine on padded OR bed, head on pillow, arms secured on padded arm boards at <90 degrees abduction, legs uncrossed, safety belt at thigh, tape over blanket over lower legs.
--- NOTE | 2023-07-04 14:41 | P.OP_ITS ---
Operative Date/Time/Diagnoses Date of procedure: 07/04/23 Time of procedure: 14:41 Pre-op diagnosis: Small bowel obstruction Post-op diagnosis: same Procedure & Clinicians Procedure: Exploratory laparotomy with lysis of adhesions Same procedure as scheduled: Yes Indications: Small bowel obstruction Surgeon: Zayra Granados Anesthesia Type: General Operative Notes Findings: Single band adhesion in the pelvis corresponding to clear transition point Closure Type: primary Specimen(s): none sent Estimated Blood Loss (mL): 20 Blood products transfused: none Procedure in detail: Preop diagnosis: Small-bowel obstruction Postop diagnosis: Same Operative procedure: Exploratory laparotomy with lysis of adhesions Surgeon: Aleena Granados MD Anesthesiologist: Estrada Rivers MD Findings: Single band adhesion in the pelvis Procedure: Patient placed in a supine position. Prepped and draped sterile fashion to expose her abdomen. Lower midline incision was reopened through an old scar at which point I encountered mesh and what I presume maybe 8 abdominoplasty in the past. Small bowel was delivered into the surgical field and discovery of a single band adhesion which was lysed allowed it to plump up and function. Abdomen was closed with a running looped 0 PDS. Skin was closed with running 4- 0 Vicryl. Steri-Strips and sterile dressings were placed. Patient was taken straight to the ICU intubated, Alvarez catheter, NG tube in place. Condition stable Blood loss: 20 mL Specimen: None
[2023-07-04] MEDS: fentaNYL 1,000 MCG in DEXTROSE 5% IN WATER 230 ML 10.238 MCG IV (14:57)
[2023-07-04] MEDS: propofoL 1,000 MG/100 ML VIAL 8.7 MG IV (14:58)
[2023-07-04] MEDS: SODIUM CHLORIDE 0.9% 1,000 ML 125 ML IV (16:06)
[2023-07-04] MEDS: ALBUMIN HUMAN 50 GM/200 ML VIAL IV (16:06)
[2023-07-04 16:25] LABS: MRSA (Nasal) PCR DETECTED (Not Detect)
[2023-07-04] MEDS: propofoL 1,000 MG/100 ML VIAL 3.48 MG IV (16:32)
[2023-07-04] MEDS: cefTRIAXone 2,000 MG in SODIUM CHLORIDE 0.9% 100 ML 200 MG IV (16:34)
[2023-07-04 17:54] LABS: Add Manual Diff / Slide Review NO; Basophils Absolute Auto 0 /uL (0-100); Basophils Percent Auto 0.1 % (0-2); Eosinophils Absolute Auto 0 /uL (0-450); Eosinophils Percent Auto 0.1 % (2-4); Hematocrit 29.2 % (36-46); Hemoglobin 9.5 g/dL (12.0-16.0); Lymphocytes Absolute Auto 300 /uL (1100-4500); Lymphocytes Percent Auto 2.1 % (25-40); Mean Corpuscular HGB Conc 32.5 % (30-36); Mean Corpuscular Hemoglobin 31.1 PG (26-34); Mean Corpuscular Volume 95.9 fL (80-100); Monocytes Absolute Auto 700 /uL (0-900); Monocytes Percent Auto 4.1 % (3-14); Neutrophils Absolute Auto 15100 /uL (1500-7000); Neutrophils Percent Auto 93.6 % (50-75); Platelet Count 157 X10^3/uL (150-400); Red Blood Cell Count 3.05 X10^6/uL (4.0-5.2); Red Cell Distribution Width 13.7 % (11.6-14.8); White Blood Cell Count 16.2 X10^3/uL (4.5-11.0)
[2023-07-04] MEDS: AA 5 %/CALCIUM/LYTES/DEXT 20 % 1,000 ML with MULTIVITAMIN 10 ML, TRACE ELEMENTS 1 ML, T... 42.208 ML IV (18:47)
[2023-07-04] MEDS: PHENYLEPHRINE 20,000 MCG in DEXTROSE 5% IN WATER 250 ML 75 MCG IV (18:48)
--- NOTE | 2023-07-04 19:27 | P.TELICUCN_ITS ---
History of Present Illness Consult details IF CAMERA ACTIVATED, patient seen via real-time interactive audiovisual communication: Camera activated Chief complaint: abd pain on fire! Consent obtained for tele-die try out worker stamping care: Yes Patient Location: ICU Provider location (State): [place] Other participants/roles: RN Narrative: 83 year old woman, transferred to the ICU post op after ex-lap and lysis of adhesions for further management of vent, as she was not liberated post op. currently she is well sedated, on propofol and fentanyl but her BP was borderline post-op, and given albuin bolus to imrove map. PICC line in place for TPN PFSH Medical History Symptomatic anemia Port-A-Cath in place Scoliosis Arthritis Pulmonary nodule Fallopian tube carcinoma Essential hypertension Surgical History Status post hip hemiarthroplasty (04/01/22) History of lung biopsy (2016) S/P total abdominal hysterectomy and bilateral salpingo-oophorectomy (~2013) History of partial pancreatectomy Status post exploratory laparotomy Status post splenectomy (2015) Social History household members: spouse Smoking Status: Former smoker alcohol intake: former Current Medications Current Medications Medications: Home Medications acetaminophen 325 mg capsule (Tylenol) 650 mg (2 x 325 mg) PO QID PRN pain #60 caps 05/22/21 [Rx Confirmed 07/02/23] prochlorperazine maleate 10 mg tablet (Compazine) 10 mg PO Q6H PRN Nausea 05/26/21 [History Confirmed 07/02/23] furosemide 20 mg tablet 40 mg (2 x 20 mg) PO DAILY #180 tabs 04/12/23 [Rx Confirmed 07/02/23] bevacizumab 25 mg/mL intravenous solution (Avastin) 25 mg IV QMONTH 05/14/23 [History Confirmed 07/02/23] carvedilol phosphate 40 mg capsule,[id number] multiphase See Rx Instructions PO DAILY 05/14/23 [History Confirmed 07/02/23] gabapentin 100 mg capsule 200 mg PO DAILY 05/14/23 [History Confirmed 07/02/23] mirabegron 25 mg tablet,extended release 24 hr (Myrbetriq) 25 mg PO DAILY 05/14/23 [History Confirmed 07/02/23] telmisartan 40 mg tablet 40 mg PO BID 05/14/23 [History Confirmed 07/02/23] felodipine 2.5 mg tablet,extended release 24 hr 2.5 mg PO DAILY #90 tabs 06/28/23 [Rx Confirmed 07/02/23] Visit Medications (administered) Generic Name Dose Route Start Last Admin Trade Name Colin PRN Reason Stop Dose Admin Diphenhydramine HCl 25 mg 07/02/23 08:23 07/02/23 08:34 Diphenhydramine 50 Mg/Ml Vial IV 25 mg Q4HR PRN Administration Itching Hydromorphone HCl 1 mg 07/02/23 09:10 07/04/23 04:06 Hydromorphone 0.5 Mg Inj IV 1 mg Q2H PRN Administration Pain, Moderate (4-6) Hydromorphone HCl 2 mg 07/02/23 09:10 07/04/23 11:17 Hydromorphone 2 Mg Inj IV 2 mg Q2H PRN Administration Pain, Severe (7-10) DILTIAZEM 125 mg in 125 mls @ 5 mls/hr 07/04/23 10:15 07/04/23 17:09 Diltiazem 125 Mg/125 Ml-D5w IV 10 mg/hr TITRATE KASHMIR 10 mls/hr Titration Protocol 5 MG/HR Multivitamins 10 ml/ Chromium/ 1,013 mls @ 42.208 mls/hr 07/04/23 18:00 07/04/23 18:47 Copper/Manganese/Seleni/Zn 1 IV 07/05/23 17:59 42.208 mls/hr ml/ Thiamine HCl 100 mg/ 1800 KASHMIR Administration Famotidine 10 mg/ Amino Acids/ Electrolytes Fentanyl 1,000 mcg/ Dextrose 250 mls @ 10.238 mls/hr 07/04/23 14:15 07/04/23 14:57 IV 0.7 mcg/kg/hr TITRATE KASHMIR 10.238 mls/hr Administration Protocol 0.7 MCG/KG/HR Sodium Chloride 1,000 mls @ 125 mls/hr 07/04/23 15:30 07/04/23 16:06 Normal Saline 0.9% IV 125 mls/hr CONT KASHMIR Administration Ceftriaxone Sodium 2,000 mg/ 100 mls @ 200 mls/hr 07/04/23 16:00 07/04/23 17:05 Sodium Chloride IV Infused Q24H KASHMIR Infusion Doxycycline Hyclate 100 mg/ 100 mls @ 100 mls/hr 07/04/23 17:00 07/04/23 19:19 Sodium Chloride IV 07/08/23 16:59 Infused Q12H KASHMIR Infusion Propofol 1,000 mg in 100 mls @ 1.74 mls/hr 07/04/23 16:00 07/04/23 17:09 Propofol IV 15 mcg/kg/min TITRATE KASHMIR 5.22 mls/hr Titration Protocol 5 MCG/KG/MIN Phenylephrine HCl 20,000 mcg/ 250 mls @ 75 mls/hr 07/04/23 15:58 07/04/23 18:48 Dextrose IV 100 mcg/min TITRATE KASHMIR 75 mls/hr Administration Protocol 100 MCG/MIN Insulin Human Lispro 0 unit 07/04/23 18:00 07/04/23 18:07 Insulin Lispro 100 Unit/Ml 3ml Vial SUBCUT Not Given Q6H [facility] Protocol Metoprolol Tartrate 10 mg 07/03/23 10:45 07/04/23 18:06 Metoprolol Tartrate 5 Mg/5 Ml Inj IV Not Given Q6H [facility] Ondansetron HCl 4 mg 07/02/23 06:00 07/04/23 18:07 Ondansetron 4 Mg/2 Ml Inj IV Not Given Q6HR [facility] Prochlorperazine 10 mg 07/02/23 19:10 07/04/23 11:16 Prochlorperazine 10 Mg/2 Ml Vial IV 10 mg Q6HR PRN Administration Nausea Review of Systems Review of Systems Narrative: unable to obtain Exam Vital Signs (past 8 hours): - 07/04/23 11:30 07/04/23 12:00 07/04/23 12:00 Pulse Rate 142 H 135 H Respiratory Rate 16 21 Blood Pressure 117/73 Pulse Oximetry 87 L 86 L Oxygen Delivery Method 07/04/23 12:00 07/04/23 12:30 07/04/23 14:45 Pulse Rate 123 H 92 H Respiratory Rate 11 L Blood Pressure Pulse Oximetry 92 94 Oxygen Delivery Method High Flow Nasal Cannula Oximask 07/04/23 14:45 07/04/23 15:00 07/04/23 15:00 Pulse Rate 91 H Respiratory Rate 16 Blood Pressure 102/57 L 118/56 L Pulse Oximetry 99 Oxygen Delivery Method 07/04/23 15:15 07/04/23 15:15 07/04/23 15:30 Pulse Rate 95 H 95 H Respiratory Rate 16 16 Blood Pressure 111/59 L Pulse Oximetry 98 99 Oxygen Delivery Method 07/04/23 15:30 07/04/23 15:45 07/04/23 15:45 Pulse Rate 96 H Respiratory Rate 16 Blood Pressure 87/51 L 95/59 L Pulse Oximetry 94 Oxygen Delivery Method 07/04/23 16:00 07/04/23 16:00 07/04/23 16:00 Pulse Rate 96 H Respiratory Rate 16 Blood Pressure 77/42 L Pulse Oximetry 97 Oxygen Delivery Method Mechanical Ventilation 07/04/23 16:15 07/04/23 16:15 07/04/23 16:30 Pulse Rate 96 H 94 H Respiratory Rate 16 16 Blood Pressure 81/46 L Pulse Oximetry 95 96 Oxygen Delivery Method 07/04/23 16:30 07/04/23 16:45 07/04/23 16:45 Pulse Rate 87 Respiratory Rate 16 Blood Pressure 86/52 L 103/64 Pulse Oximetry 97 Oxygen Delivery Method 07/04/23 17:00 07/04/23 17:00 07/04/23 17:15 Pulse Rate 90 Respiratory Rate 16 Blood Pressure 97/51 L 88/50 L Pulse Oximetry 96 Oxygen Delivery Method 07/04/23 17:15 07/04/23 17:30 07/04/23 17:30 Pulse Rate 87 91 H Respiratory Rate 17 18 Blood Pressure 100/52 L Pulse Oximetry 97 97 Oxygen Delivery Method 07/04/23 17:45 07/04/23 17:45 07/04/23 18:00 Pulse Rate 87 Respiratory Rate 16 Blood Pressure 96/54 L 108/59 L Pulse Oximetry 97 Oxygen Delivery Method 07/04/23 18:00 07/04/23 18:15 07/04/23 18:15 Pulse Rate 84 92 H Respiratory Rate 22 16 Blood Pressure 89/50 L Pulse Oximetry 94 94 Oxygen Delivery Method 07/04/23 18:30 07/04/23 18:30 07/04/23 18:45 Pulse Rate 91 H 92 H Respiratory Rate 16 16 Blood Pressure 90/52 L Pulse Oximetry 97 98 Oxygen Delivery Method 07/04/23 18:45 07/04/23 19:00 07/04/23 19:00 Pulse Rate 89 Respiratory Rate 16 Blood Pressure 92/53 L 92/53 L Pulse Oximetry 98 Oxygen Delivery Method 07/04/23 19:15 07/04/23 19:15 Pulse Rate 90 Respiratory Rate 16 Blood Pressure 96/51 L Pulse Oximetry 97 Oxygen Delivery Method Oxygen Delivery Method Mechanical Ventilation Oxygen Flow Rate 8 Narrative Exam Narrative: intubated and sedated Resp Other: symmetric chest rise Cardio Other: NSR on monitor Objective Labs 07/04/23 17:45 07/04/23 08:30 Labs: Laboratory Results - last 24 hr 07/04/23 07/04/23 07/04/23 08:30 14:50 17:45 WBC 18.1 H D 16.2 H RBC 3.46 L 3.05 L Hgb 10.7 L 9.5 L Hct 33.0 L 29.2 L MCV 95.3 95.9 MCH 31.0 31.1 MCHC 32.5 32.5 RDW 13.9 13.7 Plt Count 152 157 Neut % (Auto) 92.7 H 93.6 H Lymph % (Auto) 2.6 L 2.1 L Ector % (Auto) 4.4 4.1 Eos % (Auto) 0.0 L 0.1 L Baso % (Auto) 0.3 0.1 Neut # (Auto) 43192 H 29093 H Lymph # (Auto) 500 L 300 L Ector # (Auto) 800 700 Eos # (Auto) 0 0 Baso # (Auto) 100 0 Sodium 142 Potassium 4.9 Chloride 109 H Carbon Dioxide 26 BUN 44 H Creatinine 1.94 H Estimated GFR 26 L BUN/Creatinine Ratio 22.7 H Glucose 144 H Calcium 9.2 Magnesium 2.5 H Total Bilirubin 0.5 AST 36 ALT 17 Alkaline Phosphatase 64 Total Protein 7.0 Albumin 3.5 Globulin 3.5 Albumin/Globulin Ratio 1.0 TSH 15.30 H Free T4 1.07 Nasal Screen MRSA (PCR) Detected H Assessment & Plan Assessment and plan (1) Small bowel obstruction: Status: Acute (2) Fallopian tube carcinoma: Problem details: Managed at [facility] [place] Qualifiers: Laterality: unspecified laterality Qualified Code(s): C57.00 - Malignant neoplasm of unspecified fallopian tube Status: Chronic (3) Acute respiratory failure: Status: Acute Plan vent/sedation bundle map goal >65 trend ABG LTVV NPO TPN trend bmp and monitor uo dvt ppx critical care time 35m in
--- NOTE | 2023-07-04 19:30 | PC.NURSE ---
1030 Pt moved from rm 222 to 230 due to need for Cardizem gtt, Dr Ng at bedside for new orders, pt is scheduled to go to OR for exp lap for SBO at 1130. Pt oriented to room and call light system, PICC line, Dilt gtt, ECHO, Campos, and NG tube ordered to be placed prior to pt going to surgery. Able to place PICC, and complete partial ECHO prior to surgery, Dr Granados states that the campos and NG tube will be placed in OR. 1100 Dilt gtt started see emar for dosing 1230 Dr Ng discussed with pt anesthesias concern that pt might need to return to the ICU intubated, pt states as long as it is for a short time and she is improving it is ok, please see Dr Ng's report for more information. 1300 Pt escorted to OR by Dr Rivers and Dr Granados, no further pt contact at this time 1345 Call from OR, pt to return to ICU intubated, eICU to be consulted 1435 Pt returned to room escorted by Dr Rivers and PERSONAL CARE WORKER, pt intubated and sedated with Propofol, ROCC and Ketamine, RT at bedside placed on vent settings FiO2 80% TV 360 RR 16 PEEP 5, New orders for fentanyl gtt, Propofol see emar for dosage. 1600 Contacted eICU, new orders placed, pt BP requiring pressure support, Albumin and Stoney started, Vent FiO2 changed to 50% Pt rouses to voice able to squeeze hand, RASS -1. 1800 Pt has limited urine output, Dr Ng notified, no new orders at this time, bed low and locked, no further needs at this time, will continue to monitor.
[2023-07-04 19:34] LABS: Alanine Aminotransferase 47 IU/L (<35); Albumin 3.3 g/dL (3.5-5.0); Albumin Globulin Ratio 1.1 (1.0-2.8); Alkaline Phosphatase 54 U/L (38-126); Aspartate Aminotransferase 70 IU/L (14-36); BUN Creatinine Ratio 22.7 (6-22); Bilirubin Total 0.6 mg/dL (0.2-1.3); Blood Urea Nitrogen 46 mg/dL (7-17); Calcium 8.4 mg/dL (8.4-10.2); Carbon Dioxide 24 mmol/L (22-32); Chloride 110 mmol/L (98-107); Estimated Glomerular Filt Rate 24 mL/min (>60); Globulin 2.9 g/dL (1.7-4.1); Glucose 117 mg/dL (80-110); HEMOLYSIS < 15 (0-50); Potassium 4.7 mmol/L (3.4-5.1); Sodium 143 mmol/L (137-145); Total Protein 6.2 g/dL (6.3-8.2)
[2023-07-04] MEDS: SODIUM CHLORIDE 0.9% 500 ML 1000 ML IV (20:48)
[2023-07-04] MEDS: PHENYLEPHRINE 20,000 MCG in DEXTROSE 5% IN WATER 250 ML 37.5 MCG IV (23:10)
[2023-07-04] MEDS: propofoL 1,000 MG/100 ML VIAL 10.44 MG IV (23:15)
[2023-07-05] VITALS (69 sets, daily range): BP systolic 105–214; BP diastolic 61–113; PULSE 70–128; RESP 12–50; TEMP 32–37; O2SAT 79–97
[2023-07-05] MEDS: INSULIN LISPRO 100 UNIT/ML 3ML VIAL SUBCUT ×3 (00:59→12:27)
[2023-07-05] MEDS: SODIUM CHLORIDE 0.9% 1,000 ML 125 ML IV (03:26)
[2023-07-05] MEDS: DOXYCYCLINE 100 MG in SODIUM CHLORIDE 0.9% 100 ML IV ×2 (05:49→17:23)
[2023-07-05] MEDS: propofoL 1,000 MG/100 ML VIAL 10.44 MG IV (05:50)
[2023-07-05 06:21] LABS: Add Manual Diff / Slide Review NO; Basophils Absolute Auto 0 /uL (0-100); Basophils Percent Auto 0.2 % (0-2); Eosinophils Absolute Auto 0 /uL (0-450); Eosinophils Percent Auto 0.1 % (2-4); Hematocrit 27.5 % (36-46); Hemoglobin 8.9 g/dL (12.0-16.0); Lymphocytes Absolute Auto 700 /uL (1100-4500); Lymphocytes Percent Auto 5.3 % (25-40); Mean Corpuscular HGB Conc 32.5 % (30-36); Mean Corpuscular Volume 95.4 fL (80-100); Monocytes Absolute Auto 500 /uL (0-900); Monocytes Percent Auto 3.8 % (3-14); Neutrophils Absolute Auto 11600 /uL (1500-7000); Neutrophils Percent Auto 90.6 % (50-75); Platelet Count 132 X10^3/uL (150-400); Red Blood Cell Count 2.89 X10^6/uL (4.0-5.2); White Blood Cell Count 12.8 X10^3/uL (4.5-11.0)
[2023-07-05 06:27] LABS: Alanine Aminotransferase 82 IU/L (<35); Albumin 2.9 g/dL (3.5-5.0); Alkaline Phosphatase 55 U/L (38-126); Aspartate Aminotransferase 96 IU/L (14-36); BUN Creatinine Ratio 25.8 (6-22); Bilirubin Total 0.2 mg/dL (0.2-1.3); Blood Urea Nitrogen 51 mg/dL (7-17); Calcium 8.2 mg/dL (8.4-10.2); Carbon Dioxide 22 mmol/L (22-32); Chloride 110 mmol/L (98-107); Estimated Glomerular Filt Rate 25 mL/min (>60); Globulin 2.8 g/dL (1.7-4.1); Glucose 166 mg/dL (80-110); HEMOLYSIS < 15 (0-50); Magnesium 2.4 mg/dL (1.6-2.3); Potassium 4.4 mmol/L (3.4-5.1); Sodium 139 mmol/L (137-145); Total Protein 5.7 g/dL (6.3-8.2)
--- NOTE | 2023-07-05 06:47 | PC.NURSE ---
assistant casino shift manager RN note pt intubated and sedated, opens eyes to verbal stimuli and follows commands to squeeze hands at times, RASS -2 to +1 at times, PERRL 2mm sluggish, FRAZIER, bilat soft wrist restraints on to maintain therapy, VSS, afebrile, afib 60-90s, dilt gtt titrated down to 5mg/hr, neosynephrine gtt titrated off overnight, PPPx4, 2+ L ankle edema, 1+ L lower leg edema, #7 ETT/21 at teeth, vent AC 16 rate/360 VT/peep 5/50% FIO2, lungs clear and decreased, occassional cough and overbreathing of vent, suctioned for small amts clear thin secretions from ETT, L nare NGT to LIS for mod amt bile drainage, abd soft with hypo BS, pt incont of mod amt loose liquid brown stool this am, initially low u/o at start of shift, MD notified and order for 500ml bolus, pt tolerated and slight increased in u/o, in am r/c found deflated in bed with unmeasured amt urine on pad, new r/c placed, urine earnestine with sediment, skin warm and dry, midline abd dsg intact and marked for shadowing, SCDs on, periph IV site L arm patent, ROB PICC insitu and patent, meds and labs as ordered, continue to monitor
--- NOTE | 2023-07-05 07:39 | P.PN_ITS ---
Subjective Subjective Date Patient Seen: 07/05/23 Time Patient Seen: 07:40 Interval history: Patient's care over the weekend discussed with Dr. Ng. Basically patient had no improvement in her bowel obstruction, developed an oxygen requirement ended up being more formally diagnosed with pneumonia given findings on chest x-ray even at admission. Went into atrial fibrillation with rapid ventricular response (which is new for her). Was placed on a diltiazem drip at the direction of Cardiology. Limited echo was performed which seem to demonstrate normal left ventricular function so she was taken to the OR for exploratory laparotomy where a single band of adhesions was found causing her obstruction and was lysed. She was returned to the ICU remaining intubated. She remains intubated with a 50% FiO2 but easy to ventilate. She remains on diltiazem continuous infusion for rate control of her atrial fibrillation. Blood pressures have been stable although lower than her average which is usually quite high. She did require pressors initially immediately postop but is now off of that at this point. She apparently is producing bowel movements. She is also on TPN as per General surgery. Discussion was held with patient prior to taking her to the OR regarding possible need for continued respiratory support. She would previously indicated a do not resuscitate status but agreed to intubation and continued ventilator management should she be improving and need continued ventilatory support least for some period of time. If it was felt as though her overall clinical course a plateaued and she was not improving she would prefer to be extubated and made comfort care She is being followed by the tele parent partner service for management of her ventilator and other critical care needs Exam Vital Signs (past 8 hours): - 07/04/23 23:45 07/04/23 23:45 07/05/23 00:00 Temperature 98.4 F Pulse Rate 92 H Respiratory Rate 16 Blood Pressure 118/58 L Pulse Oximetry 94 Oxygen Delivery Method 07/05/23 00:00 07/05/23 00:00 07/05/23 00:15 Temperature Pulse Rate 90 Respiratory Rate 16 Blood Pressure 121/63 120/65 Pulse Oximetry 95 Oxygen Delivery Method 07/05/23 00:15 07/05/23 00:31 07/05/23 00:33 Temperature Pulse Rate 84 90 87 Respiratory Rate 16 16 16 Blood Pressure Pulse Oximetry 95 95 95 Oxygen Delivery Method 07/05/23 00:33 07/05/23 01:00 07/05/23 01:00 Temperature Pulse Rate 89 Respiratory Rate 16 Blood Pressure 120/67 120/69 Pulse Oximetry 96 Oxygen Delivery Method 07/05/23 01:30 07/05/23 01:30 07/05/23 02:00 Temperature Pulse Rate 90 Respiratory Rate 16 Blood Pressure 123/64 Pulse Oximetry 95 Oxygen Delivery Method Mechanical Ventilation 07/05/23 02:00 07/05/23 02:00 07/05/23 02:30 Temperature Pulse Rate 86 92 H Respiratory Rate 16 16 Blood Pressure 117/69 Pulse Oximetry 96 96 Oxygen Delivery Method 07/05/23 02:30 07/05/23 03:00 07/05/23 03:00 Temperature Pulse Rate 78 Respiratory Rate 16 Blood Pressure 115/73 118/65 Pulse Oximetry 96 Oxygen Delivery Method 07/05/23 03:30 07/05/23 03:30 07/05/23 04:00 Temperature Pulse Rate 86 92 H Respiratory Rate 15 16 Blood Pressure 123/74 Pulse Oximetry 96 95 Oxygen Delivery Method 07/05/23 04:00 07/05/23 04:00 07/05/23 04:30 Temperature 98.6 F Pulse Rate 92 H Respiratory Rate 16 Blood Pressure 119/66 Pulse Oximetry 96 Oxygen Delivery Method 07/05/23 04:30 07/05/23 05:00 07/05/23 05:01 Temperature Pulse Rate 100 H 102 H Respiratory Rate 22 17 Blood Pressure 119/74 Pulse Oximetry 92 92 Oxygen Delivery Method 07/05/23 05:01 07/05/23 05:30 07/05/23 05:30 Temperature Pulse Rate 93 H Respiratory Rate 16 Blood Pressure 144/71 H 108/69 Pulse Oximetry 94 Oxygen Delivery Method 07/05/23 06:00 07/05/23 06:00 07/05/23 06:30 Temperature Pulse Rate 80 77 Respiratory Rate 16 16 Blood Pressure 105/67 Pulse Oximetry 96 96 Oxygen Delivery Method 07/05/23 06:30 07/05/23 07:00 07/05/23 07:00 Temperature Pulse Rate 77 Respiratory Rate 16 Blood Pressure 121/70 118/76 Pulse Oximetry 97 Oxygen Delivery Method 07/05/23 07:30 07/05/23 07:30 Temperature Pulse Rate 81 Respiratory Rate 16 Blood Pressure 116/71 Pulse Oximetry 96 Oxygen Delivery Method Fraction of Inspired Oxygen 50 Oxygen Delivery Method Mechanical Ventilation Oxygen Flow Rate 8 Narrative Exam Narrative: Elderly female intubated sedated lying in hospital bed in the ICU Lungs-good breath sounds with the ventilator, clear, no wheezes or crackles Heart-irregularly irregular but not tachycardic Abdomen-rare bowel tones, mild distention Extremities-no edema Objective Labs 07/05/23 06:00 07/05/23 06:00 Labs: Laboratory Results - last 24 hr 07/04/23 07/04/23 07/04/23 08:30 14:50 17:45 WBC 18.1 H D 16.2 H RBC 3.46 L 3.05 L Hgb 10.7 L 9.5 L Hct 33.0 L 29.2 L MCV 95.3 95.9 MCH 31.0 31.1 MCHC 32.5 32.5 RDW 13.9 13.7 Plt Count 152 157 Neut % (Auto) 92.7 H 93.6 H Lymph % (Auto) 2.6 L 2.1 L Rankin % (Auto) 4.4 4.1 Eos % (Auto) 0.0 L 0.1 L Baso % (Auto) 0.3 0.1 Neut # (Auto) 79274 H 20040 H Lymph # (Auto) 500 L 300 L Rankin # (Auto) 800 700 Eos # (Auto) 0 0 Baso # (Auto) 100 0 Sodium 142 Potassium 4.9 Chloride 109 H Carbon Dioxide 26 BUN 44 H Creatinine 1.94 H Estimated GFR 26 L BUN/Creatinine Ratio 22.7 H Glucose 144 H Calcium 9.2 Magnesium 2.5 H Total Bilirubin 0.5 AST 36 ALT 17 Alkaline Phosphatase 64 Total Protein 7.0 Albumin 3.5 Globulin 3.5 Albumin/Globulin Ratio 1.0 TSH 15.30 H Free T4 1.07 Nasal Screen MRSA (PCR) Detected H 07/04/23 07/05/23 18:50 06:00 WBC 12.8 H RBC 2.89 L Hgb 8.9 L Hct 27.5 L MCV 95.4 MCH 31.0 MCHC 32.5 RDW 14.0 Plt Count 132 L Neut % (Auto) 90.6 H Lymph % (Auto) 5.3 L Rankin % (Auto) 3.8 Eos % (Auto) 0.1 L Baso % (Auto) 0.2 Neut # (Auto) 14355 H Lymph # (Auto) 700 L Rankin # (Auto) 500 Eos # (Auto) 0 Baso # (Auto) 0 Sodium 143 139 Potassium 4.7 4.4 Chloride 110 H 110 H Carbon Dioxide 24 22 BUN 46 H 51 H Creatinine 2.03 H 1.98 H Estimated GFR 24 L 25 L BUN/Creatinine Ratio 22.7 H 25.8 H Glucose 117 H 166 H Calcium 8.4 8.2 L Magnesium 2.4 H Total Bilirubin 0.6 0.2 AST 70 H 96 H ALT 47 H 82 H Alkaline Phosphatase 54 55 Total Protein 6.2 L 5.7 L Albumin 3.3 L 2.9 L Globulin 2.9 2.8 Albumin/Globulin Ratio 1.1 1.0 TSH Free T4 Nasal Screen MRSA (PCR) [facility] Medical History Symptomatic anemia Port-A-Cath in place Scoliosis Arthritis Pulmonary nodule Fallopian tube carcinoma Essential hypertension Surgical History Status post hip hemiarthroplasty (04/01/22) History of lung biopsy (2016) S/P total abdominal hysterectomy and bilateral salpingo-oophorectomy (~2013) History of partial pancreatectomy Status post exploratory laparotomy Status post splenectomy (2015) Social History household members: spouse Smoking Status: Former smoker alcohol intake: former Assessment & Plan Assessment & Plan narrative: 1. Postop day 1. Status post exploratory laparotomy with lysis of adhesions- patient with some evidence of return of bowel function already. Continued management as per General surgery, but appears to be doing quite well from a surgical/postoperative standpoint 2. Respiratory-patient remains on ventilator likely in part secondary to her cardiac issues as well as pneumonia. Still has a modest oxygen requirement. White blood cell count is somewhat down over its peak this morning. Continued management of ventilator as per tele parent partner. Continue on parental antibiotics (doxy plus ceftriaxone) for presumed community-acquired pneumonia. Plan for portable/single view chest x-ray this morning. Patient has had her FiO2 weaned down and could consider attempt at extubation if she does well with reduce sedation etcetera. Again as per tele parent partner service. 3. Cardiac-patient remains in atrial fibrillation. Will obtain formal full/complete echocardiogram. Wean and or discontinue diltiazem as able. Unfortunately we do not have Cardiology services at this hospital for assistance. Probably no change to diltiazem today while we work on weaning her respiratory support. Fortunately she is off the Stoney-Synephrine, and holding her own with her blood pressure 4. Fluids/electrolytes/nutrition-continue with IV fluids plus TPN. Creatinine remains elevated over baseline but minimally improved over yesterday. She does appear to be intravascular volume depleted can likely benefit from additional fluids. Plan to repeat labs including creatinine be when electrolytes tomorrow. 5. VTE prophylaxis-continue with SCDs for now. Lovenox when felt to be appropriate as per General surgery. Also benefit from full anticoagulation given the atrial fibrillation as above.
--- NOTE | 2023-07-05 07:56 | DI.RAD.S_ITS ---
P the ROCEDURE: XR CHEST 1V INDICATIONS: resp failure TECHNIQUE: One view of the chest was acquired. COMPARISON: [facility], CR, XR CHEST 1V, 07/04/2023, 9:05. [facility], CR, XR CHEST FOR PICC 1V, 07/04/2023, 11:48. FINDINGS: Surgical changes and devices: Right chest Port-A-Cath, NG tube. Lungs and pleura: Dense bilateral airspace consolidation, right greater than left. Question interval progression on the right. Bibasilar atelectasis also present. Mediastinum: Mediastinal contours appear normal. Mild cardiomegaly. Bones and chest wall: No suspicious bony lesions. Overlying soft tissues appear unremarkable. IMPRESSION: Extensive pulmonary infiltrates and atelectasis. Question interval progression. Dictated by: Rajendra Evangelista M.D. on 07/05/2023 at 8:42 Approved by: Rajendra Evangelista M.D. on 07/05/2023 at 8:44
[2023-07-05] MEDS: SODIUM CHLORIDE 0.9% 1,000 ML 150 ML IV (11:35)
[2023-07-05] MEDS: METOPROLOL TARTRATE 5 MG/5 ML INJ IV ×2 (12:20→17:24)
--- NOTE | 2023-07-05 13:41 | P.TELICUPN_ITS ---
Subjective Subjective IF CAMERA ACTIVATED, patient seen via real-time interactive audiovisual communication: Camera activated Consent obtained for tele-electronic publishing specialist care: Yes Patient Location: ICU Provider location (State): [place] Other participants/roles: rn Interval history: pt extubated this AM, she did well onm cpap. she was extubated but her fio2 requirements did increase through the day. I suspect this is likely from fluiid overload at this point. Current Medications Current Medications Medications: Home Medications acetaminophen 325 mg capsule (Tylenol) 650 mg (2 x 325 mg) PO QID PRN pain #60 caps 05/22/21 [Rx Confirmed 07/02/23] prochlorperazine maleate 10 mg tablet (Compazine) 10 mg PO Q6H PRN Nausea 05/26/21 [History Confirmed 07/02/23] furosemide 20 mg tablet 40 mg (2 x 20 mg) PO DAILY #180 tabs 04/12/23 [Rx Confirmed 07/02/23] bevacizumab 25 mg/mL intravenous solution (Avastin) 25 mg IV QMONTH 05/14/23 [History Confirmed 07/02/23] carvedilol phosphate 40 mg capsule,[id number] multiphase See Rx Instructions PO DAILY 05/14/23 [History Confirmed 07/02/23] gabapentin 100 mg capsule 200 mg PO DAILY 05/14/23 [History Confirmed 07/02/23] mirabegron 25 mg tablet,extended release 24 hr (Myrbetriq) 25 mg PO DAILY 05/14/23 [History Confirmed 07/02/23] telmisartan 40 mg tablet 40 mg PO BID 05/14/23 [History Confirmed 07/02/23] felodipine 2.5 mg tablet,extended release 24 hr 2.5 mg PO DAILY #90 tabs 06/28/23 [Rx Confirmed 07/02/23] Visit Medications (administered) Generic Name Dose Route Start Last Admin Trade Name Freq PRN Reason Stop Dose Admin Diphenhydramine HCl 25 mg 07/02/23 08:23 07/02/23 08:34 Diphenhydramine 50 Mg/Ml Vial IV 25 mg Q4HR PRN Administration Itching Hydromorphone HCl 1 mg 07/02/23 09:10 07/04/23 04:06 Hydromorphone 0.5 Mg Inj IV 1 mg Q2H PRN Administration Pain, Moderate (4-6) Hydromorphone HCl 2 mg 07/02/23 09:10 07/04/23 11:17 Hydromorphone 2 Mg Inj IV 2 mg Q2H PRN Administration Pain, Severe (7-10) DILTIAZEM 125 mg in 125 mls @ 5 mls/hr 07/04/23 10:15 07/05/23 12:49 Diltiazem 125 Mg/125 Ml-D5w IV 0 mg/hr TITRATE KASHMIR 0 mls/hr Titration Protocol 5 MG/HR Multivitamins 10 ml/ Chromium/ 1,013 mls @ 42.208 mls/hr 07/04/23 18:00 07/04/23 18:47 Copper/Manganese/Seleni/Zn 1 IV 07/05/23 17:59 42.208 mls/hr ml/ Thiamine HCl 100 mg/ 1800 KASHMIR Administration Famotidine 10 mg/ Amino Acids/ Electrolytes Sodium Chloride 1,000 mls @ 150 mls/hr 07/04/23 15:30 07/05/23 11:35 Normal Saline 0.9% IV 150 mls/hr CONT KASHMIR Administration Ceftriaxone Sodium 2,000 mg/ 100 mls @ 200 mls/hr 07/04/23 16:00 07/04/23 17:05 Sodium Chloride IV Infused Q24H KASHMIR Infusion Doxycycline Hyclate 100 mg/ 100 mls @ 100 mls/hr 07/04/23 17:00 07/05/23 07:33 Sodium Chloride IV 07/08/23 16:59 Infused Q12H KASHMIR Infusion Phenylephrine HCl 20,000 mcg/ 250 mls @ 75 mls/hr 07/04/23 15:58 07/05/23 04:30 Dextrose IV 0 mcg/min TITRATE KASHMIR 0 mls/hr Titration Protocol 100 MCG/MIN Insulin Human Lispro 0 unit 07/04/23 18:00 07/05/23 12:27 Insulin Lispro 100 Unit/Ml 3ml Vial SUBCUT 1 unit Q6H KASHMIR Administration Protocol Metoprolol Tartrate 5 mg 07/05/23 11:49 07/05/23 12:20 Metoprolol Tartrate 5 Mg/5 Ml Inj IV 5 mg Q6H KASHMIR Administration Ondansetron HCl 4 mg 07/02/23 06:00 07/05/23 12:54 Ondansetron 4 Mg/2 Ml Inj IV Not Given Q6HR [facility] Prochlorperazine 10 mg 07/02/23 19:10 07/04/23 11:16 Prochlorperazine 10 Mg/2 Ml Vial IV 10 mg Q6HR PRN Administration Nausea Objective Ventilator Parameters: Ventilator Settings FiO2 30 RT Vent Frequency 16 Ventilator Tidal Volume 380 Exhaled Vt/kg IBW 52 Positive End Expiratory 5 Pressure Inspiratory Phase Time 0.85 I:E Ratio 1:3:4 Patient Position HOB >= 30 degrees Labs 07/05/23 06:00 07/05/23 06:00 Labs: Laboratory Results - last 24 hr 07/04/23 07/04/23 07/04/23 14:50 17:45 18:50 WBC 16.2 H RBC 3.05 L Hgb 9.5 L Hct 29.2 L MCV 95.9 MCH 31.1 MCHC 32.5 RDW 13.7 Plt Count 157 Neut % (Auto) 93.6 H Lymph % (Auto) 2.1 L [place] % (Auto) 4.1 Eos % (Auto) 0.1 L Baso % (Auto) 0.1 Neut # (Auto) 40244 H Lymph # (Auto) 300 L [place] # (Auto) 700 Eos # (Auto) 0 Baso # (Auto) 0 Sodium 143 Potassium 4.7 Chloride 110 H Carbon Dioxide 24 BUN 46 H Creatinine 2.03 H Estimated GFR 24 L BUN/Creatinine Ratio 22.7 H Glucose 117 H Calcium 8.4 Magnesium Total Bilirubin 0.6 AST 70 H ALT 47 H Alkaline Phosphatase 54 Total Protein 6.2 L Albumin 3.3 L Globulin 2.9 Albumin/Globulin Ratio 1.1 Nasal Screen MRSA (PCR) Detected H 07/05/23 06:00 WBC 12.8 H RBC 2.89 L Hgb 8.9 L Hct 27.5 L MCV 95.4 MCH 31.0 MCHC 32.5 RDW 14.0 Plt Count 132 L Neut % (Auto) 90.6 H Lymph % (Auto) 5.3 L [place] % (Auto) 3.8 Eos % (Auto) 0.1 L Baso % (Auto) 0.2 Neut # (Auto) 27173 H Lymph # (Auto) 700 L [place] # (Auto) 500 Eos # (Auto) 0 Baso # (Auto) 0 Sodium 139 Potassium 4.4 Chloride 110 H Carbon Dioxide 22 BUN 51 H Creatinine 1.98 H Estimated GFR 25 L BUN/Creatinine Ratio 25.8 H Glucose 166 H Calcium 8.2 L Magnesium 2.4 H Total Bilirubin 0.2 AST 96 H ALT 82 H Alkaline Phosphatase 55 Total Protein 5.7 L Albumin 2.9 L Globulin 2.8 Albumin/Globulin Ratio 1.0 Nasal Screen MRSA (PCR) Exam Vital Signs (past 8 hours): - 07/05/23 06:00 07/05/23 06:00 07/05/23 06:30 Temperature Pulse Rate 80 77 Respiratory Rate 16 16 Blood Pressure 105/67 Pulse Oximetry 96 96 Oxygen Delivery Method Oxygen Flow Rate Fraction of Inspired Oxygen 07/05/23 06:30 07/05/23 07:00 07/05/23 07:00 Temperature Pulse Rate 77 Respiratory Rate 16 Blood Pressure 121/70 118/76 Pulse Oximetry 97 Oxygen Delivery Method Oxygen Flow Rate Fraction of Inspired Oxygen 07/05/23 07:00 07/05/23 07:30 07/05/23 07:30 Temperature 96.4 F L Pulse Rate 81 Respiratory Rate 16 Blood Pressure 116/71 Pulse Oximetry 96 Oxygen Delivery Method Oxygen Flow Rate Fraction of Inspired Oxygen 07/05/23 08:00 07/05/23 08:00 07/05/23 08:30 Temperature Pulse Rate 82 99 H Respiratory Rate 16 23 Blood Pressure 128/61 Pulse Oximetry 90 L 90 L Oxygen Delivery Method Oxygen Flow Rate Fraction of Inspired Oxygen 07/05/23 08:30 07/05/23 09:00 07/05/23 09:00 Temperature Pulse Rate 97 H Respiratory Rate 28 H Blood Pressure 121/78 133/76 Pulse Oximetry 90 L Oxygen Delivery Method Oxygen Flow Rate Fraction of Inspired Oxygen 07/05/23 09:00 07/05/23 09:25 07/05/23 09:30 Temperature Pulse Rate 95 H Respiratory Rate 23 Blood Pressure Pulse Oximetry 90 L 91 Oxygen Delivery Method Mechanical Ventilation Oxygen Flow Rate Fraction of Inspired Oxygen 07/05/23 09:30 07/05/23 10:00 07/05/23 10:00 Temperature Pulse Rate 99 H Respiratory Rate 28 H Blood Pressure 140/76 138/70 Pulse Oximetry 81 L Oxygen Delivery Method Oxygen Flow Rate Fraction of Inspired Oxygen 07/05/23 10:30 07/05/23 10:30 07/05/23 11:00 Temperature Pulse Rate 98 H 105 H Respiratory Rate 29 H 41 H Blood Pressure 144/89 H Pulse Oximetry 89 L 79 L Oxygen Delivery Method Oxygen Flow Rate Fraction of Inspired Oxygen 07/05/23 11:01 07/05/23 11:01 07/05/23 11:08 Temperature Pulse Rate 106 H 100 H Respiratory Rate 34 H 24 Blood Pressure 132/92 H Pulse Oximetry 85 L 88 L Oxygen Delivery Method Oxygen Flow Rate Fraction of Inspired Oxygen 07/05/23 11:30 07/05/23 11:30 07/05/23 11:32 Temperature Pulse Rate 102 H Respiratory Rate 31 H Blood Pressure 131/79 Pulse Oximetry 87 L 92 Oxygen Delivery Method Oxygen Flow Rate 45 Fraction of Inspired Oxygen 0.9 07/05/23 12:00 07/05/23 12:00 07/05/23 12:30 Temperature Pulse Rate 107 H 104 H Respiratory Rate 30 H 28 H Blood Pressure 141/77 H Pulse Oximetry 90 L 88 L Oxygen Delivery Method Oxygen Flow Rate Fraction of Inspired Oxygen 07/05/23 12:30 07/05/23 13:00 07/05/23 13:00 Temperature Pulse Rate 107 H Respiratory Rate 35 H Blood Pressure 136/73 139/87 Pulse Oximetry 83 L Oxygen Delivery Method Oxygen Flow Rate Fraction of Inspired Oxygen 07/05/23 13:33 Temperature Pulse Rate Respiratory Rate Blood Pressure Pulse Oximetry 92 Oxygen Delivery Method Oxygen Flow Rate 50 Fraction of Inspired Oxygen 1.00 Fraction of Inspired Oxygen 1.00 Oxygen Delivery Method Mechanical Ventilation Oxygen Flow Rate 50 Narrative Exam Narrative: extubated Resp Other: symmetric chest rise Cardio Other: afib on monitor Assessment & Plan Assessment and plan (1) Small bowel obstruction: Status: Acute (2) Fallopian tube carcinoma: Problem details: Managed at [facility] Qualifiers: Laterality: unspecified laterality Qualified Code(s): C57.00 - Malignant neoplasm of unspecified fallopian tube Status: Chronic (3) Acute respiratory failure: Status: Acute Plan pt placed on hfnc, but will upgrade herto bipap will stop cardizem ( has quite a bit of volume even at lower doses) lorepssor pushes will even consider cardizem pushes map goal >65 trend bmp trend cbc will startr gentle diuresis f/u surgery for TPN dvt ppx DNR/I critical care time 35m in
[2023-07-05] MEDS: FUROSEMIDE 40 MG/4 ML VIAL IV ×2 (14:18→18:37)
[2023-07-05] MEDS: cefTRIAXone 2,000 MG in SODIUM CHLORIDE 0.9% 100 ML 200 MG IV (15:46)
--- NOTE | 2023-07-05 16:09 | PC.NURSE ---
Addendum entered by Chelsey Sales R.N. 07/06/23 07:47: Correction to original note: When pt asked if she wanted ET tube out she nodded head yes, responded no by shaking head when asked if she would want the tube back in if she did not do well after extubation. Addendum entered by Chelsey Sales R.N. 07/05/23 19:29: Dr. Neal called and notified of pt change in code status. Pt states she is willing to try bipap with sedation/anti-anxiety meds which was relayed to MD. Order received for precedex gtt which was started and RT notified about bipap. Pt HR up to the 120s and diltiazem gtt restarted at 5mg/hr. 40 mg Lasix also administered per MD order. Original Note: Day Shift Note Pt intubated on ventilator this AM. Propofol and fentanyl gtts paused for sedation vacation at 0825. FiO2 45% with SPO2 in the low 90s to 94%. RR in the 20s. Pt anxious but consolable. Able to follow directions and able to answer yes/no questions by shaking or nodding head. When pt asked if she wanted ET tube out she nodded head yes, responded the same when asked if she would want the tube back in if she did not do well after extubation. Breathing trial done at 0930 and SpO2 remained in the 90-94% range and RR in the 20s. Dr. Villalpando present for rounds and the above details reviewed and order received to extubate. Extubated to oxymask at 5L at 0950 but pt desatted to the low 80s SpO2, necessitating heated HFNC. Heated HFNC titrated up to 50L and 100% FiO2 to keep SpO2 in the low 90s. Pt breathing is shallow, but able to clear secretions. Lung sounds are coarse with intermittent rhonchi. Reviewed with Dr. Villalpando and trial of bipap done. Pt tolerated for about 15 min before stating I can't do this anymore. Declined any anti-anxiety meds. Dr. Gudino updated throughout day on oxygenation needs. Pt did receive 40 mg of Lasix per Dr. Villalpando with 500 ml urine resulting so far. Pt denies feeling short of breath. Asked pt if she wanted to talk to any family or have any family come in and she declined. Son, Yoel, called and asked for update from provider - pt gave permission for son to receive medical info and his number was given to Dr. Gudino ([phone]). Afib RVR in the 110s, Dr. Villalpando states 110s are ok for rate control. Receiving metoprolol scheduled IV pushes at this time. Diltiazem gtt off at this time, see Dr. Villalpando's note. Call light within reach, using appropriately to make needs known.
--- NOTE | 2023-07-05 17:17 | P.EN_ITS ---
Event Note Date Patient Seen: 07/05/23 Time Patient Seen: 17:17 Event Note (Rapid Response, Code, or fall): Patient was extubated this morning and has done well from a respiratory standpoint except for her oxygenation. She is struggling to breathe through her nose with a heated high-flow oxygen and her oxygen saturations are barely at 89- 90% She is on good broad-spectrum antibiotics for community-acquired pneumonia including atypicals. She may have a bit of volume overload and his receive Lasix with good results as far as urine output. She is had her fluids minimized up to and including discontinuing her IV diltiazem at the cost of increased heart rate as per the tele large engine assembler service. This point she is barely maintaining her oxygen saturation with respiratory rate in the mid 30s. I discussed that with her yet again she really wants to avoid being intubated, but if that was the only way to keep her alive she would not say no to that. In other words if it were the only thing that would keep her alive she would be willing to accept intubation she says. This seems to be different than what she told nursing staff earlier. She did not tolerate BiPAP at all and that is not willing to retry that even with sedation. However if she was premedicated with sedation she might be willing to try that she says as well. Discussed with patient's son Yoel who is a trauma surgeon and fully understands the situation. He supports whatever decision his mother and or mother and father might make regarding extraordinary care re-intubation no re-intubation etcetera
[2023-07-05] MEDS: AA 5 %/CALCIUM/LYTES/DEXT 20 % 1,000 ML with MULTIVITAMIN 10 ML, TRACE ELEMENTS 1 ML, T... 42.208 ML IV (17:38)
[2023-07-05] MEDS: FAT EMULSIONS 50 GM/250 ML EMULSION IV (17:38)
[2023-07-05] MEDS: DILTIAZEM 125 MG/125 ML PIGGYBACK IV (18:27)
[2023-07-05] MEDS: dexmedeTOMIDine in 0.9 % NaCL 400 MCG/100 ML PLAST..BAG IV (18:53)
--- NOTE | 2023-07-05 19:01 | PM.ICURNDS ---
- :: This patient was seen via real time interactive two-way audiovisual telecommunication. Note: Pt agreed to have BiPAP, will be using precedex drip to help with anxiety, pt in no distress now while on HFNC & NRM, responding well to lasix, given a second dose of Lasix 40 mg, plan to closely watch UOP and to give another dose if I/O is less than 100 ml/ hr negative. Her afb RVR now 130's will start Cadizem drip. Discussed with medical team and pt at bed side. Pt now full code.
[2023-07-05] MEDS: HEPARIN 5,000 UNIT/ML VIAL 5000 UNIT SUBCUT (21:00)
[2023-07-06] VITALS (76 sets, daily range): BP systolic 141–176; BP diastolic 79–116; PULSE 73–118; RESP 12–47; TEMP 32–37; O2SAT 77–98
[2023-07-06] MEDS: METOPROLOL TARTRATE 5 MG/5 ML INJ IV ×4 (00:52→17:21)
[2023-07-06] MEDS: dexmedeTOMIDine in 0.9 % NaCL 400 MCG/100 ML PLAST..BAG 14.463 MCG IV (01:08)
[2023-07-06] MEDS: HYDROMORPHONE 0.5 MG INJ 1 MG IV (01:20)
[2023-07-06 05:20] LABS: Add Manual Diff / Slide Review NO; Basophils Absolute Auto 0 /uL (0-100); Basophils Percent Auto 0.1 % (0-2); Eosinophils Absolute Auto 0 /uL (0-450); Eosinophils Percent Auto 0.1 % (2-4); Hematocrit 34.9 % (36-46); Hemoglobin 11.2 g/dL (12.0-16.0); Lymphocytes Absolute Auto 500 /uL (1100-4500); Lymphocytes Percent Auto 2.1 % (25-40); Mean Corpuscular HGB Conc 32.1 % (30-36); Mean Corpuscular Hemoglobin 30.9 PG (26-34); Mean Corpuscular Volume 96.5 fL (80-100); Monocytes Absolute Auto 1400 /uL (0-900); Monocytes Percent Auto 6.1 % (3-14); Neutrophils Absolute Auto 20600 /uL (1500-7000); Neutrophils Percent Auto 91.6 % (50-75); Platelet Count 172 X10^3/uL (150-400); Red Blood Cell Count 3.62 X10^6/uL (4.0-5.2); Red Cell Distribution Width 13.9 % (11.6-14.8); White Blood Cell Count 22.5 X10^3/uL (4.5-11.0)
[2023-07-06] MEDS: DOXYCYCLINE 100 MG in SODIUM CHLORIDE 0.9% 100 ML IV (05:23)
[2023-07-06 05:44] LABS: BUN Creatinine Ratio 35.6 (6-22); Blood Urea Nitrogen 58 mg/dL (7-17); Calcium 8.9 mg/dL (8.4-10.2); Carbon Dioxide 25 mmol/L (22-32); Chloride 108 mmol/L (98-107); Estimated Glomerular Filt Rate 31 mL/min (>60); Glucose 174 mg/dL (80-110); HEMOLYSIS < 15 (0-50); Potassium 3.7 mmol/L (3.4-5.1); Sodium 142 mmol/L (137-145)
[2023-07-06] MEDS: INSULIN LISPRO 100 UNIT/ML 3ML VIAL SUBCUT ×2 (06:00→17:29)
--- NOTE | 2023-07-06 06:00 | DI.RAD.S_ITS ---
PROCEDURE: XR CHEST 1V INDICATIONS: resp failure TECHNIQUE: One view of the chest was acquired. COMPARISON: [facility], CR, XR CHEST 1V, 07/05/2023, 7:56. [facility], CR, XR CHEST FOR PICC 1V, 07/04/2023, 11:48. FINDINGS: Surgical changes and devices: Right chest wall port. Lungs and pleura: Diffuse airspace opacities, increased from prior. Similar small pleural effusions. Mediastinum: Mediastinal contours appear normal. Heart size is normal. Bones and chest wall: No suspicious bony lesions. Overlying soft tissues appear unremarkable. IMPRESSION: Worsening diffuse airspace opacities. Differential includes pulmonary edema, acute lung injury and/or infection. Dictated by: Tay Frank M.D. on 07/06/2023 at 7:57 Approved by: Tay Frank M.D. on 07/06/2023 at 7:58
[2023-07-06] MEDS: dexmedeTOMIDine in 0.9 % NaCL 400 MCG/100 ML PLAST..BAG 19.284 MCG IV (06:37)
--- NOTE | 2023-07-06 06:47 | PC.NURSE ---
Addendum entered by Jennifer Og R.N. 07/06/23 06:58: As preceptor, I agree with Tyrell RNs assessments, interventions, evaluations, and documentations. Original Note: Multiple oxy delivery methods trialed thru Nx. @2100 mentation improved on Bi-PAP, 14/6, 90%; SATs 95%; pt tolerating well on 0.8 precedex. @0100 mentation declined on heated HFNC 50L and 100% FiO2 w/15L NRB, SATs >90%; pt did not tolerate with 1.0 precedex. @0500 mentation improved on Bi-PAP, 14/6, 90%; SATs 95%; tolerated w/ 1.1 precedex. Strained cardiac fx (Afib RVR) during low SAT periods, w/ dilt @ 5 mg/hr. Midline aqua-cell Abd dsg CDI, no new shadowing.
--- NOTE | 2023-07-06 07:38 | P.PN_ITS ---
Subjective Subjective Date Patient Seen: 07/06/23 Time Patient Seen: 07:00 Interval history: Patient required additional respiratory support. She agreed to try BiPAP again with adequate sedation. She was put on Precedex and using BiPAP was able to maintain oxygenation although borderline at best. When somewhat hypoxic still struggling with atrial fibrillation with rapid ventricular response. Back on diltiazem continuous infusion. All of this is as per the tele construction trades teacher service This morning white count has bumped slightly to 22,000, but renal function has improved with a creatinine at 1.6 (verses 1.9 yesterday) Chest x-ray this morning demonstrates what appears to me to be more pulmonary edema than anything else. Also probably still right lower lobe infiltrate. It appears to be somewhat advanced, both of these processes, over yesterday's imaging. She did have over 4 L out in urine yesterday. Also another small bowel movement. She is actually kind of hungry and looking to eat something this morning. Mostly she tries to talk through the BiPAP set up and I can not frankly hear or understand what she is saying. Exam Vital Signs (past 8 hours): - 07/06/23 00:00 07/06/23 00:00 07/06/23 00:04 Temperature 97.8 F Pulse Rate 114 H 118 H Respiratory Rate 29 H 29 H Blood Pressure 169/92 H Pulse Oximetry 93 94 Oxygen Delivery Method Oxygen Flow Rate Fraction of Inspired Oxygen 07/06/23 00:30 07/06/23 00:30 07/06/23 01:00 Temperature Pulse Rate 116 H Respiratory Rate 39 H Blood Pressure 145/104 H Pulse Oximetry 93 Oxygen Delivery Method High Flow Nasal Cannula Non -Rebreather Oxygen Flow Rate 2 2 Fraction of Inspired Oxygen 07/06/23 01:00 07/06/23 01:00 07/06/23 01:07 Temperature Pulse Rate 116 H 106 H Respiratory Rate 32 H 35 H Blood Pressure 145/105 H Pulse Oximetry 97 97 Oxygen Delivery Method Oxygen Flow Rate 2 2 2 Fraction of Inspired Oxygen 07/06/23 01:30 07/06/23 01:30 07/06/23 02:00 Temperature Pulse Rate 110 H 106 H Respiratory Rate 29 H 31 H Blood Pressure 147/79 H Pulse Oximetry 93 95 Oxygen Delivery Method Oxygen Flow Rate Fraction of Inspired Oxygen 07/06/23 02:00 07/06/23 02:30 07/06/23 02:30 Temperature Pulse Rate 109 H Respiratory Rate 31 H Blood Pressure 145/85 H 159/82 H Pulse Oximetry 96 Oxygen Delivery Method Oxygen Flow Rate Fraction of Inspired Oxygen 07/06/23 03:00 07/06/23 03:00 07/06/23 03:05 Temperature Pulse Rate 109 H 97 H Respiratory Rate 28 H 30 H Blood Pressure 160/113 H Pulse Oximetry 94 93 Oxygen Delivery Method Oxygen Flow Rate Fraction of Inspired Oxygen 07/06/23 03:30 07/06/23 03:30 07/06/23 04:00 Temperature Pulse Rate 99 H 88 Respiratory Rate 28 H 27 H Blood Pressure 169/100 H Pulse Oximetry 94 96 Oxygen Delivery Method Oxygen Flow Rate Fraction of Inspired Oxygen 07/06/23 04:00 07/06/23 04:19 07/06/23 04:30 Temperature 98.6 F Pulse Rate 100 H 110 H Respiratory Rate 34 H 37 H Blood Pressure 161/101 H Pulse Oximetry 94 93 Oxygen Delivery Method Oxygen Flow Rate Fraction of Inspired Oxygen 07/06/23 04:30 07/06/23 04:46 07/06/23 05:00 Temperature Pulse Rate Respiratory Rate 30 H Blood Pressure 162/94 H 148/116 H Pulse Oximetry 92 Oxygen Delivery Method Oxygen Flow Rate Fraction of Inspired Oxygen 07/06/23 05:00 07/06/23 05:00 07/06/23 05:30 Temperature Pulse Rate 107 H 105 H Respiratory Rate 35 H 41 H Blood Pressure Pulse Oximetry 84 L 90 L Oxygen Delivery Method BiPAP Oxygen Flow Rate Fraction of Inspired Oxygen 07/06/23 05:30 07/06/23 05:52 07/06/23 06:01 Temperature Pulse Rate 117 H Respiratory Rate 45 H Blood Pressure 141/85 H 147/98 H Pulse Oximetry 86 L Oxygen Delivery Method Oxygen Flow Rate Fraction of Inspired Oxygen 07/06/23 06:01 07/06/23 06:02 07/06/23 06:08 Temperature Pulse Rate 111 H 91 H Respiratory Rate 47 H 42 H Blood Pressure Pulse Oximetry 77 L 85 L Oxygen Delivery Method Oxygen Flow Rate Fraction of Inspired Oxygen 100 07/06/23 06:30 07/06/23 06:30 07/06/23 06:47 Temperature Pulse Rate 92 H 97 H Respiratory Rate 38 H 39 H Blood Pressure 163/84 H Pulse Oximetry 95 95 Oxygen Delivery Method Oxygen Flow Rate Fraction of Inspired Oxygen Fraction of Inspired Oxygen 100 Oxygen Delivery Method BiPAP Oxygen Flow Rate 2 Narrative Exam Narrative: Alert and attempts to verbalize as above Lungs-coarse crackles throughout Heart-irregularly irregular Abdomen-positive bowel tones nontender Objective Labs 07/06/23 05:00 07/06/23 05:00 Labs: Laboratory Results - last 24 hr 07/06/23 05:00 WBC 22.5 H D RBC 3.62 L Hgb 11.2 L Hct 34.9 L MCV 96.5 MCH 30.9 MCHC 32.1 RDW 13.9 Plt Count 172 Neut % (Auto) 91.6 H Lymph % (Auto) 2.1 L [place] % (Auto) 6.1 Eos % (Auto) 0.1 L Baso % (Auto) 0.1 Neut # (Auto) 14259 H Lymph # (Auto) 500 L [place] # (Auto) 1400 H Eos # (Auto) 0 Baso # (Auto) 0 PT 11.0 INR 1.0 Sodium 142 Potassium 3.7 Chloride 108 H Carbon Dioxide 25 BUN 58 H Creatinine 1.63 H Estimated GFR 31 L BUN/Creatinine Ratio 35.6 H Glucose 174 H Calcium 8.9 PFSH Medical History Symptomatic anemia Port-A-Cath in place Scoliosis Arthritis Pulmonary nodule Fallopian tube carcinoma Essential hypertension Surgical History Status post hip hemiarthroplasty (04/01/22) History of lung biopsy (2016) S/P total abdominal hysterectomy and bilateral salpingo-oophorectomy (~2013) History of partial pancreatectomy Status post exploratory laparotomy Status post splenectomy (2015) Social History household members: spouse Smoking Status: Former smoker alcohol intake: former Assessment & Plan Assessment & Plan narrative: 1. Postop day 2, status post exploratory laparotomy/lysis of adhesions-appears to be doing well from a pure surgical standpoint. Small bowel movements with positive bowel tones suggest return of bowel function. Should probably be allowed to eat if respiratory status would allow. However given the tenuous nature of her respiratory status currently I would not feed her until she begins to improve over concerns about possible need for re-intubation. She does continue on TPN fortunately. 2. Respiratory-patient with severe acute respiratory failure likely multifactorial including probable pneumonia as well as pulmonary edema. Continue with aggressive diuretic therapy and broad-spectrum antibiotics. Continue with respiratory support as necessary to maintain oxygen saturation. Thus far maintaining without need for re-intubation, but just barely. While I think a large% of her respiratory issue is pulmonary edema and hopefully Lasix will be a great benefit, there was also a likely infectious etiology. There were reports of aspiration night before surgery and patient was MRSA positive upon admission to the ICU. I am going to add vancomycin because of the MRSA positive swab and did expand her anaerobic coverage with metronidazole due to the aspiration. Continue with the ceftriaxone and doxycycline for community- acquired pneumonia (she presented with a right-sided infiltrate on admission chest x-ray, although normal white blood cell count) as well as the aspiration. Patient is penicillin allergic so somewhat more difficult to cover her aspiration. 3. Cardiac-patient remains in atrial fibrillation with intermittent rapid ventricular response. Has required ongoing diltiazem continuous infusion for rate control. Patient with normal left ventricular function on echocardiography done preoperatively. I am fairly Certain that her atrial fibrillation secondary to her respiratory issues. 4. Fluids/electrolytes/nutrition-patient continues on TPN. Continue to minimize fluids at this point and maximize diuresis. 5. VTE prophylaxis-subcu heparin initiated by tele construction trades teacher service. Continue SCDs as well. Patient remains critically ill mostly from a respiratory standpoint. Hopefully we can begin to reverse her respiratory failure and I think from there she will rapidly improve. All involved in her care are surprise she has elected to be reintubated if necessary. Part of the thinking in extubating her yesterday was she was quite adamant that she wanted that tube removed and her preoperative discussion suggested intubation only as minimally required the minimum possible duration. However she was quite coherent and clear with her request last evening.
--- NOTE | 2023-07-06 10:16 | DI.RAD.S_ITS ---
PROCEDURE: XR CHEST 1V INDICATIONS: check ET tube TECHNIQUE: One view of the chest was acquired. COMPARISON: [facility], CR, XR CHEST 1V, 07/06/2023, 5:59. [facility], CR, XR CHEST 1V, 07/05/2023, 7:56. FINDINGS: Surgical changes and devices: Right-sided Port-A-Cath in stable position. Endotracheal tube with tip projecting approximately 4 cm above the kyree. Lungs and pleura: Bilateral pleural effusions and diffuse hazy opacities throughout the bilateral lung blevins. Mediastinum: Mediastinal contours appear normal. Heart size is normal. Bones and chest wall: No suspicious bony lesions. Overlying soft tissues appear unremarkable. IMPRESSION: Endotracheal tube in place with tip approximately 4 cm above the kyree. Redemonstration of small bilateral pleural effusions and diffuse hazy lung space opacities bilaterally. Dictated by: Chacho Coker M.D. on 07/06/2023 at 10:37 Approved by: Chacho Coker M.D. on 07/06/2023 at 10:38
--- NOTE | 2023-07-06 10:26 | PM.PN.EICU ---
Subjective Subjective IF CAMERA ACTIVATED, patient seen via real-time interactive audiovisual communication: Camera activated Consent obtained for tele-instrument processing tech care: Yes Patient Location: ICU Provider location (State): [place] Other participants/roles: RN, Hospitalist, Pharmacist Interval history: The encounter was completed by 2-way audio visual interaction. Briefly, an 83 years old female, with history of hypertension, anemia, fallopian tube carcinoma, initially admitted to ICU on ventilator post op after ex lap and lysis of hydration, extubated on 07/05/2023, course complicated by A-fib with RVR requiring Cardizem drip, and pulmonary edema requiring diuresis. Medical chart reviewed in detail.? Interval history and overnight events discussed with bedside RN. Most recent labs/imaging studies reviewed. WBC trending up, 22.5 this AM.? Hemoglobin 11.2, platelet count 172. Creatinine improved, down to 1.63.? BUN elevated at 58, EGFR 31.? Glucose 174.? Uptrending LFTs with AST 96, ALT 82.? Serum albumin 2.9. ? MRSA screen positive.? SARS-CoV-2 PCR negative. Chest x-ray on 07/06/2023 with worsening diffuse airspace opacities, concerning for pulm edema versus pneumonia. TTE with LVEF 70 to 75% with no focal wall motion abnormalities.? Diastolic function could not be assessed.? RV size normal. Currently on Precedex gtt.? On Cardizem drip For A-fib with RVR, heart rate is currently controlled. Diuresing well with urine output 6100 cc over 24 hours, with net negative -3 L. Remains on BiPAP.?noted to be in severe respiratory distress, increased WOB (RR >40/min), using accessory muscles of respiration. D/w patient and nursing staff. Patient would like to stay full-code and need to be re-intubated at this point. D/w Anaesthesia wire rope fabrication supervisor and requested her to intubate the patient. Current Medications Current Medications Medications: Home Medications acetaminophen 325 mg capsule (Tylenol) 650 mg (2 x 325 mg) PO QID PRN pain #60 caps 05/22/21 [Rx Confirmed 07/02/23] prochlorperazine maleate 10 mg tablet (Compazine) 10 mg PO Q6H PRN Nausea 05/26/21 [History Confirmed 07/02/23] furosemide 20 mg tablet 40 mg (2 x 20 mg) PO DAILY #180 tabs 04/12/23 [Rx Confirmed 07/02/23] bevacizumab 25 mg/mL intravenous solution (Avastin) 25 mg IV QMONTH 05/14/23 [History Confirmed 07/02/23] carvedilol phosphate 40 mg capsule,[id number] multiphase See Rx Instructions PO DAILY 05/14/23 [History Confirmed 07/02/23] gabapentin 100 mg capsule 200 mg PO DAILY 05/14/23 [History Confirmed 07/02/23] mirabegron 25 mg tablet,extended release 24 hr (Myrbetriq) 25 mg PO DAILY 05/14/23 [History Confirmed 07/02/23] telmisartan 40 mg tablet 40 mg PO BID 05/14/23 [History Confirmed 07/02/23] felodipine 2.5 mg tablet,extended release 24 hr 2.5 mg PO DAILY #90 tabs 06/28/23 [Rx Confirmed 07/02/23] Visit Medications (administered) Generic Name Dose Route Start Last Admin Trade Name Freq PRN Reason Stop Dose Admin Diphenhydramine HCl 25 mg 07/02/23 08:23 07/02/23 08:34 Diphenhydramine 50 Mg/Ml Vial IV 25 mg Q4HR PRN Administration Itching Heparin Sodium (Porcine) 5,000 unit 07/05/23 21:00 07/05/23 21:00 Heparin 5,000 Unit/Ml Vial SUBCUT 5,000 unit BID KASHMIR Administration Hydromorphone HCl 1 mg 07/02/23 09:10 07/06/23 01:20 Hydromorphone 0.5 Mg Inj IV 0.5 mg Q2H PRN Administration Pain, Moderate (4-6) Hydromorphone HCl 2 mg 07/02/23 09:10 07/04/23 11:17 Hydromorphone 2 Mg Inj IV 2 mg Q2H PRN Administration Pain, Severe (7-10) DILTIAZEM 125 mg in 125 mls @ 5 mls/hr 07/04/23 10:15 07/05/23 18:27 Diltiazem 125 Mg/125 Ml-D5w IV 5 mg/hr TITRATE KASHMIR 5 mls/hr Administration Protocol 5 MG/HR Fat Emulsion Intravenous 50 gm in 250 mls @ 25 mls/hr 07/05/23 18:00 07/06/23 05:26 Clinolipid 20% IV Infused [id number] KASHMIR Infusion Ceftriaxone Sodium 2,000 mg/ 100 mls @ 200 mls/hr 07/04/23 16:00 07/05/23 17:04 Sodium Chloride IV Infused Q24H KASHMIR Infusion Phenylephrine HCl 20,000 mcg/ 250 mls @ 75 mls/hr 07/04/23 15:58 07/05/23 04:30 Dextrose IV 0 mcg/min TITRATE KASHMIR 0 mls/hr Titration Protocol 100 MCG/MIN Multivitamins 10 ml/ Chromium/ 1,013 mls @ 42.208 mls/hr 07/05/23 18:00 07/05/23 17:38 Copper/Manganese/Seleni/Zn 1 IV 07/06/23 17:59 42.208 mls/hr ml/ Thiamine HCl 100 mg/ 1800 KASHMIR Administration Famotidine 10 mg/ Amino Acids/ Electrolytes dexmedeTOMIDine in 0.9 % NaCL 400 mcg in 100 mls @ 3.214 mls/hr 07/05/23 18:45 07/06/23 08:01 Precedex IV 1.5 mcg/kg/hr TITRATE KASHMIR 24.105 mls/hr Titration Protocol 0.2 MCG/KG/HR Insulin Human Lispro 0 unit 07/04/23 18:00 07/06/23 06:00 Insulin Lispro 100 Unit/Ml 3ml Vial SUBCUT 1 unit Q6H KASHMIR Administration Protocol Metoprolol Tartrate 5 mg 07/05/23 11:49 07/06/23 05:23 Metoprolol Tartrate 5 Mg/5 Ml Inj IV 5 mg Q6H KASHMIR Administration Ondansetron HCl 4 mg 07/02/23 06:00 07/06/23 06:16 Ondansetron 4 Mg/2 Ml Inj IV Not Given Q6HR KASHMIR Prochlorperazine 10 mg 07/02/23 19:10 07/04/23 11:16 Prochlorperazine 10 Mg/2 Ml Vial IV 10 mg Q6HR PRN Administration Nausea Objective Ventilator Parameters: Ventilator Settings FiO2 1.0 RT Vent Frequency 16 Ventilator Tidal Volume 380 Exhaled Vt/kg IBW 52 Positive End Expiratory 5 Pressure Inspiratory Phase Time 0.85 I:E Ratio 1:3:4 Patient Position HOB >= 30 degrees Labs 07/06/23 05:00 07/06/23 05:00 Labs: Laboratory Results - last 24 hr 07/06/23 05:00 WBC 22.5 H D RBC 3.62 L Hgb 11.2 L Hct 34.9 L MCV 96.5 MCH 30.9 MCHC 32.1 RDW 13.9 Plt Count 172 Neut % (Auto) 91.6 H Lymph % (Auto) 2.1 L [place] % (Auto) 6.1 Eos % (Auto) 0.1 L Baso % (Auto) 0.1 Neut # (Auto) 26518 H Lymph # (Auto) 500 L [place] # (Auto) 1400 H Eos # (Auto) 0 Baso # (Auto) 0 PT 11.0 INR 1.0 Sodium 142 Potassium 3.7 Chloride 108 H Carbon Dioxide 25 BUN 58 H Creatinine 1.63 H Estimated GFR 31 L BUN/Creatinine Ratio 35.6 H Glucose 174 H Calcium 8.9 Exam Vital Signs (past 8 hours): - 07/06/23 02:30 07/06/23 02:30 07/06/23 03:00 Temperature Pulse Rate 109 H 109 H Respiratory Rate 31 H 28 H Blood Pressure 159/82 H Pulse Oximetry 96 94 Oxygen Delivery Method Oxygen Flow Rate Fraction of Inspired Oxygen 07/06/23 03:00 07/06/23 03:05 07/06/23 03:30 Temperature Pulse Rate 97 H 99 H Respiratory Rate 30 H 28 H Blood Pressure 160/113 H Pulse Oximetry 93 94 Oxygen Delivery Method Oxygen Flow Rate Fraction of Inspired Oxygen 07/06/23 03:30 07/06/23 04:00 07/06/23 04:00 Temperature 98.6 F Pulse Rate 88 Respiratory Rate 27 H Blood Pressure 169/100 H 161/101 H Pulse Oximetry 96 Oxygen Delivery Method Oxygen Flow Rate Fraction of Inspired Oxygen 07/06/23 04:19 07/06/23 04:30 07/06/23 04:30 Temperature Pulse Rate 100 H 110 H Respiratory Rate 34 H 37 H Blood Pressure 162/94 H Pulse Oximetry 94 93 Oxygen Delivery Method Oxygen Flow Rate Fraction of Inspired Oxygen 07/06/23 04:46 07/06/23 05:00 07/06/23 05:00 Temperature Pulse Rate 107 H Respiratory Rate 30 H 35 H Blood Pressure 148/116 H Pulse Oximetry 92 84 L Oxygen Delivery Method Oxygen Flow Rate Fraction of Inspired Oxygen 07/06/23 05:00 07/06/23 05:30 07/06/23 05:30 Temperature Pulse Rate 105 H Respiratory Rate 41 H Blood Pressure 141/85 H Pulse Oximetry 90 L Oxygen Delivery Method BiPAP Oxygen Flow Rate Fraction of Inspired Oxygen 07/06/23 05:52 07/06/23 06:01 07/06/23 06:01 Temperature Pulse Rate 117 H 111 H Respiratory Rate 45 H 47 H Blood Pressure 147/98 H Pulse Oximetry 86 L 77 L Oxygen Delivery Method Oxygen Flow Rate Fraction of Inspired Oxygen 07/06/23 06:02 07/06/23 06:08 07/06/23 06:30 Temperature Pulse Rate 91 H 92 H Respiratory Rate 42 H 38 H Blood Pressure Pulse Oximetry 85 L 95 Oxygen Delivery Method Oxygen Flow Rate Fraction of Inspired Oxygen 100 07/06/23 06:30 07/06/23 06:47 07/06/23 07:00 Temperature Pulse Rate 97 H Respiratory Rate 39 H Blood Pressure 163/84 H Pulse Oximetry 95 97 Oxygen Delivery Method BiPAP Oxygen Flow Rate 90 Fraction of Inspired Oxygen 07/06/23 07:00 07/06/23 07:00 07/06/23 07:30 Temperature Pulse Rate 84 78 Respiratory Rate 37 H 35 H Blood Pressure 169/95 H Pulse Oximetry 96 96 Oxygen Delivery Method Oxygen Flow Rate Fraction of Inspired Oxygen 07/06/23 07:30 07/06/23 07:43 07/06/23 08:00 Temperature Pulse Rate 89 Respiratory Rate 33 H Blood Pressure 163/84 H 169/95 H Pulse Oximetry 97 Oxygen Delivery Method Oxygen Flow Rate Fraction of Inspired Oxygen 100 07/06/23 08:01 07/06/23 08:01 07/06/23 08:30 Temperature 97.8 F Pulse Rate 86 83 Respiratory Rate 37 H 35 H Blood Pressure 153/91 H Pulse Oximetry 97 95 Oxygen Delivery Method Oxygen Flow Rate Fraction of Inspired Oxygen 07/06/23 08:30 07/06/23 09:00 07/06/23 09:00 Temperature Pulse Rate 81 Respiratory Rate 47 H Blood Pressure 164/110 H 157/89 H Pulse Oximetry 92 Oxygen Delivery Method Oxygen Flow Rate Fraction of Inspired Oxygen 07/06/23 09:30 07/06/23 09:30 07/06/23 10:00 Temperature Pulse Rate 81 89 Respiratory Rate 42 H 29 H Blood Pressure 176/87 H Pulse Oximetry 98 98 Oxygen Delivery Method Oxygen Flow Rate Fraction of Inspired Oxygen Fraction of Inspired Oxygen 100 Oxygen Delivery Method BiPAP Oxygen Flow Rate 90 Narrative Exam Narrative: Remains on BiPAP.?noted to be in severe respiratory distress, increased WOB (RR >40/min), using accessory muscles of respiration. Quality TeleICU Stress Ulcer Stress ulcer prophylaxis: yes and on full treatment dose Assessment & Plan Assessment & Plan narrative: ASSESSMENT/PLAN: # SBO / S/p exploratory laparotomy and lysis of adhesions. POD#2 - Overall doing well from a surgical standpoint. - Defer primary management to the surgery team. ? - Remains NPO.? Started on TPN # Acute hypoxic respiratory failure / Pneumonia: - Likely the setting of pulmonary edema and suspected pneumonia, especially given uptrending WBC of 22.2 this AM. - Chest x-ray this a.m. with pulmonary edema and right lower lobe infiltrate concerning for pneumonia. - Continue diuresis with Lasix 40 mg IV twice daily, goal to keep net negative fluid balance at least -1 L/day. - On multiple antibiotic antibiotics including ceftriaxone, Flagyl, IV vancomycin and azithromycin to cover for pneumonia. Recommend to switch to Zosyn and stop Ceftriaone/Flagyl. - Remains on BiPAP.?noted to be in severe respiratory distress, increased WOB (RR >40/min), using accessory muscles of respiration. D/w patient and nursing staff. Patient would like to stay full-code and need to be re-intubated at this point. D/w Anaesthesia wire rope fabrication supervisor and requested her to urgently intubate the patient. - Once intubated, start patient on Propofol gtt and Fentanyl gtt, RAAS goal 0 to -2. -?C/w vent support per lung protective strategy (TV 6ml/kg by IBW, plat pressure < 30, PaO2 60-80 mm Hg, SaO2 > 90%) and c/w ABCDE bundle while intubated. # Atrial fibrillation with RVR: - Heart rate currently controlled on Cardizem drip.? Wean Cardizem drip with the goal to maintain heart rate <120/min. - If becomes hypotensive (after sedation), may need to switch her to Amiodarone gtt. - TTE with LVEF 70 to 75% with no focal wall motion abnormalities.? Diastolic function could not be assessed.? RV size normal. # Acute kidney injury: - Most likely the setting of fluid overload. ? - Renal function is actually improving with diuresis.? Creatinine is now down to 1.6. - Monitor renal functions with serial BMP, strict input and output. - Avoid nephrotoxic medications. ICU BUNDLE: # FEN: Keep her NPO since needs to be reintubated. # Glucose: fairly controlled. C/w Accu checks Q6 hours and SSI. BG goal 140-180 # Prophylaxis: On heparin subcu for DVT prophylaxis, Start Pepcid for stress ulcer prophylaxis # Lines/tubes: PIV, Alvarez, PICC # CODE STATUS: Was initially DNR but now reversed to full code. # Disposition: Remains in ICU Above plan was discussed with a rounding team including Hospitalist, bedside RN, respiratory therapist, dietitian and pharmacist during tele-ICU multidisciplinary rounds this morning.? We will continue to follow.? Please call us if you have any additional questions.
--- NOTE | 2023-07-06 10:33 | DI.RAD.S_ITS ---
PROCEDURE: XR CHEST 1V INDICATIONS: OG tube placement TECHNIQUE: Two views of the chest was acquired. COMPARISON: [facility], CR, XR CHEST 1V, 07/06/2023, 10:17. [facility], CR, XR CHEST 1V, 07/06/2023, 5:59. FINDINGS: Surgical changes and devices: Endotracheal tube in place with tip approximately 3.4 cm above the kyere. Interval placement of OG tube. The tip and side port project below the diaphragm. Stable position of right-sided Port-A-Cath. Right PICC line with tip likely in the cavoatrial junction, stable compared to prior.. Lungs and pleura: Redemonstration of small bilateral pleural effusions and diffuse hazy opacities throughout the bilateral lung blevins, grossly similar in appearance compared to prior. Mediastinum: Mediastinal contours appear normal. Heart size is normal. Bones and chest wall: No suspicious bony lesions. Overlying soft tissues appear unremarkable. IMPRESSION: 1. Orogastric tube in place with tip and side port below the diaphragm and projecting over the expected location of the stomach. Other lines and tubes as described above. 2. Redemonstration of small bilateral pleural effusions and diffuse hazy opacities throughout the bilateral lung blevins, overall similar in appearance compared to prior. Dictated by: Chacho Coker M.D. on 07/06/2023 at 11:38 Approved by: Chacho Coker M.D. on 07/06/2023 at 11:42
[2023-07-06] MEDS: VANCOMYCIN 500 MG in SODIUM CHLORIDE 0.9% 100 ML 100 MG IV (10:36)
[2023-07-06] MEDS: propofoL 1,000 MG/100 ML VIAL 1.794 MG IV (10:36)
[2023-07-06] MEDS: fentaNYL 1,000 MCG in DEXTROSE 5% IN WATER 230 ML 10.465 MCG IV (10:37)
[2023-07-06] MEDS: FUROSEMIDE 40 MG/4 ML VIAL IV (11:16)
[2023-07-06] MEDS: HEPARIN 5,000 UNIT/ML VIAL 5000 UNIT SUBCUT ×2 (11:16→21:18)
[2023-07-06] MEDS: dexmedeTOMIDine in 0.9 % NaCL 400 MCG/100 ML PLAST..BAG 24.105 MCG IV (11:17)
--- NOTE | 2023-07-06 11:43 | PM.PROC.1 ---
Procedures Date/Time Date of procedure: 07/06/23 Time of procedure: 10:12 Intubation Sedative: other Paralytic: succinylcholine Laryngoscope: other ET tube size: 8 Tube secured depth (cm): 21 Tube secured location: teeth Tube placement confirmation: visualized tube passing through cords, equal breath sounds bilaterally and confirmation by capnometry Patient tolerated procedure: well Additional comments: Pt was on Precedex infusion. Used propofol 100 mg, rocuronium 10 mg, and succinylcholine 100 mg IV for intubation. Used Insighter video laryngoscope for intubation. Easy grade 1 view. Used 8.0 ETT to allow for bronchoscopy if necessary. No known complications.
--- NOTE | 2023-07-06 12:26 | CM.DPC ---
DCP Cont: Per MD and bliss press operator, pt was extubated yesterday 07/05 but was requiring bipap and discussion with pt about her DNR status and if she would like to be reintubated if needed. Pt made decision to switch from DNR back to Full Code and decided on re-intubation to manage her airways. DI arrived and pt was intubated. Plan: SW to follow closely for pt's respiratory status and if she will be able to be successfully extubated and then eval to determine discharge planning needs. Pt's spouse was bedside with [facility] [employer] [facility] transporting and assisting. CHIKIS Monae
[2023-07-06 12:37] LABS: Allen Test for ABG Passed? Yes, Passed; Blood Gas Collection Site Right Radial; Fractionated Inspired Oxygen 85; HCO3 ABG 24 mmol/L (23-27); Oxygen Saturation ABG 92 % (95-100); PCO2 ABG 37.8 mmHg (35-45); PO2 ABG 62 mmHg (80-100); TCO2 ABG 25 mmol/L (23-27); pH ABG 7.41 (7.35-7.45)
[2023-07-06] MEDS: CHLORHEXIDINE GLUCONATE 15 ML CUP PO ×2 (13:08→17:21)
[2023-07-06] MEDS: cefTRIAXone 2,000 MG in SODIUM CHLORIDE 0.9% 100 ML 200 MG IV (16:21)
--- NOTE | 2023-07-06 16:49 | PM.PN.1 ---
Subjective Subjective Date Patient Seen: 07/06/23 Time Patient Seen: 16:50 Interval history: Patient intubated this morning without difficulty. Took some time to get proper sedation without over sedation. Currently she has FiO2 of 80% and respiratory rate in the 20s. Blood pressure in the 160s systolic. Heart rate in the 70s with AFib Continues on diltiazem drip. Is using Precedex plus fentanyl plus propofol for sedation Making excellent urine with 3000+ after Lasix given Continues on antibiotics as noted. Did not switch to Zosyn as recommended as patient has penicillin allergy so continues on ceftriaxone plus metronidazole for aspiration plus vanco for possible MRSA given her positive nasal swab Spoke with her spouse earlier today [id number] Exam Vital Signs (past 8 hours): - 07/06/23 09:00 07/06/23 09:00 07/06/23 09:00 Temperature Pulse Rate 81 Respiratory Rate 47 H Blood Pressure 157/89 H Pulse Oximetry 92 Oxygen Delivery Method BiPAP 07/06/23 09:30 07/06/23 09:30 07/06/23 10:00 Temperature Pulse Rate 81 89 Respiratory Rate 42 H 29 H Blood Pressure 176/87 H Pulse Oximetry 98 98 Oxygen Delivery Method 07/06/23 10:01 07/06/23 10:01 07/06/23 10:15 Temperature Pulse Rate 84 111 H Respiratory Rate 34 H 13 Blood Pressure 148/91 H Pulse Oximetry 98 88 L Oxygen Delivery Method 07/06/23 10:15 07/06/23 10:20 07/06/23 10:20 Temperature Pulse Rate 110 H Respiratory Rate 16 Blood Pressure 150/87 H 164/108 H Pulse Oximetry 97 Oxygen Delivery Method 07/06/23 10:25 07/06/23 10:25 07/06/23 10:30 Temperature Pulse Rate 83 79 Respiratory Rate 14 24 Blood Pressure 162/91 H Pulse Oximetry 97 95 Oxygen Delivery Method 07/06/23 10:30 07/06/23 10:35 07/06/23 10:35 Temperature Pulse Rate 75 Respiratory Rate 28 H Blood Pressure 164/98 H 160/79 H Pulse Oximetry 91 Oxygen Delivery Method 07/06/23 10:40 07/06/23 10:40 07/06/23 10:45 Temperature Pulse Rate 73 76 Respiratory Rate 25 H 38 H Blood Pressure 161/81 H Pulse Oximetry 92 91 Oxygen Delivery Method 07/06/23 10:45 07/06/23 10:50 07/06/23 10:50 Temperature Pulse Rate 75 Respiratory Rate 35 H Blood Pressure 153/88 H 156/85 H Pulse Oximetry 89 L Oxygen Delivery Method 07/06/23 10:55 07/06/23 10:55 07/06/23 11:00 Temperature Pulse Rate 84 84 Respiratory Rate 24 24 Blood Pressure 163/84 H Pulse Oximetry 96 95 Oxygen Delivery Method 07/06/23 11:00 07/06/23 11:05 07/06/23 11:05 Temperature Pulse Rate 80 Respiratory Rate 24 Blood Pressure 157/86 H 164/81 H Pulse Oximetry 93 Oxygen Delivery Method 07/06/23 11:10 07/06/23 11:10 07/06/23 11:15 Temperature Pulse Rate 75 77 Respiratory Rate 24 24 Blood Pressure 154/87 H Pulse Oximetry 93 93 Oxygen Delivery Method 07/06/23 11:15 07/06/23 11:20 07/06/23 11:20 Temperature Pulse Rate 74 Respiratory Rate 24 Blood Pressure 163/90 H 160/86 H Pulse Oximetry 93 Oxygen Delivery Method 07/06/23 11:30 07/06/23 11:30 07/06/23 12:00 Temperature Pulse Rate 73 76 Respiratory Rate 24 24 Blood Pressure 168/79 H Pulse Oximetry 94 93 Oxygen Delivery Method 07/06/23 12:13 07/06/23 12:13 07/06/23 12:30 Temperature Pulse Rate 76 Respiratory Rate 24 Blood Pressure 164/84 H 166/87 H Pulse Oximetry 95 Oxygen Delivery Method 07/06/23 12:30 07/06/23 13:00 07/06/23 13:00 Temperature Pulse Rate 76 75 Respiratory Rate 24 24 Blood Pressure 163/92 H Pulse Oximetry 94 94 Oxygen Delivery Method 07/06/23 13:00 07/06/23 13:30 07/06/23 13:30 Temperature 97.4 F L Pulse Rate 75 Respiratory Rate 24 Blood Pressure 165/93 H Pulse Oximetry 95 Oxygen Delivery Method Mechanical Ventilation 07/06/23 14:00 07/06/23 14:00 07/06/23 14:30 Temperature Pulse Rate 75 77 Respiratory Rate 24 24 Blood Pressure 158/83 H Pulse Oximetry 97 97 Oxygen Delivery Method 07/06/23 14:30 07/06/23 15:00 07/06/23 15:00 Temperature Pulse Rate 75 Respiratory Rate 24 Blood Pressure 162/88 H 165/96 H Pulse Oximetry 97 Oxygen Delivery Method 07/06/23 15:30 Temperature 98.3 F Pulse Rate Respiratory Rate Blood Pressure Pulse Oximetry Oxygen Delivery Method Fraction of Inspired Oxygen 100 Oxygen Delivery Method Mechanical Ventilation Oxygen Flow Rate 90 Objective Labs 07/06/23 05:00 07/06/23 05:00 Labs: Laboratory Results - last 24 hr 07/06/23 07/06/23 05:00 12:20 WBC 22.5 H D RBC 3.62 L Hgb 11.2 L Hct 34.9 L MCV 96.5 MCH 30.9 MCHC 32.1 RDW 13.9 Plt Count 172 Neut % (Auto) 91.6 H Lymph % (Auto) 2.1 L [place] % (Auto) 6.1 Eos % (Auto) 0.1 L Baso % (Auto) 0.1 Neut # (Auto) 95326 H Lymph # (Auto) 500 L [place] # (Auto) 1400 H Eos # (Auto) 0 Baso # (Auto) 0 PT 11.0 INR 1.0 ABG Sample Site Right radial ABG pH 7.41 ABG pCO2 37.8 ABG pO2 62 L ABG HCO3 24 ABG Total CO2 25 ABG O2 Saturation 92 L ABG Base Excess -1.0 FiO2 85 Sodium 142 Potassium 3.7 Chloride 108 H Carbon Dioxide 25 BUN 58 H Creatinine 1.63 H Estimated GFR 31 L BUN/Creatinine Ratio 35.6 H Glucose 174 H Calcium 8.9 PFSH Medical History Symptomatic anemia Port-A-Cath in place Scoliosis Arthritis Pulmonary nodule Fallopian tube carcinoma Essential hypertension Surgical History Status post hip hemiarthroplasty (04/01/22) History of lung biopsy (2016) S/P total abdominal hysterectomy and bilateral salpingo-oophorectomy (~2013) History of partial pancreatectomy Status post exploratory laparotomy Status post splenectomy (2015) Social History household members: spouse Smoking Status: Former smoker alcohol intake: former Assessment & Plan Assessment & Plan narrative: Patient is stable currently. She is requiring a high fraction of inspired oxygen not surprising given what it took to oxygenate her without the ET tube. Hopefully treatment of her pneumonia and or pulmonary edema will improve things significantly. Spoke with spouse who is in agreement if she is not showing evidence of improvement over the next 24-48 hours would likely on her wishes and extubate her to comfort care which is what she suggested she would want prior to her surgery Continue with current therapies including the diuretics the antibiotics etcetera Bit of blood-tinged material in her NG tube probably related to her intubation but will go ahead and put her on prophylactic proton pump inhibitor as well
--- NOTE | 2023-07-06 16:55 | PC.NURSE ---
Day shift note: Early rounds with eICU reforestation worker Dr Camargo was discussed that pt will need to be re-intubated at the earliest possible time, pts O2 needs and respiratory rate of 45 indicate that need, pt is currently a full code and willing to be intubated for a short period of time. 1000 Dr Galloway arrives, explains procedure to pt, obtains verbal consent 1012 Intubation initiated 100mg of Propofol, 10 mg Succs, 10mg Rocc administered, ETT 8.0 21 at teeth tube placement verified by CXR Vent settings FiO2 85% TV 380 RR 24 PEEP 5 OG placed, verified by CXR, connected to LIS Restraints placed, new order completed 1210 Martina Dorado at bedside, updated on pt status 1517 PICC line drsg changed per protocol 1530 Martina Dorado called, inquiring about pt purse which was locked in safe, states that he will be sending the neighbor to pick it up 1541 Neighbor came to pick pulling machine tender purse, all contents verified and signed for, paperwork in pt chart Vent settings remain the same, pt sats 95%, VSS, gtts infusing as charted in emar, bed low and locked, no further needs at this time, will continue to monitor
[2023-07-06] MEDS: dexmedeTOMIDine in 0.9 % NaCL 400 MCG/100 ML PLAST..BAG 16.07 MCG IV ×2 (17:15→22:56)
[2023-07-06] MEDS: AA 5 %/CALCIUM/LYTES/DEXT 20 % 1,000 ML with MULTIVITAMIN 10 ML, TRACE ELEMENTS 1 ML, T... 42.208 ML IV (17:38)
--- NOTE | 2023-07-06 18:06 | P.PN_ITS ---
Subjective Subjective Date Patient Seen: 07/06/23 Time Patient Seen: 18:06 Interval history: Patient reintubated and sedated. Exam Vital Signs (past 8 hours): - 07/06/23 10:15 07/06/23 10:15 07/06/23 10:20 Temperature Pulse Rate 111 H 110 H Respiratory Rate 13 16 Blood Pressure 150/87 H Pulse Oximetry 88 L 97 Oxygen Delivery Method 07/06/23 10:20 07/06/23 10:25 07/06/23 10:25 Temperature Pulse Rate 83 Respiratory Rate 14 Blood Pressure 164/108 H 162/91 H Pulse Oximetry 97 Oxygen Delivery Method 07/06/23 10:30 07/06/23 10:30 07/06/23 10:35 Temperature Pulse Rate 79 75 Respiratory Rate 24 28 H Blood Pressure 164/98 H Pulse Oximetry 95 91 Oxygen Delivery Method 07/06/23 10:35 07/06/23 10:40 07/06/23 10:40 Temperature Pulse Rate 73 Respiratory Rate 25 H Blood Pressure 160/79 H 161/81 H Pulse Oximetry 92 Oxygen Delivery Method 07/06/23 10:45 07/06/23 10:45 07/06/23 10:50 Temperature Pulse Rate 76 75 Respiratory Rate 38 H 35 H Blood Pressure 153/88 H Pulse Oximetry 91 89 L Oxygen Delivery Method 07/06/23 10:50 07/06/23 10:55 07/06/23 10:55 Temperature Pulse Rate 84 Respiratory Rate 24 Blood Pressure 156/85 H 163/84 H Pulse Oximetry 96 Oxygen Delivery Method 07/06/23 11:00 07/06/23 11:00 07/06/23 11:05 Temperature Pulse Rate 84 Respiratory Rate 24 Blood Pressure 157/86 H 164/81 H Pulse Oximetry 95 Oxygen Delivery Method 07/06/23 11:05 07/06/23 11:10 07/06/23 11:10 Temperature Pulse Rate 80 75 Respiratory Rate 24 24 Blood Pressure 154/87 H Pulse Oximetry 93 93 Oxygen Delivery Method 07/06/23 11:15 07/06/23 11:15 07/06/23 11:20 Temperature Pulse Rate 77 74 Respiratory Rate 24 24 Blood Pressure 163/90 H Pulse Oximetry 93 93 Oxygen Delivery Method 07/06/23 11:20 07/06/23 11:30 07/06/23 11:30 Temperature Pulse Rate 73 Respiratory Rate 24 Blood Pressure 160/86 H 168/79 H Pulse Oximetry 94 Oxygen Delivery Method 07/06/23 12:00 07/06/23 12:13 07/06/23 12:13 Temperature Pulse Rate 76 76 Respiratory Rate 24 24 Blood Pressure 164/84 H Pulse Oximetry 93 95 Oxygen Delivery Method 07/06/23 12:30 07/06/23 12:30 07/06/23 13:00 Temperature Pulse Rate 76 Respiratory Rate 24 Blood Pressure 166/87 H 163/92 H Pulse Oximetry 94 Oxygen Delivery Method 07/06/23 13:00 07/06/23 13:00 07/06/23 13:30 Temperature 97.4 F L Pulse Rate 75 75 Respiratory Rate 24 24 Blood Pressure Pulse Oximetry 94 95 Oxygen Delivery Method Mechanical Ventilation 07/06/23 13:30 07/06/23 14:00 07/06/23 14:00 Temperature Pulse Rate 75 Respiratory Rate 24 Blood Pressure 165/93 H 158/83 H Pulse Oximetry 97 Oxygen Delivery Method 07/06/23 14:30 07/06/23 14:30 07/06/23 15:00 Temperature Pulse Rate 77 75 Respiratory Rate 24 24 Blood Pressure 162/88 H Pulse Oximetry 97 97 Oxygen Delivery Method 07/06/23 15:00 07/06/23 15:30 07/06/23 15:30 Temperature 98.3 F Pulse Rate Respiratory Rate Blood Pressure 165/96 H 167/82 H Pulse Oximetry Oxygen Delivery Method 07/06/23 15:30 07/06/23 16:00 07/06/23 16:00 Temperature Pulse Rate 78 78 Respiratory Rate 24 24 Blood Pressure 163/93 H Pulse Oximetry 96 97 Oxygen Delivery Method 07/06/23 16:30 07/06/23 16:30 07/06/23 17:00 Temperature Pulse Rate 80 Respiratory Rate 24 Blood Pressure 167/82 H 165/85 H Pulse Oximetry 97 Oxygen Delivery Method 07/06/23 17:00 Temperature Pulse Rate 79 Respiratory Rate 24 Blood Pressure Pulse Oximetry 98 Oxygen Delivery Method Fraction of Inspired Oxygen 100 Oxygen Delivery Method Mechanical Ventilation Oxygen Flow Rate 90 Narrative Exam Narrative: NGT in place, abdomen is soft. No surgical complications seen. Objective Labs 07/06/23 05:00 07/06/23 05:00 Labs: Laboratory Results - last 24 hr 07/06/23 07/06/23 05:00 12:20 WBC 22.5 H D RBC 3.62 L Hgb 11.2 L Hct 34.9 L MCV 96.5 MCH 30.9 MCHC 32.1 RDW 13.9 Plt Count 172 Neut % (Auto) 91.6 H Lymph % (Auto) 2.1 L [place] % (Auto) 6.1 Eos % (Auto) 0.1 L Baso % (Auto) 0.1 Neut # (Auto) 47818 H Lymph # (Auto) 500 L [place] # (Auto) 1400 H Eos # (Auto) 0 Baso # (Auto) 0 PT 11.0 INR 1.0 ABG Sample Site Right radial ABG pH 7.41 ABG pCO2 37.8 ABG pO2 62 L ABG HCO3 24 ABG Total CO2 25 ABG O2 Saturation 92 L ABG Base Excess -1.0 FiO2 85 Sodium 142 Potassium 3.7 Chloride 108 H Carbon Dioxide 25 BUN 58 H Creatinine 1.63 H Estimated GFR 31 L BUN/Creatinine Ratio 35.6 H Glucose 174 H Calcium 8.9 PFSH Medical History Symptomatic anemia Port-A-Cath in place Scoliosis Arthritis Pulmonary nodule Fallopian tube carcinoma Essential hypertension Surgical History Status post hip hemiarthroplasty (04/01/22) History of lung biopsy (2016) S/P total abdominal hysterectomy and bilateral salpingo-oophorectomy (~2013) History of partial pancreatectomy Status post exploratory laparotomy Status post splenectomy (2015) Social History household members: spouse Smoking Status: Former smoker alcohol intake: former Assessment & Plan Post-op Postoperative Procedures: Procedures Operation Date: 07/04/23 10:00 Actual Procedure Side Surgeon p Exploratory Laparotomy GEN Zayra Granados MD Postoperative status narrative: Acute respiratory failure leading to re intubation. Bilateral pneumonia with CXR appearance of ARDS Postoperative plan narrative: Change in antibiotics, Vent support. Continue TPN. Time Spent With Patient Time with patient: 15-24 minutes
--- NOTE | 2023-07-06 19:44 | PM.ICURNDS ---
- :: This patient was seen via real time interactive two-way audiovisual telecommunication. Note: comfortable on vent, on drips propfol, fentanyl & precedex, HR controlled with stable BP on Cardizem drip @5 mg/hr, good UOP, no changes in the plan of care.
[2023-07-06] MEDS: DILTIAZEM 125 MG/125 ML PIGGYBACK IV (21:14)
[2023-07-06] MEDS: propofoL 1,000 MG/100 ML VIAL 5.382 MG IV (22:18)
[2023-07-07] VITALS (58 sets, daily range): BP systolic 112–179; BP diastolic 56–106; PULSE 66–101; RESP 0–28; TEMP 36.6–37.6; O2SAT 96–100
[2023-07-07] MEDS: METOPROLOL TARTRATE 5 MG/5 ML INJ IV ×3 (00:51→12:19)
[2023-07-07] MEDS: FUROSEMIDE 40 MG/4 ML VIAL IV ×2 (00:52→11:23)
[2023-07-07] MEDS: CHLORHEXIDINE GLUCONATE 15 ML CUP PO ×4 (00:52→17:02)
[2023-07-07] MEDS: INSULIN LISPRO 100 UNIT/ML 3ML VIAL SUBCUT ×2 (01:08→12:31)
[2023-07-07] MEDS: dexmedeTOMIDine in 0.9 % NaCL 400 MCG/100 ML PLAST..BAG 16.07 MCG IV ×3 (04:40→23:19)
--- NOTE | 2023-07-07 06:00 | DI.RAD.S_ITS ---
PROCEDURE: XR CHEST 1V INDICATIONS: resp failure TECHNIQUE: One view of the chest was acquired. COMPARISON: [facility], CR, XR CHEST 1V, 07/06/2023, 10:32. FINDINGS: Surgical changes and devices: Endotracheal tube tip projects approximately 3.1 cm above the kyree. Right tunneled port device is unchanged in positioning. Nasogastric tube extends below the level of the diaphragm with the distal tip excluded off the [id number]. Surgical suture line projects over the left lower chest. Lungs and pleura: Persistent diffuse ill-defined airspace opacities involving the bilateral hemithoraces with slight interval improvement in bilateral lung aeration. Decreased conspicuity of consolidations of the bilateral lung bases. No definite pneumothorax. No substantial pleural effusion although the bilateral costophrenic angles have been excluded on this exam. Mediastinum: Cardiomediastinal contours remain stable. Bones and chest wall: No suspicious bony lesions. Overlying soft tissues appear unremarkable. IMPRESSION: Stable positioning of support equipment. Persistent diffusely scattered ill-defined/hazy airspace opacities with interval improvement in lung aeration and decreased conspicuity of bibasilar opacities. No new focal consolidation seen. Dictated by: Eldon Oropeza M.D. on 07/07/2023 at 8:57 Approved by: Eldon Oropeza M.D. on 07/07/2023 at 9:02
[2023-07-07 06:20] LABS: INR 1.1 (0.9-1.3); Prothrombin Time 12.4 SECONDS (10.1-12.7)
[2023-07-07 06:26] LABS: Alanine Aminotransferase 73 IU/L (<35); Albumin Globulin Ratio 0.9 (1.0-2.8); Alkaline Phosphatase 83 U/L (38-126); Aspartate Aminotransferase 44 IU/L (14-36); BUN Creatinine Ratio 46.2 (6-22); Bilirubin Total 0.3 mg/dL (0.2-1.3); Blood Urea Nitrogen 54 mg/dL (7-17); Calcium 8.8 mg/dL (8.4-10.2); Carbon Dioxide 28 mmol/L (22-32); Chloride 102 mmol/L (98-107); Estimated Glomerular Filt Rate 47 mL/min (>60); Globulin 3.3 g/dL (1.7-4.1); Glucose 127 mg/dL (80-110); HEMOLYSIS < 15 (0-50); Potassium 3.2 mmol/L (3.4-5.1); Sodium 138 mmol/L (137-145); Total Protein 6.3 g/dL (6.3-8.2)
[2023-07-07 06:30] LABS: Hematocrit 38.5 % (36-46); Hemoglobin 12.5 g/dL (12.0-16.0); Mean Corpuscular HGB Conc 32.5 % (30-36); Mean Corpuscular Hemoglobin 30.8 PG (26-34); Platelet Count 181 X10^3/uL (150-400); Red Blood Cell Count 4.05 X10^6/uL (4.0-5.2); Red Cell Distribution Width 13.2 % (11.6-14.8); White Blood Cell Count 15.3 X10^3/uL (4.5-11.0)
[2023-07-07 06:32] LABS: Add Manual Diff / Slide Review YES
--- NOTE | 2023-07-07 06:32 | PC.NURSE ---
shift boss RN note pt intubated and sedated, opens eyes to verbal and physical stimuli, PERRL 2mm and sluggish, initially RASS -2 then restless in am with RASS +1 and reaching for ETT, does not follow commands, VSS, afebrile, PPPx4, 2+ L ankle edema with some mottling, 1+ left leg edema, afib 80-100s, #8 ETT/21 at teeth, vent AC 24/380/5/70%, lungs clear with occasional rhonchi, suctioned for small amts white/creamy secretions, O2 sats >92%, abd soft with BS, no BM, OGT 55cm at lip to LIS for small amt bile drainage, r/c draining QS clear yellow urine, skin warm and dry, midline abd incision dsg intact and marked for old drainage, PICC ED patent, flushes well but does not draw back blood, lab to draw am labs, bilat soft wrist restraints on to maintain therapy, meds and labs as ordered, continue to monitor
--- NOTE | 2023-07-07 06:42 | P.PN_ITS ---
Subjective Subjective Date Patient Seen: 07/07/23 Time Patient Seen: 06:43 Interval history: Patient not surprisingly failed her trial with reduced ventilation this morning. She became quite agitated very early on with reduction in sedation. Blood pressures been elevated and not really responding to the intermittent metoprolol which is really all that is available to nursing staff at this time. Diltiazem drip has controlled her heart rate but never really affected her blood pressure Urine output remains excellent Bruising/changes at the bottom of the feet bilaterally left greater than right Chest x-ray this morning to my interpretation looks like there were some very minor improvement in pulmonary edema. Heart rate well controlled with the diltiazem Renal function much improved this morning with creatinine approaching baseline. She is modestly hypokalemic as well. Exam Vital Signs (past 8 hours): - 07/06/23 23:00 07/06/23 23:00 07/06/23 23:30 Temperature Pulse Rate 82 82 Respiratory Rate 24 24 Blood Pressure 170/84 H Pulse Oximetry 97 98 Oxygen Delivery Method 07/06/23 23:30 07/07/23 00:00 07/07/23 00:00 Temperature 99.6 F 99.5 F Pulse Rate Respiratory Rate Blood Pressure 169/88 H 165/80 H Pulse Oximetry Oxygen Delivery Method 07/07/23 00:00 07/07/23 00:30 07/07/23 00:30 Temperature Pulse Rate 79 83 Respiratory Rate 24 24 Blood Pressure 170/83 H Pulse Oximetry 98 98 Oxygen Delivery Method 07/07/23 01:00 07/07/23 01:00 07/07/23 01:00 Temperature Pulse Rate 84 Respiratory Rate 24 Blood Pressure 171/92 H Pulse Oximetry 98 Oxygen Delivery Method Mechanical Ventilation 07/07/23 01:30 07/07/23 01:30 07/07/23 02:00 Temperature Pulse Rate 86 Respiratory Rate 24 Blood Pressure 159/100 H 155/89 H Pulse Oximetry 98 Oxygen Delivery Method 07/07/23 02:00 07/07/23 02:30 07/07/23 02:30 Temperature Pulse Rate 82 89 Respiratory Rate 24 24 Blood Pressure 156/86 H Pulse Oximetry 97 98 Oxygen Delivery Method 07/07/23 03:00 07/07/23 03:00 07/07/23 03:30 Temperature Pulse Rate 87 87 Respiratory Rate 24 24 Blood Pressure 173/93 H Pulse Oximetry 98 98 Oxygen Delivery Method 07/07/23 03:30 07/07/23 04:00 07/07/23 04:00 Temperature 97.9 F Pulse Rate Respiratory Rate Blood Pressure 155/90 H 163/95 H Pulse Oximetry Oxygen Delivery Method 07/07/23 04:00 07/07/23 04:30 07/07/23 04:30 Temperature Pulse Rate 93 H 90 Respiratory Rate 24 24 Blood Pressure 159/88 H Pulse Oximetry 98 96 Oxygen Delivery Method 07/07/23 05:00 07/07/23 05:00 07/07/23 05:00 Temperature Pulse Rate 94 H Respiratory Rate 24 Blood Pressure 154/78 H Pulse Oximetry 99 Oxygen Delivery Method Mechanical Ventilation 07/07/23 05:30 07/07/23 05:30 07/07/23 06:00 Temperature Pulse Rate 90 101 H Respiratory Rate 24 24 Blood Pressure 157/93 H Pulse Oximetry 99 99 Oxygen Delivery Method 07/07/23 06:00 Temperature Pulse Rate Respiratory Rate Blood Pressure 170/95 H Pulse Oximetry Oxygen Delivery Method Fraction of Inspired Oxygen 100 Oxygen Delivery Method Mechanical Ventilation Oxygen Flow Rate 90 Narrative Exam Narrative: Elderly woman sedated and intubated in the ICU HEENT-unremarkable Lungs-good breath sounds although more prominent and normal-sounding on left verses right. No wheezes or crackles. Heart-irregular Abdomen-positive bowel tones Extremities-bruising as noted, no edema. Good pulses posterior tib and dorsalis pedis bilateral with excellent capillary refill at the toes Objective Labs 07/07/23 05:58 07/07/23 05:58 Labs: Laboratory Results - last 24 hr 07/06/23 07/07/23 12:20 05:58 WBC 15.3 H RBC 4.05 Hgb 12.5 Hct 38.5 MCV 95.0 MCH 30.8 MCHC 32.5 RDW 13.2 Plt Count 181 Neut % (Auto) Not Reportable Lymph % (Auto) Not Reportable [place] % (Auto) Not Reportable Eos % (Auto) Not Reportable Baso % (Auto) Not Reportable Lymph # (Auto) Not Reportable [place] # (Auto) Not Reportable Baso # (Auto) Not Reportable PT 12.4 INR 1.1 ABG Sample Site Right radial ABG pH 7.41 ABG pCO2 37.8 ABG pO2 62 L ABG HCO3 24 ABG Total CO2 25 ABG O2 Saturation 92 L ABG Base Excess -1.0 FiO2 85 Sodium 138 Potassium 3.2 L Chloride 102 Carbon Dioxide 28 BUN 54 H Creatinine 1.17 H Estimated GFR 47 L BUN/Creatinine Ratio 46.2 H Glucose 127 H Calcium 8.8 Total Bilirubin 0.3 AST 44 H ALT 73 H Alkaline Phosphatase 83 Total Protein 6.3 Albumin 3.0 L Globulin 3.3 Albumin/Globulin Ratio 0.9 L PFSH Medical History Symptomatic anemia Port-A-Cath in place Scoliosis Arthritis Pulmonary nodule Fallopian tube carcinoma Essential hypertension Surgical History Status post hip hemiarthroplasty (04/01/22) History of lung biopsy (2016) S/P total abdominal hysterectomy and bilateral salpingo-oophorectomy (~2013) History of partial pancreatectomy Status post exploratory laparotomy Status post splenectomy (2015) Social History household members: spouse Smoking Status: Former smoker alcohol intake: former Assessment & Plan Assessment & Plan narrative: 1. Postop day 3, status post exploratory laparotomy/lysis of adhesions-appears to be doing well from a pure surgical standpoint. Positive bowel tones. Initially had bowel movements not really any since then, although no input. No evidence of surgical complication. 2. Respiratory-patient required re-intubation yesterday. Stable on the ventilator. Oxygen requirement is down slightly over its peak which was 80% FiO2 now about 70%. Did not really tolerate further reductions. Chest x-ray looks perhaps minimally better probably from a pulmonary edema standpoint given this significant urine output. I am going to go ahead and get a sputum culture started since we do have access via the endotracheal tube. May not be a source of any useful information but may provide some guidance. Continues on vanco for her positive MRSA screen as well as ceftriaxone and Flagyl given apparent history of aspiration. Not surprising that she failed her trial this morning. She still has a very high oxygen requirement and I think has a long ways from coming off the ventilator unfortunately. 3. Cardiac-patient remains in atrial fibrillation with overall controlled rate with the IV diltiazem. Blood pressure quite elevated. I am going to add some topical nitroglycerin ointment to see if we can bring her blood pressure down somewhat. I do not want to done per blood pressure too quickly. She is consistently got an outpatient blood pressure in the 150s to 160s least off and on. However numbers like this morning's 170/100 are too high. 4. Fluids/electrolytes/nutrition-patient continues on TPN. Continue to minimize fluids at this point and maximize diuresis. 5. VTE prophylaxis-subcu heparin initiated by tele data conversion analyst service. Continue SCDs as well. Patient remains critically ill ventilated requiring significant ventilatory support. Also quite hypertensive and remains in the atrial fibrillation. Chest x-ray maybe show some improvement and her FiO2 is down slightly. However no dramatic changes. Dramatic changes not really expected at this point. Patient had discussed with staff prior to being intubated for surgery that she would not want a long-term course on the ventilator. She was very adamant however yesterday that she did want to go back on the ventilator if that is the way to keep her alive. Makes it difficult to know what exactly to do it a point to suggest that we have crossed her threshold for her desire for no long-term care on the ventilator. Discussed briefly with the patient's spouse [id number] yesterday. He would like to honor her wishes but will rely on medical staff probably mostly myself for guidance in this regard. At the moment certainly need to continue with current therapies without change. Again hopeful for some evidence of significant clinical improvement in the next 48 hours that would make us all feel more comfortable continuing along this course. However if there is no clinical improvement in that timeframe it may well be more appropriate to consider comfort care and extubation given patient's previous expressed wishes.
[2023-07-07] MEDS: fentaNYL 1,000 MCG in DEXTROSE 5% IN WATER 230 ML 10.465 MCG IV (06:53)
[2023-07-07 07:04] LABS: Neutrophils Absolute Manual 13770 /uL (3000-5900); Total Cells Counted 100
[2023-07-07 07:05] LABS: Anisocytosis 1+
--- NOTE | 2023-07-07 07:38 | PC.NURSE ---
Addendum entered by Syl Powers R.N. 07/07/23 18:15: Intubated and sedated, opens eyes to verbal stimuli, PERRL 2mm and sluggish, RASS between -2 and +1, with pt reaching for ETT, not able to follow commands, VSS, afebrile, 2+ L ankle edema with some purpura, 1+ left leg edema, afib 66-80's, #8 ETT/21 at teeth, vent AC FiO2 70% TV 380 RR 24 PEEP 5, lungs clear with occasional rhonchi, suctioned for small amts white/creamy secretions, O2 sats >92%, abd soft with BS, no BM, OGT 55cm at lip to LIS for bilious drainage, campos draining clear yellow urine, skin warm and dry, midline abd incision dsg intact and marked for old drainage, PICC ED patent, flushes well but does not draw back blood, lab to draw labs, cedric soft wrist restraints on as ordered, bed low and locked, will continue monitor. Original Note: Day shift note: Pt failed SBT trial this morning when sedation was turned down and pt was very agitated, grasping side rails of bed, not following commands, FiO2 remains at 70% high demand O2. Sedation turned back up, increasing Propofol to 20mcg/kg/min, will continue to monitor.
[2023-07-07] MEDS: POTASSIUM CHLORIDE IN WATER 10 MEQ/100 ML PIGGYBACK 100 MEQ IV ×8 (08:54→23:38)
[2023-07-07] MEDS: VANCOMYCIN 750 MG/150 ML PIGGYBACK 150 MG IV (08:54)
[2023-07-07] MEDS: HEPARIN 5,000 UNIT/ML VIAL 5000 UNIT SUBCUT (08:55)
[2023-07-07] MEDS: PANTOPRAZOLE 40 MG VIAL IV (08:55)
[2023-07-07] MEDS: NITROGLYCERIN OINT 1 INCH/GM OINT...G. 1.5 INCH TOP ×2 (09:10→12:37)
[2023-07-07 09:40] LABS: Magnesium 1.6 mg/dL (1.6-2.3); Phosphorous 3.4 mg/dL (2.8-4.1); Triglycerides 77 mg/dL (35-150)
[2023-07-07 09:47] LABS: Prealbumin 14.5 mg/dL (17.6-36.0)
--- NOTE | 2023-07-07 09:47 | P.TELICUPN_ITS ---
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: Yes Patient Location: ICU Provider location (State): [place] Other participants/roles: ALLEN Mcpherson Interval history: No acute issues overnight Remains on TPN Not on pressors On diltiazem 5 mg/hr HR ~90s On PEEP 5 and FIO2 70% Current Medications Current Medications Medications: Home Medications acetaminophen 325 mg capsule (Tylenol) 650 mg (2 x 325 mg) PO QID PRN pain #60 caps 05/22/21 [Rx Confirmed 07/02/23] prochlorperazine maleate 10 mg tablet (Compazine) 10 mg PO Q6H PRN Nausea 05/26/21 [History Confirmed 07/02/23] furosemide 20 mg tablet 40 mg (2 x 20 mg) PO DAILY #180 tabs 04/12/23 [Rx Confirmed 07/02/23] bevacizumab 25 mg/mL intravenous solution (Avastin) 25 mg IV QMONTH 05/14/23 [History Confirmed 07/02/23] carvedilol phosphate 40 mg capsule,[id number] multiphase See Rx Instructions PO DAILY 05/14/23 [History Confirmed 07/02/23] gabapentin 100 mg capsule 200 mg PO DAILY 05/14/23 [History Confirmed 07/02/23] mirabegron 25 mg tablet,extended release 24 hr (Myrbetriq) 25 mg PO DAILY 05/14/23 [History Confirmed 07/02/23] telmisartan 40 mg tablet 40 mg PO BID 05/14/23 [History Confirmed 07/02/23] felodipine 2.5 mg tablet,extended release 24 hr 2.5 mg PO DAILY #90 tabs 06/28/23 [Rx Confirmed 07/02/23] Visit Medications (administered) Generic Name Dose Route Start Last Admin Trade Name Freq PRN Reason Stop Dose Admin Chlorhexidine Gluconate 15 ml 07/06/23 12:00 07/07/23 05:55 Chlorhexidine Gluconate 15 Ml Cup PO 15 ml Q6HR KASHMIR Administration Diphenhydramine HCl 25 mg 07/02/23 08:23 07/02/23 08:34 Diphenhydramine 50 Mg/Ml Vial IV 25 mg Q4HR PRN Administration Itching Furosemide 40 mg 07/06/23 12:00 07/07/23 00:52 Furosemide 40 Mg/4 Ml Vial IV 40 mg Q12HR KASHMIR Administration Heparin Sodium (Porcine) 5,000 unit 07/05/23 21:00 07/07/23 08:55 Heparin 5,000 Unit/Ml Vial SUBCUT 5,000 unit BID KASHMIR Administration Hydromorphone HCl 2 mg 07/02/23 09:10 07/04/23 11:17 Hydromorphone 2 Mg Inj IV 2 mg Q2H PRN Administration Pain, Severe (7-10) DILTIAZEM 125 mg in 125 mls @ 5 mls/hr 07/04/23 10:15 07/06/23 21:14 Diltiazem 125 Mg/125 Ml-D5w IV 5 mg/hr TITRATE KASHMIR 5 mls/hr Administration Protocol 5 MG/HR Fat Emulsion Intravenous 50 gm in 250 mls @ 25 mls/hr 07/05/23 18:00 07/06/23 05:26 Clinolipid 20% IV Infused [id number] KASHMIR Infusion Ceftriaxone Sodium 2,000 mg/ 100 mls @ 200 mls/hr 07/04/23 16:00 07/06/23 16:51 Sodium Chloride IV Infused Q24H KASHMIR Infusion Phenylephrine HCl 20,000 mcg/ 250 mls @ 75 mls/hr 07/04/23 15:58 07/05/23 04:30 Dextrose IV 0 mcg/min TITRATE KASHMIR 0 mls/hr Titration Protocol 100 MCG/MIN dexmedeTOMIDine in 0.9 % NaCL 400 mcg in 100 mls @ 3.214 mls/hr 07/05/23 18:45 07/07/23 04:40 Precedex IV 1 mcg/kg/hr TITRATE KASHMIR 16.07 mls/hr Administration Protocol 0.2 MCG/KG/HR Propofol 1,000 mg in 100 mls @ 1.794 mls/hr 07/06/23 09:30 07/07/23 06:28 Propofol IV 20 mcg/kg/min TITRATE KASHMIR 7.176 mls/hr Titration Protocol 5 MCG/KG/MIN Fentanyl 1,000 mcg/ Dextrose 250 mls @ 10.465 mls/hr 07/06/23 09:30 07/07/23 06:53 IV 0.7 mcg/kg/hr TITRATE KASHMIR 10.465 mls/hr Administration Protocol 0.7 MCG/KG/HR Multivitamins 10 ml/ Chromium/ 1,013 mls @ 42.208 mls/hr 07/06/23 18:00 07/06/23 17:38 Copper/Manganese/Seleni/Zn 1 IV 07/07/23 17:59 42.208 mls/hr ml/ Thiamine HCl 100 mg/ 1800 KASHMIR Administration Famotidine 10 mg/ Amino Acids/ Electrolytes Vancomycin HCl 750 mg in 150 mls @ 150 mls/hr 07/07/23 08:00 07/07/23 08:54 Vancomycin IV 150 mls/hr Q24H KASHMIR Administration POTASSIUM CHLORIDE IN WATER 10 meq in 100 mls @ 100 mls/hr 07/07/23 07:00 07/07/23 08:54 Potassium Cl 10 Meq/100 Ml Diane IV 07/07/23 12:59 100 mls/hr Q1H KASHMIR Administration Insulin Human Lispro 0 unit 07/04/23 18:00 07/07/23 07:29 Insulin Lispro 100 Unit/Ml 3ml Vial SUBCUT Not Given Q6H [facility] Protocol Metoprolol Tartrate 5 mg 07/05/23 11:49 07/07/23 05:55 Metoprolol Tartrate 5 Mg/5 Ml Inj IV 5 mg Q6H KASHMIR Administration Nitroglycerin 1.5 inch 07/07/23 08:30 07/07/23 09:10 Nitroglycerin Oint 1 Inch/Gm Oint...G. TOP 1.5 inch Q4H KASHMIR Administration Ondansetron HCl 4 mg 07/02/23 06:00 07/07/23 06:22 Ondansetron 4 Mg/2 Ml Inj IV Not Given Q6HR [facility] Pantoprazole Sodium 40 mg 07/07/23 09:00 07/07/23 08:55 Pantoprazole 40 Mg Vial IV 40 mg DAILY KASHMIR Administration Prochlorperazine 10 mg 07/02/23 19:10 07/04/23 11:16 Prochlorperazine 10 Mg/2 Ml Vial IV 10 mg Q6HR PRN Administration Nausea Objective Ventilator Parameters: Ventilator Settings FiO2 50 RT Vent Frequency 24 Ventilator Tidal Volume 380 Exhaled Vt/kg IBW 52 Positive End Expiratory 5 Pressure Inspiratory Phase Time 0.8 I:E Ratio 1:2.1 Patient Position HOB >= 30 degrees Labs 07/07/23 05:58 07/07/23 05:58 Labs: Laboratory Results - last 24 hr 07/06/23 07/07/23 12:20 05:58 WBC 15.3 H RBC 4.05 Hgb 12.5 Hct 38.5 MCV 95.0 MCH 30.8 MCHC 32.5 RDW 13.2 Plt Count 181 Neut % (Auto) Not Reportable Lymph % (Auto) Not Reportable [place] % (Auto) Not Reportable Eos % (Auto) Not Reportable Baso % (Auto) Not Reportable Lymph # (Auto) Not Reportable [place] # (Auto) Not Reportable Baso # (Auto) Not Reportable Total Counted 100 Seg Neutrophils % 89.0 H Band Neutrophils % 1.0 L Lymphocytes % (Manual) 3.0 L Monocytes % (Manual) 7.0 Neutrophils # (Manual) 67408 H RBC Morphology See below Anisocytosis 1+ H PT 12.4 INR 1.1 ABG Sample Site Right radial ABG pH 7.41 ABG pCO2 37.8 ABG pO2 62 L ABG HCO3 24 ABG Total CO2 25 ABG O2 Saturation 92 L ABG Base Excess -1.0 FiO2 85 Sodium 138 Potassium 3.2 L Chloride 102 Carbon Dioxide 28 BUN 54 H Creatinine 1.17 H Estimated GFR 47 L BUN/Creatinine Ratio 46.2 H Glucose 127 H Calcium 8.8 Total Bilirubin 0.3 AST 44 H ALT 73 H Alkaline Phosphatase 83 Total Protein 6.3 Albumin 3.0 L Globulin 3.3 Albumin/Globulin Ratio 0.9 L Exam Vital Signs (past 8 hours): - 07/07/23 02:00 07/07/23 02:00 07/07/23 02:30 Temperature Pulse Rate 82 Respiratory Rate 24 Blood Pressure 155/89 H 156/86 H Pulse Oximetry 97 Oxygen Delivery Method Oxygen Flow Rate 07/07/23 02:30 07/07/23 03:00 07/07/23 03:00 Temperature Pulse Rate 89 87 Respiratory Rate 24 24 Blood Pressure 173/93 H Pulse Oximetry 98 98 Oxygen Delivery Method Oxygen Flow Rate 07/07/23 03:30 07/07/23 03:30 07/07/23 04:00 Temperature 97.9 F Pulse Rate 87 Respiratory Rate 24 Blood Pressure 155/90 H Pulse Oximetry 98 Oxygen Delivery Method Oxygen Flow Rate 07/07/23 04:00 07/07/23 04:00 07/07/23 04:30 Temperature Pulse Rate 93 H 90 Respiratory Rate 24 24 Blood Pressure 163/95 H Pulse Oximetry 98 96 Oxygen Delivery Method Oxygen Flow Rate 07/07/23 04:30 07/07/23 05:00 07/07/23 05:00 Temperature Pulse Rate Respiratory Rate Blood Pressure 159/88 H 154/78 H Pulse Oximetry Oxygen Delivery Method Mechanical Ventilation Oxygen Flow Rate 07/07/23 05:00 07/07/23 05:30 07/07/23 05:30 Temperature Pulse Rate 94 H 90 Respiratory Rate 24 24 Blood Pressure 157/93 H Pulse Oximetry 99 99 Oxygen Delivery Method Oxygen Flow Rate 07/07/23 06:00 07/07/23 06:00 07/07/23 06:30 Temperature Pulse Rate 101 H 96 H Respiratory Rate 24 26 H Blood Pressure 170/95 H Pulse Oximetry 99 99 Oxygen Delivery Method Oxygen Flow Rate 07/07/23 06:30 07/07/23 07:00 07/07/23 07:00 Temperature Pulse Rate 96 H Respiratory Rate 24 Blood Pressure 164/90 H Pulse Oximetry 97 98 Oxygen Delivery Method Mechanical Ventilation Oxygen Flow Rate 70 07/07/23 07:00 07/07/23 07:30 07/07/23 07:30 Temperature Pulse Rate 101 H Respiratory Rate 24 Blood Pressure 172/105 H 175/85 H Pulse Oximetry 99 Oxygen Delivery Method Oxygen Flow Rate 07/07/23 08:00 07/07/23 08:00 07/07/23 09:00 Temperature 98.6 F Pulse Rate 88 Respiratory Rate 24 Blood Pressure 171/106 H Pulse Oximetry 97 Oxygen Delivery Method Oxygen Flow Rate 07/07/23 09:10 Temperature Pulse Rate 93 H Respiratory Rate Blood Pressure 179/86 H Pulse Oximetry Oxygen Delivery Method Oxygen Flow Rate Fraction of Inspired Oxygen 100 Oxygen Delivery Method Mechanical Ventilation Oxygen Flow Rate 70 Narrative Exam Narrative: Intubated and sedated Assessment & Plan Assessment & Plan narrative: NEURO: # Acute encephalopathy -- Secondary to sepsis, toxic metabolic encephalopathy, and deliriuym -- Avoid BZD -- Consider adding atypical antipsychotic if remains encephalopathy -- Cont frequent reorientation RESP: # Acute hypoxemia respiratory failure -- Secondary to sepsis casuing acute lung injury and query component of pulmomary edema -- On vanc/ceftriaxone -- Titrate down FIO2 -- Daily SAT and SBT once FiO2 is less than 60% -- Cont diuresis to seek net negative fluid balance -- HOB elevation -- Aspiration precaution -- Goal SpO2 > 88% CVS: # A fib w/ RVR -- Rate controlled w/ diltiazem gtt -- GOal HR < 110 -- CHADVASC score 4 -> need systemic AC when cleared by surgery -- High lytes goal -- Recommend starting oral diltiazem once cleared by surgery to use enteral gut # HTN -- Goal SBP < 140 : # Azotemia -- Secondary to hyperalimentation -- Trend BMP -- Monitor UOP ID: # Severe sepsis -- Cx negative to date -- On vanc/ceftriaxone -- Recommend adding flagyl -- Follow up cx data GI: # SBO -- s/p SARITA -- On TPN -- Management per primary surgical team ENDO: -- Goal BS < 180 -- On ISS Time Spent With Patient Time with patient: 50 to 69 minutes with 50% spent counseling/coordinating care
[2023-07-07] MEDS: propofoL 1,000 MG/100 ML VIAL 7.176 MG IV ×2 (10:09→23:21)
[2023-07-07 10:26] LABS: Fractionated Inspired Oxygen 70; HCO3 ABG 23 mmol/L (23-27); Oxygen Saturation ABG 96 % (95-100); PCO2 ABG 38.6 mmHg (35-45); PO2 ABG 82 mmHg (80-100); TCO2 ABG 24 mmol/L (23-27); pH ABG 7.38 (7.35-7.45)
[2023-07-07 10:27] LABS: Blood Gas Collection Site Left Brachial
--- NOTE | 2023-07-07 10:49 | PM.PNPO.1 ---
Subjective Subjective Date Patient Seen: 07/07/23 Time Patient Seen: 10:50 Interval history: Remains intubated with IV antibiotics and diuretics. Sedated Exam Vital Signs (past 8 hours): - 07/07/23 03:00 07/07/23 03:00 07/07/23 03:30 Temperature Pulse Rate 87 87 Respiratory Rate 24 24 Blood Pressure 173/93 H Pulse Oximetry 98 98 Oxygen Delivery Method Oxygen Flow Rate 07/07/23 03:30 07/07/23 04:00 07/07/23 04:00 Temperature 97.9 F Pulse Rate Respiratory Rate Blood Pressure 155/90 H 163/95 H Pulse Oximetry Oxygen Delivery Method Oxygen Flow Rate 07/07/23 04:00 07/07/23 04:30 07/07/23 04:30 Temperature Pulse Rate 93 H 90 Respiratory Rate 24 24 Blood Pressure 159/88 H Pulse Oximetry 98 96 Oxygen Delivery Method Oxygen Flow Rate 07/07/23 05:00 07/07/23 05:00 07/07/23 05:00 Temperature Pulse Rate 94 H Respiratory Rate 24 Blood Pressure 154/78 H Pulse Oximetry 99 Oxygen Delivery Method Mechanical Ventilation Oxygen Flow Rate 07/07/23 05:30 07/07/23 05:30 07/07/23 06:00 Temperature Pulse Rate 90 101 H Respiratory Rate 24 24 Blood Pressure 157/93 H Pulse Oximetry 99 99 Oxygen Delivery Method Oxygen Flow Rate 07/07/23 06:00 07/07/23 06:30 07/07/23 06:30 Temperature Pulse Rate 96 H Respiratory Rate 26 H Blood Pressure 170/95 H 164/90 H Pulse Oximetry 99 Oxygen Delivery Method Oxygen Flow Rate 07/07/23 07:00 07/07/23 07:00 07/07/23 07:00 Temperature Pulse Rate 96 H Respiratory Rate 24 Blood Pressure 172/105 H Pulse Oximetry 97 98 Oxygen Delivery Method Mechanical Ventilation Oxygen Flow Rate 70 07/07/23 07:30 07/07/23 07:30 07/07/23 08:00 Temperature Pulse Rate 101 H Respiratory Rate 24 Blood Pressure 175/85 H 171/106 H Pulse Oximetry 99 Oxygen Delivery Method Oxygen Flow Rate 07/07/23 08:00 07/07/23 09:00 07/07/23 09:10 Temperature 98.6 F Pulse Rate 88 93 H Respiratory Rate 24 Blood Pressure 179/86 H Pulse Oximetry 97 Oxygen Delivery Method Oxygen Flow Rate Fraction of Inspired Oxygen 100 Oxygen Delivery Method Mechanical Ventilation Oxygen Flow Rate 70 Narrative Exam Narrative: unchanged, abdomen benign Objective Labs 07/07/23 05:58 07/07/23 05:58 Labs: Laboratory Results - last 24 hr 07/06/23 07/07/23 07/07/23 12:20 05:58 09:32 WBC 15.3 H RBC 4.05 Hgb 12.5 Hct 38.5 MCV 95.0 MCH 30.8 MCHC 32.5 RDW 13.2 Plt Count 181 Neut % (Auto) Not Reportable Lymph % (Auto) Not Reportable [place] % (Auto) Not Reportable Eos % (Auto) Not Reportable Baso % (Auto) Not Reportable Lymph # (Auto) Not Reportable [place] # (Auto) Not Reportable Baso # (Auto) Not Reportable Total Counted 100 Seg Neutrophils % 89.0 H Band Neutrophils % 1.0 L Lymphocytes % (Manual) 3.0 L Monocytes % (Manual) 7.0 Neutrophils # (Manual) 71574 H RBC Morphology See below Anisocytosis 1+ H PT 12.4 INR 1.1 ABG Sample Site Right radial Left brachial ABG pH 7.41 7.38 ABG pCO2 37.8 38.6 ABG pO2 62 L 82 ABG HCO3 24 23 ABG Total CO2 25 24 ABG O2 Saturation 92 L 96 ABG Base Excess -1.0 -2.0 FiO2 85 70 Sodium 138 Potassium 3.2 L Chloride 102 Carbon Dioxide 28 BUN 54 H Creatinine 1.17 H Estimated GFR 47 L BUN/Creatinine Ratio 46.2 H Glucose 127 H Calcium 8.8 Phosphorus 3.4 Magnesium 1.6 Total Bilirubin 0.3 AST 44 H ALT 73 H Alkaline Phosphatase 83 Total Protein 6.3 Albumin 3.0 L Globulin 3.3 Albumin/Globulin Ratio 0.9 L Prealbumin 14.5 L Triglycerides 77 PFSH Medical History Symptomatic anemia Port-A-Cath in place Scoliosis Arthritis Pulmonary nodule Fallopian tube carcinoma Essential hypertension Surgical History Status post hip hemiarthroplasty (04/01/22) History of lung biopsy (2016) S/P total abdominal hysterectomy and bilateral salpingo-oophorectomy (~2013) History of partial pancreatectomy Status post exploratory laparotomy Status post splenectomy (2016) Social History household members: spouse Smoking Status: Former smoker alcohol intake: former Assessment & Plan Post-op Postoperative Procedures: Procedures Operation Date: 07/04/23 10:00 Actual Procedure Side Surgeon p Exploratory Laparotomy GEN Zayra Granados MD Postoperative status narrative: Respiratory failure, resolution of SBO but high risk for ileus. Postoperative plan narrative: Can use NGT for meds, continue TPN for now, return of bowel function is not complete to support nutrition Time Spent With Patient Time with patient: less than 15 minutes
[2023-07-07] MEDS: MAGNESIUM SULFATE 2 GM/50 ML PIGGYBACK IV ×2 (11:22→22:42)
[2023-07-07] MEDS: metroNIDAZOLE 500 MG/100 ML PIGGYBACK 100 MG IV ×2 (11:23→18:02)
--- NOTE | 2023-07-07 11:47 | DIET.CONS ---
Dietary Consultation Note Admission Date: 07/02/2023 01:27 Assessment: 83y F admitted for SBO s/p release of adhesion on ventilator due to respiratory failure referred to nutrition for TPN recommendations. Pt was reintubated yesterday morning due to respiratory distress and fluid overload status. 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 Pt being diuresed, not requiring pressor support, BP elevated 150s/100s being treated by berry planter. Pt's renal fxn almost normalized after FAITH. Ht: 175.26 cm Wt: 55.5 kg BMI: 17.6 UBW: 55kg Last BM: 07/06/23 (07/06/23 00:47) MNA: 11 Chris Score: 13 Diet: 07/06/23 09:53 NPO Diet Diet Modifications: May Advance Diet as Tolerated: No Safety Tray needed?: No NPO Type: Strict Labs: RBC 4.05 X10^6/uL (4.0-5.2) 07/07/23 05:58 Hgb 12.5 g/dL (12.0-16.0) 07/07/23 05:58 Hct 38.5 % (36-46) 07/07/23 05:58 Creatinine 1.17 mg/dL (0.52-1.04) H 07/07/23 05:58 Nutrition Diagnosis: chronic moderate protein calorie malnutrition r/t difficulty eating aeb BMI 17.7 (severe for age), despite nutrition consultations pt unable to regain weight lost during chemotherapy/radiation, pt with some fear of eating due to borderline CKD. Interventions: 1. Recc advancing TPN rate to 62mL/h for total daily volume 1.5L Clinimix E with 250mL IVFE M, W, F providing 1534kcals (28kcal/kg), 75g PRO (1.3g/kg), and 1.5L fluids (27mL/kg). 2. Recc repleting electrolytes per protocol and adding 100mg Thiamine daily while TPN is in use. Monitoring/Evaluations: While pt has had return of bowel tones and one BM, pt remains high risk for ileus which indicates continuation of TPN. Electronically Signed by: Neda Nguyễn 07/07/23 11:47 Clinical Dietitian [address] [id number]
[2023-07-07] MEDS: cefTRIAXone 2,000 MG in SODIUM CHLORIDE 0.9% 100 ML 200 MG IV (16:12)
[2023-07-07] MEDS: dilTIAZem 30 MG TABLET PO ×2 (16:13→22:05)
[2023-07-07] MEDS: ENOXAPARIN 40 MG/0.4 ML SYRINGE 55 MG SUBCUT (17:01)
[2023-07-07] MEDS: FAT EMULSIONS 50 GM/250 ML EMULSION IV (17:46)
[2023-07-07] MEDS: AA 5 %/CALCIUM/LYTES/DEXT 20 % 1,500 ML with MULTIVITAMIN 10 ML, TRACE ELEMENTS 1 ML, T... 64 ML IV (17:46)
[2023-07-07] MEDS: DILTIAZEM 125 MG/125 ML PIGGYBACK 10 MG IV (18:02)
--- NOTE | 2023-07-07 19:07 | PM.ICURNDS ---
- Date Patient Seen: 07/07/23 Time Patient Seen: 20:37 :: This patient was seen via real time interactive two-way audiovisual telecommunication. Note: Patient remains on ventilator 70% fio2 continuing to diurese On diltiazem gtt for rate control, PO dilt started OK to use NGT for meds, on TPN for nutrition Will recheck K and Mag level, ordered. On exam she is sedated, intubated. HR 67 currently on dilt gtt. all other VS WNL on monitor.
[2023-07-07 21:58] LABS: HEMOLYSIS 27 (0-50); Magnesium 1.9 mg/dL (1.6-2.3); Potassium 3.6 mmol/L (3.4-5.1)
[2023-07-08] VITALS (58 sets, daily range): BP systolic 95–123; BP diastolic 54–68; PULSE 55–88; RESP 15–41; TEMP 36.9–37.6; O2SAT 95–100
[2023-07-08] MEDS: FUROSEMIDE 40 MG/4 ML VIAL IV ×3 (00:09→23:51)
[2023-07-08] MEDS: CHLORHEXIDINE GLUCONATE 15 ML CUP PO ×5 (00:09→23:51)
[2023-07-08] MEDS: POTASSIUM CHLORIDE IN WATER 10 MEQ/100 ML PIGGYBACK 100 MEQ IV ×2 (00:53→02:07)
[2023-07-08] MEDS: metroNIDAZOLE 500 MG/100 ML PIGGYBACK 100 MG IV ×3 (02:32→17:49)
[2023-07-08] MEDS: dilTIAZem 30 MG TABLET PO ×3 (04:12→22:06)
[2023-07-08] MEDS: fentaNYL 1,000 MCG in DEXTROSE 5% IN WATER 230 ML 14.95 MCG IV (04:57)
[2023-07-08] MEDS: ENOXAPARIN 40 MG/0.4 ML SYRINGE 55 MG SUBCUT (04:58)
[2023-07-08] MEDS: dexmedeTOMIDine in 0.9 % NaCL 400 MCG/100 ML PLAST..BAG 16.07 MCG IV ×4 (05:40→23:25)
[2023-07-08] MEDS: DILTIAZEM 125 MG/125 ML PIGGYBACK 10 MG IV ×2 (05:52→17:38)
[2023-07-08 06:32] LABS: Hemoglobin 11.3 g/dL (12.0-16.0); Mean Corpuscular HGB Conc 33.2 % (30-36); Mean Corpuscular Hemoglobin 31.1 PG (26-34); Mean Corpuscular Volume 93.7 fL (80-100); Platelet Count 146 X10^3/uL (150-400); Red Blood Cell Count 3.63 X10^6/uL (4.0-5.2); Red Cell Distribution Width 13.4 % (11.6-14.8); White Blood Cell Count 12.4 X10^3/uL (4.5-11.0)
[2023-07-08 06:33] LABS: Add Manual Diff / Slide Review YES
[2023-07-08 06:37] LABS: BUN Creatinine Ratio 50.9 (6-22); Blood Urea Nitrogen 55 mg/dL (7-17); Calcium 8.4 mg/dL (8.4-10.2); Carbon Dioxide 28 mmol/L (22-32); Chloride 98 mmol/L (98-107); Estimated Glomerular Filt Rate 52 mL/min (>60); Glucose 136 mg/dL (80-110); HEMOLYSIS < 15 (0-50); Magnesium 2.6 mg/dL (1.6-2.3); Potassium 3.8 mmol/L (3.4-5.1); Sodium 131 mmol/L (137-145)
[2023-07-08 06:54] LABS: Neutrophils Absolute Manual 10416 /uL (3000-5900); Total Cells Counted 100
[2023-07-08 06:55] LABS: Anisocytosis 1+
[2023-07-08] MEDS: INSULIN LISPRO 100 UNIT/ML 3ML VIAL SUBCUT ×2 (07:02→12:21)
[2023-07-08 07:15] LABS: Phosphorous 3.4 mg/dL (2.8-4.1)
--- NOTE | 2023-07-08 07:18 | P.PN_ITS ---
Subjective Subjective Date Patient Seen: 07/08/23 Time Patient Seen: 07:18 Interval history: Patient remains sedated and intubated. Now using orogastric tube for medication so she has had oral metoprolol and oral diltiazem added to her regimen. Heart rate and blood pressure are adequately controlled with that. Heart rate certainly seems slower maybe even trying to convert to sinus rhythm. Had a proximally 3 L urine out yesterday (verses the 6 L the day prior). Ventilatory status essentially unchanged still requiring 70% FiO2 Electrolytes are okay. Renal function continues to slowly improve. White blood cell count drifting down Patient is still requiring similar amounts of sedation. X-ray still pending this morning but clearly no improvement from a respiratory standpoint, and way too much support required to even think about weaning or respiratory trials etcetera. Exam Vital Signs (past 8 hours): - 07/07/23 23:30 07/07/23 23:30 07/08/23 00:00 Temperature Pulse Rate 68 70 Respiratory Rate 25 H 27 H Blood Pressure 112/56 L Pulse Oximetry 96 96 Oxygen Delivery Method 07/08/23 00:00 07/08/23 00:25 07/08/23 00:25 Temperature 99.6 F Pulse Rate 69 Respiratory Rate 27 H Blood Pressure 121/57 L 112/61 Pulse Oximetry 96 Oxygen Delivery Method 07/08/23 00:30 07/08/23 00:30 07/08/23 01:00 Temperature Pulse Rate 74 Respiratory Rate 34 H Blood Pressure 114/68 Pulse Oximetry 96 Oxygen Delivery Method Mechanical Ventilation 07/08/23 01:00 07/08/23 01:00 07/08/23 01:30 Temperature Pulse Rate 72 73 Respiratory Rate 24 29 H Blood Pressure 119/60 Pulse Oximetry 95 96 Oxygen Delivery Method 07/08/23 01:30 07/08/23 02:00 07/08/23 02:00 Temperature Pulse Rate 71 Respiratory Rate 25 H Blood Pressure 102/57 L 110/61 Pulse Oximetry 99 Oxygen Delivery Method 07/08/23 02:30 07/08/23 02:30 07/08/23 03:00 Temperature Pulse Rate 70 Respiratory Rate 24 Blood Pressure 114/67 119/58 L Pulse Oximetry 99 Oxygen Delivery Method 07/08/23 03:00 07/08/23 03:30 07/08/23 03:30 Temperature Pulse Rate 66 64 Respiratory Rate 24 23 Blood Pressure 118/66 Pulse Oximetry 98 98 Oxygen Delivery Method 07/08/23 04:00 07/08/23 04:00 07/08/23 04:12 Temperature 98.4 F Pulse Rate 66 66 Respiratory Rate 23 Blood Pressure 113/65 113/65 Pulse Oximetry 98 Oxygen Delivery Method 07/08/23 04:30 07/08/23 04:30 07/08/23 05:00 Temperature Pulse Rate 65 64 Respiratory Rate 24 24 Blood Pressure 119/57 L Pulse Oximetry 99 99 Oxygen Delivery Method 07/08/23 05:00 07/08/23 05:00 07/08/23 05:30 Temperature Pulse Rate 65 Respiratory Rate 24 Blood Pressure 122/58 L Pulse Oximetry 99 Oxygen Delivery Method Mechanical Ventilation 07/08/23 05:30 07/08/23 06:00 07/08/23 06:00 Temperature Pulse Rate 62 Respiratory Rate 24 Blood Pressure 118/61 120/60 Pulse Oximetry 99 Oxygen Delivery Method Fraction of Inspired Oxygen 100 Oxygen Delivery Method Mechanical Ventilation Oxygen Flow Rate 70 Narrative Exam Narrative: Lungs-good breath sounds with the ventilator Heart-irregular minimally bradycardic Abdomen-nondistended, higher pitched bowel tones less frequent than yesterday Objective Labs 07/08/23 06:05 07/08/23 06:05 Labs: Laboratory Results - last 24 hr 07/07/23 07/07/23 07/07/23 05:58 09:32 21:40 WBC RBC Hgb Hct MCV MCH MCHC RDW Plt Count Neut % (Auto) Lymph % (Auto) [place] % (Auto) Eos % (Auto) Baso % (Auto) Lymph # (Auto) [place] # (Auto) Baso # (Auto) Total Counted Seg Neutrophils % Band Neutrophils % Lymphocytes % (Manual) Monocytes % (Manual) Eosinophils % (Manual) Neutrophils # (Manual) RBC Morphology Anisocytosis ABG Sample Site Left brachial ABG pH 7.38 ABG pCO2 38.6 ABG pO2 82 ABG HCO3 23 ABG Total CO2 24 ABG O2 Saturation 96 ABG Base Excess -2.0 FiO2 70 Sodium Potassium 3.6 Chloride Carbon Dioxide BUN Creatinine Estimated GFR BUN/Creatinine Ratio Glucose Calcium Phosphorus 3.4 Magnesium 1.6 1.9 Prealbumin 14.5 L Triglycerides 77 07/08/23 06:05 WBC 12.4 H RBC 3.63 L Hgb 11.3 L Hct 34.0 L MCV 93.7 MCH 31.1 MCHC 33.2 RDW 13.4 Plt Count 146 L Neut % (Auto) Not Reportable Lymph % (Auto) Not Reportable [place] % (Auto) Not Reportable Eos % (Auto) Not Reportable Baso % (Auto) Not Reportable Lymph # (Auto) Not Reportable [place] # (Auto) Not Reportable Baso # (Auto) Not Reportable Total Counted 100 Seg Neutrophils % 77.0 H Band Neutrophils % 7.0 Lymphocytes % (Manual) 9.0 L Monocytes % (Manual) 6.0 Eosinophils % (Manual) 1.0 L Neutrophils # (Manual) 17422 H RBC Morphology See below Anisocytosis 1+ H ABG Sample Site ABG pH ABG pCO2 ABG pO2 ABG HCO3 ABG Total CO2 ABG O2 Saturation ABG Base Excess FiO2 Sodium 131 L Potassium 3.8 Chloride 98 Carbon Dioxide 28 BUN 55 H Creatinine 1.08 H Estimated GFR 52 L BUN/Creatinine Ratio 50.9 H Glucose 136 H Calcium 8.4 Phosphorus 3.4 Magnesium 2.6 H Prealbumin Triglycerides [facility] Medical History Symptomatic anemia Port-A-Cath in place Scoliosis Arthritis Pulmonary nodule Fallopian tube carcinoma Essential hypertension Surgical History Status post hip hemiarthroplasty (04/01/22) History of lung biopsy (2016) S/P total abdominal hysterectomy and bilateral salpingo-oophorectomy (~2013) History of partial pancreatectomy Status post exploratory laparotomy Status post splenectomy (2015) Social History household members: spouse Smoking Status: Former smoker alcohol intake: former Assessment & Plan Assessment & Plan narrative: 1. Postop day 4, status post exploratory laparotomy/lysis of adhesions-patient's abdominal exam is changed a little bit she may have more of an ileus going on. Plan to x-ray her abdomen when we x-ray her chest as well this morning. Still okay to use her orogastric tube for medication, which seems to have helped. No evidence of significant complication 2. Respiratory-stable but not improving. Awaiting chest x-ray to see if there is any significant change. Urine output was significantly decreased yesterday over previous but renal function improving suggesting probable improvement in her heart failure. Continues on multiple broad-spectrum antibiotics. Sputum evaluation ordered but not yet collected. Not at a place where any sort of ventilator weaning would make any sense. 3. Cardiac-continues in atrial fibrillation although better rate control and blood pressure control with current medications. Maybe trying to convert to sinus there are some longer pauses as she is become a little bit more bradycardic. Urine output has diminished but continues. Heart failure/pulmonary edema should be improved therefore. Basically no changes today. 4. Fluids/electrolytes/nutrition-potassium normalized magnesium a bit on the high side if anything. No need for any replacement today. Continue with Lasix as ordered. Renal function continues to improve probably at baseline now. 5. VTE prophylaxis-switched over to full-dose Lovenox mg per kilos q.12 given her atrial fibrillation. Overall patient is now 48 hours after re-intubation and has certainly stabilized but no real evidence of improvement from a respiratory standpoint. She is still uncomfortable requiring fairly medium to high doses of sedation to keep her sedated and on the comfortable side. Her wishes previously been for no long course on the ventilator etcetera. She wanted her to be improving which is not the case at the current time however it has been only 48 hours. Will need to discuss with patient's spouse and or potentially other family members later today about goals of care in the next several days. Basically what point does not seem most appropriate if she is not improving to focus more on comfort care. Would that be after a 48 hours like today or would be more like a week very difficult decisions to come I think.
[2023-07-08] MEDS: VANCOMYCIN 750 MG/150 ML PIGGYBACK 150 MG IV (07:34)
--- NOTE | 2023-07-08 08:01 | DI.RAD.S_ITS ---
PROCEDURE: XR ABDOMEN MIN 2V INDICATIONS: ileus TECHNIQUE: 2 views of the abdomen were acquired. COMPARISON: [facility], CR, XR ABDOMEN 1V, 07/04/2023, 7:14. [facility], CR, XR ABDOMEN 1V, 07/03/2023, 15:50. FINDINGS: Surgical changes and devices: Interval placement of a nasogastric tube with the tip and side-port in the stomach. Bowel: No pneumoperitoneum. The bowel gas pattern is normal. Soft tissues: No masses; visualized solid organ contours appear normal in size. No suspicious abdominal calcifications. Airspace opacities in the lung bases as described on chest x-ray today. Bones: No suspicious bony abnormalities. Pedicular screw and ester fixation of L5-S1. Discectomy at L5-S1. Severe dextroscoliosis. IMPRESSION: 1. Nasogastric tube appears well position. 2. No dilated loops of bowel are seen. Dictated by: Brandon Chen M.D. on 07/08/2023 at 11:45 Approved by: Brandon Chen M.D. on 07/08/2023 at 11:46
--- NOTE | 2023-07-08 08:25 | DI.RAD.S_ITS ---
PROCEDURE: XR CHEST 1V INDICATIONS: pneumonia/resp failure TECHNIQUE: One view of the chest was acquired. COMPARISON: [facility], CR, XR CHEST 1V, 07/02/2023, 2:47. Outside Film, CT, CT CHEST WITH CONTRAST, 12/31/2022, 14:50. [facility], CR, XR CHEST 1V, 07/07/2023, 5:54. [facility], CR, XR CHEST 1V, 07/06/2023, 10:32. FINDINGS: Surgical changes and devices: Endotracheal tube, nasogastric tube, and right chest wall port is well positioned. Lungs and pleura: Diffuse ill-defined airspace opacities seen bilaterally on the prior study have improved. Focal area of airspace opacity in the right lower lung. Left lower lobe consolidation with air bronchograms. No pneumothorax. No significant pleural effusion. Mediastinum: Mediastinal contours appear normal. Heart size is normal. Bones and chest wall: No suspicious bony lesions. Overlying soft tissues appear unremarkable. IMPRESSION: 1. Previously described diffuse bilateral airspace opacities are improved. Persistent airspace opacities in the right lower lobe and left perihilar region. 2. Left retrocardiac infiltrate suspicious for pneumonia. 3. Endotracheal tube, nasogastric tube, and right chest wall port is well positioned. Dictated by: Brandon Chen M.D. on 07/08/2023 at 8:54 Approved by: Brandon Chen M.D. on 07/08/2023 at 9:01
--- NOTE | 2023-07-08 09:32 | PM.PN.EICU ---
Subjective Subjective IF CAMERA ACTIVATED, patient seen via real-time interactive audiovisual communication: Camera activated Consent obtained for tele-human resources supervisor care: Yes Patient Location: ICU Provider location (State): [place] Other participants/roles: Bedside RN Vida Bautista history: No acute issues overnight Diuresed and negative ~600 mL over the last 24 hours Remains on FiO2 70% and PEEP 5 Not following command and agitated when off sedation Current Medications Current Medications Medications: Home Medications acetaminophen 325 mg capsule (Tylenol) 650 mg (2 x 325 mg) PO QID PRN pain #60 caps 05/22/21 [Rx Confirmed 07/02/23] prochlorperazine maleate 10 mg tablet (Compazine) 10 mg PO Q6H PRN Nausea 05/26/21 [History Confirmed 07/02/23] furosemide 20 mg tablet 40 mg (2 x 20 mg) PO DAILY #180 tabs 04/12/23 [Rx Confirmed 07/02/23] bevacizumab 25 mg/mL intravenous solution (Avastin) 25 mg IV QMONTH 05/14/23 [History Confirmed 07/02/23] carvedilol phosphate 40 mg capsule,[id number] multiphase See Rx Instructions PO DAILY 05/14/23 [History Confirmed 07/02/23] gabapentin 100 mg capsule 200 mg PO DAILY 05/14/23 [History Confirmed 07/02/23] mirabegron 25 mg tablet,extended release 24 hr (Myrbetriq) 25 mg PO DAILY 05/14/23 [History Confirmed 07/02/23] telmisartan 40 mg tablet 40 mg PO BID 05/14/23 [History Confirmed 07/02/23] felodipine 2.5 mg tablet,extended release 24 hr 2.5 mg PO DAILY #90 tabs 06/28/23 [Rx Confirmed 07/02/23] Visit Medications (administered) Generic Name Dose Route Start Last Admin Trade Name Freq PRN Reason Stop Dose Admin Chlorhexidine Gluconate 15 ml 07/06/23 12:00 07/08/23 05:40 Chlorhexidine Gluconate 15 Ml Cup PO 15 ml Q6HR KASHMIR Administration Diltiazem HCl 30 mg 07/07/23 16:00 07/08/23 04:12 Diltiazem 30 Mg Tablet PO 30 mg Q6H KASHMIR Administration Diphenhydramine HCl 25 mg 07/02/23 08:23 07/02/23 08:34 Diphenhydramine 50 Mg/Ml Vial IV 25 mg Q4HR PRN Administration Itching Furosemide 40 mg 07/06/23 12:00 07/08/23 00:09 Furosemide 40 Mg/4 Ml Vial IV 40 mg Q12HR KASHMIR Administration Hydromorphone HCl 2 mg 07/02/23 09:10 07/04/23 11:17 Hydromorphone 2 Mg Inj IV 2 mg Q2H PRN Administration Pain, Severe (7-10) DILTIAZEM 125 mg in 125 mls @ 5 mls/hr 07/04/23 10:15 07/08/23 05:52 Diltiazem 125 Mg/125 Ml-D5w IV 10 mg/hr TITRATE KASHMIR 10 mls/hr Administration Protocol 5 MG/HR Fat Emulsion Intravenous 50 gm in 250 mls @ 25 mls/hr 07/05/23 18:00 07/08/23 04:13 Clinolipid 20% IV Infused [id number] KASHMIR Infusion Ceftriaxone Sodium 2,000 mg/ 100 mls @ 200 mls/hr 07/04/23 16:00 07/07/23 16:42 Sodium Chloride IV Infused Q24H KASHMIR Infusion Phenylephrine HCl 20,000 mcg/ 250 mls @ 75 mls/hr 07/04/23 15:58 07/05/23 04:30 Dextrose IV 0 mcg/min TITRATE KASHMIR 0 mls/hr Titration Protocol 100 MCG/MIN dexmedeTOMIDine in 0.9 % NaCL 400 mcg in 100 mls @ 3.214 mls/hr 07/05/23 18:45 07/08/23 05:40 Precedex IV 1 mcg/kg/hr TITRATE KASHMIR 16.07 mls/hr Administration Protocol 0.2 MCG/KG/HR Propofol 1,000 mg in 100 mls @ 1.794 mls/hr 07/06/23 09:30 07/08/23 00:36 Propofol IV 25 mcg/kg/min TITRATE KASHMIR 8.97 mls/hr Titration Protocol 5 MCG/KG/MIN Fentanyl 1,000 mcg/ Dextrose 250 mls @ 10.465 mls/hr 07/06/23 09:30 07/08/23 05:43 IV 0.7 mcg/kg/hr TITRATE KASHMIR 10.465 mls/hr Titration Protocol 0.7 MCG/KG/HR Vancomycin HCl 750 mg in 150 mls @ 150 mls/hr 07/07/23 08:00 07/08/23 07:34 Vancomycin IV 150 mls/hr Q24H KASHMIR Administration Metronidazole 500 mg in 100 mls @ 100 mls/hr 07/07/23 10:45 07/08/23 03:42 Flagyl IV Infused Q8H KASHMIR Infusion Multivitamins 10 ml/ Chromium/ 1,536 mls @ 64 mls/hr 07/07/23 18:00 07/07/23 17:46 Copper/Manganese/Seleni/Zn 1 IV 07/08/23 17:59 64 mls/hr ml/ Thiamine HCl 100 mg/ 1800 KASHMIR Administration Potassium Chloride 40 meq/ Magnesium Sulfate 2 gm/ Amino Acids/Electrolytes Insulin Human Lispro 0 unit 07/04/23 18:00 07/08/23 07:02 Insulin Lispro 100 Unit/Ml 3ml Vial SUBCUT 1 unit Q6H KASHMIR Administration Protocol Metoprolol Tartrate 25 mg 07/07/23 18:00 07/08/23 05:54 Metoprolol Ir 25 Mg Tablet PO Not Given Q6HR KASHMIR Ondansetron HCl 4 mg 07/02/23 06:00 07/08/23 05:54 Ondansetron 4 Mg/2 Ml Inj IV Not Given Q6HR [facility] Pantoprazole Sodium 40 mg 07/07/23 09:00 07/07/23 08:55 Pantoprazole 40 Mg Vial IV 40 mg DAILY KASHMIR Administration Prochlorperazine 10 mg 07/02/23 19:10 07/04/23 11:16 Prochlorperazine 10 Mg/2 Ml Vial IV 10 mg Q6HR PRN Administration Nausea Objective Ventilator Parameters: Ventilator Settings FiO2 70 RT Vent Frequency 24 Ventilator Tidal Volume 380 Exhaled Vt/kg IBW 52 Positive End Expiratory 5 Pressure Inspiratory Phase Time 0.8 I:E Ratio 1:2.1 Patient Position HOB >= 30 degrees Labs 07/08/23 06:05 07/08/23 06:05 Labs: Laboratory Results - last 24 hr 07/07/23 07/07/23 07/07/23 05:58 09:32 21:40 WBC RBC Hgb Hct MCV MCH MCHC RDW Plt Count Neut % (Auto) Lymph % (Auto) [place] % (Auto) Eos % (Auto) Baso % (Auto) Lymph # (Auto) [place] # (Auto) Baso # (Auto) Total Counted Seg Neutrophils % Band Neutrophils % Lymphocytes % (Manual) Monocytes % (Manual) Eosinophils % (Manual) Neutrophils # (Manual) RBC Morphology Anisocytosis ABG Sample Site Left brachial ABG pH 7.38 ABG pCO2 38.6 ABG pO2 82 ABG HCO3 23 ABG Total CO2 24 ABG O2 Saturation 96 ABG Base Excess -2.0 FiO2 70 Sodium Potassium 3.6 Chloride Carbon Dioxide BUN Creatinine Estimated GFR BUN/Creatinine Ratio Glucose Calcium Phosphorus 3.4 Magnesium 1.6 1.9 Prealbumin 14.5 L Triglycerides 77 07/08/23 06:05 WBC 12.4 H RBC 3.63 L Hgb 11.3 L Hct 34.0 L MCV 93.7 MCH 31.1 MCHC 33.2 RDW 13.4 Plt Count 146 L Neut % (Auto) Not Reportable Lymph % (Auto) Not Reportable [place] % (Auto) Not Reportable Eos % (Auto) Not Reportable Baso % (Auto) Not Reportable Lymph # (Auto) Not Reportable [place] # (Auto) Not Reportable Baso # (Auto) Not Reportable Total Counted 100 Seg Neutrophils % 77.0 H Band Neutrophils % 7.0 Lymphocytes % (Manual) 9.0 L Monocytes % (Manual) 6.0 Eosinophils % (Manual) 1.0 L Neutrophils # (Manual) 35194 H RBC Morphology See below Anisocytosis 1+ H ABG Sample Site ABG pH ABG pCO2 ABG pO2 ABG HCO3 ABG Total CO2 ABG O2 Saturation ABG Base Excess FiO2 Sodium 131 L Potassium 3.8 Chloride 98 Carbon Dioxide 28 BUN 55 H Creatinine 1.08 H Estimated GFR 52 L BUN/Creatinine Ratio 50.9 H Glucose 136 H Calcium 8.4 Phosphorus 3.4 Magnesium 2.6 H Prealbumin Triglycerides Exam Vital Signs (past 8 hours): - 07/08/23 02:00 07/08/23 02:00 07/08/23 02:30 Temperature Pulse Rate 71 70 Respiratory Rate 25 H 24 Blood Pressure 110/61 Pulse Oximetry 99 99 Oxygen Delivery Method Oxygen Flow Rate 07/08/23 02:30 07/08/23 03:00 07/08/23 03:00 Temperature Pulse Rate 66 Respiratory Rate 24 Blood Pressure 114/67 119/58 L Pulse Oximetry 98 Oxygen Delivery Method Oxygen Flow Rate 07/08/23 03:30 07/08/23 03:30 07/08/23 04:00 Temperature 98.4 F Pulse Rate 64 Respiratory Rate 23 Blood Pressure 118/66 113/65 Pulse Oximetry 98 Oxygen Delivery Method Oxygen Flow Rate 07/08/23 04:00 07/08/23 04:12 07/08/23 04:30 Temperature Pulse Rate 66 66 65 Respiratory Rate 23 24 Blood Pressure 113/65 Pulse Oximetry 98 99 Oxygen Delivery Method Oxygen Flow Rate 07/08/23 04:30 07/08/23 05:00 07/08/23 05:00 Temperature Pulse Rate 64 Respiratory Rate 24 Blood Pressure 119/57 L 122/58 L Pulse Oximetry 99 Oxygen Delivery Method Oxygen Flow Rate 07/08/23 05:00 07/08/23 05:30 07/08/23 05:30 Temperature Pulse Rate 65 Respiratory Rate 24 Blood Pressure 118/61 Pulse Oximetry 99 Oxygen Delivery Method Mechanical Ventilation Oxygen Flow Rate 07/08/23 06:00 07/08/23 06:00 07/08/23 06:30 Temperature Pulse Rate 62 60 Respiratory Rate 24 24 Blood Pressure 120/60 Pulse Oximetry 99 98 Oxygen Delivery Method Oxygen Flow Rate 07/08/23 06:30 07/08/23 07:00 07/08/23 07:00 Temperature Pulse Rate 58 L Respiratory Rate 24 Blood Pressure 123/59 L Pulse Oximetry 99 98 Oxygen Delivery Method Mechanical Ventilation Oxygen Flow Rate 70 07/08/23 07:00 07/08/23 07:30 07/08/23 07:30 Temperature Pulse Rate 59 L Respiratory Rate 24 Blood Pressure 116/67 118/62 Pulse Oximetry 99 Oxygen Delivery Method Oxygen Flow Rate 07/08/23 08:00 07/08/23 08:00 07/08/23 08:30 Temperature Pulse Rate 57 L 55 L Respiratory Rate 24 25 H Blood Pressure 112/64 Pulse Oximetry 99 98 Oxygen Delivery Method Oxygen Flow Rate 07/08/23 08:30 07/08/23 09:00 07/08/23 09:00 Temperature Pulse Rate 62 Respiratory Rate 19 Blood Pressure 114/58 L 118/62 Pulse Oximetry 96 Oxygen Delivery Method Oxygen Flow Rate Fraction of Inspired Oxygen 100 Oxygen Delivery Method Mechanical Ventilation Oxygen Flow Rate 70 Narrative Exam Narrative: Intubated and sedated Assessment & Plan Assessment & Plan narrative: NEURO: # Acute encephalopathy -- Secondary to sepsis, toxic metabolic encephalopathy, and delirium -- Avoid BZD -- Recommend adding abilify 10 mg daily -- Cont weaning down sedation to seek RASS goal -1 to 0 -- Cont frequent reorientation RESP: # Acute hypoxemia respiratory failure -- Secondary to sepsis causing acute lung injury and query component of pulmonary edema. Other ddx include inflammatory. -- On vanc/ceftriaxone -- Blood cx negative to date -- Check resp cx -- Recommend adding a trial of solumedrol 40 mg IV q8hr if cleared by surgical team -- Titrate down FIO2 -- Daily SAT and SBT once FiO2 is less than 60% -- Cont gentle diuresis to seek net negative fluid balance -- HOB elevation -- Aspiration precaution -- Goal SpO2 > 88% CVS: # A fib w/ RVR -- Rate controlled w/ diltiazem gtt -- Goal HR < 110 -- CHADVASC score 4 -> need systemic AC when cleared by surgery -- High lytes goal -- On cardizem 30 mg q6hr # HTN -- Goal SBP < 140 : # Azotemia -- BUN continues to rise -- Secondary to hyperalimentation -- Trend BMP -- Monitor UOP ID: # Severe sepsis -- Cx negative to date -- On vanc/ceftriaxone -- On flagyl -- If cx remains negative then recommend stopping vancomcyin due to risk of nephrotoxicity -- Follow up cx data GI: # SBO -- s/p SARITA -- On TPN -- Management per primary surgical team ENDO: -- Goal BS < 180 -- On ISS 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 Time Spent With Patient Time with patient: 30 to 49 minutes with 50% spent counseling/coordinating care
[2023-07-08] MEDS: propofoL 1,000 MG/100 ML VIAL 8.97 MG IV (10:02)
[2023-07-08] MEDS: BISACODYL 10 MG SUPP PR (10:08)
[2023-07-08] MEDS: PANTOPRAZOLE 40 MG VIAL IV (10:08)
--- NOTE | 2023-07-08 15:24 | PC.NURSE ---
Addendum entered by Syl Powers R.N. 07/08/23 19:01: 1902 Titrated Prop gtt from 25mcg/kg/min to 20mcg/kg/min due to decreased BP, will continue to monitor. Addendum entered by Syl Powers R.N. 07/08/23 18:48: 1849 Titrated Dilt. gtt to 5mg/hr due to pt BP 95/54 MAP 70, Will continue to monitor Addendum entered by Syl Powers R.N. 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 Annie stated that they were not sure if pt had it on at the time pt came to the hospital, but have been unable to locate it at the house. Will continue monitor Original Note: Day shift note: Pt remains intubated and sedated, opens eyes to verbal stimuli, although eye contact is not sustained, PERRLA 2mm and sluggish, RASS between -2 and +1, with pt reaching for ETT, not able to follow commands, VSS HR 46-71 BP 112/64, afebrile, 2+ L ankle edema with some purpura/mottling, 1+ left leg edema, +1 R ankle edema, afib CVR Dilt gtt infusing as ordered, #8 ETT/21 at teeth, vent AC FiO2 70% TV 380 RR 24 PEEP 5, lungs clear with occasional rhonchi, suctioned for small amts white/creamy secretions with some blood tinged sputum, O2 sats >92%, abd soft with BS, no BM even with suppository, OGT 55cm at lip to LIS for bilious drainage, campos draining clear yellow urine, skin warm and dry, midline abd incision dsg intact and marked for old drainage, PICC ED patent, flushes well but does not draw back blood, lab to draw labs, cedric soft wrist restraints in place as ordered, conversations had with pt son Yoel regarding plan of care, son to arrive 07/09/23 around 1400, family to meet with providers at that time to discuss goals of care. Will continue to monitor
[2023-07-08] MEDS: cefTRIAXone 2,000 MG in SODIUM CHLORIDE 0.9% 100 ML 200 MG IV (16:00)
[2023-07-08] MEDS: ENOXAPARIN 60 MG/0.6 ML SYRINGE 55 MG SUBCUT (17:24)
[2023-07-08] MEDS: AA 5 %/CALCIUM/LYTES/DEXT 20 % 1,500 ML with MULTIVITAMIN 10 ML, TRACE ELEMENTS 1 ML, T... 64.458 ML IV (17:47)
[2023-07-08] MEDS: propofoL 1,000 MG/100 ML VIAL 7.176 MG IV ×2 (18:54→23:51)
--- NOTE | 2023-07-08 20:17 | PM.ICURNDS ---
- Date Patient Seen: 07/08/23 Time Patient Seen: 20:18 :: This patient was seen via real time interactive two-way audiovisual telecommunication. Note: No acute issues. Remains intubated and sedated. Cont weaning down sedation to seek RASS goal -1 to 0. D/w bedside RN.
--- NOTE | 2023-07-08 20:31 | PM.PNPO.1 ---
Subjective Subjective Date Patient Seen: 07/08/23 Time Patient Seen: 20:31 Interval history: POD4 exlap SARITA for SBO with resp failure -Remains sedated for mech ventilation. -No major events unable to wean vent requirements Exam Vital Signs (past 8 hours): - 07/08/23 13:00 07/08/23 13:00 07/08/23 13:00 Temperature Pulse Rate 67 Respiratory Rate 19 Blood Pressure 109/55 L Pulse Oximetry 95 Oxygen Delivery Method Mechanical Ventilation Oxygen Flow Rate 07/08/23 13:30 07/08/23 13:30 07/08/23 14:00 Temperature Pulse Rate 66 69 Respiratory Rate 17 17 Blood Pressure 113/58 L Pulse Oximetry 96 95 Oxygen Delivery Method Oxygen Flow Rate 07/08/23 14:00 07/08/23 14:30 07/08/23 14:30 Temperature Pulse Rate 64 Respiratory Rate 41 H Blood Pressure 106/63 104/61 Pulse Oximetry 96 Oxygen Delivery Method Oxygen Flow Rate 07/08/23 15:00 07/08/23 15:00 07/08/23 15:30 Temperature Pulse Rate 63 69 Respiratory Rate 20 15 Blood Pressure 112/64 Pulse Oximetry 95 95 Oxygen Delivery Method Oxygen Flow Rate 07/08/23 15:30 07/08/23 16:00 07/08/23 16:00 Temperature Pulse Rate 74 Respiratory Rate 15 Blood Pressure 119/55 L 121/64 Pulse Oximetry 96 Oxygen Delivery Method Oxygen Flow Rate 07/08/23 16:03 07/08/23 16:30 07/08/23 16:30 Temperature Pulse Rate 88 70 Respiratory Rate 15 Blood Pressure 121/64 110/60 Pulse Oximetry 97 Oxygen Delivery Method Oxygen Flow Rate 07/08/23 17:00 07/08/23 17:00 07/08/23 17:00 Temperature 99.7 F H Pulse Rate 75 Respiratory Rate 17 Blood Pressure Pulse Oximetry 97 Oxygen Delivery Method Mechanical Ventilation Oxygen Flow Rate 07/08/23 17:04 07/08/23 17:04 07/08/23 17:30 Temperature Pulse Rate 71 68 Respiratory Rate 15 17 Blood Pressure 105/57 L Pulse Oximetry 97 99 Oxygen Delivery Method Oxygen Flow Rate 07/08/23 18:00 07/08/23 18:00 07/08/23 18:30 Temperature Pulse Rate 76 68 Respiratory Rate 20 19 Blood Pressure 95/54 L Pulse Oximetry 99 100 Oxygen Delivery Method Oxygen Flow Rate 07/08/23 19:00 07/08/23 19:00 07/08/23 19:25 Temperature Pulse Rate 66 Respiratory Rate 17 Blood Pressure 101/56 L Pulse Oximetry 100 100 Oxygen Delivery Method Mechanical Ventilation Oxygen Flow Rate 70 07/08/23 20:00 07/08/23 20:00 Temperature Pulse Rate 74 Respiratory Rate 16 Blood Pressure 102/62 Pulse Oximetry 100 Oxygen Delivery Method Oxygen Flow Rate Fraction of Inspired Oxygen 100 Oxygen Delivery Method Mechanical Ventilation Oxygen Flow Rate 70 Narrative Exam Narrative: Abdomen-Soft, minimal distention Objective Labs 07/08/23 06:05 07/08/23 06:05 Labs: Laboratory Results - last 24 hr 07/07/23 07/08/23 21:40 06:05 WBC 12.4 H RBC 3.63 L Hgb 11.3 L Hct 34.0 L MCV 93.7 MCH 31.1 MCHC 33.2 RDW 13.4 Plt Count 146 L Neut % (Auto) Not Reportable Lymph % (Auto) Not Reportable [place] % (Auto) Not Reportable Eos % (Auto) Not Reportable Baso % (Auto) Not Reportable Lymph # (Auto) Not Reportable [place] # (Auto) Not Reportable Baso # (Auto) Not Reportable Total Counted 100 Seg Neutrophils % 77.0 H Band Neutrophils % 7.0 Lymphocytes % (Manual) 9.0 L Monocytes % (Manual) 6.0 Eosinophils % (Manual) 1.0 L Neutrophils # (Manual) 12877 H RBC Morphology See below Anisocytosis 1+ H Sodium 131 L Potassium 3.6 3.8 Chloride 98 Carbon Dioxide 28 BUN 55 H Creatinine 1.08 H Estimated GFR 52 L BUN/Creatinine Ratio 50.9 H Glucose 136 H Calcium 8.4 Phosphorus 3.4 Magnesium 1.9 2.6 H PFSH Medical History Symptomatic anemia Port-A-Cath in place Scoliosis Arthritis Pulmonary nodule Fallopian tube carcinoma Essential hypertension Surgical History Status post hip hemiarthroplasty (04/01/22) History of lung biopsy (2016) S/P total abdominal hysterectomy and bilateral salpingo-oophorectomy (~2013) History of partial pancreatectomy Status post exploratory laparotomy Status post splenectomy (2015) Social History household members: spouse Smoking Status: Former smoker alcohol intake: former Assessment & Plan Post-op Postoperative Procedures: Procedures Operation Date: 07/04/23 10:00 Actual Procedure Side Surgeon p Exploratory Laparotomy GEN Zayra Granados MD Postoperative status narrative: POD 4 sp exlap with SARITA for SBO with respiratory failure. -Continue Vent wean FIO2 as able -Continue NGT and OK for meds but do not recommend feeding via tube at this point. -Continue TPN -Needs discussion with family re goals of care, remains intubated with resp failure not showing much improvement -OK for Solumedrol and systemic anticoagulation at this time if beneficial
[2023-07-09] VITALS (62 sets, daily range): BP systolic 105–147; BP diastolic 57–82; PULSE 68–115; RESP 11–30; TEMP 37.1–37.6; O2SAT 9–100
[2023-07-09] MEDS: fentaNYL 1,000 MCG in DEXTROSE 5% IN WATER 230 ML 10.465 MCG IV (00:12)
[2023-07-09] MEDS: metroNIDAZOLE 500 MG/100 ML PIGGYBACK 100 MG IV ×3 (02:23→18:28)
[2023-07-09] MEDS: dilTIAZem 30 MG TABLET PO ×4 (04:00→21:46)
[2023-07-09] MEDS: ENOXAPARIN 60 MG/0.6 ML SYRINGE 55 MG SUBCUT ×2 (04:55→18:28)
[2023-07-09] MEDS: dexmedeTOMIDine in 0.9 % NaCL 400 MCG/100 ML PLAST..BAG 12.856 MCG IV (05:54)
[2023-07-09] MEDS: INSULIN LISPRO 100 UNIT/ML 3ML VIAL SUBCUT ×2 (06:06→12:08)
[2023-07-09] MEDS: CHLORHEXIDINE GLUCONATE 15 ML CUP PO ×4 (06:12→23:51)
--- NOTE | 2023-07-09 06:46 | PC.NURSE ---
Addendum entered by Jennifer Og R.N. 07/09/23 07:41: As preceptor, I agree with Tyrell RNs assessments, interventions, documentations, and evaluations. In addition, propofol gtt currently at 25mcg/kg/min and Fentanyl gtt at 0.7mcg/kg/min. TPN as ordered. Oral care as ordered, turning Q2h, HOB at 45 degrees. No other changes to vent except as mentioned. Original Note: Diltiazem titrated from 5 to 2.5 @1999. PO Diltiazem administered @2200, and IV admin paused, pt tolerated well. O2 SAT persisted at 100%, so FiO2 titrated to 50% @0100. Precedex titrated from 1.0 to 0.9 @0245. O2 SAT persisted at 100%, so FiO2 titrated to 40% @0400. Precedex titrated to 0.8 @0430. Urine output stable at approx 100mL/hr. No significant change is pt status this shift.
--- NOTE | 2023-07-09 07:42 | P.PN_ITS ---
Subjective Subjective Date Patient Seen: 07/09/23 Time Patient Seen: 07:42 Interval history: This morning and overnight have been able to wean FiO2 down to 40%. Still requiring relatively modestly high doses of sedation. Making good urine. No bowel movements, scant output from orogastric tube Off diltiazem intravenous relying on oral diltiazem alone. Not receiving oral metoprolol at this time either. Not requiring parental metoprolol either. Continues on TPN Blood sugar elevated this morning, perhaps secondary to the initiation of the corticosteroids Exam Vital Signs (past 8 hours): - 07/09/23 00:00 07/09/23 00:00 07/09/23 00:30 Temperature 99.6 F Pulse Rate 84 81 Respiratory Rate 17 24 Blood Pressure 105/59 L Pulse Oximetry 100 100 Oxygen Delivery Method Oxygen Flow Rate 07/09/23 00:30 07/09/23 01:00 07/09/23 01:00 Temperature Pulse Rate 76 Respiratory Rate 16 Blood Pressure 107/59 L 110/62 Pulse Oximetry 100 Oxygen Delivery Method Oxygen Flow Rate 07/09/23 01:00 07/09/23 01:30 07/09/23 01:30 Temperature Pulse Rate 85 Respiratory Rate 13 Blood Pressure 106/57 L Pulse Oximetry 98 Oxygen Delivery Method Mechanical Ventilation Oxygen Flow Rate 07/09/23 02:00 07/09/23 02:00 07/09/23 02:30 Temperature Pulse Rate 84 85 Respiratory Rate 12 13 Blood Pressure 106/63 Pulse Oximetry 98 99 Oxygen Delivery Method Oxygen Flow Rate 07/09/23 02:30 07/09/23 03:00 07/09/23 03:00 Temperature Pulse Rate 88 Respiratory Rate 17 Blood Pressure 111/66 112/60 Pulse Oximetry 100 Oxygen Delivery Method Oxygen Flow Rate 07/09/23 03:30 07/09/23 03:30 07/09/23 04:00 Temperature Pulse Rate 86 93 H Respiratory Rate 15 Blood Pressure 118/71 123/66 Pulse Oximetry 100 Oxygen Delivery Method Oxygen Flow Rate 40 07/09/23 04:00 07/09/23 04:00 07/09/23 04:30 Temperature 99.4 F Pulse Rate 91 H 81 Respiratory Rate 17 16 Blood Pressure 123/66 Pulse Oximetry 98 98 Oxygen Delivery Method Oxygen Flow Rate 40 07/09/23 04:30 07/09/23 05:00 07/09/23 05:00 Temperature Pulse Rate Respiratory Rate Blood Pressure 113/64 114/59 L Pulse Oximetry Oxygen Delivery Method Mechanical Ventilation Oxygen Flow Rate 07/09/23 05:00 07/09/23 05:30 07/09/23 05:30 Temperature Pulse Rate 87 81 Respiratory Rate 15 16 Blood Pressure 116/61 Pulse Oximetry 98 98 Oxygen Delivery Method Oxygen Flow Rate 07/09/23 06:00 07/09/23 06:00 07/09/23 06:30 Temperature Pulse Rate 86 87 Respiratory Rate 16 17 Blood Pressure 109/61 Pulse Oximetry 98 98 Oxygen Delivery Method Oxygen Flow Rate 07/09/23 06:30 Temperature Pulse Rate Respiratory Rate Blood Pressure 114/63 Pulse Oximetry Oxygen Delivery Method Oxygen Flow Rate 40 Fraction of Inspired Oxygen 100 Oxygen Delivery Method Mechanical Ventilation Oxygen Flow Rate 40 Narrative Exam Narrative: Intubated sedated Lungs-good breath sounds with ventilation Heart-irregular Abdomen-positive bowel tones, more normal than yesterday Extremities-no edema to speak of in the feet or pretibial areas Objective Labs 07/08/23 06:05 07/08/23 06:05 [facility] Medical History Symptomatic anemia Port-A-Cath in place Scoliosis Arthritis Pulmonary nodule Fallopian tube carcinoma Essential hypertension Surgical History Status post hip hemiarthroplasty (04/01/22) History of lung biopsy (2016) S/P total abdominal hysterectomy and bilateral salpingo-oophorectomy (~2013) History of partial pancreatectomy Status post exploratory laparotomy Status post splenectomy (2015) Social History household members: spouse Smoking Status: Former smoker alcohol intake: former Assessment & Plan Assessment & Plan narrative: 1. Postop day 5, status post exploratory laparotomy/lysis of adhesions-no evidence of surgical complication. Really no GI function but were not really challenging her GI tract either. No reason to make any changes at this time. 2. Respiratory-has improved at least as measured by reduction in oxygen requirement. Still requiring lots of sedation. Chest x-ray pending this morning. No reason to make any changes. Corticosteroid therapy initiated yesterday as per tele content development specialist, perhaps that has led to ability to wean her oxygen, although not at all clear. Chest x-ray yesterday did seem to demonstrate some clearing of the pulmonary edema at least. 3. Cardiac-continues in atrial fibrillation but now controlled with oral meds. Continue with diuresis. As noted on imaging yesterday pulmonary edema seems to be clearing. Finally also seeing some improvement in respiratory status 4. Fluids/electrolytes/nutrition-plan to recheck labs later this morning. Continue with Lasix. 5. VTE prophylaxis-switched over to full-dose Lovenox mg per kilos q.12 given her atrial fibrillation. Patient finally showing some limited evidence of improvement over the last 24 hours with decreasing FiO2 etcetera. However still requiring significant sedation. Other members of family are arriving today including patient's son who is a physician. Anticipate discussion about goals of care over the next 24- 48 hours as well as perhaps slightly longer term.
[2023-07-09] MEDS: VANCOMYCIN 750 MG/150 ML PIGGYBACK 150 MG IV (08:14)
[2023-07-09] MEDS: PANTOPRAZOLE 40 MG VIAL IV (08:15)
[2023-07-09] MEDS: VANCOMYCIN TROUGH 1 REQUEST MISC (08:20)
--- NOTE | 2023-07-09 08:25 | DI.RAD.S_ITS ---
PROCEDURE: XR CHEST 1V INDICATIONS: pneumonia/resp failure TECHNIQUE: One view of the chest was acquired. COMPARISON: [facility], , XR CHEST 1V, 07/08/2023, 8:13. FINDINGS: Surgical changes and devices: Port-A-Cath, NG tube, and ET tube are unchanged. Lungs and pleura: Consolidative radiopacities are redemonstrated at the right lung base and at the left lung base posterior to the cardiac shadow. There is improved aeration of the left mid lung when compared with the study dated July 08, 2023. There is likely a small left effusion, as before. No new airspace opacities. Diffuse reticular radiopacities are visualized bilaterally suggesting pulmonary fibrosis or mild edema. Mediastinum: Mediastinal contours appear normal. Heart size is normal. Bones and chest wall: No suspicious bony lesions. Overlying soft tissues appear unremarkable. IMPRESSION: 1. Persistent bibasilar pulmonary radiopacities. 2. Improved aeration of the left mid lung. 3. Probable left effusion as before. Dictated by: Kyleigh Otero M.D. on 07/09/2023 at 9:07 Approved by: Kyleigh Otero M.D. on 07/09/2023 at 9:09
[2023-07-09] MEDS: propofoL 1,000 MG/100 ML VIAL 8.97 MG IV (08:41)
[2023-07-09 08:44] LABS: Blood Urea Nitrogen 75 mg/dL (7-17); Calcium 8.2 mg/dL (8.4-10.2); Carbon Dioxide 25 mmol/L (22-32); Chloride 100 mmol/L (98-107); Estimated Glomerular Filt Rate 45 mL/min (>60); Glucose 176 mg/dL (80-110); HEMOLYSIS 21 (0-50); Magnesium 2.2 mg/dL (1.6-2.3); Potassium 4.1 mmol/L (3.4-5.1); Sodium 133 mmol/L (137-145)
[2023-07-09 08:48] LABS: Vancomycin Trough 10.3 ug/mL (10-20)
[2023-07-09] MEDS: VANCOMYCIN PEAK 1 REQUEST MISC (10:09)
[2023-07-09 10:15] LABS: Vancomycin Peak 32.6 ug/mL (20-40)
[2023-07-09] MEDS: ONDANSETRON 4 MG/2 ML INJ IV (12:18)
[2023-07-09] MEDS: FUROSEMIDE 20 MG/2 ML VIAL IV ×2 (12:18→23:52)
[2023-07-09] MEDS: METOPROLOL IR 25 MG TABLET PO ×3 (12:19→23:55)
--- NOTE | 2023-07-09 12:34 | CM.DPNOTE ---
DCP Note CM team following patient's clinical course closely. According to review of Dr Gudino's note- patient making some clinical improvement, limited code, still requiring significant sedation. Patient's son, who is a physician, arriving from out of town today. Goals of care conversations expected over the next 24-48 hrs between provider and family. CM team will remain available for any supportive measures and/or coordination needed. JW
--- NOTE | 2023-07-09 13:22 | P.TELICUPN_ITS ---
Subjective Subjective IF CAMERA ACTIVATED, patient seen via real-time interactive audiovisual communication: Camera activated Consent obtained for tele-bottle machine operator care: Yes Patient Location: ICU Provider location (State): [place] Other participants/roles: RN Interval history: pt intubated and sedated. she was double triggering the vent this AM. Current Medications Current Medications Medications: Home Medications acetaminophen 325 mg capsule (Tylenol) 650 mg (2 x 325 mg) PO QID PRN pain #60 caps 05/22/21 [Rx Confirmed 07/02/23] prochlorperazine maleate 10 mg tablet (Compazine) 10 mg PO Q6H PRN Nausea 05/26/21 [History Confirmed 07/02/23] furosemide 20 mg tablet 40 mg (2 x 20 mg) PO DAILY #180 tabs 04/12/23 [Rx Confirmed 07/02/23] bevacizumab 25 mg/mL intravenous solution (Avastin) 25 mg IV QMONTH 05/14/23 [History Confirmed 07/02/23] carvedilol phosphate 40 mg capsule,[id number] multiphase See Rx Instructions PO DAILY 05/14/23 [History Confirmed 07/02/23] gabapentin 100 mg capsule 200 mg PO DAILY 05/14/23 [History Confirmed 07/02/23] mirabegron 25 mg tablet,extended release 24 hr (Myrbetriq) 25 mg PO DAILY 05/14/23 [History Confirmed 07/02/23] telmisartan 40 mg tablet 40 mg PO BID 05/14/23 [History Confirmed 07/02/23] felodipine 2.5 mg tablet,extended release 24 hr 2.5 mg PO DAILY #90 tabs 06/28/23 [Rx Confirmed 07/02/23] Visit Medications (administered) Generic Name Dose Route Start Last Admin Trade Name Freq PRN Reason Stop Dose Admin Chlorhexidine Gluconate 15 ml 07/06/23 12:00 07/09/23 12:18 Chlorhexidine Gluconate 15 Ml Cup PO 15 ml Q6HR KASHMIR Administration Diltiazem HCl 30 mg 07/07/23 16:00 07/09/23 10:17 Diltiazem 30 Mg Tablet PO 30 mg Q6H KASHMIR Administration Diphenhydramine HCl 25 mg 07/02/23 08:23 07/02/23 08:34 Diphenhydramine 50 Mg/Ml Vial IV 25 mg Q4HR PRN Administration Itching Enoxaparin Sodium 55 mg 07/08/23 17:00 07/09/23 04:55 Enoxaparin 60 Mg/0.6 Ml Syringe 1 mg/kg (55 mg) 55 mg SUBCUT Administration Q12H KASHMIR Furosemide 20 mg 07/09/23 12:00 07/09/23 12:18 Furosemide 20 Mg/2 Ml Vial IV 20 mg Q12HR AKSHMIR Administration Hydromorphone HCl 2 mg 07/02/23 09:10 07/04/23 11:17 Hydromorphone 2 Mg Inj IV 2 mg Q2H PRN Administration Pain, Severe (7-10) DILTIAZEM 125 mg in 125 mls @ 5 mls/hr 07/04/23 10:15 07/08/23 22:31 Diltiazem 125 Mg/125 Ml-D5w IV 0 mg/hr TITRATE KASHMIR 0 mls/hr Titration Protocol 5 MG/HR Fat Emulsion Intravenous 50 gm in 250 mls @ 25 mls/hr 07/05/23 18:00 07/08/23 04:13 Clinolipid 20% IV Infused [id number] KASHMIR Infusion Ceftriaxone Sodium 2,000 mg/ 100 mls @ 200 mls/hr 07/04/23 16:00 07/08/23 16:30 Sodium Chloride IV Infused Q24H KASHMIR Infusion Phenylephrine HCl 20,000 mcg/ 250 mls @ 75 mls/hr 07/04/23 15:58 07/05/23 04:30 Dextrose IV 0 mcg/min TITRATE KASHMIR 0 mls/hr Titration Protocol 100 MCG/MIN dexmedeTOMIDine in 0.9 % NaCL 400 mcg in 100 mls @ 3.214 mls/hr 07/05/23 18:45 07/09/23 05:54 Precedex IV 0.05 mcg/kg/hr TITRATE KASHMIR 0.8 mls/hr Administration Protocol 0.2 MCG/KG/HR Propofol 1,000 mg in 100 mls @ 1.794 mls/hr 07/06/23 09:30 07/09/23 09:33 Propofol IV 15 mcg/kg/min TITRATE KASHMIR 5.382 mls/hr Titration Protocol 5 MCG/KG/MIN Fentanyl 1,000 mcg/ Dextrose 250 mls @ 10.465 mls/hr 07/06/23 09:30 07/09/23 08:49 IV 0.5 mcg/kg/hr TITRATE KASHMIR 7.475 mls/hr Titration Protocol 0.7 MCG/KG/HR Vancomycin HCl 750 mg in 150 mls @ 150 mls/hr 07/07/23 08:00 07/09/23 08:14 Vancomycin IV 150 mls/hr Q24H KASHMIR Administration Metronidazole 500 mg in 100 mls @ 100 mls/hr 07/07/23 10:45 07/09/23 10:40 Flagyl IV 100 mls/hr Q8H KASHMIR Administration Multivitamins 10 ml/ Chromium/ 1,547 mls @ 64.458 mls/hr 07/08/23 18:00 07/08/23 17:47 Copper/Manganese/Seleni/Zn 1 IV 07/09/23 17:59 64.458 mls/hr ml/ Thiamine HCl 100 mg/ 1800 KASHMIR Administration Potassium Chloride 40 meq/ Sodium Chloride 60 meq/ Amino Acids/Electrolytes Insulin Human Lispro 0 unit 07/04/23 18:00 07/09/23 12:08 Insulin Lispro 100 Unit/Ml 3ml Vial SUBCUT 1 unit Q6H KASHMIR Administration Protocol Methylprednisolone 40 mg 07/09/23 00:00 07/09/23 12:18 Methylprednisolone 40 Mg/Ml Vial IV 40 mg Q12HR KASHMIR Administration Metoprolol Tartrate 25 mg 07/07/23 18:00 07/09/23 12:19 Metoprolol Ir 25 Mg Tablet PO 25 mg Q6HR KASHMIR Administration Ondansetron HCl 4 mg 07/02/23 06:00 07/09/23 12:18 Ondansetron 4 Mg/2 Ml Inj IV 4 mg Q6HR KASHMIR Administration Pantoprazole Sodium 40 mg 07/07/23 09:00 07/09/23 08:15 Pantoprazole 40 Mg Vial IV 40 mg DAILY KASHMIR Administration Prochlorperazine 10 mg 07/02/23 19:10 07/04/23 11:16 Prochlorperazine 10 Mg/2 Ml Vial IV 10 mg Q6HR PRN Administration Nausea Objective Ventilator Parameters: Ventilator Settings FiO2 40 CPAP Pressure Amount 5 RT Vent Frequency 20 Ventilator Tidal Volume 380 Exhaled Vt/kg IBW 52 Positive End Expiratory 5 Pressure Ventilator Pressure Support 8 Inspiratory Phase Time 0.95 I:E Ratio 1:2.1 Patient Position HOB >= 30 degrees Labs 07/08/23 06:05 07/09/23 07:30 Labs: Laboratory Results - last 24 hr 07/09/23 07/09/23 07:30 09:38 Sodium 133 L Potassium 4.1 Chloride 100 Carbon Dioxide 25 BUN 75 H Creatinine 1.21 H Estimated GFR 45 L BUN/Creatinine Ratio 62.0 H Glucose 176 H Calcium 8.2 L Magnesium 2.2 Vancomycin Peak 32.6 Vancomycin Trough 10.3 Exam Vital Signs (past 8 hours): - 07/09/23 05:30 07/09/23 05:30 07/09/23 06:00 Temperature Pulse Rate 81 Respiratory Rate 16 Blood Pressure 116/61 109/61 Pulse Oximetry 98 Oxygen Delivery Method Oxygen Flow Rate 07/09/23 06:00 07/09/23 06:30 07/09/23 06:30 Temperature Pulse Rate 86 87 Respiratory Rate 16 17 Blood Pressure 114/63 Pulse Oximetry 98 98 Oxygen Delivery Method Oxygen Flow Rate 40 07/09/23 07:00 07/09/23 07:00 07/09/23 07:00 Temperature Pulse Rate 85 Respiratory Rate 17 Blood Pressure 108/63 Pulse Oximetry 98 100 Oxygen Delivery Method Mechanical Ventilation Oxygen Flow Rate 40 07/09/23 07:30 07/09/23 07:30 07/09/23 08:00 Temperature Pulse Rate 93 H 92 H Respiratory Rate 18 17 Blood Pressure 107/68 Pulse Oximetry 98 98 Oxygen Delivery Method Oxygen Flow Rate 07/09/23 08:00 07/09/23 08:30 07/09/23 08:30 Temperature Pulse Rate 93 H Respiratory Rate 17 Blood Pressure 116/62 122/71 Pulse Oximetry 98 Oxygen Delivery Method Oxygen Flow Rate 07/09/23 09:00 07/09/23 09:00 07/09/23 09:19 Temperature Pulse Rate 91 H 100 H Respiratory Rate 16 16 Blood Pressure Pulse Oximetry 99 99 Oxygen Delivery Method Mechanical Ventilation Oxygen Flow Rate 07/09/23 09:19 07/09/23 09:30 07/09/23 09:30 Temperature Pulse Rate 93 H Respiratory Rate 16 Blood Pressure 110/64 116/67 Pulse Oximetry 99 Oxygen Delivery Method Oxygen Flow Rate 07/09/23 10:00 07/09/23 10:00 07/09/23 10:17 Temperature Pulse Rate 95 H 98 H Respiratory Rate 14 Blood Pressure 124/61 124/61 Pulse Oximetry 98 Oxygen Delivery Method Oxygen Flow Rate 07/09/23 10:30 07/09/23 10:30 07/09/23 11:00 Temperature Pulse Rate 95 H 98 H Respiratory Rate 14 20 Blood Pressure 119/70 Pulse Oximetry 98 97 Oxygen Delivery Method Oxygen Flow Rate 07/09/23 11:00 07/09/23 11:30 07/09/23 11:30 Temperature 98.7 F Pulse Rate 98 H Respiratory Rate 15 Blood Pressure 133/67 114/67 Pulse Oximetry 98 Oxygen Delivery Method Oxygen Flow Rate 07/09/23 12:00 07/09/23 12:00 Temperature Pulse Rate 99 H Respiratory Rate 15 Blood Pressure 111/61 Pulse Oximetry 97 Oxygen Delivery Method Oxygen Flow Rate Fraction of Inspired Oxygen 100 Oxygen Delivery Method Mechanical Ventilation Oxygen Flow Rate 40 Narrative Exam Narrative: intubaed/sedated Chest Other: symmetric chest rise she is not synchronous Assessment & Plan Assessment & Plan narrative: NEURO: # Acute encephalopathy -- Secondary to sepsis, toxic metabolic encephalopathy, and delirium -- Avoid BZD -- Recommend adding abilify 10 mg daily -- Cont precedex -- Cont frequent reorientation RESP: # Acute hypoxemia respiratory failure -- Secondary to sepsis causing acute lung injury and query component of pulmonary edema. Other ddx include inflammatory. -- On vanc/ceftriaxone -- Blood cx negative to date -- Check resp cx -- Recommend adding a trial of solumedrol 40 mg IV q8hr if cleared by surgical team -- Titrate down FIO2 -- Daily SAT and SBT once FiO2 is less than 60% -- Cont gentle diuresis to seek net negative fluid balance -- HOB elevation -- Aspiration precaution -- Goal SpO2 > 88% -- would increase I time for vent synchrony, or place on PSV CVS: # A fib w/ RVR -- Rate controlled w/ diltiazem gtt -- Goal HR < 110 -- CHADVASC score 4 -> need systemic AC when cleared by surgery -- High lytes goal -- On cardizem 30 mg q6hr # HTN -- Goal SBP < 140 : # Azotemia -- BUN continues to rise -- Secondary to hyperalimentation -- Trend BMP -- Monitor UOP ID: # Severe sepsis -- Cx negative to date -- On vanc/ceftriaxone -- On flagyl -- If cx remains negative then recommend stopping vancomcyin due to risk of nephrotoxicity -- Follow up cx data GI: # SBO -- s/p SARITA -- On TPN -- Management per primary surgical team ENDO: -- Goal BS < 180 -- On ISS 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 family to come to bedside to discuss GOC given her prognosis. CCT 35 min Time Spent With Patient Time with patient: 30 to 49 minutes with 50% spent counseling/coordinating care
[2023-07-09] MEDS: cefTRIAXone 2,000 MG in SODIUM CHLORIDE 0.9% 100 ML 200 MG IV (16:01)
[2023-07-09] MEDS: dexmedeTOMIDine in 0.9 % NaCL 400 MCG/100 ML PLAST..BAG IV (17:31)
[2023-07-09] MEDS: AA 5 %/CALCIUM/LYTES/DEXT 20 % 1,500 ML with MULTIVITAMIN 10 ML, TRACE ELEMENTS 1 ML, T... 64.042 ML IV (18:19)
[2023-07-09] MEDS: FAT EMULSIONS 50 GM/250 ML EMULSION IV (18:22)
--- NOTE | 2023-07-09 19:04 | PC.NURSE ---
Pt has maintained on precidex 0.8mcg, however throughout the previous night charted as 0.05mcg/kg. I feel this was a transposed error and not a change in dose.
--- NOTE | 2023-07-09 20:08 | P.ICUMDRN_ITS ---
- Date Patient Seen: 07/09/23 :: This patient was seen via real time interactive two-way audiovisual telecommunic ation. Note: More awake today on propofol and fentanyl gtt. FiOw down to 40% and tolerating PS trial. Patient refused to be extubate today and will plan for extubation tomorrow with family at bedside. D/w bedside RN.
[2023-07-10] VITALS (59 sets, daily range): BP systolic 104–203; BP diastolic 61–126; PULSE 104–129; RESP 15–33; TEMP 36.6–37.6; O2SAT 87–98
[2023-07-10] MEDS: propofoL 1,000 MG/100 ML VIAL 7.176 MG IV (00:44)
[2023-07-10] MEDS: dexmedeTOMIDine in 0.9 % NaCL 400 MCG/100 ML PLAST..BAG 12.856 MCG IV ×2 (01:00→08:08)
[2023-07-10] MEDS: metroNIDAZOLE 500 MG/100 ML PIGGYBACK 100 MG IV ×3 (02:08→17:58)
[2023-07-10] MEDS: dilTIAZem 30 MG TABLET PO ×4 (03:24→22:35)
[2023-07-10] MEDS: ENOXAPARIN 60 MG/0.6 ML SYRINGE 55 MG SUBCUT ×2 (04:47→16:29)
[2023-07-10] MEDS: METOPROLOL IR 25 MG TABLET PO ×2 (05:15→09:03)
[2023-07-10] MEDS: INSULIN LISPRO 100 UNIT/ML 3ML VIAL SUBCUT ×3 (05:34→17:55)
[2023-07-10] MEDS: CHLORHEXIDINE GLUCONATE 15 ML CUP PO (06:28)
[2023-07-10 06:34] LABS: Hematocrit 35.6 % (36-46); Hemoglobin 11.8 g/dL (12.0-16.0); Mean Corpuscular HGB Conc 33.2 % (30-36); Mean Corpuscular Volume 93.4 fL (80-100); Platelet Count 256 X10^3/uL (150-400); Red Blood Cell Count 3.82 X10^6/uL (4.0-5.2); Red Cell Distribution Width 13.4 % (11.6-14.8); White Blood Cell Count 16.9 X10^3/uL (4.5-11.0)
[2023-07-10 06:39] LABS: Add Manual Diff / Slide Review YES
[2023-07-10 06:52] LABS: Neutrophils Absolute Manual 16055 /uL (3000-5900); Phosphorous 5.5 mg/dL (2.8-4.1); Total Cells Counted 100; Triglycerides 43 mg/dL (35-150)
[2023-07-10 06:53] LABS: BUN Creatinine Ratio 67.7 (6-22); Blood Urea Nitrogen 86 mg/dL (7-17); Calcium 8.3 mg/dL (8.4-10.2); Carbon Dioxide 23 mmol/L (22-32); Chloride 102 mmol/L (98-107); Estimated Glomerular Filt Rate 42 mL/min (>60); Glucose 173 mg/dL (80-110); HEMOLYSIS < 15 (0-50); Magnesium 2.1 mg/dL (1.6-2.3); Potassium 3.8 mmol/L (3.4-5.1); Sodium 135 mmol/L (137-145)
[2023-07-10 06:54] LABS: RBC Morphology Normal Morphology
[2023-07-10 07:02] LABS: NT-proBNP (BNP-Adult 18+) 3610 pg/mL (<450)
--- NOTE | 2023-07-10 07:15 | PC.NURSE ---
[address] Sql Developer Note-Patient was comfortably sedated overnight on propofol at 20mcg/kg/min, Precedex at 0.8mcg/kg/hr, and Fentanyl 0.3mcg/kg/hr. Would attempt to write but would get anxious, does follow simple commands. A-fib RVR 100-130 briefly, receiving PO diltiazem and metoprolol via OGT. Tolerated being on PS at 8, 40% FIO2, peep 5, SpO2 >98%.
[2023-07-10] MEDS: VANCOMYCIN 750 MG/150 ML PIGGYBACK 150 MG IV (08:09)
[2023-07-10] MEDS: PANTOPRAZOLE 40 MG VIAL IV (09:02)
--- NOTE | 2023-07-10 09:24 | PM.PN.EICU ---
Subjective Subjective IF CAMERA ACTIVATED, patient seen via real-time interactive audiovisual communication: Camera activated Consent obtained for tele-work and family life consultant care: Yes Patient Location: ICU Provider location (State): [place] Other participants/roles: Bedside RN Interval history: -- More awake and following commands -- On low dose propofol and fentanyl gtt -- On PS trial for almost 24 hours -- Plan for extubation once family arrive at bedside Current Medications Current Medications Medications: Home Medications acetaminophen 325 mg capsule (Tylenol) 650 mg (2 x 325 mg) PO QID PRN pain #60 caps 05/22/21 [Rx Confirmed 07/02/23] prochlorperazine maleate 10 mg tablet (Compazine) 10 mg PO Q6H PRN Nausea 05/26/21 [History Confirmed 07/02/23] furosemide 20 mg tablet 40 mg (2 x 20 mg) PO DAILY #180 tabs 04/12/23 [Rx Confirmed 07/02/23] bevacizumab 25 mg/mL intravenous solution (Avastin) 25 mg IV QMONTH 05/14/23 [History Confirmed 07/02/23] carvedilol phosphate 40 mg capsule,ext.[id number] multiphase See Rx Instructions PO DAILY 05/14/23 [History Confirmed 07/02/23] gabapentin 100 mg capsule 200 mg PO DAILY 05/14/23 [History Confirmed 07/02/23] mirabegron 25 mg tablet,extended release 24 hr (Myrbetriq) 25 mg PO DAILY 05/14/23 [History Confirmed 07/02/23] telmisartan 40 mg tablet 40 mg PO BID 05/14/23 [History Confirmed 07/02/23] felodipine 2.5 mg tablet,extended release 24 hr 2.5 mg PO DAILY #90 tabs 06/28/23 [Rx Confirmed 07/02/23] Visit Medications (administered) Generic Name Dose Route Start Last Admin Trade Name Freq PRN Reason Stop Dose Admin Chlorhexidine Gluconate 15 ml 07/06/23 12:00 07/10/23 06:28 Chlorhexidine Gluconate 15 Ml Cup PO 15 ml Q6HR KASHMIR Administration Diltiazem HCl 30 mg 07/07/23 16:00 07/10/23 09:03 Diltiazem 30 Mg Tablet PO 30 mg Q6H KASHMIR Administration Diphenhydramine HCl 25 mg 07/02/23 08:23 07/02/23 08:34 Diphenhydramine 50 Mg/Ml Vial IV 25 mg Q4HR PRN Administration Itching Enoxaparin Sodium 55 mg 07/08/23 17:00 07/10/23 04:47 Enoxaparin 60 Mg/0.6 Ml Syringe 1 mg/kg (55 mg) 55 mg SUBCUT Administration Q12H KASHMIR Furosemide 20 mg 07/09/23 12:00 07/09/23 23:52 Furosemide 20 Mg/2 Ml Vial IV 20 mg Q12HR KASHMIR Administration Hydromorphone HCl 2 mg 07/02/23 09:10 07/04/23 11:17 Hydromorphone 2 Mg Inj IV 2 mg Q2H PRN Administration Pain, Severe (7-10) DILTIAZEM 125 mg in 125 mls @ 5 mls/hr 07/04/23 10:15 07/08/23 22:31 Diltiazem 125 Mg/125 Ml-D5w IV 0 mg/hr TITRATE KASHMIR 0 mls/hr Titration Protocol 5 MG/HR Fat Emulsion Intravenous 50 gm in 250 mls @ 25 mls/hr 07/05/23 18:00 07/10/23 04:23 Clinolipid 20% IV Infused [id number] KASHMIR Infusion Ceftriaxone Sodium 2,000 mg/ 100 mls @ 200 mls/hr 07/04/23 16:00 07/09/23 19:38 Sodium Chloride IV Infused Q24H KASHMIR Infusion Phenylephrine HCl 20,000 mcg/ 250 mls @ 75 mls/hr 07/04/23 15:58 07/05/23 04:30 Dextrose IV 0 mcg/min TITRATE KASHMIR 0 mls/hr Titration Protocol 100 MCG/MIN dexmedeTOMIDine in 0.9 % NaCL 400 mcg in 100 mls @ 3.214 mls/hr 07/05/23 18:45 07/10/23 08:08 Precedex IV 0.8 mcg/kg/hr TITRATE KASHMIR 12.856 mls/hr Administration Protocol 0.2 MCG/KG/HR Propofol 1,000 mg in 100 mls @ 1.794 mls/hr 07/06/23 09:30 07/10/23 08:17 Propofol IV 10 mcg/kg/min TITRATE KASHMIR 3.588 mls/hr Titration Protocol 5 MCG/KG/MIN Fentanyl 1,000 mcg/ Dextrose 250 mls @ 10.465 mls/hr 07/06/23 09:30 07/09/23 10:49 IV 0.3 mcg/kg/hr TITRATE KASHMIR 4.485 mls/hr Titration Protocol 0.7 MCG/KG/HR Vancomycin HCl 750 mg in 150 mls @ 150 mls/hr 07/07/23 08:00 07/10/23 08:09 Vancomycin IV 150 mls/hr Q24H KASHMIR Administration Metronidazole 500 mg in 100 mls @ 100 mls/hr 07/07/23 10:45 07/10/23 03:08 Flagyl IV Infused Q8H KASHMIR Infusion Multivitamins 10 ml/ Chromium/ 1,537 mls @ 64.042 mls/hr 07/09/23 18:00 07/09/23 18:19 Copper/Manganese/Seleni/Zn 1 IV 07/10/23 17:59 64.042 mls/hr ml/ Thiamine HCl 100 mg/ 1800 KASHMIR Administration Potassium Chloride 20 meq/ Sodium Chloride 60 meq/ Amino Acids/Electrolytes Insulin Human Lispro 0 unit 07/04/23 18:00 07/10/23 05:34 Insulin Lispro 100 Unit/Ml 3ml Vial SUBCUT 1 unit Q6H KASHMIR Administration Protocol Methylprednisolone 40 mg 07/09/23 00:00 07/09/23 23:51 Methylprednisolone 40 Mg/Ml Vial IV 40 mg Q12HR KASHMIR Administration Metoprolol Tartrate 25 mg 07/07/23 18:00 07/10/23 09:03 Metoprolol Ir 25 Mg Tablet PO 25 mg Q6HR KASHMIR Administration Ondansetron HCl 4 mg 07/02/23 06:00 07/10/23 05:14 Ondansetron 4 Mg/2 Ml Inj IV Not Given Q6HR [facility] Pantoprazole Sodium 40 mg 07/07/23 09:00 07/10/23 09:02 Pantoprazole 40 Mg Vial IV 40 mg DAILY KASHMIR Administration Prochlorperazine 10 mg 07/02/23 19:10 07/04/23 11:16 Prochlorperazine 10 Mg/2 Ml Vial IV 10 mg Q6HR PRN Administration Nausea Objective Ventilator Parameters: Ventilator Settings FiO2 35 CPAP Pressure Amount 5 RT Vent Frequency 20 Ventilator Tidal Volume 380 Exhaled Vt/kg IBW 52 Positive End Expiratory 5 Pressure Ventilator Pressure Support 8 Inspiratory Phase Time 0.95 I:E Ratio 1:2.1 Patient Position HOB >= 30 degrees Labs 07/10/23 06:23 07/10/23 06:23 Labs: Laboratory Results - last 24 hr 07/09/23 07/10/23 09:38 06:23 WBC 16.9 H RBC 3.82 L Hgb 11.8 L Hct 35.6 L MCV 93.4 MCH 31.0 MCHC 33.2 RDW 13.4 Plt Count 256 Neut % (Auto) Not Reportable Lymph % (Auto) Not Reportable [place] % (Auto) Not Reportable Eos % (Auto) Not Reportable Baso % (Auto) Not Reportable Lymph # (Auto) Not Reportable [place] # (Auto) Not Reportable Baso # (Auto) Not Reportable Total Counted 100 Seg Neutrophils % 94.0 H Band Neutrophils % 1.0 L Lymphocytes % (Manual) 3.0 L Monocytes % (Manual) 2.0 Neutrophils # (Manual) 31797 H RBC Morphology Normal morphology Sodium 135 L Potassium 3.8 Chloride 102 Carbon Dioxide 23 BUN 86 H Creatinine 1.27 H Estimated GFR 42 L BUN/Creatinine Ratio 67.7 H Glucose 173 H Calcium 8.3 L Phosphorus 5.5 H D Magnesium 2.1 NT-Pro-B Natriuret Pep 3610 H Prealbumin 13.0 L Triglycerides 43 Vancomycin Peak 32.6 Exam Vital Signs (past 8 hours): - 07/10/23 01:30 07/10/23 01:30 07/10/23 02:00 Temperature Pulse Rate 111 H 110 H Respiratory Rate 16 17 Blood Pressure 120/79 Pulse Oximetry 97 97 Oxygen Delivery Method Oxygen Flow Rate 07/10/23 02:00 07/10/23 02:30 07/10/23 02:30 Temperature Pulse Rate 115 H Respiratory Rate 17 Blood Pressure 118/78 121/72 Pulse Oximetry 98 Oxygen Delivery Method Oxygen Flow Rate 07/10/23 03:00 07/10/23 03:00 07/10/23 03:24 Temperature Pulse Rate 126 H 125 H Respiratory Rate 16 Blood Pressure 129/65 129/65 Pulse Oximetry 98 Oxygen Delivery Method Oxygen Flow Rate 07/10/23 03:30 07/10/23 03:30 07/10/23 04:00 Temperature Pulse Rate 118 H 118 H Respiratory Rate 16 17 Blood Pressure 124/80 Pulse Oximetry 97 98 Oxygen Delivery Method Oxygen Flow Rate 07/10/23 04:00 07/10/23 04:30 07/10/23 04:30 Temperature Pulse Rate 108 H Respiratory Rate 16 Blood Pressure 117/65 114/61 Pulse Oximetry 98 Oxygen Delivery Method Oxygen Flow Rate 07/10/23 05:00 07/10/23 05:00 07/10/23 05:00 Temperature Pulse Rate 110 H Respiratory Rate 20 Blood Pressure 112/74 Pulse Oximetry 97 Oxygen Delivery Method Mechanical Ventilation Oxygen Flow Rate 07/10/23 05:30 07/10/23 05:30 07/10/23 06:00 Temperature Pulse Rate 117 H 118 H Respiratory Rate 21 15 Blood Pressure 117/73 Pulse Oximetry 97 97 Oxygen Delivery Method Oxygen Flow Rate 07/10/23 06:00 07/10/23 06:30 07/10/23 06:30 Temperature Pulse Rate 114 H Respiratory Rate 16 Blood Pressure 116/64 110/66 Pulse Oximetry 97 Oxygen Delivery Method Oxygen Flow Rate 07/10/23 07:00 07/10/23 07:00 07/10/23 07:00 Temperature Pulse Rate 110 H Respiratory Rate 15 Blood Pressure 111/79 Pulse Oximetry 98 97 Oxygen Delivery Method Mechanical Ventilation Oxygen Flow Rate 35 07/10/23 07:30 07/10/23 07:30 07/10/23 08:00 Temperature 98.2 F Pulse Rate 123 H 117 H Respiratory Rate 15 16 Blood Pressure 120/66 Pulse Oximetry 98 98 Oxygen Delivery Method Oxygen Flow Rate 07/10/23 08:00 07/10/23 08:30 07/10/23 08:30 Temperature Pulse Rate 124 H Respiratory Rate 20 Blood Pressure 125/70 130/90 Pulse Oximetry 98 Oxygen Delivery Method Oxygen Flow Rate 07/10/23 09:00 07/10/23 09:00 07/10/23 09:03 Temperature Pulse Rate 124 H 113 H Respiratory Rate 18 Blood Pressure 143/73 H 143/73 H Pulse Oximetry 98 Oxygen Delivery Method Oxygen Flow Rate Fraction of Inspired Oxygen 40 Oxygen Delivery Method Mechanical Ventilation Oxygen Flow Rate 35 Narrative Exam Narrative: Intubated. RASS -1. On low dose propofol and fentanyl. Assessment & Plan Assessment & Plan narrative: NEURO: # Acute encephalopathy -- Improving slowly -- Stop all sedation today -- RASS goal -1 to 0 -- Cont frequent reorientation -- Daily CAM ICU RESP: # Acute hypoxemia respiratory failure -- Secondary to sepsis causing acute lung injury. -- On PS FiO2 40% -- Cx negative to date -- DC vancomycin -- On ceftriaxone -- Mee solumedrol 40 mg IV q8hr i -- Plan for extubation once family arrive at bedside. Recommend GOC discussion about DNR/DNI in the event of a failed extubation. -- HOB elevation -- Aspiration precaution -- Goal SpO2 > 88% CVS: # A fib w/ RVR -- Rate controlled w/ diltiazem gtt -- Goal HR < 110 -- CHADVASC score 4 -> need systemic AC when cleared by surgery -- High lytes goal -- On cardizem 30 mg q6hr # HTN -- Goal SBP < 140 : # FAITH -- DC lasix -- AVoid nephrotoxin agents -- Monitor UOP -- Trend BMP ID: # Severe sepsis -- Cx negative to date -- On ceftriaxone/flagyl -- DC vancomycin -- Follow up cx data GI: # SBO -- s/p SARITA -- On TPN -- Management per primary surgical team ENDO: -- Goal BS < 180 -- On ISS D/w bedside RN. Time Spent With Patient Time with patient: 30 to 49 minutes with 50% spent counseling/coordinating care
--- NOTE | 2023-07-10 10:00 | RT ---
PT EXTUBATED PER ORDER BY DR. MAHONEY. PT PLACED ON 3 LPM N/C. PT APPEARS W/O RESPIRATORY DISTRESS. O2 SAT NOTED AT 94%. RR = 18.
--- NOTE | 2023-07-10 10:57 | P.PN_ITS ---
Subjective Subjective Date Patient Seen: 07/10/23 Time Patient Seen: 10:57 Interval history: Successful extubation this am No abdominal pain or nausea Exam Vital Signs (past 8 hours): - 07/10/23 03:00 07/10/23 03:00 07/10/23 03:24 Temperature Pulse Rate 126 H 125 H Respiratory Rate 16 Blood Pressure 129/65 129/65 Pulse Oximetry 98 Oxygen Delivery Method Oxygen Flow Rate 07/10/23 03:30 07/10/23 03:30 07/10/23 04:00 Temperature Pulse Rate 118 H 118 H Respiratory Rate 16 17 Blood Pressure 124/80 Pulse Oximetry 97 98 Oxygen Delivery Method Oxygen Flow Rate 07/10/23 04:00 07/10/23 04:30 07/10/23 04:30 Temperature Pulse Rate 108 H Respiratory Rate 16 Blood Pressure 117/65 114/61 Pulse Oximetry 98 Oxygen Delivery Method Oxygen Flow Rate 07/10/23 05:00 07/10/23 05:00 07/10/23 05:00 Temperature Pulse Rate 110 H Respiratory Rate 20 Blood Pressure 112/74 Pulse Oximetry 97 Oxygen Delivery Method Mechanical Ventilation Oxygen Flow Rate 07/10/23 05:30 07/10/23 05:30 07/10/23 06:00 Temperature Pulse Rate 117 H 118 H Respiratory Rate 21 15 Blood Pressure 117/73 Pulse Oximetry 97 97 Oxygen Delivery Method Oxygen Flow Rate 07/10/23 06:00 07/10/23 06:30 07/10/23 06:30 Temperature Pulse Rate 114 H Respiratory Rate 16 Blood Pressure 116/64 110/66 Pulse Oximetry 97 Oxygen Delivery Method Oxygen Flow Rate 07/10/23 07:00 07/10/23 07:00 07/10/23 07:00 Temperature Pulse Rate 110 H Respiratory Rate 15 Blood Pressure 111/79 Pulse Oximetry 98 97 Oxygen Delivery Method Mechanical Ventilation Oxygen Flow Rate 35 07/10/23 07:30 07/10/23 07:30 07/10/23 08:00 Temperature 98.2 F Pulse Rate 123 H 117 H Respiratory Rate 15 16 Blood Pressure 120/66 Pulse Oximetry 98 98 Oxygen Delivery Method Oxygen Flow Rate 07/10/23 08:00 07/10/23 08:30 07/10/23 08:30 Temperature Pulse Rate 124 H Respiratory Rate 20 Blood Pressure 125/70 130/90 Pulse Oximetry 98 Oxygen Delivery Method Oxygen Flow Rate 07/10/23 09:00 07/10/23 09:00 07/10/23 09:00 Temperature Pulse Rate 124 H Respiratory Rate 18 Blood Pressure 143/73 H Pulse Oximetry 98 Oxygen Delivery Method Mechanical Ventilation Oxygen Flow Rate 07/10/23 09:03 07/10/23 09:30 07/10/23 09:30 Temperature Pulse Rate 113 H 125 H Respiratory Rate 31 H Blood Pressure 143/73 H 123/74 Pulse Oximetry 98 Oxygen Delivery Method Oxygen Flow Rate 07/10/23 10:00 07/10/23 10:00 07/10/23 10:01 Temperature Pulse Rate 118 H 107 H Respiratory Rate 33 H 18 Blood Pressure 124/68 Pulse Oximetry 95 94 Oxygen Delivery Method Nasal Cannula Oxygen Flow Rate 3 07/10/23 10:01 07/10/23 10:01 Temperature Pulse Rate 120 H Respiratory Rate 27 H Blood Pressure 126/75 Pulse Oximetry 96 Oxygen Delivery Method Oxygen Flow Rate Fraction of Inspired Oxygen 40 Oxygen Delivery Method Nasal Cannula Oxygen Flow Rate 3 Narrative Exam Narrative: Gen-Elderly woman alert and oriented Chest-Non labored Abdomen-Soft, midline dressing CDI Ext-WWP Objective Labs 07/10/23 06:23 07/10/23 06:23 Labs: Laboratory Results - last 24 hr 07/10/23 06:23 WBC 16.9 H RBC 3.82 L Hgb 11.8 L Hct 35.6 L MCV 93.4 MCH 31.0 MCHC 33.2 RDW 13.4 Plt Count 256 Neut % (Auto) Not Reportable Lymph % (Auto) Not Reportable [place] % (Auto) Not Reportable Eos % (Auto) Not Reportable Baso % (Auto) Not Reportable Lymph # (Auto) Not Reportable [place] # (Auto) Not Reportable Baso # (Auto) Not Reportable Total Counted 100 Seg Neutrophils % 94.0 H Band Neutrophils % 1.0 L Lymphocytes % (Manual) 3.0 L Monocytes % (Manual) 2.0 Neutrophils # (Manual) 79221 H RBC Morphology Normal morphology Sodium 135 L Potassium 3.8 Chloride 102 Carbon Dioxide 23 BUN 86 H Creatinine 1.27 H Estimated GFR 42 L BUN/Creatinine Ratio 67.7 H Glucose 173 H Calcium 8.3 L Phosphorus 5.5 H D Magnesium 2.1 NT-Pro-B Natriuret Pep 3610 H Prealbumin 13.0 L Triglycerides 43 PFSH Medical History Symptomatic anemia Port-A-Cath in place Scoliosis Arthritis Pulmonary nodule Fallopian tube carcinoma Essential hypertension Surgical History Status post hip hemiarthroplasty (04/01/22) History of lung biopsy (2016) S/P total abdominal hysterectomy and bilateral salpingo-oophorectomy (~2013) History of partial pancreatectomy Status post exploratory laparotomy Status post splenectomy (2015) Social History household members: spouse Smoking Status: Former smoker alcohol intake: former Assessment & Plan Post-op Postoperative Procedures: Procedures Operation Date: 07/04/23 10:00 Actual Procedure Side Surgeon p Exploratory Laparotomy GEN Zayra Granados MD Postoperative status narrative: 83F POD 6 sp exlap SARITA for SBO. -Resolved resp failure, extubated today -Ok for trial clear liquids -Continue TPN -Ok for systemic anticoagulation from surgical team
--- NOTE | 2023-07-10 11:14 | PM.PN.1 ---
Subjective Subjective Date Patient Seen: 07/10/23 Time Patient Seen: 11:14 Interval history: Extubated at 10am this morning. Breathing well on her own and coherent to surroundings. Thankful for her care and denies any significant discomfort at this time. INDEPENDENT DRIVER at bedside reports doing well post-extubation, maintaining appropriate O2 sat and without excessive RR. HR elevated to 110s on metoprolol 25mg and cardizem 30mg. INDEPENDENT DRIVER communicates to me that family had a meeting last night and again this morning, request patient's code status be switched to DNR after extubation. Exam Vital Signs (past 8 hours): - 07/10/23 03:24 07/10/23 03:30 07/10/23 03:30 Temperature Pulse Rate 125 H 118 H Respiratory Rate 16 Blood Pressure 129/65 124/80 Pulse Oximetry 97 Oxygen Delivery Method Oxygen Flow Rate 07/10/23 04:00 07/10/23 04:00 07/10/23 04:30 Temperature Pulse Rate 118 H 108 H Respiratory Rate 17 16 Blood Pressure 117/65 Pulse Oximetry 98 98 Oxygen Delivery Method Oxygen Flow Rate 07/10/23 04:30 07/10/23 05:00 07/10/23 05:00 Temperature Pulse Rate 110 H Respiratory Rate 20 Blood Pressure 114/61 112/74 Pulse Oximetry 97 Oxygen Delivery Method Oxygen Flow Rate 07/10/23 05:00 07/10/23 05:30 07/10/23 05:30 Temperature Pulse Rate 117 H Respiratory Rate 21 Blood Pressure 117/73 Pulse Oximetry 97 Oxygen Delivery Method Mechanical Ventilation Oxygen Flow Rate 07/10/23 06:00 07/10/23 06:00 07/10/23 06:30 Temperature Pulse Rate 118 H 114 H Respiratory Rate 15 16 Blood Pressure 116/64 Pulse Oximetry 97 97 Oxygen Delivery Method Oxygen Flow Rate 07/10/23 06:30 07/10/23 07:00 07/10/23 07:00 Temperature Pulse Rate 110 H Respiratory Rate 15 Blood Pressure 110/66 111/79 Pulse Oximetry 98 Oxygen Delivery Method Oxygen Flow Rate 07/10/23 07:00 07/10/23 07:30 07/10/23 07:30 Temperature Pulse Rate 123 H Respiratory Rate 15 Blood Pressure 120/66 Pulse Oximetry 97 98 Oxygen Delivery Method Mechanical Ventilation Oxygen Flow Rate 35 07/10/23 08:00 07/10/23 08:00 07/10/23 08:30 Temperature 98.2 F Pulse Rate 117 H 124 H Respiratory Rate 16 20 Blood Pressure 125/70 Pulse Oximetry 98 98 Oxygen Delivery Method Oxygen Flow Rate 07/10/23 08:30 07/10/23 09:00 07/10/23 09:00 Temperature Pulse Rate 124 H Respiratory Rate 18 Blood Pressure 130/90 143/73 H Pulse Oximetry 98 Oxygen Delivery Method Oxygen Flow Rate 07/10/23 09:00 07/10/23 09:03 07/10/23 09:30 Temperature Pulse Rate 113 H 125 H Respiratory Rate 31 H Blood Pressure 143/73 H Pulse Oximetry 98 Oxygen Delivery Method Mechanical Ventilation Oxygen Flow Rate 07/10/23 09:30 07/10/23 10:00 07/10/23 10:00 Temperature Pulse Rate 118 H Respiratory Rate 33 H Blood Pressure 123/74 124/68 Pulse Oximetry 95 Oxygen Delivery Method Oxygen Flow Rate 07/10/23 10:01 07/10/23 10:01 07/10/23 10:01 Temperature Pulse Rate 107 H 120 H Respiratory Rate 18 27 H Blood Pressure 126/75 Pulse Oximetry 94 96 Oxygen Delivery Method Nasal Cannula Oxygen Flow Rate 3 Fraction of Inspired Oxygen 40 Oxygen Delivery Method Nasal Cannula Oxygen Flow Rate 3 Narrative Exam Narrative: General: Alert and oriented, frail appearing Heart: Tachycardic to 110s, irregularly irregular rhythm, no murmur auscultated Respiratory: Nonlabored breathing, good air movement, no wheezing Abdomen: Soft, bowel sounds present, midline dressing CDI Extremities: No appreciable edema Neuro: Normal cognition Objective Labs 07/10/23 06:23 07/10/23 06:23 Labs: Laboratory Results - last 24 hr 07/10/23 06:23 WBC 16.9 H RBC 3.82 L Hgb 11.8 L Hct 35.6 L MCV 93.4 MCH 31.0 MCHC 33.2 RDW 13.4 Plt Count 256 Neut % (Auto) Not Reportable Lymph % (Auto) Not Reportable [place] % (Auto) Not Reportable Eos % (Auto) Not Reportable Baso % (Auto) Not Reportable Lymph # (Auto) Not Reportable [place] # (Auto) Not Reportable Baso # (Auto) Not Reportable Total Counted 100 Seg Neutrophils % 94.0 H Band Neutrophils % 1.0 L Lymphocytes % (Manual) 3.0 L Monocytes % (Manual) 2.0 Neutrophils # (Manual) 87544 H RBC Morphology Normal morphology Sodium 135 L Potassium 3.8 Chloride 102 Carbon Dioxide 23 BUN 86 H Creatinine 1.27 H Estimated GFR 42 L BUN/Creatinine Ratio 67.7 H Glucose 173 H Calcium 8.3 L Phosphorus 5.5 H D Magnesium 2.1 NT-Pro-B Natriuret Pep 3610 H Prealbumin 13.0 L Triglycerides 43 PFSH Medical History Symptomatic anemia Port-A-Cath in place Scoliosis Arthritis Pulmonary nodule Fallopian tube carcinoma Essential hypertension Surgical History Status post hip hemiarthroplasty (04/01/22) History of lung biopsy (2016) S/P total abdominal hysterectomy and bilateral salpingo-oophorectomy (~2013) History of partial pancreatectomy Status post exploratory laparotomy Status post splenectomy (2015) Social History household members: spouse Smoking Status: Former smoker alcohol intake: former Assessment & Plan Assessment & Plan narrative: NEURO: #Acute encephalopathy: -Off sedation, at neurologic baseline per family -Acetaminophen prn for headache -CAM ICU protocol RESP: #Acute hypoxemic respiratory failure: Secondary to sepsis causing acute lung injury -Successfully extubated this morning, maintaining appropriate O2 sat and respiratory rate -Cftx 2g qd + ADAMS 500mg IV q8h -Vanc dc'd -Solu-Medrol 40 mg IV q8h #?RLL PNA -Persistent consolidation on multiple CXR -07/08 Sputum cx with light Gram(-) bacilli, identification & sensitivities pending -Repeat CXR tomorrow CV: #AFib with RVR: Inadequate rate control to 110s-120s this morning -Increase metoprolol To 37.5 mg q6h, titrate as needed -Diltiazem 30 mg q6h #Hypertension -Goal BP < 140/90 GI: #SBO: POD 6 s/p SARITA for SBO -Okay for trial of clear liquids per surgery -Continue TPN, wean as possible -PPI prophylaxis : #FAITH -Avoid nephrotoxic agents -Monitor UOP -Trend BMP ID: #Severe sepsis -07/08 Sputum cx with light Gram(-) bacilli, identification and sensitivities to follow -07/04 Bcx, Ucx negative -Abx as above ENDO: -Goal BS < 180 -On ISS FEN: -Replete lytes prn VTE prophylaxis: -Lovenox subQ b.i.d. Goals of care: Spoke with patient's family later this morning and they confirm wish to avoid significant medical intervention with code status change to DNR. Hopefully she continues to improve but desires no intervention should complications arise. -Code status limited, adjusted to include no intubation -Will require further discussion regarding limited code vs DNR/DNI status Time Spent With Patient Time with patient: 30 to 49 minutes with 50% spent counseling/coordinating care
[2023-07-10] MEDS: METOPROLOL IR 25 MG TABLET 37.5 MG PO ×2 (12:24→17:56)
[2023-07-10] MEDS: HYDROMORPHONE 1 MG INJ IV ×2 (14:17→20:39)
[2023-07-10] MEDS: cefTRIAXone 2,000 MG in SODIUM CHLORIDE 0.9% 100 ML 200 MG IV (16:28)
[2023-07-10] MEDS: AA 5 %/CALCIUM/LYTES/DEXT 20 % 1,500 ML with MULTIVITAMIN 10 ML, TRACE ELEMENTS 1 ML, T... 64.042 ML IV (17:46)
--- NOTE | 2023-07-10 20:11 | P.ICUMDRN_ITS ---
- Date Patient Seen: 07/10/23 :: This patient was seen via real time interactive two-way audiovisual telecommunic ation. Note: Extubated to NC without issues. HR in the 120s and is due for cardiazem. D/w bedside RN.
[2023-07-10] MEDS: ONDANSETRON 4 MG/2 ML INJ IV (23:14)
[2023-07-11] VITALS (42 sets, daily range): BP systolic 138–220; BP diastolic 76–134; PULSE 86–143; RESP 8–27; TEMP 36.6–37.3; O2SAT 92–97
[2023-07-11] MEDS: INSULIN LISPRO 100 UNIT/ML 3ML VIAL SUBCUT ×5 (00:52→23:45)
[2023-07-11] MEDS: HYDROMORPHONE 2 MG INJ IV ×2 (00:54→03:03)
[2023-07-11] MEDS: metroNIDAZOLE 500 MG/100 ML PIGGYBACK 100 MG IV ×2 (02:59→10:21)
[2023-07-11] MEDS: PROCHLORPERAZINE 10 MG/2 ML VIAL IV ×3 (03:04→23:44)
[2023-07-11] MEDS: dilTIAZem 30 MG TABLET PO ×2 (04:44→10:21)
[2023-07-11] MEDS: ENOXAPARIN 60 MG/0.6 ML SYRINGE 55 MG SUBCUT ×2 (06:22→17:07)
[2023-07-11] MEDS: ONDANSETRON 4 MG/2 ML INJ IV (06:22)
[2023-07-11] MEDS: METOPROLOL IR 25 MG TABLET 37.5 MG PO (06:23)
--- NOTE | 2023-07-11 06:46 | PC.NURSE ---
shift boss RN note Pt awake, A&Ox4, soft voice, FRAZIER with weakness, hesitant to turn and reposition due to pain/nausea, VSS, afebrile, PPPx4, 1+ edema L foot, afib 110-140s, lungs decreased to bases with occasional rhonchi, coughing frequently for small amts thick yellow sputum, states nauseated after coughing, refused prn quaifenissen, O2 sats >92% on 3L NC, abd soft and tender to touch, hypo BS, sched and prn anitemetic given with mild effect, refused PO meds overnight due to nausea, r/c draining clear yellow urine, skin warm, midline abd dsg intact, PICC ROB patent, periph IV L arm patent, meds and labs as ordered, continue to monitor
[2023-07-11] MEDS: PANTOPRAZOLE 40 MG VIAL IV (08:31)
[2023-07-11] MEDS: HYDROMORPHONE 1 MG INJ IV ×2 (08:32→14:57)
[2023-07-11] MEDS: cloNIDine 0.1 MG TABLET 0.2 MG PO (08:32)
--- NOTE | 2023-07-11 08:33 | PM.PNPO.1 ---
Subjective Subjective Date Patient Seen: 07/11/23 Time Patient Seen: 08:33 Interval history: Remains extubated for the past 24hrs +Flatus Generalized mild abdominal pain Exam Vital Signs (past 8 hours): - 07/11/23 01:00 PST 07/11/23 01:00 PST 07/11/23 02:00 Pulse Rate 129 H 131 H Respiratory Rate 24 14 Blood Pressure 151/107 H Pulse Oximetry 96 96 Oxygen Delivery Method Oxygen Flow Rate 07/11/23 02:00 07/11/23 02:00 07/11/23 03:00 Pulse Rate 134 H 135 H Respiratory Rate 14 14 Blood Pressure 148/83 H Pulse Oximetry 97 96 Oxygen Delivery Method Oxygen Flow Rate 07/11/23 03:00 07/11/23 03:04 07/11/23 04:00 Pulse Rate 133 H 128 H Respiratory Rate 9 L Blood Pressure 159/102 H 159/102 H Pulse Oximetry 94 Oxygen Delivery Method Oxygen Flow Rate 07/11/23 04:00 07/11/23 04:44 07/11/23 04:56 Pulse Rate 143 H Respiratory Rate Blood Pressure 165/76 H 165/76 H Pulse Oximetry Oxygen Delivery Method Nasal Cannula Oxygen Flow Rate 07/11/23 05:00 07/11/23 05:00 07/11/23 06:00 Pulse Rate 132 H Respiratory Rate 8 L Blood Pressure 140/92 H 158/97 H Pulse Oximetry 96 Oxygen Delivery Method Oxygen Flow Rate 07/11/23 06:00 07/11/23 07:00 07/11/23 07:00 Pulse Rate 137 H 134 H Respiratory Rate 9 L 16 Blood Pressure Pulse Oximetry 95 94 95 Oxygen Delivery Method Nasal Cannula Oxygen Flow Rate 3 07/11/23 07:00 Pulse Rate Respiratory Rate Blood Pressure 153/110 H Pulse Oximetry Oxygen Delivery Method Oxygen Flow Rate Fraction of Inspired Oxygen 40 Oxygen Delivery Method Nasal Cannula Oxygen Flow Rate 3 Narrative Exam Narrative: Gen-Elderly woman alert and oriented Chest-Mildly labored resp Abdomen-Soft appropriately tender. Midline dressing CDI Objective Labs 07/10/23 06:23 07/10/23 06:23 PFSH Medical History Symptomatic anemia Port-A-Cath in place Scoliosis Arthritis Pulmonary nodule Fallopian tube carcinoma Essential hypertension Surgical History Status post hip hemiarthroplasty (04/01/22) History of lung biopsy (2016) S/P total abdominal hysterectomy and bilateral salpingo-oophorectomy (~2013) History of partial pancreatectomy Status post exploratory laparotomy Status post splenectomy (2015) Social History household members: spouse Smoking Status: Former smoker alcohol intake: former Assessment & Plan Post-op Postoperative Procedures: Procedures Operation Date: 07/04/23 10:00 Actual Procedure Side Surgeon p Exploratory Laparotomy GEN Zayra Granados MD Postoperative status narrative: 83F 1 week sp exlap for SBO with resolved resp failure day. Resp status remains stable 24 hrs sp extuation -Ok for sips of clears -Continue TPN -Await full return of bowel function before advancing
--- NOTE | 2023-07-11 09:05 | P.PN_ITS ---
Subjective Subjective Date Patient Seen: 07/11/23 Time Patient Seen: 09:45 Interval history: Ms. Schmid is resting in bed with her sister and son at bedside this morning. She reports feeling a little bit crummy due to back pain from being in bed for so long as well as nausea. Had to be encouraged by her RN to take pain medication, had some reservations due to concern for constipation. She began developing elevated blood pressures overnight other maximum of 203 systolic. AFib has persisted in RVR despite current medications. She denies any symptoms of hypertensive emergency such as headache, vision change, confusion, chest pain, shortness of breath, new weakness. Resume has some questions such as when she might start anticoagulation due to her AFib now that she is a week post-op and when she might start PT/OT. He also states that her blood pressure has been elevated ever since she started the Avastin chemotherapy for her cancer, however it never been this severe. Exam Vital Signs (past 8 hours): - 07/11/23 02:00 07/11/23 02:00 07/11/23 02:00 Pulse Rate 131 H 134 H Respiratory Rate 14 14 Blood Pressure 148/83 H Pulse Oximetry 96 97 Oxygen Delivery Method Oxygen Flow Rate 07/11/23 03:00 07/11/23 03:00 07/11/23 03:04 Pulse Rate 135 H 133 H Respiratory Rate 14 Blood Pressure 159/102 H 159/102 H Pulse Oximetry 96 Oxygen Delivery Method Oxygen Flow Rate 07/11/23 04:00 07/11/23 04:00 07/11/23 04:44 Pulse Rate 128 H 143 H Respiratory Rate 9 L Blood Pressure 165/76 H 165/76 H Pulse Oximetry 94 Oxygen Delivery Method Oxygen Flow Rate 07/11/23 04:56 07/11/23 05:00 07/11/23 05:00 Pulse Rate 132 H Respiratory Rate 8 L Blood Pressure 140/92 H Pulse Oximetry 96 Oxygen Delivery Method Nasal Cannula Oxygen Flow Rate 07/11/23 06:00 07/11/23 06:00 07/11/23 07:00 Pulse Rate 137 H Respiratory Rate 9 L Blood Pressure 158/97 H Pulse Oximetry 95 94 Oxygen Delivery Method Nasal Cannula Oxygen Flow Rate 3 07/11/23 07:00 07/11/23 07:00 07/11/23 08:32 Pulse Rate 134 H 127 H Respiratory Rate 16 Blood Pressure 153/110 H 185/105 H Pulse Oximetry 95 Oxygen Delivery Method Oxygen Flow Rate 07/11/23 08:33 Pulse Rate 127 H Respiratory Rate Blood Pressure 185/105 H Pulse Oximetry Oxygen Delivery Method Oxygen Flow Rate Fraction of Inspired Oxygen 40 Oxygen Delivery Method Nasal Cannula Oxygen Flow Rate 3 Narrative Exam Narrative: General: Alert and oriented, frail appearing Heart: Tachycardic to 110s, irregularly irregular rhythm, no murmur auscultated Respiratory: Nonlabored breathing, good air movement, no wheezing Abdomen: Soft, generalized abdominal pain, bowel sounds present Extremities: No appreciable pitting edema Neuro: Normal cognition, no focal weakness Objective Labs 07/11/23 11:40 07/11/23 11:40 PFS Medical History Symptomatic anemia Port-A-Cath in place Scoliosis Arthritis Pulmonary nodule Fallopian tube carcinoma Essential hypertension Surgical History Status post hip hemiarthroplasty (04/01/22) History of lung biopsy (2016) S/P total abdominal hysterectomy and bilateral salpingo-oophorectomy (~2013) History of partial pancreatectomy Status post exploratory laparotomy Status post splenectomy (2015) Social History household members: spouse Smoking Status: Former smoker alcohol intake: former Assessment & Plan Assessment & Plan narrative: NEURO: #Acute encephalopathy: -Off sedation, at neurologic baseline per family -Acetaminophen prn for headache -Pain scale with bowel regimen -PT/OT consult -[facility] ICU protocol RESP: #Acute hypoxemic respiratory failure: Secondary to sepsis causing acute lung injury. Now 24h post extubation, maintaining appropriate O2 sat and respiratory rate. #RLL PNA -Persistent consolidation on multiple CXR -07/08 Sputum cx growing Pseudomonas -Start cefepime 2g IV q.8 hours -Vanc/ceftriaxone/metronidazole dc'd -Solu-Medrol 40 mg IV q8h -Cough drops -Repeat CXR tomorrow CV: #AFib with RVR: Inadequate rate control to 110s-130s this morning -Increase metoprolol to 50 mg q6h -Increase diltiazem to 60 mg q6h, titrate as needed -Lovenox for AC #Hypertension: Uncontrolled with systolics reaching 200 diastolics ranging 100- 110. Likely some component of pain, encouraged to stay ahead of pain rather than waiting for it to become severe. Normally takes felodipine 2.5 mg b.i.d. and telmisartan 40 mg b.i.d. at home -Start losartan 50mg daily -CCB and BB as above -Goal BP < 140/90 GI: #SBO: POD 7 s/p SARITA for SBO -Okay for sips of clear liquids, await full return of bowel function before advancing per surgery -Continue TPN -Marinol for nausea -PPI dc'd now that she's taking p.o. : #FAITH -Avoid nephrotoxic agents -Monitor UOP -Trend BMP ID: #Severe sepsis -07/08 Sputum cx growing Pseudomonas -07/04 Bcx, Ucx negative -Abx as above ENDO: -Goal BS < 180 -On ISS FEN: -Replete lytes prn VTE prophylaxis: -Lovenox subQ b.i.d. Goals of care: Confirm with patient and family they do not want any further significant intervention including CPR and intubation for resuscitative measures should future complications arise. -Code status adjusted to DNR Time Spent With Patient Time with patient: 50 to 69 minutes with 50% spent counseling/coordinating care
[2023-07-11] MEDS: LOSARTAN 50 MG TABLET PO (11:41)
[2023-07-11] MEDS: droNABinol 2.5 MG CAPSULE PO (11:42)
[2023-07-11] MEDS: BENZONATATE 100 MG CAPSULE PO (11:42)
[2023-07-11] MEDS: dilTIAZem 30 MG TABLET 60 MG PO ×3 (11:46→23:17)
[2023-07-11 11:52] LABS: Add Manual Diff / Slide Review NO; Basophils Absolute Auto 100 /uL (0-100); Basophils Percent Auto 0.4 % (0-2); Eosinophils Absolute Auto 0 /uL (0-450); Hematocrit 38.6 % (36-46); Hemoglobin 12.6 g/dL (12.0-16.0); Lymphocytes Absolute Auto 1700 /uL (1100-4500); Lymphocytes Percent Auto 12.9 % (25-40); Mean Corpuscular HGB Conc 32.5 % (30-36); Mean Corpuscular Hemoglobin 30.5 PG (26-34); Mean Corpuscular Volume 93.7 fL (80-100); Monocytes Absolute Auto 1600 /uL (0-900); Neutrophils Absolute Auto 9900 /uL (1500-7000); Neutrophils Percent Auto 74.7 % (50-75); Platelet Count 337 X10^3/uL (150-400); Red Blood Cell Count 4.12 X10^6/uL (4.0-5.2); Red Cell Distribution Width 13.6 % (11.6-14.8); White Blood Cell Count 13.2 X10^3/uL (4.5-11.0)
[2023-07-11 12:09] LABS: BUN Creatinine Ratio 74.5 (6-22); Blood Urea Nitrogen 73 mg/dL (7-17); Calcium 8.7 mg/dL (8.4-10.2); Carbon Dioxide 27 mmol/L (22-32); Chloride 108 mmol/L (98-107); Estimated Glomerular Filt Rate 58 mL/min (>60); Glucose 202 mg/dL (80-110); HEMOLYSIS < 15 (0-50); Potassium 3.7 mmol/L (3.4-5.1); Sodium 144 mmol/L (137-145)
[2023-07-11] MEDS: CEFEPIME 2 GM in SODIUM CHLORIDE 0.9% 100 ML IV ×2 (12:09→23:18)
[2023-07-11] MEDS: METOPROLOL IR 25 MG TABLET 50 MG PO ×3 (12:18→23:17)
[2023-07-11] MEDS: AA 5 %/CALCIUM/LYTES/DEXT 20 % 1,500 ML with MULTIVITAMIN 10 ML, TRACE ELEMENTS 1 ML, T... 63.417 ML IV (17:04)
[2023-07-12] VITALS (37 sets, daily range): BP systolic 137–213; BP diastolic 73–129; PULSE 77–145; RESP 14–32; TEMP 37–37.3; O2SAT 85–98
[2023-07-12] MEDS: ENOXAPARIN 60 MG/0.6 ML SYRINGE 55 MG SUBCUT ×2 (05:05→17:24)
[2023-07-12] MEDS: dilTIAZem 30 MG TABLET 60 MG PO (05:05)
[2023-07-12] MEDS: METOPROLOL IR 25 MG TABLET 50 MG PO (05:05)
[2023-07-12 05:24] LABS: Add Manual Diff / Slide Review NO; Basophils Absolute Auto 0 /uL (0-100); Basophils Percent Auto 0.1 % (0-2); Eosinophils Absolute Auto 0 /uL (0-450); Eosinophils Percent Auto 0.1 % (2-4); Hematocrit 37.9 % (36-46); Hemoglobin 12.4 g/dL (12.0-16.0); Lymphocytes Absolute Auto 300 /uL (1100-4500); Lymphocytes Percent Auto 2.5 % (25-40); Mean Corpuscular HGB Conc 32.8 % (30-36); Mean Corpuscular Hemoglobin 30.8 PG (26-34); Mean Corpuscular Volume 93.8 fL (80-100); Monocytes Absolute Auto 1100 /uL (0-900); Monocytes Percent Auto 8.9 % (3-14); Neutrophils Absolute Auto 10900 /uL (1500-7000); Neutrophils Percent Auto 88.4 % (50-75); Platelet Count 322 X10^3/uL (150-400); Red Blood Cell Count 4.05 X10^6/uL (4.0-5.2); Red Cell Distribution Width 13.7 % (11.6-14.8); White Blood Cell Count 12.3 X10^3/uL (4.5-11.0)
[2023-07-12] MEDS: droNABinol 2.5 MG CAPSULE PO ×3 (05:26→20:43)
[2023-07-12 05:37] LABS: Magnesium 2.4 mg/dL (1.6-2.3); Phosphorous 3.3 mg/dL (2.8-4.1)
[2023-07-12 05:38] LABS: BUN Creatinine Ratio 80.7 (6-22); Blood Urea Nitrogen 71 mg/dL (7-17); Calcium 8.9 mg/dL (8.4-10.2); Carbon Dioxide 28 mmol/L (22-32); Chloride 113 mmol/L (98-107); Estimated Glomerular Filt Rate > 60 mL/min (>60); Glucose 180 mg/dL (80-110); HEMOLYSIS 17 (0-50); Sodium 146 mmol/L (137-145)
[2023-07-12] MEDS: INSULIN LISPRO 100 UNIT/ML 3ML VIAL SUBCUT ×2 (06:55→16:57)
--- NOTE | 2023-07-12 07:32 | P.PN_ITS ---
Subjective Subjective Date Patient Seen: 07/12/23 Time Patient Seen: 07:32 Interval history: Patient is successfully extubated over the weekend. Still has a very weak voice now about 48 hours since extubation Struggling with hypertension now as well as persistent tachycardia secondary to her atrial fibrillation Respiratory status is been stable. Starting to slowly re-feed Off diuretic therapy with normal renal function as of this morning Physical and occupational therapy ordered but not yet started Growing Pseudomonas from urine, antibiotic therapy changed to cover Exam Vital Signs (past 8 hours): - 07/12/23 00:45 07/12/23 01:00 07/12/23 05:00 Temperature 98.9 F Pulse Rate Blood Pressure Oxygen Delivery Method Nasal Cannula Nasal Cannula 07/12/23 05:05 07/12/23 05:24 Temperature 98.6 F Pulse Rate 130 H Blood Pressure 137/95 H Oxygen Delivery Method Fraction of Inspired Oxygen 40 Oxygen Delivery Method Nasal Cannula Oxygen Flow Rate 3 Narrative Exam Narrative: Lungs-good breath sounds no wheezes or crackles Abdomen-positive bowel tones minimally tender around incision Extremities-no cyanosis clubbing or edema Objective Labs 07/12/23 05:10 07/12/23 05:10 Labs: Laboratory Results - last 24 hr 07/11/23 07/12/23 11:40 05:10 WBC 13.2 H 12.3 H RBC 4.12 4.05 Hgb 12.6 12.4 Hct 38.6 37.9 MCV 93.7 93.8 MCH 30.5 30.8 MCHC 32.5 32.8 RDW 13.6 13.7 Plt Count 337 322 Neut % (Auto) 74.7 88.4 H Lymph % (Auto) 12.9 L 2.5 L [place] % (Auto) 12.0 8.9 Eos % (Auto) 0.0 L 0.1 L Baso % (Auto) 0.4 0.1 Neut # (Auto) 9900 H 07261 H Lymph # (Auto) 1700 300 L [place] # (Auto) 1600 H 1100 H Eos # (Auto) 0 0 Baso # (Auto) 100 0 Sodium 144 146 H Potassium 3.7 4.0 Chloride 108 H 113 H Carbon Dioxide 27 28 BUN 73 H 71 H Creatinine 0.98 0.88 Estimated GFR 58 L > 60 BUN/Creatinine Ratio 74.5 H 80.7 H Glucose 202 H 180 H Calcium 8.7 8.9 Phosphorus 3.3 D Magnesium 2.4 H [facility] Medical History Symptomatic anemia Port-A-Cath in place Scoliosis Arthritis Pulmonary nodule Fallopian tube carcinoma Essential hypertension Surgical History Status post hip hemiarthroplasty (04/01/22) History of lung biopsy (2016) S/P total abdominal hysterectomy and bilateral salpingo-oophorectomy (~2013) History of partial pancreatectomy Status post exploratory laparotomy Status post splenectomy (2015) Social History household members: spouse Smoking Status: Former smoker alcohol intake: former Assessment & Plan Assessment & Plan narrative: 1. Status post exploratory laparotomy lysis of adhesions-re feeding slowly. Continues on TPN for now. No evidence of complication postoperatively. Will begin to taper down TPN in effort to stimulate appetite. Continue with advancing diet 2. Respiratory-much improved now obviously off of the ventilator. Continue with IV antibiotics. Patient also had an element of pulmonary edema which seems to have cleared. I am also going to reduce the dose of her corticosteroids 3. Atrial fibrillation-patient needs better rate control. Will switch to once daily dosing of diltiazem orally at relatively higher dose. Also switch patient back to her home carvedilol off metoprolol at relatively equivalent dose. Use IV metoprolol and or IV diltiazem as necessary to better control rate. Is fully anticoagulated at this time. Anticipate switching to a direct oral anticoagulant at some point down the road, prior to discharge 4. Hypertension-patient still quite hypertensive. Overall dose of diltiazem will be increased as well as dose losartan. 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 5. Hyperglycemia-blood sugar numbers probably acceptable and will likely improve as we reduce her corticosteroids and reduce her TPN 6. Fluids/electrolytes/nutrition-continues on TPN for now. Hopefully can begin to wean this and switch over to oral intake as she improves over the next several days 7. VTE prophylaxis-patient fully anticoagulated with Lovenox secondary to atrial fibrillation. Continue SCDs 8. Weakness-skilled therapies need to be initiated. 9. UTI with Pseudomonas-continue with current antibiotic therapy. Plan to DC Alvarez probably in the next 24 hours as she becomes more active.
[2023-07-12] MEDS: METOPROLOL TARTRATE 5 MG/5 ML INJ IV ×2 (09:19→20:51)
[2023-07-12] MEDS: dilTIAZem CD 120 MG CAP 240 MG PO (09:20)
[2023-07-12] MEDS: LOSARTAN 50 MG TABLET PO ×2 (09:20→20:32)
[2023-07-12] MEDS: carvediloL 12.5 MG TABLET 25 MG PO ×2 (09:20→20:31)
[2023-07-12] MEDS: DOCUSATE 100 MG CAPSULE PO ×2 (09:21→20:32)
[2023-07-12] MEDS: OXYCODONE IR 5 MG TABLET PO (09:25)
[2023-07-12] MEDS: CEFEPIME 2 GM in SODIUM CHLORIDE 0.9% 100 ML IV ×2 (12:20→23:36)
--- NOTE | 2023-07-12 13:02 | PM.PN.1 ---
Subjective Subjective Date Patient Seen: 07/12/23 Time Patient Seen: 13:02 Interval history: Having some bowel function and tolerating some diet. She has been able to spend some time in a chair today. Exam Vital Signs (past 8 hours): - 07/12/23 05:05 07/12/23 05:24 07/12/23 06:00 Temperature 98.6 F Pulse Rate 130 H Respiratory Rate Blood Pressure 137/95 H 143/93 H Pulse Oximetry Oxygen Delivery Method Oxygen Flow Rate Fraction of Inspired Oxygen 07/12/23 06:00 07/12/23 07:00 07/12/23 07:00 Temperature Pulse Rate 118 H 86 Respiratory Rate 19 16 Blood Pressure Pulse Oximetry 96 96 97 Oxygen Delivery Method Nasal Cannula Oxygen Flow Rate 3 Fraction of Inspired Oxygen 07/12/23 07:00 07/12/23 08:00 07/12/23 08:00 Temperature Pulse Rate 107 H Respiratory Rate 25 H Blood Pressure 154/104 H 206/114 H Pulse Oximetry 96 Oxygen Delivery Method Oxygen Flow Rate Fraction of Inspired Oxygen 07/12/23 08:08 07/12/23 09:00 07/12/23 09:00 Temperature Pulse Rate 77 111 H Respiratory Rate 31 H Blood Pressure Pulse Oximetry 95 97 Oxygen Delivery Method Nasal Cannula Nasal Cannula Oxygen Flow Rate 3 Fraction of Inspired Oxygen 32 07/12/23 09:01 07/12/23 09:01 07/12/23 09:20 Temperature Pulse Rate 126 H 130 H Respiratory Rate 32 H Blood Pressure 200/87 H 200/87 H Pulse Oximetry 95 Oxygen Delivery Method Oxygen Flow Rate Fraction of Inspired Oxygen 07/12/23 09:20 07/12/23 10:00 07/12/23 10:00 Temperature Pulse Rate 130 H 123 H Respiratory Rate 25 H Blood Pressure 200/87 H 213/91 H Pulse Oximetry 97 Oxygen Delivery Method Oxygen Flow Rate Fraction of Inspired Oxygen 07/12/23 10:00 07/12/23 10:26 07/12/23 10:26 Temperature 99.2 F Pulse Rate 104 H Respiratory Rate 21 Blood Pressure 192/94 H Pulse Oximetry Oxygen Delivery Method Oxygen Flow Rate Fraction of Inspired Oxygen Fraction of Inspired Oxygen 32 SaO2/FiO2 Ratio 296 Oxygen Delivery Method Nasal Cannula Oxygen Flow Rate 3 Narrative Exam Narrative: Abdomen soft Awake and alert Objective Labs 07/12/23 05:10 07/12/23 05:10 Labs: Laboratory Results - last 24 hr 11/06/23 05:10 WBC 12.3 H RBC 4.05 Hgb 12.4 Hct 37.9 MCV 93.8 MCH 30.8 MCHC 32.8 RDW 13.7 Plt Count 322 Neut % (Auto) 88.4 H Lymph % (Auto) 2.5 L [place] % (Auto) 8.9 Eos % (Auto) 0.1 L Baso % (Auto) 0.1 Neut # (Auto) 58507 H Lymph # (Auto) 300 L [place] # (Auto) 1100 H Eos # (Auto) 0 Baso # (Auto) 0 Sodium 146 H Potassium 4.0 Chloride 113 H Carbon Dioxide 28 BUN 71 H Creatinine 0.88 Estimated GFR > 60 BUN/Creatinine Ratio 80.7 H Glucose 180 H Calcium 8.9 Phosphorus 3.3 D Magnesium 2.4 H PFSH Medical History Symptomatic anemia Port-A-Cath in place Scoliosis Arthritis Pulmonary nodule Fallopian tube carcinoma Essential hypertension Surgical History Status post hip hemiarthroplasty (04/01/22) History of lung biopsy (2016) S/P total abdominal hysterectomy and bilateral salpingo-oophorectomy (~2013) History of partial pancreatectomy Status post exploratory laparotomy Status post splenectomy (2015) Social History household members: spouse Smoking Status: Former smoker alcohol intake: former Assessment & Plan Assessment and plan (1) Small bowel obstruction: Status: Acute Plan She appears to be making slow steady progress No changes to care
--- NOTE | 2023-07-12 15:30 | PT-IP ANOTE ---
Received PT orders and completed chart review. Pt is found visiting with spouse in room, reports having been up to the chair for lunch already today, and feels maxed out in terms of activity. She states she would be happy to work with PT at next service date. Plan to follow up 07/13. - Val Frost, PT, DPT
--- NOTE | 2023-07-12 16:21 | CM.DPC ---
DCP Continued: CANVAS CUTTER reviewed EMR. CANVAS CUTTER entered room and met with patient, , and dtr Annie at bedside. CANVAS CUTTER answered questions re: SNF. Patient and family request was for [facility] to review. PT pending at this time. CANVAS CUTTER spoke with Gena at [facility]. They have beds and she agrees to review. CM [employer] Shannen kindly agreed to fax referral information to [facility]. Plan: will send PT note when available. CM team will continue to follow closely. Patient preference is [facility] at this time. CHIKIS Castle
--- NOTE | 2023-07-12 16:22 | OT.IP.EVAL ---
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], unspecified as to partial versus complete obstruction (07/02/23) Unspecified intestinal obstruction, unspecified as to partial versus complete obstruction (07/02/23) Surgery Performed Operation Date: 07/04/23 10:00 Actual Procedures p Exploratory Laparotomy GEN - Zayra Granados MD Past Medical History (Last Reviewed 07/02/23 @ 13:28 by Zayra Granados MD) Arthritis Essential hypertension 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 Pulmonary nodule Scoliosis Symptomatic anemia Surgical History (Last Reviewed 07/02/23 @ 13:28 by Zayra Granados MD) History of lung biopsy (2016) History of partial pancreatectomy S/P total abdominal hysterectomy and bilateral salpingo-oophorectomy (~2013) Status post exploratory laparotomy Status post hip hemiarthroplasty (04/01/22) Status post splenectomy (2015) Occupational Therapy Inpatient Evaluation/Re-Eval M1 PT/OT-IP Prior Functional Status Start: 07/12/23 16:23 Freq: NEEDED Status: Active Protocol: Document 07/12/23 16:23 CGR (Rec: 07/12/23 16:36 CGR [id number]) Medical Review Prior Functional Status Medical History Reviewed Yes Communication Pt is an effective verbal communicator. On this date, pt states her voice is very weak and she was whispering. Mobility and Gait Pt was MOD I with the use of a 2ww at baseline. Activities of Daily Living and IADL's Pt states that she was MOD I for ADLs. She uses a shopping service for groceries, and has a shirt cleaner that comes in regularly. Social History Household Members spouse Living Arrangements House Number of Floors (Floors) 3 or More Floors Number of Stairs To Enter/Railing? Pt has 3 steps to enter with B narrow railings and can stay on the roller leveler operator. Home Environment High Toilet,Walk in Shower Home Equipment Front Wheel Walker,Manual Wheelchair,Bedside Commode, Shower Seat with Backrest,Hand Held Shower,Grab Bars Near Toilet,Grab Bars In Shower Employment Status Retired Additional Social History Comment Pt lives with her E[employer] and has a flat bed. 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 M2 OT-IP Current Condition Start: 07/12/23 16:23 Freq: Status: Active Protocol: Document 07/12/23 16:23 CGR (Rec: 07/12/23 16:36 CGR [id number]) Occupational Therapy Current Condition Current Condition Evaluation Date 07/12/23 Treatment Diagnosis RLL PNA requiring intubation, now extubated 07/04 SBO, fallopian tube CA Diagnosis Onset Date 07/02 M3 OT- IP Subjective and Pain Start: 07/12/23 16:23 Freq: Status: Active Protocol: Document 07/12/23 16:23 CGR (Rec: 07/12/23 16:36 CGR [id number]) OT- Subjective Occupational Therapy Visit Type Type Initial Evaluation Visit Start Time 15:56 Visit Stop Time 16:22 Total Visit Minutes 26 Notes Pt's BP near 180 Systolic but oked OT by nursing, per nursing, they are aware and working at getting BP down. OT Pain Assessment Pain When Pain Assessed At Rest Pain Present Pain Present Denied Pain M4 OT- IP ADL's Start: 07/12/23 16:23 Freq: Status: Active Protocol: Document 07/12/23 16:23 CGR (Rec: 07/12/23 16:36 CGR [id number]) OT [id number] Comments OT Self-Feeding Comments not meal time OT ADL-Grooming Comments OT Grooming Comments Pt declined OT ADL-Oral Care Comments Oral Care Comments Pt declined OT ADL-Dressing General Eval Lower Body Dressing Ability Total Assistance Areas Needing Assistance Socks OT ADL-Toileting General Evaluation Toileting Ability Total Assistance Comments OT Toileting Comments campos OT ADL-Bathing Comments OT Bathing Comments not performed M5 OT- IP IADL's Start: 07/12/23 16:23 Freq: Status: Active Protocol: Document 07/12/23 16:23 CGR (Rec: 07/12/23 16:36 CGR [id number]) OT-Instrumental Activities of Daily Living Deficits IADL Deficits Identified No Deficits Home Safety Awareness Awareness of Need for Assistance at Home Good Awareness Ability to Problem Solve Emergency Able to Problem Solve Situations Medication Management Medication Management No Deficits Identified Money Management Money Management No Deficits Identified Meal Preparation Meal Preparation Comments Pt would be unable to perform at this time 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 M6 OT- IP Functional Cognition Start: 07/12/23 16:23 Freq: Status: Active Protocol: Document 07/12/23 16:23 CGR (Rec: 07/12/23 16:36 R [id number]) Cognitive Factors Limiting Selfcare Function Cognitive Ability Level of Alertness Alert Patient Orientation Name,Age,Birthday,Month,Date, Year,Day of Week,Place, Situation Attention Span Ability Capable of Focused Attention, Capable of Sustained Attention Ability to Follow Commands Able to Follow Multi-Step Commands OT- Vision and Hearing OT- Hearing Assessment OT- Hearing Assessment WFL OT- Vision Assessment Visual Acuity WFL Visual Attentiveness WFL Occular Pursuits WFL Visual Convergence WFL M7 OT- IP Mobility and Balance Start: 07/12/23 16:23 Freq: Status: Active Protocol: Document 07/12/23 16:23 CGR (Rec: 07/12/23 16:36 R [id number]) OT- Bed Mobility Assessment Supine to Sit Supine to Sit Assist Minimal Assistance,Moderate Assistance Sit to Supine Sit to Supine Assist Minimal Assistance,Moderate Assistance Scooting Scooting to Edge of Bed Minimal Assistance OT-Transfer Assessment Comments Mobility Comments Not performed, pt declined out of bed activity. OT- Gait Assessment Comments Gait Ability Comments Not performed OT- Balance Assessment Sitting Balance and Reactions Static Sitting Balance Ability Fair Dynamic Sitting Balance Ability Fair M8 OT- IP Objective Assessments Start: 07/12/23 16:23 Freq: Status: Active Protocol: Document 07/12/23 16:23 CGR (Rec: 07/12/23 16:36 R [id number]) OT Gross Range of Motion Upper Extremity Range of Motion Assessment Within Functional Limits OT Strength Upper Extremity Strength Assessment Within Functional Limits Comments Strength Comments 4- to 4/5 throughout OT- Coordination Assessment Upper Extremity Finger to Nose Test Within Functional Limits Finger Tapping Test Within Functional Limits OT-Muscle Tone Assessment Muscle Tone WNL Yes OT Sensation Assessment Edema Edema Absent M9 OT- IP Assessment and Plan Start: 07/12/23 16:23 Freq: Status: Active Protocol: Document 07/12/23 16:23 CGR (Rec: 07/12/23 16:36 R [id number]) OT Summary Assessment and Plan Potential Rehabilitation Potential Good Analytic Complexity at Evaluation Moderate Summary OT Impairments Strength,Balance,Functional Mobility,Grooming,Dressing, Toileting,Bathing,Toilet Transfers,Shower Transfers, Activity Tolerance Progress Towards Goals Slow Progress due to Medical Issues Assessment Summary Pt presents as a moderate complexity evaluation s/p admit for RLL PNA and SBO. Pt underwent 07/04 sx for SBO and was later intubated. Pt is currently extubated but weak. Pt declined standing in todays session and sat EOB. Pt's BP increased to 196/112 at end of session supine in bed. Nursing notified. Pt will likely benefit from SNF upon discharge as pt was not able to health informatics specialist todays session. Recommend d/c to SNF. Goals Self-Feeding Goal Independent Grooming Goal Independent Dressing Goal Independent Toileting Goal Independent Bathing Goal Independent Toilet Transfer Goal Independent Shower Transfer Goal Independent Days to Meet Goals 20 Frequency of Treatment Frequency Of Treatment Once a Day Treatment Plan OT Treatment Plan ADL Training,Functional Mobility,Patient/Family Education,Discharge Planning Other Treatment Recommendations and Next ADLs seated, watch BP Treatment Focus Discharge Recommendations OT Discharge Recommendations SNF Rehab Transportation Needs at Discharge Stretcher/Ambulance
[2023-07-13] VITALS (25 sets, daily range): BP systolic 154–191; BP diastolic 79–141; PULSE 85–149; RESP 13–26; TEMP 36.4–37; O2SAT 83–100
[2023-07-13] MEDS: METOPROLOL TARTRATE 5 MG/5 ML INJ IV (02:27)
[2023-07-13] MEDS: ENOXAPARIN 60 MG/0.6 ML SYRINGE 55 MG SUBCUT ×2 (04:32→18:01)
--- NOTE | 2023-07-13 07:36 | PM.PN.1 ---
Subjective Subjective Date Patient Seen: 07/13/23 Time Patient Seen: 07:10 Interval history: Patient remained somewhat tachycardic and hypertensive through much of the day yesterday and overnight. Required some IV metoprolol on couple of occasions Has been up to chair, but no physical therapy as yet Advancing diet with no identified issues Voice is still very weak Exam Vital Signs (past 8 hours): Fraction of Inspired Oxygen 32 SaO2/FiO2 Ratio 296 Oxygen Delivery Method Nasal Cannula Oxygen Flow Rate 3 Objective Labs 07/12/23 05:10 07/12/23 05:10 ON LICENSE OF [facility] Medical History Symptomatic anemia Port-A-Cath in place Scoliosis Arthritis Pulmonary nodule Fallopian tube carcinoma Essential hypertension Surgical History Status post hip hemiarthroplasty (04/01/22) History of lung biopsy (2016) S/P total abdominal hysterectomy and bilateral salpingo-oophorectomy (~2013) History of partial pancreatectomy Status post exploratory laparotomy Status post splenectomy (2015) Social History household members: spouse Smoking Status: Former smoker alcohol intake: former Assessment & Plan Assessment & Plan narrative: 1. Status post exploratory laparotomy lysis of adhesions-re feeding slowly. Discontinue TPN after yesterday's bag. Will rely on oral intake for nutrition at this point 2. Respiratory-continues much improved than she was at her worst. Continues on parental antibiotics. Still has an oxygen requirement. No change for today 3. Atrial fibrillation-patient needs better rate control. Will advance the dose of her oral diltiazem. She is on maximum dose carvedilol, may need to switch this over to metoprolol which can be probably advanced a bit. I am going to add digoxin to the regimen today in effort for pure rate control. Renal function has been normal so I think this is reasonable choice at this point. 4. Hypertension-patient still quite hypertensive. Increase dose of diltiazem as above. She is on maximum dose losartan. If this is ineffective may need to either as above try metoprolol at a relatively higher dose than the carvedilol verses adding something like clonidine 5. Hyperglycemia-as expected, blood sugars much better on lower dose corticosteroids now off the TPN 6. Fluids/electrolytes/nutrition-continue to re-feed orally. Now off TPN 7. VTE prophylaxis-patient fully anticoagulated with Lovenox secondary to atrial fibrillation. Continue SCDs 8. Weakness-skilled therapies need to be initiated. 9. UTI with Pseudomonas-continue with current antibiotic therapy. Okay to DC Antonio today.
[2023-07-13] MEDS: DIGOXIN 500 MCG/2 ML AMPUL 250 MCG IV (08:24)
[2023-07-13] MEDS: LOSARTAN 50 MG TABLET PO ×2 (08:25→21:12)
[2023-07-13] MEDS: carvediloL 12.5 MG TABLET 25 MG PO ×2 (08:25→21:12)
[2023-07-13] MEDS: dilTIAZem CD 120 MG CAP 360 MG PO (08:25)
[2023-07-13] MEDS: ONDANSETRON 4 MG/2 ML INJ IV ×2 (08:43→17:58)
--- NOTE | 2023-07-13 09:29 | DIET.PN1 ---
Dietary Progress Note TPN stopped last evening due to pts advancing diet to Full Liquids, tolerating. Ht: 175.26 cm Wt: 56.6 kg BMI: 17.6 Last BM: 07/13/23 (07/13/23 08:28) MNA: 11 Chris Score: 19 Diet: 07/10/23 Dinner Clear Liquid Diet Diet Modifications: 07/12/23 Lunch Full Liquid Diet Diet Modifications: May Advance Diet as Tolerated: Yes Nutrition Percent Meal Consumed 50% 07/12/23 18:00 Labs: RBC 4.05 X10^6/uL (4.0-5.2) 07/12/23 05:10 Hgb 12.4 g/dL (12.0-16.0) 07/12/23 05:10 Hct 37.9 % (36-46) 07/12/23 05:10 Creatinine 0.88 mg/dL (0.52-1.04) 07/12/23 05:10 NT-Pro-B Natriuret Pep 3610 pg/mL (<450) H 07/10/23 06:23 Monitoring/Evaluations: Unit Host to assist patient in high protein, high kcal meal choices to support recovery. Electronically Signed by: Neda Nguyễn 07/13/23 09:29 Clinical Dietitian [address] [address]
[2023-07-13] MEDS: CEFEPIME 2 GM in SODIUM CHLORIDE 0.9% 100 ML IV (13:25)
--- NOTE | 2023-07-13 14:48 | PT.IIE ---
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], unspecified as to partial versus complete obstruction (07/02/23) Unspecified intestinal obstruction, unspecified as to partial versus complete obstruction (07/02/23) Surgery Performed Operation Date: 07/04/23 10:00 Actual Procedures p Exploratory Laparotomy GEN - Zayra Granados MD Surgical History (Last Reviewed 07/02/23 @ 13:28 by Zayra Granados MD) History of lung biopsy (2016) History of partial pancreatectomy S/P total abdominal hysterectomy and bilateral salpingo-oophorectomy (~2013) Status post exploratory laparotomy Status post hip hemiarthroplasty (04/01/22) Status post splenectomy (2015) Medical History (Last Reviewed 07/02/23 @ 13:28 by Zayra Granados MD) Arthritis Essential hypertension 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 Pulmonary nodule Scoliosis Symptomatic anemia Physical Therapy Inpatient Evaluation/Re-Eval M1 PT/OT-IP Prior Functional Status Start: 07/12/23 16:23 Freq: NEEDED Status: Active Protocol: Document 07/13/23 14:55 AB (Rec: 07/13/23 15:36 AB [id number]) Medical Review Prior Functional Status Medical History Reviewed Yes Communication Pt is an effective verbal communicator. On this date, pt states her voice is very weak and she was whispering. Mobility and Gait Pt was MOD I with the use of a 2ww at baseline. Activities of Daily Living and IADL's Pt states that she was MOD I for ADLs. She uses a shopping service for groceries, and has a rope cleaner that comes in regularly. Social History Household Members spouse Living Arrangements House Number of Floors (Floors) 3 or More Floors Number of Stairs To Enter/Railing? Pt has 3 steps to enter with B narrow railings and can stay on the entry level programmer. Home Environment High Toilet,Walk in Shower Home Equipment Front Wheel Walker,Manual Wheelchair,Bedside Commode, Shower Seat with Backrest,Hand Held Shower,Grab Bars Near Toilet,Grab Bars In Shower Employment Status Retired Additional Social History Comment Pt lives with her [employer] and has a flat bed. 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 The pt states they have the ability to higher 24/7 assistance if needed. M2 PT-IP Current Condition Start: 07/12/23 14:44 Freq: NEEDED Status: Active Protocol: Document 07/13/23 14:55 AB (Rec: 07/13/23 15:36 AB [id number]) Physical Therapy Current Condition Current Condition Evaluation Date 07/13/23 Treatment Diagnosis generalized weakness; RLL PNA Onset Date 07/04/23 M3 PT-IP Subjective Start: 07/12/23 14:44 Freq: NEEDED Status: Active Protocol: Document 07/13/23 14:55 AB (Rec: 07/13/23 15:36 AB [id number]) Subjective Physical Therapy Visit Type Type Initial Evaluation Visit Start Time 14:16 Visit Stop Time 14:48 Total Visit Minutes 32 Physical Therapy Visit Comments Patient Comments Pt presents seated in chair and is agreeable to return to bed with PT, but does not believe she can perform any additional mobility today. Therapy Pain Assessment Pain When Pain Assessed At Rest Pain Present Pain Present Denied Pain M4 PT-IP Mobility and Gait Start: 07/12/23 14:44 Freq: NEEDED Status: Active Protocol: Document 07/13/23 14:55 AB (Rec: 07/13/23 15:36 AB [id number]) PT-Bed Mobility Assessment Rolling Type of Rolling Roll to Right Level of Assist Standby Assistance Sit to Supine Sit to Supine Minimal Assistance,1 Person Assistance PT-Transfer Assessment Sit to and From Stand Sit to and from Stand Minimal Assistance,1 Person Assistance,Use of Upper Extremities Equipment Transfer Assistive Device Gait Belt,Front Wheeled Walker Transfers Transfer Destination Bed Transfer Technique Stand Step Pivot Transfer Ability Level of Assist Contact Guard Assistance,1 Person Assistance,Use of Upper Extremities Comments Mobility Comments The pt is able to perform STS with Madeline with use of UEs and FWW once standing. However, she voices fear of falling, as she asks PT hang on to me despite PT demonstrating fair standing balance and strength. She then performs stand step pivot transfer to bed with CGA and FWW. Once sitting at EOB, she requires an extended seated rest break due to fatigue and weakness. Of note, HR increased to 140-150 bpm when performing STS and transfer but pt quickly recovered. After resting, the pt performed supine<>sit with Madeline from PT assisting LEs, but pt had to perform several small lateral scoots to position properly in bed. The pt is assisted to comfortable bed position with all needs met and call light within reach. RN and CW were notified of findings. Gait Assessment Comments Gait Comments Was only able to take 1-2 lateral steps to transfer. Stair Climbing Assessment Comments Stair Climbing Comments Not assessed due to weakness/ fatigue. PT-Balance Assessment Sitting Balance and Reactions Static Sitting Balance Ability Good Dynamic Sitting Balance Ability Fair Standing Balance and Reactions Static Standing Balance Ability Fair Dynamic Standing Balance Ability Poor Device Used FWW M5 PT-IP Objective Assessments Start: 07/12/23 14:44 Freq: NEEDED Status: Active Protocol: Document 07/13/23 14:55 AB (Rec: 07/13/23 15:36 AB [id number]) Orientation Orientation/Cognition Level of Alertness Alert Orientation Name,Age,Birthday,Month,Date, Year,Day of Week,Place, Situation Safety Awareness Understands Safety Issues Memory Description No Deficits Noted Comments Pt speaks in a whisper due to being intubated. Gross Range of Motion Upper Extremity ROM Assessment Within Functional Limits Lower Extremity ROM Assessment Within Functional Limits Strength Upper Extremity Strength Assessment Bilaterally Impaired Lower Extremity Strength Assessment Bilaterally Impaired M6 PT-IP Treatment Start: 07/12/23 14:44 Freq: NEEDED Status: Active Protocol: Document 07/13/23 14:55 AB (Rec: 07/13/23 15:36 AB [id number]) Physical Therapy Treatment Education Education Provided Safety Brace Education Patient M7 PT-IP Assessment and Plan Start: 07/12/23 14:44 Freq: NEEDED Status: Active Protocol: Document 07/13/23 14:55 AB (Rec: 07/13/23 15:36 AB [id number]) PT Summary Assessment and Plan Potential Rehabilitation Potential Fair Status of Condition at Evaluation Evolving Summary Impairments Pain,ROM,Strength,Balance,Bed Mobility,Transfers,Gait, Activity Tolerance Assessment Summary Betsy Schmid is an 83 year old female patient presenting with generalized weakness secondary to RLL and s/p exploratory laparotomy performed on 07/04/23. The pt demonstrates significant endurance deficits, as she is only able to complete STS, stand step pivot transfer and sit<>supine bed mobility. She required Madeline x1 with FWW for STS, but was able to transfer with CGA and FWW. The pt then required an extended rest break and then performed sit<> supine with Madeline x1. Ambulation and stairs were not attempted today due to weakness and fatigue. Based on her current level of function PT currently recommends discharge to home with 24/7 assistance and home health PT vs SNF, due to pt expressing not wanting to go to SNF due to being immuno-compromised. The pt's discharge disposition may change based on her progress. She would benefit from skilled PT to improve to her highest level of function. Goals Bed Mobility Goal Independent Transfer Goal Standby Assistance,Front Wheeled Walker Gait Goal Standby Assistance,Front Wheel Walker Gait Distance 50 Other Goals Pt to be able to ambulate 50ft Kelsie with FWW to show improving strength and endurance. Pt to be able to ascend/descend 3 steps with bilateral hand rails and SBA to show improving LE strength. Days to Meet Goals 10 Frequency of Treatment Frequency Of Treatment Once a Day Treatment Plan Physical Therapy Treatment Plan Bed Mobility Training,Transfer Training,Gait Training, Therapeutic Exercise,Balance Retraining,Discharge Planning, Hot or Cold Pack,Neuromuscular Re-ed,Coordination Retraining ,Manual Therapy Precautions Other Precautions Fall risk Weight Bearing Status Weight Bearing Status Weight Bear as Tolerated Recommendations To Nursing Amount of Assist Needed 1 Person Assist Discharge Recommendations PT Discharge Recommendations Home with 24/7 Assist Available,Home Health,Home vs SNF Transportation Needs at Discharge Private Vehicle,Wheelchair/ Cabulance
--- NOTE | 2023-07-13 16:22 | OT.IPNOTE ---
Spoke to nursing regarding seeing pt for OT, nurse states best to hold off until tomorrow as pt has been up several times and resting. To check on the pt tomorrow.
--- NOTE | 2023-07-13 17:18 | CM.DPC ---
DCP Continued: DIGITAL ACCOUNT EXECUTIVE reviewed EMR. Per RN, heart rate better controlled today. Likely stable to d/c to SNF within next few days. DIGITAL ACCOUNT EXECUTIVE coordinated frequently with Gena at [facility] throughout day. Likely can accept, pending what patient's cancer treatment is at this time. CM Tree Worker Shannen sent initial referral information and available therapy notes to [facility] PT rec SNF at this time versus home with / caregiver support. Tentative transport with [facility] set up for 1299 pending medical stability. Plan: pending medical stability and current cancer treatments, likely patient will dc to [facility]. CM team will continue to follow closely. CHIIKS Castle
[2023-07-13] MEDS: DIGOXIN 0.125 MG TABLET PO (17:58)
[2023-07-14] VITALS (11 sets, daily range): BP systolic 144–176; BP diastolic 69–93; PULSE 53–94; RESP 13–26; TEMP 36.1–37.1; O2SAT 88–100
[2023-07-14] MEDS: CEFEPIME 2 GM in SODIUM CHLORIDE 0.9% 100 ML IV ×2 (00:31→14:12)
[2023-07-14] MEDS: OXYCODONE IR 5 MG TABLET PO ×2 (02:12→21:03)
[2023-07-14] MEDS: ENOXAPARIN 60 MG/0.6 ML SYRINGE 55 MG SUBCUT ×2 (05:34→17:15)
--- NOTE | 2023-07-14 07:10 | PM.PN.1 ---
Subjective Subjective Date Patient Seen: 07/14/23 Time Patient Seen: 06:58 Interval history: Patient's voice is some better this morning Heart rate and blood pressure much improved although still gets pretty tachycardic with any activity. She quickly returns to more normal heart rate though with cessation of activity Was able to be up and do minimal work with physical therapy yesterday. Hungry and looking to eat more Exam Vital Signs (past 8 hours): - 07/14/23 00:00 07/14/23 00:00 07/14/23 04:00 Temperature 97.6 F 97.6 F Pulse Rate 85 82 Respiratory Rate 13 14 Blood Pressure 166/92 H Pulse Oximetry 100 97 Oxygen Flow Rate 3 3 07/14/23 04:00 Temperature Pulse Rate Respiratory Rate Blood Pressure 144/70 H Pulse Oximetry Oxygen Flow Rate Fraction of Inspired Oxygen 32 SaO2/FiO2 Ratio 296 Oxygen Delivery Method Nasal Cannula Oxygen Flow Rate 3 Objective Labs 07/15/23 04:30 07/15/23 04:30 [facility] Medical History Symptomatic anemia Port-A-Cath in place Scoliosis Arthritis Pulmonary nodule Fallopian tube carcinoma Essential hypertension Surgical History Status post hip hemiarthroplasty (04/01/22) History of lung biopsy (2016) S/P total abdominal hysterectomy and bilateral salpingo-oophorectomy (~2013) History of partial pancreatectomy Status post exploratory laparotomy Status post splenectomy (2015) Social History household members: spouse Smoking Status: Former smoker alcohol intake: former Assessment & Plan Assessment & Plan narrative: 1. Status post exploratory laparotomy lysis of adhesions-okay to continue to advance diet as able. 2. Respiratory-overall seems stable. Still has a small oxygen requirement. Plan to repeat chest x-ray tomorrow. I am also going to repeat some labs and do a BNP as part of that evaluation. Consider discontinuation of corticosteroids tomorrow 3. Atrial fibrillation-much better rate control with current medication which includes digoxin, plan to check a digoxin level tomorrow. Hopefully as her stamina improves the activity related tachycardia will resolve as well 4. Hypertension-much improved. No change in medication. Tolerating the higher dose meds for her rate control of her AFib just fine 5. Hyperglycemia-much improved. Can discontinue checking blood sugars and will likely discontinue steroids soon 6. Fluids/electrolytes/nutrition-appears to be stable. As above planning to check renal function electrolytes etcetera with blood work tomorrow 7. VTE prophylaxis-patient fully anticoagulated with Lovenox secondary to atrial fibrillation. Continue SCDs 8. Weakness-continue working with physical therapy. Patient globally weak and has a long way to go but certainly well motivated and hopefully will improve rapidly 9. UTI with Pseudomonas-continue with current antibiotic therapy. Would like to treat her with appropriate antibiotic therapy for least 1 week
[2023-07-14] MEDS: dilTIAZem CD 120 MG CAP 360 MG PO (08:56)
[2023-07-14] MEDS: carvediloL 12.5 MG TABLET 25 MG PO ×2 (08:57→20:57)
[2023-07-14] MEDS: LOSARTAN 50 MG TABLET PO ×2 (08:58→20:58)
--- NOTE | 2023-07-14 10:16 | PT.IPTN ---
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], unspecified as to partial versus complete obstruction (07/02/23) Unspecified intestinal obstruction, unspecified as to partial versus complete obstruction (07/02/23) Surgery Performed Operation Date: 07/04/23 10:00 Actual Procedures p Exploratory Laparotomy - Zayra Granados MD Physical Therapy Treatment Note M2 PT-IP Current Condition Start: 07/12/23 14:44 Freq: NEEDED Status: Active Protocol: Document 07/13/23 14:55 AB (Rec: 07/13/23 15:36 AB [id number]) Physical Therapy Current Condition Current Condition Evaluation Date 07/13/23 Treatment Diagnosis generalized weakness; RLL PNA Onset Date 07/04/23 M3 PT-IP Subjective Start: 07/12/23 14:44 Freq: NEEDED Status: Active Protocol: Document 07/14/23 10:29 AB (Rec: 07/14/23 10:51 AB [id number]) Subjective Physical Therapy Visit Type Type Treatment Note Visit Start Time 10:00 Visit Stop Time 10:16 Total Visit Minutes 16 Physical Therapy Visit Comments Patient Comments Pt presents seated in chair and states she would like to go back to bed. Therapy Pain Assessment Pain When Pain Assessed At Rest Pain Present Pain Present Pain Reported Location low back Scale Used did not quanitify Description Aching,Tightness Pain Management Techniques Apply Heat,Re-positioning M4 PT-IP Mobility and Gait Start: 07/12/23 14:44 Freq: NEEDED Status: Active Protocol: Document 07/14/23 10:29 AB (Rec: 07/14/23 10:51 AB [id number]) PT-Bed Mobility Assessment Rolling Type of Rolling Bilateral Level of Assist Standby Assistance Sit to Supine Sit to Supine Minimal Assistance,1 Person Assistance PT-Transfer Assessment Sit to and From Stand Sit to and from Stand Contact Guard Assistance,1 Person Assistance,Use of Upper Extremities Equipment Transfer Assistive Device Gait Belt,Front Wheeled Walker Transfers Transfer Destination Bed Transfer Technique Lateral steps Transfer Ability Level of Assist Contact Guard Assistance,1 Person Assistance,Use of Upper Extremities Comments Mobility Comments Before performing functional mobility, the pt completed therex below and was educated on the importance of incorporating these exercises throughout the day to improve strength and endurance. The chair is left 2 steps away from bed in order to perform lateral stepping to when transferring to bed in order to encourage more mobility. The pt is able to scoot forward in chair with independence, however she required a rest break before attempting STS. She then performed STS with use of UEs and CGA. The pt is able to maintain standing for a few seconds with FWW, then requests to transfer to bed. She takes three lateral steps to right side to get to bed with FWW and CGA. She sits and performs sit<>supine with Madeline from PT assisting left LLE. Of note, the pt's HR continues to rise into 150s bpm when performing STS and transfers, but recovers quickly. Once in supine, PT brought two warm blankets to place under the pt's back to help modulate LBP, with pt rolling bilaterally with SBA using edge of bed. The pt was left resting in bed with all needs met and call light within reach. Gait Assessment Comments Gait Comments Was only able to take 3 lateral steps to transfer. Stair Climbing Assessment Comments Stair Climbing Comments Not assessed due to weakness/ fatigue. PT-Balance Assessment Sitting Balance and Reactions Static Sitting Balance Ability Good Dynamic Sitting Balance Ability Fair Standing Balance and Reactions Static Standing Balance Ability Fair Dynamic Standing Balance Ability Poor Device Used FWW M5 PT-IP Objective Assessments Start: 07/12/23 14:44 Freq: NEEDED Status: Active Protocol: Document 07/13/23 14:55 AB (Rec: 07/13/23 15:36 AB [id number]) Orientation Orientation/Cognition Level of Alertness Alert Orientation Name,Age,Birthday,Month,Date, Year,Day of Week,Place, Situation Safety Awareness Understands Safety Issues Memory Description No Deficits Noted Comments Pt speaks in a whisper due to being intubated. Gross Range of Motion Upper Extremity ROM Assessment Within Functional Limits Lower Extremity ROM Assessment Within Functional Limits Strength Upper Extremity Strength Assessment Bilaterally Impaired Lower Extremity Strength Assessment Bilaterally Impaired M6 PT-IP Treatment Start: 07/12/23 14:44 Freq: NEEDED Status: Active Protocol: Document 07/14/23 10:29 AB (Rec: 07/14/23 10:51 AB [id number]) Physical Therapy Treatment Exercises Exercises Ankle Pumps,Straight Leg Raises,Seated Knee Flexion/ Extension Education Education Provided Safety Brace Education Patient Other Treatments Other Treatment Performed x5 reps each side M7 PT-IP Assessment and Plan Start: 07/12/23 14:44 Freq: NEEDED Status: Active Protocol: Document 07/14/23 10:29 AB (Rec: 07/14/23 10:51 AB [id number]) PT Summary Assessment and Plan Potential Rehabilitation Potential Fair Status of Condition at Evaluation Evolving Summary Impairments Pain,ROM,Strength,Balance,Bed Mobility,Transfers,Gait, Activity Tolerance Progress Towards Goals Slow Progress due to Medical Issues,Slow Progress due to Activity Tolerance Assessment Summary Betsy is making progress, albeit slow progress, towards to her goals. Today, she improved to being CGA with STS and transfer and was able to transfer over a larger distance between chair and bed . However, she continues to be limited by weakness and endurance deficits, as well as by her medical issues. The pt would continue to benefit from skilled PT at this time, with progression to ambulation and possibly stairs as able. PT continues to recommend discharge to home with 24/7 assist and HHPT vs SNF based on her progress. Goals Bed Mobility Goal Independent Transfer Goal Standby Assistance,Front Wheeled Walker Gait Goal Standby Assistance,Front Wheel Walker Gait Distance 50 Other Goals Pt to be able to ambulate 50ft Kelsie with FWW to show improving strength and endurance. Pt to be able to ascend/descend 3 steps with bilateral hand rails and SBA to show improving LE strength. Days to Meet Goals 10 Frequency of Treatment Frequency Of Treatment Once a Day Treatment Plan Physical Therapy Treatment Plan Bed Mobility Training,Transfer Training,Gait Training, Therapeutic Exercise,Balance Retraining,Discharge Planning, Hot or Cold Pack,Neuromuscular Re-ed,Coordination Retraining ,Manual Therapy Precautions Other Precautions Fall risk Weight Bearing Status Weight Bearing Status Weight Bear as Tolerated Recommendations To Nursing Amount of Assist Needed 1 Person Assist Discharge Recommendations PT Discharge Recommendations Home with 24/7 Assist Available,Home Health,Home vs SNF Transportation Needs at Discharge Private Vehicle,Wheelchair/ Cabulance
--- NOTE | 2023-07-14 12:34 | CM.DPC ---
DCP Cont: Per MD, pt making slow progress and to work more with PT and down to 3LO2 and will attempt to wean further and likely here for another 2-3 days. SW met bedside with pt and explained role and discussed SNF recommendation and pt confirms that she declines SNF at this time and wants to d/c home. Pt confirms that [facility] is already providing 24/7 care to her at home while she is admitted and they can assist both spouse and herself at d/c and the Belt Buckle Maker's name is Monse Dumont [phone] and pt states she has updated Monse as well. Pt states he Dtr had to fly back to [place] yesterday but will return on Monday 07/16 and plans to stay a while to assist in their home as needed. Pt requests [facility] be set up for plan of d/c to home. Pt denies any other needs at this time and feels confident with her d/c plan to home and the supports she will have. RACHELLE Pride kindly made initial referral to [facility] . F2F completed and scanned for [facility] to review. Plan: SW to follow closely for plan of discharge to home with [facility] agency all set up, Dtr to fly back and assist, and new [facility] referral made. CHIKIS Monae
--- NOTE | 2023-07-14 15:35 | OT.IP.TRT ---
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], unspecified as to partial versus complete obstruction (07/02/23) Unspecified intestinal obstruction, unspecified as to partial versus complete obstruction (07/02/23) Surgery Performed Operation Date: 07/04/23 10:00 Actual Procedures p Exploratory Laparotomy - Zayra Granados MD Occupational Therapy Treatment Note M2 OT-IP Current Condition Start: 07/12/23 16:23 Freq: Status: Active Protocol: Document 07/12/23 16:23 CGR (Rec: 07/12/23 16:36 CGR [id number]) Occupational Therapy Current Condition Current Condition Evaluation Date 07/12/23 Treatment Diagnosis RLL PNA requiring intubation, now extubated 07/04 SBO, fallopian tube CA Diagnosis Onset Date 07/02 M3 OT- IP Subjective and Pain Start: 07/12/23 16:23 Freq: Status: Active Protocol: Document 07/14/23 15:35 CCC (Rec: 07/14/23 15:49 CCC [id number]) OT- Subjective Occupational Therapy Visit Type Type Treatment Note Visit Start Time 15:27 Visit Stop Time 15:35 Total Visit Minutes 8 Occupational Therapy Visit Comments Patient Comments Pt in bed and not wanting to get up but open to going over energy conservation strategies to use at home. Patient/Caregiver Goals To go home. M4 OT- IP ADL's Start: 07/12/23 16:23 Freq: Status: Active Protocol: Document 07/12/23 16:23 CGR (Rec: 07/12/23 16:36 CGR [id number]) OT [id number] Comments OT Self-Feeding Comments not meal time OT ADL-Grooming Comments OT Grooming Comments Pt declined OT ADL-Oral Care Comments Oral Care Comments Pt declined OT ADL-Dressing General Eval Lower Body Dressing Ability Total Assistance Areas Needing Assistance Socks OT ADL-Toileting General Evaluation Toileting Ability Total Assistance Comments OT Toileting Comments campos OT ADL-Bathing Comments OT Bathing Comments not performed M5 OT- IP IADL's Start: 07/12/23 16:23 Freq: Status: Active Protocol: Document 07/12/23 16:23 CGR (Rec: 07/12/23 16:36 CGR [id number]) OT-Instrumental Activities of Daily Living Deficits IADL Deficits Identified No Deficits Home Safety Awareness Awareness of Need for Assistance at Home Good Awareness Ability to Problem Solve Emergency Able to Problem Solve Situations Medication Management Medication Management No Deficits Identified Money Management Money Management No Deficits Identified Meal Preparation Meal Preparation Comments Pt would be unable to perform at this time Mechanic Senior Mechanic Senior Caregiver Provides Assist Driving Driving Comments 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 M6 OT- IP Functional Cognition Start: 07/12/23 16:23 Freq: Status: Active Protocol: Document 07/14/23 15:35 [facility] (Rec: 07/14/23 15:49 [facility] [id number]) Cognitive Factors Limiting Selfcare Function Cognitive Ability Level of Alertness Alert Cognitive Comments Cognitive Assessment Comments Pt not open to getting up and states has already used the bathroom 4 times today and already sponged off today and states the Dr. Gudino does not want her to shower yet. Pt states good understanding for energy conservation needs. M9 OT- IP Assessment and Plan Start: 07/12/23 16:23 Freq: Status: Active Protocol: Document 07/14/23 15:35 [facility] (Rec: 07/14/23 15:49 [facility] [id number]) OT Summary Assessment and Plan Potential Rehabilitation Potential Good Analytic Complexity at Evaluation Moderate Summary OT Impairments Strength,Balance,Functional Mobility,Grooming,Dressing, Toileting,Bathing,Toilet Transfers,Shower Transfers, Activity Tolerance Progress Towards Goals Slow Progress due to Medical Issues Assessment Summary Pt now wanting to go home and states already has caregivers that are taking care of her . Pt to go home with 24 /7 assist and home health. Goals Self-Feeding Goal Independent Grooming Goal Independent Dressing Goal Independent Toileting Goal Independent Bathing Goal Independent Toilet Transfer Goal Independent Shower Transfer Goal Independent Days to Meet Goals 20 Frequency of Treatment Frequency Of Treatment Once a Day Treatment Plan OT Treatment Plan ADL Training,Functional Mobility,Patient/Family Education,Discharge Planning Discharge Recommendations OT Discharge Recommendations Home with 24/7 Assist Available,Home Health,Home vs SNF Transportation Needs at Discharge Private Vehicle,Wheelchair/ Cabulance
[2023-07-14] MEDS: DIGOXIN 0.125 MG TABLET PO (17:15)
[2023-07-15] VITALS (18 sets, daily range): BP systolic 139–174; BP diastolic 66–84; PULSE 61–87; RESP 12–34; TEMP 36–36.6; O2SAT 83–99
[2023-07-15] MEDS: CEFEPIME 2 GM in SODIUM CHLORIDE 0.9% 100 ML IV ×2 (00:23→11:53)
[2023-07-15] MEDS: OXYCODONE IR 5 MG TABLET PO (01:00)
[2023-07-15 04:46] LABS: Blood Urea Nitrogen 71 mg/dL (7-17); Calcium 8.9 mg/dL (8.4-10.2); Carbon Dioxide 26 mmol/L (22-32); Chloride 121 mmol/L (98-107); Estimated Glomerular Filt Rate 50 mL/min (>60); Glucose 137 mg/dL (80-110); HEMOLYSIS < 15 (0-50); Potassium 3.9 mmol/L (3.4-5.1); Sodium 154 mmol/L (137-145)
[2023-07-15 04:56] LABS: NT-proBNP (BNP-Adult 18+) 3450 pg/mL (<450)
[2023-07-15 05:00] LABS: Digoxin 0.7 ng/mL (0.8-2.0)
[2023-07-15 05:07] LABS: Hematocrit 39.9 % (36-46); Hemoglobin 12.8 g/dL (12.0-16.0); Mean Corpuscular HGB Conc 32.2 % (30-36); Mean Corpuscular Hemoglobin 30.5 PG (26-34); Mean Corpuscular Volume 94.8 fL (80-100); Platelet Count 417 X10^3/uL (150-400); Red Blood Cell Count 4.21 X10^6/uL (4.0-5.2); Red Cell Distribution Width 14.1 % (11.6-14.8); White Blood Cell Count 16.1 X10^3/uL (4.5-11.0)
[2023-07-15 05:09] LABS: Add Manual Diff / Slide Review YES
[2023-07-15 05:47] LABS: Neutrophils Absolute Manual 14168 /uL (3000-5900); Total Cells Counted 100
[2023-07-15 05:48] LABS: Burr Cells 1+
[2023-07-15] MEDS: ENOXAPARIN 60 MG/0.6 ML SYRINGE 55 MG SUBCUT ×2 (06:02→17:01)
--- NOTE | 2023-07-15 07:00 | DI.RAD.S_ITS ---
PROCEDURE: XR CHEST 1V INDICATIONS: pneumonia TECHNIQUE: One view of the chest was acquired. COMPARISON: [facility], CR, XR CHEST 1V, 07/09/2023, 8:28. [facility], CR, XR CHEST 1V, 07/08/2023, 8:13. FINDINGS: Surgical changes and devices: Right chest wall Port-A-Cath. Lungs and pleura: Similar right lung base opacity. Retrocardiac opacity is not as well seen and may have improved. Diffuse reticular opacities are decreased compared to prior and may represent improving edema. Stable probable left pleural effusion. Mediastinum: Mediastinal contours appear normal. Heart size is normal. Bones and chest wall: No suspicious bony lesions. Overlying soft tissues appear unremarkable. IMPRESSION: Similar right lung base opacity. Improvement in left retrocardiac opacity. Improvement in reticular opacities which may represent improving edema. Stable probable left effusion. Dictated by: Chacho Coker M.D. on 07/15/2023 at 8:41 Approved by: Chacho Coker M.D. on 07/15/2023 at 8:43
--- NOTE | 2023-07-15 07:21 | PM.PN.1 ---
Subjective Subjective Date Patient Seen: 07/15/23 Time Patient Seen: 07:00 Interval history: Patient's voice continues to improve. She spent a significant amount of time up out of bed yesterday. She worked with PT and OT and appears to be getting stronger. Still somewhat tachycardic with activity but quickly slows back down with rest Lab work this morning unremarkable except for slight bump in creatinine Chest x-ray this morning shows clearing of her lung blevins with persistence of a right lower lobe infiltrate. However she is now off of oxygen so clinically improved, more so than her x-ray would indicate Not really eating much not very hungry but knows that is important and working hard with that Exam Vital Signs (past 8 hours): - 07/15/23 00:00 07/15/23 00:00 07/15/23 04:00 Temperature 97.5 F L 97.8 F Pulse Rate 81 74 Respiratory Rate 15 12 Blood Pressure 149/84 H Pulse Oximetry 97 98 Oxygen Flow Rate 0 0 07/15/23 04:00 Temperature Pulse Rate Respiratory Rate Blood Pressure 164/76 H Pulse Oximetry Oxygen Flow Rate Fraction of Inspired Oxygen 32 SaO2/FiO2 Ratio 296 Oxygen Delivery Method Room Air Oxygen Flow Rate 0 Objective Labs 07/15/23 04:30 07/15/23 04:30 Labs: Laboratory Results - last 24 hr 07/15/23 04:30 WBC 16.1 H RBC 4.21 Hgb 12.8 Hct 39.9 MCV 94.8 MCH 30.5 MCHC 32.2 RDW 14.1 Plt Count 417 H Neut % (Auto) Not Reportable Lymph % (Auto) Not Reportable [place] % (Auto) Not Reportable Eos % (Auto) Not Reportable Baso % (Auto) Not Reportable Lymph # (Auto) Not Reportable [place] # (Auto) Not Reportable Baso # (Auto) Not Reportable Total Counted 100 Seg Neutrophils % 88.0 H Lymphocytes % (Manual) 8.0 L Monocytes % (Manual) 4.0 Neutrophils # (Manual) 96612 H RBC Morphology See below Rebecca Cells 1+ H Sodium 154 H Potassium 3.9 Chloride 121 H Carbon Dioxide 26 BUN 71 H Creatinine 1.11 H Estimated GFR 50 L BUN/Creatinine Ratio 64.0 H Glucose 137 H Calcium 8.9 NT-Pro-B Natriuret Pep 3450 H Digoxin 0.7 L PFSH Medical History Symptomatic anemia Port-A-Cath in place Scoliosis Arthritis Pulmonary nodule Fallopian tube carcinoma Essential hypertension Surgical History Status post hip hemiarthroplasty (04/01/22) History of lung biopsy (2016) S/P total abdominal hysterectomy and bilateral salpingo-oophorectomy (~2013) History of partial pancreatectomy Status post exploratory laparotomy Status post splenectomy (2015) Social History household members: spouse Smoking Status: Former smoker alcohol intake: former Assessment & Plan Assessment & Plan narrative: 1. Status post exploratory laparotomy lysis of adhesions-okay to continue to advance diet as able. No active issues 2. Respiratory-overall seems stable. Off oxygen now. X-ray shows improvement. Not concerned about right lower lobe which will likely take some time to completely resolve on imaging. Clinically she is much much better. Currently receiving antibiotics for other reasons, but beyond the other reason see no need for ongoing antibiotic therapy. Plan to reduced dose of corticosteroids today as well 3. Atrial fibrillation-much better rate control with current medications, digoxin level acceptably low this morning. No reason to make any changes. 4. Hypertension-much improved. No change in medication. Tolerating the higher dose meds for her rate control of her AFib just fine 5. Hyperglycemia-much improved. We discontinued checking blood sugars yesterday 6. Fluids/electrolytes/nutrition-appears to be stable. Need to encourage increased oral intake 7. VTE prophylaxis-patient fully anticoagulated with Lovenox secondary to atrial fibrillation. Continue SCDs 8. Weakness-continue working with physical therapy. Patient globally weak and has a long way to go but certainly well motivated and hopefully will improve rapidly. Patient will likely be able to return home with increased support at home when ready for discharge hopefully in the next 48-72 hours 9. UTI with Pseudomonas-continue with current antibiotic therapy. Would like to treat her with appropriate antibiotic therapy for least 1 week, which means treatment through the 17 of July. Overall patient is much better. Given the need to continue with antibiotic therapy as above for least 7 days, I would suggest aiming for discharge home perhaps on Wednesday the , will need home health services set up as well as additional caregivers, which already in place mostly for spouse but I am assuming have been helping patient as well
[2023-07-15] MEDS: carvediloL 12.5 MG TABLET 25 MG PO ×2 (08:45→21:55)
[2023-07-15] MEDS: LOSARTAN 50 MG TABLET PO ×2 (08:46→21:55)
[2023-07-15] MEDS: dilTIAZem CD 120 MG CAP 360 MG PO (08:46)
--- NOTE | 2023-07-15 13:26 | PT.IPTN ---
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], unspecified as to partial versus complete obstruction (07/02/23) Unspecified intestinal obstruction, unspecified as to partial versus complete obstruction (07/02/23) Surgery Performed Operation Date: 07/04/23 10:00 Actual Procedures p Exploratory Laparotomy - Zayra Granados MD Physical Therapy Treatment Note M2 PT-IP Current Condition Start: 07/12/23 14:44 Freq: NEEDED Status: Active Protocol: Document 07/13/23 14:55 AB (Rec: 07/13/23 15:36 AB [id number]) Physical Therapy Current Condition Current Condition Evaluation Date 07/13/23 Treatment Diagnosis generalized weakness; RLL PNA Onset Date 07/04/23 M3 PT-IP Subjective Start: 07/12/23 14:44 Freq: NEEDED Status: Active Protocol: Document 07/15/23 13:13 AB (Rec: 07/15/23 13:26 AB [id number]) Subjective Physical Therapy Visit Type Type Treatment Note Visit Start Time 12:40 Visit Stop Time 13:10 Total Visit Minutes 30 Physical Therapy Visit Comments Patient Comments Pt present semi supine in bed and would like to get up to commode with PT. Therapy Pain Assessment Pain When Pain Assessed At Rest Pain Present Pain Present Denied Pain Location low back Pain Management Techniques Apply Heat,Re-positioning M4 PT-IP Mobility and Gait Start: 07/12/23 14:44 Freq: NEEDED Status: Active Protocol: Document 07/15/23 13:13 AB (Rec: 07/15/23 13:26 AB [id number]) PT-Bed Mobility Assessment Supine to Sit Supine to Sit Standby Assistance,Head of Bed Elevated Sit to Supine Sit to Supine Moderate Assistance,1 Person Assistance Scooting Scooting to Edge of Bed Standby Assistance PT-Transfer Assessment Sit to and From Stand Sit to and from Stand Contact Guard Assistance,1 Person Assistance,Use of Upper Extremities Equipment Transfer Assistive Device Gait Belt,Front Wheeled Walker Transfers Transfer Destination Bed Transfer Technique ambulated Transfer Ability Level of Assist Contact Guard Assistance,1 Person Assistance,Use of Upper Extremities Comments Mobility Comments PT placed commode 5ft away from bed to encourage more mobility. The pt was able to perform bed mobility with SBA to get to EOB, however HOB was elevated 40D. Once sitting at EOB, the pt was able to perform STS from bed using UEs , FWW and CGA from PT. Once standing, the pt ambulated 5ft to commode with FWW and CGA. The pt required an extended amount of time in order to have a BM. However, during this time, the pt was educated on safety with ambulation and transfers. The pt then performed STS, demonstrating good recall of hand placement, in order to have pericare performed. DIRECTOR PUBLIC POLICY assisting in performing pericare while PT was CGA with pt in standing with FWW. The pt then required a seated rest break. After an extended rest break, the pt ambulated 5ft to bed. She required modA with BLEs to get to supine position. Once in bed, the pt requested warm blankets be placed under her low back to improve her pain symptoms. At end of session, the pt was left resting comfortably in bed with all needs met, call light within reach, and RN notified of findings. Gait Assessment Gait Gait Assistance Required: Contact Guard Assist,1 Person Assist Distance (Feet) 5 Able to Maintain Weight Bearing Status Yes During Gait Assistive Devices Assistive Device Gait Belt,Front Wheeled Walker Gait Deviations General Gait Pattern Decreased Stride Length, Decreased Feet Clearance, Flexed Trunk Factors Limiting Gait Function Factors Limiting Gait Function Decreased Activity Tolerance, Decreased Strength,Limited Range of Motion,Pain Comments Gait Comments See mobility comments. Stair Climbing Assessment Comments Stair Climbing Comments Not assessed due to weakness/ fatigue. PT-Balance Assessment Sitting Balance and Reactions Static Sitting Balance Ability Good Dynamic Sitting Balance Ability Fair Standing Balance and Reactions Static Standing Balance Ability Fair Dynamic Standing Balance Ability Fair M5 PT-IP Objective Assessments Start: 07/12/23 14:44 Freq: NEEDED Status: Active Protocol: Document 07/13/23 14:55 AB (Rec: 07/13/23 15:36 AB [id number]) Orientation Orientation/Cognition Level of Alertness Alert Orientation Name,Age,Birthday,Month,Date, Year,Day of Week,Place, Situation Safety Awareness Understands Safety Issues Memory Description No Deficits Noted Comments Pt speaks in a whisper due to being intubated. Gross Range of Motion Upper Extremity ROM Assessment Within Functional Limits Lower Extremity ROM Assessment Within Functional Limits Strength Upper Extremity Strength Assessment Bilaterally Impaired Lower Extremity Strength Assessment Bilaterally Impaired M6 PT-IP Treatment Start: 07/12/23 14:44 Freq: NEEDED Status: Active Protocol: Document 07/15/23 13:13 AB (Rec: 07/15/23 13:26 AB [id number]) Physical Therapy Treatment Education Education Provided Safety Brace Education Patient M7 PT-IP Assessment and Plan Start: 07/12/23 14:44 Freq: NEEDED Status: Active Protocol: Document 07/15/23 13:13 AB (Rec: 07/15/23 13:26 AB [id number]) PT Summary Assessment and Plan Potential Rehabilitation Potential Fair Status of Condition at Evaluation Evolving Summary Impairments Pain,ROM,Strength,Balance,Bed Mobility,Transfers,Gait, Activity Tolerance Progress Towards Goals Progressing Toward Goals Assessment Summary The pt demonstrates improved strength and endurance with mobility performed today. She was able to perform supine<> sit with SBA, but with HOB elevated. The pt performed STS , transfer and short bout of ambulation with FWW and CGA. However, she continues to require extended rest breaks to recover between tasks due to weakness and fatigue. The pt is not currently on supplemental O2, and her HR remained below 120bpm throughout mobility. PT continued with education to pt regarding safety with functional mobility, as well as the importance of trying to be as mobile as possible throughout the day to continue making progress. PT continues to recommends discharge of SNF vs home with 24/7 assist and HHPT at this time. Goals Bed Mobility Goal Independent Transfer Goal Standby Assistance,Front Wheeled Walker Gait Goal Standby Assistance,Front Wheel Walker Gait Distance 50 Other Goals Pt to be able to ambulate 50ft Kelsie with FWW to show improving strength and endurance. Pt to be able to ascend/descend 3 steps with bilateral hand rails and SBA to show improving LE strength. Days to Meet Goals 10 Frequency of Treatment Frequency Of Treatment Once a Day Treatment Plan Physical Therapy Treatment Plan Bed Mobility Training,Transfer Training,Gait Training, Therapeutic Exercise,Balance Retraining,Discharge Planning, Hot or Cold Pack,Neuromuscular Re-ed,Coordination Retraining ,Manual Therapy Precautions Other Precautions Fall risk Weight Bearing Status Weight Bearing Status Weight Bear as Tolerated Recommendations To Nursing Amount of Assist Needed 1 Person Assist Discharge Recommendations PT Discharge Recommendations Home with 24/7 Assist Available,Home Health,Home vs SNF Transportation Needs at Discharge Private Vehicle,Wheelchair/ Cabulance
--- NOTE | 2023-07-15 13:45 | OT.IPNOTE ---
Pt resting per nursing and has been up often for toileting need and PT earlier.
--- NOTE | 2023-07-15 14:35 | CM.DPC ---
DCP continued: SALES SYSTEMS ENGINEER reviewed EMR. Per previous SW note, patient no longer wishes to go to SNF. Per Terese note, likely home Wednesday the . Dtr returning from out of town tomorrow Jul 16 to assist with patient's discharge needs. SALES SYSTEMS ENGINEER spoke with Gena at [facility] to cancel referral. Gena appreciative of the information. From Karina at [facility] able to accept patient. SALES SYSTEMS ENGINEER attempted to check in with patient. Patient sleeping soundly. RN notified, advised to let patient sleep, and will continue to monitor. Plan: home with family when medically stable. [facility] to follow. CM team will continue to follow closely. CHIKIS Castle
[2023-07-15] MEDS: DIGOXIN 0.125 MG TABLET PO (17:00)
[2023-07-16] VITALS (20 sets, daily range): BP systolic 144–167; BP diastolic 63–111; PULSE 55–87; RESP 15–18; TEMP 36.4–37.7; O2SAT 53–100
[2023-07-16] MEDS: CEFEPIME 2 GM in SODIUM CHLORIDE 0.9% 100 ML IV ×3 (00:12→23:44)
--- NOTE | 2023-07-16 06:45 | PM.PN.1 ---
Subjective Subjective Date Patient Seen: 07/16/23 Time Patient Seen: 06:45 Interval history: Patient really with no new complaints. Seem to have some frequent bowel movements yesterday but after only a couple of those they actually stopped. I had ordered testing for C diff toxin and some Imodium but she is not required any Imodium and of course has had no further bowel movements for testing so clearly does not have C diff Continues to struggle to eat anything Up with physical therapy and quickly fatigues but making improvement Vital signs continued to be improve Still feels like her breathing is a bit heavy but remains off oxygen etcetera Exam Vital Signs (past 8 hours): - 07/16/23 01:00 07/16/23 04:00 Temperature 97.9 F 98.0 F Pulse Rate 87 84 Respiratory Rate 15 18 Blood Pressure 144/63 H 146/86 H Pulse Oximetry 97 97 Fraction of Inspired Oxygen 32 SaO2/FiO2 Ratio 296 Oxygen Delivery Method Room Air Oxygen Flow Rate 0 Objective Labs 07/15/23 04:30 07/15/23 04:30 [facility] Medical History Symptomatic anemia Port-A-Cath in place Scoliosis Arthritis Pulmonary nodule Fallopian tube carcinoma Essential hypertension Surgical History Status post hip hemiarthroplasty (04/01/22) History of lung biopsy (2016) S/P total abdominal hysterectomy and bilateral salpingo-oophorectomy (~2013) History of partial pancreatectomy Status post exploratory laparotomy Status post splenectomy (2015) Social History household members: spouse Smoking Status: Former smoker alcohol intake: former Assessment & Plan Assessment & Plan narrative: 1. Status post exploratory laparotomy lysis of adhesions-okay to continue to advance diet as able. No active issues. Will need outpatient follow-up regarding her wound care etcetera as per General surgery 2. Respiratory-overall seems stable. She does continue on antibiotics mostly aimed at her cystitis. I have switched her over to oral prednisone and perhaps that can even be discontinued prior to discharge depending on timing of her discharge. 3. Atrial fibrillation-much better rate control with current medications, digoxin level acceptably low this morning. No reason to make any changes. Plan for her to continue current medications without change. I have switched her from Lovenox to a direct oral anticoagulant 4. Hypertension-much improved. No change in medication. Tolerating the higher dose meds for her rate control of her AFib just fine 5. Hyperglycemia-no longer checking blood sugars as her steroids have been significantly reduced and her numbers have been much improved. 6. Fluids/electrolytes/nutrition-appears to be stable. Need to encourage increased oral intake!! 7. VTE prophylaxis-patient fully anticoagulated with Lovenox, now switching to direct oral anticoagulant. Continue with SCDs when in bed as well. 8. Weakness-continue working with physical therapy. Patient globally weak and has a long way to go but certainly well motivated and hopefully will improve rapidly. Patient will likely be able to return home with increased support at home when ready for discharge hopefully in the next 24-48 hours 9. UTI with Pseudomonas-continue with current antibiotic therapy. Would like to treat her with appropriate antibiotic therapy for least 1 week, which means treatment through the 17 of July. Overall patient is much better. Given the need to continue with antibiotic therapy as above for least 7 days, I would suggest aiming for discharge home perhaps on Wednesday the twelfth, will need home health services set up as well as additional caregivers, which already in place mostly for spouse but I am assuming have been helping patient as well
[2023-07-16] MEDS: predniSONE 20 MG TABLET PO (08:39)
[2023-07-16] MEDS: dilTIAZem CD 120 MG CAP 360 MG PO (08:40)
[2023-07-16] MEDS: LOSARTAN 50 MG TABLET PO ×2 (08:40→20:27)
[2023-07-16] MEDS: carvediloL 12.5 MG TABLET 25 MG PO ×2 (08:40→20:27)
--- NOTE | 2023-07-16 10:50 | OT.IPNOTE ---
Spoke to pt's nurse and nurse states pt just used the BSC and wiped and now having to be put back on O2. To check on the pt later.
[2023-07-16 12:09] LABS: Clostridium Difficile Tox PCR Negative for C. diff (Negative)
--- NOTE | 2023-07-16 13:18 | PT-IP ANOTE ---
Per nursing pt is feeling weak and is too tired, is not appropriate for PT. PT will check back in tomorrow with pt.
--- NOTE | 2023-07-16 14:14 | OT.IPNOTE ---
Pt asleep. Per nurse, pt just able to do minimal activity at this time as tires very quickly. Nursing has been able to assist pt for ADL needs.
--- NOTE | 2023-07-16 16:16 | CM.DPC ---
DCP Continued: CORPORATE SERVICES MANAGER reviewed EMR. Per Dr. Gudino note, likely medically stable for d/c tomorrow with HH. [facility] continues to follow. Plan: potentially home with [facility], increase in PP caregivers, and family support. CM team will continue to follow closely. CHIKIS Castle
[2023-07-16] MEDS: DIGOXIN 0.125 MG TABLET PO (17:41)
[2023-07-16] MEDS: RIVAROXABAN 10 MG TABLET 20 MG PO (17:42)
[2023-07-17] VITALS (19 sets, daily range): BP systolic 106–147; BP diastolic 62–94; PULSE 56–89; RESP 16–19; TEMP 35.6–36.3; O2SAT 80–97
--- NOTE | 2023-07-17 06:42 | PC.NURSE ---
pt has had an uneventful, restful shift; she has voided per the bedpan twice; she expressed the desire to discharge home instead of rehab, which the Dr is aware of
[2023-07-17] MEDS: predniSONE 20 MG TABLET PO (09:19)
[2023-07-17] MEDS: dilTIAZem CD 120 MG CAP 360 MG PO (09:19)
[2023-07-17] MEDS: LOSARTAN 50 MG TABLET PO ×2 (09:19→20:53)
[2023-07-17] MEDS: carvediloL 12.5 MG TABLET 25 MG PO ×2 (09:19→20:53)
[2023-07-17] MEDS: droNABinol 2.5 MG CAPSULE PO (09:24)
--- NOTE | 2023-07-17 10:04 | PC.NURSE ---
0930 Pt sleeping up until now, OOB with FWW to commode, then chair, pt states she is feeling very weak and tired, pt c/o having difficulty hearing, breathing and swallowing food this morning. Place 2-3L NC per pt request, pt states she wants this nurse to keep a close eye on her this morning, will monitor closely. Pt has call light within reach
--- NOTE | 2023-07-17 12:06 | PT-IP ANOTE ---
Per nursing pt is very tired and is not appropriate for PT at this time. PT will check back in with pt tomorrow.
[2023-07-17] MEDS: CEFEPIME 2 GM in SODIUM CHLORIDE 0.9% 100 ML IV (13:11)
[2023-07-17] MEDS: DIGOXIN 0.125 MG TABLET PO (17:33)
[2023-07-17] MEDS: RIVAROXABAN 10 MG TABLET 20 MG PO (17:33)
[2023-07-17] MEDS: LOPERAMIDE 2 MG CAPSULE PO (20:53)
[2023-07-18] VITALS (22 sets, daily range): BP systolic 88–145; BP diastolic 56–68; PULSE 51–101; RESP 18–34; TEMP 35.7–36.3; O2SAT 73–100
[2023-07-18 04:47] LABS: Hematocrit 25.5 % (36-46); Hemoglobin 8.2 g/dL (12.0-16.0); Mean Corpuscular HGB Conc 32.2 % (30-36); Mean Corpuscular Hemoglobin 30.2 PG (26-34); Platelet Count 272 X10^3/uL (150-400); Red Blood Cell Count 2.71 X10^6/uL (4.0-5.2); Red Cell Distribution Width 13.8 % (11.6-14.8); White Blood Cell Count 22.8 X10^3/uL (4.5-11.0)
[2023-07-18 04:58] LABS: BUN Creatinine Ratio 90.4 (6-22); Blood Urea Nitrogen 85 mg/dL (7-17); Calcium 8.1 mg/dL (8.4-10.2); Carbon Dioxide 25 mmol/L (22-32); Chloride 119 mmol/L (98-107); Estimated Glomerular Filt Rate > 60 mL/min (>60); Glucose 105 mg/dL (80-110); HEMOLYSIS 42 (0-50); Potassium 4.1 mmol/L (3.4-5.1); Sodium 148 mmol/L (137-145)
[2023-07-18 05:07] LABS: NT-proBNP (BNP-Adult 18+) 2990 pg/mL (<450)
[2023-07-18 05:30] LABS: Add Manual Diff / Slide Review YES
[2023-07-18 05:37] LABS: Neutrophils Absolute Manual 21660 /uL (3000-5900); Total Cells Counted 100
[2023-07-18 05:39] LABS: Anisocytosis 1+
[2023-07-18 05:40] LABS: Acanthocytes 1+; Burr Cells 1+; Target Cells 1+; Tear Drop Cells 1+; Toxic Granulation Present; Toxic Vacuolation Present
--- NOTE | 2023-07-18 06:43 | PC.NURSE ---
Pt has had an uneventful shift and has slept most of the night; she has been wearing her 02 for comfort, as her o2 sat was 94% on room air; she was given imodium once per request; she has denied c/o pain
--- NOTE | 2023-07-18 09:00 | PC.NURSE ---
0900 Pt woke up this am, difficulty hearing, speaking, and pivoting to beside commode, 3LNC placed for comfort, pt excessively drooling as well. BP 88/63 MAP 70, HR 140 continues to be in A-Fib. Pt states that she wants to sit up in the chair (it took 3 people to assist/carry her to chair) to eat breakfast, pt states she wants to go home, but understands that she is not in any shape to go home as of yet. Pt will attempt to eat breakfast and I will continue to monitor closely, call light within reach.
[2023-07-18] MEDS: dilTIAZem CD 120 MG CAP 360 MG PO (10:13)
[2023-07-18] MEDS: predniSONE 20 MG TABLET PO (10:14)
--- NOTE | 2023-07-18 11:55 | PT-IP ANOTE ---
Per RN, pt is currently on hold for therapy due to declining health, including low BP and because pt is in Afib, causing poor tolerance to activity. PT will continue to follow.
--- NOTE | 2023-07-18 12:51 | PM.PN.1 ---
Subjective Subjective Date Patient Seen: 07/17/23 Time Patient Seen: 12:52 Interval history: Reviewed chart and workup thus far. Quite extensive course. She is been intubated twice has had exploratory laparoscopy for a persistent bowel obstruction and is now being treated for Pseudomonas in sputum. Patient with worsening overnight. Typically requires 0-2 L of nasal cannula oxygen is now requiring 3 L. Patient with increase in swallowing difficulties this morning that seemed to have improved over the day. Patient is anxious to get home. Patient is forcing herself to eat. Patient denies significant pain but does feel weak and frustrated overall Patient denies any chest pain. Patient denies any shortness of breath. Exam Vital Signs (past 8 hours): - 07/18/23 07:00 07/18/23 07:00 07/18/23 09:04 Temperature 96.3 F L Pulse Rate 67 Respiratory Rate 34 H Blood Pressure 88/63 L Pulse Oximetry 97 92 Oxygen Delivery Method Nasal Cannula Nasal Cannula Oxygen Flow Rate 3 07/18/23 09:24 07/18/23 10:08 07/18/23 10:12 Temperature Pulse Rate 86 101 H Respiratory Rate Blood Pressure 88/63 L 88/63 L Pulse Oximetry 93 Oxygen Delivery Method Nasal Cannula Oxygen Flow Rate 3 Fraction of Inspired Oxygen 28 SaO2/FiO2 Ratio 296 Oxygen Delivery Method Nasal Cannula Oxygen Flow Rate 3 Narrative Exam Narrative: Patient is alert and oriented x3. She is resting comfortably in hospital bed. Her voice is quiet. Patient is in no apparent distress but appears chronically ill HEENT is unremarkable Neck: Supple without adenopathy Chest: Clear to auscultation with decreased breath sounds bibasilar Cor: Irregularly irregular at a well-controlled rate with distant S1-S2 Abdomen: Positive bowel sounds x4. Abdomen is soft and nontender. Incision is healing well Extremities no edema Neurologic exam nonfocal Objective Labs 07/18/23 04:30 07/18/23 04:30 Labs: Laboratory Results - last 24 hr 07/18/23 04:30 WBC 22.8 H RBC 2.71 L Hgb 8.2 L Hct 25.5 L MCV 94.0 MCH 30.2 MCHC 32.2 RDW 13.8 Plt Count 272 Neut % (Auto) Not Reportable Lymph % (Auto) Not Reportable [place] % (Auto) Not Reportable Eos % (Auto) Not Reportable Baso % (Auto) Not Reportable Lymph # (Auto) Not Reportable [place] # (Auto) Not Reportable Baso # (Auto) Not Reportable Total Counted 100 Seg Neutrophils % 94.0 H Band Neutrophils % 1.0 L Lymphocytes % (Manual) 2.0 L Monocytes % (Manual) 3.0 Neutrophils # (Manual) 12433 H Toxic Granulation Present H Toxic Vacuolation Present H RBC Morphology See below Anisocytosis 1+ H Target Cells 1+ H Tear Drop Cells 1+ H Rebecca Cells 1+ H Acanthocytes (Spur) 1+ H Sodium 148 H Potassium 4.1 Chloride 119 H Carbon Dioxide 25 BUN 85 H Creatinine 0.94 Estimated GFR > 60 BUN/Creatinine Ratio 90.4 H Glucose 105 Calcium 8.1 L NT-Pro-B Natriuret Pep 2990 H PFSH Medical History Symptomatic anemia Port-A-Cath in place Scoliosis Arthritis Pulmonary nodule Fallopian tube carcinoma Essential hypertension Surgical History Status post hip hemiarthroplasty (04/01/22) History of lung biopsy (2016) S/P total abdominal hysterectomy and bilateral salpingo-oophorectomy (~2013) History of partial pancreatectomy Status post exploratory laparotomy Status post splenectomy (2015) Social History household members: spouse Smoking Status: Former smoker alcohol intake: former Assessment & Plan Assessment & Plan narrative: 1. Status post exploratory laparotomy lysis of adhesions-okay to continue to advance diet as able. No active issues. Will need outpatient follow-up regarding her wound care etcetera as per General surgery 2. Worsened respiratory status unclear etiology. We will check BNP tomorrow. Will continue with the higher dose of oxygen. Will continue with antibiotic treatment for Pseudomonas in sputum. Her final dose will be tomorrow pending how she is doing. Oral prednisone and perhaps that can even be discontinued prior to discharge depending on timing of her discharge. 3. Atrial fibrillation-much better rate control with current medications, digoxin level acceptable. No reason to make any changes. Plan for her to continue current medications without change. Patient was started on Xarelto for new onset AFib. I do not think that this is contributing to her hypoxemia. We will continue to monitor. Will continue telemetry. 4. Hypertension-much improved. No change in medication. Tolerating the higher dose meds for her rate control of her AFib just fine 5. Hyperglycemia-no longer checking blood sugars as her steroids have been significantly reduced and her numbers have been much improved. 6. Fluids/electrolytes/nutrition-appears to be stable. Need to encourage increased oral intake!! 7. VTE prophylaxis-patient fully anticoagulated with oral anticoagulant. Continue with SCDs when in bed as well. 8. Weakness-continue working with physical therapy. Patient globally weak and has a long way to go but certainly well motivated and hopefully will improve rapidly. Patient will likely be able to return home with increased support at home when ready for discharge hopefully in the next 24-48 hours 9. Infectious disease. Patient on cefepime for Pseudomonas in sputum. Final dose will be July 17 this evening actually. 10. 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 Patient currently is DNR/DNI. We reviewed this again. Her wishes to go home. But she would like to be healthier to do this. 55 minutes is spent discussing with physicians, nursing, patient and reviewing hospital course, workup, formulating plan and documenting a plan.
--- NOTE | 2023-07-18 13:01 | PM.PN.1 ---
Subjective Subjective Date Patient Seen: 07/18/23 Time Patient Seen: 13:01 Interval history: Patient with unremarkable night. Patient awakened again this morning with feeling difficulty swallowing and quiet her speech. This seems to improve throughout the course of the day. Patient has not had any worsened respiratory symptoms. She is on 3 L nasal cannula oxygen and this has not changed. She is having neck pain on the side of her neck since she woke up this morning and has been intermittent. Heat is helpful for it.. She denies any shortness a breath or chest pain She is forcing herself to eat. Having loose stools and multiple stools a day and was tested yesterday for C diff which was negative. Patient is urinating normally. Exam Vital Signs (past 8 hours): - 07/18/23 07:00 07/18/23 07:00 07/18/23 09:04 Temperature 96.3 F L Pulse Rate 67 Respiratory Rate 34 H Blood Pressure 88/63 L Pulse Oximetry 97 92 Oxygen Delivery Method Nasal Cannula Nasal Cannula Oxygen Flow Rate 3 07/18/23 09:24 07/18/23 10:08 07/18/23 10:12 Temperature Pulse Rate 86 101 H Respiratory Rate Blood Pressure 88/63 L 88/63 L Pulse Oximetry 93 Oxygen Delivery Method Nasal Cannula Oxygen Flow Rate 3 Fraction of Inspired Oxygen 28 SaO2/FiO2 Ratio 296 Oxygen Delivery Method Nasal Cannula Oxygen Flow Rate 3 Narrative Exam Narrative: Blood pressures are lower this morning repeat is in the 90s over 60s. Patient denies any dizziness or lightheadedness Patient is alert and oriented x3 Patient with tenderness over her lateral trapezius and strap muscles of the left lateral neck. There is no swelling or erythema or edema. Remainder of neck exam is unremarkable. I do not feel any lymphadenopathy Chest: Clear to auscultation without wheezes rhonchi or crackles Cor: Irregularly irregular rhythm with well-controlled rate, distant S1-S2 Abdomen: Positive bowel sounds, soft, nontender, incision healing well Extremities: No significant edema Neurologic exam nonfocal Objective Labs 07/18/23 04:30 07/18/23 04:30 Labs: Laboratory Results - last 24 hr 07/18/23 04:30 WBC 22.8 H RBC 2.71 L Hgb 8.2 L Hct 25.5 L MCV 94.0 MCH 30.2 MCHC 32.2 RDW 13.8 Plt Count 272 Neut % (Auto) Not Reportable Lymph % (Auto) Not Reportable Rowan % (Auto) Not Reportable Eos % (Auto) Not Reportable Baso % (Auto) Not Reportable Lymph # (Auto) Not Reportable Rowan # (Auto) Not Reportable Baso # (Auto) Not Reportable Total Counted 100 Seg Neutrophils % 94.0 H Band Neutrophils % 1.0 L Lymphocytes % (Manual) 2.0 L Monocytes % (Manual) 3.0 Neutrophils # (Manual) 37686 H Toxic Granulation Present H Toxic Vacuolation Present H RBC Morphology See below Anisocytosis 1+ H Target Cells 1+ H Tear Drop Cells 1+ H Rebecca Cells 1+ H Acanthocytes (Spur) 1+ H Sodium 148 H Potassium 4.1 Chloride 119 H Carbon Dioxide 25 BUN 85 H Creatinine 0.94 Estimated GFR > 60 BUN/Creatinine Ratio 90.4 H Glucose 105 Calcium 8.1 L NT-Pro-B Natriuret Pep 2990 H PFSH Medical History Symptomatic anemia Port-A-Cath in place Scoliosis Arthritis Pulmonary nodule Fallopian tube carcinoma Essential hypertension Surgical History Status post hip hemiarthroplasty (04/01/22) History of lung biopsy (2016) S/P total abdominal hysterectomy and bilateral salpingo-oophorectomy (~2013) History of partial pancreatectomy Status post exploratory laparotomy Status post splenectomy (2015) Social History household members: spouse Smoking Status: Former smoker alcohol intake: former Assessment & Plan Assessment & Plan narrative: Assessment & Plan narrative: 1. Status post exploratory laparotomy lysis of adhesions-okay to continue to advance diet as able. No active issues. Will need outpatient follow-up regarding her wound care etcetera as per General surgery. Incision is healing well. Patient with loose stools but C diff negative. 2. Worsened respiratory status unclear etiology. Will continue with the higher dose of oxygen. Last dose of antibiotic was last night for Pseudomonas in sputum. Patient without cough or tachypnea or respiratory difficulty. Question whether she is having aspiration pneumonia. WBC is elevated. Patient has also been on prednisone so certainly could be related to this. She is not having any fever. BNP was improved from last time so at this point will hold off on any diuresis. 3. Atrial fibrillation-much better rate control with current medications, digoxin level acceptable. No reason to make any changes. Plan for her to continue current medications without change. Patient was started on Xarelto for new onset AFib. I do not think that this is contributing to her hypoxemia. We will continue to monitor. Will continue telemetry. Carvedilol was held this morning due to patient's low blood pressures. Will continue to monitor. 4. Hypertension-much improved but now hypotension. Will hold blood pressure medications today and continue to monitor. Will continue monitoring heart rate as well. Tolerating the higher dose meds for her rate control of her AFib just fine 5. Hyperglycemia-no longer checking blood sugars as her steroids have been significantly reduced and her numbers have been much improved. 6. Fluids/electrolytes/nutrition-appears to be stable. Need to encourage increased oral intake!! 7. VTE prophylaxis-patient fully anticoagulated with oral anticoagulant. Continue with SCDs when in bed as well. 8. Weakness-continue working with physical therapy. Patient globally weak and has a long way to go but certainly well motivated and hopefully will improve rapidly. Patient is too weak and has not been working with physical therapy over the weekend. 9. Infectious disease. Patient on cefepime for Pseudomonas in sputum. Final dose will be July 17 this evening actually. 10. 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 Patient currently is DNR/DNI. We reviewed this again. Her wishes to go home. But she would like to be healthier to do this. Patient is motivated to go home. We briefly discussed going home with hospice and other such options. At this time patient did not seem willing to engage in this discussion. 57 minutes is spent discussing with physicians, nursing, patient and reviewing hospital course, workup, formulating plan and documenting a plan.
[2023-07-18] MEDS: OXYCODONE IR 5 MG TABLET PO (13:15)
--- NOTE | 2023-07-18 15:03 | CM.DPC ---
DCP Cont: Patient is currently on 3 liters of oxygen, still wants to go home, at this time, has noted increased weakness, was unable to work with P.t. yesterday. Spoke to Dr. Lara, she had mentioned hospice to patient, but patient reluctant to discuss at this time. P: DCP to follow closely. Plan at this time is home when medically stable, [facility] has accepted, and has 24 hour Watch Commander Care set up. Madonna Whitley RN/Saturation Diver
[2023-07-18] MEDS: DIGOXIN 0.125 MG TABLET PO (18:00)
[2023-07-18] MEDS: RIVAROXABAN 10 MG TABLET 20 MG PO (18:00)
[2023-07-18] MEDS: carvediloL 12.5 MG TABLET 25 MG PO (20:28)
[2023-07-18] MEDS: LOSARTAN 50 MG TABLET PO (20:29)
[2023-07-19] VITALS (26 sets, daily range): BP systolic 75–119; BP diastolic 36–68; PULSE 65–80; RESP 15–19; TEMP 36.1–36.5; O2SAT 55–100
--- NOTE | 2023-07-19 07:39 | DI.RAD.S_ITS ---
PROCEDURE: XR CHEST 1V INDICATIONS: hypoxia TECHNIQUE: One view of the chest was acquired. COMPARISON: Outside Film, CT, CT CHEST WITH CONTRAST, 12/31/2022, 14:50. [facility], CR, XR CHEST 1V, 07/08/2023, 8:13. [facility], CR, XR CHEST 1V, 07/06/2023, 10:17. [facility], CR, XR CHEST 1V, 07/15/2023, 6:21. [facility], CR, XR CHEST 1V, 07/09/2023, 8:28. FINDINGS: Surgical changes and devices: Right-sided port with the catheter tip at the cavoatrial junction. Right-sided PICC with the catheter tip at the lower 3rd of the SVC. Lungs and pleura: Prominent lung volumes. Suture material at the left lower lobe. Streaky and consolidative opacity in the right lower lobe, unchanged. No significant pleural effusions. No pneumothorax. Mediastinum: Mediastinal contours appear normal. Heart size is normal. Bones and chest wall: No suspicious bony lesions. Overlying soft tissues appear unremarkable. IMPRESSION: Right-sided lines project in the expected location. Similar streaky and consolidative opacity in the right lower lobe. This could represent pneumonia and/or scarring. Small left pleural effusion is less conspicuous. Left upper lobe pulmonary nodule seen. Dictated by: Sidney Meng M.D. on 07/19/2023 at 8:49 Approved by: Sidney Meng M.D. on 07/19/2023 at 8:54
--- NOTE | 2023-07-19 07:40 | PM.PN.1 ---
Subjective Subjective Date Patient Seen: 07/19/23 Time Patient Seen: 07:40 Interval history: Since I saw patient last she is back on oxygen now with a 3 L oxygen requirement. White count done yesterday is a bit bumped up at 22,000. Difficult to find evidence of her actual persistent hypoxia. She is increasingly weak unable to work with physical therapy yesterday. Idea of hospice was introduced yesterday with patient not willing to engage in that discussion, least not as of yesterday Working hard to try and eat Exam Vital Signs (past 8 hours): - 07/19/23 00:00 07/19/23 04:00 Temperature 97.1 F L 97.2 F L Pulse Rate 71 75 Respiratory Rate 16 19 Blood Pressure 111/56 L 119/68 Pulse Oximetry 100 99 Oxygen Flow Rate 2.5 2.5 Fraction of Inspired Oxygen 28 SaO2/FiO2 Ratio 296 Oxygen Delivery Method Nasal Cannula Oxygen Flow Rate 2.5 Objective Imaging Chest x-ray: My impression: Improvement in right lower lobe infiltrate without evidence of new finding Labs 07/18/23 04:30 07/18/23 04:30 [facility] Medical History Symptomatic anemia Port-A-Cath in place Scoliosis Arthritis Pulmonary nodule Fallopian tube carcinoma Essential hypertension Surgical History Status post hip hemiarthroplasty (04/01/22) History of lung biopsy (2016) S/P total abdominal hysterectomy and bilateral salpingo-oophorectomy (~2013) History of partial pancreatectomy Status post exploratory laparotomy Status post splenectomy (2015) Social History household members: spouse Smoking Status: Former smoker alcohol intake: former Assessment & Plan Assessment & Plan narrative: 1. Status post exploratory laparotomy lysis of adhesions-okay to continue to advance diet as able. No active issues. Will need outpatient follow-up regarding her wound care etcetera as per General surgery 2. Respiratory-has a oxygen requirement again. Question whether there is recurrent of pneumonia. She was growing Pseudomonas from his sputum before she was extubated. Will obtain another chest x-ray consider restarting antibiotic therapy that would cover the Pseudomonas so potentially a fluoroquinolone orally. Her chest x-ray to my interpretation does not show anything new and if anything looks better. She had her oxygen turned off while I was there and her oxygen saturation remained at 100%. I am not convinced there is anything new going on from a respiratory status 3. Atrial fibrillation-adequate rate control. 4. Hypertension-adequately controlled if anything maybe slightly hypotensive 5. Hyperglycemia-not an active issue 6. Fluids/electrolytes/nutrition-appears to be stable. Electrolytes etcetera normal on blood work yesterday. Needs to increase oral intake significantly! 7. VTE prophylaxis-on direct oral anticoagulant for her AFib 8. Weakness-seems to have gone backwards. I agree that given her current clinical status something such as hospice makes a whole lot more sense than continuing to aggressively treat, but patient's mental attitude it has been too aggressively go after everything all the time no matter what which is why she got reintubated after she was extubated delfino. I discussed this with her at some length this morning. She really wants to go home and is really not of the attitude to ?give up? but we do need to focus on sending her home and keeping her comfortable. She absolutely would I think do very poorly in his care home situation and would certainly I think be better off going home with hospice than the care home option. The moment however will see how the next 24-48 hours goes and continue with plans to send her home with home health services, 29/03 caregiver services privately hired, delfino.
[2023-07-19] MEDS: LOSARTAN 50 MG TABLET PO (09:28)
[2023-07-19] MEDS: dilTIAZem CD 120 MG CAP 360 MG PO (09:28)
[2023-07-19] MEDS: carvediloL 12.5 MG TABLET 25 MG PO (09:28)
[2023-07-19] MEDS: predniSONE 20 MG TABLET 10 MG PO (09:29)
--- NOTE | 2023-07-19 10:35 | PT.IPTN ---
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], unspecified as to partial versus complete obstruction (07/02/23) Unspecified intestinal obstruction, unspecified as to partial versus complete obstruction (07/02/23) Surgery Performed Operation Date: 07/04/23 10:00 Actual Procedures p Exploratory Laparotomy - Zayra Granados MD Physical Therapy Treatment Note M2 PT-IP Current Condition Start: 07/12/23 14:44 Freq: NEEDED Status: Active Protocol: Document 07/13/23 14:55 AB (Rec: 07/13/23 15:36 AB [id number]) Physical Therapy Current Condition Current Condition Evaluation Date 07/13/23 Treatment Diagnosis generalized weakness; RLL PNA Onset Date 07/04/23 M3 PT-IP Subjective Start: 07/12/23 14:44 Freq: NEEDED Status: Active Protocol: Document 07/19/23 14:31 AB (Rec: 07/19/23 15:09 AB [id number]) Subjective Physical Therapy Visit Type Type Treatment Note Visit Start Time 10:12 Visit Stop Time 10:35 Total Visit Minutes 23 Physical Therapy Visit Comments Patient Comments Pt presents semi supine in bed and is agreeable to attempt transfer to chair. M4 PT-IP Mobility and Gait Start: 07/12/23 14:44 Freq: NEEDED Status: Active Protocol: Document 07/19/23 14:31 AB (Rec: 07/19/23 15:09 AB [id number]) PT-Bed Mobility Assessment Supine to Sit Supine to Sit Minimal Assistance,Moderate Assistance,Head of Bed Elevated Scooting Scooting to Edge of Bed Standby Assistance PT-Transfer Assessment Sit to and From Stand Sit to and from Stand Minimal Assistance,Moderate Assistance,1 Person Assistance ,Use of Upper Extremities Equipment Transfer Assistive Device Gait Belt,Front Wheeled Walker Transfers Transfer Destination Chair Transfer Technique Stand Step Pivot Transfer Ability Level of Assist Moderate Assistance,1 Person Assistance,Use of Upper Extremities Comments Mobility Comments The pt required min-modA to perform bed mobility today with PT assisting LEs and trunk as needed while pt performed movement due to significantly increased weakness and fatigue. She mobilizes in short bouts due to these symptoms, and requires extended rest breaks between bouts to rest. Once sitting at EOB, the pt requires min-modA to perform STS, and shows increased dynamic knee valgus, which indicates LE weakness, however did not have LOB. The pt then performed stand step pivot transfer with modA and FWW, with pt assisting to guide pt as well as FWW. Once seated in chair, the pt reports feeling too fatigued to perform more activity. The pt was assisted to comfortable position in chair with all needs met and call light within reach. RN was notified of findings. Stair Climbing Assessment Comments Stair Climbing Comments Not assessed due to weakness/ fatigue. PT-Balance Assessment Sitting Balance and Reactions Static Sitting Balance Ability Good Dynamic Sitting Balance Ability Fair Standing Balance and Reactions Static Standing Balance Ability Poor Dynamic Standing Balance Ability Poor Device Used FWW M5 PT-IP Objective Assessments Start: 07/12/23 14:44 Freq: NEEDED Status: Active Protocol: Document 07/13/23 14:55 AB (Rec: 07/13/23 15:36 AB [id number]) Orientation Orientation/Cognition Level of Alertness Alert Orientation Name,Age,Birthday,Month,Date, Year,Day of Week,Place, Situation Safety Awareness Understands Safety Issues Memory Description No Deficits Noted Comments Pt speaks in a whisper due to being intubated. Gross Range of Motion Upper Extremity ROM Assessment Within Functional Limits Lower Extremity ROM Assessment Within Functional Limits Strength Upper Extremity Strength Assessment Bilaterally Impaired Lower Extremity Strength Assessment Bilaterally Impaired M6 PT-IP Treatment Start: 07/12/23 14:44 Freq: NEEDED Status: Active Protocol: Document 07/19/23 14:31 AB (Rec: 07/19/23 15:09 AB [id number]) Physical Therapy Treatment Education Education Provided Safety Brace Education Patient M7 PT-IP Assessment and Plan Start: 07/12/23 14:44 Freq: NEEDED Status: Active Protocol: Document 07/19/23 14:31 AB (Rec: 07/19/23 15:09 AB [id number]) PT Summary Assessment and Plan Potential Rehabilitation Potential Fair Status of Condition at Evaluation Evolving Summary Impairments Pain,ROM,Strength,Balance,Bed Mobility,Transfers,Gait, Activity Tolerance Progress Towards Goals Slow Progress due to Medical Issues,Slow Progress due to Activity Tolerance Assessment Summary The pt shows decreased tolerance to activity secondary to weakness and fatigue, as demonstrated by requiring increased assistance with bed mobility, STS and transfer. PT recommends discharge of SNF vs home with 24/7 assist and HHPT at this time. However, this may change based on the pt's medical status, as this influences and affects her tolerance to rehab and therapeutic activities. Goals Bed Mobility Goal Independent Transfer Goal Standby Assistance,Front Wheeled Walker Gait Goal Standby Assistance,Front Wheel Walker Gait Distance 50 Other Goals Pt to be able to ambulate 50ft Kelsie with FWW to show improving strength and endurance. Pt to be able to ascend/descend 3 steps with bilateral hand rails and SBA to show improving LE strength. Days to Meet Goals 10 Frequency of Treatment Frequency Of Treatment Once a Day Treatment Plan Physical Therapy Treatment Plan Bed Mobility Training,Transfer Training,Gait Training, Therapeutic Exercise,Balance Retraining,Discharge Planning, Hot or Cold Pack,Neuromuscular Re-ed,Coordination Retraining ,Manual Therapy Precautions Other Precautions Fall risk Weight Bearing Status Weight Bearing Status Weight Bear as Tolerated Recommendations To Nursing Amount of Assist Needed 1 Person Assist,2 Person Assist Discharge Recommendations PT Discharge Recommendations Home with / Assist Available,Home Health,Home vs SNF Transportation Needs at Discharge Private Vehicle,Wheelchair/ Cabulance
[2023-07-19] MEDS: SODIUM CHLORIDE 0.9% 500 ML 1000 ML IV (12:16)
--- NOTE | 2023-07-19 13:15 | CM.DPC ---
DCP Hospice Planning Per MD, pt does not seem to be improving and feels Hospice would be appropriate at this time and will give pt 24-48 hrs on medications to determine if pt improves. SW met bedside with pt and spouse to discuss discharge planning and pt appears very fatigued and discouraged. Spouse requested to discuss d/c planning outside of the room and pt confirms that she is agreeable with this. SW met at length with spouse and he confirms he spoke to MD this morning and is in agreement with Hospice and would like pt home as soon as possible. SW explained the process of [facility] referral and Info Visit and Medicare coverage of Hospice. Spouse confirms that they will need Hospital bed, bedside table, BSC, oxygen. They already have 24/[address] as spouse has hx of stroke with residual physical limitations and uses a w/c but spouse quite sharp and capable of coordination of care. Spouse inquired about BLS ambulance transport as he does not feel pt could tolerate a private vehicle. SW explained no guarantee that Medicare would fully cover the cost of BLS and could be some out of pocket expense and spouse acknowledges understanding and states he's willing to pay if he receives a bill. SW called [facility] and left lengthy msg regarding new referral and attempts to try to get pt discharged andrade per spouse request as he feels pt would do much better at home with their beautiful view and request to call spouse on his cell phone [phone] and RACHELLE Pride kindly faxed clinicals to [facility]. BLS form completed but no transport scheduled yet as waiting to coordinate with [facility]. Plan: SW to follow closely in the AM with [facility] to confirm if Info Visit complete and if DME ordered and when RN can plan Start of Care. Juli Hudson MSW
--- NOTE | 2023-07-19 14:53 | OT.IPNOTE ---
Attempted to see pt for OT services. Pt is sleeping and does not wake to her name. Pt is likely to discharge home with hospice. Will continue to follow.
--- NOTE | 2023-07-19 17:32 | PC.NURSE ---
Day Shift Note Pt alert and oriented this AM, up with PT 1 person assist. When pt wanted to go back to bed pt appeared very weak and pale when un-reclined in the chair. BP was 75/36 and HR 78. Assisted to bed via Ham[place] for safety, BP up to 86/[address] Gudino notified and order received for 500 ml NS bolus and pt's BP meds adjusted. Pt BP up to the 90s/50s after bolus, currently 109/55. Pt sleeping most of day. Sipping on fluids and soups but overall poor appetite.
[2023-07-19] MEDS: RIVAROXABAN 10 MG TABLET 20 MG PO (18:03)
[2023-07-19] MEDS: DIGOXIN 0.125 MG TABLET PO (18:03)
[2023-07-19] MEDS: carvediloL 12.5 MG TABLET PO (20:31)
[2023-07-20] VITALS (18 sets, daily range): BP systolic 105–140; BP diastolic 52–76; PULSE 55–93; RESP 17–22; TEMP 36.4–37.1; O2SAT 8–99
--- NOTE | 2023-07-20 07:26 | P.PN_ITS ---
Subjective Subjective Date Patient Seen: 07/20/23 Time Patient Seen: 07:26 Interval history: Patient quite globally weak with relative hypotension yesterday which for the most part was true on Wednesday as well. Antihypertensive treatments have been significantly reduced, and or held because of her hypotension. Heart rate remains well controlled still sometimes very briefly accelerate with increased activity. Still remains in atrial fibrillation on telemetry No new complaints from patient. Kind of achy everywhere Exam Vital Signs (past 8 hours): - 07/20/23 00:46 07/20/23 05:00 Temperature 97.8 F 98.8 F Pulse Rate 68 76 Respiratory Rate 17 17 Blood Pressure 105/52 L 113/58 L Pulse Oximetry 96 92 Oxygen Flow Rate 0 0 Fraction of Inspired Oxygen 28 SaO2/FiO2 Ratio 296 Oxygen Delivery Method Room Air Oxygen Flow Rate 0 Narrative Exam Narrative: HEENT-unremarkable Lungs-good breath sounds no wheezes no crackles Heart-irregularly irregular no murmur Abdomen-positive bowel tones nontender Extremities-no edema Objective Labs 07/18/23 04:30 07/18/23 04:30 [facility] Medical History Symptomatic anemia Port-A-Cath in place Scoliosis Arthritis Pulmonary nodule Fallopian tube carcinoma Essential hypertension Surgical History Status post hip hemiarthroplasty (04/01/22) History of lung biopsy (2016) S/P total abdominal hysterectomy and bilateral salpingo-oophorectomy (~2013) History of partial pancreatectomy Status post exploratory laparotomy Status post splenectomy (2015) Social History household members: spouse Smoking Status: Former smoker alcohol intake: former Assessment & Plan Assessment & Plan narrative: 1. Status post exploratory laparotomy lysis of adhesions-continue usual postoperative management. No active issues from a GI or postoperative standpoint 2. Respiratory-chest x-ray done yesterday shows no new findings and to my interpretation as noted improvement. Radiology basically concurs. No evidence of active issue with her respiratory tract at this time. Remains off oxygen although oxygen saturation at times just a bit low. 3. Atrial fibrillation-adequate rate control, hopefully more due to the digoxin than anything else given that we are backing off on all the other meds 4. Hypertension-basically need to minimize any and all medications that affect her blood pressure as she is now hypotensive. Hopefully that is a contributing factor to her weakness. Will leave her on low-dose carvedilol given her prior exposure to beta-krystyna therapy but basically discontinue everything else 5. Hyperglycemia-not an active issue 6. Fluids/electrolytes/nutrition-appears to be stable. Needs to increase oral intake 7. VTE prophylaxis-on direct oral anticoagulant for her AFib 8. Weakness-perhaps secondary to hypotension least in part or perhaps the hypotension is a marker of her overall decline. Difficult to know which is the most important aspect. Minimizing all medications to help with blood pressure control. As noted previously I am afraid that patient is basically just shutting down in a global fashion. Not finding any clear reversible etiology for much of the above. This is why I continue to suggest that going home with hospice care is a viable alternative in perhaps the most appropriate alternative. Will continue this discussion with patient and family.
[2023-07-20] MEDS: predniSONE 20 MG TABLET 10 MG PO (08:57)
[2023-07-20] MEDS: carvediloL 12.5 MG TABLET 6.25 MG PO ×2 (08:57→20:11)
[2023-07-20] MEDS: OXYCODONE IR 5 MG TABLET PO ×3 (09:05→20:11)
--- NOTE | 2023-07-20 10:22 | OT.IPNOTE ---
Discharge pt form OT services and pt not having energy to do therapy at this time and her is looking into Hospice for the pt.
--- NOTE | 2023-07-20 11:59 | PT-IP ANOTE ---
Pt will be transitioning to hospice care and is no longer appropriate for skilled PT at this time due to poor tolerance to therapeutic activity. PT will discharge order at this time.
--- NOTE | 2023-07-20 14:41 | CM.DPNOTE ---
Called [facility] for BLS transport for 1300 on 07/21/23Wednesday to residence with 3 stairs at [facility]'s request. Gave them spouses phone number. Shannen Angela CM F[employer] O[employer] Loader.
--- NOTE | 2023-07-20 15:32 | PC.NURSE ---
Day shift note: Pt resting in bed with eyes closed, rouses to voice, but wants to go back to sleep, using bedpan for voiding, just not feeling up to getting out of bed. Dr Gudino at bedside, changing some of cardiac meds and stopping others due to pt soft BP's. Medicated pt with oxy 5mg for c/o of throat pain, pt resting comfortably now. Plan to discharge pt home on hospice tomorrow, pt has have very poor appetite, limited oral intake. Bed low and locked, call light within reach, will continue to monitor
--- NOTE | 2023-07-20 16:08 | CM.DPNOTE ---
DCP Note Cont. Reviewed EMR and team rounds for status updates. Multiple calls made throughout the day to clarify family's goals for d/c. [facility] did the info with spouse this morning, he initially declined hospice, but with Dr. Gudino' support, and his MD son's advice, family are accepting of hospice services. 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 [facility] will open tomorrow between 2-3pm, BLS set-up for 1:00pm transport home. DME delivered today. BLS yellow form and POSLT will be signed by Dr. Gudino tomorrow am, both are completed and in pt's red folder. Pt acknowledges accepting and understanding of this plan. Will continue to assist with cont. d/c coordination tomorrow am as needed.
[2023-07-20] MEDS: RIVAROXABAN 10 MG TABLET 20 MG PO (16:47)
[2023-07-20] MEDS: DIGOXIN 0.125 MG TABLET PO (16:48)
[2023-07-21] VITALS: BP 110/64; PULSE 55; RESP 16; TEMP 36.2; O2SAT 92
[2023-07-21 03:27] VITALS: BP 101/54; O2SAT 79
[2023-07-21] MEDS: OXYCODONE IR 5 MG TABLET PO ×2 (03:27→08:45)
[2023-07-21 04:00] VITALS: BP 101/54; PULSE 85; RESP 20; TEMP 36.5; O2SAT 91
--- NOTE | 2023-07-21 06:20 | PC.NURSE ---
fast food shift lead RN note Pt resting quietly in bed, A&oX3, anxious at times, generalized weakness, requests to use bedpan instead of getting up to bedside commode, VSS, afebrile, PPPx4, 2+ L lower leg edema, afib 90s, at 0345 pt had a one min pause, pt symptomatic at the time, pt returned to afib in 80s and returned to baseline mentation, abd soft with BS, voiding clear earnestine urine in bedpan, skin pale and warm, midline abd incision well approx with steri strips, PICC ROB patent, c/o sore throat, prn analgesic with effect, call blackman within reach, PO intake encouraged, continue to monitor
[2023-07-21 07:00] VITALS: O2SAT 92
--- NOTE | 2023-07-21 07:23 | PM.DS.1 ---
History of Present Illness History of Present Illness Date Patient Seen: 07/21/23 Time Patient Seen: 07:23 Chief complaint: abd pain on fire! 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 Symptoms were less than 24 hours in duration. She had nausea but no emesis. Also denies any shortness of breath cough or any respiratory symptoms. She was subsequently found to have a small-bowel obstruction. Patient has had multiple intra-abdominal procedures because of her cancer. She is not had a bowel obstruction previously White blood cell count was normal. She had NG tube placed because of her distention. Surgery was consulted and she was admitted to my service for conservative therapy Discharge Providers Provider Date of admission: 07/02/23 01: Discharge Date: 07/21/23 Primary care physician: Chuy uGdino MD Consults: 07/02/23 01:12 Consult to General Surgery Stat Comment: Consulting Provider: Zayra Granados Reason for consultation: SBO Has provider been notified: Yes 07/07/23 10:04 Consult to Dietitian, Adult Routine Comment: Reason For Exam: TPN 07/11/23 10:41 Consult to Occupational Therapy Evaluate & Treat Comment: Physician Instructions: Evaluate and treat Consult to Physical Therapy Evaluate & Treat Comment: Physician Instructions: Evaluate and Treat Discharge provider: Chuy Gudino MD Summary Hospital Course Discharge Diagnosis: 1. Small-bowel obstruction, status post exploratory laparotomy lysis of adhesions, resolved 2. Atrial fibrillation initially with rapid ventricular response now rate controlled 3. Acute respiratory failure secondary to pneumonia, requiring mechanical ventilation, resolved 4. Pneumonia with Pseudomonas aeruginosa 5. Hypertension, now hypotensive 6. Fallopian tube carcinoma, metastatic 7. Severe protein calorie malnutrition Hospital Course: Patient was admitted as noted above with small-bowel obstruction. She eventually required surgery for lysis of adhesions to resolve her bowel obstruction. She tolerated surgery without particular difficulty and had rapid return of bowel function. She was on TPN temporarily around the time of surgery as well as with her medical complications but once she was able to eat (after she was extubated) she had no further GI difficulty. Prior to surgery patient went into atrial fibrillation with rapid ventricular response. She required aggressive treatment for rate control. She was not able to be returned to sinus rhythm with medication. She had her rate controlled initially with IV diltiazem and eventually was switched to oral medications when she was able to take orals. She remained in atrial fibrillation at time of discharge with the much more controlled response. She was initially anticoagulated but when patient's goals of care changed and she was discharged home with hospice long-term anticoagulation was discontinued Patient also developed respiratory distress in the perioperative period. She returned from the OR intubated, was rapidly extubated the next day, but declined over approximately 24 hours and required re-intubation. X-ray showed evidence of acute alveolar type infiltrate in the right lower lobe as well as probably some volume overload. Her sputum subsequently did grow Pseudomonas aeruginosa. She was diuresed for the pulmonary edema component and received broad-spectrum IV antibiotics that were eventually tailored to the Pseudomonas once that species was identified. Patient did improve with this, and was able to be extubated and breathing on her own eventually off of any supplemental oxygen therapy. She completed a full 7 days parental antibiotics for the Pseudomonas and showed no evidence of ongoing respiratory issues following this. Chest x-ray showed slow but clear clearing of her infiltrate Patient initially required some blood pressure support postoperatively but eventually her vital signs settled down. Initially after extubation patient was back to her usual hypertensive status and required her usual antihypertensive medications. However over the course of her hospitalization patient's blood pressure sure became lower and lower eventually frankly hypotensive. She had almost all of her antihypertensive therapy discontinued save for some low-dose beta krystyna for rate control. Digoxin was instituted to help with rate control of the atrial fibrillation (in the setting of the hypotension). She persisted with modest hypotension at times. Patient had very poor appetite and was struggling to maintain nutrition and hydration orally. However she did not show evidence of significant prerenal azotemia or other abnormalities when blood work was checked. She continued to be globally weak and while initially seem to be improving then had a decline. She did not, on evaluation, have evidence of some reversible cause for her overall decline including her modest hypotension as well as her generalized weakness. She was barely able to even stand or participate with transfers with physical therapy. Given patient's pre-admission status with her chronic long-term cancer as well as her failure to really respond appropriately postoperatively with multiple medical complications as above, discussions were held with patient spouse and other members of her family. Goals of care in the short term and long-term were explored and identified. Patient clearly wanted to return home rather than some sort of rehabilitation facility etcetera. Given lack of improvement and lack of findable, reversible cause for her ongoing decline, it was decided that patient's best interest would be best served and her goals of care would best be met by sending her home under the care of hospice. We will continue treating her atrial fibrillation for rate control alone, and otherwise focusing on comfort care. She does not need any additional antihypertensive therapy, not appropriate for long-term anticoagulation in the setting of atrial fibrillation etcetera. Status at Discharge Cognitive/behavioral status at discharge: at baseline, oriented Functional status at discharge: bed bound Overall status at discharge: patient is not back to baseline Exam Vital Signs (past 8 hours): - 07/21/23 00:00 07/21/23 04:00 Temperature 97.2 F L 97.7 F Pulse Rate 55 L 85 Respiratory Rate 16 20 Blood Pressure 110/64 101/54 L Pulse Oximetry 92 91 Oxygen Flow Rate 0 0 Fraction of Inspired Oxygen 28 SaO2/FiO2 Ratio 296 Oxygen Delivery Method Room Air Oxygen Flow Rate 0 Narrative Exam Narrative: Cachectic-appearing elderly female in no obvious distress lying quietly in her hospital bed HEENT-unremarkable Lungs-good breath sounds Heart-irregularly irregular Abdomen-positive bowel tones soft nontender nondistended Extremities-no edema Objective Labs 07/18/23 04:30 07/21/23 07:33 [facility] Medical History Symptomatic anemia Port-A-Cath in place Scoliosis Arthritis Pulmonary nodule Fallopian tube carcinoma Essential hypertension Surgical History Status post hip hemiarthroplasty (04/01/22) History of lung biopsy (2016) S/P total abdominal hysterectomy and bilateral salpingo-oophorectomy (~2013) History of partial pancreatectomy Status post exploratory laparotomy Status post splenectomy (2015) Social History household members: spouse Smoking Status: Former smoker alcohol intake: former Discharge Assessment & Plan Assessment and Plan Plan of Treatment: Home with hospice for end of life care to maximize her time at home and quality of life at home Continue medication for rate control of her atrial fibrillation while minimizing hypotension. Therefore digoxin plus low-dose carvedilol which is a long-term medication for her. Discharge Plan Discharge Plan Patient Disposition: Hospice - Home Discharge orders & Medications Prescriptions: New digoxin 125 mcg (0.125 mg) Tablet 0.125 mg PO Q OTHER DAY Qty: 30 3RF carvedilol 6.25 mg tablet 6.25 mg PO BID Qty: 60 3RF Rx Instructions: must administer with a meal/food Cetacaine Anesthetic 2-2-14 % Liquid 1 applic topical PRN PRN (Reason: Sore Throat) Qty: 14 0RF oxycodone 5 mg Tablet 5 mg PO Q3HR PRN (Reason: Pain, Moderate (4-6)) Qty: 10 0RF Continued acetaminophen [Tylenol] 325 mg capsule 650 mg PO QID PRN (Reason: pain) Qty: 60 0RF Discontinued furosemide 20 mg tablet 40 mg PO DAILY Qty: 180 0RF felodipine 2.5 mg tablet extended release 24 hr 2.5 mg PO DAILY Qty: 90 3RF carvedilol phosphate 40 mg capsule, ER multiphase 24 hr See Rx Instructions PO DAILY Rx Instructions: 2 tabs in AM, 1 in PM orally daily; gabapentin 100 mg capsule 200 mg PO DAILY telmisartan 40 mg tablet 40 mg PO BID Myrbetriq 25 mg tablet extended release 24 hr 25 mg PO DAILY Avastin 25 mg/mL solution 25 mg IV QMONTH prochlorperazine maleate [Compazine] 10 mg tablet 10 mg PO Q6H PRN (Reason: Nausea) Patient Comments: no longer takes Discharge Health Status Multidrug resistant organism: No MDRO Diet/Activity/Treatments Diet: Diet as Tolerated Discharge Data Primary Care Provider: Chuy Gudino
[2023-07-21 07:52] LABS: Blood Urea Nitrogen 78 mg/dL (7-17); Calcium 7.6 mg/dL (8.4-10.2); Carbon Dioxide 23 mmol/L (22-32); Chloride 118 mmol/L (98-107); Estimated Glomerular Filt Rate 45 mL/min (>60); Glucose 93 mg/dL (80-110); HEMOLYSIS < 15 (0-50); Potassium 4.3 mmol/L (3.4-5.1); Sodium 145 mmol/L (137-145)
[2023-07-21 08:19] VITALS: BP 109/53; PULSE 60; RESP 16; O2SAT 94
[2023-07-21 08:30] LABS: Digoxin 1.5 ng/mL (0.8-2.0)
[2023-07-21 08:45] VITALS: BP 109/53; PULSE 90
[2023-07-21] MEDS: predniSONE 20 MG TABLET 10 MG PO (08:45)
[2023-07-21] MEDS: carvediloL 12.5 MG TABLET 6.25 MG PO (08:45)
[2023-07-21] MEDS: LORazepam 0.5 MG TABLET PO (09:16)
[2023-07-21] MEDS: MORPHINE 2 MG/ML INJ IV ×18 (10:54→15:41)
--- NOTE | 2023-07-21 11:09 | CM.DPC ---
DCP Cont. Reviewed EMR and team rounds for status updates. Pt has declined rapidly overnight, now demonstrating s/s of impending . She will be transported today by BLS home, hospice will open between 2-3pm. Her 2-adult children are en route from out of state, and should arrive at the home by 4:00pm. This PODIATRY PROFESSOR called pt's spouse and offered anticipatory grief support and reassurance for her return home and current level of comfort. Will continue to monitor for any further support/discharge needs.
[2023-07-21] MEDS: LORazepam 2 MG/ML INJ IV ×3 (14:17→15:41)
--- NOTE | 2023-07-21 17:31 | PC.NURSE ---
Day shift: 0845 Pt had a 1 minute episode of Asystole, began agonal breathing after. Dr Gudino notified, original plan was for pt to discharge home today with Hospice care in place. 1030 Pt Sebas at bedside, extremely concerned that he will not be able to care for pt at home in her current condition, pt continues to be agonal breathing, and has become non-verbal. Dr Gudino updated on pt status, he agrees that pt will probably pass here. Updated Case Management that pt will not be going home today at 1300. [address] Gudino at bedside, new orders for Morphine 2mg, IVP, verbal order to administer Morphine every 10 minutes until pt comfortable. [address] Gudino, pt continues to be uncomfortable, new order for Ativan 2mg, Q30 minutes obtained 1608 Pt with this nurse and Sebas at bedside Family requests pt be taken to [facility], all belongings went home with Sebas and DG Buenrostro, no further pt contact, RIP
--- NOTE | 2023-07-22 07:14 | P.DN_ITS ---
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 Symptoms were less than 24 hours in duration. She had nausea but no emesis. Also denies any shortness of breath cough or any respiratory symptoms. She was subsequently found to have a small-bowel obstruction. Patient has had multiple intra-abdominal procedures because of her cancer. She is not had a bowel obstruction previously White blood cell count was normal. She had NG tube placed because of her distention. Surgery was consulted and she was admitted to my service for conservative therapy Hospital Course Date of Admission: 07/02/23 01:27 Date of : 07/21/23 Primary care provider: Chuy Gudino MD Consults: 07/02/23 01:12 Consult to General Surgery Stat Comment: Consulting Provider: Zayra Granados Reason for consultation: SBO Has provider been notified: Yes 07/07/23 10:04 Consult to Dietitian, Adult Routine Comment: Reason For Exam: TPN 07/11/23 10:41 Consult to Occupational Therapy Evaluate & Treat Comment: Physician Instructions: Evaluate and treat Consult to Physical Therapy Evaluate & Treat Comment: Physician Instructions: Evaluate and Treat Discharge Diagnosis: 1. Small-bowel obstruction, status post exploratory laparotomy lysis of adhesions, resolved 2. Atrial fibrillation initially with rapid ventricular response now rate controlled 3. Acute respiratory failure secondary to pneumonia, requiring mechanical ventilation, resolved 4. Pneumonia with Pseudomonas aeruginosa 5. Hypertension, now hypotensive 6. Fallopian tube carcinoma, metastatic 7. Severe protein calorie malnutrition Hospital Course: Patient was admitted as noted above with small-bowel obstruction. She eventually required surgery for lysis of adhesions to resolve her bowel obstruction. She tolerated surgery without particular difficulty and had rapid return of bowel function. She was on TPN temporarily around the time of surgery as well as with her medical complications but once she was able to eat (after she was extubated) she had no further GI difficulty. Prior to surgery patient went into atrial fibrillation with rapid ventricular response. She required aggressive treatment for rate control. She was not able to be returned to sinus rhythm with medication. She had her rate controlled initially with IV diltiazem and eventually was switched to oral medications when she was able to take orals. She remained in atrial fibrillation at time of discharge with the much more controlled response. She was initially anticoagulated but when patient's goals of care changed and she was discharged home with hospice long-term anticoagulation was discontinued Patient also developed respiratory distress in the perioperative period. She returned from the OR intubated, was rapidly extubated the next day, but declined over approximately 24 hours and required re-intubation. X-ray showed evidence of acute alveolar type infiltrate in the right lower lobe as well as probably some volume overload. Her sputum subsequently did grow Pseudomonas aeruginosa. She was diuresed for the pulmonary edema component and received broad-spectrum IV antibiotics that were eventually tailored to the Pseudomonas once that species was identified. Patient did improve with this, and was able to be extubated and breathing on her own eventually off of any supplemental oxygen therapy. She completed a full 7 days parental antibiotics for the Pseudomonas and showed no evidence of ongoing respiratory issues following this. Chest x- ray showed slow but clear clearing of her infiltrate Patient initially required some blood pressure support postoperatively but eventually her vital signs settled down. Initially after extubation patient was back to her usual hypertensive status and required her usual antihypertensive medications. However over the course of her hospitalization patient's blood pressure sure became lower and lower eventually frankly hypotensive. She had almost all of her antihypertensive therapy discontinued save for some low-dose beta krystyna for rate control. Digoxin was instituted to help with rate control of the atrial fibrillation (in the setting of the hypotension). She persisted with modest hypotension at times. Patient had very poor appetite and was struggling to maintain nutrition and hydration orally. However she did not show evidence of significant prerenal azotemia or other abnormalities when blood work was checked. She continued to be globally weak and while initially seem to be improving then had a decline. She did not, on evaluation, have evidence of some reversible cause for her overall decline including her modest hypotension as well as her generalized weakness. She was barely able to even stand or participate with transfers with physical therapy. Given patient's pre-admission status with her chronic long-term cancer as well as her failure to really respond appropriately postoperatively with multiple medical complications as above, discussions were held with patient spouse and other members of her family. Goals of care in the short term and long-term were explored and identified. Patient clearly wanted to return home rather than some sort of rehabilitation facility etcetera. Given lack of improvement and lack of findable, reversible cause for her ongoing decline, it was decided that patient's best interest would be best served and her goals of care would best be met by sending her home under the care of hospice. However, prior to being able to facilitate actual transfer home, on morning of anticipated transfer home for terminal care, patient had increasing episodes of disordered breathing, pauses in her cardiac rhythm up to 60 seconds. She basically became minimally responsive. Discharge home with hospice was canceled and she was treated his comfort care with as needed dosing of parental morphine and lorazepam. Patient actually returned to a sinus rhythm for the first time during this hospitalization prior to her demise but she subsequently with family at bedside (her spouse Sebas). Objective Labs 07/18/23 04:30 07/21/23 07:33 Labs: Laboratory Results - last 24 hr 07/21/23 07:33 Sodium 145 Potassium 4.3 Chloride 118 H Carbon Dioxide 23 BUN 78 H Creatinine 1.20 H Estimated GFR 45 L BUN/Creatinine Ratio 65.0 H Glucose 93 Calcium 7.6 L Digoxin 1.5
== END 2023-07-21 16:45 | disposition expired | DRG 335 ==
LOC: ED 07-02 01:06 → AC 07-02 01:27 → ICU 07-04 10:41
PROVIDERS: Anesthesiology Critical Care Medicine; Family Medicine; Internal Medicine Critical Care Medicine; Surgery; Admitting Provider Internal Medicine; Emergency Provider Emergency Medicine; Family Provider Internal Medicine; PCP Internal Medicine; Referring Provider Emergency Medicine; Visit Provider Internal Medicine
PROC: 0DN80ZZ Release Small Intestine, Open Approach (ICD-10-PCS; CPT 49000; principal; 2023-07-04 10:00)
DX: K56.50 Intestinal adhesions [bands], unspecified as to partial versus complete obstruction (principal); E43 Unspecified severe protein-calorie malnutrition; J18.9 Pneumonia, unspecified organism; J96.01 Acute respiratory failure with hypoxia; N17.9 Acute kidney failure, unspecified; J81.1 Chronic pulmonary edema; N39.0 Urinary tract infection, site not specified; Z68.1 Body mass index [BMI] 19.9 or less, adult; I10 Essential (primary) hypertension; I48.91 Unspecified atrial fibrillation; E86.0 Dehydration; E03.9 Hypothyroidism, unspecified; C57.00 Malignant neoplasm of unspecified fallopian tube; B96.5 Pseudomonas (aeruginosa) (mallei) (pseudomallei) as the cause of diseases classified elsewhere; R73.9 Hyperglycemia, unspecified; R19.7 Diarrhea, unspecified; Z51.5 Encounter for palliative care; Z87.891 Personal history of nicotine dependence; Z66 Do not resuscitate
CPT/HCPCS: 36415; 36573; 36592; 36600; 44005; 71045; 74018; 74019; 74177; 80048; 80053; 80162; 80202; 82805; 82962; 83690; 83735; 83880; 84100; 84132; 84134; 84439; 84443; 84478; 85007; 85025; 85610; 87040; 87070; 87077; 87186; 87205; 87493; 87797; 93005; 93010; 93306; 94002; 94003; 94010; 94660; 94760; 94799; 96374; 96376; 97162; 97166; 97530; 97535; 99223; 99232; 99233; 99238; 99285; 99291; 99418; B4185; B4189; C9113; J0330; J0692; J0696; J0780; J1100; J1160; J1170; J1200; J1644; J1650; J1815; J1940; J2060; J2270; J2405; J2704; J2920; J3010; J3370; J3475; J3480; J7121; P9041; Q9967